=== PATIENT | male | born 1950 | race Caucasian/White ===

== ENCOUNTER 2023-08-26 17:17 | Inpatient (IN) ==
[2023-08-26] MEDS ORDERED: RAPID SEQUENCE INDUCTION BAG ONE (17:18)
[2023-08-26] MEDS ORDERED: SODIUM CHLORIDE 0.9% 1,000 ML IV SCH (17:30)
[2023-08-26] MEDS ORDERED: PIPERACILLIN/TAZOBACTAM 4.5 GM in DEXTROSE 5% MINI-B 100 ML IV ONE (17:34)
[2023-08-26 17:40] LABS: iSTAT Arterial Blood Gas HCO3 23 meg/L (19-24); iSTAT Arterial Blood Gas pCO2 35 mmHg (35-46); iSTAT Arterial Blood Gas pH 7.44 (7.35-7.45); iSTAT Arterial Blood Gas pO2 135 mmHg (80-95); iSTAT Carbon Dioxide 24 mmol/L (24-31); iSTAT Hematocrit 32 % (42-52); iSTAT Hemoglobin 10.9 g/dl (14.0-18.0); iSTAT Potassium 4.1 mmol/L (3.3-5.0); iSTAT Sodium 140 mmol/L (135-144)
--- NOTE | 2023-08-26 17:50 | XRay Report ---
XR chest 1V portable CLINICAL HISTORY: Sepsis TECHNIQUE: Single frontal radiograph of the chest was obtained. Comparison: None available at the time of this dictation. FINDINGS: Orthopedic hardware is seen overlying rib fractures. The cardiomediastinal silhouette is normal. Left retrocardiac opacity is seen. No evidence of pleural effusion or pneumothorax. IMPRESSION: Left retrocardiac opacity. which may represent atelectasis, pneumonia, and/or aspiration. ACT 112: Negative or not required by law. Electronically signed by: Brando Yuen M.D. 08/26/2023 5:49 PM
[2023-08-26 17:52] LABS: iSTAT Creatinine 2.7 mg/dl (0.6-1.3); iSTAT Hemoglobin 11.6 g/dl (14.0-18.0); iSTAT Ionized Calcium 1.14 mmol/l (1.12-1.32); iSTAT Potassium 4.4 mmol/L (3.3-5.0)
[2023-08-26 18:10] LABS: Basophils # (auto) 0.04 K/uL (0.00-0.20); Basophils % (auto) 0.2 %; Hematocrit (blood only) 31.4 % (42.0-52.0); Hemoglobin 10.4 g/dl (14.0-18.0); Immature Granulocytes % (auto) 1.2 %; Lymphocytes # (auto) 0.88 K/uL (1.20-3.40); Lymphocytes % (auto) 5.1 %; Mean Corpuscular Hemoglobin 31.4 pg (25.0-34.0); Mean Corpuscular Hgb Conc 33.1 g/dL (32.0-36.0); Mean Corpuscular Volume 94.9 fL (80.0-100.0); Mean Platelet Volume 9.7 fL (9.4-12.4); Monocytes # (auto) 1.01 K/uL (0.11-0.59); Monocytes % (auto) 5.9 %; Neutrophils # (auto) 15.06 K/uL (1.40-6.50); Neutrophils % (auto) 87.6 %; Platelet Count 373 K/uL (130-400); RDW Coefficient of Variation 13.4 % (11.5-14.5); RDW Standard Deviation 46.5 fL (36.4-46.3); Red Blood Count 3.31 M/uL (4.70-6.10); White Blood Count 17.19 K/ul (4.8-10.8)
--- NOTE | 2023-08-26 18:26 | CT Scan Report ---
Exam(s): CT HEAD Without Contrast EXAM: CT Head Without Intravenous Contrast CLINICAL HISTORY: Reason for exam: ams. TECHNIQUE: Axial computed tomography images of the head/brain without intravenous contrast. CTDI is 38.74 mGy and DLP is 156.1 mGy-cm. Automated exposure control was utilized for the study. A dose lowering technique was utilized adhering to the principles of ALARA. COMPARISON: None FINDINGS: Brain: No acute infarct or hemorrhage identified. No extra-axial fluid collection. No mass effect or midline shift. Scattered areas of hypoattenuation in the supratentorial white matter likely represent chronic small vessel ischemic changes. Ventricles and sulci: Prominence of the ventricles and sulci is likely secondary to cerebral volume loss. Bones: Normal. No bony lesion or acute fracture. Subcutaneous tissues: Normal. Sinuses: Moderate mucosal thickening in the left sphenoid sinus. Mastoid air cells: Normal. Orbits: Bilateral lens implants. Other: Atherosclerotic calcifications in the intracranial vasculature. IMPRESSION: 1. No acute intracranial abnormality. 2. Chronic small vessel ischemic changes and cerebral volume loss. Electronically signed by: Serafin Tanner M.D. 08/26/23 18:25 PM
[2023-08-26 18:27] LABS: Alanine Aminotransferase 37 U/L (7-52); Albumin Level 3.7 gm/dl (3.4-5.0); Alkaline Phosphatase 281 U/L (34-104); Anion Gap 16 (3-11); Aspartate Aminotransferase 25 U/L (13-39); BUN Creatinine Ratio 23.5 (10-20); Bilirubin Direct 0.2 mg/dl (0-0.2); Bilirubin,Total 0.6 mg/dl (0.2-1.0); Blood Urea Nitrogen 57 mg/dl (6-23); Calcium 9.4 mg/dl (8.6-10.3); Carbon Dioxide 23 mmol/L (21-32); Chloride 102 mmol/L (98-107); Est GFR (African American) 29.7 ml/min; Est GFR (Non-African American) 25.6 ml/min; Glucose 137 mg/dl (70-99(Fasting)); Potassium 3.9 mmol/L (3.5-5.1); Sodium 141 mmol/L (136-145); Total Protein 6.9 gm/dl (6.0-8.3)
[2023-08-26] MEDS ORDERED: PIPERACILLIN/TAZOBACTAM 4.5 GM/100ML D5W IV ONE (18:27)
[2023-08-26] MEDS ORDERED: SODIUM CHLORIDE 0.9% 1,000 ML IV ONE (18:28)
[2023-08-26] MEDS ORDERED: SODIUM CHLORIDE 0.9% 500 ML IV ONE (18:28)
--- NOTE | 2023-08-26 18:33 | CT Scan Report ---
Exam(s): CT CHEST Without Contrast EXAM: CT Chest Without Intravenous Contrast CLINICAL HISTORY: Reason for exam: ro empyema. TECHNIQUE: Axial computed tomography images of the chest without intravenous contrast. CTDI is 38.74 mGy and DLP is 624.41 mGy-cm. Automated exposure control was utilized for the study. A dose lowering technique was utilized adhering to the principles of ALARA. COMPARISON: Same day chest radiograph FINDINGS: Lungs: Patchy consolidations and nodules/masses throughout the lungs. The largest nodule/mass or adjacent nodules/masses is located in the left upper lobe, measuring 4.6 x 4.0 x 4.7 cm. Findings are concerning for neoplasm/metastases and pneumonia. Pleural space: Unremarkable. No pneumothorax. No significant effusion. Heart: Coronary artery and aortic valve calcifications. No cardiomegaly. No significant pericardial effusion. Bones/joints: Mild degenerative changes of the spine. Old bilateral rib fracture deformities with plate and screw fixations of some of the ribs. No dislocation. Soft tissues: Unremarkable. Vasculature: Atherosclerotic changes in the aorta. No aortic aneurysm. Lymph nodes: Unremarkable. No enlarged lymph nodes. Spleen: Calcified granuloma in the spleen. Stomach and bowel: Dilated bowel, probably colon, partially visualized in the upper abdomen and incompletely evaluated on this exam. IMPRESSION: Patchy consolidations and nodules/masses throughout the lungs. The largest nodule/mass or adjacent nodules/masses is located in the left upper lobe, measuring 4.6 x 4.0 x 4.7 cm. Findings are concerning for neoplasm/metastases and pneumonia. No empyema. Electronically signed by: Serafin Tanner M.D. 08/26/23 18:32 PM
[2023-08-26 18:38] LABS: Troponin I High Sensitivity 79.5 pg/ml (0-20)
--- NOTE | 2023-08-26 18:46 | History & Physical Report ---
Date of Service August 26, 2023 Assessment & Plan (1) Hypoxia: Plan: Patient was at [facility] from 07/24-08/26; admitted for alcohol withdrawal and seizures; required intubation; aspiration pneumonia Discharged to [facility] on 08/26 and became hypoxic at 78% on RA Started on BiPAP in the ED; FiO2 [address]AF Chest CT revealed patchy consolidations in nodules/masses throughout the lungs with the largest being in the left upper lobe Seizure precautions Continue BiPAP Keep n.p.o. for now Continuous telemetry monitoring Trend ABGs q4h Solu-Medrol 125 mg IV given in the ED Continue Solu-Medrol 40 mg IV q8h Continue pantoprazole for stress ulcers Pulmonology consulted A.m. CBC, BMP, mag, troponin, lactate (2) Aspiration pneumonia: Plan: Leukocytosis at 17.19 with neutrophil predominance Procalcitonin WNL 0.34 CXR revealed left retrocardiac opacity, which may represent atelectasis, pneumonia, and/or aspiration Zosyn 4.5g IV q8h Linezolid 600 mg IV q12h for MRSA coverage (chosen based on Patient's kidney function) Acetaminophen as needed for pain 1-3 Tramadol as needed for breakthrough pain Speech therapy eval placed in the setting of potential aspiration PNA, difficulty swallowing (3) Sepsis: Plan: Pulmonary source Lactate 2.7 --> 2.9 in the ED Blood cultures ordered, pending Fluid resuscitation given in the ED at 30cc/kg Target MAP > 65mmHg Strict I&O monitoring (4) Paroxysmal A-fib: Plan: EKG NSR at 85 bpm on arrival Continue metoprolol, Eliquis, amiodarone Patient had a planned amiodarone taper from 400 mg p.o. BID --> amiodarone 200 mg p.o. BID --> amiodarone 200 mg daily (5) Alcohol abuse: Plan: History of seizures related to EtOH abuse Seizure precautions (6) COPD (chronic obstructive pulmonary disease): Plan: Continue Incruse Ellipta DuoNeb q4h (7) Elevated troponin: Plan: Troponin 79.5, repeat pending Unable to assess if patient is having chest pain A.m. troponin (8) CKD (chronic kidney disease), stage IV: Plan: Acute on chronic BUN 57, creatinine 2.43, EGFR 25.6 Most recent renal function on 08/25: BUN 35.8, creatinine 1.5 Avoid nephrotoxic agents Plan Disposition: Admit to PCU telemetry Full code Keep n.p.o. while on BiPAP VTE PPx: On Eliquis History of Present Illness Chief Complaint: Respiratory distress Primary Care Provider: JIL PCP Pipe is a 73-year-old male with PMH of EtOH dependence, alcohol withdrawal seizures, COPD, paroxysmal A-fib, PMR, Hx of DVT, CKD stage III, and chronic lower back pain with opioid dependence. [facility] from [facility] for pneumonia. Patient was admitted to [facility] on 08/03 due to alcohol withdrawal and seizures, and required intubation and mechanical ventilation. Patient was [facility], where he became hypoxic with EMS. Patient was started on BiPAP in the ED. Nonverbal, lethargic, unable to follow commands, however responds to stimuli and is able to nod when asked questions. Vital stable at time of admission (on BiPAP; FiO2 ratio 55). ED course: NSS 1000 mL x 2 Zosyn 4.5g IV BiPAP Unable to obtain ROS According to documentation from [facility], the patient has a standing order for full resuscitation as of 08/26/2023 at 1307; patient is not currently able to provide a CODE STATUS. Per review of hospitalist progress note on 08/25/2023 patient was A&Ox 3 and conversant. He was nonverbal, lethargic upon arrival in the ED. However, he became oriented to name, birthday, and location (not month) upon initial resuscitation on BiPap. Attempted to contact patient's daughter, Hortencia, but was unable to reach. Allergies Allergy/AdvReac Type Severity Reaction Status Date / Time bee venom protein (honey bee) Allergy Severe Anaphylaxis Verified 08/26/23 19:49 ibuprofen [From Motrin] AdvReac Mild Rash Verified 08/26/23 19:13 Home Medications Medication Instructions Recorded Confirmed Type acetaminophen 325 mg tablet 650 mg PO Q4H PRN Pain (Scale 08/26/23 08/26/23 History (Tylenol) Score 1-3) albuterol sulfate 90 mcg/actuation 1 puff inhalation Q6H PRN Wheezing 08/26/23 08/26/23 History aerosol inhaler amiodarone 200 mg tablet 200 mg PO DAILY 08/26/23 08/26/23 History amiodarone 200 mg tablet 200 mg PO Q12H 08/26/23 08/26/23 History amiodarone 200 mg tablet 400 mg PO BID 08/26/23 08/26/23 History apixaban 5 mg tablet (Eliquis) 5 mg PO Q12H 08/26/23 08/26/23 History bisacodyl 10 mg rectal suppository 10 mg AR DAILY PRN Constipation 08/26/23 08/26/23 History cholecalciferol (vitamin D3) 50 50 mcg PO DAILY 08/26/23 08/26/23 History mcg (2,000 unit) capsule (Vitamin D3) dextrose 40 % oral gel 1 ea PO DIRECTED PRN 08/26/23 08/26/23 History Hypoglycemia docusate sodium 100 mg capsule 100 mg PO BID 08/26/23 08/26/23 History hydroxychloroquine 200 mg tablet 200 mg PO Q12H 08/26/23 08/26/23 History ipratropium 0.5 mg-albuterol 3 mg 3 ml inhalation Q4H 08/26/23 08/26/23 History (2.5 mg base)/3 mL nebulization soln magnesium hydroxide 400 mg/5 mL 30 ml PO DAILY PRN Constipation 08/26/23 08/26/23 History oral suspension (Milk of Magnesia) metoprolol tartrate 25 mg tablet 25 mg PO Q12H 08/26/23 08/26/23 History multivitamin with minerals 1 tab PO DAILY 08/26/23 08/26/23 History nortriptyline 25 mg capsule 50 mg PO DAILY 08/26/23 08/26/23 History ondansetron HCl 4 mg tablet 4 mg PO Q4H PRN NAUSEA/VOMITING 08/26/23 08/26/23 History pantoprazole 40 mg tablet,delayed 40 mg PO DAILYBB 08/26/23 08/26/23 History release polyethylene glycol 3350 17 17 g PO QDL PRN Constipation 08/26/23 08/26/23 History gram/dose oral powder (Miralax) prednisone 20 mg tablet 40 mg PO DAILY 08/26/23 08/26/23 History sennosides 8.6 mg-docusate sodium 1 tab-cap PO QDL PRN Constipation 08/26/23 08/26/23 History 50 mg tablet (Senokot-S) sodium phosphates 19 gram-7 118 ml AR DAILY PRN Constipation 08/26/23 08/26/23 History gram/118 mL enema (Fleet Enema) tizanidine 2 mg tablet 2 mg PO TID PRN MUSCLE SPASMS 08/26/23 08/26/23 History tramadol 50 mg tablet 50 mg PO Q6H PRN Pain (Scale Score 08/26/23 08/26/23 History 4-6) tramadol 50 mg tablet 100 mg PO Q6H PRN Pain (Scale 08/26/23 08/26/23 History Score 7-10) umeclidinium 62.5 mcg/actuation 1 inh inhalation DAILY 08/26/23 08/26/23 History blister powder for inhalation (Incruse Ellipta) zinc sulfate 50 mg zinc (220 mg) 50 mg PO DAILY 08/26/23 08/26/23 History capsule Past Med/Surg History Medical History (Updated 08/27/23 @ 11:57 by Neal Randall MD) Abnormal CT scan, chest CKD (chronic kidney disease), stage IV Acute metabolic encephalopathy Severe protein-calorie malnutrition COPD (chronic obstructive pulmonary disease) Polymyalgia rheumatica Stress-induced cardiomyopathy SHEBA (acute kidney injury) Alcohol abuse Paroxysmal A-fib Aspiration pneumonia Social History Smoking Status: Former smoker Second Hand Exposure: No; Do You Dip or Chew Tobacco: No; Tobacco Cessation Education Requested by Patient: No Hx Alcohol Use: Yes Alcohol type: beer and hard liquor Hx Substance Use: No Preferred Language: Mohawk Communication Ability: 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 Beliefs That Will Affect Care: None Current Living Situation: Alone Current Living Situation Comment: [facility] Other Information That Helps Us Care for You: No Feels Safe at Home: Hesitant to Answer Safety Concerns: Feels Safe At This Time Assistive Devices: Cane Review of Systems Review of Systems: See HPI above Physical Exam Physical Exam: General: Frail-appearing; on BiPAP; drifting to the left; acute respiratory distress; lethargic; non-toxic appearing; cachectic appearance cooperative HEENT: normocephalic, atraumatic; difficulty opening eyes; no scleral icterus; dry mucus membrane; vision and hearing grossly intact Neck: supple; no lymphadenopathy; trachea midline Skin: warm, dry without signs of tenting; no cyanosis; no rashes, bruising, lesions, or erythema noted CV: chest wall NTP; RRR; S1/S2 normal; no murmurs/rubs/gallops; pulses intact and symmetric at radial, DP, and PT Lungs: acute respiratory distress; symmetrical chest wall expansion; decreased breath sounds auscultated at the lower lung fried B/L ABD: Soft, NTP; BS present; no rebound/guarding; no ascites; no distention MSK: no tics or fasciculations; no edema noted in the LEs b/l Neuro: Patient is minimally conversant with BiPAP on; lethargic; responds to stimuli; does not respond to commands, such as wiggling toes Results & Data Results & Data Vital Signs (Past 12 Hours) Vital Signs Temp Pulse Resp BP Pulse Ox O2 Del Method FiO2 08/26/23 18:30 122/81 08/26/23 18:30 87 27 H 98 08/26/23 18:27 87 24 94 08/26/23 18:27 37.3 C 129/85 08/26/23 18:19 89 27 H 97 55 08/26/23 18:16 86 26 H 97 08/26/23 17:40 BiPAP 08/26/23 17:30 106/75 08/26/23 17:30 85 27 H 97 BiPAP 08/26/23 17:30 87 27 H 80 08/26/23 17:27 85 28 H 08/26/23 17:22 83 34 H 86/54 L 92 BiPAP Laboratory Results Abnormal lab results 08/26/23 08/26/23 08/26/23 Range/Units 17:27 17:38 17:47 WBC 17.19 H (4.8-10.8) K/ul RBC 3.31 L (4.70-6.10) M/uL Hgb 10.4 L (14.0-18.0) g/dl POC Hgb 10.9 L 11.6 L (14.0-18.0) g/dl Hct 31.4 L (42.0-52.0) % POC Hct 32 L 34 L (42-52) % RDW Std Deviation 46.5 H (36.4-46.3) fL Neut # (Auto) 15.06 H (1.40-6.50) K/uL Lymph # (Auto) 0.88 L (1.20-3.40) K/uL Andrew # (Auto) 1.01 H (0.11-0.59) K/uL PT 14.3 H (9.0-12.0) Seconds INR 1.3 H (0.9-1.1) POC pO2 135 H (80-95) mmHg POC ABG O2 Sat 99.0 H (90-95) % POC Chloride 100 L (101-112) mmol/L Anion Gap 16 H (3-11) POC BUN 50 H (7-18) mg/dl BUN 57 H (6-23) mg/dl Creatinine 2.43 H (0.6-1.4) mg/dl POC Creatinine 2.7 H (0.6-1.3) mg/dl BUN/Creatinine Ratio 23.5 H (10-20) Glucose 137 H (70-99(Fasting)) mg/dl POC Glucose (other) 134 H (70-99) mg/dl Lactate 2.7 H* (0.4-2.0) mmol/L Alkaline Phosphatase 281 H (34-104) U/L Troponin I High Sens 79.5 H* (0-20) pg/ml Diagnostic Findings Chest X-Ray 08/26/23 17:22 XR chest 1V portable CLINICAL HISTORY: Sepsis TECHNIQUE: Single frontal radiograph of the chest was obtained. Comparison: None available at the time of this dictation. FINDINGS: Orthopedic hardware is seen overlying rib fractures. The cardiomediastinal silhouette is normal. Left retrocardiac opacity is seen. No evidence of pleural effusion or pneumothorax. IMPRESSION: Left retrocardiac opacity. which may represent atelectasis, pneumonia, and/or aspiration. ACT 112: Negative or not required by law. Electronically signed by: Brando Yuen M.D. 08/26/2023 5:[address] 08/26/23 17:22 Exam(s): CT HEAD Without Contrast EXAM: CT Head Without Intravenous Contrast CLINICAL HISTORY: Reason for exam: ams. TECHNIQUE: Axial computed tomography images of the head/brain without intravenous contrast. CTDI is 38.74 mGy and DLP is 156.1 mGy-cm. Automated exposure control was utilized for the study. A dose lowering technique was utilized adhering to the principles of ALARA. COMPARISON: None FINDINGS: Brain: No acute infarct or hemorrhage identified. No extra-axial fluid collection. No mass effect or midline shift. Scattered areas of hypoattenuation in the supratentorial white matter likely represent chronic small vessel ischemic changes. Ventricles and sulci: Prominence of the ventricles and sulci is likely secondary to cerebral volume loss. Bones: Normal. No bony lesion or acute fracture. Subcutaneous tissues: Normal. Sinuses: Moderate mucosal thickening in the left sphenoid sinus. Mastoid air cells: Normal. Orbits: Bilateral lens implants. Other: Atherosclerotic calcifications in the intracranial vasculature. IMPRESSION: 1. No acute intracranial abnormality. 2. Chronic small vessel ischemic changes and cerebral volume loss. Electronically signed by: Serafin Tanner M.D. 08/26/23 18:[address] 08/26/23 17:48 Exam(s): CT CHEST Without Contrast EXAM: CT Chest Without Intravenous Contrast CLINICAL HISTORY: Reason for exam: ro empyema. TECHNIQUE: Axial computed tomography images of the chest without intravenous contrast. CTDI is 38.74 mGy and DLP is 624.41 mGy-cm. Automated exposure control was utilized for the study. A dose lowering technique was utilized adhering to the principles of ALARA. COMPARISON: Same day chest radiograph FINDINGS: Lungs: Patchy consolidations and nodules/masses throughout the lungs. The largest nodule/mass or adjacent nodules/masses is located in the left upper lobe, measuring 4.6 x 4.0 x 4.7 cm. Findings are concerning for neoplasm/metastases and pneumonia. Pleural space: Unremarkable. No pneumothorax. No significant effusion. Heart: Coronary artery and aortic valve calcifications. No cardiomegaly. No significant pericardial effusion. Bones/joints: Mild degenerative changes of the spine. Old bilateral rib fracture deformities with plate and screw fixations of some of the ribs. No dislocation. Soft tissues: Unremarkable. Vasculature: Atherosclerotic changes in the aorta. No aortic aneurysm. Lymph nodes: Unremarkable. No enlarged lymph nodes. Spleen: Calcified granuloma in the spleen. Stomach and bowel: Dilated bowel, probably colon, partially visualized in the upper abdomen and incompletely evaluated on this exam. IMPRESSION: Patchy consolidations and nodules/masses throughout the lungs. The largest nodule/mass or adjacent nodules/masses is located in the left upper lobe, measuring 4.6 x 4.0 x 4.7 cm. Findings are concerning for neoplasm/metastases and pneumonia. No empyema. Electronically signed by: Serafin Tanner M.D. 08/26/23 18:32 PM Code Status & VTE Plan Code Status Full code VTE Prophylaxis Plan VTE Prophylaxis will be ordered: Yes Supervising Physician Co-Signing Physician Notes Attending addendum: I have physically seen this patient, have supervised the MARIAELENA's activities, and agree with the H&P unless as otherwise noted. Assessment and Plan: Acute respiratory failure with hypoxia/aspiration pneumonia/COPD exacerbation- The patient will be admitted to telemetry for serial cardiac enzymes, serial EKG's, cardiac rhythm monitoring and a 2-D echocardiogram with Dopplers. History of recent admission at [facility] from 07/24-08/26 for alcohol withdrawal and seizures complicated by aspiration pneumonia requiring intubation. [facility], was noted to be hypoxic on room air with a pulse ox of 78%, and was referred to the ED at [facility] Will continue BiPAP started in ED, and follow serial ABGs NPO Solu-Medrol 125 mg IV given in ED Continue Solu-Medrol 40 mg IV every 8 hours Follow serial CBC with differential, chemistry profile, magnesium, troponin and lactate CT head without IV contrast shows no acute abnormality, but does show chronic small vessel change and cerebral volume loss CT chest shows patchy consolidations and nodules/masses throughout the lungs. The largest nodule/mass or adjacent nodules/masses in the left upper lobe measures 4.6 x 4.0 x 4.7 cm, with findings concerning for neoplasm/metastases and pneumonia Linezolid 600 mg IV every 12 hours Zosyn 4.5 g IV every 8 hours Duonebs every 4 hours while awake and every 2 hours when necessary. Consult pulmonology Sepsis due to aspiration pneumonia and acute respiratory failure with hypoxia- Lactate 2.7 on follow-up 2.9 Follow sputum cultures follow blood cultures and sensitivities Acute kidney injury superimposed on CKD stage IV- Creatinine 2.43 in the ED, with base from 08/25 at outside hospital 1.5 Continue IV fluids as noted, recheck laboratories in a.m. Avoiding vancomycin IV and lieu of linezolid Remaining orders and notations as noted PG Care Time/CCT Total # of Minutes Spent Total Time Spent with Patient: Total time spent is greater than 50% in coordination of care (as documented) at patient's floor/unit and/or counseling patient: [place] [address] INT INP/OBS CARE 3/75MIN Patient Type New Medical Decision Making High Complexity Diagnoses Hypoxia R09.02 Aspiration pneumonia J69.0 Sepsis A41.9 Paroxysmal A-fib I48.0 Alcohol abuse F10.10 COPD (chronic obstructive pulmonary disease) J44.9 Elevated troponin R79.89 CKD (chronic kidney disease), stage IV N18.4
[2023-08-26 18:47] LABS: INR 1.3 (0.9-1.1); Partial Thromboplastin Time 27 Seconds (21-31); Prothrombin Time 14.3 Seconds (9.0-12.0)
[2023-08-26 19:26] LABS: Adenovirus PCR Not Detected (NotDetected); Bordetella parapertussis PCR Not Detected (NotDetected); Bordetella pertussis PCR Not Detected (NotDetected); Chlamydia pneumoniae PCR Not Detected (NotDetected); Coronavirus 229E PCR Not Detected (NotDetected); Coronavirus CoV-2 (COVID19)PCR Not Detected (NotDetected); Coronavirus HKU1 PCR Not Detected (NotDetected); Coronavirus NL63 PCR Not Detected (NotDetected); Coronavirus OC43PCR Not Detected (NotDetected); Human Metapneumovirus PCR Not Detected (NotDetected); Influenza A PCR Not Detected (NotDetected); Influenza B PCR Not Detected (NotDetected); Mycoplasma pneumoniae PCR Not Detected (NotDetected); Parainfluenza Virus 1 PCR Not Detected (NotDetected); Parainfluenza Virus 2 PCR Not Detected (NotDetected); Parainfluenza Virus 3 PCR Not Detected (NotDetected); Parainfluenza Virus 4 PCR Not Detected (NotDetected); Respiratory Syncytial VirusPCR Not Detected (NotDetected); Rhinovirus/Enterovirus PCR Not Detected (NotDetected)
[2023-08-26] MEDS ORDERED: THIAMINE HCL 500 MG in SODIUM CHLORIDE 0.9% 50 ML IV STA (19:43)
[2023-08-26] MEDS ORDERED: FOLIC ACID 1 MG in SYRINGE 9.8 ML IV STA (19:45)
[2023-08-26] MEDS ORDERED: methylPREDNISolone 125 MG/2 ML VIAL IV STA (19:52)
[2023-08-26] MEDS ORDERED: LINEZOLID 600 MG/300 ML BAG IV SCH (20:00)
--- NOTE | 2023-08-26 20:02 | Emergency Department Note ---
History of Present Illness General Chief complaint: Respiratory Distress Stated complaint: RESPIRATORY FAILURE Time Seen by Provider: 08/26/23 17:21 Source: EMS History of Present Illness Provider complaint: Respiratory distress 73-year-old male presents emergency department for respiratory distress. Patient is from [facility]. EMS reports that the patient was transferred there today from [facility]. EMS reports that the patient was at [facility] and was intubated for pneumonia. EMS reports that on arrival at [facility] the patient was hypotensive, hypoxic and tachycardic. They started the patient on CPAP. Home Medications Medication Instructions Recorded Confirmed Type acetaminophen 325 mg tablet 650 mg PO Q4H PRN Pain (Scale 08/26/23 08/26/23 History (Tylenol) Score 1-3) albuterol sulfate 90 mcg/actuation 1 puff inhalation Q6H PRN Wheezing 08/26/23 08/26/23 History aerosol inhaler amiodarone 200 mg tablet 200 mg PO DAILY 08/26/23 08/26/23 History amiodarone 200 mg tablet 200 mg PO Q12H 08/26/23 08/26/23 History amiodarone 200 mg tablet 400 mg PO BID 08/26/23 08/26/23 History apixaban 5 mg tablet (Eliquis) 5 mg PO Q12H 08/26/23 08/26/23 History bisacodyl 10 mg rectal suppository 10 mg VA DAILY PRN Constipation 08/26/23 08/26/23 History cholecalciferol (vitamin D3) 50 50 mcg PO DAILY 08/26/23 08/26/23 History mcg (2,000 unit) capsule (Vitamin D3) dextrose 40 % oral gel 1 ea PO DIRECTED PRN 08/26/23 08/26/23 History Hypoglycemia docusate sodium 100 mg capsule 100 mg PO BID 08/26/23 08/26/23 History hydroxychloroquine 200 mg tablet 200 mg PO Q12H 08/26/23 08/26/23 History ipratropium 0.5 mg-albuterol 3 mg 3 ml inhalation Q4H 08/26/23 08/26/23 History (2.5 mg base)/3 mL nebulization soln magnesium hydroxide 400 mg/5 mL 30 ml PO DAILY PRN Constipation 08/26/23 08/26/23 History oral suspension (Milk of Magnesia) metoprolol tartrate 25 mg tablet 25 mg PO Q12H 08/26/23 08/26/23 History multivitamin with minerals 1 tab PO DAILY 08/26/23 08/26/23 History nortriptyline 25 mg capsule 50 mg PO DAILY 08/26/23 08/26/23 History ondansetron HCl 4 mg tablet 4 mg PO Q4H PRN NAUSEA/VOMITING 08/26/23 08/26/23 History pantoprazole 40 mg tablet,delayed 40 mg PO DAILYBB 08/26/23 08/26/23 History release polyethylene glycol 3350 17 17 g PO QDL PRN Constipation 08/26/23 08/26/23 History gram/dose oral powder (Miralax) prednisone 20 mg tablet 40 mg PO DAILY 08/26/23 08/26/23 History sennosides 8.6 mg-docusate sodium 1 tab-cap PO QDL PRN Constipation 08/26/23 08/26/23 History 50 mg tablet (Senokot-S) sodium phosphates 19 gram-7 118 ml VA DAILY PRN Constipation 08/26/23 08/26/23 History gram/118 mL enema (Fleet Enema) tizanidine 2 mg tablet 2 mg PO TID PRN MUSCLE SPASMS 08/26/23 08/26/23 History tramadol 50 mg tablet 50 mg PO Q6H PRN Pain (Scale Score 08/26/23 08/26/23 History 4-6) tramadol 50 mg tablet 100 mg PO Q6H PRN Pain (Scale 08/26/23 08/26/23 History Score 7-10) umeclidinium 62.5 mcg/actuation 1 inh inhalation DAILY 08/26/23 08/26/23 History blister powder for inhalation (Incruse Ellipta) zinc sulfate 50 mg zinc (220 mg) 50 mg PO DAILY 08/26/23 08/26/23 History capsule Allergies Allergy/AdvReac Type Severity Reaction Status Date / Time bee venom protein (honey bee) Allergy Severe Anaphylaxis Verified 08/26/23 19:49 ibuprofen [From Motrin] AdvReac Mild Rash Verified 08/26/23 19:13 Past Med/Surg History Medical History CKD (chronic kidney disease), stage IV Acute metabolic encephalopathy Severe protein-calorie malnutrition COPD (chronic obstructive pulmonary disease) Polymyalgia rheumatica Stress-induced cardiomyopathy SHEBA (acute kidney injury) Alcohol abuse Paroxysmal A-fib Aspiration pneumonia Social History Smoking Status: Former smoker Feels Safe at Home: Yes Physical Exam Vital Signs Vital Signs - 24 hr 08/26/23 17:22 08/26/23 17:22 08/26/23 17:26 Temperature Temperature Source Pulse Rate 83 86 Pulse Rate [Apical] Pulse Rate from SpO2 Sensor Pulse Rhythm Regular Respiratory Rate 34 H Respiratory Effort / Characteristics Labored Short of Breath Non-Labored Spontaneous Respiratory Depth Shallow Normal Respiratory Pattern Agonal Blood Pressure 86/54 L Blood Pressure [Left Arm] Blood Pressure Mean 64 Blood Pressure Mean [Left Arm] Blood Pressure Position [Left Arm] Pulse Oximetry 92 Oxygen Delivery Method BiPAP Fraction of Inspired Oxygen SaO2/FiO2 Ratio Sepsis Recent Fever Within 48 Hours No Sepsis New/Unexplained Change in Mental Status Yes Sepsis Action Taken by Nursing Physician Notified 08/26/23 17:27 08/26/23 17:30 08/26/23 17:30 Temperature Temperature Source Pulse Rate 85 87 85 Pulse Rate [Apical] Pulse Rate from SpO2 Sensor Pulse Rhythm Respiratory Rate 28 H 27 H 27 H Respiratory Effort / Characteristics Non-Labored Spontaneous Respiratory Depth Normal Respiratory Pattern Regular Blood Pressure Blood Pressure [Left Arm] Blood Pressure Mean Blood Pressure Mean [Left Arm] Blood Pressure Position [Left Arm] Pulse Oximetry 97 Oxygen Delivery Method BiPAP Fraction of Inspired Oxygen 80 SaO2/FiO2 Ratio Sepsis Recent Fever Within 48 Hours Sepsis New/Unexplained Change in Mental Status Sepsis Action Taken by Nursing 08/26/23 17:30 08/26/23 17:40 08/26/23 18:16 Temperature Temperature Source Pulse Rate 86 Pulse Rate [Apical] Pulse Rate from SpO2 Sensor 88 Pulse Rhythm Respiratory Rate 26 H Respiratory Effort / Characteristics Respiratory Depth Respiratory Pattern Blood Pressure 106/75 Blood Pressure [Left Arm] Blood Pressure Mean 80 Blood Pressure Mean [Left Arm] Blood Pressure Position [Left Arm] Pulse Oximetry 97 Oxygen Delivery Method BiPAP Fraction of Inspired Oxygen SaO2/FiO2 Ratio Sepsis Recent Fever Within 48 Hours Sepsis New/Unexplained Change in Mental Status Sepsis Action Taken by Nursing 08/26/23 18:19 08/26/23 18:27 08/26/23 18:27 Temperature 37.3 C Temperature Source Pulse Rate 89 87 Pulse Rate [Apical] Pulse Rate from SpO2 Sensor 86 Pulse Rhythm Respiratory Rate 27 H 24 Respiratory Effort / Characteristics Non-Labored Spontaneous Respiratory Depth Normal Respiratory Pattern Regular Blood Pressure 129/85 Blood Pressure [Left Arm] Blood Pressure Mean 103 Blood Pressure Mean [Left Arm] Blood Pressure Position [Left Arm] Pulse Oximetry 97 94 Oxygen Delivery Method Fraction of Inspired Oxygen 55 SaO2/FiO2 Ratio Sepsis Recent Fever Within 48 Hours Sepsis New/Unexplained Change in Mental Status Sepsis Action Taken by Nursing 08/26/23 18:30 08/26/23 18:30 08/26/23 18:58 Temperature Temperature Source Pulse Rate 87 85 Pulse Rate [Apical] Pulse Rate from SpO2 Sensor 86 Pulse Rhythm Respiratory Rate 27 H 22 Respiratory Effort / Characteristics Respiratory Depth Respiratory Pattern Blood Pressure 122/81 Blood Pressure [Left Arm] Blood Pressure Mean 101 Blood Pressure Mean [Left Arm] Blood Pressure Position [Left Arm] Pulse Oximetry 98 97 Oxygen Delivery Method BiPAP Fraction of Inspired Oxygen 55 SaO2/FiO2 Ratio 176 Sepsis Recent Fever Within 48 Hours Sepsis New/Unexplained Change in Mental Status Sepsis Action Taken by Nursing 08/26/23 19:00 Temperature 37.4 C Temperature Source Mcintosh Cath ( Temp Sensing) Pulse Rate Pulse Rate [Apical] 86 Pulse Rate from SpO2 Sensor Pulse Rhythm Respiratory Rate 24 Respiratory Effort / Characteristics Respiratory Depth Normal Respiratory Pattern Blood Pressure Blood Pressure [Left Arm] 116/81 Blood Pressure Mean Blood Pressure Mean [Left Arm] 92 Blood Pressure Position [Left Arm] Lying Pulse Oximetry 94 Oxygen Delivery Method BiPAP Fraction of Inspired Oxygen 55 SaO2/FiO2 Ratio 170 Sepsis Recent Fever Within 48 Hours Sepsis New/Unexplained Change in Mental Status Sepsis Action Taken by Nursing Physical Exam GENERAL: Patient is extremely ill-appearing cachectic and ashen. HENT: Exam performed. - Head: Normocephalic and atraumatic. EYES: Conjunctivae and EOM are normal. Pupils are equal, round, and reactive to light. Right eye exhibits no discharge. Left eye exhibits no discharge. No scleral icterus. NECK: Normal range of motion. Neck supple. No JVD present. CV: Tachycardic rate, regular rhythm, normal heart sounds and intact distal pulses. There is no peripheral edema. Palpable radial pulses bue. PULM/CHEST: Patient in respiratory distress on CPAP. Rhonchi bilaterally. ABD: The abdomen is soft. Nondistended. NEURO: GCS eye subscore is 4. GCS verbal subscore is 2. GCS motor subscore is 5. Course Course 1715: Received a call from EMS, I instructed them to start IV fluids on the patient's given his tachycardia and hypoxia 172: The patient was evaluated in room A1. A complete history and physical exam was performed Cardiac monitoring: An order was placed for continuous cardiac monitoring. The monitor shows a rate of 100 with sinus tachycardia rhythm interpreted by me Patient's blood pressure is improving with IV fluids that was started by EMS. Patient was quickly transitioned from CPAP from EMS to BiPAP. External medical records from the [facility] and [facility] were reviewed. According to documentation from [facility], patient is a 73-year-old male with past medical history notable for ethanol dependence, COPD, A-fib, CKD stage III, and chronic lower back pain with opioid dependence. It was thought that the patient was having a COPD exacerbation in the emergency department and the patient was sent for a CT of his abdomen there, at [facility] the patient sees and they thought the patient had a seizure secondary to alcohol withdrawal. The patient was intubated for airway protection. The patient was started on Zosyn while he was intubated because they thought he had a left bronchopneumonia and sepsis. The patient was extubated on August 09, 2023. 1735: Chest x-ray viewed by me shows left-sided infiltrate. ABG on BiPAP shows a arterial pH of 7.435 pCO2 34.9 pO2 135 bicarb 24 oxygen saturation 99%. Patient will be continued on BiPAP. Zosyn and vancomycin will be ordered for the patient. 30 cc/kg normal saline will be ordered for the patient. 1744: Blood pressure is improving with IV fluids and patient is tolerating BiPAP well. Discussed the case with Dr. Randall regarding the patient and he states to obtain a CT of the chest because he afraid that the patient might be developing an MPM on his chest x-ray. 1835: Vital signs stable on BiPAP. Labs show white blood cell count of 17.19. Hemoglobin 10.4 neutrophil count 15.06. Creatinine 2.43. Lactic acid 2.7. High-sensitivity troponin 79.5. Discussed case with Dr. Randall ICU and both he and I feel that as the patient's blood pressure has improved with IV fluids and he is tolerating BiPAP well the patient does not need ICU at this time and he can be admitted to the floor. [facility] hospitalist team Dr. Joseph will be contacted for admission. Administered Medications Discontinued Medications Sodium Chloride (Nss) 1,000 mls @ 999 mls/hr IV .Q1H1M JOO Stop: 08/26/23 18:30 Last Admin: 08/26/23 18:28 Dose: 999 mls/hr Documented By: HS Piperacillin Sod/Tazobactam (Sod 4.5 gm/ Dextrose) 100 mls @ 200 mls/hr IV NOW ONE; Protocol Stop: 08/26/23 18:03 Last Admin: 08/26/23 18:33 Dose: Not Given Documented By: HS Sodium Chloride (Nss) 1,000 mls @ 999 mls/hr IV .Q1H1M ONE Stop: 08/26/23 19:28 Last Admin: 08/26/23 18:34 Dose: 999 mls/hr Documented By: HS Miscellaneous (Rapid Sequence Induction Bag) Confirm Administered Dose 1 each N/A .STK-MED ONE Stop: 08/26/23 17:19 Last Admin: 08/26/23 18:35 Dose: Not Given Documented By: HS Piperacillin Sod/Tazobactam Sod (Piperacillin/Tazobactam 4.5 Gm/100ml D5w) Confirm Administered Dose 4.5 gm IV .STK-MED ONE Stop: 08/26/23 18:28 Last Admin: 08/26/23 18:28 Dose: 4.5 gm Documented By: HS Critical Care Time Critical Care Time: Yes Total Critical Care Time: 78 I have personally spent greater than 78 minutes of critical care time in the direct management of this patient. This includes bedside care, interpretation of diagnostic studies, and testing, discussion with consultants, patient, and family members, and other required patient management activities. This 78 minutes is in excess of all separately billable procedures. Medical Decision Making Laboratory Data Attestation: I reviewed the patient's lab results. 08/26/23 17:47 08/26/23 17:47 Lab Results 08/26/23 08/26/23 08/26/23 Range/Units 17:27 17:38 17:47 WBC 17.19 H (4.8-10.8) K/ul RBC 3.31 L (4.70-6.10) M/uL Hgb 10.4 L (14.0-18.0) g/dl POC Hgb 10.9 L 11.6 L (14.0-18.0) g/dl Hct 31.4 L (42.0-52.0) % POC Hct 32 L 34 L (42-52) % MCV 94.9 (80.0-100.0) fL MCH 31.4 (25.0-34.0) pg MCHC 33.1 (32.0-36.0) g/dL RDW Std Deviation 46.5 H (36.4-46.3) fL RDW Coeff of Jesse 13.4 (11.5-14.5) % Plt Count 373 (130-400) K/uL MPV 9.7 (9.4-12.4) fL Immature Gran % (Auto) 1.2 % Neut % (Auto) 87.6 % Lymph % (Auto) 5.1 % Telfair % (Auto) 5.9 % Eos % (Auto) 0.0 % Baso % (Auto) 0.2 % Neut # (Auto) 15.06 H (1.40-6.50) K/uL Lymph # (Auto) 0.88 L (1.20-3.40) K/uL Telfair # (Auto) 1.01 H (0.11-0.59) K/uL Eos # (Auto) 0.00 (0.00-0.50) K/uL Baso # (Auto) 0.04 (0.00-0.20) K/uL Immature Gran # (Auto) 0.20 (0.01-0.20) K/uL PT 14.3 H (9.0-12.0) Seconds INR 1.3 H (0.9-1.1) APTT 27 (21-31) Seconds PTT Ratio 1.0 POC pH 7.44 (7.35-7.45) POC pCO2 35 (35-46) mmHg POC pO2 135 H (80-95) mmHg POC HCO3 23 (19-24) lachelle/L POC Total CO2 24 26 (24-31) mmol/L POC Base Excess -1.0 (-9-1.8) lachelle/L POC ABG O2 Sat 99.0 H (90-95) % POC Sodium 140 140 (135-144) mmol/L Sodium 141 (136-145) mmol/L POC Potassium 4.1 4.4 (3.3-5.0) mmol/L Potassium 3.9 (3.5-5.1) mmol/L POC Chloride 100 L (101-112) mmol/L Chloride 102 (98-107) mmol/L Carbon Dioxide 23 (21-32) mmol/L Anion Gap 16 H (3-11) POC Anion Gap 19.0 (16-25) mmol/L POC BUN 50 H (7-18) mg/dl BUN 57 H (6-23) mg/dl Creatinine 2.43 H (0.6-1.4) mg/dl POC Creatinine 2.7 H (0.6-1.3) mg/dl Est Cr Clr Drug Dosing Not Reportable Est GFR ( Amer) 29.7 ml/min Est GFR (Non-Af Amer) 25.6 ml/min BUN/Creatinine Ratio 23.5 H (10-20) Glucose 137 H (70-99(Fasting)) mg/dl POC Glucose (other) 134 H (70-99) mg/dl Lactate 2.7 H* (0.4-2.0) mmol/L Calcium 9.4 (8.6-10.3) mg/dl POC Ioniz Calcium José Antonio 1.14 (1.12-1.32) mmol/l Magnesium 2.0 (1.7-2.4) mg/dl Total Bilirubin 0.6 (0.2-1.0) mg/dl Direct Bilirubin 0.2 (0-0.2) mg/dl AST 25 (13-39) U/L ALT 37 (7-52) U/L Alkaline Phosphatase 281 H (34-104) U/L Troponin I High Sens 79.5 H* (0-20) pg/ml Total Protein 6.9 (6.0-8.3) gm/dl Albumin 3.7 (3.4-5.0) gm/dl Procalcitonin 0.34 (0-0.5) ng/ml Adenovirus (PCR) (NotDetected) B. pertussis DNA (PCR) (NotDetected) B.parapertussis DNA PCR (NotDetected) C. pneumoniae DNA (PCR) (NotDetected) Coronavirus OC43 (PCR) (NotDetected) Coronavirus HKU1 (PCR) (NotDetected) Coronavirus 229E (PCR) (NotDetected) SARS-CoV-2 (PCR) (NotDetected) Coronavirus NL63 (PCR) (NotDetected) Human Metapneumovir PCR (NotDetected) Influenza Type A (PCR) (NotDetected) Influenza Type B (PCR) (NotDetected) M. pneumoniae (PCR) (NotDetected) Parainfluenza 1 (PCR) (NotDetected) Parainfluenza 2 (PCR) (NotDetected) Parainfluenza 3 (PCR) (NotDetected) Parainfluenza 4 (PCR) (NotDetected) RSV (PCR) (NotDetected) Entero/Rhino (PCR) (NotDetected) 08/26/23 Range/Units 18:26 WBC (4.8-10.8) K/ul RBC (4.70-6.10) M/uL Hgb (14.0-18.0) g/dl POC Hgb (14.0-18.0) g/dl Hct (42.0-52.0) % POC Hct (42-52) % MCV (80.0-100.0) fL MCH (25.0-34.0) pg MCHC (32.0-36.0) g/dL RDW Std Deviation (36.4-46.3) fL RDW Coeff of Jesse (11.5-14.5) % Plt Count (130-400) K/uL MPV (9.4-12.4) fL Immature Gran % (Auto) % Neut % (Auto) % Lymph % (Auto) % Telfair % (Auto) % Eos % (Auto) % Baso % (Auto) % Neut # (Auto) (1.40-6.50) K/uL Lymph # (Auto) (1.20-3.40) K/uL Telfair # (Auto) (0.11-0.59) K/uL Eos # (Auto) (0.00-0.50) K/uL Baso # (Auto) (0.00-0.20) K/uL Immature Gran # (Auto) (0.01-0.20) K/uL PT (9.0-12.0) Seconds INR (0.9-1.1) APTT (21-31) Seconds PTT Ratio POC pH (7.35-7.45) POC pCO2 (35-46) mmHg POC pO2 (80-95) mmHg POC HCO3 (19-24) lachelle/L POC Total CO2 (24-31) mmol/L POC Base Excess (-9-1.8) lachelle/L POC ABG O2 Sat (90-95) % POC Sodium (135-144) mmol/L Sodium (136-145) mmol/L POC Potassium (3.3-5.0) mmol/L Potassium (3.5-5.1) mmol/L POC Chloride (101-112) mmol/L Chloride (98-107) mmol/L Carbon Dioxide (21-32) mmol/L Anion Gap (3-11) POC Anion Gap (16-25) mmol/L POC BUN (7-18) mg/dl BUN (6-23) mg/dl Creatinine (0.6-1.4) mg/dl POC Creatinine (0.6-1.3) mg/dl Est Cr Clr Drug Dosing Est GFR ( Amer) ml/min Est GFR (Non-Af Amer) ml/min BUN/Creatinine Ratio (10-20) Glucose (70-99(Fasting)) mg/dl POC Glucose (other) (70-99) mg/dl Lactate (0.4-2.0) mmol/L Calcium (8.6-10.3) mg/dl POC Ioniz Calcium José Antonio (1.12-1.32) mmol/l Magnesium (1.7-2.4) mg/dl Total Bilirubin (0.2-1.0) mg/dl Direct Bilirubin (0-0.2) mg/dl AST (13-39) U/L ALT (7-52) U/L Alkaline Phosphatase (34-104) U/L Troponin I High Sens (0-20) pg/ml Total Protein (6.0-8.3) gm/dl Albumin (3.4-5.0) gm/dl Procalcitonin (0-0.5) ng/ml Adenovirus (PCR) Not Detected (NotDetected) B. pertussis DNA (PCR) Not Detected (NotDetected) B.parapertussis DNA PCR Not Detected (NotDetected) C. pneumoniae DNA (PCR) Not Detected (NotDetected) Coronavirus OC43 (PCR) Not Detected (NotDetected) Coronavirus HKU1 (PCR) Not Detected (NotDetected) Coronavirus 229E (PCR) Not Detected (NotDetected) SARS-CoV-2 (PCR) Not Detected (NotDetected) Coronavirus NL63 (PCR) Not Detected (NotDetected) Human Metapneumovir PCR Not Detected (NotDetected) Influenza Type A (PCR) Not Detected (NotDetected) Influenza Type B (PCR) Not Detected (NotDetected) M. pneumoniae (PCR) Not Detected (NotDetected) Parainfluenza 1 (PCR) Not Detected (NotDetected) Parainfluenza 2 (PCR) Not Detected (NotDetected) Parainfluenza 3 (PCR) Not Detected (NotDetected) Parainfluenza 4 (PCR) Not Detected (NotDetected) RSV (PCR) Not Detected (NotDetected) Entero/Rhino (PCR) Not Detected (NotDetected) Imaging Data Attestation: I personally reviewed and interpreted this imaging study as follows: My Impression: Chest x-ray viewed by me shows left-sided infiltrate. Radiologist's Impression: Chest X-Ray 08/26/23 17:22 XR chest 1V portable CLINICAL HISTORY: Sepsis TECHNIQUE: Single frontal radiograph of the chest was obtained. Comparison: None available at the time of this dictation. FINDINGS: Orthopedic hardware is seen overlying rib fractures. The cardiomediastinal silhouette is normal. Left retrocardiac opacity is seen. No evidence of pleural effusion or pneumothorax. IMPRESSION: Left retrocardiac opacity. which may represent atelectasis, pneumonia, and/or aspiration. ACT 112: Negative or not required by law. Electronically signed by: Brando Yuen M.D. 08/26/2023 5:[address] 08/26/23 17:22 Exam(s): CT HEAD Without Contrast EXAM: CT Head Without Intravenous Contrast CLINICAL HISTORY: Reason for exam: ams. TECHNIQUE: Axial computed tomography images of the head/brain without intravenous contrast. CTDI is 38.74 mGy and DLP is 156.1 mGy-cm. Automated exposure control was utilized for the study. A dose lowering technique was utilized adhering to the principles of ALARA. COMPARISON: None FINDINGS: Brain: No acute infarct or hemorrhage identified. No extra-axial fluid collection. No mass effect or midline shift. Scattered areas of hypoattenuation in the supratentorial white matter likely represent chronic small vessel ischemic changes. Ventricles and sulci: Prominence of the ventricles and sulci is likely secondary to cerebral volume loss. Bones: Normal. No bony lesion or acute fracture. Subcutaneous tissues: Normal. Sinuses: Moderate mucosal thickening in the left sphenoid sinus. Mastoid air cells: Normal. Orbits: Bilateral lens implants. Other: Atherosclerotic calcifications in the intracranial vasculature. IMPRESSION: 1. No acute intracranial abnormality. 2. Chronic small vessel ischemic changes and cerebral volume loss. Electronically signed by: Serafin Tanner M.D. 08/26/23 18:[address] 08/26/23 17:48 Exam(s): CT CHEST Without Contrast EXAM: CT Chest Without Intravenous Contrast CLINICAL HISTORY: Reason for exam: ro empyema. TECHNIQUE: Axial computed tomography images of the chest without intravenous contrast. CTDI is 38.74 mGy and DLP is 624.41 mGy-cm. Automated exposure control was utilized for the study. A dose lowering technique was utilized adhering to the principles of ALARA. COMPARISON: Same day chest radiograph FINDINGS: Lungs: Patchy consolidations and nodules/masses throughout the lungs. The largest nodule/mass or adjacent nodules/masses is located in the left upper lobe, measuring 4.6 x 4.0 x 4.7 cm. Findings are concerning for neoplasm/metastases and pneumonia. Pleural space: Unremarkable. No pneumothorax. No significant effusion. Heart: Coronary artery and aortic valve calcifications. No cardiomegaly. No significant pericardial effusion. Bones/joints: Mild degenerative changes of the spine. Old bilateral rib fracture deformities with plate and screw fixations of some of the ribs. No dislocation. Soft tissues: Unremarkable. Vasculature: Atherosclerotic changes in the aorta. No aortic aneurysm. Lymph nodes: Unremarkable. No enlarged lymph nodes. Spleen: Calcified granuloma in the spleen. Stomach and bowel: Dilated bowel, probably colon, partially visualized in the upper abdomen and incompletely evaluated on this exam. IMPRESSION: Patchy consolidations and nodules/masses throughout the lungs. The largest nodule/mass or adjacent nodules/masses is located in the left upper lobe, measuring 4.6 x 4.0 x 4.7 cm. Findings are concerning for neoplasm/metastases and pneumonia. No empyema. Electronically signed by: Serafin Tanner M.D. 08/26/23 18:32 PM ECG Data Attestation: I personally reviewed and interpreted this ECG as follows: Indication: + SOB/dyspnea Rate (beats per minute): 85 Rhythm: + normal sinus ECG Intervals/blocks: + Normal QRS, + Normal VA and + Normal QT-c ECG ST segments: + Normal ST segments [facility] Narrative 1715: Received a call from EMS, I instructed them to start IV fluids on the patient's given his tachycardia and hypoxia 1721: The patient was evaluated in room A1. A complete history and physical exam was performed Cardiac monitoring: An order was placed for continuous cardiac monitoring. The monitor shows a rate of 100 with sinus tachycardia rhythm interpreted by me Patient's blood pressure is improving with IV fluids that was started by EMS. Patient was quickly transitioned from CPAP from EMS to BiPAP. External medical records from the [facility] and [facility] were reviewed. According to documentation from [facility], patient is a 73-year-old male with past medical history notable for ethanol dependence, COPD, A-fib, CKD stage III, and chronic lower back pain with opioid dependence. It was thought that the patient was having a COPD exacerbation in the emergency department and the patient was sent for a CT of his abdomen there, at [facility] the patient sees and they thought the patient had a seizure secondary to alcohol withdrawal. The patient was intubated for airway protection. The patient was started on Zosyn while he was intubated because they thought he had a left bronchopneumonia and sepsis. The patient was extubated on August 09, 2023. 1735: Chest x-ray viewed by me shows left-sided infiltrate. ABG on BiPAP shows a arterial pH of 7.435 pCO2 34.9 pO2 135 bicarb 24 oxygen saturation 99%. Patient will be continued on BiPAP. Zosyn and vancomycin will be ordered for the patient. 30 cc/kg normal saline will be ordered for the patient. 1744: Blood pressure is improving with IV fluids and patient is tolerating BiPAP well. Discussed the case with Dr. Randall regarding the patient and he states to obtain a CT of the chest because he afraid that the patient might be developing an MPM on his chest x-ray. 183: Vital signs stable on BiPAP. Labs show white blood cell count of 17.19. Hemoglobin 10.4 neutrophil count 15.06. Creatinine 2.43. Lactic acid 2.7. High-sensitivity troponin 79.5. Discussed case with Dr. Randall ICU and both he and I feel that as the patient's blood pressure has improved with IV fluids and he is tolerating BiPAP well the patient does not need ICU at this time and he can be admitted to the floor. [facility] hospitalist team Dr. Joseph will be contacted for admission. Impression & Plan Pneumonia, Hypoxia, Sepsis Discharge Plan Visit Data Chief Complaint: Respiratory Distress Stated Complaint: RESPIRATORY FAILURE ED Provider: Juan Carrion Discharge Problem: Pneumonia, Hypoxia, Sepsis Patient Disposition: Admitted As Inpatient Forms Stand Alone Forms: [facility] Prescriptions Prescriptions: No Action acetaminophen [Tylenol] 325 mg Tablet 650 mg PO Q4H PRN (Reason: Pain (Scale Score 1-3)) ipratropium-albuterol 0.5 mg-3 mg(2.5 mg base)/3 mL Solution For Nebulization 3 ml INHALATION Q4H tizanidine 2 mg Tablet 2 mg PO TID PRN (Reason: MUSCLE SPASMS) amiodarone 200 mg Tablet 400 mg PO BID Rx Instructions: START 08/26/23 FOR 14 DAYS, STOP 09/09/23. amiodarone 200 mg Tablet 200 mg PO Q12H Rx Instructions: START 09/09/23, STOP 09/23/23 amiodarone 200 mg Tablet 200 mg PO DAILY Rx Instructions: START 09/24/22, THEN CONTINUE. ondansetron HCl [Zofran] 4 mg Tablet 4 mg PO Q4H PRN (Reason: NAUSEA/VOMITING) prednisone 20 mg Tablet 40 mg PO DAILY Rx Instructions: START 08/27/23 FOR 4 DAYS, STOP 08/31/23. sennosides-docusate sodium [Senokot-S] 8.6-50 mg Tablet 1 tab-cap PO QDL PRN (Reason: Constipation) dextrose [Insta-Glucose] 40 % Gel 1 ea PO DIRECTED PRN (Reason: Hypoglycemia) tramadol 50 mg Tablet 100 mg PO Q6H PRN (Reason: Pain (Scale Score 7-10)) Rx Instructions: LOWER BACK PAIN tramadol 50 mg Tablet 50 mg PO Q6H PRN (Reason: Pain (Scale Score 4-6)) Rx Instructions: LOWER BACK PAIN nortriptyline 25 mg Capsule 50 mg PO DAILY magnesium hydroxide [Milk of Magnesia] 400 mg/5 mL Suspension 30 ml PO DAILY PRN (Reason: Constipation) bisacodyl 10 mg Suppository 10 mg VA DAILY PRN (Reason: Constipation) pantoprazole 40 mg Tablet,Delayed Release (Dr/Ec) 40 mg PO DAILYBB Fleet Enema 19-7 gram/118 mL Enema 118 ml VA DAILY PRN (Reason: Constipation) docusate sodium 100 mg Capsule 100 mg PO BID hydroxychloroquine 200 mg Tablet 200 mg PO Q12H multivitamin with minerals Tablet 1 tab PO DAILY polyethylene glycol 3350 [Miralax] 17 gram/dose Powder 17 g PO QDL PRN (Reason: Constipation) albuterol sulfate 90 mcg/actuation Hfa Aerosol Inhaler 1 puff INHALATION Q6H PRN (Reason: Wheezing) Rx Instructions: CFC FREE metoprolol tartrate 25 mg Tablet 25 mg PO Q12H zinc sulfate 50 mg zinc (220 mg) Capsule 50 mg PO DAILY cholecalciferol (vitamin D3) [Vitamin D3] 50 mcg (2,000 unit) Capsule 50 mcg PO DAILY Eliquis 5 mg Tablet 5 mg PO Q12H Incruse Ellipta 62.5 mcg/actuation Blister With Device 1 inh INHALATION DAILY Referrals Referrals: Marion Jones Sa, MD [Primary Care Provider] - Discharge Problem: Pneumonia Qualifiers: Pneumonia type: due to unspecified organism Laterality: left Lung location: u nspecified part of lung Qualified Code(s): J18.9 - Pneumonia, unspecified organism Sepsis Qualifiers: Sepsis type: sepsis due to unspecified organism Sepsis acute organ dysfunction status: with acute organ dysfunction Acute respiratory failure type: with hypoxia Severe sepsis shock status: unspecified
[2023-08-26 21:32] LABS: Base Excess ABG -0.8 mEq/L (-9-1.8); HCO3 ABG 24 mmol/L (19-24); Oxygen Saturation ABG 98.3 % (90-95); PCO2 ABG 37 mmHg (35-46); PO2 ABG 124 mmHg (80-95); pH ABG 7.41 (7.35-7.45)
[2023-08-26 21:36] LABS: Appearance Urine Cloudy (Clear); Bilirubin Urine 1+ (Negative); Blood Urine 3+ (Negative); Color Urine Yellow; Glucose Urine UA Negative (Negative); Ketones Urine Negative (Negative); Leukocyte Esterase Urine Trace (Negative); Nitrite Urine Negative (Negative); Protein Urine 3+ (Negative); Specific Gravity Urine >= 1.030 (1.000-1.030); Urobilinogen Urine Negative (Negative); pH Urine 5.5 (4.5-7.5)
[2023-08-26 21:39] LABS: Allen Test Pos (Pos)
[2023-08-26] MEDS ORDERED: GLUCOSE 40% GEL 15 GM TUBE PO PRN (23:04)
[2023-08-26] MEDS ORDERED: POLYETHYLENE (MIRALAX) 17 GM PACK PO PRN (23:04)
[2023-08-26] MEDS ORDERED: tiZANidine HCL 4 MG TABLET PO PRN (23:04)
[2023-08-26] MEDS ORDERED: DOCUSATE SODIUM/SENNA 50/8.6MG TAB PO PRN (23:04)
[2023-08-26] MEDS ORDERED: SOD PHOSPHATE/SOD BIPHOSPHATE ENEMA 132 ML BTL PR PRN (23:04)
[2023-08-26] MEDS ORDERED: NITROGLYCERIN SL 0.4 MG/TAB TAB SL PRN (23:04)
[2023-08-26] MEDS ORDERED: MAGNESIUM HYDROXIDE SUSP 30 ML UDC PO PRN (23:04)
[2023-08-26] MEDS ORDERED: traMADol HCL 50 MG TABLET PO PRN ×2 (23:04)
[2023-08-27 01:32] LABS: Base Excess ABG -0.7 mEq/L (-9-1.8); HCO3 ABG 23 mmol/L (19-24); Oxygen Saturation ABG 96.2 % (90-95); PCO2 ABG 36 mmHg (35-46); PO2 ABG 81 mmHg (80-95); pH ABG 7.42 (7.35-7.45)
[2023-08-27 01:33] LABS: Allen Test Pos (Pos)
[2023-08-27] MEDS: DOCUSATE SODIUM 100 MG CAP PO SCH ×4 (01:34→20:00)
[2023-08-27] MEDS: AMIODARONE 200 MG TAB PO SCH ×4 (01:34→20:00)
[2023-08-27] MEDS: APIXABAN 5 MG TABLET PO SCH ×3 (02:48→19:59)
[2023-08-27] MEDS: METOPROLOL TARTRATE 25 MG TAB PO SCH ×3 (02:49→20:00)
[2023-08-27] MEDS: HYDROXYCHLOROQUINE SULFATE 200 MG TAB PO SCH ×3 (02:49→20:00)
[2023-08-27] MEDS: ALBUT/IPRATROP 3MG/0.5MG NEB 3 ML VIAL INH SCH ×6 (03:09→22:23)
[2023-08-27] MEDS: methylPREDNISolone 40 MG in SYRINGE 0 ML IV SCH ×3 (05:55→21:04)
[2023-08-27] MEDS: PANTOprazole 40 MG TAB PO SCH (05:55)
[2023-08-27 06:14] LABS: Base Excess ABG -1.6 mEq/L (-9-1.8); HCO3 ABG 22 mmol/L (19-24); Oxygen Saturation ABG 97.2 % (90-95); PCO2 ABG 32 mmHg (35-46); PO2 ABG 86 mmHg (80-95); pH ABG 7.44 (7.35-7.45)
[2023-08-27 06:19] LABS: Allen Test Pos (Pos)
[2023-08-27 06:20] LABS: Hematocrit (blood only) 27.4 % (42.0-52.0); Mean Corpuscular Hemoglobin 31.3 pg (25.0-34.0); Mean Corpuscular Hgb Conc 32.8 g/dL (32.0-36.0); Mean Corpuscular Volume 95.1 fL (80.0-100.0); Mean Platelet Volume 9.5 fL (9.4-12.4); Platelet Count 267 K/uL (130-400); RDW Coefficient of Variation 13.4 % (11.5-14.5); RDW Standard Deviation 46.9 fL (36.4-46.3); Red Blood Count 2.88 M/uL (4.70-6.10); White Blood Count 18.54 K/ul (4.8-10.8)
[2023-08-27 06:34] LABS: BUN Creatinine Ratio 24.7 (10-20); Calcium 8.5 mg/dl (8.6-10.3); Creatinine Clr Calc Pharmacy 21.7 ml/min; Est GFR (African American) 25.5 ml/min; Magnesium 1.7 mg/dl (1.7-2.4); Potassium 3.8 mmol/L (3.5-5.1)
[2023-08-27 06:42] LABS: Troponin I High Sensitivity 76.2 pg/ml (0-20)
[2023-08-27 07:04] LABS: Basophils # (auto) 0.03 K/uL (0.00-0.20); Basophils % (auto) 0.2 %; Immature Granulocytes # (auto) 0.14 K/uL (0.01-0.20); Immature Granulocytes % (auto) 0.8 %; Lymphocytes # (auto) 0.47 K/uL (1.20-3.40); Lymphocytes % (auto) 2.5 %; Monocytes # (auto) 0.47 K/uL (0.11-0.59); Monocytes % (auto) 2.5 %; Neutrophils # (auto) 17.43 K/uL (1.40-6.50)
[2023-08-27] MEDS ORDERED: LINEZOLID 600 MG/300 ML D5W IV SCH (08:00)
[2023-08-27] MEDS ORDERED: NORTRIPTYLINE HCL 25 MG CAP PO SCH (09:00)
[2023-08-27] MEDS: LINEZOLID 600 MG/300 ML BAG IV SCH ×2 (09:24→21:04)
[2023-08-27] MEDS: ZINC SULFATE 220 MG CAPSULE PO SCH ×2 (09:25→13:50)
[2023-08-27] MEDS: UMECLIDINIUM BROMIDE 62.5MCG/BLISTER 7 PUFFS/INHALER INH SCH (09:25)
[2023-08-27] MEDS: ACETAMINOPHEN 325 MG TAB PO PRN (09:28)
--- NOTE | 2023-08-27 11:55 | Pulmonary Consultation ---
Date of Consultation August 27, 2023 Assessment & Plan (1) Pneumonia: Laterality: left Lung location: unspecified part of lung Pneumonia type: due to unspecified organism Qualified Code(s): J18.9 - Pneumonia, unspecified organism (2) Abnormal CT scan, chest: (3) COPD (chronic obstructive pulmonary disease): Plan I reviewed the CT chest which is concerning for possible metastatic disease versus septic emboli. Aspiration pneumonia also in the differential. Agree with broad-spectrum antibiotics. Please follow blood cultures and echocardiogram results. If blood cultures and echocardiogram are negative for bacteremia or endocarditis, would strongly encourage a CT-guided biopsy of 1 of these peripheral base pleural lesions. Recommend obtaining CT abdomen pelvis as well to look for tumor potential primary malignant lesion. Thanks for the consult. Will follow. History of Present Illness Reason for Consultation: Abnormal CT chest Attending Physician: Jd Barahona MD History of Present Illness 74-year-old male with a history of alcohol dependence, alcohol withdrawal seizures, COPD, paroxysmal atrial fibrillation, CKD stage III and DVT who presented to the hospital from [facility] due to shortness of breath and altered mental status. He was recently discharged from [facility] due to aspiration pneumonia and seizures. He was actually intubated during his stay at [facility] and was extubated and discharged 08/26 to [facility] for rehab. In the ER he received Zosyn, fluids and BiPAP. History is limited from the patient as he is currently confused and lethargic. He currently has mitts on to prevent removing of lines nd interfering with medical care. He had a CT of his chest obtained yesterday which revealed bilateral round consolidations concerning for metastatic disease versus septic emboli. He also has interval increase in nodular opacities in consolidation concerning for pneumonia. Allergies Allergy/AdvReac Type Severity Reaction Status Date / Time bee venom protein (honey bee) Allergy Severe Anaphylaxis Verified 08/26/23 19:49 ibuprofen [From Motrin] AdvReac Mild Rash Verified 08/26/23 19:13 Home Medications Medication Instructions Recorded Confirmed Type acetaminophen 325 mg tablet 650 mg PO Q4H PRN Pain (Scale 08/26/23 08/26/23 History (Tylenol) Score 1-3) albuterol sulfate 90 mcg/actuation 1 puff inhalation Q6H PRN Wheezing 08/26/23 08/26/23 History aerosol inhaler amiodarone 200 mg tablet 200 mg PO DAILY 08/26/23 08/26/23 History amiodarone 200 mg tablet 200 mg PO Q12H 08/26/23 08/26/23 History amiodarone 200 mg tablet 400 mg PO BID 08/26/23 08/26/23 History apixaban 5 mg tablet (Eliquis) 5 mg PO Q12H 08/26/23 08/26/23 History bisacodyl 10 mg rectal suppository 10 mg UT DAILY PRN Constipation 08/26/23 08/26/23 History cholecalciferol (vitamin D3) 50 50 mcg PO DAILY 08/26/23 08/26/23 History mcg (2,000 unit) capsule (Vitamin D3) dextrose 40 % oral gel 1 ea PO DIRECTED PRN 08/26/23 08/26/23 History Hypoglycemia docusate sodium 100 mg capsule 100 mg PO BID 08/26/23 08/26/23 History hydroxychloroquine 200 mg tablet 200 mg PO Q12H 08/26/23 08/26/23 History ipratropium 0.5 mg-albuterol 3 mg 3 ml inhalation Q4H 08/26/23 08/26/23 History (2.5 mg base)/3 mL nebulization soln magnesium hydroxide 400 mg/5 mL 30 ml PO DAILY PRN Constipation 08/26/23 08/26/23 History oral suspension (Milk of Magnesia) metoprolol tartrate 25 mg tablet 25 mg PO Q12H 08/26/23 08/26/23 History multivitamin with minerals 1 tab PO DAILY 08/26/23 08/26/23 History nortriptyline 25 mg capsule 50 mg PO DAILY 08/26/23 08/26/23 History ondansetron HCl 4 mg tablet 4 mg PO Q4H PRN NAUSEA/VOMITING 08/26/23 08/26/23 History pantoprazole 40 mg tablet,delayed 40 mg PO DAILYBB 08/26/23 08/26/23 History release polyethylene glycol 3350 17 17 g PO QDL PRN Constipation 08/26/23 08/26/23 History gram/dose oral powder (Miralax) prednisone 20 mg tablet 40 mg PO DAILY 08/26/23 08/26/23 History sennosides 8.6 mg-docusate sodium 1 tab-cap PO QDL PRN Constipation 08/26/23 08/26/23 History 50 mg tablet (Senokot-S) sodium phosphates 19 gram-7 118 ml UT DAILY PRN Constipation 08/26/23 08/26/23 History gram/118 mL enema (Fleet Enema) tizanidine 2 mg tablet 2 mg PO TID PRN MUSCLE SPASMS 08/26/23 08/26/23 History tramadol 50 mg tablet 50 mg PO Q6H PRN Pain (Scale Score 08/26/23 08/26/23 Hist ory 4-6) tramadol 50 mg tablet 100 mg PO Q6H PRN Pain (Scale 08/26/23 08/26/23 History Score 7-10) umeclidinium 62.5 mcg/actuation 1 inh inhalation DAILY 08/26/23 08/26/23 History blister powder for inhalation (Incruse Ellipta) zinc sulfate 50 mg zinc (220 mg) 50 mg PO DAILY 08/26/23 08/26/23 History capsule Patient History Medical History (Updated 08/27/23 @ 11:57 by Neal Randall MD) Abnormal CT scan, chest CKD (chronic kidney disease), stage IV Acute metabolic encephalopathy Severe protein-calorie malnutrition COPD (chronic obstructive pulmonary disease) Polymyalgia rheumatica Stress-induced cardiomyopathy SHEBA (acute kidney injury) Alcohol abuse Paroxysmal A-fib Aspiration pneumonia Social History Smoking Status: Former smoker Second Hand Exposure: No; Do You Dip or Chew Tobacco: No; Tobacco Cessation Education Requested by Patient: No Hx Alcohol Use: Yes Alcohol type: beer and hard liquor Hx Substance Use: No Preferred Language: Serbian Communication Ability: Impaired Relocation Counselor Required: No Beliefs That Will Affect Care: None Current Living Situation: Alone Current Living Situation Comment: Lives alone at [facility], [facility] Other Information That Helps Us Care for You: No Feels Safe at Home: Hesitant to Answer Safety Concerns: Feels Safe At This Time Assistive Devices: Cane Review of Systems Review of Systems: Unobtainable due to cognitive status Physical Exam Physical Exam: Constitutional: Patient appears to be of their stated age. Patient is in no apparent distress. Patient is well-developed. Eyes: Pupils are equal round and reactive to light. Conjunctivae are normal. Anicteric sclera. Ears nose, mouth and throat: Mallampati class 2. Normal posterior oropharynx. Uvula is midline. Neck: Trachea is midline. Visual inspection is normal. Respiratory: Bilateral wheezes and rales. Cardiovascular: Regular rate and rhythm. No murmurs. No edema. Gastrointestinal: Normal bowel sounds, soft, nontender and nondistended. No hepatosplenomegaly noted. Musculoskeletal: No cyanosis. Patient is able to move all extremities. Strength is 5 out of 5 in the upper and lower extremities. Skin: No rashes, warm dry and intact. Neurologic: No obvious focal neurological deficits seen. Psychiatric: Alert and oriented x3 with a euthymic affect. Results & Data Results & Data Vital Signs (Past 12 Hours) Vital Signs Temp Pulse Resp BP Pulse Ox O2 Del Method O2 Flow Rate 08/27/23 11:24 36.5 C 88 21 119/75 95 Nasal Cannula 4 08/27/23 07:36 36.5 C 86 21 143/75 H 98 Nasal Cannula 2 08/27/23 07:22 90 18 95 Nasal Cannula 4 08/27/23 03:40 37.0 C 92 H 22 139/78 92 Nasal Cannula 3.5 08/27/23 03:09 85 18 95 Nasal Cannula 4 PG Care Time/CCT Total # of Minutes Spent Total Time Spent with Patient: Total time spent is greater than 50% in coordination of care (as documented) at patient's floor/unit and/or counseling patient: Coding Level of Care Code 99340 INT INP/OBS CARE 2MIN Diagnoses Pneumonia J18.9 Laterality: left Lung location: unspecified part of lung Pneumonia type: due to unspecified organism Abnormal CT scan, chest R93.89 COPD (chronic obstructive pulmonary disease) J44.9
--- NOTE | 2023-08-27 12:01 | Fluoroscopy Report ---
FL video swallow CLINICAL HISTORY: 73 years-old Male with r/o aspiration. Acute dysphasia TECHNIQUE: Video fluoroscopic evaluation of swallowing was performed in the AP and lateral projection s by the speech pathology staff. The patient is fed varying consistencies of barium. FLUOROSCOPY TIME: 2.02 minutes. 3616 images. 11.2 mGy COMPARISON STUDY: Chest CT 08/26/2023 FINDINGS: Mildly decreased hyoid excursion and epiglottic deflection. Laryngeal penetration with thin liquid barium. Additional laryngeal penetration noted with liquid wash following the cracker consist ency. No aspiration identified. Mild esophageal dysmotility. IMPRESSION: 1. No aspiration identified. 2. Please see the speech pathologist report for detailed findings and recommendations. ACT 112: Negative or not required by law. Electronically signed by: Juan Carlos Rai M.D. 08/27/2023 12:00 PM
--- NOTE | 2023-08-27 12:29 | Electrocardiogram Report ---
Test Reason : Blood Pressure : / mmHG Vent. Rate : 085 BPM Atrial Rate : 085 BPM P-R Int : 140 ms QRS Dur : 100 ms QT Int : 414 ms P-R-T Axes : 084 -30 -32 degrees QTc Int : 492 ms Normal sinus rhythm Left axis deviation Minimal voltage criteria for LVH, may be normal variant ( ) Abnormal ECG No previous ECGs available Confirmed by Ramsey Babin ([id number]) on 08/27/2023 12:29:12 PM Referred By: REFERRED SELF Confirmed By:Ramsey Babin
--- NOTE | 2023-08-27 13:35 | XCELERA ---
[id number]
--- NOTE | 2023-08-27 16:05 | Hospitalist Progress Note ---
Date of Service August 27, 2023 Assessment & Plan (1) Acute hypoxic respiratory failure: Plan: 2nd to pneumonia - aspiration vs gram negative. Cont zosyn; can stop zyvox as MRSA is negative. No prior h/o MRSA by history. Appreciate pulm consultation. CT chest findings noted. Cont steroids, nebs, etc. (2) Abnormal CT scan, chest: Plan: b/l pneumonia. nodules also present concerning for possible underlying malignancy. Appreciate pulm consultation and recs. Cont zosyn. (3) Acute metabolic encephalopathy: Plan: Probably multifactorial - hospital psychosis, sepsis, pneumonia; can't rule out nutritional deficiencies (Wernicke's, etc). Supportive care. Hold TCA, sedatives, etc. Check B12, B1 in am. (4) Sepsis: Plan: 2nd to pneumonia. Follow blood cx's - thus far neg. (5) Pneumonia: Plan: Cont zosyn. Stop zyvox. Doubt atypicals - defer on coverage for such for now. Aspiration vs gram negative (although he passed his video swallow today). (6) SHEBA (acute kidney injury): Plan: Baseline renal function? Daughters not aware of any CKD. He appears volume contracted - resume IV fluids. (7) Elevated troponin: Plan: Peak HS trop 79. Likely myocardial demand ischemia. Doubt ACS. (8) COPD (chronic obstructive pulmonary disease): Plan: No wheezing on exam today but is on steroid therapy. Will reduce to BID dosing of solumedrol. Cont nebs. Cont inhalers. (9) Alcohol abuse: Plan: Long standing history of such. Went thru withdrawal at [facility]. Had etoh withdrawal seizures by report. Check B1 level. Should be on MVI/thiamine/folate supplementation. no evidence of any ongoing withdrawal. (10) Paroxysmal A-fib: Plan: Had such while at [facility]. Cont amiodarone to maintain NSR. Cont Eliquis 5mg BID (has SHEBA, but weight is >60kg and age is 73). (11) Polymyalgia rheumatica: Plan: Sees rheum for such. On chronic steroids - basal dose uncertain. Await records from [place]. (12) Severe protein-calorie malnutrition: Plan: Patient cachectic, etc. Add boost, MVI, etc. (13) Rheumatoid arthritis: Plan: On prednisone + plaquenil chronically for such. No evidence of RA flare. (14) Unilateral vocal cord paralysis: Plan: Due to intubation/ventilation years ago at [facility] following a logging accident. (15) Anemia: Plan: Check nutritional studies. Check cbc am. (16) DVT prophylaxis: Plan: Eliquis Plan will need PT/OT daughters extensively updated at bedside await records from [facility] Admission and Anticipated Discharge Date Admission Date: August 26, 2023 Subjective patient initially sleeping upon arrival he would wake up but was VERY hard to understand; voice is soft/hoarse and low- pitched his 2 daughters were present they recount many of the details of his prolonged stay at [facility] they report that upon d/c from [place] to [facility] he was generally unwell apparently he was initially admitted to [facility] in [facility] with an SBO and was intubated in [facility] due to suspected aspiration he did not require surgery for the SBO Tx to [place] was in the ICU for prolonged period of time had etoh withdrawal seizures after extubation he had a few good days in the ICU, was transferred to the floor, then got ill once again he apparently was intubated after a logging accident 10+ years ago was hospitalized at [place] had unilateral vocal cord paralysis as a result of this hospital stay/intubation was working part-time up until recently etoh use - previously beer + liquor, now just the latter; apparently "sips the liquor in small amounts all day" daughters state he has always been thin and did lose weight while at [place] daughter confirms dx's of PMR + RA - on plaquenil and prednisone chronically for such up until his hospitalization at [place] he hadn't been having any swallowing issues he had an MRI brain at [place] - daughters were told it was normal finally, daughters confirm he had PAF at [place]; this was new dx for him 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 even before this recent prolonged hospitalization Review of Systems Review of Systems: gen - denies pain in any location unable to obtain full ROS due to confusion Physical Exam Physical Exam: gen - very thin, difficult to understand his speech, temporal muscle wasting of his face; cachectic in appearance, thin HENT - oral cavity with white substance from recent video swallow; MM dry; hoarse, low-pitched voice neck - no JVD heart - RRR, s1 s2, no murmur lungs - b/l crackles, no wheeze, no increased work of breathing abd - soft NT ND BS+ ext - no edema, pulses 2+ b/l neuro - L foot drop (chronic per daughters); no facial droop; strength 5/5 x 4 exts; speech difficult to understand Results & Data Results & Data Vital Signs (Past 12 Hours) Vital Signs Temp Pulse Resp BP Pulse Ox O2 Del Method O2 Flow Rate 08/27/23 15:27 36.6 C 78 22 168/93 H 93 Nasal Cannula 4 08/27/23 11:24 36.5 C 88 21 119/75 95 Nasal Cannula 4 08/27/23 08:00 Nasal Cannula 4 08/27/23 07:36 36.5 C 86 21 143/75 H 98 Nasal Cannula 4 08/27/23 07:22 90 18 95 Nasal Cannula 4 Laboratory Results Laboratory Results - last 48 hr 08/26/23 08/26/23 08/26/23 17:27 17:38 17:47 WBC 17.19 H RBC 3.31 L Hgb 10.4 L POC Hgb 10.9 L 11.6 L Hct 31.4 L POC Hct 32 L 34 L MCV 94.9 MCH 31.4 MCHC 33.1 RDW Std Deviation 46.5 H RDW Coeff of Jesse 13.4 Plt Count 373 MPV 9.7 Immature Gran % (Auto) 1.2 Neut % (Auto) 87.6 Lymph % (Auto) 5.1 Teller % (Auto) 5.9 Eos % (Auto) 0.0 Baso % (Auto) 0.2 Neut # (Auto) 15.06 H Lymph # (Auto) 0.88 L Teller # (Auto) 1.01 H Eos # (Auto) 0.00 Baso # (Auto) 0.04 Immature Gran # (Auto) 0.20 PT 14.3 H INR 1.3 H APTT 27 PTT Ratio 1.0 POC pH 7.44 POC pCO2 35 POC pO2 135 H POC HCO3 23 POC Total CO2 24 26 POC Base Excess -1.0 ABG pH ABG pCO2 ABG pO2 ABG HCO3 POC ABG O2 Sat 99.0 H ABG O2 Saturation ABG Base Excess Mikey Test Oxygen Given POC Sodium 140 140 Sodium 141 POC Potassium 4.1 4.4 Potassium 3.9 POC Chloride 100 L Chloride 102 Carbon Dioxide 23 Anion Gap 16 H POC Anion Gap 19.0 POC BUN 50 H BUN 57 H Creatinine 2.43 H POC Creatinine 2.7 H Est Cr Clr Drug Dosing Not Reportable Est GFR ( Amer) 29.7 Est GFR (Non-Af Amer) 25.6 BUN/Creatinine Ratio 23.5 H Glucose 137 H POC Glucose (other) 134 H Lactate 2.7 H* Calcium 9.4 POC Ioniz Calcium José Antonio 1.14 Magnesium 2.0 Total Bilirubin 0.6 Direct Bilirubin 0.2 AST 25 ALT 37 Alkaline Phosphatase 281 H Troponin I High Sens 79.5 H* Total Protein 6.9 Albumin 3.7 Procalcitonin 0.34 Urine Color Urine Appearance Urine pH Ur Specific Langeloth Urine Protein Urine Glucose (UA) Urine Ketones Urine Blood Urine Nitrite Urine Bilirubin Urine Urobilinogen Ur Leukocyte Esterase Urine WBC (Auto) Urine RBC (Auto) U Hyaline Cast (Auto) U Epithel Cells (Auto) Urine Bacteria (Auto) Ur Renal Epithelial Cell Urine Crystals Calcium Oxalate Crystal Uric Acid Crystals Triple Phos Crystals Other Crystals Amorphous Sediment Granular Casts Waxy Casts RBC Casts WBC Casts Pathogenic Casts Other Casts Urine Mucus Urine Other Urine Trichomonas Urine Yeast Urine Sperm Ur Oval Fat Bodies Ur Culture Indicated? Nasal Screen MRSA (PCR) Adenovirus (PCR) B. pertussis DNA (PCR) B.parapertussis DNA PCR C. pneumoniae DNA (PCR) Coronavirus OC43 (PCR) Coronavirus HKU1 (PCR) Coronavirus 229E (PCR) SARS-CoV-2 (PCR) Coronavirus NL63 (PCR) Human Metapneumovir PCR Influenza Type A (PCR) Influenza Type B (PCR) M. pneumoniae (PCR) Parainfluenza 1 (PCR) Parainfluenza 2 (PCR) Parainfluenza 3 (PCR) Parainfluenza 4 (PCR) RSV (PCR) Entero/Rhino (PCR) 08/26/23 08/26/23 08/26/23 18:26 19:39 19:40 WBC RBC Hgb POC Hgb Hct POC Hct MCV MCH MCHC RDW Std Deviation RDW Coeff of Jesse Plt Count MPV Immature Gran % (Auto) Neut % (Auto) Lymph % (Auto) Teller % (Auto) Eos % (Auto) Baso % (Auto) Neut # (Auto) Lymph # (Auto) Teller # (Auto) Eos # (Auto) Baso # (Auto) Immature Gran # (Auto) PT INR APTT PTT Ratio POC pH POC pCO2 POC pO2 POC HCO3 POC Total CO2 POC Base Excess ABG pH ABG pCO2 ABG pO2 ABG HCO3 POC ABG O2 Sat ABG O2 Saturation ABG Base Excess Mikey Test Oxygen Given POC Sodium Sodium POC Potassium Potassium POC Chloride Chloride Carbon Dioxide Anion Gap POC Anion Gap POC BUN BUN Creatinine POC Creatinine Est Cr Clr Drug Dosing Est GFR ( Amer) Est GFR (Non-Af Amer) BUN/Creatinine Ratio Glucose POC Glucose (other) Lactate 2.9 H* Calcium POC Ioniz Calcium José Antonio Magnesium Total Bilirubin Direct Bilirubin AST ALT Alkaline Phosphatase Troponin I High Sens 75.8 H* Total Protein Albumin Procalcitonin Urine Color Urine Appearance Urine pH Ur Specific [place] Urine Protein Urine Glucose (UA) Urine Ketones Urine Blood Urine Nitrite Urine Bilirubin Urine Urobilinogen Ur Leukocyte Esterase Urine WBC (Auto) Urine RBC (Auto) U Hyaline Cast (Auto) U Epithel Cells (Auto) Urine Bacteria (Auto) Ur Renal Epithelial Cell Urine Crystals Calcium Oxalate Crystal Uric Acid Crystals Triple Phos Crystals Other Crystals Amorphous Sediment Granular Casts Waxy Casts RBC Casts WBC Casts Pathogenic Casts Other Casts Urine Mucus Urine Other Urine Trichomonas Urine Yeast Urine Sperm Ur Oval Fat Bodies Ur Culture Indicated? Nasal Screen MRSA (PCR) Adenovirus (PCR) Not Detected B. pertussis DNA (PCR) Not Detected B.parapertussis DNA PCR Not Detected C. pneumoniae DNA (PCR) Not Detected Coronavirus OC43 (PCR) Not Detected Coronavirus HKU1 (PCR) Not Detected Coronavirus 229E (PCR) Not Detected SARS-CoV-2 (PCR) Not Detected Coronavirus NL63 (PCR) Not Detected Human Metapneumovir PCR Not Detected Influenza Type A (PCR) Not Detected Influenza Type B (PCR) Not Detected M. pneumoniae (PCR) Not Detected Parainfluenza 1 (PCR) Not Detected Parainfluenza 2 (PCR) Not Detected Parainfluenza 3 (PCR) Not Detected Parainfluenza 4 (PCR) Not Detected RSV (PCR) Not Detected Entero/Rhino (PCR) Not Detected 08/26/23 08/26/23 08/27/23 21:22 21:24 00:07 WBC RBC Hgb POC Hgb Hct POC Hct MCV MCH MCHC RDW Std Deviation RDW Coeff of Jesse Plt Count MPV Immature Gran % (Auto) Neut % (Auto) Lymph % (Auto) Teller % (Auto) Eos % (Auto) Baso % (Auto) Neut # (Auto) Lymph # (Auto) Teller # (Auto) Eos # (Auto) Baso # (Auto) Immature Gran # (Auto) PT INR APTT PTT Ratio POC pH POC pCO2 POC pO2 POC HCO3 POC Total CO2 POC Base Excess ABG pH 7.41 ABG pCO2 37 ABG pO2 124 H ABG HCO3 24 POC ABG O2 Sat ABG O2 Saturation 98.3 H ABG Base Excess -0.8 Mikey Test Pos Oxygen Given 55% POC Sodium Sodium POC Potassium Potassium POC Chloride Chloride Carbon Dioxide Anion Gap POC Anion Gap POC BUN BUN Creatinine POC Creatinine Est Cr Clr Drug Dosing Est GFR ( Amer) Est GFR (Non-Af Amer) BUN/Creatinine Ratio Glucose POC Glucose (other) Lactate 1.1 Calcium POC Ioniz Calcium José Antonio Magnesium Total Bilirubin Direct Bilirubin AST ALT Alkaline Phosphatase Troponin I High Sens Total Protein Albumin Procalcitonin Urine Color Yellow Urine Appearance Cloudy A Urine pH 5.5 Ur Specific Langeloth >= 1.030 Urine Protein 3+ H Urine Glucose (UA) Negative Urine Ketones Negative Urine Blood 3+ H Urine Nitrite Negative Urine Bilirubin 1+ H Urine Urobilinogen Negative Ur Leukocyte Esterase Trace H Urine WBC (Auto) Cancelled Urine RBC (Auto) Cancelled U Hyaline Cast (Auto) Cancelled U Epithel Cells (Auto) Cancelled Urine Bacteria (Auto) Cancelled Ur Renal Epithelial Cell Cancelled Urine Crystals Cancelled Calcium Oxalate Crystal Cancelled Uric Acid Crystals Cancelled Triple Phos Crystals Cancelled Other Crystals Cancelled Amorphous Sediment Cancelled Granular Casts Cancelled Waxy Casts Cancelled RBC Casts Cancelled WBC Casts Cancelled Pathogenic Casts Cancelled Other Casts Cancelled Urine Mucus Cancelled Urine Other Cancelled Urine Trichomonas Cancelled Urine Yeast Cancelled Urine Sperm Cancelled Ur Oval Fat Bodies Cancelled Ur Culture Indicated? Cancelled Nasal Screen MRSA (PCR) Negative Adenovirus (PCR) B. pertussis DNA (PCR) B.parapertussis DNA PCR C. pneumoniae DNA (PCR) Coronavirus OC43 (PCR) Coronavirus HKU1 (PCR) Coronavirus 229E (PCR) SARS-CoV-2 (PCR) Coronavirus NL63 (PCR) Human Metapneumovir PCR Influenza Type A (PCR) Influenza Type B (PCR) M. pneumoniae (PCR) Parainfluenza 1 (PCR) Parainfluenza 2 (PCR) Parainfluenza 3 (PCR) Parainfluenza 4 (PCR) RSV (PCR) Entero/Rhino (PCR) 08/27/23 08/27/23 08/27/23 01:27 06:04 06:08 WBC 18.54 H RBC 2.88 L Hgb 9.0 L POC Hgb Hct 27.4 L POC Hct MCV 95.1 MCH 31.3 MCHC 32.8 RDW Std Deviation 46.9 H RDW Coeff of Jesse 13.4 Plt Count 267 MPV 9.5 Immature Gran % (Auto) 0.8 Neut % (Auto) 94.0 Lymph % (Auto) 2.5 Teller % (Auto) 2.5 Eos % (Auto) 0.0 Baso % (Auto) 0.2 Neut # (Auto) 17.43 H Lymph # (Auto) 0.47 L Teller # (Auto) 0.47 Eos # (Auto) 0.00 Baso # (Auto) 0.03 Immature Gran # (Auto) 0.14 PT INR APTT PTT Ratio POC pH POC pCO2 POC pO2 POC HCO3 POC Total CO2 POC Base Excess ABG pH 7.42 7.44 ABG pCO2 36 32 L ABG pO2 81 86 ABG HCO3 23 22 POC ABG O2 Sat ABG O2 Saturation 96.2 H 97.2 H ABG Base Excess -0.7 -1.6 Mikey Test Pos Pos Oxygen Given 4L 5L POC Sodium Sodium 142 POC Potassium Potassium 3.8 POC Chloride Chloride 108 H Carbon Dioxide 22 Anion Gap 12 H POC Anion Gap POC BUN BUN 68 H Creatinine 2.75 H D POC Creatinine Est Cr Clr Drug Dosing 21.7 Est GFR ( Amer) 25.5 Est GFR (Non-Af Amer) 22.0 BUN/Creatinine Ratio 24.7 H Glucose 145 H POC Glucose (other) Lactate Calcium 8.5 L POC Ioniz Calcium José Antonio Magnesium 1.7 Total Bilirubin Direct Bilirubin AST ALT Alkaline Phosphatase Troponin I High Sens 76.2 H* Total Protein Albumin Procalcitonin Urine Color Urine Appearance Urine pH Ur Specific Langel[place] Urine Protein Urine Glucose (UA) Urine Ketones Urine Blood Urine Nitrite Urine Bilirubin Urine Urobilinogen Ur Leukocyte Esterase Urine WBC (Auto) Urine RBC (Auto) U Hyaline Cast (Auto) U Epithel Cells (Auto) Urine Bacteria (Auto) Ur Renal Epithelial Cell Urine Crystals Calcium Oxalate Crystal Uric Acid Crystals Triple Phos Crystals Other Crystals Amorphous Sediment Granular Casts Waxy Casts RBC Casts WBC Casts Pathogenic Casts Other Casts Urine Mucus Urine Other Urine Trichomonas Urine Yeast Urine Sperm Ur Oval Fat Bodies Ur Culture Indicated? Nasal Screen MRSA (PCR) Adenovirus (PCR) B. pertussis DNA (PCR) B.parapertussis DNA PCR C. pneumoniae DNA (PCR) Coronavirus OC43 (PCR) Coronavirus HKU1 (PCR) Coronavirus 229E (PCR) SARS-CoV-2 (PCR) Coronavirus NL63 (PCR) Human Metapneumovir PCR Influenza Type A (PCR) Influenza Type B (PCR) M. pneumoniae (PCR) Parainfluenza 1 (PCR) Parainfluenza 2 (PCR) Parainfluenza 3 (PCR) Parainfluenza 4 (PCR) RSV (PCR) Entero/Rhino (PCR) PG Care Time/CCT Total # of Minutes Spent Total Time Spent with Patient: Total time spent is greater than 50% in coordination of care (as documented) at patient's floor/unit and/or counseling patient: Coding Level of Care Code 85370 SUB INP/OBS CARE 3/50MIN Diagnoses Acute hypoxic respiratory failure J96.[address] scan, chest R93.89 Acute metabolic encephalopathy G93.41 Sepsis A41.9 Acute respiratory failure type: with hypoxia Sepsis acute organ dysfunction status: with acute organ dysfunction Sepsis type: sepsis due to unspecified organism Severe sepsis shock status: unspecified Pneumonia J18.9 Laterality: left Lung location: unspecified part of lung Pneumonia type: due to unspecified organism SHEBA (acute kidney injury) N17.9 Elevated troponin R79.89 COPD (chronic obstructive pulmonary disease) J44.9 Alcohol abuse F10.10 Paroxysmal A-fib I48.0 Polymyalgia rheumatica M35.3 Severe protein-calorie malnutrition E43 Rheumatoid arthritis M06.9 Unilateral vocal cord paralysis J38.01 Anemia D64.9 DVT prophylaxis Z29.9 (4) Sepsis Acute respiratory failure type: with hypoxia Sepsis acute organ dysfunction status: with acute organ dysfunction Sepsis type: sepsis due to unspecified organism Severe sepsis shock status: unspecified (5) Pneumonia Laterality: left Lung location: unspecified part of lung Pneumonia type: due to unspecified organism Qualified Code(s): J18.9 - Pneumonia, unspecified organism
[2023-08-27] MEDS: LACTATED RINGER'S 1,000 ML IV SCH (17:03)
[2023-08-27] MEDS ORDERED: SODIUM CHLORIDE 0.65% NA SOLN 45 ML (OCEAN) ONE (17:27)
[2023-08-28] MEDS: ALBUT/IPRATROP 3MG/0.5MG NEB 3 ML VIAL INH SCH ×6 (03:14→22:28)
[2023-08-28] MEDS: PANTOprazole 40 MG TAB PO SCH (05:29)
[2023-08-28] MEDS: methylPREDNISolone 40 MG in SYRINGE 0 ML IV SCH ×2 (05:29→20:30)
[2023-08-28 07:36] LABS: Hematocrit (blood only) 29.4 % (42.0-52.0); Hemoglobin 9.3 g/dl (14.0-18.0); Mean Corpuscular Hemoglobin 30.9 pg (25.0-34.0); Mean Corpuscular Hgb Conc 31.6 g/dL (32.0-36.0); Mean Corpuscular Volume 97.7 fL (80.0-100.0); Mean Platelet Volume 9.3 fL (9.4-12.4); Platelet Count 252 K/uL (130-400); RDW Coefficient of Variation 13.6 % (11.5-14.5); RDW Standard Deviation 48.7 fL (36.4-46.3); Red Blood Count 3.01 M/uL (4.70-6.10); White Blood Count 14.95 K/ul (4.8-10.8)
[2023-08-28 07:53] LABS: BUN Creatinine Ratio 26.2 (10-20); Calcium 9.1 mg/dl (8.6-10.3); Creatinine Clr Calc Pharmacy 30.4 ml/min; Est GFR (African American) 37.1 ml/min; Magnesium 1.7 mg/dl (1.7-2.4); Potassium 3.4 mmol/L (3.5-5.1)
[2023-08-28] MEDS ORDERED: PIPER/TAZO 4.5g in D5W MINI-B 100 ML IV ONE (08:00)
[2023-08-28] MEDS: DOCUSATE SODIUM 100 MG CAP PO SCH ×2 (08:03→20:31)
[2023-08-28] MEDS: AMIODARONE 200 MG TAB PO SCH ×2 (08:04→20:28)
[2023-08-28] MEDS: APIXABAN 5 MG TABLET PO SCH ×2 (08:04→20:28)
[2023-08-28] MEDS: METOPROLOL TARTRATE 25 MG TAB PO SCH ×2 (08:05→20:29)
[2023-08-28] MEDS: HYDROXYCHLOROQUINE SULFATE 200 MG TAB PO SCH ×2 (08:05→20:29)
[2023-08-28] MEDS: UMECLIDINIUM BROMIDE 62.5MCG/BLISTER 7 PUFFS/INHALER INH SCH (08:05)
[2023-08-28 08:06] LABS: Basophils # (auto) 0.02 K/uL (0.00-0.20); Basophils % (auto) 0.1 %; Immature Granulocytes % (auto) 0.7 %; Lymphocytes # (auto) 0.34 K/uL (1.20-3.40); Lymphocytes % (auto) 2.3 %; Monocytes # (auto) 0.49 K/uL (0.11-0.59); Monocytes % (auto) 3.3 %; Neutrophils % (auto) 93.6 %; RBC Morphology Unremarkable
[2023-08-28] MEDS: ZINC SULFATE 220 MG CAPSULE PO SCH (08:06)
[2023-08-28 08:10] LABS: Ferritin 197.8 ng/ml (8-388)
[2023-08-28 08:16] LABS: Folate (Folic Acid),Ser orPlas > 22.30 ng/ml (>5.38)
[2023-08-28 08:17] LABS: Vitamin B12 851 pg/ml (180-914)
[2023-08-28] MEDS: CEROVITE ADV FORMULA TAB PO SCH (08:44)
[2023-08-28] MEDS: FOLIC ACID 1 MG TAB PO SCH (08:44)
[2023-08-28] MEDS: POTASSIUM CHLORIDE CRTAB 20 MEQ TABCR PO SCH ×2 (08:44→20:33)
[2023-08-28] MEDS: THIAMINE HCL 500 MG in SODIUM CHLORIDE 0.9% 50 ML IV SCH ×2 (08:54→17:15)
[2023-08-28] MEDS: LACTATED RINGER'S 1,000 ML IV SCH (10:13)
[2023-08-28] MEDS: PIPERACILLIN/TAZOBACTAM 4.5 GM in DEXTROSE 5% MINI-B 100 ML IV SCH ×2 (13:18→20:45)
[2023-08-29] MEDS: THIAMINE HCL 500 MG in SODIUM CHLORIDE 0.9% 50 ML IV SCH ×3 (01:10→16:50)
[2023-08-29] MEDS: ALBUT/IPRATROP 3MG/0.5MG NEB 3 ML VIAL INH SCH ×5 (03:09→19:44)
--- NOTE | 2023-08-29 04:13 | Hospitalist Progress Note ---
Date of Service August 28, 2023 Assessment & Plan (1) Acute hypoxic respiratory failure: Plan: 2nd to pneumonia - aspiration vs gram negative. Cont zosyn - day #3 of such. No prior h/o MRSA and MRSA TECHNICAL SOLUTION ARCHITECT swab neg thus MRSA coverage deferred. Appreciate pulm consultation. CT chest findings noted. Cont steroids, nebs, etc. (2) Abnormal CT scan, chest: Plan: b/l pneumonia. nodules also present concerning for possible underlying malignancy. Appreciate pulm consultation and recs. Cont zosyn. Needs CT abd/pelvis but had such at [facility] in the last few weeks - will attempt to get those records. (3) Acute metabolic encephalopathy: Plan: Probably multifactorial - hospital psychosis, sepsis, pneumonia; can't rule out nutritional deficiencies (Wernicke's, etc). IMPROVED today. Supportive care. Hold TCA, sedatives, etc. B12 wnl. B1 level pending - thiamine 500mg IV q8h x 2 days, then 200mg BID thereafter (due to h/o alcoholism). (4) Sepsis: Plan: 2nd to pneumonia. improving. Follow blood cx's - thus far neg. (5) Pneumonia: Plan: Cont zosyn. day #3 of such. Doubt atypicals - defer on coverage for such for now. Aspiration vs gram negative (although he passed his video swallow today). (6) SHEBA (acute kidney injury): Plan: Baseline renal function? Daughters not aware of any CKD. Cr improved overnight with IV fluids. Cr now 2. Stop IVF. BMP in am. (7) Elevated troponin: Plan: Peak HS trop 79. Likely myocardial demand ischemia. Doubt ACS. (8) COPD (chronic obstructive pulmonary disease): Plan: No wheezing on exam today. Will reduce to BID dosing of solumedrol today, then over to PO prednisone tomorrow. Cont nebs. Cont inhalers. (9) Alcohol abuse: Plan: Long standing history of such. Went thru withdrawal at [facility]. Had etoh withdrawal seizures by report. Check B1 level. Should be on MVI/thiamine/folate supplementation - ordered. no evidence of any ongoing withdrawal. (10) Paroxysmal A-fib: Plan: Had such while at [facility]. Cont amiodarone to maintain NSR. Cont Eliquis 5mg BID (has SHEBA, but weight is >60kg and age is 73). (11) Polymyalgia rheumatica: Plan: Sees rheum for such. On chronic steroids - basal dose uncertain. Await records from [place]. (12) Severe protein-calorie malnutrition: Plan: Patient cachectic, etc. Added boost, MVI, etc. (13) Rheumatoid arthritis: Plan: On prednisone + plaquenil chronically for such. No evidence of RA flare. (14) Unilateral vocal cord paralysis: Plan: Due to intubation/ventilation years ago at [facility] following a logging accident. (15) Anemia: Plan: H/H stable. B12, folate, Fe studies wnl. Likely anemia of chronic disease from RA, bone marrow suppression from etoh, blood draws, etc. (16) DVT prophylaxis: Plan: Eliquis Plan needs PT/OT daughters extensively updated at bedside yesterday, and briefly updated today await records from [facility] Admission and Anticipated Discharge Date Admission Date: August 26, 2023 Subjective tele overnight wnl pt feeling better today still with cough but denies dyspnea at rest denies chest pain or abd pain eating is better today more awake, able to tell me "[facility]" and that it is 2022 cracking jokes as well Review of Systems Review of Systems: gen - no fevers, but generalized weakness remains cv - no orthopnea pulm - no sputum, no wheezing GI - no N/V Physical Exam Physical Exam: gen - very thin, speech more clear today; cachectic in appearance, more awake/alert today HENT - MM more moist today; hoarse, low-pitched voice neck - no JVD heart - RRR, s1 s2, no murmur lungs - b/l crackles much worse on left (about 1/2 way up L back); no wheeze, no increased work of breathing abd - soft NT ND BS+ ext - no edema, pulses 2+ b/l psych - a/o x 3 Results & Data Results & Data Vital Signs (Past 12 Hours) Vital Signs Temp Pulse Pulse Resp BP Pulse Ox Pulse Ox 08/29/23 03:42 36.4 C L 83 18 166/91 H 94 08/29/23 03:10 77 18 90 08/28/23 23:00 95 08/28/23 22:29 78 20 88 L 08/28/23 22:10 92 H 08/28/23 20:45 08/28/23 19:27 36.8 C 89 18 145/84 H 95 08/28/23 17:56 75 20 90 O2 Del Method O2 Del Method O2 Flow Rate O2 Flow Rate 08/29/23 03:42 Nasal Cannula 3 08/29/23 03:10 Nasal Cannula 3 08/28/23 23:00 Nasal Cannula 2 08/28/23 22:29 Nasal Cannula 3 08/28/23 22:10 08/28/23 20:45 Nasal Cannula 2 08/28/23 19:27 Nasal Cannula 3 08/28/23 17:56 Nasal Cannula 2 Laboratory Results Laboratory Results - last 24 hr 08/28/23 07:17 WBC 14.95 H RBC 3.01 L Hgb 9.3 L Hct 29.4 L MCV 97.7 MCH 30.9 MCHC 31.6 L RDW Std Deviation 48.7 H RDW Coeff of Jesse 13.6 Plt Count 252 MPV 9.3 L Immature Gran % (Auto) 0.7 Neut % (Auto) 93.6 Lymph % (Auto) 2.3 Sierra % (Auto) 3.3 Eos % (Auto) 0.0 Baso % (Auto) 0.1 Neut # (Auto) 14.00 H Lymph # (Auto) 0.34 L Sierra # (Auto) 0.49 Eos # (Auto) 0.00 Baso # (Auto) 0.02 Immature Gran # (Auto) 0.10 RBC Morphology Unremarkable Sodium 141 Potassium 3.4 L Chloride 107 Carbon Dioxide 25 Anion Gap 9 BUN 53 H Creatinine 2.02 H D Est Cr Clr Drug Dosing 30.4 Est GFR ( Amer) 37.1 Est GFR (Non-Af Amer) 32.0 BUN/Creatinine Ratio 26.2 H Glucose 126 H Calcium 9.1 Magnesium 1.7 Iron 31 L TIBC 176 L Unsaturated IBC 145 L Transferrin % Sat 18 L Ferritin 197.8 Vitamin B1 Pending Vitamin B12 851 Folate > 22.30 PG Care Time/CCT Total # of Minutes Spent Total Time Spent with Patient: Total time spent is greater than 50% in coordination of care (as documented) at patient's floor/unit and/or counseling patient: Coding Level of Care Code 61268 SUB INP/OBS CARE 2/35MIN Diagnoses Acute hypoxic respiratory failure J96.[address] scan, chest R93.89 Acute metabolic encephalopathy G93.41 Sepsis A41.9 Acute respiratory failure type: with hypoxia Sepsis acute organ dysfunction status: with acute organ dysfunction Sepsis type: sepsis due to unspecified organism Severe sepsis shock status: unspecified Pneumonia J18.9 Laterality: left Lung location: unspecified part of lung Pneumonia type: due to unspecified organism SHEBA (acute kidney injury) N17.9 Elevated troponin R79.89 COPD (chronic obstructive pulmonary disease) J44.9 Alcohol abuse F10.10 Paroxysmal A-fib I48.0 Polymyalgia rheumatica M35.3 Severe protein-calorie malnutrition E43 Rheumatoid arthritis M06.9 Unilateral vocal cord paralysis J38.01 Anemia D64.9 DVT prophylaxis Z29.9 (4) Sepsis Acute respiratory failure type: with hypoxia Sepsis acute organ dysfunction status: with acute organ dysfunction Sepsis type: sepsis due to unspecified organism Severe sepsis shock status: unspecified (5) Pneumonia Laterality: left Lung location: unspecified part of lung Pneumonia type: due to unspecified organism Qualified Code(s): J18.9 - Pneumonia, unspecified organism
[2023-08-29] MEDS: PANTOprazole 40 MG TAB PO SCH (05:34)
[2023-08-29] MEDS: PIPERACILLIN/TAZOBACTAM 4.5 GM in DEXTROSE 5% MINI-B 100 ML IV SCH ×3 (05:34→23:17)
[2023-08-29 07:24] LABS: Hematocrit (blood only) 30.1 % (42.0-52.0); Hemoglobin 9.5 g/dl (14.0-18.0); Mean Corpuscular Hemoglobin 31.4 pg (25.0-34.0); Mean Corpuscular Hgb Conc 31.6 g/dL (32.0-36.0); Mean Corpuscular Volume 99.3 fL (80.0-100.0); Mean Platelet Volume 9.6 fL (9.4-12.4); Platelet Count 242 K/uL (130-400); RDW Coefficient of Variation 13.6 % (11.5-14.5); RDW Standard Deviation 48.3 fL (36.4-46.3); Red Blood Count 3.03 M/uL (4.70-6.10); White Blood Count 13.31 K/ul (4.8-10.8)
[2023-08-29 07:54] LABS: Basophils # (auto) 0.01 K/uL (0.00-0.20); Basophils % (auto) 0.1 %; Immature Granulocytes # (auto) 0.06 K/uL (0.01-0.20); Immature Granulocytes % (auto) 0.5 %; Lymphocytes # (auto) 0.48 K/uL (1.20-3.40); Lymphocytes % (auto) 3.6 %; Monocytes # (auto) 0.59 K/uL (0.11-0.59); Monocytes % (auto) 4.4 %; Neutrophils # (auto) 12.17 K/uL (1.40-6.50); Neutrophils % (auto) 91.4 %; RBC Morphology Unremarkable
[2023-08-29 07:57] LABS: Creatinine Clr Calc Pharmacy 36.5 ml/min; Est GFR (African American) 46.7 ml/min; Est GFR (Non-African American) 40.3 ml/min; Magnesium 1.7 mg/dl (1.7-2.4); Potassium 4.1 mmol/L (3.5-5.1)
[2023-08-29] MEDS: methylPREDNISolone 40 MG in SYRINGE 0 ML IV SCH (08:46)
[2023-08-29] MEDS: UMECLIDINIUM BROMIDE 62.5MCG/BLISTER 7 PUFFS/INHALER INH SCH (09:10)
[2023-08-29] MEDS: DOCUSATE SODIUM 100 MG CAP PO SCH ×2 (09:11→20:31)
[2023-08-29] MEDS: AMIODARONE 200 MG TAB PO SCH ×2 (09:11→20:31)
[2023-08-29] MEDS: APIXABAN 5 MG TABLET PO SCH ×2 (09:11→20:32)
[2023-08-29] MEDS: CEROVITE ADV FORMULA TAB PO SCH (09:12)
[2023-08-29] MEDS: HYDROXYCHLOROQUINE SULFATE 200 MG TAB PO SCH ×2 (09:12→20:33)
[2023-08-29] MEDS: ZINC SULFATE 220 MG CAPSULE PO SCH (09:12)
[2023-08-29] MEDS: METOPROLOL TARTRATE 25 MG TAB PO SCH ×2 (09:12→20:33)
[2023-08-29] MEDS: FOLIC ACID 1 MG TAB PO SCH (09:12)
[2023-08-29] MEDS: POTASSIUM CHLORIDE CRTAB 20 MEQ TABCR PO SCH ×2 (09:17→20:35)
--- NOTE | 2023-08-29 15:19 | Pulmonology Progress Note ---
Date of Service August 29, 2023 Assessment & Plan (1) Pneumonia: Laterality: left Lung location: unspecified part of lung Pneumonia type: due to unspecified organism Qualified Code(s): J18.9 - Pneumonia, unspecified organism (2) Abnormal CT scan, chest: (3) COPD (chronic obstructive pulmonary disease): Plan I reviewed the CT chest which is concerning for possible metastatic disease versus septic emboli. Aspiration pneumonia also in the differential. Agree with broad-spectrum antibiotics. Please follow blood cultures and echocardiogram results. Can taper IV methylprednisolone to p.o. prednisone. If blood cultures and echocardiogram are negative for bacteremia or endocarditis, would strongly encourage a CT-guided biopsy of 1 of these peripheral base pleural lesions. Recommend obtaining CT abdomen/pelvis as well to look for intra-abdominal malignancy. Consider MRI brain as well. Thanks for the consult. Will follow. Admission and Anticipated Discharge Date Admission Date: August 26, 2023 Subjective Patient seen and examined. He is awake and alert. He denies any shortness of breath at rest. He does have an occasional cough with productive sputum. Denies any fevers, chills or night sweats. No chest pain. Review of Systems Review of Systems: All systems reviewed & are unremarkable except as noted in HPI & below Physical Exam Physical Exam: Constitutional: Patient appears to be of their stated age. Patient is in no apparent distress. Patient is well-developed. Eyes: Pupils are equal round and reactive to light. Conjunctivae are normal. Anicteric sclera. Ears nose, mouth and throat: Mallampati class 2. Normal posterior oropharynx. Uvula is midline. Neck: Trachea is midline. Visual inspection is normal. Respiratory: Bilateral wheezes and rales. Cardiovascular: Regular rate and rhythm. No murmurs. No edema. Gastrointestinal: Normal bowel sounds, soft, nontender and nondistended. No hepatosplenomegaly noted. Musculoskeletal: No cyanosis. Patient is able to move all extremities. Strength is 5 out of 5 in the upper and lower extremities. Skin: No rashes, warm dry and intact. Neurologic: No obvious focal neurological deficits seen. Psychiatric: Alert and oriented x3 with a euthymic affect. Results & Data Results & Data Vital Signs (Past 12 Hours) Vital Signs Temp Pulse Resp BP BP Pulse Ox O2 Del Method 08/29/23 14:41 89 18 95 Nasal Cannula 12/10/23 12:10 36.9 C 82 20 143/92 H Nasal Cannula 08/29/23 11:05 80 18 96 Nasal Cannula 08/29/23 09:00 Nasal Cannula 08/29/23 07:32 36.7 C 89 20 163/99 H 98 Nasal Cannula 08/29/23 07:01 86 18 96 Nasal Cannula 08/29/23 03:42 36.4 C L 83 18 166/91 H 94 Nasal Cannula O2 Flow Rate 08/29/23 14:41 3 08/29/23 12:10 3.0 08/29/23 11:05 2 08/29/23 09:00 3 08/29/23 07:32 3.0 08/29/23 07:01 3 08/29/23 03:42 3 PG Care Time/CCT Total # of Minutes Spent Total Time Spent with Patient: Total time spent is greater than 50% in coordination of care (as documented) at patient's floor/unit and/or counseling patient: Coding Level of Care Code 31635 SUB INP/OBS CARE 2/35MIN Diagnoses Pneumonia J18.9 Laterality: left Lung location: unspecified part of lung Pneumonia type: due to unspecified organism Abnormal CT scan, chest R93.89 COPD (chronic obstructive pulmonary disease) J44.9
--- NOTE | 2023-08-29 19:54 | Hospitalist Progress Note ---
Date of Service August 29, 2023 Assessment & Plan (1) Acute hypoxic respiratory failure: Plan: 2nd to pneumonia - aspiration vs gram negative. Cont zosyn - day #4 of such. No prior h/o MRSA and MRSA [facility] swab neg thus MRSA coverage deferred. Appreciate pulm consultation. CT chest findings noted. Cont steroids, nebs, etc. Wean steroids today. (2) Abnormal CT scan, chest: Plan: b/l pneumonia. nodules also present - concerning for possible underlying malignancy. Appreciate pulm consultation and recs. Cont zosyn. Needs CT abd/pelvis but had such at [facility] in the last few weeks - will attempt to get those records. Also had MRI brain - will attempt to get that report. (3) Acute metabolic encephalopathy: Plan: multifactorial - hospital psychosis, sepsis, pneumonia; can't rule out nutritional deficiencies (Wernicke's, etc). Supportive care. Hold TCA, sedatives, muscle relaxers, etc. B12 wnl. B1 level pending - thiamine 500mg IV q8h x 2 days, then 200mg BID thereafter (due to h/o alcoholism). (4) Sepsis: Plan: 2nd to pneumonia. improving. Follow blood cx's - they remain neg. (5) Pneumonia: Plan: Cont zosyn. day #4 of such. Doubt atypicals - defer on coverage for such for now. Aspiration vs gram negative (although he passed his video swallow today). (6) SHEBA (acute kidney injury): Plan: Baseline renal function? Cr again improved. Cr now 1.6. BMP in am. (7) Elevated troponin: Plan: Peak HS trop 79. Likely myocardial demand ischemia. Doubt ACS. (8) COPD (chronic obstructive pulmonary disease): Plan: Again No wheezing on exam today. stop solumedrol. change to PO prednisone 40mg daily starting tomorrow. Cont nebs. Cont inhalers. (9) Alcohol abuse: Plan: Long standing history of such. Went thru withdrawal at [facility]. Had etoh withdrawal seizures by report. Check B1 level. Should be on MVI/thiamine/folate supplementation - ordered. no evidence of any ongoing withdrawal. (10) Paroxysmal A-fib: Plan: Had such while at [facility]. Cont amiodarone to maintain NSR. Cont Eliquis 5mg BID (has SHEBA, but weight is >60kg and age is 73). Suspect we can decrease to 200mg BID on the amiodarone on 09/05 (400mg BID started 08/26?). (11) Polymyalgia rheumatica: Plan: Sees rheum for such. On chronic steroids - basal dose uncertain. Await records from [place]. (12) Severe protein-calorie malnutrition: Plan: Patient cachectic, etc. Added boost, MVI, etc. (13) Rheumatoid arthritis: Plan: On prednisone + plaquenil chronically for such. No evidence of RA flare. (14) Unilateral vocal cord paralysis: Plan: Due to intubation/ventilation years ago at [facility] following a logging accident. (15) Anemia: Plan: H/H stable. B12, folate, Fe studies wnl. Likely anemia of chronic disease from RA, bone marrow suppression from etoh, blood draws, etc. (16) DVT prophylaxis: Plan: Eliquis Plan PT/OT daughters extensively updated at bedside over the weekend await records from [facility] Admission and Anticipated Discharge Date Admission Date: August 26, 2023 Subjective no issues overnight he was a little confused during the visit stating "I'm gonna go for a ride" when asked to clarify he said "go for a ride in the car with my girls" he was eating popcicles during the visit he denied any dyspnea beyond his usual baseline dyspnea mild cough denies worsening pain in any location he does recall being told by Dr Randall that there may be "cancer in there" (his lungs) Review of Systems Review of Systems: gen - fatigue, weak cv - no chest pain GI - no abd pain Physical Exam Physical Exam: gen - very thin, eating popcicles; cachectic in appearance, awake/alert but a little confused HENT - MM moist; hoarse, low-pitched voice neck - no JVD heart - RRR, s1 s2, no murmur lungs - b/l crackles improved today ; no wheeze, good air movement, no increased work of breathing abd - soft NT ND BS+ ext - no edema, pulses 2+ b/l Results & Data Results & Data Vital Signs (Past 12 Hours) Vital Signs Temp Pulse Resp BP BP Pulse Ox O2 Del Method 08/29/23 19:45 89 18 98 Nasal Cannula 08/29/23 19:00 37 C 88 18 173/94 H 94 Room Air 08/29/23 15:53 36.7 C 88 19 164/94 H 97 Nasal Cannula 08/29/23 14:41 89 18 95 Nasal Cannula 08/29/23 12:10 36.9 C 82 20 143/92 H Nasal Cannula 08/29/23 11:05 80 18 96 Nasal Cannula 08/29/23 09:00 Nasal Cannula O2 Flow Rate 08/29/23 19:45 2 08/29/23 19:00 1 08/29/23 15:53 1.0 08/29/23 14:41 3 08/29/23 12:10 3.0 08/29/23 11:05 2 08/29/23 09:00 3 Laboratory Results Laboratory Results - last 24 hr 08/29/23 05:54 WBC 13.31 H RBC 3.03 L Hgb 9.5 L Hct 30.1 L MCV 99.3 MCH 31.4 MCHC 31.6 L RDW Std Deviation 48.3 H RDW Coeff of Jesse 13.6 Plt Count 242 MPV 9.6 Immature Gran % (Auto) 0.5 Neut % (Auto) 91.4 Lymph % (Auto) 3.6 [place] % (Auto) 4.4 Eos % (Auto) 0.0 Baso % (Auto) 0.1 Neut # (Auto) 12.17 H Lymph # (Auto) 0.48 L [place] # (Auto) 0.59 Eos # (Auto) 0.00 Baso # (Auto) 0.01 Immature Gran # (Auto) 0.06 RBC Morphology Unremarkable Sodium 141 Potassium 4.1 D Chloride 108 H Carbon Dioxide 27 Anion Gap 6 BUN 40 H Creatinine 1.67 H D Est Cr Clr Drug Dosing 36.5 Est GFR ( Amer) 46.7 Est GFR (Non-Af Amer) 40.3 BUN/Creatinine Ratio 24.0 H Glucose 102 H Calcium 9.0 Magnesium 1.7 PG Care Time/CCT Total # of Minutes Spent Total Time Spent with Patient: Total time spent is greater than 50% in coordination of care (as documented) at patient's floor/unit and/or counseling patient: Coding Level of Care Code 11188 SUB INP/OBS CARE 2/35MIN Diagnoses Acute hypoxic respiratory failure J96.[address] scan, chest R93.89 Acute metabolic encephalopathy G93.41 Sepsis A41.9 Acute respiratory failure type: with hypoxia Sepsis acute organ dysfunction status: with acute organ dysfunction Sepsis type: sepsis due to unspecified organism Severe sepsis shock status: unspecified Pneumonia J18.9 Laterality: left Lung location: unspecified part of lung Pneumonia type: due to unspecified organism SHEBA (acute kidney injury) N17.9 Elevated troponin R79.89 COPD (chronic obstructive pulmonary disease) J44.9 Alcohol abuse F10.10 Paroxysmal A-fib I48.0 Polymyalgia rheumatica M35.3 Severe protein-calorie malnutrition E43 Rheumatoid arthritis M06.9 Unilateral vocal cord paralysis J38.01 Anemia D64.9 DVT prophylaxis Z29.9 (4) Sepsis Acute respiratory failure type: with hypoxia Sepsis acute organ dysfunction status: with acute organ dysfunction Sepsis type: sepsis due to unspecified organism Severe sepsis shock status: unspecified (5) Pneumonia Laterality: left Lung location: unspecified part of lung Pneumonia type: due to unspecified organism Qualified Code(s): J18.9 - Pneumonia, unspecified organism
[2023-08-30] MEDS: THIAMINE HCL 500 MG in SODIUM CHLORIDE 0.9% 50 ML IV SCH (03:13)
[2023-08-30] MEDS: PIPERACILLIN/TAZOBACTAM 4.5 GM in DEXTROSE 5% MINI-B 100 ML IV SCH (05:35)
[2023-08-30] MEDS: PANTOprazole 40 MG TAB PO SCH (05:36)
[2023-08-30 06:04] LABS: Basophils # (auto) 0.02 K/uL (0.00-0.20); Basophils % (auto) 0.1 %; Eosinophils # (auto) 0.04 K/uL (0.00-0.50); Eosinophils % (auto) 0.2 %; Hematocrit (blood only) 31.7 % (42.0-52.0); Hemoglobin 10.3 g/dl (14.0-18.0); Immature Granulocytes # (auto) 0.12 K/uL (0.01-0.20); Immature Granulocytes % (auto) 0.7 %; Lymphocytes # (auto) 0.84 K/uL (1.20-3.40); Lymphocytes % (auto) 5.2 %; Mean Corpuscular Hemoglobin 31.1 pg (25.0-34.0); Mean Corpuscular Hgb Conc 32.5 g/dL (32.0-36.0); Mean Corpuscular Volume 95.8 fL (80.0-100.0); Mean Platelet Volume 9.3 fL (9.4-12.4); Monocytes # (auto) 1.04 K/uL (0.11-0.59); Monocytes % (auto) 6.5 %; Neutrophils # (auto) 13.95 K/uL (1.40-6.50); Neutrophils % (auto) 87.3 %; Platelet Count 260 K/uL (130-400); RDW Coefficient of Variation 13.6 % (11.5-14.5); RDW Standard Deviation 47.5 fL (36.4-46.3); Red Blood Count 3.31 M/uL (4.70-6.10); White Blood Count 16.01 K/ul (4.8-10.8)
[2023-08-30 06:12] LABS: BUN Creatinine Ratio 18.2 (10-20); Calcium 9.2 mg/dl (8.6-10.3); Creatinine Clr Calc Pharmacy 30.8 ml/min; Est GFR (Non-African American) 32.8 ml/min; Potassium 4.5 mmol/L (3.5-5.1)
[2023-08-30] MEDS: ALBUT/IPRATROP 3MG/0.5MG NEB 3 ML VIAL INH SCH ×4 (07:05→19:41)
[2023-08-30] MEDS: DOCUSATE SODIUM 100 MG CAP PO SCH ×3 (08:45→22:38)
[2023-08-30] MEDS: FOLIC ACID 1 MG TAB PO SCH (08:46)
[2023-08-30] MEDS: APIXABAN 5 MG TABLET PO SCH ×3 (08:46→22:38)
[2023-08-30] MEDS: AMIODARONE 200 MG TAB PO SCH ×3 (08:47→22:39)
[2023-08-30] MEDS: HYDROXYCHLOROQUINE SULFATE 200 MG TAB PO SCH ×3 (08:47→22:39)
[2023-08-30] MEDS: CEROVITE ADV FORMULA TAB PO SCH (08:47)
[2023-08-30] MEDS: ZINC SULFATE 220 MG CAPSULE PO SCH (08:47)
[2023-08-30] MEDS: UMECLIDINIUM BROMIDE 62.5MCG/BLISTER 7 PUFFS/INHALER INH SCH (08:49)
[2023-08-30] MEDS: METOPROLOL TARTRATE 25 MG TAB PO SCH (08:49)
[2023-08-30] MEDS ORDERED: predniSONE 20 MG TAB PO SCH (09:00)
--- NOTE | 2023-08-30 12:23 | Pulmonology Progress Note ---
Date of Service August 30, 2023 Assessment & Plan (1) Pneumonia: Laterality: left Lung location: unspecified part of lung P neumonia type: due to unspecified organism Qualified Code(s): J18.9 - Pneumonia, unspecified organism (2) Abnormal CT scan, chest: (3) COPD (chronic obstructive pulmonary disease): Plan Impression: 73-year-old male with history of alcohol abuse recently admitted to [facility] where he was treated for alcohol withdrawal and respiratory failure. Those records are not available to review. He was admitted from [facility] 08/26/2023 with hypoxemia and altered mental status. His CT scan showed multifocal nodular densities of unclear etiology and unclear chronicity. He is being treated for potential multifocal pneumonia. Recommendations: 1. Multiple pulmonary nodules: Recommend getting imaging studies from [facility] to ascertain whether or not these nodules were present previously or not. Biopsy would require discontinuation of the patient's anticoagulation. He is currently on apixaban. His admission white blood cell count was 18,000. He is currently day #5 piperacillin/tazobactam. Antibiotics can be de-escalated to Unasyn as I do not think he requires pseudomonal coverage. Will repeat his blood cultures although sensitivity on antibiotics is can to be significantly lower. Surface echocardiogram was unremarkable for valvular lesions. Recommend CT of the abdomen and pelvis with oral and IV contrast if kidney function can tolerate. MRI of the brain with and without contrast also recommended although the patient's current delirium likely will preclude getting the study currently. If this is malignancy, it is widely metastatic and the patient appears to be a poor candidate for systemic chemotherapy currently. There is a potential hypodensity in the liver/below the liver which was poorly visualized on the CT scan and additional imaging is recommended. 2. Would recommend getting hospital notes and discharge summary from [facility] as well to ascertain which antibiotics he was treated with there. 3. COPD: The patient does not appear to be suffering an acute exacerbation of COPD. Recommend continuing Anoro. Okay to taper prednisone to off over the next 2 to 3 days. 4. Hypoxemia: Continue supplemental oxygen. Patient's overall prognosis is guarded. Total of 50 minutes was spent in evaluation management coordinating care of this patient. Admission and Anticipated Discharge Date Admission Date: August 26, 2023 Subjective Patient seen and examined. He is developed increasing confusion overnight. He has been intermittently agitated and has removed monitoring devices and his pulse oximeter. He reports that his breathing is about the same. He is not coughing or expectorating any significant phlegm. He denies any chest pain or palpitations. No significant lower extremity edema. He has not been febrile. Review of Systems 2 Review of Systems: Unobtainable due to cognitive status Physical Exam 2 Constitutional: WD/WN, vitals as above Intermittently agitated and delirious Neck: trachea midline, no thyromegaly Respiratory: no respiratory distress, no labored breathing and no cough A uscultation: + rhonchi; no wheezes Cardiovascular: RRR, no murmur, no edema Gastrointestinal (Abdomen): normal bowel sounds, soft, nontender, no hepatosplenomegaly Musculoskeletal: Extremities: extremities normal to inspection Skin: no rashes, warm and dry Neurologic: Nonfocal exam Lymphatic: no cervical lymphadenopathy Results & Data Results & Data Vital Signs (Past 12 Hours) Vital Signs Temp Pulse Pulse Resp BP BP Pulse Ox 08/30/23 10:18 81 18 94 08/30/23 08:57 08/30/23 08:04 36.8 C 98 H 21 144/73 H 93 08/30/23 08:00 85 08/30/23 07:05 88 16 91 08/30/23 03:05 36.5 C 86 18 144/89 H 89 L O2 Del Method O2 Flow Rate 08/30/23 10:18 Nasal Cannula 3 08/30/23 08:57 Nasal Cannula 3 08/30/23 08:04 Nasal Cannula 1.0 08/30/23 08:00 08/30/23 07:05 Room Air 08/30/23 03:05 Room Air Laboratory Results 08/30/23 05:39 08/30/23 05:39 Microbiology 08/26/23 17:46 Blood Aerobic Blood Culture - Preliminary No growth in Aerobic bottle after 48 hours. 08/26/23 17:46 Blood Anaerobic Blood Culture - Final 08/26/23 17:47 Blood Aerobic Blood Culture - Preliminary No growth in Aerobic bottle after 48 hours. 08/26/23 17:47 Blood Anaerobic Blood Culture - Preliminary No growth in Anaerobic bottle after 48 hours. PG Care Time/CCT Total # of Minutes Spent Total Time Spent with Patient: Total time spent is greater than 50% in coordination of care (as documented) at patient's floor/unit and/or counseling patient: Coding Level of Care Code 97668 SUB INP/OBS CARE 50MIN Diagnoses Pneumonia J18.9 Laterality: left Lung location: unspecified part of lung Pneumonia type: due to unspecified organism Abnormal CT scan, chest R93.89 COPD (chronic obstructive pulmonary disease) J44.9
[2023-08-30] MEDS ORDERED: AMPICILLIN SOD/SULBACTAM SOD 1,500 MG in SODIUM CHLOR 0.9% MINI-B 100 ML IV STA (12:29)
--- NOTE | 2023-08-30 15:58 | Hospitalist Progress Note ---
Date of Service August 30, 2023 Assessment & Plan (1) Abdominal distension: Plan: KUB x-ray this afternoon with gaseous distension of small/large bowel Certainly this could represent ileus but he had a SBO in early July when he first presented to [facility] in [facility] see #[address] a/p oral contrast only ordered urgently to exclude SBO (2) SBO (small bowel obstruction): Plan: had such early July upon presentation to [facility] in [facility] records suggest the transition point was in the terminal ileum he was treated conservatively with NG tube, etc and did not require surgery KUB x-ray today with gaseous distension throughout the small and large bowel his distension on exam is acute - he had a soft abdomen over the weekend staff state he had a liquid stool earlier today creatinine too high (and CrCL borderline) to safely give IV contrast today will order CT abd/pelvis with PO contast only urgently r/o recurrent SBO in addition to the SBO records suggest that there was an irregularity in the ascending colon the report suggested that malignancy could not be excluded I spoke with the pt's daughter Hortencia by phone this evening she states that he was seen by GI after he was transferred from [facility] to [place] by her recollection GI told her and her family that malignancy of the colon was of low concern with that said GI dispatched a CEA level I tried looking for that CEA level in the records sent but it was not present the records state his last colonoscopy was 2018 which showed diverticulosis + hemorrhoids but no polyps EGD at the same time showed hiatal hernia CT a/p hopefully will shed additional light on the question of malignancy (3) Acute hypoxic respiratory failure: Plan: 2nd to pneumonia - aspiration vs gram negative. Cont zosyn - day #5 of such. No prior h/o MRSA and MRSA [employer] swab neg thus MRSA coverage deferred. Appreciate pulm consultation. They have downgraded his zosyn to unasyn today. CT chest findings noted. Cont steroids, nebs, etc. Wean steroids today from IV solumedrol to PO prednisone. (4) Abnormal CT scan, chest: Plan: b/l pneumonia. nodules also present - concerning for possible underlying malignancy. Appreciate pulm consultation and recs. Cont abx. of note - the CT chest/abd/pelvis done at [facility] were referenced in progress notes from those hospitals but the formal reports were missing. we have re-requested the formal CT reports as well as MRI brain report (Family states he had such in [place]). (5) Acute metabolic encephalopathy: Plan: multifactorial - hospital psychosis, sepsis, pneumonia; can't rule out nutritional deficiencies (Wernicke's, etc). Supportive care. Hold TCA, sedatives, muscle relaxers, etc. B12 wnl. B1 level pending - thiamine 500mg IV q8h x 2 days, then 200mg BID thereafter (due to h/o alcoholism). (6) Sepsis: Plan: 2nd to pneumonia. improving. But now WBC count climbing again - 2nd to steroids? worsening pneumonia? other? Follow blood cx's - they remain neg. serial cbcs, exams, etc. (7) Pneumonia: Plan: day #5 IV abx. pulmonary changed zosyn to unasyn. Doubt atypicals - defer on coverage for such for now. Aspiration vs gram negative (although he passed his video swallow earlier in the stay). (8) SHEBA (acute kidney injury): Plan: Baseline renal function? limited records show Cr 1.5 on 08/25/23 prior to d/c from [facility] Cr had improved down to 1.6 yesterday but now back to 2. BMP in am. (9) Elevated troponin: Plan: Peak HS trop 79. Likely myocardial demand ischemia. Doubt ACS. (10) COPD (chronic obstructive pulmonary disease): Plan: Again No wheezing on exam today. stop solumedrol. change to PO prednisone 40mg daily starting today. Cont nebs. Cont inhalers. (11) Alcohol abuse: Plan: Long standing history of such. Went thru withdrawal at [facility]. Had etoh withdrawal seizures by report. Check B1 level. Should be on MVI/thiamine/folate supplementation - ordered. no evidence of any ongoing withdrawal. last etoh beverage is 30+ days ago. (12) Paroxysmal A-fib: Plan: Had such while at [facility]. Cont amiodarone to maintain NSR. Cont Eliquis 5mg BID (has SHEBA, but weight is >60kg and age is 73). Suspect we can decrease to 200mg BID on the amiodarone on 09/05 (400mg BID started 08/26?). (13) Polymyalgia rheumatica: Plan: Sees rheum for such. On chronic steroids - basal dose uncertain. Await records from [place]. (14) Severe protein-calorie malnutrition: Plan: Patient cachectic, etc. Added boost, MVI, etc. (15) Rheumatoid arthritis: Plan: On prednisone + plaquenil chronically for such. No evidence of RA flare. (16) Unilateral vocal cord paralysis: Plan: Due to intubation/ventilation years ago at [facility] following a logging accident. (17) Anemia: Plan: H/H stable. B12, folate, Fe studies wnl. Likely anemia of chronic disease from RA, bone marrow suppression from etoh, blood draws, etc. (18) DVT prophylaxis: Plan: Eliquis Plan PT/OT when able daughters extensively updated at bedside over the weekend I only have about 1/2 the records from [facility] - we have requested records again, particularly radiological reports and micro reports of note - he did have bronchoscopy while on the vent in [place] - 08/06/23 - no endobronchial lesions seen spoke with pt's daughter Hortencia this evening extensive discussion held I mentioned that we had received some of the records finally told her my concerns about he CT a/p done at [place] showing ?ascending colon lesion as well as CT chest done here showing metastatic lesions explained that he was overall doing poorly with little to no appetite and that there was heavy concern about underlying malignancy explained that he was distended on abdominal exam today I spoke with her prior to CT a/p results being available (CT a/p ordered late afternoon) told her I would be going off-service but pulmonary would continue to follow and that we would likely need to involve other consultants to arrive at a diagnosis for the pulmonary lesions and the ?colonic lesions (heme/onc, GI, radiology, etc) total time today about 60 minutes between records review, speaking with daughter, bedside visit, etc Admission and Anticipated Discharge Date Admission Date: August 26, 2023 Subjective patient confused during the visit his brother was at bedside staff report very little appetite - only eating popcicles he was unable to provide any meaningful history or ROS during my bedside rounds by report was agitated overnight did have bowel movement earlier in the day no vomiting denies any dyspnea he desats any time his O2 comes off Review of Systems Review of Systems: Unobtainable due to cognitive status Physical Exam Physical Exam: gen - very thin, eating popcicles; cachectic in appearance, awake/alert but confused HENT - MM dry; hoarse, low-pitched voice (chronic) neck - no JVD heart - RRR, s1 s2, no murmur lungs - b/l crackles much worse L base; no wheeze, fair air movement, mild tachypnea noted abd - distended, BS+, nontender, tympanic to percussion ext - no edema, pulses 2+ b/l, limbs very thing neuro - generalized muscle wasting of all 4 limbs Results & Data Results & Data Vital Signs (Past 12 Hours) Vital Signs Temp Pulse Pulse Resp BP Pulse Ox O2 Del Method 08/30/23 14:58 36.7 C 90 18 156/96 H 93 Nasal Cannula 08/30/23 14:09 87 18 89 L Nasal Cannula 08/30/23 10:18 81 18 94 Nasal Cannula 08/30/23 08:57 Nasal Cannula 08/30/23 08:04 36.8 C 98 H 21 144/73 H 93 Nasal Cannula 08/30/23 08:00 85 08/30/23 07:05 88 16 91 Room Air O2 Flow Rate 08/30/23 14:58 2.0 08/30/23 14:09 2 08/30/23 10:18 3 08/30/23 08:57 3 08/30/23 08:04 1.0 08/30/23 08:00 08/30/23 07:05 Laboratory Results Laboratory Results - last 24 hr 08/30/23 05:39 WBC 16.01 H RBC 3.31 L Hgb 10.3 L Hct 31.7 L MCV 95.8 MCH 31.1 MCHC 32.5 RDW Std Deviation 47.5 H RDW Coeff of Jesse 13.6 Plt Count 260 MPV 9.3 L Immature Gran % (Auto) 0.7 Neut % (Auto) 87.3 Lymph % (Auto) 5.2 Linn % (Auto) 6.5 Eos % (Auto) 0.2 Baso % (Auto) 0.1 Neut # (Auto) 13.95 H Lymph # (Auto) 0.84 L Linn # (Auto) 1.04 H Eos # (Auto) 0.04 Baso # (Auto) 0.02 Immature Gran # (Auto) 0.12 Sodium 140 Potassium 4.5 Chloride 108 H Carbon Dioxide 23 Anion Gap 9 BUN 36 H Creatinine 1.98 H D Est Cr Clr Drug Dosing 30.8 Est GFR ( Amer) 38.0 Est GFR (Non-Af Amer) 32.8 BUN/Creatinine Ratio 18.2 Glucose 95 Calcium 9.2 PG Care Time/CCT Total # of Minutes Spent Total Time Spent with Patient: Total time spent is greater than 50% in coordination of care (as documented) at patient's floor/unit and/or counseling patient: Coding Level of Care Code 88730 SUB INP/OBS CARE 3/50MIN Diagnoses Abdominal distension R14.0 SBO (small bowel obstruction) K56.609 Acute hypoxic respiratory failure J96.[address] scan, chest R93.89 Acute metabolic encephalopathy G93.41 Sepsis A41.9 Acute respiratory failure type: with hypoxia Sepsis acute organ dysfunction status: with acute organ dysfunction Sepsis type: sepsis due to unspecified organism Severe sepsis shock status: unspecified Pneumonia J18.9 Laterality: left Lung location: unspecified part of lung Pneumonia type: due to unspecified organism SHEBA (acute kidney injury) N17.9 Elevated troponin R79.89 COPD (chronic obstructive pulmonary disease) J44.9 Alcohol abuse F10.10 Paroxysmal A-fib I48.0 Polymyalgia rheumatica M35.3 Severe protein-calorie malnutrition E43 Rheumatoid arthritis M06.9 Unilateral vocal cord paralysis J38.01 Anemia D64.9 DVT prophylaxis Z29.9 (6) Sepsis Acute respiratory failure type: with hypoxia Sepsis acute organ dysfunction status: with acute organ dysfunction Sepsis type: sepsis due to unspecified or ganism Severe sepsis shock status: unspecified (7) Pneumonia Laterality: left Lung location: unspecified part of lung Pneumonia type: due to unspecified organism Qualified Code(s): J18.9 - Pneumonia, unspecified organism
--- NOTE | 2023-08-30 16:39 | XRay Report ---
XR chest 1V portable, XR KUB/Abdomen 1 view HISTORY: 73 years-old Male tachypnea, pneumonia, interval change acute shortness of breath with abdo xavier pain COMPARISON: Chest radiograph and chest CT 08/26/2023 TECHNIQUE: AP view of the chest FINDINGS: CHEST: Cardiac silhouette is enlarged. Emphysema with chronic interstitial coarsening. Patchy bilateral nodu lar consolidative opacities are again noted which are similar to prior. Moderate hemidiaphragm elevat ion. No pneumothorax or large pleural effusion. Degenerative changes of the shoulders and spine. ORIF changes of the ribs. KUB: Residual barium noted within the large bowel. Gaseous distention of both large and small bowel is not ed with small bowel loops measuring up to 4.8 cm. Colonic diverticulosis. Renal shadows are obscured. No free air identified. Lumbar levoscoliosis. IMPRESSION: 1. Emphysema with persistent patchy bilateral nodular consolidative opacities, similar in appearance to chest CT from 08/26/2023. Continued follow-up recommended. 2. Residual barium noted within the large bowel. There is gaseous distention of the large and small b owel which may represent an ileus. Follow-up recommended in order to exclude an obstruction. 3. Cardiomegaly. ACT 112: Negative or not required by law. The above report was generated using voice recognition software. It may contain grammatical, syntax o r spelling errors. Electronically signed by: Juan Carlos Rai M.D. 08/30/2023 4:36 PM
[2023-08-30] MEDS ORDERED: OLANZapine 10 MG/2.1 ML SDV IM STA (20:03)
[2023-08-30] MEDS: METOPROLOL TARTRATE 50 MG TAB PO SCH ×2 (22:04→22:38)
[2023-08-30] MEDS: THIAMINE HCL 200 MG in SODIUM CHLORIDE 0.9% 50 ML IV SCH (22:15)
[2023-08-31] MEDS: ACETAMINOPHEN 325 MG TAB PO PRN (01:23)
[2023-08-31] MEDS ORDERED: OLANZapine 10 MG/2.1 ML SDV IM STA (03:18)
[2023-08-31] MEDS ORDERED: HYDROmorphone INJ 1 MG/ML SYRINGE IV STA (03:39)
[2023-08-31] MEDS ORDERED: LACTATED RINGER'S 500 ML IV ONE (03:58)
--- NOTE | 2023-08-31 04:38 | Communication Note ---
Date of Service: August 31, 2023 Notified by RN of pt's increasing tachypnea and labored breathing w/ diffuse abdominal pain and increasing oxygen requirement. BP reportedly dropped from elevated 160s/100s to 100s/60s over shift. Pt was given Zyprexa 2.5 mg IM x2 earlier in shift for agitation. Dilaudid 1 mg IV given for pain control. Presented to bedside for evaluation where pt was found to be in moderate distress. Diminished breath sounds on auscultation and visible tachypnea w/o accessory muscle use. Abdominal exam significant for no auscultated bowel sounds, firmness, distension and tenderness to palpation. Dry mucous membranes noted. Chart review revealed pt was not seemingly on any form of DVT prophylaxis at the time. Pt's oxygen requirement had increased from 3L oxymask to 15L oxymask -> 10L oxymask while shortly before/during evaluation. Labs ordered- CBC, CMP, procalcitonin, lactate, blood cultures and D-dimer Imaging ordered- STAT CTAP w/o contrast given suspicion for SBO vs bowel perforation, chest CTA given suspicion for PE Interventions ordered- 1L LR bolus for dropping BPs/dehydration Awaiting workup results at present. The decision was made given the acute respiratory failure and acute abdominal pain to do stat CTs on the patient and the CTA of the chest given his acute respiratory failure as the patient was escalated to 100% nonrebreather. Therefore, despite the mild acute kidney risk versus the benefits of CTA were contemplated and decision was made to proceeded with was negative for PE positive for infiltrates and probable metastatic disease. CT of the abdomen pelvis grossly abnormal with significant pneumoperitoneum. General surgery's been consulted patient is being transferred to the ICU. Broad-spectrum IV antibiotic therapy has been ordered in the form of Zosyn. Patient be transferred to the ICU for closer monitoring. Eliquis will be placed on hold anticipating probable need for surgery. Questionable GI bleed on CAT scan patient is being typed and crossed for blood. On my initial exam the patient had tachypnea he was using accessory muscles of respiration. Oxygen was titrated accordingly nebulizer was administered. Lungs were coarse. Abdomen was firm distended negative bowel sounds. The patient was alert and oriented but in significant pain. Assessment 1. Perforated viscus probably small bowel. With pneumoperitoneum. General surgery consulted transferred to the ICU IV Zosyn n.p.o. hold Eliquis for now. 2. Acute hypoxemic respiratory failure multifactorial with pneumonia question aspiration as well as probable metastatic disease on Zosyn. Pulmonary embolism ruled out. Eliquis placed on hold due to impending surgery. SCDs ordered 3. Acute kidney injury mild creatinine 2.18 will hydrate received 1 L bolus now is on maintenance fluids. Monitor renal function carefully he is at risk for worsening ATN.
[2023-08-31] MEDS ORDERED: OPTIRAY 320 125ml IV ONE (04:49)
[2023-08-31 04:51] LABS: Hematocrit (blood only) 35.9 % (42.0-52.0); Hemoglobin 11.6 g/dl (14.0-18.0); Mean Corpuscular Hemoglobin 31.2 pg (25.0-34.0); Mean Corpuscular Hgb Conc 32.3 g/dL (32.0-36.0); Mean Corpuscular Volume 96.5 fL (80.0-100.0); Mean Platelet Volume 9.3 fL (9.4-12.4); Platelet Count 397 K/uL (130-400); RDW Coefficient of Variation 13.7 % (11.5-14.5); RDW Standard Deviation 48.5 fL (36.4-46.3); Red Blood Count 3.72 M/uL (4.70-6.10); White Blood Count 14.19 K/ul (4.8-10.8)
[2023-08-31 05:07] LABS: BUN Creatinine Ratio 16.1 (10-20); Calcium 9.3 mg/dl (8.6-10.3); Est GFR (African American) 33.8 ml/min; Est GFR (Non-African American) 29.2 ml/min; Potassium 4.4 mmol/L (3.5-5.1)
[2023-08-31] MEDS ORDERED: MoRPHine SULFATE 2 MG/ML CARP IV STA (05:10)
[2023-08-31] MEDS ORDERED: LACTATED RINGER'S 1,000 ML IV SCH ×2 (05:15→07:30)
--- NOTE | 2023-08-31 05:15 | CT Scan Report ---
Exam(s): CTA CHEST IV Amt: 117 ml optiray 320 EXAM: CT Angiography Chest With Intravenous Contrast CLINICAL HISTORY: Pulmonary embolus. TECHNIQUE: Axial computed tomographic angiography images of the chest with intravenous contrast. Automated exposure control was utilized for the study. A dose lowering technique was utilized adhering to the principles of ALARA. MIP reconstructed images were created and reviewed. COMPARISON: No relevant prior studies available. FINDINGS: Pulmonary arteries: Unremarkable. No pulmonary embolus. Aorta: Mild atherosclerosis. No thoracic aortic aneurysm. Lungs: Airspace opacities bilaterally may represent multifocal pneumonia and/or aspiration. Bilateral pulmonary masses are most consistent with metastatic disease. These measure up to 3.7 cm. Emphysema. Pleural space: Small bilateral pleural effusions. No pneumothorax. Heart: Unremarkable. No cardiomegaly. No significant pericardial effusion. No evidence of RV dysfunction. Bones/joints: Chronic bilateral rib fractures with postsurgical changes and screws and plates. Soft tissues: Unremarkable. Lymph nodes: Unremarkable. No enlarged lymph nodes. Intraperitoneal space: Marked free fluid in the abdomen is noted. IMPRESSION: 1. No pulmonary embolus. 2. Airspace opacities bilaterally may represent multifocal pneumonia and/or aspiration. 3. Bilateral pulmonary masses are most consistent with metastatic disease. These measure up to 3.7 cm. 4. Emphysema. 5. Small bilateral pleural effusions. 6. Marked free fluid in the abdomen is noted. Please see dedicated CT abdomen and pelvis report regarding the abdominal findings. Electronically signed by: Fay Moffett MD 08/31/23 05:14 AM
[2023-08-31 05:30] LABS: D Dimer 1650 ug/L FEU (0-500)
--- NOTE | 2023-08-31 05:42 | CT Scan Report ---
Exam(s): CT ABDOMEN + PELVIS With Contrast IV Amt: 117 ml optiray 320 EXAM: CT Abdomen and Pelvis With Intravenous Contrast CLINICAL HISTORY: Pain. TECHNIQUE: Axial computed tomography images of the abdomen and pelvis with intravenous contrast. Automated exposure control was utilized for the study. A dose lowering technique was utilized adhering to the principles of ALARA. CONTRAST: Patient received 117 ml optiray 320 of IV contrast COMPARISON: No relevant prior studies available. FINDINGS: Lung bases: Unremarkable. No mass. No consolidation. ABDOMEN: Liver: Unremarkable. No mass. Gallbladder and bile ducts: Unremarkable. No calcified stones. No ductal dilation. Pancreas: Unremarkable. No mass. No ductal dilation. Spleen: Unremarkable. No splenomegaly. Adrenals: Unremarkable. No mass. Kidneys and ureters: Unremarkable. No solid mass. No hydronephrosis. Stomach and bowel: Pooling hyperdensity within the lumen of the distal small bowel. Diverticulosis. See below. No definitive evidence of obstruction. PELVIS: Appendix: No findings to suggest acute appendicitis. Bladder: Unremarkable. No mass. Reproductive: Unremarkable as visualized. ABDOMEN and PELVIS: Intraperitoneal space: Significant free air in the abdomen is concerning for bowel perforation. This is of the small bowel in origin as there is marked thickening of the mid and distal small bowel wall. There is a small amount of free fluid in the abdomen and pelvis which is nonspecific. Question loculated fluid in the right lower quadrant, although this is nonspecific. Bones/joints: There are degenerative changes of the spine. No acute fracture. No dislocation. Soft tissues: Nonspecific body wall edema. Vasculature: Mild atherosclerosis. No abdominal aortic aneurysm. Lymph nodes: Unremarkable. No enlarged lymph nodes. IMPRESSION: 1. Significant free air in the abdomen is concerning for bowel perforation. This is of the small bowel in origin as there is marked thickening of the mid and distal small bowel wall. 2. Pooling hyperdensity within the lumen of the distal small bowel. This is concerning for active GI bleed. 3. There is a small amount of free fluid in the abdomen and pelvis which is nonspecific. Question loculated fluid in the right lower quadrant, although this is nonspecific. 4. Nonspecific body wall edema. 5. Diverticulosis. Communications: 08/31/23 05:34 Call Doctor Regarding Above results, called Dr. Holley on 08/31 05:34 (-05:00) Electronically signed by: Fay Moffett MD 08/31/23 05:41 AM
[2023-08-31] MEDS ORDERED: PIPERACILLIN/TAZOBACTAM 4.5 GM in DEXTROSE 5% MINI-B 100 ML IV ONE (05:45)
[2023-08-31] MEDS: PANTOprazole 40 MG in SYRINGE 0 ML IV SCH ×3 (06:00→19:45)
[2023-08-31] MEDS: PANTOprazole 40 MG TAB PO SCH (06:22)
--- NOTE | 2023-08-31 06:28 | Communication Note ---
Date of Service: August 31, 2023 Received "stat" consult for pneumoperitoneum and "suspected GI bleed". There is nothing to do GI can do for this patient until pneumoperitoneum issue is addressed. We can see patient after surgery if needed.
[2023-08-31] MEDS ORDERED: HYDROCORTISONE SOD 100 MG in SYRINGE 0 ML IV ONE (06:30)
[2023-08-31] MEDS ORDERED: RAPID SEQUENCE INDUCTION BAG ONE (06:33)
[2023-08-31] MEDS ORDERED: PROPOFOL IV EMULSION 10 MG/ML 100 ML VIAL IV ONE ×2 (06:38→15:16)
--- NOTE | 2023-08-31 06:38 | Surgery Consultation ---
Date of Consultation August 31, 2023 Assessment & Plan (1) Pneumoperitoneum of unknown etiology: Assessment: Patient is a 73 years old gentleman who had a CT scan diagnosis perineal possible bowel resection or active GI bleeding. Plan: Based on the patient history physical exam lab finding and CT scan priti paulVu I recommend to do emergency exploratory laparotomy possible bowel resection possible stoma. Did the talk to patient daughter Hortencia Porras on the phone. Discussion about benefit the risk and alternate of the procedure. I also indicates the risks may include but not limited such as bleeding, infection, injury or other organ,abscess, sepsis, incisional hernia, multiple organ failure, myocardial infarction, DVT, stroke, anastomotic leak, and . Patient daughter understood. She agreed with the surgery. She gave consent on the phone. I answered all questions. Patient was a transfer to ICU resuscitation same time to prepare to go to the OR as soon as possible. Type and screen, IV antibiotic. History of Present Illness Reason for Consultation: Pneumoperitoneum Requesting Physician: Dr. Talon Metcalf Attending Physician: Mayuri Bolton MD History of Present Illness CC: Pneumoperitoneum HPI: Patient is a 73 years old gentleman is a past medical history significant for small bowel obstruction, , COPD, chronic kidney disease stage IV, A-fib, patient is on Eliquis. Patient was admitted to hospital for respiratory distress 5 days ago. Earlier this morning I got a call for consult this patient had a CT scan finding pneumoperitoneum possible active GI bleeding. I Saw patient right away. Patient was a significant distress, on O2 mask, T 36.7, HR 92, RR 42, BP 144/100. barely response. I reviewed labs, and CT scan-IMPRESSION: 1. Significant free air in the abdomen is concerning for bowel perforation. This is of the small bowel in origin as there is marked thickening of the mid and distal small bowel wall. 2. Pooling hyperdensity within the lumen of the distal small bowel. This is concerning for active GI bleed. 3. There is a small amount of free fluid in the abdomen and pelvis which is nonspecific. Question loculated fluid in the right lower quadrant, although this is nonspecific. 4. Nonspecific body wall edema. 5. Diverticulosis. Allergies Allergy/AdvReac Type Severity Reaction Status Date / Time bee venom protein (honey bee) Allergy Severe Anaphylaxis Verified 08/26/23 19:49 ibuprofen [From Motrin] AdvReac Mild Rash Verified 08/26/23 19:13 Home Medications Medication Instructions Recorded Confirmed Type acetaminophen 325 mg tablet 650 mg PO Q4H PRN Pain (Scale 08/26/23 08/26/23 History (Tylenol) Score 1-3) albuterol sulfate 90 mcg/actuation 1 puff inhalation Q6H PRN Wheezing 08/26/23 08/26/23 History aerosol inhaler amiodarone 200 mg tablet 200 mg PO DAILY 08/26/23 08/26/23 History amiodarone 200 mg tablet 200 mg PO Q12H 08/26/23 08/26/23 History amiodarone 200 mg tablet 400 mg PO BID 08/26/23 08/26/23 History apixaban 5 mg tablet (Eliquis) 5 mg PO Q12H 08/26/23 08/26/23 History bisacodyl 10 mg rectal suppository 10 mg ID DAILY PRN Constipation 08/26/23 08/26/23 History cholecalciferol (vitamin D3) 50 50 mcg PO DAILY 08/26/23 08/26/23 History mcg (2,000 unit) capsule (Vitamin D3) dextrose 40 % oral gel 1 ea PO DIRECTED PRN 08/26/23 08/26/23 History Hypoglycemia docusate sodium 100 mg capsule 100 mg PO BID 08/26/23 08/26/23 History hydroxychloroquine 200 mg tablet 200 mg PO Q12H 08/26/23 08/26/23 History ipratropium 0.5 mg-albuterol 3 mg 3 ml inhalation Q4H 08/26/23 08/26/23 History (2.5 mg base)/3 mL nebulization soln magnesium hydroxide 400 mg/5 mL 30 ml PO DAILY PRN Constipation 08/26/23 08/26/23 History oral suspension (Milk of Magnesia) metoprolol tartrate 25 mg tablet 25 mg PO Q12H 08/26/23 08/26/23 History multivitamin with minerals 1 tab PO DAILY 08/26/23 08/26/23 History nortriptyline 25 mg capsule 50 mg PO DAILY 08/26/23 08/26/23 History ondansetron HCl 4 mg tablet 4 mg PO Q4H PRN NAUSEA/VOMITING 08/26/23 08/26/23 History pantoprazole 40 mg tablet,delayed 40 mg PO DAILYBB 08/26/23 08/26/23 History release polyethylene glycol 3350 17 17 g PO QDL PRN Constipation 08/26/23 08/26/23 History gram/dose oral powder (Miralax) prednisone 20 mg tablet 40 mg PO DAILY 08/26/23 08/26/23 History sennosides 8.6 mg-docusate sodium 1 tab-cap PO QDL PRN Constipation 08/26/23 08/26/23 History 50 mg tablet (Senokot-S) sodium phosphates 19 gram-7 118 ml ID DAILY PRN Constipation 08/26/23 08/26/23 History gram/118 mL enema (Fleet Enema) tizanidine 2 mg tablet 2 mg PO TID PRN MUSCLE SPASMS 08/26/23 08/26/23 History tramadol 50 mg tablet 50 mg PO Q6H PRN Pain (Scale Score 08/26/23 08/26/23 History 4-6) tramadol 50 mg tablet 100 mg PO Q6H PRN Pain (Scale 08/26/23 08/26/23 History Score 7-10) umeclidinium 62.5 mcg/actuation 1 inh inhalation DAILY 08/26/23 08/26/23 History blister powder for inhalation (Incruse Ellipta) zinc sulfate 50 mg zinc (220 mg) 50 mg PO DAILY 08/26/23 08/26/23 History capsule Patient History Medical History (Updated 08/31/23 @ 07:05 by Ken Sorenson MD) Abnormal CT scan, chest CKD (chronic kidney disease), stage IV Acute metabolic encephalopathy Severe protein-calorie malnutrition COPD (chronic obstructive pulmonary disease) Polymyalgia rheumatica Stress-induced cardiomyopathy SHEBA (acute kidney injury) Alcohol abuse Paroxysmal A-fib Aspiration pneumonia Social History Smoking Status: Former smoker Second Hand Exposure: No; Do You Dip or Chew Tobacco: No; Tobacco Cessation Education Requested by Patient: No Hx Alcohol Use: Yes Alcohol type: beer and hard liquor Hx Substance Use: No Preferred Language: Hebrew Communication Ability: Impaired Office Helper Required: No Beliefs That Will Affect Care: None Current Living Situation: Alone Current Living Situation Comment: Lives alone at [facility] Other Information That Helps Us Care for You: No Feels Safe at Home: Hesitant to Answer Safety Concerns: Feels Safe At This Time Assistive Devices: Cane Review of Systems Constitutional: as per Subjective / HPI Eyes: as per Subjective / HPI Respiratory: COPD, respiratory distress Cardiovascular: Additional Comments: A-fib Gastrointestinal: Small bowel obstruction Neurologic: as per Subjective / HPI Psychiatric: as per Subjective / HPI Endocrine: as per Subjective / HPI Hematologic / Lymphatic: Anemia Physical Exam Constitutional: hard to response Eyes: PERRL, conjunctivae normal, anicteric sclerae Neck: trachea midline, no thyromegaly Respiratory: Auscultation: lungs clear to auscultation bilaterally Cardiovascular: Rate/Rhythm: + irregularly irregular Gastrointestinal (Abdomen): distend abdomen, hard, BS negative,. Neurologic: not alert Results & Data Vital Signs (Past 12 Hours) Vital Signs Temp Pulse Pulse Pulse Resp BP BP 08/31/23 06:28 36.7 C 92 H 42 H 144/100 H 08/31/23 05:34 36 H 137/77 08/31/23 04:53 93 H 22 135/87 08/31/23 04:03 95 H 37 H 123/88 08/31/23 03:49 95 H 39 H 105/67 08/31/23 03:13 36.7 C 36 H 145/91 H 08/31/23 01:55 92 H 08/30/23 23:00 08/30/23 22:57 37.2 C 96 H 18 189/107 H 08/30/23 21:26 167/93 H 08/30/23 20:00 08/30/23 20:00 165/102 H 08/30/23 19:41 91 H 18 08/30/23 19:31 36.7 C 92 H 20 178/110 H Pulse Ox Pulse Ox O2 Del Method O2 Del Method O2 Flow Rate 08/31/23 06:28 100 Oxymask 5 08/31/23 05:34 95 Oxymask 5 08/31/23 04:53 100 Oxymask 5 08/31/23 04:03 100 Oxymask 10 08/31/23 03:49 08/31/23 03:13 94 Nasal Cannula 3 08/31/23 01:55 08/30/23 23:00 95 Nasal Cannula 08/30/23 22:57 94 Nasal Cannula 2 08/30/23 21:26 08/30/23 20:00 Nasal Cannula 08/30/23 20:00 08/30/23 19:41 92 Nasal Cannula 2 08/30/23 19:31 93 Nasal Cannula 2 Laboratory Results Lab Results 08/26/23 08/26/23 08/26/23 Range/Units 17:27 17:38 17:47 WBC 17.19 H (4.8-10.8) K/ul RBC 3.31 L (4.70-6.10) M/uL Hgb 10.4 L (14.0-18.0) g/dl POC Hgb 10.9 L 11.6 L (14.0-18.0) g/dl Hct 31.4 L (42.0-52.0) % POC Hct 32 L 34 L (42-52) % MCV 94.9 (80.0-100.0) fL MCH 31.4 (25.0-34.0) pg MCHC 33.1 (32.0-36.0) g/dL RDW Std Deviation 46.5 H (36.4-46.3) fL RDW Coeff of Jesse 13.4 (11.5-14.5) % Plt Count 373 (130-400) K/uL MPV 9.7 (9.4-12.4) fL Immature Gran % (Auto) 1.2 % Neut % (Auto) 87.6 % Lymph % (Auto) 5.1 % [place] % (Auto) 5.9 % Eos % (Auto) 0.0 % Baso % (Auto) 0.2 % Neut # (Auto) 15.06 H (1.40-6.50) K/uL Lymph # (Auto) 0.88 L (1.20-3.40) K/uL [place] # (Auto) 1.01 H (0.11-0.59) K/uL Eos # (Auto) 0.00 (0.00-0.50) K/uL Baso # (Auto) 0.04 (0.00-0.20) K/uL Immature Gran # (Auto) 0.20 (0.01-0.20) K/uL RBC Morphology PT 14.3 H (9.0-12.0) Seconds INR 1.3 H (0.9-1.1) APTT 27 (21-31) Seconds PTT Ratio 1.0 D-Dimer (0-500) ug/L FEU POC pH 7.44 (7.35-7.45) POC pCO2 35 (35-46) mmHg POC pO2 135 H (80-95) mmHg POC HCO3 23 (19-24) lachelle/L POC Total CO2 24 26 (24-31) mmol/L POC Base Excess -1.0 (-9-1.8) lachelle/L ABG pH (7.35-7.45) ABG pCO2 (35-46) mmHg ABG pO2 (80-95) mmHg ABG HCO3 (19-24) mmol/L POC ABG O2 Sat 99.0 H (90-95) % ABG O2 Saturation (90-95) % ABG Base Excess (-9-1.8) mEq/L Mikey Test (Pos) Oxygen Given POC Sodium 140 140 (135-144) mmol/L Sodium 141 (136-145) mmol/L POC Potassium 4.1 4.4 (3.3-5.0) mmol/L Potassium 3.9 (3.5-5.1) mmol/L POC Chloride 100 L (101-112) mmol/L Chloride 102 (98-107) mmol/L Carbon Dioxide 23 (21-32) mmol/L Anion Gap 16 H (3-11) POC Anion Gap 19.0 (16-25) mmol/L POC BUN 50 H (7-18) mg/dl BUN 57 H (6-23) mg/dl Creatinine 2.43 H (0.6-1.4) mg/dl POC Creatinine 2.7 H (0.6-1.3) mg/dl Est Cr Clr Drug Dosing Not Reportable Est GFR ( Amer) 29.7 ml/min Est GFR (Non-Af Amer) 25.6 ml/min BUN/Creatinine Ratio 23.5 H (10-20) Glucose 137 H (70-99(Fasting)) mg/dl POC Glucose (other) 134 H (70-99) mg/dl Lactate 2.7 H* (0.4-2.0) mmol/L Calcium 9.4 (8.6-10.3) mg/dl POC Ioniz Calcium José Antonio 1.14 (1.12-1.32) mmol/l Magnesium 2.0 (1.7-2.4) mg/dl Iron (35-175) mcg/dl TIBC (250-450) mcg/dl Unsaturated IBC (155-355) mcg/dl Transferrin % Sat (20-50) % Ferritin (8-388) ng/ml Total Bilirubin 0.6 (0.2-1.0) mg/dl Direct Bilirubin 0.2 (0-0.2) mg/dl AST 25 (13-39) U/L ALT 37 (7-52) U/L Alkaline Phosphatase 281 H (34-104) U/L Troponin I High Sens 79.5 H* (0-20) pg/ml Total Protein 6.9 (6.0-8.3) gm/dl Albumin 3.7 (3.4-5.0) gm/dl Vitamin B12 (180-914) pg/ml Folate (>5.38) ng/ml Procalcitonin 0.34 (0-0.5) ng/ml Urine Color Urine Appearance (Clear) Urine pH (4.5-7.5) Ur Specific [place] (1.000-1.030) Urine Protein (Negative) Urine Glucose (UA) (Negative) Urine Ketones (Negative) Urine Blood (Negative) Urine Nitrite (Negative) Urine Bilirubin (Negative) Urine Urobilinogen (Negative) Ur Leukocyte Esterase (Negative) Urine WBC (Auto) Urine RBC (Auto) U Hyaline Cast (Auto) U Epithel Cells (Auto) Urine Bacteria (Auto) Ur Renal Epithelial Cell Urine Crystals Calcium Oxalate Crystal Uric Acid Crystals Triple Phos Crystals Other Crystals Amorphous Sediment Granular Casts Waxy Casts RBC Casts WBC Casts Pathogenic Casts Other Casts Urine Mucus Urine Other Urine Trichomonas Urine Yeast Urine Sperm Ur Oval Fat Bodies Ur Culture Indicated? Nasal Screen MRSA (PCR) (Negative) Adenovirus (PCR) (NotDetected) B. pertussis DNA (PCR) (NotDetected) B.parapertussis DNA PCR (NotDetected) C. pneumoniae DNA (PCR) (NotDetected) Coronavirus OC43 (PCR) (NotDetected) Coronavirus HKU1 (PCR) (NotDetected) Coronavirus 229E (PCR) (NotDetected) SARS-CoV-2 (PCR) (NotDetected) Coronavirus NL63 (PCR) (NotDetected) Human Metapneumovir PCR (NotDetected) Influenza Type A (PCR) (NotDetected) Influenza Type B (PCR) (NotDetected) M. pneumoniae (PCR) (NotDetected) Parainfluenza 1 (PCR) (NotDetected) Parainfluenza 2 (PCR) (NotDetected) Parainfluenza 3 (PCR) (NotDetected) Parainfluenza 4 (PCR) (NotDetected) RSV (PCR) (NotDetected) Entero/Rhino (PCR) (NotDetected) 08/26/23 08/26/23 08/26/23 Range/Units 18:26 19:39 19:40 WBC (4.8-10.8) K/ul RBC (4.70-6.10) M/uL Hgb (14.0-18.0) g/dl POC Hgb (14.0-18.0) g/dl Hct (42.0-52.0) % POC Hct (42-52) % MCV (80.0-100.0) fL MCH (25.0-34.0) pg MCHC (32.0-36.0) g/dL RDW Std Deviation (36.4-46.3) fL RDW Coeff of Jesse (11.5-14.5) % Plt Count (130-400) K/uL MPV (9.4-12.4) fL Immature Gran % (Auto) % Neut % (Auto) % Lymph % (Auto) % [place] % (Auto) % Eos % (Auto) % Baso % (Auto) % Neut # (Auto) (1.40-6.50) K/uL Lymph # (Auto) (1.20-3.40) K/uL [place] # (Auto) (0.11-0.59) K/uL Eos # (Auto) (0.00-0.50) K/uL Baso # (Auto) (0.00-0.20) K/uL Immature Gran # (Auto) (0.01-0.20) K/uL RBC Morphology PT (9.0-12.0) Seconds INR (0.9-1.1) APTT (21-31) Seconds PTT Ratio D-Dimer (0-500) ug/L FEU POC pH (7.35-7.45) POC pCO2 (35-46) mmHg POC pO2 (80-95) mmHg POC HCO3 (19-24) lachelle/L POC Total CO2 (24-31) mmol/L POC Base Excess (-9-1.8) lachelle/L ABG pH (7.35-7.45) ABG pCO2 (35-46) mmHg ABG pO2 (80-95) mmHg ABG HCO3 (19-24) mmol/L POC ABG O2 Sat (90-95) % ABG O2 Saturation (90-95) % ABG Base Excess (-9-1.8) mEq/L Mikey Test (Pos) Oxygen Given POC Sodium (135-144) mmol/L Sodium (136-145) mmol/L POC Potassium (3.3-5.0) mmol/L Potassium (3.5-5.1) mmol/L POC Chloride (101-112) mmol/L Chloride (98-107) mmol/L Carbon Dioxide (21-32) mmol/L Anion Gap (3-11) POC Anion Gap (16-25) mmol/L POC BUN (7-18) mg/dl BUN (6-23) mg/dl Creatinine (0.6-1.4) mg/dl POC Creatinine (0.6-1.3) mg/dl Est Cr Clr Drug Dosing Est GFR ( Amer) ml/min Est GFR (Non-Af Amer) ml/min BUN/Creatinine Ratio (10-20) Glucose (70-99(Fasting)) mg/dl POC Glucose (other) (70-99) mg/dl Lactate 2.9 H* (0.4-2.0) mmol/L Calcium (8.6-10.3) mg/dl POC Ioniz Calcium José Antonio (1.12-1.32) mmol/l Magnesium (1.7-2.4) mg/dl Iron (35-175) mcg/dl TIBC (250-450) mcg/dl Unsaturated IBC (155-355) mcg/dl Transferrin % Sat (20-50) % Ferritin (8-388) ng/ml Total Bilirubin (0.2-1.0) mg/dl Direct Bilirubin (0-0.2) mg/dl AST (13-39) U/L ALT (7-52) U/L Alkaline Phosphatase (34-104) U/L Troponin I High Sens 75.8 H* (0-20) pg/ml Total Protein (6.0-8.3) gm/dl Albumin (3.4-5.0) gm/dl Vitamin B12 (180-914) pg/ml Folate (>5.38) ng/ml Procalcitonin (0-0.5) ng/ml Urine Color Urine Appearance (Clear) Urine pH (4.5-7.5) Ur Specific [place] (1.000-1.030) Urine Protein (Negative) Urine Glucose (UA) (Negative) Urine Ketones (Negative) Urine Blood (Negative) Urine Nitrite (Negative) Urine Bilirubin (Negative) Urine Urobilinogen (Negative) Ur Leukocyte Esterase (Negative) Urine WBC (Auto) Urine RBC (Auto) U Hyaline Cast (Auto) U Epithel Cells (Auto) Urine Bacteria (Auto) Ur Renal Epithelial Cell Urine Crystals Calcium Oxalate Crystal Uric Acid Crystals Triple Phos Crystals Other Crystals Amorphous Sediment Granular Casts Waxy Casts RBC Casts WBC Casts Pathogenic Casts Other Casts Urine Mucus Urine Other Urine Trichomonas Urine Yeast Urine Sperm Ur Oval Fat Bodies Ur Culture Indicated? Nasal Screen MRSA (PCR) (Negative) Adenovirus (PCR) Not Detected (NotDetected) B. pertussis DNA (PCR) Not Detected (NotDetected) B.parapertussis DNA PCR Not Detected (NotDetected) C. pneumoniae DNA (PCR) Not Detected (NotDetected) Coronavirus OC43 (PCR) Not Detected (NotDetected) Coronavirus HKU1 (PCR) Not Detected (NotDetected) Coronavirus 229E (PCR) Not Detected (NotDetected) SARS-CoV-2 (PCR) Not Detected (NotDetected) Coronavirus NL63 (PCR) Not Detected (NotDetected) Human Metapneumovir PCR Not Detected (NotDetected) Influenza Type A (PCR) Not Detected (NotDetected) Influenza Type B (PCR) Not Detected (NotDetected) M. pneumoniae (PCR) Not Detected (NotDetected) Parainfluenza 1 (PCR) Not Detected (NotDetected) Parainfluenza 2 (PCR) Not Detected (NotDetected) Parainfluenza 3 (PCR) Not Detected (NotDetected) Parainfluenza 4 (PCR) Not Detected (NotDetected) RSV (PCR) Not Detected (NotDetected) Entero/Rhino (PCR) Not Detected (NotDetected) 08/26/23 08/26/23 08/27/23 Range/Units 21:22 21:24 00:07 WBC (4.8-10.8) K/ul RBC (4.70-6.10) M/uL Hgb (14.0-18.0) g/dl POC Hgb (14.0-18.0) g/dl Hct (42.0-52.0) % POC Hct (42-52) % MCV (80.0-100.0) fL MCH (25.0-34.0) pg MCHC (32.0-36.0) g/dL RDW Std Deviation (36.4-46.3) fL RDW Coeff of Jesse (11.5-14.5) % Plt Count (130-400) K/uL MPV (9.4-12.4) fL Immature Gran % (Auto) % Neut % (Auto) % Lymph % (Auto) % [place] % (Auto) % Eos % (Auto) % Baso % (Auto) % Neut # (Auto) (1.40-6.50) K/uL Lymph # (Auto) (1.20-3.40) K/uL [place] # (Auto) (0.11-0.59) K/uL Eos # (Auto) (0.00-0.50) K/uL Baso # (Auto) (0.00-0.20) K/uL Immature Gran # (Auto) (0.01-0.20) K/uL RBC Morphology PT (9.0-12.0) Seconds INR (0.9-1.1) APTT (21-31) Seconds PTT Ratio D-Dimer (0-500) ug/L FEU POC pH (7.35-7.45) POC pCO2 (35-46) mmHg POC pO2 (80-95) mmHg POC HCO3 (19-24) lachelle/L POC Total CO2 (24-31) mmol/L POC Base Excess (-9-1.8) lachelle/L ABG pH 7.41 (7.35-7.45) ABG pCO2 37 (35-46) mmHg ABG pO2 124 H (80-95) mmHg ABG HCO3 24 (19-24) mmol/L POC ABG O2 Sat (90-95) % ABG O2 Saturation 98.3 H (90-95) % ABG Base Excess -0.8 (-9-1.8) mEq/L Mikey Test Pos (Pos) Oxygen Given 55% POC Sodium (135-144) mmol/L Sodium (136-145) mmol/L POC Potassium (3.3-5.0) mmol/L Potassium (3.5-5.1) mmol/L POC Chloride (101-112) mmol/L Chloride (98-107) mmol/L Carbon Dioxide (21-32) mmol/L Anion Gap (3-11) POC Anion Gap (16-25) mmol/L POC BUN (7-18) mg/dl BUN (6-23) mg/dl Creatinine (0.6-1.4) mg/dl POC Creatinine (0.6-1.3) mg/dl Est Cr Clr Drug Dosing Est GFR ( Amer) ml/min Est GFR (Non-Af Amer) ml/min BUN/Creatinine Ratio (10-20) Glucose (70-99(Fasting)) mg/dl POC Glucose (other) (70-99) mg/dl Lactate 1.1 (0.4-2.0) mmol/L Calcium (8.6-10.3) mg/dl POC Ioniz Calcium José Antonio (1.12-1.32) mmol/l Magnesium (1.7-2.4) mg/dl Iron (35-175) mcg/dl TIBC (250-450) mcg/dl Unsaturated IBC (155-355) mcg/dl Transferrin % Sat (20-50) % Ferritin (8-388) ng/ml Total Bilirubin (0.2-1.0) mg/dl Direct Bilirubin (0-0.2) mg/dl AST (13-39) U/L ALT (7-52) U/L Alkaline Phosphatase (34-104) U/L Troponin I High Sens (0-20) pg/ml Total Protein (6.0-8.3) gm/dl Albumin (3.4-5.0) gm/dl Vitamin B12 (180-914) pg/ml Folate (>5.38) ng/ml Procalcitonin (0-0.5) ng/ml Urine Color Yellow Urine Appearance Cloudy A (Clear) Urine pH 5.5 (4.5-7.5) Ur Specific [place] >= 1.030 (1.000-1.030) Urine Protein 3+ H (Negative) Urine Glucose (UA) Negative (Negative) Urine Ketones Negative (Negative) Urine Blood 3+ H (Negative) Urine Nitrite Negative (Negative) Urine Bilirubin 1+ H (Negative) Urine Urobilinogen Negative (Negative) Ur Leukocyte Esterase Trace H (Negative) Urine WBC (Auto) Cancelled Urine RBC (Auto) Cancelled U Hyaline Cast (Auto) Cancelled U Epithel Cells (Auto) Cancelled Urine Bacteria (Auto) Cancelled Ur Renal Epithelial Cell Cancelled Urine Crystals Cancelled Calcium Oxalate Crystal Cancelled Uric Acid Crystals Cancelled Triple Phos Crystals Cancelled Other Crystals Cancelled Amorphous Sediment Cancelled Granular Casts Cancelled Waxy Casts Cancelled RBC Casts Cancelled WBC Casts Cancelled Pathogenic Casts Cancelled Other Casts Cancelled Urine Mucus Cancelled Urine Other Cancelled Urine Trichomonas Cancelled Urine Yeast Cancelled Urine Sperm Cancelled Ur Oval Fat Bodies Cancelled Ur Culture Indicated? Cancelled Nasal Screen MRSA (PCR) Negative (Negative) Adenovirus (PCR) (NotDetected) B. pertussis DNA (PCR) (NotDetected) B.parapertussis DNA PCR (NotDetected) C. pneumoniae DNA (PCR) (NotDetected) Coronavirus OC43 (PCR) (NotDetected) Coronavirus HKU1 (PCR) (NotDetected) Coronavirus 229E (PCR) (NotDetected) SARS-CoV-2 (PCR) (NotDetected) Coronavirus NL63 (PCR) (NotDetected) Human Metapneumovir PCR (NotDetected) Influenza Type A (PCR) (NotDetected) Influenza Type B (PCR) (NotDetected) M. pneumoniae (PCR) (NotDetected) Parainfluenza 1 (PCR) (NotDetected) Parainfluenza 2 (PCR) (NotDetected) Parainfluenza 3 (PCR) (NotDetected) Parainfluenza 4 (PCR) (NotDetected) RSV (PCR) (NotDetected) Entero/Rhino (PCR) (NotDetected) 08/27/23 08/27/23 08/27/23 Range/Units 01:27 06:04 06:08 WBC 18.54 H (4.8-10.8) K/ul RBC 2.88 L (4.70-6.10) M/uL Hgb 9.0 L (14.0-18.0) g/dl POC Hgb (14.0-18.0) g/dl Hct 27.4 L (42.0-52.0) % POC Hct (42-52) % MCV 95.1 (80.0-100.0) fL MCH 31.3 (25.0-34.0) pg MCHC 32.8 (32.0-36.0) g/dL RDW Std Deviation 46.9 H (36.4-46.3) fL RDW Coeff of Jesse 13.4 (11.5-14.5) % Plt Count 267 (130-400) K/uL MPV 9.5 (9.4-12.4) fL Immature Gran % (Auto) 0.8 % Neut % (Auto) 94.0 % Lymph % (Auto) 2.5 % [place] % (Auto) 2.5 % Eos % (Auto) 0.0 % Baso % (Auto) 0.2 % Neut # (Auto) 17.43 H (1.40-6.50) K/uL Lymph # (Auto) 0.47 L (1.20-3.40) K/uL [place] # (Auto) 0.47 (0.11-0.59) K/uL Eos # (Auto) 0.00 (0.00-0.50) K/uL Baso # (Auto) 0.03 (0.00-0.20) K/uL Immature Gran # (Auto) 0.14 (0.01-0.20) K/uL RBC Morphology PT (9.0-12.0) Seconds INR (0.9-1.1) APTT (21-31) Seconds PTT Ratio D-Dimer (0-500) ug/L FEU POC pH (7.35-7.45) POC pCO2 (35-46) mmHg POC pO2 (80-95) mmHg POC HCO3 (19-24) lachelle/L POC Total CO2 (24-31) mmol/L POC Base Excess (-9-1.8) lachelle/L ABG pH 7.42 7.44 (7.35-7.45) ABG pCO2 36 32 L (35-46) mmHg ABG pO2 81 86 (80-95) mmHg ABG HCO3 23 22 (19-24) mmol/L POC ABG O2 Sat (90-95) % ABG O2 Saturation 96.2 H 97.2 H (90-95) % ABG Base Excess -0.7 -1.6 (-9-1.8) mEq/L Mikey Test Pos Pos (Pos) Oxygen Given 4L 5L POC Sodium (135-144) mmol/L Sodium 142 (136-145) mmol/L POC Potassium (3.3-5.0) mmol/L Potassium 3.8 (3.5-5.1) mmol/L POC Chloride (101-112) mmol/L Chloride 108 H (98-107) mmol/L Carbon Dioxide 22 (21-32) mmol/L Anion Gap 12 H (3-11) POC Anion Gap (16-25) mmol/L POC BUN (7-18) mg/dl BUN 68 H (6-23) mg/dl Creatinine 2.75 H D (0.6-1.4) mg/dl POC Creatinine (0.6-1.3) mg/dl Est Cr Clr Drug Dosing 21.7 Est GFR ( Amer) 25.5 ml/min Est GFR (Non-Af Amer) 22.0 ml/min BUN/Creatinine Ratio 24.7 H (10-20) Glucose 145 H (70-99(Fasting)) mg/dl POC Glucose (other) (70-99) mg/dl Lactate (0.4-2.0) mmol/L Calcium 8.5 L (8.6-10.3) mg/dl POC Ioniz Calcium José Antonio (1.12-1.32) mmol/l Magnesium 1.7 (1.7-2.4) mg/dl Iron (35-175) mcg/dl TIBC (250-450) mcg/dl Unsaturated IBC (155-355) mcg/dl Transferrin % Sat (20-50) % Ferritin (8-388) ng/ml Total Bilirubin (0.2-1.0) mg/dl Direct Bilirubin (0-0.2) mg/dl AST (13-39) U/L ALT (7-52) U/L Alkaline Phosphatase (34-104) U/L Troponin I High Sens 76.2 H* (0-20) pg/ml Total Protein (6.0-8.3) gm/dl Albumin (3.4-5.0) gm/dl Vitamin B12 (180-914) pg/ml Folate (>5.38) ng/ml Procalcitonin (0-0.5) ng/ml Urine Color Urine Appearance (Clear) Urine pH (4.5-7.5) Ur Specific [place] (1.000-1.030) Urine Protein (Negative) Urine Glucose (UA) (Negative) Urine Ketones (Negative) Urine Blood (Negative) Urine Nitrite (Negative) Urine Bilirubin (Negative) Urine Urobilinogen (Negative) Ur Leukocyte Esterase (Negative) Urine WBC (Auto) Urine RBC (Auto) U Hyaline Cast (Auto) U Epithel Cells (Auto) Urine Bacteria (Auto) Ur Renal Epithelial Cell Urine Crystals Calcium Oxalate Crystal Uric Acid Crystals Triple Phos Crystals Other Crystals Amorphous Sediment Granular Casts Waxy Casts RBC Casts WBC Casts Pathogenic Casts Other Casts Urine Mucus Urine Other Urine Trichomonas Urine Yeast Urine Sperm Ur Oval Fat Bodies Ur Culture Indicated? Nasal Screen MRSA (PCR) (Negative) Adenovirus (PCR) (NotDetected) B. pertussis DNA (PCR) (NotDetected) B.parapertussis DNA PCR (NotDetected) C. pneumoniae DNA (PCR) (NotDetected) Coronavirus OC43 (PCR) (NotDetected) Coronavirus HKU1 (PCR) (NotDetected) Coronavirus 229E (PCR) (NotDetected) SARS-CoV-2 (PCR) (NotDetected) Coronavirus NL63 (PCR) (NotDetected) Human Metapneumovir PCR (NotDetected) Influenza Type A (PCR) (NotDetected) Influenza Type B (PCR) (NotDetected) M. pneumoniae (PCR) (NotDetected) Parainfluenza 1 (PCR) (NotDetected) Parainfluenza 2 (PCR) (NotDetected) Parainfluenza 3 (PCR) (NotDetected) Parainfluenza 4 (PCR) (NotDetected) RSV (PCR) (NotDetected) Entero/Rhino (PCR) (NotDetected) 08/28/23 08/29/23 08/30/23 Range/Units 07:17 05:54 05:39 WBC 14.95 H 13.31 H 16.01 H (4.8-10.8) K/ul RBC 3.01 L 3.03 L 3.31 L (4.70-6.10) M/uL Hgb 9.3 L 9.5 L 10.3 L (14.0-18.0) g/dl POC Hgb (14.0-18.0) g/dl Hct 29.4 L 30.1 L 31.7 L (42.0-52.0) % POC Hct (42-52) % MCV 97.7 99.3 95.8 (80.0-100.0) fL MCH 30.9 31.4 31.1 (25.0-34.0) pg MCHC 31.6 L 31.6 L 32.5 (32.0-36.0) g/dL RDW Std Deviation 48.7 H 48.3 H 47.5 H (36.4-46.3) fL RDW Coeff of Jesse 13.6 13.6 13.6 (11.5-14.5) % Plt Count 252 242 260 (130-400) K/uL MPV 9.3 L 9.6 9.3 L (9.4-12.4) fL Immature Gran % (Auto) 0.7 0.5 0.7 % Neut % (Auto) 93.6 91.4 87.3 % Lymph % (Auto) 2.3 3.6 5.2 % [place] % (Auto) 3.3 4.4 6.5 % Eos % (Auto) 0.0 0.0 0.2 % Baso % (Auto) 0.1 0.1 0.1 % Neut # (Auto) 14.00 H 12.17 H 13.95 H (1.40-6.50) K/uL Lymph # (Auto) 0.34 L 0.48 L 0.84 L (1.20-3.40) K/uL [place] # (Auto) 0.49 0.59 1.04 H (0.11-0.59) K/uL Eos # (Auto) 0.00 0.00 0.04 (0.00-0.50) K/uL Baso # (Auto) 0.02 0.01 0.02 (0.00-0.20) K/uL Immature Gran # (Auto) 0.10 0.06 0.12 (0.01-0.20) K/uL RBC Morphology Unremarkable Unremarkable PT (9.0-12.0) Seconds INR (0.9-1.1) APTT (21-31) Seconds PTT Ratio D-Dimer (0-500) ug/L FEU POC pH (7.35-7.45) POC pCO2 (35-46) mmHg POC pO2 (80-95) mmHg POC HCO3 (19-24) lachelle/L POC Total CO2 (24-31) mmol/L POC Base Excess (-9-1.8) lachelle/L ABG pH (7.35-7.45) ABG pCO2 (35-46) mmHg ABG pO2 (80-95) mmHg ABG HCO3 (19-24) mmol/L POC ABG O2 Sat (90-95) % ABG O2 Saturation (90-95) % ABG Base Excess (-9-1.8) mEq/L Mikey Test (Pos) Oxygen Given POC Sodium (135-144) mmol/L Sodium 141 141 140 (136-145) mmol/L POC Potassium (3.3-5.0) mmol/L Potassium 3.4 L 4.1 D 4.5 (3.5-5.1) mmol/L POC Chloride (101-112) mmol/L Chloride 107 108 H 108 H (98-107) mmol/L Carbon Dioxide 25 27 23 (21-32) mmol/L Anion Gap 9 6 9 (3-11) POC Anion Gap (16-25) mmol/L POC BUN (7-18) mg/dl BUN 53 H 40 H 36 H (6-23) mg/dl Creatinine 2.02 H D 1.67 H D 1.98 H D (0.6-1.4) mg/dl POC Creatinine (0.6-1.3) mg/dl Est Cr Clr Drug Dosing 30.4 36.5 30.8 Est GFR ( Amer) 37.1 46.7 38.0 ml/min Est GFR (Non-Af Amer) 32.0 40.3 32.8 ml/min BUN/Creatinine Ratio 26.2 H 24.0 H 18.2 (10-20) Glucose 126 H 102 H 95 (70-99(Fasting)) mg/dl POC Glucose (other) (70-99) mg/dl Lactate (0.4-2.0) mmol/L Calcium 9.1 9.0 9.2 (8.6-10.3) mg/dl POC Ioniz Calcium José Antonio (1.12-1.32) mmol/l Magnesium 1.7 1.7 (1.7-2.4) mg/dl Iron 31 L (35-175) mcg/dl TIBC 176 L (250-450) mcg/dl Unsaturated IBC 145 L (155-355) mcg/dl Transferrin % Sat 18 L (20-50) % Ferritin 197.8 (8-388) ng/ml Total Bilirubin (0.2-1.0) mg/dl Direct Bilirubin (0-0.2) mg/dl AST (13-39) U/L ALT (7-52) U/L Alkaline Phosphatase (34-104) U/L Troponin I High Sens (0-20) pg/ml Total Protein (6.0-8.3) gm/dl Albumin (3.4-5.0) gm/dl Vitamin B12 851 (180-914) pg/ml Folate > 22.30 (>5.38) ng/ml Procalcitonin (0-0.5) ng/ml Urine Color Urine Appearance (Clear) Urine pH (4.5-7.5) Ur Specific [place] (1.000-1.030) Urine Protein (Negative) Urine Glucose (UA) (Negative) Urine Ketones (Negative) Urine Blood (Negative) Urine Nitrite (Negative) Urine Bilirubin (Negative) Urine Urobilinogen (Negative) Ur Leukocyte Esterase (Negative) Urine WBC (Auto) Urine RBC (Auto) U Hyaline Cast (Auto) U Epithel Cells (Auto) Urine Bacteria (Auto) Ur Renal Epithelial Cell Urine Crystals Calcium Oxalate Crystal Uric Acid Crystals Triple Phos Crystals Other Crystals Amorphous Sediment Granular Casts Waxy Casts RBC Casts WBC Casts Pathogenic Casts Other Casts Urine Mucus Urine Other Urine Trichomonas Urine Yeast Urine Sperm Ur Oval Fat Bodies Ur Culture Indicated? Nasal Screen MRSA (PCR) (Negative) Adenovirus (PCR) (NotDetected) B. pertussis DNA (PCR) (NotDetected) B.parapertussis DNA PCR (NotDetected) C. pneumoniae DNA (PCR) (NotDetected) Coronavirus OC43 (PCR) (NotDetected) Coronavirus HKU1 (PCR) (NotDetected) Coronavirus 229E (PCR) (NotDetected) SARS-CoV-2 (PCR) (NotDetected) Coronavirus NL63 (PCR) (NotDetected) Human Metapneumovir PCR (NotDetected) Influenza Type A (PCR) (NotDetected) Influenza Type B (PCR) (NotDetected) M. pneumoniae (PCR) (NotDetected) Parainfluenza 1 (PCR) (NotDetected) Parainfluenza 2 (PCR) (NotDetected) Parainfluenza 3 (PCR) (NotDetected) Parainfluenza 4 (PCR) (NotDetected) RSV (PCR) (NotDetected) Entero/Rhino (PCR) (NotDetected) 08/31/23 08/31/23 Range/Units 04:27 06:29 WBC 14.19 H (4.8-10.8) K/ul RBC 3.72 L (4.70-6.10) M/uL Hgb 11.6 L (14.0-18.0) g/dl POC Hgb (14.0-18.0) g/dl Hct 35.9 L (42.0-52.0) % POC Hct (42-52) % MCV 96.5 (80.0-100.0) fL MCH 31.2 (25.0-34.0) pg MCHC 32.3 (32.0-36.0) g/dL RDW Std Deviation 48.5 H (36.4-46.3) fL RDW Coeff of Jesse 13.7 (11.5-14.5) % Plt Count 397 D (130-400) K/uL MPV 9.3 L (9.4-12.4) fL Immature Gran % (Auto) % Neut % (Auto) % Lymph % (Auto) % [place] % (Auto) % Eos % (Auto) % Baso % (Auto) % Neut # (Auto) (1.40-6.50) K/uL Lymph # (Auto) (1.20-3.40) K/uL [place] # (Auto) (0.11-0.59) K/uL Eos # (Auto) (0.00-0.50) K/uL Baso # (Auto) (0.00-0.20) K/uL Immature Gran # (Auto) (0.01-0.20) K/uL RBC Morphology PT (9.0-12.0) Seconds INR (0.9-1.1) APTT (21-31) Seconds PTT Ratio D-Dimer 1650 H* (0-500) ug/L FEU POC pH (7.35-7.45) POC pCO2 (35-46) mmHg POC pO2 (80-95) mmHg POC HCO3 (19-24) lachelle/L POC Total CO2 (24-31) mmol/L POC Base Excess (-9-1.8) lachelle/L ABG pH (7.35-7.45) ABG pCO2 (35-46) mmHg ABG pO2 (80-95) mmHg ABG HCO3 (19-24) mmol/L POC ABG O2 Sat (90-95) % ABG O2 Saturation (90-95) % ABG Base Excess (-9-1.8) mEq/L Mikey Test (Pos) Oxygen Given POC Sodium (135-144) mmol/L Sodium 142 (136-145) mmol/L POC Potassium (3.3-5.0) mmol/L Potassium 4.4 (3.5-5.1) mmol/L POC Chloride (101-112) mmol/L Chloride 111 H (98-107) mmol/L Carbon Dioxide 22 (21-32) mmol/L Anion Gap 9 (3-11) POC Anion Gap (16-25) mmol/L POC BUN (7-18) mg/dl BUN 35 H (6-23) mg/dl Creatinine 2.18 H (0.6-1.4) mg/dl POC Creatinine (0.6-1.3) mg/dl Est Cr Clr Drug Dosing 28.0 Est GFR ( Amer) 33.8 ml/min Est GFR (Non-Af Amer) 29.2 ml/min BUN/Creatinine Ratio 16.1 (10-20) Glucose 76 (70-99(Fasting)) mg/dl POC Glucose (other) (70-99) mg/dl Lactate 2.6 H* 2.7 H* (0.4-2.0) mmol/L Calcium 9.3 (8.6-10.3) mg/dl POC Ioniz Calcium [place] (1.12-1.32) mmol/l Magnesium (1.7-2.4) mg/dl Iron (35-175) mcg/dl TIBC (250-450) mcg/dl Unsaturated IBC (155-355) mcg/dl Transferrin % Sat (20-50) % Ferritin (8-388) ng/ml Total Bilirubin (0.2-1.0) mg/dl Direct Bilirubin (0-0.2) mg/dl AST (13-39) U/L ALT (7-52) U/L Alkaline Phosphatase (34-104) U/L Troponin I High Sens (0-20) pg/ml Total Protein (6.0-8.3) gm/dl Albumin (3.4-5.0) gm/dl Vitamin B12 (180-914) pg/ml Folate (>5.38) ng/ml Procalcitonin 0.62 H (0-0.5) ng/ml Urine Color Urine Appearance (Clear) Urine pH (4.5-7.5) Ur Specific [place] (1.000-1.030) Urine Protein (Negative) Urine Glucose (UA) (Negative) Urine Ketones (Negative) Urine Blood (Negative) Urine Nitrite (Negative) Urine Bilirubin (Negative) Urine Urobilinogen (Negative) Ur Leukocyte Esterase (Negative) Urine WBC (Auto) Urine RBC (Auto) U Hyaline Cast (Auto) U Epithel Cells (Auto) Urine Bacteria (Auto) Ur Renal Epithelial Cell Urine Crystals Calcium Oxalate Crystal Uric Acid Crystals Triple Phos Crystals Other Crystals Amorphous Sediment Granular Casts Waxy Casts RBC Casts WBC Casts Pathogenic Casts Other Casts Urine Mucus Urine Other Urine Trichomonas Urine Yeast Urine Sperm Ur Oval Fat Bodies Ur Culture Indicated? Nasal Screen MRSA (PCR) (Negative) Adenovirus (PCR) (NotDetected) B. pertussis DNA (PCR) (NotDetected) B.parapertussis DNA PCR (NotDetected) C. pneumoniae DNA (PCR) (NotDetected) Coronavirus OC43 (PCR) (NotDetected) Coronavirus HKU1 (PCR) (NotDetected) Coronavirus 229E (PCR) (NotDetected) SARS-CoV-2 (PCR) (NotDetected) Coronavirus NL63 (PCR) (NotDetected) Human Metapneumovir PCR (NotDetected) Influenza Type A (PCR) (NotDetected) Influenza Type B (PCR) (NotDetected) M. pneumoniae (PCR) (NotDetected) Parainfluenza 1 (PCR) (NotDetected) Parainfluenza 2 (PCR) (NotDetected) Parainfluenza 3 (PCR) (NotDetected) Parainfluenza 4 (PCR) (NotDetected) RSV (PCR) (NotDetected) Entero/Rhino (PCR) (NotDetected) Diagnostic Findings Exam(s): CT ABDOMEN + PELVIS With Contrast IV Amt: 117 ml optiray 320 EXAM: CT Abdomen and Pelvis With Intravenous Contrast CLINICAL HISTORY: Pain. TECHNIQUE: Axial computed tomography images of the abdomen and pelvis with intravenous contrast. Automated exposure control was utilized for the study. A dose lowering technique was utilized adhering to the principles of ALARA. CONTRAST: Patient received 117 ml optiray 320 of IV contrast COMPARISON: No relevant prior studies available. FINDINGS: Lung bases: Unremarkable. No mass. No consolidation. ABDOMEN: Liver: Unremarkable. No mass. Gallbladder and bile ducts: Unremarkable. No calcified stones. No ductal dilation. Pancreas: Unremarkable. No mass. No ductal dilation. Spleen: Unremarkable. No splenomegaly. Adrenals: Unremarkable. No mass. Kidneys and ureters: Unremarkable. No solid mass. No hydronephrosis. Stomach and bowel: Pooling hyperdensity within the lumen of the distal small bowel. Diverticulosis. See below. No definitive evidence of obstruction. PELVIS: Appendix: No findings to suggest acute appendicitis. Bladder: Unremarkable. No mass. Reproductive: Unremarkable as visualized. ABDOMEN and PELVIS: Intraperitoneal space: Significant free air in the abdomen is concerning for bowel perforation. This is of the small bowel in origin as there is marked thickening of the mid and distal small bowel wall. There is a small amount of free fluid in the abdomen and pelvis which is nonspecific. Question loculated fluid in the right lower quadrant, although this is nonspecific. Bones/joints: There are degenerative changes of the spine. No acute fracture. No dislocation. Soft tissues: Nonspecific body wall edema. Vasculature: Mild atherosclerosis. No abdominal aortic aneurysm. Lymph nodes: Unremarkable. No enlarged lymph nodes. IMPRESSION: 1. Significant free air in the abdomen is concerning for bowel perforation. This is of the small bowel in origin as there is marked thickening of the mid and distal small bowel wall. 2. Pooling hyperdensity within the lumen of the distal small bowel. This is concerning for active GI bleed. 3. There is a small amount of free fluid in the abdomen and pelvis which is nonspecific. Question loculated fluid in the right lower quadrant, although this is nonspecific. 4. Nonspecific body wall edema. 5. Diverticulosis. Exam(s): CTA CHEST IV Amt: 117 ml optiray 320 EXAM: CT Angiography Chest With Intravenous Contrast CLINICAL HISTORY: Pulmonary embolus. TECHNIQUE: Axial computed tomographic angiography images of the chest with intravenous contrast. Automated exposure control was utilized for the study. A dose lowering technique was utilized adhering to the principles of ALARA. MIP reconstructed images were created and reviewed. COMPARISON: No relevant prior studies available. FINDINGS: Pulmonary arteries: Unremarkable. No pulmonary embolus. Aorta: Mild atherosclerosis. No thoracic aortic aneurysm. Lungs: Airspace opacities bilaterally may represent multifocal pneumonia and/or aspiration. Bilateral pulmonary masses are most consistent with metastatic disease. These measure up to 3.7 cm. Emphysema. Pleural space: Small bilateral pleural effusions. No pneumothorax. Heart: Unremarkable. No cardiomegaly. No significant pericardial effusion. No evidence of RV dysfunction. Bones/joints: Chronic bilateral rib fractures with postsurgical changes and screws and plates. Soft tissues: Unremarkable. Lymph nodes: Unremarkable. No enlarged lymph nodes. Intraperitoneal space: Marked free fluid in the abdomen is noted. IMPRESSION: 1. No pulmonary embolus. 2. Airspace opacities bilaterally may represent multifocal pneumonia and/or aspiration. 3. Bilateral pulmonary masses are most consistent with metastatic disease. These measure up to 3.7 cm. 4. Emphysema. 5. Small bilateral pleural effusions. 6. Marked free fluid in the abdomen is noted. Please see dedicated CT abdomen and pelvis report regarding the abdominal findings. Electronically signed by: Fay Moffett MD 08/31/23 05:14 AM
[2023-08-31] MEDS ORDERED: NOREPINEPHRINE/D5W 4 MG/250 ML IV ONE ×2 (06:39→22:14)
--- NOTE | 2023-08-31 07:10 | Critical Care Consultation ---
Date of Consultation August 31, 2023 Assessment & Plan (1) Pneumonia: (2) Abnormal CT scan, chest: (3) COPD (chronic obstructive pulmonary disease): Plan Reason Critically Ill: Impression: 73-year-old male with perforated viscus postop day 0 PLAN: Neuro: History of multi factorial metabolic encephalopathy -Continues during this admission by medical records -Reported history of alcohol abuse very low on differential given that he was initially admitted to hospital greater than 6 weeks ago Resp: Pulmonary notes reviewed: Recommendations: Multiple pulmonary nodules: Currently off anticoagulation secondary to exploratory laparotomy: Will discuss with family possibility of biopsy. -Continue antibiotic coverage for intra-abdominal infection which will also provide coverage for most pulmonary sources -Intra-abdominal findings could represent source for possible septic emboli -Attempt to obtain MRI of the brain with and without contrast -If this is malignancy, it is widely metastatic and the patient appears to be a poor candidate for systemic chemotherapy currently. - There is a potential hypodensity in the liver/below the liver which was poorly visualized on the CT scan and additional imaging is recommended. COPD: The patient does not appear to be suffering an acute exacerbation of COPD. CV: History of stress-induced cardiomyopathy while at [place] History of paroxysmal atrial fibrillation with rapid ventricular response -Appears the systemic anticoagulation and amiodarone were started in response to these hemodynamic changes while the patient was critically ill on his previous hospitalization Fluids/Renal: Report of acute kidney injury on chronic kidney disease -Pharmacy to assist with antibiotic dosing ID: Perforated viscus: Findings concerning for possible intra-abdominal abscess -Continue Zosyn and vancomycin awaiting cultures GI/Nutrition: Postop day 0 from perforated viscus -Maintain n.p.o. status Heme: Systemic anticoagulation with apixaban -Patient currently in normal sinus rhythm and postop will hold anticoagulation for possible biopsy of lung mass DVT prophylaxis: SCDs Endocrine: ICU hyperglycemia protocol Vascular access: Subclavian left central venous catheter, arterial line Code Status: Full code Disposition: ICU Additional history was obtained from family members present at bedside. They included 2 daughters, 2 sons, 1 additional child was not present at the bedside. His former spouse who has been legally from was also present and involved in the discussions. We discussed current diagnoses, differential diagnoses, different treatment plans. Patient is a fiercely independent individual who has previously mentioned he would not want to be dependent on others for care and his ultimate goal would be to return to a state of independent living. We discussed the pulmonary nodules differential diagnosis and possible need for biopsy in particular we discussed the timing of the biopsy. Family felt that if this was to represent a malignancy he would not want to undergo chemotherapy or radiation, therefore we are not going to entertain biopsy during this present setting. We will obtain an MRI of the brain and ultrasound of the liver to further classify cysts versus mass and any concerns for evidence of metastatic disease. The patient did suffer a seizure at the previous hospital, this is anecdotally thought to be related to alcohol dependence. Further discussions of the patient's goals in event of cardiac arrest were discussed. He would not want to undergo heroic life-saving measures in event of cardiac arrest, he would be agreeable to escalation of care should his condition deteriorate. Therefore the patient's CODE STATUS will be changed to DO NOT RESUSCITATE in event of cardiac arrest. This decision was supported by the majority of the family members, both daughters and 1 son were in definitive agreement, the additional son expressed some reservation. Family states the patient prefers to go by [place] as opposed to his legal name of [employer] Super[employer]ising Physician Co-Signing Physician Notes I have personally spent 115 minutes of critical care time in the direct management of this patient. This is a life/limb threatening event. This includes time spent evaluating patient, direct bedside care, chart review, pl acing orders, interpretation of diagnostic studies, discussion with consultants, patient, and/or family members regarding treatment decisions, as well as other required patient management activities. This time is exclusive of all separately billable procedures, and teaching time and separate from and in addition to any other critical care service time. History of Present Illness Reason for Consultation: perforated viscus Attending Physician: Mayuri Bolton MD History of Present Illness Patient is a 73-year-old male who was admitted approximately 5 days ago after recent admission from [facility] from 07/24 to 08/26 with a 1 day admission to rehab facility. He was transferred to [facility] for hypoxia. I have attempted to review the prior records obtained from [facility]. Discharge diagnoses include sepsis/septic shock, aspiration pneumonia, acute hypoxemic respiratory failure requiring a period of intubation mechanical ventilation, paroxysmal atrial fibrillation, multifactorial metabolic encephalopathy, critical illness myopathy, stress cardiomyopathy, acute kidney injury, and the patient is on systemic anticoagulation: From records it appears to be secondary to paroxysmal atrial fibrillation. Past medical history on the discharge summary listed COPD, A-fib, CKD stage III, chronic opiate dependence. Patient was initially seen in the emergency department on 08/03 with a hypoxic episode with a plan to for antibiotics steroids supplemental oxygen and discharged home however there was an aspiration event which prompted the patient to be intubated secondary to hypoxia. He was subsequently extubated on the . Per records he most likely had difficulty clearing secretion increasing work of breathing and required intubation. He was later able to be extubated on 1121. During the period of critical illness he developed atrial fibrillation with rapid ventricular response. Records indicate the patient completed a 14- day course of Zosyn therapy (listing stop date is 08/09/2023) had completed a course of Keppra on 07/2823 for seizure-like activity that was also associated with a hypoxic episode in the [place] urgency department. There is documentation of a possible small bowel obstruction during his ICU stay. He was noted to have dysphagia. Echo report dated 08/17/2023 demonstrated left ventricle with wall thickness mildly increased, systolic function is normal EF estimated 60-65 with a right ventricle cavity size normal systolic function normal. There is a previous echo result of 08/09 which demonstrated mildly reduced systolic function with an EF of approximately 40% moderate to severe hypokinesis of the mid segments and severe hypokinesis of the apical segments the basal segments are hypercontractile findings suggestive of stress-induced cardiomyopathy. Reviewed CT scan report of abdomen pelvis with contrast obtained on 08/07/2023 Chest x-ray dated 08/25/2023: Report has been reviewed: Bilateral interstitial opacities unchanged from previous exam. Allergies Allergy/AdvReac Type Severity Reaction Status Date / Time bee venom protein (honey bee) Allergy Severe Anaphylaxis Verified 08/26/23 19:49 ibuprofen [From Motrin] AdvReac Mild Rash Verified 08/26/23 19:13 Home Medications Medication Instructions Recorded Confirmed Type acetaminophen 325 mg tablet 650 mg PO Q4H PRN Pain (Scale 08/26/23 08/26/23 History (Tylenol) Score 1-3) albuterol sulfate 90 mcg/actuation 1 puff inhalation Q6H PRN Wheezing 08/26/23 08/26/23 History aerosol inhaler amiodarone 200 mg tablet 200 mg PO DAILY 08/26/23 08/26/23 History amiodarone 200 mg tablet 200 mg PO Q12H 08/26/23 08/26/23 History amiodarone 200 mg tablet 400 mg PO BID 08/26/23 08/26/23 History apixaban 5 mg tablet (Eliquis) 5 mg PO Q12H 08/26/23 08/26/23 History bisacodyl 10 mg rectal suppository 10 mg HI DAILY PRN Constipation 08/26/23 08/26/23 History cholecalciferol (vitamin D3) 50 50 mcg PO DAILY 08/26/23 08/26/23 History mcg (2,000 unit) capsule (Vitamin D3) dextrose 40 % oral gel 1 ea PO DIRECTED PRN 08/26/23 08/26/23 History Hypoglycemia docusate sodium 100 mg capsule 100 mg PO BID 08/26/23 08/26/23 History hydroxychloroquine 200 mg tablet 200 mg PO Q12H 08/26/23 08/26/23 History ipratropium 0.5 mg-albuterol 3 mg 3 ml inhalation Q4H 08/26/23 08/26/23 History (2.5 mg base)/3 mL nebulization soln magnesium hydroxide 400 mg/5 mL 30 ml PO DAILY PRN Constipation 08/26/23 08/26/23 History oral suspension (Milk of Magnesia) metoprolol tartrate 25 mg tablet 25 mg PO Q12H 08/26/23 08/26/23 History multivitamin with minerals 1 tab PO DAILY 08/26/23 08/26/23 History nortriptyline 25 mg capsule 50 mg PO DAILY 08/26/23 08/26/23 History ondansetron HCl 4 mg tablet 4 mg PO Q4H PRN NAUSEA/VOMITING 08/26/23 08/26/23 History pantoprazole 40 mg tablet,delayed 40 mg PO DAILYBB 08/26/23 08/26/23 History release polyethylene glycol 3350 17 17 g PO QDL PRN Constipation 08/26/23 08/26/23 History gram/dose oral powder (Miralax) prednisone 20 mg tablet 40 mg PO DAILY 08/26/23 08/26/23 History sennosides 8.6 mg-docusate sodium 1 tab-cap PO QDL PRN Constipation 08/26/23 08/26/23 History 50 mg tablet (Senokot-S) sodium phosphates 19 gram-7 118 ml HI DAILY PRN Constipation 08/26/23 08/26/23 History gram/118 mL enema (Fleet Enema) tizanidine 2 mg tablet 2 mg PO TID PRN MUSCLE SPASMS 08/26/23 08/26/23 History tramadol 50 mg tablet 50 mg PO Q6H PRN Pain (Scale Score 08/26/23 08/26/23 History 4-6) tramadol 50 mg tablet 100 mg PO Q6H PRN Pain (Scale 08/26/23 08/26/23 History Score 7-10) umeclidinium 62.5 mcg/actuation 1 inh inhalation DAILY 08/26/23 08/26/23 History blister powder for inhalation (Incruse Ellipta) zinc sulfate 50 mg zinc (220 mg) 50 mg PO DAILY 08/26/23 08/26/23 History capsule Patient History Medical History (Updated 08/31/23 @ 10:55 by Adrien Tejada DO) Abnormal CT scan, chest CKD (chronic kidney disease), stage IV Acute metabolic encephalopathy Severe protein-calorie malnutrition COPD (chronic obstructive pulmonary disease) Polymyalgia rheumatica Stress-induced cardiomyopathy [place] Echo 08/09/23 Resolved [facility] echo 08/17/23 SHEBA (acute kidney injury) Alcohol abuse Paroxysmal A-fib Aspiration pneumonia Social History Smoking Status: Former smoker Second Hand Exposure: No; Do You Dip or Chew Tobacco: No; Tobacco Cessation Education Requested by Patient: No Hx Alcohol Use: Yes Alcohol type: beer and hard liquor Hx Substance Use: No Preferred Language: Japanese Communication Ability: Impaired Distance Learning Unit Leader Required: No Beliefs That Will Affect Care: None Current Living Situation: Alone Current Living Situation Comment: Lives alone at [facility], [facility] Other Information That Helps Us Care for You: No Feels Safe at Home: Hesitant to Answer Safety Concerns: Feels Safe At This Time Assistive Devices: Cane Review of Systems Review of Systems: Unobtainable due to endotracheal tube Physical Exam Physical Exam: General: Sedated. nontoxic. Skin: Warm, dry, Head: Atraumatic Ears, nose, mouth and throat: airway obscured by endotracheal tube Cardiovascular: Normal peripheral perfusion Respiratory: Ventilator settings reviewed Gastrointestinal: Non distended Musculoskeletal: No deformity Results & Data Results & Data Vital Signs (Past 12 Hours) Vital Signs Temp Pulse Pulse Pulse Resp BP BP 08/31/23 06:28 36.7 C 92 H 42 H 144/100 H 08/31/23 05:34 36 H 137/77 08/31/23 04:53 93 H 22 135/87 08/31/23 04:03 95 H 37 H 123/88 08/31/23 03:49 95 H 39 H 105/67 08/31/23 03:13 36.7 C 36 H 145/91 H 08/31/23 01:55 92 H 08/30/23 23:00 08/30/23 22:57 37.2 C 96 H 18 189/107 H 08/30/23 21:26 167/93 H 08/30/23 20:00 08/30/23 20:00 165/102 H 08/30/23 19:41 91 H 18 08/30/23 19:31 36.7 C 92 H 20 178/110 H Pulse Ox Pulse Ox O2 Del Method O2 Del Method O2 Flow Rate 08/31/23 06:28 100 Oxymask 5 08/31/23 05:34 95 Oxymask 5 08/31/23 04:53 100 Oxymask 5 08/31/23 04:03 100 Oxymask 10 08/31/23 03:49 08/31/23 03:13 94 Nasal Cannula 3 08/31/23 01:55 08/30/23 23:00 95 Nasal Cannula 08/30/23 22:57 94 Nasal Cannula 2 08/30/23 21:26 08/30/23 20:00 Nasal Cannula 08/30/23 20:00 08/30/23 19:41 92 Nasal Cannula 2 08/30/23 19:31 93 Nasal Cannula 2 Critical Care Results & Data Vital Signs (Past 12 Hours) Vital Signs Temp Pulse Pulse Resp BP BP BP 08/31/23 14:35 99/59 L 08/31/23 14:35 37.3 C 72 21 08/31/23 14:30 37.3 C 74 22 08/31/23 14:30 102/61 08/31/23 14:25 37.3 C 73 18 08/31/23 14:25 102/63 08/31/23 14:20 37.3 C 73 20 08/31/23 14:20 112/67 08/31/23 14:15 37.3 C 74 20 08/31/23 14:15 112/67 08/31/23 14:10 112/68 08/31/23 14:10 37.3 C 74 20 08/31/23 14:05 112/67 08/31/23 14:05 37.3 C 74 20 08/31/23 14:00 37.3 C 75 22 08/31/23 13:55 94/60 L 08/31/23 13:55 37.2 C 75 26 H 08/31/23 13:50 83/53 L 08/31/23 13:50 36.0 C L 75 21 08/31/23 13:45 81/55 L 08/31/23 13:45 36.6 C 75 20 08/31/23 13:40 87/56 L 08/31/23 13:40 37.0 C 75 19 08/31/23 13:35 37.0 C 75 20 08/31/23 13:35 83/56 L 08/31/23 13:30 90/58 L 08/31/23 13:30 37.0 C 75 20 08/31/23 13:25 36.9 C 75 18 08/31/23 13:25 93/61 L 08/31/23 13:20 93/62 L 08/31/23 13:20 36.9 C 75 19 08/31/23 13:15 36.9 C 75 18 08/31/23 13:15 96/63 L 08/31/23 13:10 97/64 L 08/31/23 13:10 36.9 C 75 18 08/31/23 13:05 96/64 L 08/31/23 13:05 36.8 C 76 18 08/31/23 13:00 36.8 C 76 18 08/31/23 13:00 104/69 08/31/23 12:55 100/68 08/31/23 12:55 76 18 08/31/23 12:50 105/69 08/31/23 12:50 35.9 C L 75 18 08/31/23 12:45 102/68 08/31/23 12:45 31.1 C L 75 18 08/31/23 12:40 97/65 L 08/31/23 12:40 29.5 C L 75 18 08/31/23 12:35 75 18 08/31/23 12:35 93/64 L 08/31/23 12:30 96/66 L 08/31/23 11:20 111/72 08/31/23 11:20 35.9 C L 77 18 08/31/23 11:15 112/73 08/31/23 11:15 35.9 C L 77 18 08/31/23 11:10 114/75 08/31/23 11:10 36.4 C L 77 18 08/31/23 11:05 108/72 08/31/23 11:05 36.3 C L 78 17 08/31/23 11:00 109/71 08/31/23 11:00 36.4 C L 77 18 08/31/23 10:55 111/75 08/31/23 10:55 36.4 C L 78 18 08/31/23 10:50 120/75 08/31/23 10:50 36.1 C L 79 18 08/31/23 10:45 36.4 C L 0 L 25 H 08/31/23 10:45 125/79 08/31/23 10:40 36.1 C L 78 23 08/31/23 10:40 111/71 08/31/23 10:35 121/75 08/31/23 10:35 36.0 C L 78 18 08/31/23 10:30 36.4 C L 77 18 08/31/23 10:30 123/75 08/31/23 10:25 123/75 08/31/23 10:25 36.4 C L 77 18 08/31/23 10:20 133/79 08/31/23 10:20 36.4 C L 71 26 H 08/31/23 10:15 162/90 H 08/31/23 10:15 36.4 C L 78 18 08/31/23 10:10 65 18 08/31/23 10:10 36.5 C 71 22 08/31/23 10:10 159/87 H 08/31/23 10:05 162/87 H 08/31/23 10:05 18 08/31/23 10:04 14 08/31/23 08:29 08/31/23 08:00 08/31/23 07:55 80 18 08/31/23 07:50 88/63 L 08/31/23 07:50 81 18 08/31/23 07:45 93/65 L 08/31/23 07:45 82 18 08/31/23 07:40 85 18 08/31/23 07:40 103/68 08/31/23 07:35 105/71 08/31/23 07:35 83 18 08/31/23 07:30 122/75 08/31/23 07:30 84 27 H 08/31/23 07:25 82 18 08/31/23 07:25 104/70 08/31/23 07:20 104/71 08/31/23 07:20 82 18 08/31/23 07:15 108/70 08/31/23 07:15 82 18 08/31/23 07:14 36.9 C 82 28 H 104/71 08/31/23 07:00 81 19 08/31/23 07:00 101/56 L 08/31/23 07:00 81 18 08/31/23 06:55 103/50 L 08/31/23 06:55 82 18 08/31/23 06:50 84 18 08/31/23 06:50 103/58 L 08/31/23 06:48 108/67 08/31/23 06:48 86 16 08/31/23 06:45 89 31 H 08/31/23 06:43 111/78 08/31/23 06:35 91 H 38 H 08/31/23 06:30 91 H 43 H 08/31/23 06:28 36.7 C 92 H 42 H 144/100 H 08/31/23 05:34 36 H 137/77 08/31/23 04:53 93 H 22 135/87 08/31/23 04:03 95 H 37 H 123/88 08/31/23 03:49 95 H 39 H 105/67 Pulse Ox O2 Del Method O2 Flow Rate FiO2 08/31/23 14:35 08/31/23 14:35 100 08/31/23 14:30 100 08/31/23 14:30 08/31/23 14:25 100 08/31/23 14:25 08/31/23 14:20 100 08/31/23 14:20 08/31/23 14:15 100 08/31/23 14:15 08/31/23 14:10 08/31/23 14:10 100 08/31/23 14:05 08/31/23 14:05 100 08/31/23 14:00 100 08/31/23 13:55 08/31/23 13:55 100 08/31/23 13:50 08/31/23 13:50 100 08/31/23 13:45 08/31/23 13:45 100 08/31/23 13:40 08/31/23 13:40 100 08/31/23 13:35 100 08/31/23 13:35 08/31/23 13:30 08/31/23 13:30 100 08/31/23 13:25 100 08/31/23 13:25 08/31/23 13:20 08/31/23 13:20 100 08/31/23 13:15 100 08/31/23 13:15 08/31/23 13:10 08/31/23 13:10 100 08/31/23 13:05 08/31/23 13:05 100 08/31/23 13:00 100 08/31/23 13:00 08/31/23 12:55 08/31/23 12:55 100 08/31/23 12:50 08/31/23 12:50 100 08/31/23 12:45 08/31/23 12:45 100 08/31/23 12:40 08/31/23 12:40 100 08/31/23 12:35 100 08/31/23 12:35 08/31/23 12:30 08/31/23 11:20 08/31/23 11:20 100 08/31/23 11:15 08/31/23 11:15 100 08/31/23 11:10 08/31/23 11:10 100 08/31/23 11:05 08/31/23 11:05 100 08/31/23 11:00 08/31/23 11:00 100 08/31/23 10:55 08/31/23 10:55 100 08/31/23 10:50 08/31/23 10:50 100 08/31/23 10:45 100 08/31/23 10:45 08/31/23 10:40 100 08/31/23 10:40 08/31/23 10:35 08/31/23 10:35 100 08/31/23 10:30 100 08/31/23 10:30 08/31/23 10:25 08/31/23 10:25 100 08/31/23 10:20 08/31/23 10:20 100 08/31/23 10:15 08/31/23 10:15 100 08/31/23 10:10 100 70 08/31/23 10:10 100 08/31/23 10:10 08/31/23 10:05 08/31/23 10:05 100 08/31/23 10:04 100 08/31/23 08:29 70 08/31/23 08:00 Mechanical Vent 08/31/23 07:55 100 08/31/23 07:50 08/31/23 07:50 100 08/31/23 07:45 08/31/23 07:45 100 08/31/23 07:40 100 08/31/23 07:40 08/31/23 07:35 08/31/23 07:35 100 08/31/23 07:30 08/31/23 07:30 100 08/31/23 07:25 100 08/31/23 07:25 08/31/23 07:20 08/31/23 07:20 100 08/31/23 07:15 08/31/23 07:15 100 08/31/23 07:14 100 Mechanical Vent 08/31/23 07:00 100 100 08/31/23 07:00 08/31/23 07:00 100 08/31/23 06:55 08/31/23 06:55 100 08/31/23 06:50 100 08/31/23 06:50 08/31/23 06:48 08/31/23 06:48 100 08/31/23 06:45 100 08/31/23 06:43 08/31/23 06:35 08/31/23 06:30 08/31/23 06:28 100 Oxymask 5 08/31/23 05:34 95 Oxymask 5 08/31/23 04:53 100 Oxymask 5 08/31/23 04:03 100 Oxymask 10 08/31/23 03:49 Lab & Micro Results (Past 24 Hours) RBC 3.72 M/uL (4.70-6.10) L 08/31/23 WBC 14.19 K/ul (4.8-10.8) H 08/31/23 Hgb 11.6 g/dl (14.0-18.0) L 08/31/23 Hct 35.9 % (42.0-52.0) L 08/31/23 MCV 96.5 fL (80.0-100.0) 08/31/23 MCH 31.2 pg (25.0-34.0) 08/31/23 MCHC 32.3 g/dL (32.0-36.0) 08/31/23 RDW Standard Deviation 48.5 fL (36.4-46.3) H 08/31/23 RDW Coefficient of Variation 13.7 % (11.5-14.5) 08/31/23 Plt Count 397 K/uL (130-400) 08/31/23 MPV 9.3 fL (9.4-12.4) L 08/31/23 Na 142 mmol/L (136-145) 08/31/23 K 4.4 mmol/L (3.5-5.1) 08/31/23 Cl 111 mmol/L (98-107) H 08/31/23 CO2 22 mmol/L (21-32) 08/31/23 Anion Gap 9 (3-11) 08/31/23 BUN 35 mg/dl (6-23) H 08/31/23 Creatinine 2.18 mg/dl (0.6-1.4) H 08/31/23 Estimated GFR ( Amer) 33.8 ml/min 08/31/23 Estimated GFR (Non-Af Amer) 29.2 ml/min 08/31/23 BUN/Creatinine Ratio 16.1 (10-20) 08/31/23 Glu 76 mg/dl (70-99(Fasting)) 08/31/23 Ca 9.3 mg/dl (8.6-10.3) 08/31/23 Calcium Level 9.3 mg/dl (8.6-10.3) 08/31/23 04:27 Microbiology 08/31/23 08:48 Gram Stain - Final Peritoneal Fluid Diagnostic Findings (Past 24 Hours) Chest X-Ray 08/30/23 15:59 XR chest 1V portable, XR KUB/Abdomen 1 view HISTORY: 73 years-old Male tachypnea, pneumonia, interval change acute shortness of breath with abdominal pain COMPARISON: Chest radiograph and chest CT 08/26/2023 TECHNIQUE: AP view of the chest FINDINGS: CHEST: Cardiac silhouette is enlarged. Emphysema with chronic interstitial coarsening. Patchy bilateral nodular consolidative opacities are again noted which are similar to prior. Moderate hemidiaphragm elevation. No pneumothorax or large pleural effusion. Degenerative changes of the shoulders and spine. ORIF changes of the ribs. KUB: Residual barium noted within the large bowel. Gaseous distention of both large and small bowel is noted with small bowel loops measuring up to 4.8 cm. Colonic diverticulosis. Renal shadows are obscured. No free air identified. Lumbar levoscoliosis. IMPRESSION: 1. Emphysema with persistent patchy bilateral nodular consolidative opacities, similar in appearance to chest CT from 08/26/2023. Continued follow-up recommended. 2. Residual barium noted within the large bowel. There is gaseous distention of the large and small bowel which may represent an ileus. Follow-up recommended in order to exclude an obstruction. 3. Cardiomegaly. ACT 112: Negative or not required by law. The above report was generated using voice recognition software. It may contain grammatical, syntax or spelling errors. Electronically signed by: Juan Carlos Rai M.D. 08/30/2023 4:36 PM KUB X-Ray 08/30/23 15:59 XR chest 1V portable, XR KUB/Abdomen 1 view HISTORY: 73 years-old Male tachypnea, pneumonia, interval change acute shortness of breath with abdominal pain COMPARISON: Chest radiograph and chest CT 08/26/2023 TECHNIQUE: AP view of the chest FINDINGS: CHEST: Cardiac silhouette is enlarged. Emphysema with chronic interstitial coarsening. Patchy bilateral nodular consolidative opacities are again noted which are similar to prior. Moderate hemidiaphragm elevation. No pneumothorax or large pleural effusion. Degenerative changes of the shoulders and spine. ORIF changes of the ribs. KUB: Residual barium noted within the large bowel. Gaseous distention of both large and small bowel is noted with small bowel loops measuring up to 4.8 cm. Colonic diverticulosis. Renal shadows are obscured. No free air identified. Lumbar levoscoliosis. IMPRESSION: 1. Emphysema with persistent patchy bilateral nodular consolidative opacities, similar in appearance to chest CT from 08/26/2023. Continued follow-up recommended. 2. Residual barium noted within the large bowel. There is gaseous distention of the large and small bowel which may represent an ileus. Follow-up recommended in order to exclude an obstruction. 3. Cardiomegaly. ACT 112: Negative or not required by law. The above report was generated using voice recognition software. It may contain grammatical, syntax or spelling errors. Electronically signed by: Juan Carlos Rai M.D. 08/30/2023 4:36 PM Abdomen/Pelvis CT 08/31/23 03:58 CR Exam(s): CT ABDOMEN + PELVIS With Contrast IV Amt: 117 ml optiray 320 EXAM: CT Abdomen and Pelvis With Intravenous Contrast CLINICAL HISTORY: Pain. TECHNIQUE: Axial computed tomography images of the abdomen and pelvis with intravenous contrast. Automated exposure control was utilized for the study. A dose lowering technique was utilized adhering to the principles of ALARA. CONTRAST: Patient received 117 ml optiray 320 of IV contrast COMPARISON: No relevant prior studies available. FINDINGS: Lung bases: Unremarkable. No mass. No consolidation. ABDOMEN: Liver: Unremarkable. No mass. Gallbladder and bile ducts: Unremarkable. No calcified stones. No ductal dilation. Pancreas: Unremarkable. No mass. No ductal dilation. Spleen: Unremarkable. No splenomegaly. Adrenals: Unremarkable. No mass. Kidneys and ureters: Unremarkable. No solid mass. No hydronephrosis. Stomach and bowel: Pooling hyperdensity within the lumen of the distal small bowel. Diverticulosis. See below. No definitive evidence of obstruction. PELVIS: Appendix: No findings to suggest acute appendicitis. Bladder: Unremarkable. No mass. Reproductive: Unremarkable as visualized. ABDOMEN and PELVIS: Intraperitoneal space: Significant free air in the abdomen is concerning for bowel perforation. This is of the small bowel in origin as there is marked thickening of the mid and distal small bowel wall. There is a small amount of free fluid in the abdomen and pelvis which is nonspecific. Question loculated fluid in the right lower quadrant, although this is nonspecific. Bones/joints: There are degenerative changes of the spine. No acute fracture. No dislocation. Soft tissues: Nonspecific body wall edema. Vasculature: Mild atherosclerosis. No abdominal aortic aneurysm. Lymph nodes: Unremarkable. No enlarged lymph nodes. IMPRESSION: 1. Significant free air in the abdomen is concerning for bowel perforation. This is of the small bowel in origin as there is marked thickening of the mid and distal small bowel wall. 2. Pooling hyperdensity within the lumen of the distal small bowel. This is concerning for active GI bleed. 3. There is a small amount of free fluid in the abdomen and pelvis which is nonspecific. Question loculated fluid in the right lower quadrant, although this is nonspecific. 4. Nonspecific body wall edema. 5. Diverticulosis. Communications: 08/31/23 05:34 Call Doctor Regarding Above results, called Dr. Holley on 08/31 05:34 (-05:00) Electronically signed by: Fay Moffett MD 08/31/23 05:41 AM Chest CTA 08/31/23 04:28 Exam(s): CTA CHEST IV Amt: 117 ml optiray 320 EXAM: CT Angiography Chest With Intravenous Contrast CLINICAL HISTORY: Pulmonary embolus. TECHNIQUE: Axial computed tomographic angiography images of the chest with intravenous contrast. Automated exposure control was utilized for the study. A dose lowering technique was utilized adhering to the principles of ALARA. MIP reconstructed images were created and reviewed. COMPARISON: No relevant prior studies available. FINDINGS: Pulmonary arteries: Unremarkable. No pulmonary embolus. Aorta: Mild atherosclerosis. No thoracic aortic aneurysm. Lungs: Airspace opacities bilaterally may represent multifocal pneumonia and/or aspiration. Bilateral pulmonary masses are most consistent with metastatic disease. These measure up to 3.7 cm. Emphysema. Pleural space: Small bilateral pleural effusions. No pneumothorax. Heart: Unremarkable. No cardiomegaly. No significant pericardial effusion. No evidence of RV dysfunction. Bones/joints: Chronic bilateral rib fractures with postsurgical changes and screws and plates. Soft tissues: Unremarkable. Lymph nodes: Unremarkable. No enlarged lymph nodes. Intraperitoneal space: Marked free fluid in the abdomen is noted. IMPRESSION: 1. No pulmonary embolus. 2. Airspace opacities bilaterally may represent multifocal pneumonia and/or aspiration. 3. Bilateral pulmonary masses are most consistent with metastatic disease. These measure up to 3.7 cm. 4. Emphysema. 5. Small bilateral pleural effusions. 6. Marked free fluid in the abdomen is noted. Please see dedicated CT abdomen and pelvis report regarding the abdominal findings. Electronically signed by: Fay Moffett MD 08/31/23 05:14 AM Chest X-Ray 08/31/23 06:58 XR chest 1V portable HISTORY: 73 years-old Male lines acute respiratory failure COMPARISON: CTA chest of same day TECHNIQUE: AP view of the chest FINDINGS: Cardiac silhouette is enlarged. Endotracheal tube overlies the midline, 3.4 cm superior to the rios. Left subclavian catheter is noted with distal tip projected over the right atrium. No pneumothorax. Small pleural effusions. Emphysema with bibasilar consolidation. Patchy nodular areas of consolidation are again noted, left greater than right. ORIF hardware of the ribs. IMPRESSION: 1. The endotracheal tube terminates 3.4 cm superior to the rios. 2. Small pleural effusions with bibasilar nodular consolidation redemonstrated. 3. Pulmonary emphysema. ACT 112: Negative or not required by law. The above report was generated using voice recognition software. It may contain grammatical, syntax or spelling errors. Electronically signed by: Juan Carlos Rai M.D. 08/31/2023 7:20 AM KUB X-Ray 08/31/23 10:29 KUB HISTORY: Evaluate NG tube placement. COMPARISON: KUB 08/30/2023. FINDINGS: Nasogastric tube terminates in the proximal stomach. The fenestrated line is at the gastroesophageal junction. Surgical drain and skin angela are seen within the midabdomen. There is residual barium contrast within the colon. No dilated loops of small bowel to suggest an obstruction. Postoperative changes within the ribs. No renal calculi. No ureteral calculi. No pneumoperitoneum or pneumatosis. IMPRESSION: 1. Nasogastric tube terminates at the proximal stomach. The fenestrated line is at the gastroesophageal junction. This could be advanced by approximately 5 cm. 2. Interval postoperative changes. No dilated loops of small bowel to suggest a small bowel obstruction. ACT 112: Negative or not required by law. Electronically signed by: Jamie Blanchard M.D. 08/31/2023 11:56 AM Chest X-Ray 08/31/23 10:40 XR chest 1V portable HISTORY: 73 years-old Male ett placement acute respiratory failure COMPARISON: 08/31/2023 TECHNIQUE: AP view of the chest FINDINGS: Endotracheal tube overlies the midline, 3 cm superior to the rios. Left subclavian catheter is again noted with distal tip projected over the right atrium. Distal tip of enteric tube projects over the gastric body. Cardiac silhouette is enlarged. No pneumothorax. Small pleural effusions. Emphysema with bibasilar consolidation. Patchy nodular areas of consolidation are again noted, left greater than right. ORIF hardware of the ribs. IMPRESSION: 1. Lines and tubes as above. 2. No pneumothorax. 3. Unchanged appearance of the lungs. ACT 112: Negative or not required by law. The above report was generated using voice recognition software. It may contain grammatical, syntax or spelling errors. Electronically signed by: Juan Carlos Rai M.D. 08/31/2023 11:22 AM I & O Totals 24 Hours 08/30/23 08/31/23 09/01/23 06:59 06:59 06:59 Intake Total 1075 / 1075 952 / 952 2906.640 / 2906.640 Output Total 1026 / 1026 352 / 352 440 / 440 Balance 49 / 49 600 / 600 2466.640 / 2466.640 Cumulative 08/26/23 17:05 thru 08/31/23 14:27 Intake Total 47881.390 Output Total 3024 Balance 8518.390 RT Ventilator Mngmt (Last Documented) Ventilator Ordered Settings Ventilator Support Mode Assist Control 08/31/23 10:10 Respiratory Rate 21 08/31/23 14:35 Ventilator Tidal Volume 400 08/31/23 10:10 Setting Minute Ventilation 7.2 08/31/23 10:10 Ventilator Positive Pressure 5 08/31/23 08:29 Support Setting Positive End Expiratory 5 08/31/23 10:10 Pressure Fraction of Inspired Oxygen 70 08/31/23 10:10 Machine Comment Vt adjusted to 400 (4-6kg)per 08/31/23 10:10 verbal by and ET, weaned to 55% Ventilator - PT Measurements Respiratory Rate 21 Exhaled Tidal Volume 400 Minute Ventilation 7.2 Peak Inspiratory Airway 20 Pressure Plateau Pressure 14 Respiratory Cycle Inspiratory: 1:4.6 Expiratory Ratio Inspiratory Phase Time 0.60 End-Tidal CO2 27 Static Lung Compliance 44.44 Dynamic Lung Compliance 26.67 Normal Static Lung Compliance 47.00 Patient Measurements Comment Patient back from OR, placed on vent Coding Level of Care Code 81176 CRITICAL CARE 1ST 30-74M Additional Critical Care Time Additional 30min Critical Care Time: Yes - 98667 Diagnoses Pneumonia J18.9 Laterality: left Lung location: unspecified part of lung Pneumonia type: due to unspecified organism Abnormal CT scan, chest R93.89 COPD (chronic obstructive pulmonary disease) J44.9 Additional Codes Critical Care Time - Additional 30min Critical Care Time: Yes - ([id number]) (1) Pneumonia Laterality: left Lung location: unspecified part of lung Pneumonia type: due to unspecified organism Qualified Code(s): J18.9 - Pneumonia, unspecified organism
[2023-08-31] MEDS ORDERED: fentaNYL BOLUS from BAG IV PRN (07:18)
[2023-08-31] MEDS ORDERED: PROPOFOL BOLUS FROM BAG IV PRN (07:18)
[2023-08-31] MEDS ORDERED: STAT IV Infusion **Titration per Protocol STA ×3 (07:18→22:13)
[2023-08-31] MEDS ORDERED: SODIUM CHLORIDE 0.9% 250 ML IV PRN (07:19)
--- NOTE | 2023-08-31 07:19 | Procedure Note ---
Procedure Note Date of Service August 31, 2023 Note LT SCL CENTRAL LINE PROCEDURE NOTE Procedure: Central Line Placement Proceduralist: Taran ELLISON ([facility]) Attending: Dr. Tejada Indication: Central Drug Administration, Poor Venous Access, Multiple Lab Draws Necessary, etc. Anesthesia: Fentanyl infusion Emergent Consent was implied as patient is full code and with emergent trip to [facility] [place] planned, no immediate family available. A time-out was completed verifying correct patient, procedure, site, positioning, and implants(s) or special equipment if applicable. Patients LEFT CHEST and Neck was cleansed and draped in the typical sterile fashion using Chloraprep. Landmarks were used noting the clavicle and sternal notch. The subclavian vein was cannulated on one attempt. Good venous blood return was maintained prior to removal of syringe from introducer needle. Using Seldinger Technique, a guide wire was advanced through the introducer needle without resistance. The introducer needle was removed. A small incision was made in penetrating fashion at the guide wire insertion site utilizing an 11 blade scalpel. The dilator was advanced to the vessel without resistance. The dilator was exchanged for the triple lumen catheter which was advanced into the vessel without resistance. The guide wire was removed intact from the catheter without issue. Claves were placed on each catheter tip with confirmation of good blood flow from each lumen. Each port was easily flushed with sterile saline. The catheter was placed at 20 cm and sutured in place. BioPatch was applied to the catheter and a sterile Tegaderm dressing was applied over the catheter with careful attention to sterility. Patient tolerated procedure well. No immediate complications were met. Post procedure x-ray was completed, placement was appropriate and no pneumothorax was noted. Images obtained are saved for permanent record Coding CPT Codes Tubes, Drains, and Vasc Access - Tubes, Drains, and Vasc Access: [id number] Insertion Of Non-tunneled Catheter Age 6 Yrs> ([id number]) [facility] [place] Procedure Codes (Charges) Tubes, Drains, and Vasc Access Procedure 1: Tubes, Drains, and Vasc Access: [id number] Insertion Of Non-tunneled Catheter Age 6 Yrs>
--- NOTE | 2023-08-31 07:21 | XRay Report ---
XR chest 1V portable HISTORY: 73 years-old Male lines acute respiratory failure COMPARISON: CTA chest of same day TECHNIQUE: AP view of the chest FINDINGS: Cardiac silhouette is enlarged. Endotracheal tube overlies the midline, 3.4 cm superior to the rios . Left subclavian catheter is noted with distal tip projected over the right atrium. No pneumothorax. Small pleural effusions. Emphysema with bibasilar consolidation. Patchy nodular areas of consolidati on are again noted, left greater than right. ORIF hardware of the ribs. IMPRESSION: 1. The endotracheal tube terminates 3.4 cm superior to the rios. 2. Small pleural effusions with bibasilar nodular consolidation redemonstrated. 3. Pulmonary emphysema. ACT 112: Negative or not required by law. The above report was generated using voice recognition software. It may contain grammatical, syntax o r spelling errors. Electronically signed by: Juan Carlos Rai M.D. 08/31/2023 7:20 AM
[2023-08-31] MEDS ORDERED: BACITRACIN OINT 14 GM TUBE ONE (07:26)
[2023-08-31] MEDS ORDERED: BUPIVACAINE 0.5 % 5 MG/1 ML MPF 30ML VIAL ONE (07:26)
[2023-08-31] MEDS ORDERED: LIDOCAINE 1% LOCAL 20 ML VIAL ONE (07:27)
[2023-08-31] MEDS ORDERED: VANCOMYCIN HCL 1000MG/20ML VIAL ONE (07:27)
[2023-08-31] MEDS ORDERED: propofoL 1,000 MG/100 ML VIAL IV SCH (07:30)
[2023-08-31] MEDS ORDERED: fentaNYL citrate 2,500 MCG/250 ML BAG IV SCH (07:30)
--- NOTE | 2023-08-31 07:30 | Procedure Note ---
Procedure Note Date of Service August 31, 2023 Note INTUBATION PROCEDURE NOTE: Proceduralist: Taran ELLISON ([facility]-) Attending: Adrien Seymour DO Emergent Consent was implied as patient is a full code [facility] [place] life threatening pathology. No immediate family members available. Patient was evaluated and required intubation for perforated abdomen with free air planing for emergent operation. Sedative agent used: Propofol 50mg Paralysis agent used: Rocuronium 50mg The patient was prepared in the appropriate fashion. Sedation was achieved utilizing Propofol and muscle relaxation was achieved using Rocuronium, per Dr. Seymour's administration. The patient was easily ventilated using [id number] to achieve adequate oxygenation. A 7.5 Serbian endotracheal tube was placed under videolaryngoscopy with grade I view to 24 cm at the lip. The stylette was removed and balloon was inflated with 10mL of air. Appropriate Colorimetric change was appreciated. Bilateral breath sounds were heard without air sounds in the abdomen. Dr. Seymour was present for the entire procedure. X Post Intubation Chest X-ray confirms placement without pneumothorax. Patient tolerated the procedure well and there were no immediate complications. Coding CPT Codes Resuscitation - Resuscitation: 98200 Endotracheal Intubation, emergency ([id number]) [facility] [place] Codes (Charges) Resuscitation Resuscitation: 80819 Endotracheal Intubation, emergency
--- NOTE | 2023-08-31 07:31 | Anesthesiology Consultation ---
Date of Service August 31, 2023 Assessment & Plan Chart Review Chart Review: Acceptable Risk for Surgery and Patient seen in Pre Admission Testing Consults Requested none ASA [id number] Proposed Anesthesia Anesthesia Type: General Anesthesia Line Insertion: Arterial line History Surgery Operation Date: 08/31/23 07:00 Proposed Procedures p Bowel Resection - Ken Sorenson MD Height/Weight Height: 5 ft 7 in Weight: 64 kg Allergies Allergy/AdvReac Type Severity Reaction Status Date / Time bee venom protein (honey bee) Allergy Severe Anaphylaxis Verified 08/26/23 19:49 ibuprofen [From Motrin] AdvReac Mild Rash Verified 08/26/23 19:13 Medications Home Medications Medication Instructions Recorded Confirmed Last Taken acetaminophen 325 mg tablet 650 mg PO Q4H PRN Pain (Scale 08/26/23 08/26/23 Unknown (Tylenol) Score 1-3) albuterol sulfate 90 mcg/actuation 1 puff inhalation Q6H PRN Wheezing 08/26/23 08/26/23 Unknown aerosol inhaler amiodarone 200 mg tablet 200 mg PO DAILY 08/26/23 08/26/23 Unknown amiodarone 200 mg tablet 200 mg PO Q12H 08/26/23 08/26/23 Unknown amiodarone 200 mg tablet 400 mg PO BID 08/26/23 08/26/23 Unknown apixaban 5 mg tablet (Eliquis) 5 mg PO Q12H 08/26/23 08/26/23 Unknown bisacodyl 10 mg rectal suppository 10 mg [place] DAILY PRN Constipation 08/26/23 08/26/23 Unknown cholecalciferol (vitamin D3) 50 50 mcg PO DAILY 08/26/23 08/26/23 Unknown mcg (2,000 unit) capsule (Vitamin D3) dextrose 40 % oral gel 1 ea PO DIRECTED PRN 08/26/23 08/26/23 Unknown Hypoglycemia docusate sodium 100 mg capsule 100 mg PO BID 08/26/23 08/26/23 Unknown hydroxychloroquine 200 mg tablet 200 mg PO Q12H 08/26/23 08/26/23 Unknown ipratropium 0.5 mg-albuterol 3 mg 3 ml inhalation Q4H 08/26/23 08/26/23 Unknown (2.5 mg base)/3 mL nebulization soln magnesium hydroxide 400 mg/5 mL 30 ml PO DAILY PRN Constipation 08/26/23 08/26/23 Unknown oral suspension (Milk of Magnesia) metoprolol tartrate 25 mg tablet 25 mg PO Q12H 08/26/23 08/26/23 Unknown multivitamin with minerals 1 tab PO DAILY 08/26/23 08/26/23 Unknown nortriptyline 25 mg capsule 50 mg PO DAILY 08/26/23 08/26/23 Unknown ondansetron HCl 4 mg tablet 4 mg PO Q4H PRN NAUSEA/VOMITING 08/26/23 08/26/23 Unknown pantoprazole 40 mg tablet,delayed 40 mg PO DAILYBB 08/26/23 08/26/23 Unknown release polyethylene glycol 3350 17 17 g PO QDL PRN Constipation 08/26/23 08/26/23 Unknown gram/dose oral powder (Miralax) prednisone 20 mg tablet 40 mg PO DAILY 08/26/23 08/26/23 Unknown sennosides 8.6 mg-docusate sodium 1 tab-cap PO QDL PRN Constipation 08/26/23 08/26/23 Unknown 50 mg tablet (Senokot-S) sodium phosphates 19 gram-7 118 ml [place] DAILY PRN Constipation 08/26/23 08/26/23 Unknown gram/118 mL enema (Fleet Enema) tizanidine 2 mg tablet 2 mg PO TID PRN MUSCLE SPASMS 08/26/23 08/26/23 Unknown tramadol 50 mg tablet 50 mg PO Q6H PRN Pain (Scale Score 08/26/23 08/26/23 Unknown 4-6) tramadol 50 mg tablet 100 mg PO Q6H PRN Pain (Scale 08/26/23 08/26/23 Unknown Score 7-10) umeclidinium 62.5 mcg/actuation 1 inh inhalation DAILY 08/26/23 08/26/23 Unknown blister powder for inhalation (Incruse Ellipta) zinc sulfate 50 mg zinc (220 mg) 50 mg PO DAILY 08/26/23 08/26/23 Unknown capsule Active Medications Generic Name Dose Route Start Last Admin Trade Name Freq PRN Reason Stop Dose Admin Albuterol 3 ml 08/30/23 07:00 08/30/23 19:41 Albut/Ipratrop 3mg/0.5mg Neb 3 Ml Vial INH 09/29/23 06:59 3 ml QIDR JOO Administration Protocol Amiodarone HCl 400 mg 08/26/23 23:04 08/30/23 22:39 Amiodarone 200 Mg Tab PO 09/25/23 23:03 400 mg BID JOO Administration Apixaban 5 mg 08/27/23 01:45 08/30/23 22:38 Apixaban 5 Mg Tablet PO 09/26/23 01:44 5 mg Q12 JOO Administration Docusate Sodium 100 mg 08/26/23 23:04 08/30/23 22:38 Docusate Sodium 100 Mg Cap PO 09/25/23 23:03 100 mg BID JOO Administration Folic Acid 1 mg 08/28/23 09:00 08/30/23 08:46 Folic Acid 1 Mg Tab PO 09/27/23 08:59 1 mg QAM JOO Administration Hydroxychloroquine Sulfate 200 mg 08/27/23 01:45 08/30/23 22:39 Hydroxychloroquine Sulfate 200 Mg Tab PO 09/26/23 01:44 200 mg Q12 JOO Administration Thiamine HCl 200 mg/ Sodium 52 mls @ 210 mls/hr 08/30/23 21:00 08/30/23 22:34 Chloride IV 09/29/23 20:59 Infused BID JOO Infusion Lactated Ringer's 1,000 mls @ 150 mls/hr 08/31/23 05:15 08/31/23 05:14 Lr IV 09/30/23 05:14 150 mls/hr .Q6H40M JOO Administration Pantoprazole Sodium 40 mg/ 10 mls @ 5 mls/min 08/31/23 05:40 08/31/23 06:00 Syringe IV 09/30/23 05:39 5 mls/min BID JOO Administration Metoprolol Tartrate 50 mg 08/30/23 21:00 08/30/23 22:38 Metoprolol Tartrate 50 Mg Tab PO 09/29/23 20:59 50 mg Q12 JOO Administration Multivitamins/Minerals 1 tab 08/28/23 09:00 08/30/23 08:47 Cerovite Adv Formula Tab PO 09/27/23 08:59 1 tab QAM JOO Administration Pantoprazole Sodium 40 mg 08/27/23 06:30 08/31/23 06:22 Pantoprazole 40 Mg Tab PO 09/26/23 06:29 Not Given DAILYBB JOO Senna/Docusate Sodium 1 tab 08/26/23 23:04 08/27/23 21:50 Docusate Sodium/Senna 50/8.6mg Tab PO 09/25/23 23:03 1 tab QDL PRN Administration Constipation Umeclidinium [place] 1 puffs 08/27/23 09:00 08/30/23 08:49 Umeclidinium [place] 62.5mcg/Blister 7 Puffs/Inhaler INH 09/26/23 08:59 1 puffs DAILY JOO Administration Zinc Sulfate 220 mg 08/27/23 09:00 08/30/23 08:47 Zinc Sulfate 220 Mg Capsule PO 09/26/23 08:59 220 mg DAILY JOO Administration NPO Last Intake of Fluids Comment: unknown dr. taye carney pt already intubated Last Intake of Solids Comment: unknown dr taye carney pt already intubated Past Medical History Medical History (Updated 08/31/23 @ 07:05 by Ken oSrenson MD) Abnormal CT scan, chest CKD (chronic kidney disease), stage IV Acute metabolic encephalopathy Severe protein-calorie malnutrition COPD (chronic obstructive pulmonary disease) Polymyalgia rheumatica Stress-induced cardiomyopathy SHEBA (acute kidney injury) Alcohol abuse Paroxysmal A-fib Aspiration pneumonia Social History Smoking Status: Former smoker Do You Dip or Chew Tobacco: No Hx Alcohol Use: Yes Alcohol type: beer and hard liquor alcohol intake frequency: 3 or more drinks per day Hx Substance Use: No Review of Systems Constitutional: as per Subjective / HPI Eyes: as per Subjective / HPI Neurologic: as per Subjective / HPI Psychiatric: as per Subjective / HPI Endocrine: as per Subjective / HPI Physical Exam Vital Signs Last Vital Signs Temp 36.9 C 08/31/23 07:14 Pulse 82 08/31/23 07:14 Resp 28 H 08/31/23 07:14 BP 104/71 08/31/23 07:14 Pulse Ox 100 08/31/23 07:14 O2 Del Method Mechanical Vent 08/31/23 07:14 O2 Flow Rate 5 08/31/23 06:28 FiO2 55 08/26/23 21:00 Constitutional WD/WN, vitals as above Eyes PERRL, conjunctivae normal, anicteric sclerae Neck trachea midline, no thyromegaly Respiratory no respiratory distress, no labored breathing and no cough Auscultation: lungs clear to auscultation bilaterally and + rhonchi; no wheezes Cardiovascular RRR, no murmur, no edema Rate/Rhythm: + irregularly irregular Gastrointestinal (Abdomen) normal bowel sounds, soft, nontender, no hepatosplenomegaly Musculoskeletal Extremities: extremities normal to inspection Skin no rashes, warm and dry Lymphatic no cervical lymphadenopathy Testing Laboratory Results 08/31/23 04:27 08/31/23 04:27 PT 14.3 Seconds (9.0-12.0) H 08/26/23 17:47 INR 1.3 (0.9-1.1) H 08/26/23 17:47 APTT 27 Seconds (21-31) 08/26/23 17:47 Urine Color Yellow 08/26/23 21:22 Urine Appearance Cloudy (Clear) A 08/26/23 21:22 Urine pH 5.5 (4.5-7.5) 08/26/23 21:22 Ur Specific [place] >= 1.030 (1.000-1.030) 08/26/23 21:22 Urine Protein 3+ (Negative) H 08/26/23 21:22 Urine Glucose (UA) Negative (Negative) 08/26/23 21:22 Urine Ketones Negative (Negative) 08/26/23 21:22 Urine Nitrite Negative (Negative) 08/26/23 21:22 Ur Leukocyte Esterase Trace (Negative) H 08/26/23 21:22 Urine WBC (Auto) Cancelled 08/26/23 21:22 Urine RBC (Auto) Cancelled 08/26/23 21:22 U Hyaline Cast (Auto) Cancelled 08/26/23 21:22 U Epithel Cells (Auto) Cancelled 08/26/23 21:22 Urine Bacteria (Auto) Cancelled 08/26/23 21:22 Blood Type B Positive 08/31/23 06:21 Antibody Screen NEGATIVE 08/31/23 06:21 08/26/23 17:46 Aerobic Blood Culture - Preliminary Blood No growth in Aerobic bottle after 48 hours. Anaerobic Blood Culture - Final 08/26/23 17:47 Aerobic Blood Culture - Preliminary Blood No growth in Aerobic bottle after 48 hours. Anaerobic Blood Culture - Preliminary No growth in Anaerobic bottle after 48 hours.
[2023-08-31] MEDS: ALBUT/IPRATROP 3MG/0.5MG NEB 3 ML VIAL INH SCH (08:17)
[2023-08-31] MEDS: FOLIC ACID 1 MG TAB PO SCH (08:18)
[2023-08-31] MEDS: AMIODARONE 200 MG TAB PO SCH (08:18)
[2023-08-31] MEDS: HYDROXYCHLOROQUINE SULFATE 200 MG TAB PO SCH (08:18)
[2023-08-31] MEDS: METOPROLOL TARTRATE 50 MG TAB PO SCH (08:18)
[2023-08-31] MEDS: CEROVITE ADV FORMULA TAB PO SCH (08:18)
[2023-08-31] MEDS: DOCUSATE SODIUM 100 MG CAP PO SCH ×2 (08:18→19:44)
[2023-08-31] MEDS: UMECLIDINIUM BROMIDE 62.5MCG/BLISTER 7 PUFFS/INHALER INH SCH (08:19)
[2023-08-31] MEDS: THIAMINE HCL 200 MG in SODIUM CHLORIDE 0.9% 50 ML IV SCH ×2 (08:19→19:45)
[2023-08-31] MEDS: ZINC SULFATE 220 MG CAPSULE PO SCH (08:19)
[2023-08-31] MEDS ORDERED: predniSONE 20 MG TAB PO SCH (09:00)
[2023-08-31] MEDS ORDERED: ROCURONIUM BROMIDE 10 MG/ML 5 ML VIAL IV ONE ×2 (09:09→15:16)
--- NOTE | 2023-08-31 09:50 | Post Operative Brief Note ---
Immediate Post Op Note v1 Date of Surgery August 31, 2023 Pre & Post Diagnosis Operation Date: 08/31/23 07:00 Pre-Op Diagnosis:pneumoperitoneum Perforated cecum Bowel post-op diagnosis: pneumoperitoneum, pelvic abscess Perforated cecum Bowel I identified the patient and participated in the time-out.: Yes Procedure Operation Date: 08/31/23 07:00 Actual Procedures p Exploratory Laparotomy , partial resection cecum, drainage pelvic abscess- Ken Sorenson MD Surgeon Ken Sorenson MD [employer] infectious disease technician Estimated Blood Loss 10 Findings Consistent with Post-Op Diagnosis perforation cecum, pelvic abscess Fluids 1000ml Specimens partial cecum Drains Mcintosh Catheter and Adriel-Mishra Drain Anesthesia Type General Complications none Disposition Accompanied Patient To Recovery: Yes
[2023-08-31] MEDS ORDERED: VANCOMYCIN CONSULT ACTIVE PRN ×2 (10:04)
[2023-08-31] MEDS ORDERED: PHENYLEPHRINE 100MCG/ML 10ML SYR IV ONE (10:23)
[2023-08-31] MEDS ORDERED: ONDANSETRON 4 MG OD TAB PO PRN (10:28)
[2023-08-31] MEDS ORDERED: ALBUTEROL HFA 8 GM INHALER INH PRN (10:28)
[2023-08-31] MEDS ORDERED: AMIODARONE 200 MG TAB PO SCH (10:28)
[2023-08-31] MEDS ORDERED: bisacodyL 10 MG SUPP PR PRN (10:28)
[2023-08-31] MEDS ORDERED: HYDROmorphone INJ 1 MG/ML SYRINGE IV PRN (10:28)
[2023-08-31] MEDS ORDERED: oxyCODONE/ACETAMINOPHEN 5mg/325mg TAB PO PRN (10:28)
[2023-08-31] MEDS ORDERED: VANCOMYCIN HCL 1,250 MG in SODIUM CHLORIDE 0.9% 500 ML IV ONE (10:30)
--- NOTE | 2023-08-31 10:31 | Operative Report ---
Post Operative Report Pre & Post Diagnosis Operation Date: 08/31/23 07:00 Pre-Op Diagnosis: Perforated Bowel Pneumoperitonum Post-Op Diagnosis: Pneumoperitonum Cecum Perforation with Abscess I identified the patient and participated in the time-out.: Yes Procedure Operation Date: 08/31/23 07:00 Actual Procedures p Exploratory Laparotomy and Partial Resection of Cecum with Drainage of Pelvic Abscess - Ken Sorenson MD Surgeon Ken Sorenson MD [employer] Estimated Blood Loss 10 Findings Consistent with Post-Op Diagnosis cecum perforation, pelvic abscess Fluids 1000ml Specimens partial cecum Drains JUSTINA drainage Anesthesia Type General Complications none Disposition Accompanied Patient To Recovery: Yes Indications Patient is a 73 years old gentleman with a CT scan finding pneumoperitoneum, possible perforation bowel. I recommend to do emergency exploratory laparotomy possible bowel resection possible stoma. I did talk to patient daughter Hortencia Porras on the phone. Discussion about the benefit the risk and alternate of the procedure. I indicated the risks may include but not limited such as bleeding, infection, abscess, sepsis, injury other organs, multiple organ failure, AK, DVT, stroke, anastomotic leak, incisional hernia, , and poor prognosis. patient's daughter understood. She will agree with the surgery, she gave consent on the phone. I answered all questions. pre-op iv antibiotic. Description of Procedure After the identified patient verify procedure, we brought patient to the OR put the patient on the supine position on the OR table. Patient received a SCD on bilateral leg to prevent DVT. Also patient received IV antibiotic Unasyn before go to the OR. Patient received general anesthesia without difficulty. The abdomen was a prepped and dropped in routine sterile fashion. After timeout. I made a midline incision, the incision lines about the 15 cm, dissection to subcutaneous there are reaches the external facial layer. Open fashion and p eritoneum. Against the abdomen without difficulty. Some air come out immediately after the open the peritoneal. Patient has a lot of yellow flow inside the abdomen. They suctioned out yellow fluid was sent to culture. They found the patient had abscess in the pelvic area. Abscess size about 2 x 3 cm , we suction the abscess. We looked at the small bowel intact. Patient had a perforation of the cecum area. The perforation size about 0 x 5 x 0.5 cm. Some stool leak from perforation. All tissue around the perforation were viable. Based on the patient was on Eliquis and the comorbidity severe COPD, atrial fibrillation, stage 4 chronic renal disease. I decided to minimal partial sigmoid resection. Uses TA 60 staple close perforation the portion of the cecum. Removal partial perforated cecum sent to pathology. I used 3-0 Vicryl reinforced staple line. Recheck at the staple line intact no active bleeding or leak. I used omental coverings staple line. I used the 1 g vancomycin and 1 L warm saline flush prepped abdomen. Suction all fluid out. Up with a 1 JUSTINA drainage or on right lower quadrant area, I used 3-0 nylon fixes JUSTINA on the skin. Hemostat is obtained. Close the fascial layer by using #1 PDS continuous running. Close subcutaneous therapy using 2-0 Vicryl continuous running. Close skin by using staplers. Put the dressing on. The patient tolerated procedure well. All instrument needle sponge count correct x 2 8 in the case. Patient transferred to ICU in stable condition. After procedure I did talk to patient daughter about the OR finding procedure we did. Patient understood. I answered all questions. Specimen sent to pathology. I attest to the content of the Intraoperative Record and any orders documented therein. Any exceptions are noted below.
[2023-08-31] MEDS: PIPER/TAZO 4.5g in D5W MINI-B 100 ML IV SCH ×2 (10:36→19:44)
[2023-08-31] MEDS ORDERED: fentaNYL citrate PF 100 MCG/2 ML VIAL IV PRN ×2 (10:40)
[2023-08-31] MEDS: propofoL 1,000 MG/100 ML VIAL IV SCH ×2 (10:54→18:32)
[2023-08-31] MEDS: D5W AND 1/2NSS + 20MEQ KCL 20 MEQ/1,000 ML BAG IV SCH ×2 (11:02→19:44)
--- NOTE | 2023-08-31 11:04 | Pharmacy Report ---
Pharmacy PK ABX Note - Date of Service August 31, 2023 - Assessment and Plan Assessment 73 year old M receiving vancomycin and zosyn for treatment of pneumoperitoneum (and pneumonia). POD #0 exp lap and partial cecum resection w/ drainage of pelvic abscess. Blood and peritoneal fluid cultures pending. (+) SHEBA (SCr 2.18, decreased UOP), however unknown baseline. Intubated and sedated. Day #1 of antimicrobial therapy. Plan Vancomycin * Loading dose: 1250 mg IV x 1 * Due to fluctuating renal function and elevated SCr, will dose by levels. * Random level tomorrow AM to guide further dosing Pharmacy will continue to follow and will adjust dose/frequency as necessary. Thank you. Pharmacy has transitioned to AUC monitoring for vancomycin. AUC/ARISTIDES is the preferred PK/PD target and is associated with decreased risk of nephrotoxicity compared to traditional trough targets.
--- NOTE | 2023-08-31 11:23 | XRay Report ---
XR chest 1V portable HISTORY: 73 years-old Male ett placement acute respiratory failure COMPARISON: 08/31/2023 TECHNIQUE: AP view of the chest FINDINGS: Endotracheal tube overlies the midline, 3 cm superior to the rios. Left subclavian catheter is agai n noted with distal tip projected over the right atrium. Distal tip of enteric tube projects over the gastric body. Cardiac silhouette is enlarged. No pneumothorax. Small pleural effusions. Emphysema with bibasilar co nsolidation. Patchy nodular areas of consolidation are again noted, left greater than right. ORIF sudhakar dware of the ribs. IMPRESSION: 1. Lines and tubes as above. 2. No pneumothorax. 3. Unchanged appearance of the lungs. ACT 112: Negative or not required by law. The above report was generated using voice recognition software. It may contain grammatical, syntax o r spelling errors. Electronically signed by: Juan Carlos Rai M.D. 08/31/2023 11:22 AM
--- NOTE | 2023-08-31 11:25 | Anesthesiology Progress Note ---
Date of Service August 31, 2023 Anesthesia Post Procedure Vital Signs Vital Signs: Temp Pulse Pulse Pulse Resp BP BP 08/31/23 10:10 65 18 08/31/23 10:10 36.5 C 71 22 08/31/23 10:10 159/87 H 08/31/23 10:05 162/87 H 08/31/23 10:05 18 08/31/23 10:04 14 08/31/23 08:29 08/31/23 08:00 08/31/23 07:55 80 18 08/31/23 07:50 88/63 L 08/31/23 07:50 81 18 08/31/23 07:45 93/65 L 08/31/23 07:45 82 18 08/31/23 07:40 85 18 08/31/23 07:40 103/68 08/31/23 07:35 105/71 08/31/23 07:35 83 18 08/31/23 07:30 122/75 08/31/23 07:30 84 27 H 08/31/23 07:25 82 18 08/31/23 07:25 104/70 08/31/23 07:20 104/71 08/31/23 07:20 82 18 08/31/23 07:15 108/70 08/31/23 07:15 82 18 08/31/23 07:14 36.9 C 82 28 H 08/31/23 07:00 81 19 08/31/23 07:00 101/56 L 08/31/23 07:00 81 18 08/31/23 06:55 103/50 L 08/31/23 06:55 82 18 08/31/23 06:50 84 18 08/31/23 06:50 103/58 L 08/31/23 06:48 108/67 08/31/23 06:48 86 16 08/31/23 06:45 89 31 H 08/31/23 06:43 111/78 08/31/23 06:35 91 H 38 H 08/31/23 06:30 91 H 43 H 08/31/23 06:28 36.7 C 92 H 42 H 08/31/23 05:34 36 H 137/77 08/31/23 04:53 93 H 22 135/87 08/31/23 04:03 95 H 37 H 123/88 08/31/23 03:49 95 H 39 H 105/67 08/31/23 03:13 36.7 C 36 H 145/91 H 08/31/23 01:55 92 H 08/30/23 23:00 08/30/23 22:57 37.2 C 96 H 18 189/107 H 08/30/23 21:26 167/93 H 08/30/23 20:00 08/30/23 20:00 165/102 H 08/30/23 19:41 91 H 18 08/30/23 19:31 36.7 C 92 H 20 178/110 H 08/30/23 16:00 88 08/30/23 14:58 36.7 C 90 18 156/96 H 08/30/23 14:09 87 18 BP Pulse Ox Pulse Ox O2 Del Method O2 Del Method O2 Flow Rate FiO2 08/31/23 10:10 100 70 08/31/23 10:10 100 08/31/23 10:10 08/31/23 10:05 08/31/23 10:05 100 08/31/23 10:04 100 08/31/23 08:29 70 08/31/23 08:00 Mechanical Vent 08/31/23 07:55 100 08/31/23 07:50 08/31/23 07:50 100 08/31/23 07:45 08/31/23 07:45 100 08/31/23 07:40 100 08/31/23 07:40 08/31/23 07:35 08/31/23 07:35 100 08/31/23 07:30 08/31/23 07:30 100 08/31/23 07:25 100 08/31/23 07:25 08/31/23 07:20 08/31/23 07:20 100 08/31/23 07:15 08/31/23 07:15 100 08/31/23 07:14 104/71 100 Mechanical Vent 08/31/23 07:00 100 100 08/31/23 07:00 08/31/23 07:00 100 08/31/23 06:55 08/31/23 06:55 100 08/31/23 06:50 100 08/31/23 06:50 08/31/23 06:48 08/31/23 06:48 100 08/31/23 06:45 100 08/31/23 06:43 08/31/23 06:35 08/31/23 06:30 08/31/23 06:28 144/100 H 100 Oxymask 5 08/31/23 05:34 95 Oxymask 5 08/31/23 04:53 100 Oxymask 5 08/31/23 04:03 100 Oxymask 10 08/31/23 03:49 08/31/23 03:13 94 Nasal Cannula 3 08/31/23 01:55 08/30/23 23:00 95 Nasal Cannula 08/30/23 22:57 94 Nasal Cannula 2 08/30/23 21:26 08/30/23 20:00 Nasal Cannula 08/30/23 20:00 08/30/23 19:41 92 Nasal Cannula 2 08/30/23 19:31 93 Nasal Cannula 2 08/30/23 16:00 08/30/23 14:58 93 Nasal Cannula 2.0 08/30/23 14:09 89 L Nasal Cannula 2 Transfer of Care Handoff Completed per policy Notes Mental Status: see notes below Patient Amnestic to Procedure: Yes Nausea / Vomiting: adequately controlled Pain: see Notes below Airway Patency, RR, SpO2: stable & adequate BP & HR: stable & adequate Hydration State: stable & adequate Anesthetic Complications: no major complications apparent Notes: pt sedated and on vent
--- NOTE | 2023-08-31 11:57 | XRay Report ---
KUB HISTORY: Evaluate NG tube placement. COMPARISON: KUB 08/30/2023. FINDINGS: Nasogastric tube terminates in the proximal stomach. The fenestrated line is at the gastroe sophageal junction. Surgical drain and skin angela are seen within the midabdomen. There is residual barium contrast within the colon. No dilated loops of small bowel to suggest an obstruction. Postope rative changes within the ribs. No renal calculi. No ureteral calculi. No pneumoperitoneum or pneuma tosis. IMPRESSION: 1. Nasogastric tube terminates at the proximal stomach. The fenestrated line is at the gastroesophage al junction. This could be advanced by approximately 5 cm. 2. Interval postoperative changes. No dilated loops of small bowel to suggest a small bowel obstructi on. ACT 112: Negative or not required by law. Electronically signed by: Jamie Blanchard M.D. 08/31/2023 11:56 AM
[2023-08-31] MEDS ORDERED: PLASMA-LYTE A 500 ML IV ONE ×3 (13:50→18:39)
--- NOTE | 2023-08-31 17:14 | Hospitalist Progress Note ---
Date of Service August 31, 2023 Assessment & Plan (1) Perforated viscus: Plan: Reported to have had possible SBO while in ICU at previous hospital, resolved Developed worsening sepsis and abdominal distention 08/30. CT abdomen and pelvis obtained revealed perforated abdomen. Required admission to ICU, intubation, mechanical ventilation and central line placement early AM 08/31. Underwent laparotomy 08/[address] Sorenson with finding of pneumoperitoneum due to perforated cecum and associated abscess. Abscess was drained and cecum was partially resected -remains critically ill, ventilator and hemodynamics managed by critical care team -continue broad-spectrum IV antibiotics: pip-tazo, vancomycin pending cultures -await return of bowel function -await pathology (2) Intra-abdominal abscess: Plan: as above (3) Acute hypoxic respiratory failure: Plan: 2nd to pneumonia - multifocal airspace infiltrates present on admission chest CT and on CTA 08/31 which I reviewed -aspiration pneumonia is possible, passed VFSS however -was on steroids earlier this admission, discontinued -continue mechanical vent, intubated 08/31 -continue abx as above (4) Sepsis: Plan: Initially entirely attributed to pneumonia, later bowel perforation and abscess. -as above -follow blood cultures, urine culture (5) Multiple pulmonary nodules: Plan: Extensive bilateral pulmonary masses present, largest in PATEL, consistent with metastatic disease of note - he did have bronchoscopy while on the vent in [place] - 08/06/23 - no endobronchial lesions seen -per review of supervisor instrument mechanics's conversation with his family 08/31 he would not want to undergo chemotherapy or other cancer treatment thus no biopsy planned at this time -MRI brain w/wo planned. reportedly had one in [place], no report available and unknown whether with contrast -hypodensity in/below liver poorly visualized on contrast CT (6) Acute metabolic encephalopathy: Plan: multifactorial - hospital psychosis, sepsis, pneumonia; can't rule out nutritional deficiencies (Wernicke's, etc). -currently intubated and sedated B12 wnl. B1 level pending - thiamine 500mg IV q8h x 2 days, then 200mg BID thereafter (due to h/o alcoholism). (7) Pneumonia: Plan: see above (8) SHEBA (acute kidney injury): Plan: SHEBA on presumed CKD Baseline renal function? limited records show Cr 1.5 on 08/25/23 prior to d/c from [facility] Cr had improved down to 1.6 yesterday but now back to 2. -follow BMP and UOP -CT contrast for emergency studies 08/31 -avoid nephrotoxins (9) Elevated troponin: Plan: Peak HS trop 79. Likely myocardial demand ischemia. Doubt ACS. (10) COPD (chronic obstructive pulmonary disease): Plan: Emphysema noted on chest CTs -continue bronchodilators (11) Alcohol abuse: Plan: Long standing history of such. Went thru withdrawal at [facility]. Had etoh withdrawal seizures by report. Check B1 level. Should be on MVI/thiamine/folate supplementation - ordered. no evidence of any ongoing withdrawal. last etoh beverage is 30+ days ago. (12) Paroxysmal A-fib: Plan: Had such while at [facility]. -amiodarone and apixaban held (13) Polymyalgia rheumatica: Plan: Sees rheum for such. On chronic steroids - basal dose uncertain. Stress dose steroids if hypotension/shock develops Await records from [place]. (14) Severe protein-calorie malnutrition: Plan: Patient cachectic, etc. -evaluation manager consult -start enteral nutrition when bowel function returns (15) Rheumatoid arthritis: Plan: On prednisone + plaquenil chronically for such. No evidence of RA flare. (16) Unilateral vocal cord paralysis: Plan: Due to intubation/ventilation years ago at [facility] following a logging accident. (17) Anemia: Plan: H/H stable. B12, folate, Fe studies wnl. Likely anemia of chronic disease from RA, bone marrow suppression from etoh, blood draws, etc. (18) DVT prophylaxis: Plan: Eliqucaden held -resume ppx once safe postop -SCDs Plan family at bedside today extensively updated by supervisor instrument mechanics this afternoon, they stated he would not want chemotherapy if cancer confirmed, changed resus status to DNR/DNI only have about 1/2 the records from [facility] - we have requested records again, particularly radiological reports and micro reports Admission and Anticipated Discharge Date Admission Date: August 26, 2023 Subjective Intubated. Physical Exam 2 Physical Exam: PHYSICAL EXAMINATION Last 24h vital signs reviewed, see documentation in flowsheet General: sedated and mechanically ventilated HEENT: intubated, OG tube, dry mucus membranes Lungs: CTA bilaterally anteriorly Heart: Regular rate and rhythm, no murmurs. No JVD L SC TLC in place Abdomen: firm, abdominal binder, suction sounds, no BT Extremities: Warm, dry, well-perfused. No extremity edema. Neuro: sedated, grimaced to exam Skin: w/d no rash Psych: unable to assess Results & Data Results & Data Vital Signs (Past 12 Hours) Vital Signs Temp Pulse Pulse Resp BP BP BP 08/31/23 15:30 77 20 08/31/23 14:35 99/59 L 08/31/23 14:35 37.3 C 72 21 08/31/23 14:30 37.3 C 74 22 08/31/23 14:30 102/61 08/31/23 14:25 37.3 C 73 18 08/31/23 14:25 102/63 08/31/23 14:20 37.3 C 73 20 08/31/23 14:20 112/67 08/31/23 14:15 37.3 C 74 20 08/31/23 14:15 112/67 08/31/23 14:10 112/68 08/31/23 14:10 37.3 C 74 20 08/31/23 14:05 112/67 08/31/23 14:05 37.3 C 74 20 08/31/23 14:00 37.3 C 75 22 08/31/23 13:55 94/60 L 08/31/23 13:55 37.2 C 75 26 H 08/31/23 13:50 83/53 L 08/31/23 13:50 36.0 C L 75 21 08/31/23 13:45 81/55 L 08/31/23 13:45 36.6 C 75 20 08/31/23 13:40 87/56 L 08/31/23 13:40 37.0 C 75 19 08/31/23 13:35 37.0 C 75 20 08/31/23 13:35 83/56 L 08/31/23 13:30 90/58 L 08/31/23 13:30 37.0 C 75 20 08/31/23 13:25 36.9 C 75 18 08/31/23 13:25 93/61 L 08/31/23 13:20 93/62 L 08/31/23 13:20 36.9 C 75 19 08/31/23 13:15 36.9 C 75 18 08/31/23 13:15 96/63 L 08/31/23 13:10 97/64 L 08/31/23 13:10 36.9 C 75 18 08/31/23 13:05 96/64 L 08/31/23 13:05 36.8 C 76 18 08/31/23 13:00 36.8 C 76 18 08/31/23 13:00 104/69 08/31/23 12:55 100/68 08/31/23 12:55 76 18 08/31/23 12:50 105/69 08/31/23 12:50 35.9 C L 75 18 08/31/23 12:45 102/68 08/31/23 12:45 31.1 C L 75 18 08/31/23 12:40 97/65 L 08/31/23 12:40 29.5 C L 75 18 08/31/23 12:35 75 18 08/31/23 12:35 93/64 L 08/31/23 12:30 96/66 L 08/31/23 11:20 111/72 08/31/23 11:20 35.9 C L 77 18 08/31/23 11:15 112/73 08/31/23 11:15 35.9 C L 77 18 08/31/23 11:10 114/75 08/31/23 11:10 36.4 C L 77 18 08/31/23 11:05 108/72 08/31/23 11:05 36.3 C L 78 17 08/31/23 11:00 109/71 08/31/23 11:00 36.4 C L 77 18 08/31/23 10:55 111/75 08/31/23 10:55 36.4 C L 78 18 08/31/23 10:50 120/75 08/31/23 10:50 36.1 C L 79 18 08/31/23 10:45 36.4 C L 0 L 25 H 08/31/23 10:45 125/79 08/31/23 10:40 36.1 C L 78 23 08/31/23 10:40 111/71 08/31/23 10:35 121/75 08/31/23 10:35 36.0 C L 78 18 08/31/23 10:30 36.4 C L 77 18 08/31/23 10:30 123/75 08/31/23 10:25 123/75 08/31/23 10:25 36.4 C L 77 18 08/31/23 10:20 133/79 08/31/23 10:20 36.4 C L 71 26 H 08/31/23 10:15 162/90 H 08/31/23 10:15 36.4 C L 78 18 08/31/23 10:10 65 18 08/31/23 10:10 36.5 C 71 22 08/31/23 10:10 159/87 H 08/31/23 10:05 162/87 H 08/31/23 10:05 18 08/31/23 10:04 14 08/31/23 08:29 08/31/23 08:00 08/31/23 07:55 80 18 08/31/23 07:50 88/63 L 08/31/23 07:50 81 18 08/31/23 07:45 93/65 L 08/31/23 07:45 82 18 08/31/23 07:40 85 18 08/31/23 07:40 103/68 08/31/23 07:35 105/71 08/31/23 07:35 83 18 08/31/23 07:30 122/75 08/31/23 07:30 84 27 H 08/31/23 07:25 82 18 08/31/23 07:25 104/70 08/31/23 07:20 104/71 08/31/23 07:20 82 18 08/31/23 07:15 108/70 08/31/23 07:15 82 18 08/31/23 07:14 36.9 C 82 28 H 104/71 08/31/23 07:00 81 19 08/31/23 07:00 101/56 L 08/31/23 07:00 81 18 08/31/23 06:55 103/50 L 08/31/23 06:55 82 18 08/31/23 06:50 84 18 08/31/23 06:50 103/58 L 08/31/23 06:48 108/67 08/31/23 06:48 86 16 08/31/23 06:45 89 31 H 08/31/23 06:43 111/78 08/31/23 06:35 91 H 38 H 08/31/23 06:30 91 H 43 H 08/31/23 06:28 36.7 C 92 H 42 H 144/100 H 08/31/23 05:34 36 H 137/77 Pulse Ox O2 Del Method O2 Flow Rate FiO2 08/31/23 15:30 100 55 08/31/23 14:35 08/31/23 14:35 100 08/31/23 14:30 100 08/31/23 14:30 08/31/23 14:25 100 08/31/23 14:25 08/31/23 14:20 100 08/31/23 14:20 08/31/23 14:15 100 08/31/23 14:15 08/31/23 14:10 08/31/23 14:10 100 08/31/23 14:05 08/31/23 14:05 100 08/31/23 14:00 100 08/31/23 13:55 08/31/23 13:55 100 08/31/23 13:50 08/31/23 13:50 100 08/31/23 13:45 08/31/23 13:45 100 08/31/23 13:40 08/31/23 13:40 100 08/31/23 13:35 100 08/31/23 13:35 08/31/23 13:30 08/31/23 13:30 100 08/31/23 13:25 100 08/31/23 13:25 08/31/23 13:20 08/31/23 13:20 100 08/31/23 13:15 100 08/31/23 13:15 08/31/23 13:10 08/31/23 13:10 100 08/31/23 13:05 08/31/23 13:05 100 08/31/23 13:00 100 08/31/23 13:00 08/31/23 12:55 08/31/23 12:55 100 08/31/23 12:50 08/31/23 12:50 100 08/31/23 12:45 08/31/23 12:45 100 08/31/23 12:40 08/31/23 12:40 100 08/31/23 12:35 100 08/31/23 12:35 08/31/23 12:30 08/31/23 11:20 08/31/23 11:20 100 08/31/23 11:15 08/31/23 11:15 100 08/31/23 11:10 08/31/23 11:10 100 08/31/23 11:05 08/31/23 11:05 100 08/31/23 11:00 08/31/23 11:00 100 08/31/23 10:55 08/31/23 10:55 100 08/31/23 10:50 08/31/23 10:50 100 08/31/23 10:45 100 08/31/23 10:45 08/31/23 10:40 100 08/31/23 10:40 08/31/23 10:35 08/31/23 10:35 100 08/31/23 10:30 100 08/31/23 10:30 08/31/23 10:25 08/31/23 10:25 100 08/31/23 10:20 08/31/23 10:20 100 08/31/23 10:15 08/31/23 10:15 100 08/31/23 10:10 100 70 08/31/23 10:10 100 08/31/23 10:10 08/31/23 10:05 08/31/23 10:05 100 08/31/23 10:04 100 08/31/23 08:29 70 08/31/23 08:00 Mechanical Vent 08/31/23 07:55 100 08/31/23 07:50 08/31/23 07:50 100 08/31/23 07:45 08/31/23 07:45 100 08/31/23 07:40 100 08/31/23 07:40 08/31/23 07:35 08/31/23 07:35 100 08/31/23 07:30 08/31/23 07:30 100 08/31/23 07:25 100 08/31/23 07:25 08/31/23 07:20 08/31/23 07:20 100 08/31/23 07:15 08/31/23 07:15 100 08/31/23 07:14 100 Mechanical Vent 08/31/23 07:00 100 100 08/31/23 07:00 08/31/23 07:00 100 08/31/23 06:55 08/31/23 06:55 100 08/31/23 06:50 100 08/31/23 06:50 08/31/23 06:48 08/31/23 06:48 100 08/31/23 06:45 100 08/31/23 06:43 08/31/23 06:35 08/31/23 06:30 08/31/23 06:28 100 Oxymask 5 08/31/23 05:34 95 Oxymask 5 Laboratory Results 08/31/23 04:27 08/31/23 04:27 Diagnostic Findings Abdomen/Pelvis CT 08/31/23 03:58 CR Exam(s): CT ABDOMEN + PELVIS With Contrast IV Amt: 117 ml optiray 320 EXAM: CT Abdomen and Pelvis With Intravenous Contrast CLINICAL HISTORY: Pain. TECHNIQUE: Axial computed tomography images of the abdomen and pelvis with intravenous contrast. Automated exposure control was utilized for the study. A dose lowering technique was utilized adhering to the principles of ALARA. CONTRAST: Patient received 117 ml optiray 320 of IV contrast COMPARISON: No relevant prior studies available. FINDINGS: Lung bases: Unremarkable. No mass. No consolidation. ABDOMEN: Liver: Unremarkable. No mass. Gallbladder and bile ducts: Unremarkable. No calcified stones. No ductal dilation. Pancreas: Unremarkable. No mass. No ductal dilation. Spleen: Unremarkable. No splenomegaly. Adrenals: Unremarkable. No mass. Kidneys and ureters: Unremarkable. No solid mass. No hydronephrosis. Stomach and bowel: Pooling hyperdensity within the lumen of the distal small bowel. Diverticulosis. See below. No definitive evidence of obstruction. PELVIS: Appendix: No findings to suggest acute appendicitis. Bladder: Unremarkable. No mass. Reproductive: Unremarkable as visualized. ABDOMEN and PELVIS: Intraperitoneal space: Significant free air in the abdomen is concerning for bowel perforation. This is of the small bowel in origin as there is marked thickening of the mid and distal small bowel wall. There is a small amount of free fluid in the abdomen and pelvis which is nonspecific. Question loculated fluid in the right lower quadrant, although this is nonspecific. Bones/joints: There are degenerative changes of the spine. No acute fracture. No dislocation. Soft tissues: Nonspecific body wall edema. Vasculature: Mild atherosclerosis. No abdominal aortic aneurysm. Lymph nodes: Unremarkable. No enlarged lymph nodes. IMPRESSION: 1. Significant free air in the abdomen is concerning for bowel perforation. This is of the small bowel in origin as there is marked thickening of the mid and distal small bowel wall. 2. Pooling hyperdensity within the lumen of the distal small bowel. This is concerning for active GI bleed. 3. There is a small amount of free fluid in the abdomen and pelvis which is nonspecific. Question loculated fluid in the right lower quadrant, although this is nonspecific. 4. Nonspecific body wall edema. 5. Diverticulosis. Communications: 08/31/23 05:34 Call Doctor Regarding Above results, called Dr. Holley on 08/31 05:34 (-05:00) Electronically signed by: Fay Moffett MD 08/31/23 05:41 AM Chest CTA 08/31/23 04:28 Exam(s): CTA CHEST IV Amt: 117 ml optiray 320 EXAM: CT Angiography Chest With Intravenous Contrast CLINICAL HISTORY: Pulmonary embolus. TECHNIQUE: Axial computed tomographic angiography images of the chest with intravenous contrast. Automated exposure control was utilized for the study. A dose lowering technique was utilized adhering to the principles of ALARA. MIP reconstructed images were created and reviewed. COMPARISON: No relevant prior studies available. FINDINGS: Pulmonary arteries: Unremarkable. No pulmonary embolus. Aorta: Mild atherosclerosis. No thoracic aortic aneurysm. Lungs: Airspace opacities bilaterally may represent multifocal pneumonia and/or aspiration. Bilateral pulmonary masses are most consistent with metastatic disease. These measure up to 3.7 cm. Emphysema. Pleural space: Small bilateral pleural effusions. No pneumothorax. Heart: Unremarkable. No cardiomegaly. No significant pericardial effusion. No evidence of RV dysfunction. Bones/joints: Chronic bilateral rib fractures with postsurgical changes and screws and plates. Soft tissues: Unremarkable. Lymph nodes: Unremarkable. No enlarged lymph nodes. Intraperitoneal space: Marked free fluid in the abdomen is noted. IMPRESSION: 1. No pulmonary embolus. 2. Airspace opacities bilaterally may represent multifocal pneumonia and/or aspiration. 3. Bilateral pulmonary masses are most consistent with metastatic disease. These measure up to 3.7 cm. 4. Emphysema. 5. Small bilateral pleural effusions. 6. Marked free fluid in the abdomen is noted. Please see dedicated CT abdomen and pelvis report regarding the abdominal findings. Electronically signed by: Fay Moffett MD 08/31/23 05:14 AM Chest X-Ray 08/31/23 06:58 XR chest 1V portable HISTORY: 73 years-old Male lines acute respiratory failure COMPARISON: CTA chest of same day TECHNIQUE: AP view of the chest FINDINGS: Cardiac silhouette is enlarged. Endotracheal tube overlies the midline, 3.4 cm superior to the rios. Left subclavian catheter is noted with distal tip projected over the right atrium. No pneumothorax. Small pleural effusions. Emphysema with bibasilar consolidation. Patchy nodular areas of consolidation are again noted, left greater than right. ORIF hardware of the ribs. IMPRESSION: 1. The endotracheal tube terminates 3.4 cm superior to the rios. 2. Small pleural effusions with bibasilar nodular consolidation redemonstrated. 3. Pulmonary emphysema. ACT 112: Negative or not required by law. The above report was generated using voice recognition software. It may contain grammatical, syntax or spelling errors. Electronically signed by: Juan Carlos Rai M.D. 08/31/2023 7:20 AM KUB X-Ray 08/31/23 10:29 KUB HISTORY: Evaluate NG tube placement. COMPARISON: KUB 08/30/2023. FINDINGS: Nasogastric tube terminates in the proximal stomach. The fenestrated line is at the gastroesophageal junction. Surgical drain and skin angela are seen within the midabdomen. There is residual barium contrast within the colon. No dilated loops of small bowel to suggest an obstruction. Postoperative changes within the ribs. No renal calculi. No ureteral calculi. No pneumoperitoneum or pneumatosis. IMPRESSION: 1. Nasogastric tube terminates at the proximal stomach. The fenestrated line is at the gastroesophageal junction. This could be advanced by approximately 5 cm. 2. Interval postoperative changes. No dilated loops of small bowel to suggest a small bowel obstruction. ACT 112: Negative or not required by law. Electronically signed by: Jamie Blanchard M.D. 08/31/2023 11:56 AM Chest X-Ray 08/31/23 10:40 XR chest 1V portable HISTORY: 73 years-old Male ett placement acute respiratory failure COMPARISON: 08/31/2023 TECHNIQUE: AP view of the chest FINDINGS: Endotracheal tube overlies the midline, 3 cm superior to the rios. Left subclavian catheter is again noted with distal tip projected over the right atrium. Distal tip of enteric tube projects over the gastric body. Cardiac silhouette is enlarged. No pneumothorax. Small pleural effusions. Emphysema with bibasilar consolidation. Patchy nodular areas of consolidation are again noted, left greater than right. ORIF hardware of the ribs. IMPRESSION: 1. Lines and tubes as above. 2. No pneumothorax. 3. Unchanged appearance of the lungs. ACT 112: Negative or not required by law. The above report was generated using voice recognition software. It may contain grammatical, syntax or spelling errors. Electronically signed by: Juan Carlos Rai M.D. 08/31/2023 11:22 AM PG Care Time/CCT Total # of Minutes Spent Total Time Spent with Patient: Total time spent is greater than 50% in coordination of care (as documented) at patient's floor/unit and/or counseling patient: Coding Level of Care Code 34382 SUB INP/OBS CARE 2/35MIN Diagnoses Perforated viscus R19.8 Intra-abdominal abscess K65.1 Acute hypoxic respiratory failure J96.01 Sepsis A41.9 Acute respiratory failure type: with hypoxia Sepsis acute organ dysfunction status: with acute organ dysfunction Sepsis type: sepsis due to unspecified organism Severe sepsis shock status: unspecified Multiple pulmonary nodules R91.8 Acute metabolic encephalopathy G93.41 Pneumonia J18.9 Laterality: left Lung location: unspecified part of lung Pneumonia type: due to unspecified organism SHEBA (acute kidney injury) N17.9 Elevated troponin R79.89 COPD (chronic obstructive pulmonary disease) J44.9 Alcohol abuse F10.10 Paroxysmal A-fib I48.0 Polymyalgia rheumatica M35.3 Severe protein-calorie malnutrition E43 Rheumatoid arthritis M06.9 Unilateral vocal cord paralysis J38.01 Anemia D64.9 DVT prophylaxis Z29.9 (4) Sepsis Acute respiratory failure type: with hypoxia Sepsis acute organ dysfunction status: with acute organ dysfunction Sepsis type: sepsis due to unspecified organism Severe sepsis shock status: unspecified (7) Pneumonia Laterality: left Lung location: unspecified part of lung Pneumonia type: due to unspecified organism Qualified Code(s): J18.9 - Pneumonia, unspecified organism
[2023-08-31] MEDS: PROPOFOL BOLUS FROM BAG IV PRN ×2 (19:15→22:32)
[2023-08-31] MEDS ORDERED: ALBUMIN 5% 250 ML IV ONE (20:31)
[2023-08-31] MEDS: NOREPINEPHRINE/D5W 4 MG/250 ML PLCT IV SCH (22:17)
[2023-09-01] MEDS: propofoL 1,000 MG/100 ML VIAL IV SCH ×3 (00:25→10:37)
[2023-09-01] MEDS: PROPOFOL BOLUS FROM BAG IV PRN ×2 (02:00→05:58)
[2023-09-01] MEDS: PIPER/TAZO 4.5g in D5W MINI-B 100 ML IV SCH (02:32)
[2023-09-01 04:47] LABS: iSTAT Art Bld Gas pCO2 Correct 28 mmHg (35-46); iSTAT Art Bld Gas pH Corrected 7.417 (7.35-7.45); iSTAT Arterial Blood Gas HCO3 18 meg/L (19-24); iSTAT Arterial Blood Gas pCO2 26 mmHg (35-46); iSTAT Arterial Blood Gas pH 7.43 (7.35-7.45); iSTAT Arterial Blood Gas pO2 78 mmHg (80-95); iSTAT Arterial Blood Gas pO2 C 84; iSTAT Carbon Dioxide 18 mmol/L (24-31); iSTAT FiO2 35 %; iSTAT Hematocrit 25 % (42-52); iSTAT Hemoglobin 8.5 g/dl (14.0-18.0); iSTAT Potassium 4.4 mmol/L (3.3-5.0); iSTAT Site Art Line; iSTAT Sodium 138 mmol/L (135-144)
[2023-09-01 04:53] LABS: Albumin Globulin Ratio 1.3 (0.9-2); Albumin Level 2.5 gm/dl (3.4-5.0); BUN Creatinine Ratio 16.1 (10-20); Bilirubin,Total 0.4 mg/dl (0.2-1.0); Calcium 7.6 mg/dl (8.6-10.3); Est GFR (African American) 32.7 ml/min; Est GFR (Non-African American) 28.2 ml/min; Potassium 4.3 mmol/L (3.5-5.1); Total Protein 4.5 gm/dl (6.0-8.3)
[2023-09-01 05:11] LABS: Hematocrit (blood only) 28.7 % (42.0-52.0); Hemoglobin 9.2 g/dl (14.0-18.0); Mean Corpuscular Hemoglobin 31.1 pg (25.0-34.0); Mean Corpuscular Hgb Conc 32.1 g/dL (32.0-36.0); Mean Platelet Volume 9.5 fL (9.4-12.4); Platelet Count 190 K/uL (130-400); RDW Coefficient of Variation 14.2 % (11.5-14.5); RDW Standard Deviation 49.2 fL (36.4-46.3); Red Blood Count 2.96 M/uL (4.70-6.10); White Blood Count 14.36 K/ul (4.8-10.8)
[2023-09-01] MEDS: D5W AND 1/2NSS + 20MEQ KCL 20 MEQ/1,000 ML BAG IV SCH ×2 (05:46→15:23)
[2023-09-01 06:47] LABS: Basophils # (auto) 0.03 K/uL (0.00-0.20); Basophils % (auto) 0.2 %; Immature Granulocytes # (auto) 0.09 K/uL (0.01-0.20); Immature Granulocytes % (auto) 0.6 %; Lymphocytes # (auto) 0.32 K/uL (1.20-3.40); Lymphocytes % (auto) 2.2 %; Monocytes # (auto) 0.41 K/uL (0.11-0.59); Monocytes % (auto) 2.9 %; Neutrophils # (auto) 13.51 K/uL (1.40-6.50); Neutrophils % (auto) 94.1 %; Platelet Estimate Normal (Normal)
--- NOTE | 2023-09-01 06:57 | XRay Report ---
XR chest 1V portable CLINICAL HISTORY: eval ETT placement post adjustment COMPARISON STUDY: Chest CT August 31, 2023. Chest radiograph August 31, 2023 at 10:43 AM. FINDINGS: Tip of endotracheal tube is 1.1 cm above the rios. Tip of nasogastric tube is within the gastric fundus. Left subclavian central line is in place. There is no pneumothorax. Small bilateral p leural effusions with bibasilar airspace opacities persist. Multiple bilateral rib internal fixations are incidentally noted. Lung volumes are diminished. This is unchanged. Cardiac mediastinal silhouet te is stable. There is underlying emphysema. IMPRESSION: 1. Satisfactory positioning of lines and tubes. 2. Small bilateral pleural effusions with bilateral lower lung airspace opacities which favor multif ocal pneumonia. ACT 112: Negative or not required by law. Electronically signed by: Vic Eason M.D. 09/01/2023 6:55 AM
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
[2023-09-01] MEDS: VANCOMYCIN HCL 750 MG in SODIUM CHLORIDE 0.9% 250 ML IV SCH (08:00)
[2023-09-01] MEDS: CEROVITE ADV FORMULA TAB PO SCH (08:01)
[2023-09-01] MEDS: DOCUSATE SODIUM 100 MG CAP PO SCH ×2 (08:01→20:12)
[2023-09-01] MEDS: FOLIC ACID 1 MG TAB PO SCH (08:01)
[2023-09-01] MEDS: PANTOprazole 40 MG in SYRINGE 0 ML IV SCH ×2 (08:01→20:12)
[2023-09-01] MEDS: UMECLIDINIUM BROMIDE 62.5MCG/BLISTER 7 PUFFS/INHALER INH SCH (08:01)
[2023-09-01] MEDS: THIAMINE HCL 200 MG in SODIUM CHLORIDE 0.9% 50 ML IV SCH ×2 (08:02→20:12)
--- NOTE | 2023-09-01 08:17 | Pulmonology Progress Note ---
Date of Service September 01, 2023 Assessment & Plan (1) Pneumonia: Laterality: left Lung location: unspecified part of lung Pneumonia type: due to unspecified organism Qualified Code(s): J18.9 - Pneumonia, unspecified organism (2) Abnormal CT scan, chest: (3) COPD (chronic obstructive pulmonary disease): Plan Impression: 73-year-old male with history of alcohol abuse recently admitted to [facility] where he was treated for alcohol withdrawal and respiratory failure. Those records are not available to review. [facility] 08/[facility]/2023 with hypoxemia and altered mental status. His CT scan showed multifocal nodular densities of unclear etiology and unclear chronicity. He is being treated for potential multifocal pneumonia. He developed a bowel perforation and was transferred to the ICU and taken emergently to the OR where a perforation was identified and oversewn. There was pelvic abscess identified which was evacuated. Recommendations: 1. Multiple pulmonary nodules: Given the intra-abdominal findings, the pulmonary findings of being infectious/inflammatory in etiology however continued radiographic surveillance is recommended. Would recommend completing 10-day course of appropriate antimicrobial therapy and considering repeat CT of the chest in 4 to 6 weeks. Defer abx to primary service, can maker, and surgical team. If the parenchymal abnormalities persist or enlarge, low threshold for proceeding with PET scan and potential tissue diagnosis. 2. Waiting review of outside imaging studies to determine temporal pattern. 3. COPD: Ventilator management per can maker Pulmonary plan as outlined above. Feel free to contact us with questions or concerns. Otherwise pulmonary will sign off. Will be happy to see the patient back in follow-up in 4 to [address] scan. Admission and Anticipated Discharge Date Admission Date: August 26, 2023 Subjective Patient is intubated and sedated Review of Systems Review of Systems: Unobtainable due to endotracheal tube Physical Exam Physical Exam: Patient intubated sedated on the mechanical ventilator in the ICU Constitutional: WD/WN, vitals as above Neck: trachea midline, no thyromegaly Respiratory: no respiratory distress, no labored breathing and no cough Auscultation: + rhonchi; no wheezes Cardiovascular: RRR, no murmur, no edema Gastrointestinal (Abdomen): normal bowel sounds, soft, nontender, no hepatosplenomegaly Musculoskeletal: Extremities: extremities normal to inspection Skin: no rashes, warm and dry Lymphatic: no cervical lymphadenopathy Results & Data Results & Data Vital Signs (Past 12 Hours) Vital Signs Temp Pulse Resp BP Pulse Ox FiO2 09/01/23 06:30 38.0 C H 89 28 H 100 09/01/23 06:15 38.1 C H 92 H 27 H 99 09/01/23 06:00 97/69 L 09/01/23 06:00 38.1 C H 92 H 26 H 99 09/01/23 05:45 38.1 C H 94 H 28 H 99 09/01/23 05:30 38.1 C H 92 H 35 H 100 09/01/23 05:15 38.1 C H 117 H 26 H 99 09/01/23 05:00 38.1 C H 116 H 26 H 98 09/01/23 04:45 38.1 C H 116 H 28 H 100 09/01/23 04:43 23 35 09/01/23 04:30 38.1 C H 117 H 28 H 98 09/01/23 04:15 38.1 C H 117 H 25 H 98 09/01/23 04:00 38.1 C H 116 H 26 H 98 09/01/23 04:00 116/72 09/01/23 04:00 40 09/01/23 03:45 38.0 C H 116 H 28 H 100 09/01/23 03:30 38.1 C H 116 H 27 H 98 09/01/23 03:15 38.1 C H 117 H 24 98 09/01/23 03:06 117 H 22 97 35 09/01/23 03:00 38.1 C H 116 H 29 H 98 09/01/23 02:45 38.1 C H 116 H 30 H 97 09/01/23 02:30 38.2 C H 118 H 27 H 97 09/01/23 02:15 37.8 C H 94 H 28 H 98 09/01/23 02:00 38.1 C H 92 H 25 H 99 09/01/23 02:00 117/70 09/01/23 01:45 38.2 C H 93 H 25 H 99 09/01/23 01:30 37.6 C H 92 H 28 H 97 09/01/23 01:15 37.7 C H 94 H 33 H 96 09/01/23 01:00 38.2 C H 89 26 H 100 09/01/23 01:00 112/66 09/01/23 00:45 38.2 C H 116 H 24 99 09/01/23 00:30 38.3 C H 117 H 32 H 100 09/01/23 00:15 38.0 C H 117 H 33 H 98 09/01/23 00:13 90 27 H 100 35 09/01/23 00:00 38.3 C H 117 H 28 H 98 09/01/23 00:00 110/67 09/01/23 00:00 40 08/31/23 23:45 38.3 C H 92 H 26 H 97 08/31/23 23:30 38.3 C H 89 24 98 08/31/23 23:19 113 H 08/31/23 23:15 38.2 C H 96 H 26 H 92 08/31/23 23:00 38.2 C H 98 H 29 H 99 08/31/23 22:45 38.2 C H 84 25 H 100 08/31/23 22:30 38.2 C H 86 26 H 99 08/31/23 22:15 38.2 C H 113 H 24 100 08/31/23 22:00 99/59 L 08/31/23 22:00 38.2 C H 113 H 24 100 08/31/23 21:45 38.2 C H 114 H 23 99 08/31/23 21:30 38.2 C H 113 H 26 H 100 08/31/23 21:15 38.2 C H 114 H 27 H 100 08/31/23 21:00 38.2 C H 87 30 H 99 08/31/23 20:45 38.1 C H 112 H 26 H 100 08/31/23 20:30 38.1 C H 112 H 26 H 99 08/31/23 20:22 122 H 25 H 100 40 08/31/23 20:15 38.0 C H 112 H 32 H 100 PG Care Time/CCT Total # of Minutes Spent Total Time Spent with Patient: Total time spent is greater than 50% in coordination of care (as documented) at patient's floor/unit and/or counseling patient: Coding Level of Care Code 73785 SUB INP/OBS CARE 2/35MIN Diagnoses Pneumonia J18.9 Laterality: left Lung location: unspecified part of lung Pneumonia type: due to unspecified organism Abnormal CT scan, chest R93.89 COPD (chronic obstructive pulmonary disease) J44.9
[2023-09-01] MEDS ORDERED: CASPOFUNGIN 70 MG in SODIUM CHLORIDE 0.9% 250 ML IV ONE (08:45)
[2023-09-01] MEDS ORDERED: CEROVITE ADV FORMULA TAB PO SCH (09:00)
[2023-09-01] MEDS ORDERED: AMIODARONE 200 MG TAB PO SCH (09:00)
[2023-09-01] MEDS ORDERED: predniSONE 20 MG TAB PO SCH (09:00)
--- NOTE | 2023-09-01 09:03 | Critical Care Progress Note ---
Date of Service September 01, 2023 Assessment & Plan (1) Pneumonia: (2) Abnormal CT scan, chest: (3) COPD (chronic obstructive pulmonary disease): Plan Reason Critically Ill: Impression: 73-year-old male with perforated viscus postop day 0 PLAN: Neuro: History of multi factorial metabolic encephalopathy: Improved -Liberated from the ventilator and is alert following complex commands Resp: Pulmonary notes reviewed: Recommendations: Multiple pulmonary nodules: Currently off anticoagulation secondary to exploratory laparotomy: Will discuss with family possibility of biopsy. -Continue antibiotic coverage for intra-abdominal infection which will also provide coverage for most pulmonary sources -Intra-abdominal findings could represent source for possible septic emboli -Attempt to obtain MRI of the brain with and without contrast -If this is malignancy, it is widely metastatic and the patient appears to be a poor candidate for systemic chemotherapy currently. - There is a potential hypodensity in the liver/below the liver which was poorly visualized on the CT scan and additional imaging is recommended. COPD: The patient does not appear to be suffering an acute exacerbation of COPD. Liberated from the ventilator today CV: History of stress-induced cardiomyopathy while at [facility] History of paroxysmal atrial fibrillation with rapid ventricular response -Currently normal sinus rhythm Fluids/Renal: Report of acute kidney injury on chronic kidney disease:Continue to monitor mildly worse today -Pharmacy to assist with antibiotic dosing ID: Perforated viscus: Findings concerning for possible intra-abdominal abscess -Continue Zosyn and vancomycin awaiting cultures -Adding caspofungin after obtaining fungal culture GI/Nutrition: Postop day 1 from perforated viscus -Okay with clears, no NG output Heme: Systemic anticoagulation with apixaban -Patient currently in normal sinus rhythm and postop will hold anticoagulation DVT prophylaxis: Heparin 5000 units twice daily Endocrine: ICU hyperglycemia protocol Vascular access: Subclavian left central venous catheter, arterial line Code Status: DNR/DNI in event of cardiac arrest Disposition: ICU Family states the patient prefers to go by [facility] as opposed to his legal name of [facility] Admission and Anticipated Discharge Date Admission Date: August 26, 2023 Supervising Physician Co-Signing Physician Notes I have personally spent 40 minutes of critical care time in the direct management of this patient. This is a life/limb threatening event. This includes time spent evaluating patient, direct bedside care, chart review, placing orders, interpretation of diagnostic studies, discussion with consultants, patient, and/or family members regarding treatment decisions, as well as other required patient management activities. This time is exclusive of all separately billable procedures, and teaching time and separate from and in addition to any other critical care service time. Subjective No events overnight Review of Systems Review of Systems: Unobtainable due to endotracheal tube Physical Exam Physical Exam: General: Sedated. nontoxic. Skin: Warm, dry, Head: Atraumatic Ears, nose, mouth and throat: airway obscured by endotracheal tube Cardiovascular: Normal peripheral perfusion Respiratory: Ventilator settings reviewed Gastrointestinal: Non distended Musculoskeletal: No deformity Results & Data Results & Data Vital Signs (Past 12 Hours) Vital Signs Temp Pulse Resp BP Pulse Ox FiO2 09/01/23 07:50 96 H 32 H 100 35 09/01/23 06:30 38.0 C H 89 28 H 100 09/01/23 06:15 38.1 C H 92 H 27 H 99 09/01/23 06:00 97/69 L 09/01/23 06:00 38.1 C H 92 H 26 H 99 09/01/23 05:45 38.1 C H 94 H 28 H 99 09/01/23 05:30 38.1 C H 92 H 35 H 100 09/01/23 05:15 38.1 C H 117 H 26 H 99 09/01/23 05:00 38.1 C H 116 H 26 H 98 09/01/23 04:45 38.1 C H 116 H 28 H 100 09/01/23 04:43 23 35 09/01/23 04:30 38.1 C H 117 H 28 H 98 09/01/23 04:15 38.1 C H 117 H 25 H 98 09/01/23 04:00 38.1 C H 116 H 26 H 98 09/01/23 04:00 116/72 09/01/23 04:00 40 09/01/23 03:45 38.0 C H 116 H 28 H 100 09/01/23 03:30 38.1 C H 116 H 27 H 98 09/01/23 03:15 38.1 C H 117 H 24 98 09/01/23 03:06 117 H 22 97 35 09/01/23 03:00 38.1 C H 116 H 29 H 98 09/01/23 02:45 38.1 C H 116 H 30 H 97 09/01/23 02:30 38.2 C H 118 H 27 H 97 09/01/23 02:15 37.8 C H 94 H 28 H 98 09/01/23 02:00 38.1 C H 92 H 25 H 99 09/01/23 02:00 117/70 09/01/23 01:45 38.2 C H 93 H 25 H 99 09/01/23 01:30 37.6 C H 92 H 28 H 97 09/01/23 01:15 37.7 C H 94 H 33 H 96 09/01/23 01:00 38.2 C H 89 26 H 100 09/01/23 01:00 112/66 09/01/23 00:45 38.2 C H 116 H 24 99 09/01/23 00:30 38.3 C H 117 H 32 H 100 09/01/23 00:15 38.0 C H 117 H 33 H 98 09/01/23 00:13 90 27 H 100 35 09/01/23 00:00 38.3 C H 117 H 28 H 98 09/01/23 00:00 110/67 09/01/23 00:00 40 08/31/23 23:45 38.3 C H 92 H 26 H 97 08/31/23 23:30 38.3 C H 89 24 98 08/31/23 23:19 113 H 08/31/23 23:15 38.2 C H 96 H 26 H 92 08/31/23 23:00 38.2 C H 98 H 29 H 99 08/31/23 22:45 38.2 C H 84 25 H 100 08/31/23 22:30 38.2 C H 86 26 H 99 08/31/23 22:15 38.2 C H 113 H 24 100 08/31/23 22:00 99/59 L 08/31/23 22:00 38.2 C H 113 H 24 100 08/31/23 21:45 38.2 C H 114 H 23 99 08/31/23 21:30 38.2 C H 113 H 26 H 100 08/31/23 21:15 38.2 C H 114 H 27 H 100 Critical Care Results & Data Vital Signs (Past 12 Hours) Vital Signs Temp Pulse Resp BP Pulse Ox FiO2 09/01/23 07:50 96 H 32 H 100 35 09/01/23 06:30 38.0 C H 89 28 H 100 09/01/23 06:15 38.1 C H 92 H 27 H 99 09/01/23 06:00 97/69 L 09/01/23 06:00 38.1 C H 92 H 26 H 99 09/01/23 05:45 38.1 C H 94 H 28 H 99 09/01/23 05:30 38.1 C H 92 H 35 H 100 09/01/23 05:15 38.1 C H 117 H 26 H 99 09/01/23 05:00 38.1 C H 116 H 26 H 98 09/01/23 04:45 38.1 C H 116 H 28 H 100 09/01/23 04:43 23 35 09/01/23 04:30 38.1 C H 117 H 28 H 98 09/01/23 04:15 38.1 C H 117 H 25 H 98 09/01/23 04:00 38.1 C H 116 H 26 H 98 09/01/23 04:00 116/72 09/01/23 04:00 40 09/01/23 03:45 38.0 C H 116 H 28 H 100 09/01/23 03:30 38.1 C H 116 H 27 H 98 09/01/23 03:15 38.1 C H 117 H 24 98 09/01/23 03:06 117 H 22 97 35 09/01/23 03:00 38.1 C H 116 H 29 H 98 09/01/23 02:45 38.1 C H 116 H 30 H 97 09/01/23 02:30 38.2 C H 118 H 27 H 97 09/01/23 02:15 37.8 C H 94 H 28 H 98 09/01/23 02:00 38.1 C H 92 H 25 H 99 09/01/23 02:00 117/70 09/01/23 01:45 38.2 C H 93 H 25 H 99 09/01/23 01:30 37.6 C H 92 H 28 H 97 09/01/23 01:15 37.7 C H 94 H 33 H 96 09/01/23 01:00 38.2 C H 89 26 H 100 09/01/23 01:00 112/66 09/01/23 00:45 38.2 C H 116 H 24 99 09/01/23 00:30 38.3 C H 117 H 32 H 100 09/01/23 00:15 38.0 C H 117 H 33 H 98 09/01/23 00:13 90 27 H 100 35 09/01/23 00:00 38.3 C H 117 H 28 H 98 09/01/23 00:00 110/67 09/01/23 00:00 40 08/31/23 23:45 38.3 C H 92 H 26 H 97 08/31/23 23:30 38.3 C H 89 24 98 08/31/23 23:19 113 H 08/31/23 23:15 38.2 C H 96 H 26 H 92 08/31/23 23:00 38.2 C H 98 H 29 H 99 08/31/23 22:45 38.2 C H 84 25 H 100 08/31/23 22:30 38.2 C H 86 26 H 99 08/31/23 22:15 38.2 C H 113 H 24 100 08/31/23 22:00 99/59 L 08/31/23 22:00 38.2 C H 113 H 24 100 08/31/23 21:45 38.2 C H 114 H 23 99 08/31/23 21:30 38.2 C H 113 H 26 H 100 08/31/23 21:15 38.2 C H 114 H 27 H 100 Lab & Micro Results (Past 24 Hours) RBC 2.96 M/uL (4.70-6.10) L 09/01/23 WBC 14.36 K/ul (4.8-10.8) H 09/01/23 Hgb 9.4 g/dl (14.0-18.0) L 09/01/23 Hct 28.4 % (42.0-52.0) L 09/01/23 MCV 97.0 fL (80.0-100.0) 09/01/23 MCH 31.1 pg (25.0-34.0) 09/01/23 MCHC 32.1 g/dL (32.0-36.0) 09/01/23 RDW Standard Deviation 49.2 fL (36.4-46.3) H 09/01/23 RDW Coefficient of Variation 14.2 % (11.5-14.5) 09/01/23 Plt Count 190 K/uL (130-400) 09/01/23 MPV 9.5 fL (9.4-12.4) 09/01/23 Neutrophils (%) (Auto) 94.1 % 09/01/23 Lymphocytes (%) (Auto) 2.2 % 09/01/23 Monocytes # (Auto) 0.41 K/uL (0.11-0.59) 09/01/23 Eosinophils # (Auto) 0.00 K/uL (0.00-0.50) 09/01/23 Immature Granulocyte % (Auto) 0.6 % 09/01/23 Neutrophils # (Auto) 13.51 K/uL (1.40-6.50) H 09/01/23 Lymphocytes # (Auto) 0.32 K/uL (1.20-3.40) L 09/01/23 Monocytes # (Auto) 0.41 K/uL (0.11-0.59) 09/01/23 Eosinophils # (Auto) 0.00 K/uL (0.00-0.50) 09/01/23 Basophils # (Auto) 0.03 K/uL (0.00-0.20) 09/01/23 Immature Granulocyte # (Auto) 0.09 K/uL (0.01-0.20) 3 Na 137 mmol/L (136-145) 09/01/23 K 4.3 mmol/L (3.5-5.1) 09/01/23 Cl 109 mmol/L (98-107) H 09/01/23 CO2 19 mmol/L (21-32) L 09/01/23 Anion Gap 9 (3-11) 09/01/23 BUN 36 mg/dl (6-23) H 09/01/23 Creatinine 2.24 mg/dl (0.6-1.4) H 09/01/23 Estimated GFR ( Amer) 32.7 ml/min 09/01/23 Estimated GFR (Non-Af Amer) 28.2 ml/min 09/01/23 BUN/Creatinine Ratio 16.1 (10-20) 09/01/23 Glu 121 mg/dl (70-99(Fasting)) H 09/01/23 Ca 7.6 mg/dl (8.6-10.3) L 09/01/23 Total Bilirubin 0.4 mg/dl (0.2-1.0) 09/01/23 AST 15 U/L (13-39) 09/01/23 ALT 22 U/L (7-52) 09/01/23 Alkaline Phosphatase 107 U/L (34-104) H 09/01/23 TP 4.5 gm/dl (6.0-8.3) L 09/01/23 Albumin 2.5 gm/dl (3.4-5.0) L 09/01/23 Globulin 2.0 gm/dl (2.5-4.0) L 09/01/23 Albumin/Globulin Ratio 1.3 (0.9-2) 09/01/23 Calcium Level 7.6 mg/dl (8.6-10.3) L 09/01/23 03:51 Mikey Test NA 09/01/23 04:23 Microbiology 08/26/23 17:47 Aerobic Blood Culture - Final Blood No growth in Aerobic bottle after 5 days. Anaerobic Blood Culture - Final No growth in Anaerobic bottle after 5 days. 08/26/23 17:46 Aerobic Blood Culture - Final Blood No growth in Aerobic bottle after 5 days. Anaerobic Blood Culture - Final 08/31/23 04:27 Aerobic Blood Culture - Preliminary Blood No growth in Aerobic bottle after 24 hours. 08/31/23 04:27 Aerobic Blood Culture - Preliminary Blood No growth in Aerobic bottle after 24 hours. Anaerobic Blood Culture - Preliminary No growth in Anaerobic bottle after 24 hours. 08/31/23 08:48 Gram Stain - Final Peritoneal Fluid Diagnostic Findings (Past 24 Hours) KUB X-Ray 08/31/23 10:29 KUB HISTORY: Evaluate NG tube placement. COMPARISON: KUB 08/30/2023. FINDINGS: Nasogastric tube terminates in the proximal stomach. The fenestrated line is at the gastroesophageal junction. Surgical drain and skin angela are seen within the midabdomen. There is residual barium contrast within the colon. No dilated loops of small bowel to suggest an obstruction. Postoperative changes within the ribs. No renal calculi. No ureteral calculi. No pneumoperitoneum or pneumatosis. IMPRESSION: 1. Nasogastric tube terminates at the proximal stomach. The fenestrated line is at the gastroesophageal junction. This could be advanced by approximately 5 cm. 2. Interval postoperative changes. No dilated loops of small bowel to suggest a small bowel obstruction. ACT 112: Negative or not required by law. Electronically signed by: Jamie Blanchard M.D. 08/31/2023 11:56 AM Chest X-Ray 08/31/23 10:40 XR chest 1V portable HISTORY: 73 years-old Male ett placement acute respiratory failure COMPARISON: 08/31/2023 TECHNIQUE: AP view of the chest FINDINGS: Endotracheal tube overlies the midline, 3 cm superior to the rios. Left subclavian catheter is again noted with distal tip projected over the right atrium. Distal tip of enteric tube projects over the gastric body. Cardiac silhouette is enlarged. No pneumothorax. Small pleural effusions. Emphysema with bibasilar consolidation. Patchy nodular areas of consolidation are again noted, left greater than right. ORIF hardware of the ribs. IMPRESSION: 1. Lines and tubes as above. 2. No pneumothorax. 3. Unchanged appearance of the lungs. ACT 112: Negative or not required by law. The above report was generated using voice recognition software. It may contain grammatical, syntax or spelling errors. Electronically signed by: Juan Carlos Rai M.D. 08/31/2023 11:22 AM Chest X-Ray 08/31/23 20:01 XR chest 1V portable CLINICAL HISTORY: eval ETT placement post adjustment COMPARISON STUDY: Chest CT August 31, 2023. Chest radiograph August 31, 2023 at 10:43 AM. FINDINGS: Tip of endotracheal tube is 1.1 cm above the rios. Tip of nasogastric tube is within the gastric fundus. Left subclavian central line is in place. There is no pneumothorax. Small bilateral pleural effusions with bibasilar airspace opacities persist. Multiple bilateral rib internal fixations are incidentally noted. Lung volumes are diminished. This is unchanged. Cardiac mediastinal silhouette is stable. There is underlying emphysema. IMPRESSION: 1. Satisfactory positioning of lines and tubes. 2. Small bilateral pleural effusions with bilateral lower lung airspace opacities which favor multifocal pneumonia. ACT 112: Negative or not required by law. Electronically signed by: Vic Eason M.D. 09/01/2023 6:55 AM I & O Totals 24 Hours 08/31/23 09/01/23 09/02/23 06:59 06:59 06:59 Intake Total 952 / 952 6116.130 / 6116.130 52 / 52 Output Total 352 / 352 1440 / 1440 Balance 600 / 600 4676.130 / 4676.130 52 / 52 Cumulative 08/26/23 17:05 thru 09/01/23 08:39 Intake Total 98133.880 Output Total 4024 Balance 92931.880 RT Ventilator Mngmt (Last Documented) Ventilator Ordered Settings Ventilator Support Mode CPAP 09/01/23 07:50 Respiratory Rate 32 09/01/23 07:50 Ventilator Tidal Volume 380 09/01/23 04:43 Setting Minute Ventilation 10.1 09/01/23 07:50 Ventilator Positive Pressure 5 09/01/23 07:50 Support Setting Positive End Expiratory 5 09/01/23 07:50 Pressure Fraction of Inspired Oxygen 35 09/01/23 07:50 Machine Comment weaned to 35% 08/31/23 20:22 Ventilator - PT Measurements Respiratory Rate 32 Exhaled Tidal Volume 346 Minute Ventilation 10.1 Peak Inspiratory Airway 12 Pressure Plateau Pressure 19 Respiratory Cycle Inspiratory: 1:2.9 Expiratory Ratio Inspiratory Phase Time 0.6 End-Tidal CO2 26 Static Lung Compliance 27.29 Dynamic Lung Compliance 49.43 Normal Static Lung Compliance 48.00 Patient Measurements Comment changes made after ABG Coding Level of Care Code 28054 CRITICAL CARE 1ST 30-74M Diagnoses Pneumonia J18.9 Laterality: left Lung location: unspecified part of lung Pneumonia type: due to unspecified organism Abnormal CT scan, chest R93.89 COPD (chronic obstructive pulmonary disease) J44.9 (1) Pneumonia Laterality: left Lung location: unspecified part of lung Pneumonia type: due to unspecified organism Qualified Code(s): J18.9 - Pneumonia, unspecified organism
[2023-09-01] MEDS: MEROPENEM 500 MG in SYRINGE 0 ML IV SCH ×2 (11:13→18:40)
--- NOTE | 2023-09-01 11:24 | Pharmacy Report ---
Pharmacy Vanc AUC Short Note - Date of Service September 01, 2023 - Assessment & Plan Assessment * 73 year old M receiving VANCOMYCIN + MEROPENEM + CASPOFUNGIN for treatment of perforated cecum w/ associated abscess. * Patient is s/p exp lap with drainage of abscess and partial cecum resection * Of note, pt did have recent prolonged hospitalization and treatment with broad-spectrum abx at [facility] * Pertinent microbiologic data includes: peritoneal fluid gram stain: rare yeast, rare GNR and rare GPR; peritoneal fluid cx growing GNR; no growth in BLCXs to date * Day # 2 Plan Vancomycin * Vanco 1250mg x 1 given yesterday AM * Random Vanco level this AM 10.5 * AUC/ARISTIDES is the preferred PK/PD target for vancomycin * AUC guided dosing is effective and associated with decreased risk of nephrotoxicity compared to traditional trough targets * Will begin maint dose of 750mg IV Q 24 hrs as this regimen is predicted to achieve target AUC/ARISTIDES of 400-600 mg/L.hr and may be associated with a 13 % risk of nephrotoxicity * Will check level in next 24-48 hours if therapy to continue Pharmacy will continue to follow and will adjust dose/frequency as necessary. Thank you.
[2023-09-01 12:27] LABS: Hematocrit (blood only) 28.4 % (42.0-52.0); Hemoglobin 9.4 g/dl (14.0-18.0)
[2023-09-01] MEDS: ACETAMINOPHEN 1,000 MG/100 ML VIAL IV PRN (12:32)
[2023-09-01] MEDS ORDERED: predniSONE 2.5 MG TAB PO ONE (13:30)
[2023-09-01] MEDS: ALBUT/IPRATROP 3MG/0.5MG NEB 3 ML VIAL INH PRN ×2 (15:41→19:50)
[2023-09-01] MEDS: HEPARIN SOD 5,000 UNIT/0.5 ML VIAL SQ SCH (20:12)
[2023-09-02] MEDS: ACETAMINOPHEN 1,000 MG/100 ML VIAL IV PRN (00:09)
[2023-09-02] MEDS: D5W AND 1/2NSS + 20MEQ KCL 20 MEQ/1,000 ML BAG IV SCH ×3 (00:10→22:01)
[2023-09-02] MEDS: NOREPINEPHRINE/D5W 4 MG/250 ML PLCT IV SCH (00:43)
[2023-09-02] MEDS: MEROPENEM 500 MG in SYRINGE 0 ML IV SCH ×3 (02:48→18:10)
[2023-09-02 05:20] LABS: Hematocrit (blood only) 29.1 % (42.0-52.0); Hemoglobin 9.5 g/dl (14.0-18.0); Mean Corpuscular Hemoglobin 31.1 pg (25.0-34.0); Mean Corpuscular Hgb Conc 32.6 g/dL (32.0-36.0); Mean Corpuscular Volume 95.4 fL (80.0-100.0); Mean Platelet Volume 9.5 fL (9.4-12.4); Platelet Count 194 K/uL (130-400); RDW Coefficient of Variation 14.1 % (11.5-14.5); Red Blood Count 3.05 M/uL (4.70-6.10); White Blood Count 20.22 K/ul (4.8-10.8)
[2023-09-02 05:29] LABS: BUN Creatinine Ratio 18.1 (10-20); Calcium 7.9 mg/dl (8.6-10.3); Creatinine Clr Calc Pharmacy 32.3 ml/min; Est GFR (African American) 39.2 ml/min; Est GFR (Non-African American) 33.8 ml/min; Magnesium 1.4 mg/dl (1.7-2.4); Phosphorus 3.9 mg/dl (2.5-4.9); Potassium 4.7 mmol/L (3.5-5.1)
[2023-09-02] MEDS: ICU ELECTROLYTE REPLACEMENT PROTOCOL SCH ×2 (05:49→18:10)
[2023-09-02 06:11] LABS: Basophils # (auto) 0.02 K/uL (0.00-0.20); Basophils % (auto) 0.1 %; Echinocytes 1+; Eosinophils # (auto) 0.01 K/uL (0.00-0.50); Immature Granulocytes # (auto) 0.67 K/uL (0.01-0.20); Immature Granulocytes % (auto) 3.3 %; Lymphocytes # (auto) 0.35 K/uL (1.20-3.40); Lymphocytes % (auto) 1.7 %; Monocytes # (auto) 0.67 K/uL (0.11-0.59); Monocytes % (auto) 3.3 %; Neutrophils % (auto) 91.6 %
[2023-09-02] MEDS: MAGNESIUM SULFATE / D5W 1 GM/100 ML BAG IV SCH ×4 (06:12→14:00)
[2023-09-02] MEDS: ALBUT/IPRATROP 3MG/0.5MG NEB 3 ML VIAL INH PRN ×3 (07:15→19:27)
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
--- NOTE | 2023-09-02 08:07 | Surgery Progress Note ---
Date of Service September 01, 2023 Assessment & Plan (1) Perforated viscus: Plan: slow progress Admission and Anticipated Discharge Date Admission Date: August 26, 2023 Subjective extubated Review of Systems Constitutional: no fever and no chills Respiratory: + dyspnea on exertion; no cough Cardiovascular: no chest pain Gastrointestinal: + abdominal pain Genitourinary: no dysuria Physical Exam Constitutional: + thin Neck: trachea midline Respiratory: normal respiratory effort, lungs clear to auscultation Cardiovascular: RRR, no murmur, no edema Gastrointestinal (Abdomen): Inspection/Auscultation: + abdomen distended Percussion/Palpation: + abdomen tender and abdomen soft Musculoskeletal: Head/Neck/Chest: normocephalic and head atraumatic Results & Data Vital Signs (Past 12 Hours) Vital Signs Temp Pulse Pulse Resp BP Pulse Ox Pulse Ox 09/02/23 07:15 103 H 17 100 09/02/23 06:01 37.3 C 106 H 38 H 96 09/02/23 06:01 153/93 H 09/02/23 06:00 37.3 C 105 H 34 H 96 09/02/23 05:00 37.4 C 102 H 35 H 98 09/02/23 05:00 139/89 09/02/23 04:00 37.4 C 117 H 25 H 100 09/02/23 04:00 133/90 09/02/23 03:00 37.5 C 119 H 31 H 99 09/02/23 03:00 134/88 09/02/23 02:01 37.7 C H 102 H 32 H 99 09/02/23 02:01 123/82 09/02/23 02:00 37.7 C H 102 H 27 H 100 09/02/23 01:00 37.8 C H 103 H 36 H 99 09/02/23 01:00 128/80 09/02/23 00:00 37.9 C H 108 H 31 H 97 09/01/23 23:00 128/80 09/01/23 23:00 37.9 C H 105 H 35 H 99 09/01/23 23:00 98 09/01/23 22:00 130/82 09/01/23 22:00 37.9 C H 106 H 36 H 100 09/01/23 21:15 09/01/23 21:00 37.8 C H 104 H 32 H 99 09/01/23 21:00 112/74 O2 Del Method O2 Del Method O2 Flow Rate O2 Flow Rate 09/02/23 07:15 Nasal Cannula 2 09/02/23 06:01 09/02/23 06:01 09/02/23 06:00 Nasal Cannula 2 09/02/23 05:00 09/02/23 05:00 09/02/23 04:00 Nasal Cannula 2 09/02/23 04:00 09/02/23 03:00 09/02/23 03:00 09/02/23 02:01 09/02/23 02:01 09/02/23 02:00 09/02/23 01:00 09/02/23 01:00 09/02/23 00:00 09/01/23 23:00 Oxymask 2 09/01/23 23:00 09/01/23 23:00 Oxymask 2 09/01/23 22:00 09/01/23 22:00 09/01/23 21:15 Nasal Cannula 2 09/01/23 21:00 09/01/23 21:00
[2023-09-02] MEDS: VANCOMYCIN HCL 750 MG in SODIUM CHLORIDE 0.9% 250 ML IV SCH (08:29)
[2023-09-02] MEDS: THIAMINE HCL 200 MG in SODIUM CHLORIDE 0.9% 50 ML IV SCH (08:30)
[2023-09-02] MEDS: CASPOFUNGIN 50 MG in SODIUM CHLORIDE 0.9% 250 ML IV SCH (08:30)
[2023-09-02] MEDS: HEPARIN SOD 5,000 UNIT/0.5 ML VIAL SQ SCH ×2 (08:31→21:48)
[2023-09-02] MEDS: DOCUSATE SODIUM 100 MG CAP PO SCH ×2 (08:31→21:47)
[2023-09-02] MEDS: PANTOprazole 40 MG in SYRINGE 0 ML IV SCH ×2 (08:31→21:45)
[2023-09-02] MEDS: UMECLIDINIUM BROMIDE 62.5MCG/BLISTER 7 PUFFS/INHALER INH SCH (08:32)
[2023-09-02] MEDS: predniSONE 2.5 MG TAB PO SCH (08:32)
[2023-09-02] MEDS: FOLIC ACID 1 MG TAB PO SCH (08:32)
[2023-09-02] MEDS: CEROVITE ADV FORMULA TAB PO SCH (08:32)
--- NOTE | 2023-09-02 09:59 | Critical Care Progress Note ---
Date of Service September 02, 2023 Assessment & Plan (1) Pneumonia: (2) Abnormal CT scan, chest: (3) COPD (chronic obstructive pulmonary disease): Plan Reason Critically Ill: Impression: 73-year-old male with perforated viscus postop day 0 PLAN: Neuro: History of multi factorial metabolic encephalopathy: Improved -Liberated from the ventilator and is alert following complex commands Resp: Pulmonary notes reviewed: Recommendations: Multiple pulmonary nodules: Currently off anticoagulation secondary to exploratory laparotomy: Will discuss with family possibility of biopsy. -Continue antibiotic coverage for intra-abdominal infection which will also provide coverage for most pulmonary sources -Intra-abdominal findings could represent source for possible septic emboli -Attempt to obtain MRI of the brain with and without contrast -If this is malignancy, it is widely metastatic and the patient appears to be a poor candidate for systemic chemotherapy currently. - There is a potential hypodensity in the liver/below the liver which was poorly visualized on the CT scan and additional imaging is recommended. COPD: The patient does not appear to be suffering an acute exacerbation of COPD. Liberated from the ventilator today CV: History of stress-induced cardiomyopathy while at [place] History of paroxysmal atrial fibrillation with rapid ventricular response: I believe that this is secondary to his prior episode of critical illness family denies any mention of atrial fibrillation prior to this most recent admission -Currently normal sinus rhythm -Will restart beta-blockade, going to hold amiodarone given pulmonary findings Fluids/Renal: Report of acute kidney injury on chronic kidney disease:Continue to monitor mildly worse today -Pharmacy to assist with antibiotic dosing ID: Perforated viscus: Findings concerning for possible intra-abdominal abscess -Continue meropenem for additional 24 hours awaiting any other culture results. If none anticipate de-escalation to Zosyn for 14 days, continue caspofungin for 7 days -Discontinue vancomycin GI/Nutrition: Postop day 2 from perforated viscus -Okay with clears Heme: Systemic anticoagulation with apixaban: [id number] -Patient currently in normal sinus rhythm and postop will hold anticoagulation DVT prophylaxis: Heparin 5000 units twice daily Endocrine: ICU hyperglycemia protocol Rheumatoid arthritis: Restart Plaquenil continue prednisone 7.5 mg daily Vascular access: Subclavian left central venous catheter: Continue central venous catheter or 24 hours then discontinue pending de-escalation of antibiotics need for advanced access Code Status: DNR/DNI in event of cardiac arrest Disposition: Stable for downgrade out of ICU Family states the patient prefers to go by [place] as opposed to his legal name of [place] Admission and Anticipated Discharge Date Admission Date: August 26, 2023 Subjective No overnight events, doing well, tolerated clear liquids, is passing flatus Physical Exam Physical Exam: General: Alert. nontoxic. Skin: Warm, dry, Head: Atraumatic Ears, nose, mouth and throat: airway patent Cardiovascular: Normal peripheral perfusion Respiratory: no respiratory distress Gastrointestinal: Non distended Musculoskeletal: No deformity Results & Data Results & Data Vital Signs (Past 12 Hours) Vital Signs Temp Pulse Pulse Resp BP Pulse Ox Pulse Ox 09/02/23 09:00 37.0 C 105 H 28 H 96 09/02/23 09:00 137/81 09/02/23 08:00 35.8 C L 104 H 35 H 97 09/02/23 08:00 151/87 H 09/02/23 07:15 103 H 17 100 09/02/23 07:00 37.1 C 100 H 38 H 98 09/02/23 07:00 147/85 H 09/02/23 06:01 37.3 C 106 H 38 H 96 09/02/23 06:01 153/93 H 09/02/23 06:00 37.3 C 105 H 34 H 96 09/02/23 05:00 37.4 C 102 H 35 H 98 09/02/23 05:00 139/89 09/02/23 04:00 37.4 C 117 H 25 H 100 09/02/23 04:00 133/90 09/02/23 03:00 37.5 C 119 H 31 H 99 09/02/23 03:00 134/88 09/02/23 02:01 37.7 C H 102 H 32 H 99 09/02/23 02:01 123/82 09/02/23 02:00 37.7 C H 102 H 27 H 100 09/02/23 01:00 37.8 C H 103 H 36 H 99 09/02/23 01:00 128/80 09/02/23 00:00 37.9 C H 108 H 31 H 97 09/01/23 23:00 128/80 09/01/23 23:00 37.9 C H 105 H 35 H 99 09/01/23 23:00 98 09/01/23 22:00 130/82 12/13/23 22:00 37.9 C H 106 H 36 H 100 O2 Del Method O2 Del Method O2 Flow Rate O2 Flow Rate 09/02/23 09:00 09/02/23 09:00 09/02/23 08:00 Nasal Cannula 2 09/02/23 08:00 09/02/23 07:15 Nasal Cannula 2 09/02/23 07:00 09/02/23 07:00 09/02/23 06:01 09/02/23 06:01 09/02/23 06:00 Nasal Cannula 2 09/02/23 05:00 09/02/23 05:00 09/02/23 04:00 Nasal Cannula 2 09/02/23 04:00 09/02/23 03:00 09/02/23 03:00 09/02/23 02:01 09/02/23 02:01 09/02/23 02:00 09/02/23 01:00 09/02/23 01:00 09/02/23 00:00 09/01/23 23:00 Oxymask 2 09/01/23 23:00 09/01/23 23:00 Oxymask 2 09/01/23 22:00 09/01/23 22:00 Critical Care Results & Data Vital Signs (Past 12 Hours) Vital Signs Temp Pulse Pulse Resp BP Pulse Ox Pulse Ox 09/02/23 09:00 37.0 C 105 H 28 H 96 09/02/23 09:00 137/81 09/02/23 08:00 35.8 C L 104 H 35 H 97 09/02/23 08:00 151/87 H 09/02/23 07:15 103 H 17 100 09/02/23 07:00 37.1 C 100 H 38 H 98 09/02/23 07:00 147/85 H 09/02/23 06:01 37.3 C 106 H 38 H 96 09/02/23 06:01 153/93 H 09/02/23 06:00 37.3 C 105 H 34 H 96 09/02/23 05:00 37.4 C 102 H 35 H 98 09/02/23 05:00 139/89 09/02/23 04:00 37.4 C 117 H 25 H 100 09/02/23 04:00 133/90 09/02/23 03:00 37.5 C 119 H 31 H 99 09/02/23 03:00 134/88 09/02/23 02:01 37.7 C H 102 H 32 H 99 09/02/23 02:01 123/82 09/02/23 02:00 37.7 C H 102 H 27 H 100 09/02/23 01:00 37.8 C H 103 H 36 H 99 09/02/23 01:00 128/80 09/02/23 00:00 37.9 C H 108 H 31 H 97 09/01/23 23:00 128/80 09/01/23 23:00 37.9 C H 105 H 35 H 99 09/01/23 23:00 98 09/01/23 22:00 130/82 09/01/23 22:00 37.9 C H 106 H 36 H 100 O2 Del Method O2 Del Method O2 Flow Rate O2 Flow Rate 09/02/23 09:00 09/02/23 09:00 09/02/23 08:00 Nasal Cannula 2 09/02/23 08:00 09/02/23 07:15 Nasal Cannula 2 09/02/23 07:00 09/02/23 07:00 09/02/23 06:01 09/02/23 06:01 09/02/23 06:00 Nasal Cannula 2 09/02/23 05:00 09/02/23 05:00 09/02/23 04:00 Nasal Cannula 2 09/02/23 04:00 09/02/23 03:00 09/02/23 03:00 09/02/23 02:01 09/02/23 02:01 09/02/23 02:00 09/02/23 01:00 09/02/23 01:00 09/02/23 00:00 09/01/23 23:00 Oxymask 2 09/01/23 23:00 09/01/23 23:00 Oxymask 2 09/01/23 22:00 09/01/23 22:00 Lab & Micro Results (Past 24 Hours) RBC 3.05 M/uL (4.70-6.10) L 09/02/23 WBC 20.22 K/ul (4.8-10.8) H 09/02/23 Hgb 9.5 g/dl (14.0-18.0) L 09/02/23 Hct 29.1 % (42.0-52.0) L 09/02/23 MCV 95.4 fL (80.0-100.0) 09/02/23 MCH 31.1 pg (25.0-34.0) 09/02/23 MCHC 32.6 g/dL (32.0-36.0) 09/02/23 RDW Standard Deviation 49.0 fL (36.4-46.3) H 09/02/23 RDW Coefficient of Variation 14.1 % (11.5-14.5) 09/02/23 Plt Count 194 K/uL (130-400) 09/02/23 MPV 9.5 fL (9.4-12.4) 09/02/23 Neutrophils (%) (Auto) 91.6 % 09/02/23 Lymphocytes (%) (Auto) 1.7 % 09/02/23 Monocytes # (Auto) 0.67 K/uL (0.11-0.59) H 09/02/23 Eosinophils # (Auto) 0.01 K/uL (0.00-0.50) 09/02/23 Immature Granulocyte % (Auto) 3.3 % 09/02/23 Neutrophils # (Auto) 18.50 K/uL (1.40-6.50) H 09/02/23 Lymphocytes # (Auto) 0.35 K/uL (1.20-3.40) L 09/02/23 Monocytes # (Auto) 0.67 K/uL (0.11-0.59) H 09/02/23 Eosinophils # (Auto) 0.01 K/uL (0.00-0.50) 09/02/23 Basophils # (Auto) 0.02 K/uL (0.00-0.20) 09/02/23 Immature Granulocyte # (Auto) 0.67 K/uL (0.01-0.20) H 09/02 Echinocytes 1+ 09/02/23 Na 137 mmol/L (136-145) 09/02/23 K 4.7 mmol/L (3.5-5.1) 09/02/23 Cl 110 mmol/L (98-107) H 09/02/23 CO2 18 mmol/L (21-32) L 09/02/23 Anion Gap 9 (3-11) 09/02/23 BUN 35 mg/dl (6-23) H 09/02/23 Creatinine 1.93 mg/dl (0.6-1.4) H 09/02/23 Estimated GFR ( Amer) 39.2 ml/min 09/02/23 Estimated GFR (Non-Af Amer) 33.8 ml/min 09/02/23 BUN/Creatinine Ratio 18.1 (10-20) 09/02/23 Glu 132 mg/dl (70-99(Fasting)) H 09/02/23 Ca 7.9 mg/dl (8.6-10.3) L 09/02/23 Phosphorus Level 3.9 mg/dl (2.5-4.9) 09/02/23 Mg 1.4 mg/dl (1.7-2.4) L 09/02/23 04:55 Calcium Level 7.9 mg/dl (8.6-10.3) L 09/02/23 04:55 Microbiology 08/31/23 08:48 Gram Stain - Final Peritoneal Fluid Aerobic and Anaerobic Culture - Preliminary Pseudomonas aeruginosa 08/31/23 04:27 Aerobic Blood Culture - Preliminary Blood No growth in Aerobic bottle after 48 hours. Anaerobic Blood Culture - Final 08/31/23 04:27 Aerobic Blood Culture - Preliminary Blood No growth in Aerobic bottle after 48 hours. Anaerobic Blood Culture - Preliminary No growth in Anaerobic bottle after 48 hours. 09/01/23 08:43 Fungal Smear - Final Blood 08/31/23 08:46 Urine Culture - Preliminary Urine,Straight Cath No growth - Less than 1,000 colonies/mL, Final report to follow. 08/26/23 17:47 Aerobic Blood Culture - Final Blood No growth in Aerobic bottle after 5 days. Anaerobic Blood Culture - Final No growth in Anaerobic bottle after 5 days. 08/26/23 17:46 Aerobic Blood Culture - Final Blood No growth in Aerobic bottle after 5 days. Anaerobic Blood Culture - Final I & O Totals 24 Hours 09/01/23 09/02/23 09/03/23 06:59 06:59 06:59 Intake Total 6116.130 / 6116.130 2820.121 / 2820.121 677 / 677 Output Total 1440 / 1440 1340 / 1340 Balance 4676.130 / 4676.130 1480.121 / 1480.121 677 / 677 Cumulative 08/26/23 17:05 thru 09/02/23 09:50 Intake Total 25503.001 Output Total 5364 Balance 63221.001 RT Ventilator Mngmt (Last Documented) Ventilator Ordered Settings Ventilator Support Mode Assist Control 09/01/23 08:00 Respiratory Rate 28 09/02/23 09:00 Ventilator Tidal Volume 400 09/01/23 08:00 Setting Minute Ventilation 10.1 09/01/23 07:50 Ventilator Positive Pressure 5 09/01/23 07:50 Support Setting Positive End Expiratory 5 09/01/23 08:00 Pressure Fraction of Inspired Oxygen 40 09/01/23 08:00 Machine Comment weaned to 35% 08/31/23 20:22 Ventilator - PT Measurements Respiratory Rate 28 Exhaled Tidal Volume 346 Minute Ventilation 10.1 Peak Inspiratory Airway 12 Pressure Plateau Pressure 19 Respiratory Cycle Inspiratory: 1:2.9 Expiratory Ratio Inspiratory Phase Time 0.6 End-Tidal CO2 25 Static Lung Compliance 27.29 Dynamic Lung Compliance 49.43 Normal Static Lung Compliance 48.00 Patient Measurements Comment patient extubated to 3L oxy mask, SPO2 98% Coding Level of Care Code 99548 SUB INP/OBS CARE 3/50MIN Diagnoses Pneumonia J18.9 Laterality: left Lung location: unspecified part of lung Pneumonia type: due to unspecified organism Abnormal CT scan, chest R93.89 COPD (chronic obstructive pulmonary disease) J44.9 (1) Pneumonia Laterality: left Lung location: unspecified part of lung Pneumonia type: due to unspecified organism Qualified Code(s): J18.9 - Pneumonia, unspecified organism
--- NOTE | 2023-09-02 11:31 | Surgery Progress Note ---
Date of Service September 02, 2023 Assessment & Plan (1) Perforated viscus: Plan: begin clears OOB daily dressings Admission and Anticipated Discharge Date Admission Date: August 26, 2023 Subjective more alert pain pretty well controlled no flatus Review of Systems Constitutional: no fever and no chills Respiratory: + dyspnea; no cough Cardiovascular: no chest pain Gastrointestinal: + abdominal pain; no nausea and no vomit ing Genitourinary: no dysuria Neurologic: + generalized weakness Physical Exam Constitutional: + thin Respiratory: Auscultation: + diminished lung sounds Cardiovascular: RRR, no murmur, no edema Gastrointestinal (Abdomen): Inspection/Auscultation: abdomen normal to inspection, + abdomen distended, normal bowel sounds and + abdominal surgical incision Percussion/Palpation: + abdomen tender and abdomen soft [place] serosanguinous Musculoskeletal: Head/Neck/Chest: normocephalic and head atraumatic Results & Data Vital Signs (Past 12 Hours) Vital Signs Temp Pulse Pulse Resp BP Pulse Ox O2 Del Method 09/02/23 09:00 37.0 C 105 H 28 H 96 09/02/23 09:00 137/81 09/02/23 08:00 35.8 C L 104 H 35 H 97 Nasal Cannula 09/02/23 08:00 151/87 H 09/02/23 07:15 103 H 17 100 Nasal Cannula 09/02/23 07:00 37.1 C 100 H 38 H 98 09/02/23 07:00 147/85 H 09/02/23 06:01 37.3 C 106 H 38 H 96 09/02/23 06:01 153/93 H 09/02/23 06:00 37.3 C 105 H 34 H 96 Nasal Cannula 09/02/23 05:00 37.4 C 102 H 35 H 98 09/02/23 05:00 139/89 09/02/23 04:00 37.4 C 117 H 25 H 100 Nasal Cannula 09/02/23 04:00 133/90 09/02/23 03:00 37.5 C 119 H 31 H 99 09/02/23 03:00 134/88 09/02/23 02:01 37.7 C H 102 H 32 H 99 09/02/23 02:01 123/82 09/02/23 02:00 37.7 C H 102 H 27 H 100 09/02/23 01:00 37.8 C H 103 H 36 H 99 09/02/23 01:00 128/80 09/02/23 00:00 37.9 C H 108 H 31 H 97 O2 Flow Rate 09/02/23 09:00 09/02/23 09:00 09/02/23 08:00 2 09/02/23 08:00 09/02/23 07:15 2 09/02/23 07:00 09/02/23 07:00 09/02/23 06:01 09/02/23 06:01 09/02/23 06:00 2 09/02/23 05:00 09/02/23 05:00 09/02/23 04:00 2 09/02/23 04:00 09/02/23 03:00 09/02/23 03:00 09/02/23 02:01 09/02/23 02:01 09/02/23 02:00 09/02/23 01:00 09/02/23 01:00 09/02/23 00:00
[2023-09-02] MEDS: THIAMINE HCL 100 MG TAB PO SCH (21:45)
[2023-09-02] MEDS: METOPROLOL TARTRATE 25 MG TAB PO SCH (21:46)
[2023-09-02] MEDS ORDERED: LORazepam 0.25 MG in SYRINGE 0.125 ML IV ONE (22:30)
[2023-09-03] MEDS: MEROPENEM 500 MG in SYRINGE 0 ML IV SCH ×2 (02:10→10:43)
[2023-09-03] MEDS ORDERED: LORazepam 0.25 MG in SYRINGE 0.125 ML IV ONE (02:15)
[2023-09-03] MEDS ORDERED: LORazepam 1 MG in SYRINGE 0.5 ML IV ONE (04:45)
[2023-09-03] MEDS: ICU ELECTROLYTE REPLACEMENT PROTOCOL SCH (05:21)
[2023-09-03] MEDS: ALBUT/IPRATROP 3MG/0.5MG NEB 3 ML VIAL INH PRN ×2 (06:52→15:31)
[2023-09-03] MEDS: predniSONE 2.5 MG TAB PO SCH (08:45)
[2023-09-03] MEDS: FOLIC ACID 1 MG TAB PO SCH (08:46)
[2023-09-03] MEDS: CEROVITE ADV FORMULA TAB PO SCH ×2 (08:47→09:17)
[2023-09-03] MEDS: DOCUSATE SODIUM 100 MG CAP PO SCH ×3 (08:47→20:33)
[2023-09-03] MEDS: THIAMINE HCL 100 MG TAB PO SCH ×2 (08:48→20:34)
[2023-09-03] MEDS: METOPROLOL TARTRATE 25 MG TAB PO SCH ×2 (08:48→20:34)
--- NOTE | 2023-09-03 10:07 | XRay Report ---
XR chest 1V portable HISTORY: 73 years-old Male dyspnea, pneumonia acute shortness of breath COMPARISON: 08/31/2023 TECHNIQUE: AP view the chest FINDINGS: Status post removal of the endotracheal and enteric tubes and left subclavian central venous catheter . Cardiomegaly with pulmonary vascular congestion, mixed interstitial and alveolar opacities. Increased size of the layering right pleural effusion with progressive right basilar consolidation. Rib ORIF c hanges are noted. IMPRESSION: 1. Status post removal of the lines and tubes. 2. Cardiomegaly with progressive pulmonary edema and increased size of the right pleural effusion. 3. Multifocal bilateral airspace opacities are again noted suggestive of multifocal pneumonia. ACT 112: Negative or not required by law. The above report was generated using voice recognition software. It may contain grammatical, syntax o r spelling errors. Electronically signed by: Juan Carlos Rai M.D. 09/03/2023 10:06 AM
[2023-09-03 10:39] LABS: Base Excess VBG -5.5 mEq/L; HCO3 VBG 21 mmol/L; Oxygen Saturation VBG < 60.0 %; PCO2 VBG 42 mmHg (38-50); PO2 VBG 25 mmHg
[2023-09-03] MEDS: ZINC SULFATE 220 MG CAPSULE PO SCH (10:44)
[2023-09-03] MEDS: UMECLIDINIUM BROMIDE 62.5MCG/BLISTER 7 PUFFS/INHALER INH SCH (10:45)
[2023-09-03] MEDS: PANTOprazole 40 MG TAB PO SCH (10:45)
[2023-09-03] MEDS: HEPARIN SOD 5,000 UNIT/0.5 ML VIAL SQ SCH ×2 (10:46→20:39)
[2023-09-03] MEDS ORDERED: FUROSEMIDE INJ 20 MG/2 ML VIAL IV ONE (11:09)
[2023-09-03 11:11] LABS: BUN Creatinine Ratio 19.1 (10-20); Calcium 8.5 mg/dl (8.6-10.3); Creatinine Clr Calc Pharmacy 45.9 ml/min; Est GFR (African American) 59.8 ml/min; Est GFR (Non-African American) 51.6 ml/min; Magnesium 1.9 mg/dl (1.7-2.4); Phosphorus 3.2 mg/dl (2.5-4.9)
[2023-09-03] MEDS: CASPOFUNGIN 50 MG in SODIUM CHLORIDE 0.9% 250 ML IV SCH (11:14)
[2023-09-03] MEDS ORDERED: Nursing to Pharmacy Communication SCH (13:00)
[2023-09-03] MEDS ORDERED: bisacodyL 10 MG SUPP PR STA (15:24)
--- NOTE | 2023-09-03 15:48 | Hospitalist Progress Note ---
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 portable HISTORY: 73 years-old Male dyspnea, pneumonia acute shortness of breath COMPARISON: 08/31/2023 TECHNIQUE: AP view the chest FINDINGS: Status post removal of the endotracheal and enteric tubes and left subclavian central venous catheter. Cardiomegaly with pulmonary vascular congestion, mixed interstitial and alveolar opacities. Increased size of the layering right pleural effusion with progressive right basilar consolidation. Rib ORIF changes are noted. IMPRESSION: 1. Status post removal of the lines and tubes. 2. Cardiomegaly with progressive pulmonary edema and increased size of the right pleural effusion. 3. Multifocal bilateral airspace opacities are again noted suggestive of multifocal pneumonia. ACT 112: Negative or not required by law. The above report was generated using voice recognition software. It may contain grammatical, syntax or spelling errors. Electronically signed by: Juan Carlos Rai M.D. 09/03/2023 10:06 AM PG Care Time/CCT Total # of Minutes Spent Total Time Spent with Patient: I personally spent: 80 minutes today on clinical care activities including: reviewing chart notes and vital signs reviewing labs reviewing studies discussion with sediment remediation consultant(s) - barrel charrer discussions with bedside RN examining the patient - three bedside visits counseling the patient's family - several occasions as documented above writing orders documentation Coding Level of Care Code 10460 SUB INP/OBS CARE 3/50MIN (25 - SIGNIFICANT, SEPARATELY IDENTIFIABLE ) Diagnoses Acute hypoxic respiratory failure J96.01 Perforated viscus R19.8 Intra-abdominal abscess K65.1 Sepsis A41.9 Acute respiratory failure type: with hypoxia Sepsis acute organ dysfunction status: with acute organ dysfunction Sepsis type: sepsis due to unspecified organism Severe sepsis shock status: unspecified Multiple pulmonary nodules R91.8 Acute metabolic encephalopathy G93.41 Pneumonia J18.9 Laterality: left Lung location: unspecified part of lung Pneumonia type: due to unspecified organism SHEBA (acute kidney injury) N17.9 Elevated troponin R79.89 COPD (chronic obstructive pulmonary disease) J44.9 Paroxysmal A-fib I48.0 Alcohol abuse F10.10 Polymyalgia rheumatica M35.3 Severe protein-calorie malnutrition E43 Rheumatoid arthritis M06.9 Unilateral vocal cord paralysis J38.01 Anemia D64.9 (4) Sepsis Acute respiratory failure type: with hypoxia Sepsis acute organ dysfunction status: with acute organ dysfunction Sepsis type: sepsis due to unspecified organism Severe sepsis shock status: unspecified (7) Pneumonia Laterality: left Lung location: unspecified part of lung Pneumonia type: due to unspecified organism Qualified Code(s): J18.9 - Pneumonia, unspecified organism
--- NOTE | 2023-09-03 15:49 | Surgery Progress Note ---
Date of Service September 03, 2023 Assessment & Plan (1) Perforated viscus: Plan: F/U S/P Exploratory Laparotomy and Partial Resection of Cecum with Drainage of Pelvic Abscess, POD 3 slow making progress, waiting for pass gas, speech consult for evaluation aspiration. continue iv antibiotic Dulcolax 10 mg pr inclusion specialist surgeon cover this weekend, thanks. Admission and Anticipated Discharge Date Admission Date: August 26, 2023 Subjective F/U S/P Exploratory Laparotomy and Partial Resection of Cecum with Drainage of Pelvic Abscess, POD 3 pt is stable. slow making progress. family members at bedside. not pass gas or stool yet, no fever, no significant abdominal pain, no nausea, no vomiting,JUSTINA 340 ml , clear CXR-IMPRESSION: 1. Status post removal of the lines and tubes. 2. Cardiomegaly with progressive pulmonary edema and increased size of the right pleural effusion. 3. Multifocal bilateral airspace opacities are again noted suggestive of multifocal pneumonia. Physical Exam Eyes: PERRL, conjunctivae normal, anicteric sclerae Neck: trachea midline, no thyromegaly Respiratory: Auscultation: lungs clear to auscultation bilaterally Cardiovascular: Rate/Rhythm: + irregularly irregular Gastrointestinal (Abdomen): soft, mild tenderness at incision site, no rebound pain, the incision intact, no redness, BS +, JUSTINA intact, clear color Neurologic: awake, alert, pt understands what I say. Results & Data Vital Signs (Past 12 Hours) Vital Signs Temp Pulse Pulse Resp BP BP BP 09/03/23 15:36 100 H 28 H 09/03/23 10:54 168/106 H 09/03/23 10:31 36.7 C 92 H 18 167/90 H 158/105 H 09/03/23 08:03 36.7 C 98 H 18 165/92 H 09/03/23 07:45 94 H 09/03/23 06:53 96 H 18 09/03/23 06:07 09/03/23 04:35 104 H 41 H 175/94 H 09/03/23 04:04 102 H 38 H Pulse Ox O2 Del Method O2 Flow Rate 09/03/23 15:36 99 Oxymask 15 09/03/23 10:54 09/03/23 10:31 90 Nasal Cannula 4 09/03/23 08:03 90 Nasal Cannula 2 09/03/23 07:45 09/03/23 06:53 95 Nasal Cannula 3 09/03/23 06:07 93 Nasal Cannula 3 09/03/23 04:35 91 Nasal Cannula 6 09/03/23 04:04 91 Nasal Cannula 6 Laboratory Results Abnormal lab results 09/03/23 Range/Units 10:31 VBG pH 7.30 L (7.36-7.41) Chloride 111 H (98-107) mmol/L Carbon Dioxide 20 L (21-32) mmol/L BUN 26 H (6-23) mg/dl Calcium 8.5 L (8.6-10.3) mg/dl Diagnostic Findings XR chest 1V portable HISTORY: 73 years-old Male dyspnea, pneumonia acute shortness of breath COMPARISON: 08/31/2023 TECHNIQUE: AP view the chest FINDINGS: Status post removal of the endotracheal and enteric tubes and left subclavian central venous catheter. Cardiomegaly with pulmonary vascular congestion, mixed interstitial and alveolar opacities. Increased size of the layering right pleural effusion with progressive right basilar consolidation. Rib ORIF changes are noted.
[2023-09-03] MEDS: PIPER/TAZO 4.5g in D5W MINI-B 100 ML IV SCH (18:04)
[2023-09-03] MEDS: ACETAMINOPHEN 1,000 MG/100 ML VIAL IV PRN (18:43)
[2023-09-03] MEDS: HALOPERIDOL LACTATE 5 MG/ML 1 ML VIAL IV PRN (20:34)
[2023-09-04] MEDS: PIPER/TAZO 4.5g in D5W MINI-B 100 ML IV SCH ×3 (00:59→17:56)
[2023-09-04] MEDS: HALOPERIDOL LACTATE 5 MG/ML 1 ML VIAL IV PRN (04:42)
[2023-09-04] MEDS: ACETAMINOPHEN 1,000 MG/100 ML VIAL IV PRN ×2 (04:44→17:56)
--- NOTE | 2023-09-04 06:31 | Surgery Progress Note ---
Date of Service September 04, 2023 Assessment & Plan (1) Pneumoperitoneum of unknown etiology: Plan: Patient is status post exploratory laparotomy with cecal resection on 08/31/2023 (postop day #4) Continue clear liquids as mental status will allow Analgesics as needed Antiemetics as needed Continue JUSTINA drain to bulb suction Continue antibiotics/antifungals in the form of caspofungin and Zosyn. Of note, peritoneal fluid from 08/31/2023 grew Pseudomonas which is sensitive to Zosyn. Check a.m. labs when available Subcutaneous heparin is in place for DVT prevention Results of family discussion notedfamily would like to continue current leve l of care but if further decline is noted escalation of care will likely not be undertaken Admission and Anticipated Discharge Date Admission Date: August 26, 2023 Supervising Physician Co-Signing Physician Notes Patient was seen this am. I have received the reports from the surgical PA and nursing regarding his combativeness that began on evening requiring the administration of Ativan and most recently Haldol. As such, he is not AAOx3 this am. He is mildly responding to his name being called and pain with abdominal evaluation. He is on a Face mask with 6L O2 flow and 100% oxygenation. His HR is in the 90's and he has a good and regular peripheral pulse (radial). JUSTINA with serosanguinous drainage. Nursing documented 195mL of output over the past 24 hours which was decreased from the previous 24 hour period of 220. The laborer construction or leak gang was in the room during my exam to prepare for blood work collection. The patient displays clear discomfort to lightly mobilizing dressings away to evaluate abdominal incision which appears intact with angela, no evidence for bleeding or drainage. His abdomen is mildly distended. Could consider head CT to r/o acute intracranial cause to recent mental status change. Per medicine if deemed appropriate. F/U H/H (which was stable for post op days 1 and 2). He has remained HD stable. Significant leukocytosis was present on previous post op labs, will f/u with labs once obtained. Of note, patient has remained afebrile. Patient should be NPO until mental status is improved for risk of aspiration. I have changed his diet status to NPO this am. Please message medicine or surgery if condition changes and becomes appropriate for a diet to restart clears. Keep head of bed elevated. Keep lights on in the room during the daytime, open blinds if able. In the evening, keep noise level down in and around the patient's room. Sleep aid if appropriate. D/W medicine. If mental status improves, get up, OOB to chair. Subjective Patient is currently sleeping. I discussed with nursing staff. Patient noted to have episodes of confusion/combativeness that response to Haldol. No other issues identified Physical Exam Gastrointestinal (Abdomen): Abdomen is minimally distended. Incision is intact with angela with a small amount of serous drainage. JUSTINA drain is in place draining serous fluid and is drained approximately 245 cc over the past 24 hours. Bowel sounds are hypoactive. Results & Data Vital Signs (Past 12 Hours) Vital Signs Temp Pulse Resp BP BP Pulse Ox Pulse Ox 09/04/23 02:26 36.4 C L 92 H 18 120/74 100 09/03/23 23:05 36.4 C L 98 H 29 H 138/87 100 09/03/23 22:05 100 09/03/23 19:50 09/03/23 19:25 97 H 28 H 146/84 H 100 O2 Del Method O2 Del Method O2 Flow Rate O2 Flow Rate 09/04/23 02:26 Oxymask 6 09/03/23 23:05 Nasal Cannula 6 09/03/23 22:05 Oxymask 6 09/03/23 19:50 Nasal Cannula 09/03/23 19:25 Oxymask 15 PG Care Time/CCT Total # of Minutes Spent Total Time Spent with Patient: Total time spent is greater than 50% in coordination of care (as documented) at patient's floor/unit and/or counseling patient: Coding Level of Care Code 38166 Post Operative Follow-Up Diagnoses Pneumoperitoneum of unknown etiology K66.8
[2023-09-04 08:30] LABS: Calcium 8.5 mg/dl (8.6-10.3); Magnesium 1.8 mg/dl (1.7-2.4); Potassium 4.9 mmol/L (3.5-5.1)
[2023-09-04] MEDS: DOCUSATE SODIUM 100 MG CAP PO SCH ×2 (08:32→21:12)
[2023-09-04] MEDS: FOLIC ACID 1 MG TAB PO SCH (08:32)
[2023-09-04] MEDS: CASPOFUNGIN 50 MG in SODIUM CHLORIDE 0.9% 250 ML IV SCH (08:32)
[2023-09-04] MEDS: predniSONE 2.5 MG TAB PO SCH (08:33)
[2023-09-04] MEDS: METOPROLOL TARTRATE 25 MG TAB PO SCH ×2 (08:33→21:08)
[2023-09-04] MEDS: CEROVITE ADV FORMULA TAB PO SCH (08:33)
[2023-09-04] MEDS: ZINC SULFATE 220 MG CAPSULE PO SCH (08:33)
[2023-09-04] MEDS: PANTOprazole 40 MG TAB PO SCH (08:33)
[2023-09-04] MEDS: THIAMINE HCL 100 MG TAB PO SCH ×2 (08:33→21:08)
[2023-09-04] MEDS: UMECLIDINIUM BROMIDE 62.5MCG/BLISTER 7 PUFFS/INHALER INH SCH (08:33)
[2023-09-04] MEDS: HEPARIN SOD 5,000 UNIT/0.5 ML VIAL SQ SCH ×2 (08:38→21:09)
[2023-09-04 08:49] LABS: BUN Creatinine Ratio 20.5 (10-20); Creatinine Clr Calc Pharmacy 49.2 ml/min; Est GFR (Non-African American) 56.1 ml/min; Phosphorus 4.5 mg/dl (2.5-4.9)
[2023-09-04] MEDS: OLANZapine ZYDIS 5 MG ORALLY DIS. TAB PO PRN (09:54)
[2023-09-04] MEDS: MoRPHine SULFATE 2 MG/ML CARP IV PRN ×2 (09:55→19:27)
[2023-09-04] MEDS ORDERED: FUROSEMIDE INJ 20 MG/2 ML VIAL IV ONE (10:00)
--- NOTE | 2023-09-04 17:13 | Hospitalist Progress Note ---
Date of Service September 04, 2023 Assessment & Plan (1) Acute hypoxic respiratory failure: Plan: has been 2nd to pneumonia - multifocal airspace infiltrates present on admission chest CT and on CTA 08/31. Respiratory status has not substantially improved despite many days appropriate antibiotics. Suspect he does have aspiration events and worsening 09/03- appears driven by acute pulmonary edema -aspiration pneumonia/pneumonitis is possible, passed VFSS earlier in hospital stay -intubated 08/31, extubated 09/01 -continue broad spectrum abx as below -diuresis - 20 mg IV Lasix given 09/03, 09/04 AM with good response -avoid sedating medications including lorazepam. ordered low dose haldol or olanzapine if needed for agitated delirium (2) Perforated viscus: Plan: Reported to have had possible SBO while in ICU at previous hospital, resolved Developed worsening sepsis and abdominal distention 08/30. CT abdomen and pelvis obtained revealed perforated abdomen. Required admission to ICU, intubation, mechanical ventilation and central line placement early AM 08/31. Underwent laparotomy 08/[address] Sorenson with finding of pneumoperitoneum due to perforated cecum and associated abscess. Abscess was drained and cecum was partially resected -remains severely ill and extremely high risk for mortality and morbidity, intubated on vent from 08/31 - 09/01 -continue broad-spectrum IV antibiotics: pip-tazo end date 09/11 after discussion with clinical pharmacist and review of cultures, vancomycin stopped, caspofungin x 6 days- reviewed 09/02 gram stain GNR, GPR, yeast. Culture growing valderrama-sensitive pseudomonas and bacteroides caccae -JUSTINA drain RLQ -await return of bowel function, surgery advanced diet to clears - has BT now -pathology of cecum showed 0.1 cm perforation, no malignancy -AM CBC (3) Intra-abdominal abscess: Plan: as above (4) Sepsis: Plan: Initially entirely attributed to pneumonia, later bowel perforation and abscess. -as above -follow blood cultures, urine culture - NGTD 09/04 (5) Multiple pulmonary nodules: Plan: Extensive bilateral pulmonary masses present, largest in PATEL, consistent with metastatic disease versus septic pulmonary emboli of note - he did have bronchoscopy while on the vent in [place] - 08/06/23 - no endobronchial lesions seen -per review of display designer outside's conversation with his family 08/31 he would not want to undergo chemotherapy or other cancer treatment thus no biopsy planned at this time -MRI brain w/wo planned not currently stable enough. reportedly had one in [place], no report available and unknown whether with contrast -hypodensity in/below liver poorly visualized on contrast CT -reviewed Dr. Escobar's recommendations - repeat chest CT in 4-6 weeks to assess change in lesions, if resolving then c/w septic emboli (6) Acute metabolic encephalopathy: Plan: multifactorial - hospital psychosis, sepsis, pneumonia; can't rule out nutritional deficiencies (Wernicke's, etc). -some improvement 09/04 but continues to have agitated delirium -continue prn low dose olanzapine and haloperidol for severe agitation -avoid BZDs -improved with low dose morphine IV for pain B12 wnl. B1 level still pending - thiamine 500mg IV q8h x 2 days, then 200mg BID thereafter (due to h/o alcoholism). (7) Pneumonia: Plan: see above (8) SHEBA (acute kidney injury): Plan: SHEBA on presumed CKD Baseline renal function? limited records show Cr 1.5 on 08/25/23 prior to d/c from [facility] Had CT contrast for emergency studies 08/31 Cr had improved down to best of 1.6 following admission but increased back to 2's. 1.27 today with good UOP last 48h on diuretics -follow BMP and UOP -avoid nephrotoxins (9) Elevated troponin: Plan: Peak HS trop 79. TTE 08/27 without rwma's consistent with myocardial demand ischemia, no evidence of ACS. (10) COPD (chronic obstructive pulmonary disease): Plan: Emphysema noted on chest CTs -continue bronchodilators (11) Paroxysmal A-fib: Plan: Had such while at [facility], while critically ill. 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 Went thru withdrawal at [facility]. Had etoh withdrawal seizures by report. Check B1 level. Should be on MVI/thiamine/folate supplementation - ordered. no evidence of any ongoing withdrawal. last etoh beverage is 30+ days ago. (13) Polymyalgia rheumatica: Plan: Sees rheum for such. On chronic steroids - basal dose uncertain. Stress dose steroids if hypotension/shock develops -pred 7.5 mg daily (14) Severe protein-calorie malnutrition: Plan: Patient cachectic, etc. -taker off consult -clears currently (15) Rheumatoid arthritis: Plan: On prednisone + plaquenil chronically for such. No evidence of RA flare. Plaquenil held because of infection. Continue prednisone 7.5 mg daily (16) Unilateral vocal cord paralysis: Plan: Due to intubation/ventilation years ago at [facility] following a logging accident. (17) Anemia: Plan: B12, folate, Fe studies wnl. Likely anemia of chronic disease from RA, bone marrow suppression from etoh, blood draws, etc, acute blood loss anemia postop, Hct 09/02 stable and adequate Plan family at bedside extensively updated by display designer outside 08/31, they stated he would not want chemotherapy if cancer confirmed, changed resuscitation status to DNR family meeting 09/03 with myself and with display designer outside - DNR/DNI, transition to comfort measures if clinically deteriorating only have about 1/2 the records from [facility] - we have requested records again, particularly radiological reports and micro reports Hypomagnesemia - replaced, normal 09/04 Eliquis held -SQ heparin DVT ppx -SCDs Admission and Anticipated Discharge Date Admission Date: August 26, 2023 Subjective I saw Mr. Porras twice today. In the fire prevention forester he was sleepy and seemed mildly sedated. His nurse reported that he had been very agitated. This improved after olanzapine, replacement of Mcintosh catheter, some morphine for abdominal pain. I saw him again in the mid afternoon with his family at bedside he was awake alert looked much better he did not complain of pain, his shortness of breath was improved. Physical Exam 2 Physical Exam: PHYSICAL EXAMINATION Last 24h vital signs reviewed, see documentation in flowsheet General: ill appearing elderly gentleman, Awake and alert on second visit HEENT: atraumatic, moist mucus membranes Lungs: scant crackles anteriorly no wheezing, cannot get posterior exam. much less tachypneic. increase resp effort. on facemask O2 Heart: tachycardic Regular rate and rhythm, no murmurs. L SC TLC in place Abdomen: softer, TTP RLQ, abdominal binder, JUSTINA with serous drainage RLQ, normal active bowel sounds now present Extremities: Warm, dry, well-perfused. mild extremity edema x arms and legs resolving Neuro: awake alert and oriented to hospital, soft hoarse voice, speaks little, darshan, moving 4 ext Skin: w/d no rash Psych: not currently agitated Results & Data Results & Data Vital Signs (Past 12 Hours) Vital Signs Temp Pulse Pulse Resp BP BP Pulse Ox 09/04/23 15:12 36.7 C 114 H 22 130/82 100 09/04/23 11:52 36.4 C L 106 H 20 141/73 H 09/04/23 08:03 36.3 C L 97 H 17 131/81 100 09/04/23 08:00 93 H 09/04/23 08:00 O2 Del Method O2 Flow Rate 09/04/23 15:12 Oxymask 6 09/04/23 11:52 09/04/23 08:03 Oxymask 09/04/23 08:00 09/04/23 08:00 Oxymask 6 Laboratory Results 09/02/23 04:55 09/04/23 08:07 PG Care Time/CCT Total # of Minutes Spent Total Time Spent with Patient: Total time spent is greater than 50% in coordination of care (as documented) at patient's floor/unit and/or counseling patient: Coding Level of Care Code 57986 SUB INP/OBS CARE 3/50MIN Diagnoses Acute hypoxic respiratory failure J96.01 Perforated viscus R19.8 Intra-abdominal abscess K65.1 Sepsis A41.9 Acute respiratory failure type: with hypoxia Sepsis acute organ dysfunction status: with acute organ dysfunction Sepsis type: sepsis due to unspecified organism Severe sepsis shock status: unspecified Multiple pulmonary nodules R91.8 Acute metabolic encephalopathy G93.41 Pneumonia J18.9 Laterality: left Lung location: unspecified part of lung Pneumonia type: due to unspecified organism SHEBA (acute kidney injury) N17.9 Elevated troponin R79.89 COPD (chronic obstructive pulmonary disease) J44.9 Paroxysmal A-fib I48.0 Alcohol abuse F10.10 Polymyalgia rheumatica M35.3 Severe protein-calorie malnutrition E43 Rheumatoid arthritis M06.9 Unilateral vocal cord paralysis J38.01 Anemia D64.9 (4) Sepsis Acute respiratory failure type: with hypoxia Sepsis acute organ dysfunction status: with acute organ dysfunction Sepsis type: sepsis due to unspecified organism Severe sepsis shock status: unspecified (7) Pneumonia Laterality: left Lung location: unspecified part of lung Pneumonia type: due to unspecified organism Qualified Code(s): J18.9 - Pneumonia, unspecified organism
[2023-09-05] MEDS: PIPER/TAZO 4.5g in D5W MINI-B 100 ML IV SCH ×3 (01:15→21:40)
[2023-09-05] MEDS: MoRPHine SULFATE 2 MG/ML CARP IV PRN (01:15)
[2023-09-05] MEDS: OLANZapine ZYDIS 5 MG ORALLY DIS. TAB PO PRN (01:20)
[2023-09-05 03:34] LABS: Base Excess ABG -5.2 mEq/L (-9-1.8); HCO3 ABG 23 mmol/L (19-24); Oxygen Saturation ABG 98.9 % (90-95); PCO2 ABG 53 mmHg (35-46); PO2 ABG 139 mmHg (80-95); pH ABG 7.24 (7.35-7.45)
[2023-09-05] MEDS: LACTATED RINGER'S 1,000 ML IV SCH ×2 (03:38→21:00)
--- NOTE | 2023-09-05 03:38 | Communication Note ---
Date of Service: September 05, 2023 I was notified at approximately 0240 hrs. the patient had become bradypneic and was having agonal breathing. He was originally on 6 L oxymask which he had been on throughout the entire shift. It seems over the past 15 minutes prior to the [place] text being sent, patient has been saturating in the 60s with tachycardia as well. Nurse had reported that this was a drastic change from earlier in the shift. It seems that he was eating and communicating well compared to previous days. He was also ambulating at one point today as well. Upon my arrival, patient is breathing slowly and heavily and appears almost nonresponsive. Physical exam: General: Frail appearing male that is minimally responsive to verbal stimuli CV: Regular rhythm with mild tachycardia. No appreciated murmurs Resp: Shallow breathing with diminished lung sounds on the right compared to the left Extremities: Warm, dry, but pale. Vitals: BP: 111/64 P: 98 RR: 10 O2: 64% on Oxymask at 15L Imaging: Chest XR: Per my interpretation R sided opacities that seem somewhat worse in than previous XR. Pulmonary edema seems to have improved. A/P Acute hypoxic respiratory failure: -Seems to be in acute decompensation likely secondary to aspiration resulting in worsening right-sided opacities -Placed on strict n.p.o. -Family contacted and updated. No change in management status for now (i.e. keep DNR/DNI, do not advance to comfort measures at this time) -Family lives an hour and a half away and will be coming -Started on BiPAP which improved his O2 saturation to 100% -ABG 30 minutes after initiation, adjust BiPAP accordingly -Will continue to monitor, but patient is stable for now I was contacted by resident physician at approximately 3:03 AM if I could come t o the patient's bedside as he was decompensating. We arrived to the bedside at 3:05 AM. The events are as described above in the resident physician's note. Mr. Porras is well-known known to me from events from the other night when he went into respiratory failure and had a perforated bowel and had to go to surgery stat. Subsequently to this the patient has been made a DO NOT RESUSCITATE. Stat bedside chest x-ray this evening showed acute infiltrate right middle/lower lobe consistent with acute aspiration -this is per my interpretation at the bedside official radiology report pending. The patient was responding to BiPAP therapy was initially placed on 100% FiO2. His saturations came up to 100%. We titrated initially down to 80% then down to 60% prior to me leaving the room. ABGs does show that the patient is mildly hypercapnic ABGs do show the patient is mildly acidotic and mildly hypercapnic with a PH7.24 pCO2 of 53 with a pO2 of 139. We are notifying respiratory to continue to titrate oxygen down to keep sats between 88 and 90, if possible. Repeat ABGs will be forthcoming when approximately 1 hour. Family has been contacted by Dr. Valdez and are they are in route to the hospital at this time. On my physical examination the patient is alert and oriented he follows commands with hand grasping on command. He does admit to being shortness of breath and having abdominal discomfort. HEENT normocephalic/atraumatic his heart was regular rate and rhythm he is not tachycardic at this time his lungs are coarse bilaterally right greater than left. His abdomen was status post laparotomy. Extremities are intact with no significant edema. In general he is quite cachectic appears somewhat older than his stated age. Assessment/plan: As described above. Acute hypoxemic respiratory failure secondary to probable aspiration pneumonia. Broad-spectrum IV antibiotic therapy NPO. In addition the patient developed mild hypercapnia on respiratory resuscitation. Will titrate down the FiO2 as tolerated and repeat ABGs.
[2023-09-05 03:45] LABS: Allen Test Pos (Pos)
[2023-09-05] MEDS: HALOPERIDOL LACTATE 5 MG/ML 1 ML VIAL IV PRN ×2 (05:14→21:41)
--- NOTE | 2023-09-05 05:32 | Communication Note ---
Date of Service: September 05, 2023 The patient's family did arrive to the hospital. The patient has been gradually improving from an oxygenation standpoint he is now off BiPAP he is down to simple facemask 4 L. Oxygen saturations are still approximately 96%. We have recommended pulse ox to try to be maintained between 88 and 90. The patient's family includes but the patient's daughter as well who assist son-in-law. All their questions were answered to their satisfaction and they were appreciative of our time this morning. They have been made aware the patient is very ill baron t this event is significant and could get worse from a respiratory standpoint. They were questioning nutrition we did say the for step is a swallowing evaluation to see if he can safely eat or drink at this time will await speech therapy's input. They voiced understanding and again were appreciative of our time this morning
--- NOTE | 2023-09-05 05:58 | Surgery Progress Note ---
Date of Service September 05, 2023 Assessment & Plan (1) Pneumoperitoneum of unknown etiology: Plan: Patient is status post exploratory laparotomy with cecal resection on 08/31/2023 (postop day #5) Due to concern for aspiration patient's dietary status has been back down to n.p.o. status. Continue respiratory support with oxygen/BiPAP Analgesics as needed Antiemetics as needed Continue JUSTINA drain to bulb suction Continue antibiotics/antifungals in the form of caspofungin and Zosyn. Of note, peritoneal fluid from 08/31/2023 grew Pseudomonas which is sensitive to Zosyn. Check a.m. labs when available Subcutaneous heparin is in place for DVT prevention Due to concern for aspiration event the hospital service will be discussing with family the goals of care. Admission and Anticipated Discharge Date Admission Date: August 26, 2023 Supervising Physician Co-Signing Physician Notes I saw and examined this patient this am. He is more awake at this time of the morning compared to yesterday am. His daughter is at the bedside confirming his sleep patterns are off at home and even worse here at this time noting he went to sleep at 5 am one morning then was awakened/back up at 9am. He is lethargic but able to respond to me. His O2 saturation requirement is decreased today to 4L face mask and he continues to Sat at 100%. He remains afebrile. He is denying abdominal pain, nausea, and believes he passed a small amount of flatus at some point yesterday. I would keep him NPO for today until we can be sure he is having more consistent bowel function and is generally well awake. Keep blinds open, lights on in the room during the day time. Discussed a potential mild, non-sedating sleep aid at bedtime tonight like Melatonin. OOB to chair today. Encourage incentive spirometer. PT eval and treat Dr. Sorenson will return tomorrow for continued surgical follow up and assessment. Subjective Patient noted to be somewhat lethargic at bedside and was unable to provide any subjective data. I discussed with nurse attending to patient. She notes that patient had noted some clinical improvement yesterday throughout the day and he was allowed popsicle/clear liquids. She does note that the patient became bradycardic and was noted to have agonal respirations earlier this evening. Patient was seen by the hospital service and it was felt the patient had a potential aspiration event. Physical Exam Gastrointestinal (Abdomen): Abdomen is soft and nondistended. Surgical incision is intact with angela. JUSTINA drain is in place draining serous fluid. Is drained approximate 25 cc over the past 24 hours Results & Data Vital Signs (Past 12 Hours) Vital Signs Temp Pulse Pulse Resp BP BP BP 09/05/23 04:09 89 21 09/05/23 03:06 84 31 H 09/05/23 03:00 36.1 C L 92 H 18 111/64 09/04/23 23:28 36.4 C L 78 28 H 155/76 H 09/04/23 22:01 09/04/23 19:56 09/04/23 19:00 36.8 C 102 H 24 148/88 H Pulse Ox Pulse Ox O2 Del Method O2 Del Method O2 Flow Rate O2 Flow Rate FiO2 09/05/23 04:09 100 50 09/05/23 03:06 100 80 09/05/23 03:00 100 BiPAP 09/04/23 23:28 95 Nasal Cannula 5 09/04/23 22:01 94 Room Air, Oxymask 6 09/04/23 19:56 Oxymask 09/04/23 19:00 98 Oxymask 6 PG Care Time/CCT Total # of Minutes Spent Total Time Spent with Patient: Total time spent is greater than 50% in coordination of care (as documented) at patient's floor/unit and/or counseling patient: Coding Level of Care Code 36003 Post Operative Follow-Up Diagnoses Pneumoperitoneum of unknown etiology K66.8
[2023-09-05 06:47] LABS: Base Excess ABG -3.4 mEq/L (-9-1.8); HCO3 ABG 24 mmol/L (19-24); Oxygen Saturation ABG 98.7 % (90-95); PCO2 ABG 49 mmHg (35-46); PO2 ABG 150 mmHg (80-95); pH ABG 7.29 (7.35-7.45)
[2023-09-05 06:48] LABS: Hematocrit (blood only) 28.5 % (42.0-52.0); Hemoglobin 9.1 g/dl (14.0-18.0); Mean Corpuscular Hemoglobin 31.3 pg (25.0-34.0); Mean Corpuscular Hgb Conc 31.9 g/dL (32.0-36.0); Mean Corpuscular Volume 97.9 fL (80.0-100.0); Platelet Count 138 K/uL (130-400); RDW Coefficient of Variation 13.6 % (11.5-14.5); RDW Standard Deviation 48.7 fL (36.4-46.3); Red Blood Count 2.91 M/uL (4.70-6.10); White Blood Count 12.11 K/ul (4.8-10.8)
[2023-09-05 07:22] LABS: BUN Creatinine Ratio 21.1 (10-20); Calcium 8.3 mg/dl (8.6-10.3); Creatinine Clr Calc Pharmacy 57.3 ml/min; Est GFR (African American) 78.2 ml/min; Est GFR (Non-African American) 67.5 ml/min; Magnesium 1.5 mg/dl (1.7-2.4); Potassium 4.7 mmol/L (3.5-5.1)
--- NOTE | 2023-09-05 07:28 | XRay Report ---
SINGLE VIEW CHEST CLINICAL HISTORY: Hypoxia. FINDINGS: An AP, portable, upright chest radiograph is compared to study dated 09/03/2023 and correla silvestre with chest CT dated 08/31/2023. The heart is mildly enlarged noting atherosclerotic calcification of the thoracic aorta. There is pulmonary vascular congestion. Advanced emphysema and chronic inters titial thickening is similar to previous. Multifocal airspace opacities persist. There are bilateral pleural effusions. Loculated pleural fluid is again suggested along the right lateral pleural space. No pneumothorax is seen. The skeletal structures are osteopenic. There is chronic deformity of the bi lateral ribs, several of which she'll buttress plate fixation. Arthritic change is noted in the shoul ders. IMPRESSION: 1. Cardiomegaly and emphysema with pulmonary vascular congestion. Pulmonary edema has modestly improv ed. 2. Multifocal bilateral airspace opacities are again noted and suggest pneumonia. Radiographic follow -up to resolution is recommended. 3. Small pleural effusions. Loculated pleural fluid is again suggested along the right lateral pleura l space. ACT 112: Negative or not required by law. Electronically signed by: hSay Kolb M.D. 09/05/2023 7:26 AM
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
[2023-09-05 08:23] LABS: Allen Test Pos (Pos)
[2023-09-05] MEDS: FOLIC ACID 1 MG TAB PO SCH (10:40)
[2023-09-05] MEDS: DOCUSATE SODIUM 100 MG CAP PO SCH ×2 (10:40→20:58)
[2023-09-05] MEDS: HEPARIN SOD 5,000 UNIT/0.5 ML VIAL SQ SCH ×2 (10:40→20:59)
[2023-09-05] MEDS: PANTOprazole 40 MG TAB PO SCH (10:41)
[2023-09-05] MEDS: CEROVITE ADV FORMULA TAB PO SCH (10:41)
[2023-09-05] MEDS: METOPROLOL TARTRATE 25 MG TAB PO SCH ×2 (10:41→20:58)
[2023-09-05] MEDS: THIAMINE HCL 100 MG TAB PO SCH ×2 (10:41→20:59)
[2023-09-05] MEDS: predniSONE 2.5 MG TAB PO SCH (10:41)
[2023-09-05] MEDS: UMECLIDINIUM BROMIDE 62.5MCG/BLISTER 7 PUFFS/INHALER INH SCH (10:42)
[2023-09-05] MEDS: ZINC SULFATE 220 MG CAPSULE PO SCH (10:42)
[2023-09-05] MEDS: MAGNESIUM SULFATE / D5W 1 GM/100 ML BAG IV SCH ×2 (10:57→13:10)
[2023-09-05] MEDS: CASPOFUNGIN 50 MG in SODIUM CHLORIDE 0.9% 250 ML IV SCH (11:15)
[2023-09-05] MEDS: ACETAMINOPHEN 1,000 MG/100 ML VIAL IV PRN ×3 (12:35→21:40)
--- NOTE | 2023-09-05 15:37 | Communication Note ---
Date of Service: September 05, 2023 2nd visit. Brother at bedside. Looks improved from this morning, stronger and a little more communicative Denied passing flatus. infrequent bowel tones. Remains tachypneic but not labored
[2023-09-06] MEDS ORDERED: HALOPERIDOL LACTATE 5 MG/ML 1 ML VIAL IM STA (00:04)
[2023-09-06] MEDS: PIPER/TAZO 4.5g in D5W MINI-B 100 ML IV SCH ×3 (05:15→21:23)
[2023-09-06 06:23] LABS: BUN Creatinine Ratio 23.5 (10-20); Calcium 7.8 mg/dl (8.6-10.3); Creatinine Clr Calc Pharmacy 73.4 ml/min; Est GFR (African American) 100.9 ml/min; Est GFR (Non-African American) 87.1 ml/min; Magnesium 1.6 mg/dl (1.7-2.4); Potassium 4.5 mmol/L (3.5-5.1)
--- NOTE | 2023-09-06 07:42 | Surgery Progress Note ---
Date of Service September 06, 2023 Assessment & Plan (1) Perforated viscus: Plan: F/U S/P Exploratory Laparotomy and Partial Resection of Cecum with Drainage of Pelvic Abscess, POD 3 slow making progress, waiting for pass gas, speech consult for evaluation aspiration. continue iv antibiotic Dulcolax 10 mg pr occupational therapist assistant surgeon cover this weekend, thanks. 09/06/2023 7:45 AM F/U S/P Exploratory Laparotomy and Partial Resection of Cecum with Drainage of Pelvic Abscess, POD 6 slow making progress, waiting for pass gas, speech consult for evaluation aspiration. pt was aspiration last night. continue iv antibiotic Dulcolax 10 mg pr pt may benefits from PPN, medicine team please order PPN, PICC line. Thanks. will F/U. Admission and Anticipated Discharge Date Admission Date: August 26, 2023 Supervising Physician Co-Signing Physician Notes I saw and examined this patient this am. He is more awake at this time of the morning compared to yesterday am. His daughter is at the bedside confirming his sleep patterns are off at home and even worse here at this time noting he went to sleep at 5 am one morning then was awakened/back up at 9am. He is lethargic but able to respond to me. His O2 saturation requirement is decreased today to 4L face mask and he continues to Sat at 100%. He remains afebrile. He is denying abdominal pain, nausea, and believes he passed a small amount of flatus at some point yesterday. I would keep him NPO for today until we can be sure he is having more consistent bowel function and is generally well awake. Keep blinds open, lights on in the room during the day time. Discussed a potential mild, non-sedating sleep aid at bedtime tonight like Melatonin. OOB to chair today. Encourage incentive spirometer. PT eval and treat Dr. Sorenson will return tomorrow for continued surgical follow up and assessment. Subjective Appears to have aspirated overnight. His daughter thinks this might of happened when he had a popsicle after getting some morphine. Transient severe hypoxia, improved on bipap. Now back on 4-5L O2 By facemask. Was only on clears. Passed VFSS earlier in hospital stay but mentation has waxed and waned. Family came in early this AM, spoke with him in the room. currently he does not complain of abdominal pain or dyspnea, says several times that he is hungry and wants to eat. says he is not passing flatus 09/06/2023 7:[address] Sorenson pt is alert and awake, he can answered my questions correctly. pt denies abdominal pain, no nausea, no vomiting, no fever. pt said he has not passed gas yet, but per-nurse- pt passed some BM yesterday. JUSTINA 160ml liquid. Gram Stain Final 08/31/23-1149 Gram Stain Result Many WBCs Seen Rare Gram Negative Bacilli Rare Gram Positive Bacilli Rare Yeast Aero/Lupe Cult Final 09/05/23-1205 Organism 1 Pseudomonas aeruginosa Quantity Few Sens Sensitivities to Follow +MixWound Plus Low Counts of Probable Intestinal Emma Organism 2 Bacteroides caccae Quantity Moderate Sens No Sensitivities to Follow P aerugino RX M.I.C. --- --------- Cefepime S <=2 Ceftazidime S 4 Ciprofloxacin S <=0.25 Gentamicin S <=4 Levofloxacin S <=0.5 Meropenem S <=1 Tobramycin S <=4 Pip/Tazo S <=16 Review of Systems Constitutional: no fever and no chills Eyes: as per Subjective / HPI Respiratory: + dyspnea; no cough Cardiovascular: no chest pain Gastrointestinal: + abdominal pain; no nausea and no vomit ing Genitourinary: no dysuria Neurologic: + generalized weakness Psychiatric: as per Subjective / HPI Endocrine: as per Subjective / HPI Hematologic / Lymphatic: Anemia Physical Exam Eyes: PERRL, conjunctivae normal, anicteric sclerae Neck: trachea midline, no thyromegaly Respiratory: Auscultation: lungs clear to auscultation bilaterally Cardiovascular: Rate/Rhythm: + irregularly irregular Gastrointestinal (Abdomen): soft, no tenderness, no distend, BS +, incision intact, no redness. Neurologic: patellar DTR's 2+ bilat, sensation intact Results & Data Vital Signs (Past 12 Hours) Vital Signs Temp Pulse Resp BP BP Pulse Ox Pulse Ox 09/06/23 07:33 37.0 C 108 H 19 170/93 H 100 09/06/23 03:00 36.5 C 108 H 26 H 166/92 H 98 09/05/23 23:43 36.8 C 99 H 28 H 139/79 100 09/05/23 22:09 98 09/05/23 21:16 O2 Del Method O2 Del Method O2 Flow Rate O2 Flow Rate 09/06/23 07:33 Oxymask 3.0 09/06/23 03:00 Oxymask 4 09/05/23 23:43 Oxymask 4 09/05/23 22:09 Oxymask, T-Piece 4 09/05/23 21:16 Oxymask 4
[2023-09-06] MEDS: predniSONE 2.5 MG TAB PO SCH (08:05)
[2023-09-06] MEDS: FOLIC ACID 1 MG TAB PO SCH (08:05)
[2023-09-06] MEDS: METOPROLOL TARTRATE 25 MG TAB PO SCH ×2 (08:05→19:41)
[2023-09-06] MEDS: DOCUSATE SODIUM 100 MG CAP PO SCH ×2 (08:05→19:41)
[2023-09-06] MEDS: CEROVITE ADV FORMULA TAB PO SCH (08:05)
[2023-09-06] MEDS: THIAMINE HCL 100 MG TAB PO SCH ×2 (08:05→19:41)
[2023-09-06] MEDS: PANTOprazole 40 MG TAB PO SCH (08:05)
[2023-09-06] MEDS: ZINC SULFATE 220 MG CAPSULE PO SCH (08:06)
[2023-09-06] MEDS ORDERED: TPN/PPN CONSULT PHARMACY STA (08:49)
[2023-09-06] MEDS ORDERED: TPN/PPN CONSULT PHARMACY PRN (08:59)
[2023-09-06 09:28] LABS: Hematocrit (blood only) 28.3 % (42.0-52.0); Hemoglobin 8.9 g/dl (14.0-18.0); Mean Corpuscular Hemoglobin 30.7 pg (25.0-34.0); Mean Corpuscular Hgb Conc 31.4 g/dL (32.0-36.0); Mean Corpuscular Volume 97.6 fL (80.0-100.0); Mean Platelet Volume 9.6 fL (9.4-12.4); Platelet Count 138 K/uL (130-400); RDW Coefficient of Variation 13.4 % (11.5-14.5); RDW Standard Deviation 48.6 fL (36.4-46.3)
[2023-09-06 09:51] LABS: BUN Creatinine Ratio 22.7 (10-20); Bilirubin,Total 0.4 mg/dl (0.2-1.0); Calcium 7.9 mg/dl (8.6-10.3); Creatinine Clr Calc Pharmacy 70.9 ml/min; Est GFR (African American) 99.5 ml/min; Est GFR (Non-African American) 85.8 ml/min; Magnesium 1.6 mg/dl (1.7-2.4); Phosphorus 2.1 mg/dl (2.5-4.9); Potassium 4.1 mmol/L (3.5-5.1)
[2023-09-06] MEDS: UMECLIDINIUM BROMIDE 62.5MCG/BLISTER 7 PUFFS/INHALER INH SCH (10:20)
[2023-09-06] MEDS: MAGNESIUM SULFATE / D5W 1 GM/100 ML BAG IV SCH ×2 (10:20→13:47)
[2023-09-06] MEDS: CASPOFUNGIN 50 MG in SODIUM CHLORIDE 0.9% 250 ML IV SCH (10:20)
[2023-09-06] MEDS: HEPARIN SOD 5,000 UNIT/0.5 ML VIAL SQ SCH ×2 (10:22→21:23)
[2023-09-06] MEDS: LACTATED RINGER'S 1,000 ML IV SCH (13:47)
--- NOTE | 2023-09-06 14:52 | Pharmacy Report ---
Pharmacy Initial PN Consult Nt - Date of Service September 06, 2023 - Scope Pharmacy has been consulted on 09/06 to manage parenteral nutrition orders and order appropriate labs. As part of the Nutrition Support Team Guidelines, pharmacy will work in conjunction with dietary when determining the patients c aloric needs. - Subjective * The patient is a 73 year old Male admitted on 08/26/23 for RESPIRATORY DISTRESS. S/p exlap on 08/31 with resection of cecum/drainage of pelvic a bscess. Surgery following and recommending short term PPN - Objective Vascular Access: * Patient currently has a peripheral line * Peripheral line was confirmed by IV Team to be acceptable for PPN use on 09/06 Height & Weight (Last Documented) Height 5 ft 7 in Weight 70.9 kg Diet Order(s) 09/05/23 03:12 NPO Intake & Ouput (24hrs) 09/05/23 09/06/23 09/07/23 06:59 06:59 06:59 Intake Total 660 / 660 1759.667 / 5114.325 8933 / 1460 Output Total 2095 / 2095 1137 / 1137 381 / 381 Balance -1435 / -1435 622.667 / 091.038 7148 / 1079 Selected Laboratory Results 09/06/23 09/06/23 09/06/23 05:44 08:58 08:58 Sodium 141 141 Potassium 4.5 4.1 Chloride 110 H 109 H Carbon Dioxide 26 27 Anion Gap 5 5 BUN 20 20 Creatinine 0.85 0.88 Est GFR ( Amer) 100.9 99.5 Est GFR (Non-Af Amer) 87.1 85.8 BUN/Creatinine Ratio 23.5 H 22.7 H Glucose 76 77 Calcium 7.8 L 7.9 L Phosphorus 2.1 L 2.1 L Magnesium 1.6 L 1.6 L Total Bilirubin 0.4 AST 12 L Alkaline Phosphatase [address] - Follow Up Nutrition Assessment Start: 08/28/23 21:16 Freq: Status: Active Protocol: Document 09/03/23 18:27 KK (Rec: 09/03/23 18:40 KK [id number]) RD - Initial Nutrition Assessment Start: 08/28/23 20:38 Freq: Status: Active Protocol: Document 08/28/23 20:39 KK (Rec: 08/28/23 21:16 KK [id number]) - Assessment & Plan Assessment: * Appreciate dietitians recommendations for macronutrients. Plan: * For Day #1 of PPN administration, the following will be ordered. Discussed with provider and plan to have PPN run at about same rate/volume as current fluids. Will have current fluids stop when PPN starts this evening. * Macronutrients: * Amino Acids: 64 grams/day * Dextrose: 75 grams/day * Lipids: 50 grams/day * Micronutrients: * Sodium phosphate: 21 mMol/day * Sodium chloride: 30 mEq/day * Sodium acetate: 60 mEq/day * Potassium acetate: 20 mEq/day * Magnesium sulfate: 8.12 mEq/day * Calcium gluconate: 4.65 mEq/day * Multivitamins: 10 mL/day * Trace elements: 1 mL/day * Thiamine: 200 mg/day * Folic Acid: 1 mg/day * Total volume of 1584 mL will be infused over 24 hours and will provide 1010 kcal/day * Patient is on PPN which has a maximum mOsm/L of 900. Final osmolarity of current solution is 819 mOsm/L. * Labs will be ordered per PN protocol. * Pharmacy will follow and adjust PN orders on a daily basis. Thank you!
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
[2023-09-06] MEDS ORDERED: CLINOLIPID 20% IV FAT EMULSION 250 ML IV SCH (16:00)
[2023-09-06] MEDS ORDERED: DEXTROSE 10% 1,000 ML IV PRN (16:00)
[2023-09-06] MEDS ORDERED: PERIPHERAL TPN IV SCH (16:00)
[2023-09-06] MEDS ORDERED: [UNRECOGNIZED DRUG - OTHER] IV SCH (16:00)
--- NOTE | 2023-09-06 16:43 | Communication Note ---
Date of Service: September 06, 2023 I updated his daughter Zaira by phone this afternoon. Having a good day. We discussed the difficulties evaluating his aspiration risk - he passed VFSS earlier in stay but that was necessary because he has constant throat clearing (related to Tourette's) and coughing that makes bedside ST swallow eval extremely difficult to interpret. He did have supplemental tube feeding in [place] for a period when he was extremely encephalopathic and she thinks he would be open to that if it was temporary and necessary to get him stronger. Currently I have messaged the surgeon whether he thinks contrast for VFSS would be safe for his bowel. If not safe, I think there is a strong argument to let him eat now based on his current level of alertness and passing the prior VFSS. He had received a low dose of IV morphine around the time of the nocturnal aspiration event, which he is no longer getting. I also spoke with her about palliative care consultation, which I think would be helpful given his inés clinical course and significant chance of further crises or readmission. They are open to that so I placed consult order.
[2023-09-06] MEDS ORDERED: STOP CLINOLIPID SCH (22:00)
[2023-09-07] MEDS ORDERED: MoRPHine SULFATE 2 MG/ML CARP IV STA ×2 (00:49→15:27)
[2023-09-07] MEDS: PIPER/TAZO 4.5g in D5W MINI-B 100 ML IV SCH ×2 (05:27→13:52)
[2023-09-07 07:27] LABS: Calcium 8.1 mg/dl (8.6-10.3); Magnesium 1.8 mg/dl (1.7-2.4)
[2023-09-07 07:33] LABS: BUN Creatinine Ratio 23.5 (10-20); Creatinine Clr Calc Pharmacy 77.1 ml/min; Est GFR (African American) 102.9 ml/min; Est GFR (Non-African American) 88.8 ml/min; Phosphorus 2.3 mg/dl (2.5-4.9)
[2023-09-07] MEDS: UMECLIDINIUM BROMIDE 62.5MCG/BLISTER 7 PUFFS/INHALER INH SCH (08:54)
[2023-09-07] MEDS: THIAMINE HCL 100 MG TAB PO SCH (08:54)
[2023-09-07] MEDS: METOPROLOL TARTRATE 25 MG TAB PO SCH (08:54)
[2023-09-07] MEDS: ZINC SULFATE 220 MG CAPSULE PO SCH (08:54)
[2023-09-07] MEDS: PANTOprazole 40 MG TAB PO SCH (08:54)
[2023-09-07] MEDS: HEPARIN SOD 5,000 UNIT/0.5 ML VIAL SQ SCH ×2 (08:55→22:30)
[2023-09-07] MEDS: DOCUSATE SODIUM 100 MG CAP PO SCH (08:55)
[2023-09-07] MEDS: CASPOFUNGIN 50 MG in SODIUM CHLORIDE 0.9% 250 ML IV SCH (09:27)
[2023-09-07] MEDS: HYDROCORTISONE SOD 20 MG in SYRINGE 0 ML IV SCH ×2 (10:24→16:48)
--- NOTE | 2023-09-07 12:04 | Palliative Care Consultation ---
Date of Consultation September 07, 2023 Assessment & Plan (1) Dyspnea and respiratory abnormalities: (2) Weakness generalized: (3) Altered mental status: Altered mental status type: delirium Qualified Code(s): R41.0 - Disorientation, unspecified (4) Palliative care by specialist: (5) Intra-abdominal abscess: (6) Perforated viscus: (7) Acute diastolic CHF (congestive heart failure): (8) Acute respiratory failure with hypoxia and hypercapnia: Plan * pt is not decisional and unable to participate in discussions re goals of care * he is acutely ill, delirious and confused, work up in progress * family meeting [facility], please let me know when they are here Thank you for allowing us to participate in the ongoing care of this patient. Please don't hesitate to call or page with any additional concerns. Dr. Jacqui Faulkner DNP Director, Palliative Care History of Present Illness Reason for Consultation: serious/prolonged illness, multiple clinical crises Attending Physician: Jd Barahona MD History of Present Illness Mr Porras is a 73yo male admitted with resp failure and now has worsening mental status and confusion. he has SBO with an intraabd abscess, complications of PNA, HF and some concerns for aspiration this has been completed by perforated viscus, following by surgery noted; pathology did not reveal an malignancy. perforation noted to be from cecum. he remains NPO, swallowing issues noted he has hypoxemia and hypercapnic resp failure CXR with persistent pu;m edema + effusion noted despite broad spectrum abtx at time of my visit this morning he is lying in bed, confused and unable to participate in consultation there is no family present at time of my visit but nursing advised they are expected to come in later today Allergies Allergy/AdvReac Type Severity Reaction Status Date / Time bee venom protein (honey bee) Allergy Severe Anaphylaxis Verified 08/26/23 19:49 lorazepam AdvReac Intermediate Confusion Verified 09/03/23 09:52 ibuprofen [From Motrin] AdvReac Mild Rash Verified 08/26/23 19:13 Home Medications Medication Instructions Recorded Confirmed Type acetaminophen 325 mg tablet 650 mg PO Q4H PRN Pain (Scale 08/26/23 08/26/23 History (Tylenol) Score 1-3) albuterol sulfate 90 mcg/actuation 1 puff inhalation Q6H PRN Wheezing 08/26/23 08/26/23 History aerosol inhaler amiodarone 200 mg tablet 200 mg PO DAILY 08/26/23 08/26/23 History amiodarone 200 mg tablet 200 mg PO Q12H 08/26/23 08/26/23 History amiodarone 200 mg tablet 400 mg PO BID 08/26/23 08/26/23 History apixaban 5 mg tablet (Eliquis) 5 mg PO Q12H 08/26/23 08/26/23 History bisacodyl 10 mg rectal suppository 10 mg WA DAILY PRN Constipation 08/26/23 08/26/23 History cholecalciferol (vitamin D3) 50 50 mcg PO DAILY 08/26/23 08/26/23 History mcg (2,000 unit) capsule (Vitamin D3) dextrose 40 % oral gel 1 ea PO DIRECTED PRN 08/26/23 08/26/23 History Hypoglycemia docusate sodium 100 mg capsule 100 mg PO BID 08/26/23 08/26/23 History hydroxychloroquine 200 mg tablet 200 mg PO Q12H 08/26/23 08/26/23 History ipratropium 0.5 mg-albuterol 3 mg 3 ml inhalation Q4H 08/26/23 08/26/23 History (2.5 mg base)/3 mL nebulization soln magnesium hydroxide 400 mg/5 mL 30 ml PO DAILY PRN Constipation 08/26/23 08/26/23 History oral suspension (Milk of Magnesia) metoprolol tartrate 25 mg tablet 25 mg PO Q12H 08/26/23 08/26/23 History multivitamin with minerals 1 tab PO DAILY 08/26/23 08/26/23 History nortriptyline 25 mg capsule 50 mg PO DAILY 08/26/23 08/26/23 History ondansetron HCl 4 mg tablet 4 mg PO Q4H PRN NAUSEA/VOMITING 08/26/23 08/26/23 History pantoprazole 40 mg tablet,delayed 40 mg PO DAILYBB 08/26/23 08/26/23 History release polyethylene glycol 3350 17 17 g PO QDL PRN Constipation 08/26/23 08/26/23 History gram/dose oral powder (Miralax) prednisone 20 mg tablet 40 mg PO DAILY 08/26/23 08/26/23 History sennosides 8.6 mg-docusate sodium 1 tab-cap PO QDL PRN Constipation 08/26/23 08/26/23 History 50 mg tablet (Senokot-S) sodium phosphates 19 gram-7 118 ml WA DAILY PRN Constipation 08/26/23 08/26/23 History gram/118 mL enema (Fleet Enema) tizanidine 2 mg tablet 2 mg PO TID PRN MUSCLE SPASMS 08/26/23 08/26/23 History tramadol 50 mg tablet 50 mg PO Q6H PRN Pain (Scale Score 08/26/23 08/26/23 History 4-6) tramadol 50 mg tablet 100 mg PO Q6H PRN Pain (Scale 08/26/23 08/26/23 History Score 7-10) umeclidinium 62.5 mcg/actuation 1 inh inhalation DAILY 08/26/23 08/26/23 History blister powder for inhalation (Incruse Ellipta) zinc sulfate 50 mg zinc (220 mg) 50 mg PO DAILY 08/26/23 08/26/23 History capsule Patient History Medical History (Updated 09/07/23 @ 22:50 by Jacqui Faulkner DNP) Abnormal CT scan, chest CKD (chronic kidney disease), stage IV Acute metabolic encephalopathy Severe protein-calorie malnutrition COPD (chronic obstructive pulmonary disease) Polymyalgia rheumatica Stress-induced cardiomyopathy [place] Echo 08/09/23 Resolved [place] echo 08/17/23 SHEBA (acute kidney injury) Alcohol abuse Paroxysmal A-fib Aspiration pneumonia Social History Smoking Status: Former smoker Second Hand Exposure: No; Do You Dip or Chew Tobacco: No; Tobacco Cessation Education Requested by Patient: No Hx Alcohol Use: Yes Alcohol type: beer and hard liquor Hx Substance Use: No Preferred Language: Hungarian Communication Ability: Impaired De Alcholizer Required: No Beliefs That Will Affect Care: None Current Living Situation: Alone Current Living Situation Comment: Lives alone at [facility], [facility] Other Information That Helps Us Care for You: No Feels Safe at Home: Hesitant to Answer Safety Concerns: Feels Safe At This Time Assistive Devices: Cane Review of Systems Review of Systems: Unobtainable due to cognitive status Physical Exam Physical Exam: +AMS with lethargy noted cachectic and frail elderly male lying in bed bitemp wasting pupils reactive but sluggish appears chronically critically ill resp effort increased with diminished breath sounds right more than left, this is a limited anterior exam tachy s1s2 abd distended, angela noted, +JUSTINA drain lethargic and confused, unable to follow commands, delirium screen ++ no obvious facia droop noted strength diminished/generalized weakness skin pale, clammy Results & Data Vital Signs (Past 12 Hours) Vital Signs Temp Pulse Pulse Resp BP BP Pulse Ox 09/07/23 11:49 36.6 C 75 18 181/92 H 94 09/07/23 11:27 09/07/23 08:24 103 H 09/07/23 07:50 36.5 C 98 H 19 185/98 H 94 09/07/23 03:41 36.8 C 96 H 18 185/95 H 92 O2 Del Method O2 Flow Rate 09/07/23 11:49 Nasal Cannula 3.0 09/07/23 11:27 Nasal Cannula 3 09/07/23 08:24 09/07/23 07:50 Nasal Cannula 3.0 09/07/23 03:41 Oxymask 2 Laboratory Results data reviewed Diagnostic Findings data reviewed PG Care Time/CCT Total # of Minutes Spent Total Time Spent: 65 Total Time Spent with Patient: Total time spent is greater than 50% in coordination of care (as documented) at patient's floor/unit and/or counseling patient: I spent 65 minutes overall addressing this case: 20 min in medical data review/discussion with referring provider(s) and/or preparation for the visit 20 min in direct interaction with the patient/exam 00 min in Advance Care Planning/Goals of Care discussions as detailed above in note (must be >16min) 15 min in subsequent review and synthesis of assessment and plan 10 min communicating with other providers regarding the cornelio tovar's case: [place] [address] IN/OBS CONSULT LVL 4,60M Patient Type New History Comprehensive Exam Comprehensive Medical Decision Making High Complexity Diagnoses Dyspnea and respiratory abnormalities R06.00; R06.89 Weakness generalized R53.1 Delirium R41.0 Altered mental status type: delirium Palliative care by specialist Z51.5 Intra-abdominal abscess K65.1 Perforated viscus R19.8 Acute diastolic CHF (congestive heart failure) I50.31 Acute respiratory failure with hypoxia and hypercapnia J96.01; J96.02
[2023-09-07] MEDS: METOPROLOL TARTRATE 1 MG/ML VIAL IV SCH ×2 (15:26→17:12)
--- NOTE | 2023-09-07 15:30 | Hospitalist Progress Note ---
Date of Service September 07, 2023 Assessment & Plan (1) Acute respiratory failure with hypoxia and hypercapnia: Plan: Patient has had varying degrees of respiratory failure since time of admission. Several nights ago he had suspected aspiration with worsening pneumonia. He required diuresis several days ago as well. Today he had worsening mental status likely due to his worsening respiratory acidosis. CXR with ongoing pulmonary edema/effusions as well as ongoing pneumonia. The latter appears radiographically worse today. This is despite broad-spectrum IV abx in the form zosyn. Plan - * lasix IV now, then repeat about 6 hours later * change zosyn to meropenem (recent pseudomonas that grew from his intra- abdominal culture showed high ARISTIDES for zosyn; very low ARISTIDES for meropenem) * check MRSA swab; if + add zyvox * check COVID/flu/RSV swab * BIPAP with serial VBGs to ensure improvement * consider u/s of his effusions and consult pulmonary for intervention (thoracentesis), if needed (2) Acute diastolic CHF (congestive heart failure): Plan: Ongoing. Stop all IV fluids including PPN. Lasix 20mg x 1 now, then 20mg later tonight. Follow response. May need daily IV lasix for several days. (3) Pneumonia: Plan: has completed 10+ days of broad-spectrum IV antibiotics during this stay (mainly zosyn) zosyn has been used for both his intra-abdominal abscess/perforation/peritonitis as well his pneumonia despite the above his WBC count has worsened and his respiratory status has declined change zosyn to meropenem check COVID/flu/RSV swab check MRSA swab; add appropriate coverage if needed change PO prednisone to hydrocortisone IV speech therapy assistance appreciated; once more stable pursue VFSS (4) Perforated viscus: Plan: s/p ex lap 08/31/[address] Sorenson perforation was from the cecum pathology - no malignancy etiology?? did he have smoldering diverticulitis of the cecum? other pathology? appreciate Dr Sorenson's consult and ongoing assistance NPO due to swallowing issues moving bowels angela intact/incision intact stable from surgical standpoint (5) Intra-abdominal abscess: Plan: as seen on ex lap 08/31/23 abscess and perforation led to peritonitis and severe sepsis intra-op culture from ascites fluid - pseudomonas + bacteroides has been on zosyn ever since the surgery see above Re: antibiotics appreciate surgical assistance (6) SBO (small bowel obstruction): Plan: had such early July upon presentation to [facility] in [facility] records suggest the transition point was in the terminal ileum he was treated conservatively with NG tube, etc and did not require surgery records state his last colonoscopy was 2018 which showed diverticulosis + hemorrhoids but no polyps EGD at the same time showed hiatal hernia (7) Abnormal CT scan, chest: Plan: b/l pneumonia. nodules also present - concerning for possible underlying malignancy. Appreciate pulm consultation and recs. Cont abx - see above (8) Acute metabolic encephalopathy: Plan: multifactorial - hospital psychosis, sepsis, pneumonia, acidosis, hypercapnia, etc. can't rule out nutritional deficiencies (Wernicke's, etc). Treat resp acidosis with BIPAP. Hold TCA, sedatives, muscle relaxers, etc. He takes chronic narcotics outside the hospital but caution with narcotics in light of tenuous respiratory status. B12 wnl. B1 level was high - likely due to recent thiamine supplementation. (9) Sepsis: Plan: 2nd to pneumonia. 2nd to pelvic abscess and peritonitis. ongoing. see above re: antibiotics. (10) SHEBA (acute kidney injury): Plan: Peak Cr 2 Now <1 Multifactorial causes BMP in am. (11) Elevated troponin: Plan: Peak HS trop 79. Likely myocardial demand ischemia. Doubt ACS. (12) COPD (chronic obstructive pulmonary disease): Plan: Cont steroids. Cont nebs. Cont inhalers. (13) Alcohol abuse: Plan: Long standing history of such. Went thru withdrawal at [facility]. Had etoh withdrawal seizures by report at the outside hospital. last etoh beverage was 30+ days ago. (14) Paroxysmal A-fib: Plan: Had such while at [facility]. Had been on amiodarone to maintain NSR - hold. Holding Eliquis 5mg BID for now due to NPO status. (15) Polymyalgia rheumatica: Plan: Sees rheum for such. On chronic steroids - basal dose uncertain. 7.5mg each day? Change prednisone to hydrocortisone - 20mg IV TID for now, increase if necessary. (16) Severe protein-calorie malnutrition: Plan: Patient cachectic, etc. Prior attending physician ordered PPN but place on hold due to volume overload. (17) Rheumatoid arthritis: Plan: On prednisone + plaquenil chronically for such. No evidence of RA flare. Both meds on hold. (18) Unilateral vocal cord paralysis: Plan: Due to intubation/ventilation years ago at [facility] following a logging accident. (19) Anemia: Plan: H/H acceptable. B12, folate, Fe studies wnl. Likely anemia of chronic disease from RA, bone marrow suppression from etoh, blood draws, etc. (20) DVT prophylaxis: Plan: heparin 5000 BID Plan multiple visits to pt's bedside today daughters and pt's sister updated extensively critical care time today 60 minutes (management of acute hypoxic/hypercapnic resp failure, etc) I confirmed with the pt's 2 daughters that Mr Porras remains DNR/DNI plan of care discussed with night physician Admission and Anticipated Discharge Date Admission Date: August 26, 2023 Subjective per staff patient was restless most of last night today has been sleepy/lethargic with only brief periods of being awake during the visit the pt's 2 daughters & his sister were present at bedside he was lethargic but was able to answer basic questions he complained of dyspnea he complained of lower abdominal pain it was very difficult to understand him due to chronic hoarse voice (from vocal cord paralysis) and weakness staff report he has had multiple stools today BPs have been elevated throughout the day Review of Systems Review of Systems: Unobtainable due to cognitive status could not obtain complete ROS due to lethargy Physical Exam Physical Exam: gen - tachypneic, lethargic, confused, very difficult to understand his speech; looks very ill; cachectic neck - no obvious JVD mouth - MMM heart - tachy, s1 s2, no murmur lungs - decreased BS both bases (R>L), crackles b/l, tachypnea, mild retractions abd - mildly distended, BS+, angela intact lower abdominal wall (midline); JUSTINA drain in place - serosanguinous fluid, not purulent, mildly tender lower abdominal wall ext - very cool to touch, pulses 1+ b/l, cap refill about 3 sec b/l feet neuro - positive babinski on right, negative on left; foot drop on right; moves all 4 limbs equally; no obvious facial droop Results & Data Results & Data Vital Signs (Past 12 Hours) Vital Signs Temp Pulse Pulse Resp BP BP Pulse Ox 09/07/23 12:33 74 174/90 H 09/07/23 11:49 36.6 C 75 18 181/92 H 94 09/07/23 11:27 09/07/23 08:24 103 H 09/07/23 07:50 36.5 C 98 H 19 185/98 H 94 09/07/23 03:41 36.8 C 96 H 18 185/95 H 92 O2 Del Method O2 Flow Rate 09/07/23 12:33 09/07/23 11:49 Nasal Cannula 3.0 09/07/23 11:27 Nasal Cannula 3 09/07/23 08:24 09/07/23 07:50 Nasal Cannula 3.0 09/07/23 03:41 Oxymask 2 Laboratory Results Laboratory Results - last 24 hr 09/07/23 09/07/23 09/07/23 01:16 06:03 11:45 WBC RBC Hgb Hct MCV MCH MCHC RDW Std Deviation RDW Coeff of Jesse Plt Count MPV Immature Gran % (Auto) Neut % (Auto) Lymph % (Auto) [place] % (Auto) Eos % (Auto) Baso % (Auto) Neut # (Auto) Lymph # (Auto) [place] # (Auto) Eos # (Auto) Baso # (Auto) Immature Gran # (Auto) VBG pH VBG pCO2 VBG pO2 VBG HCO3 VBG O2 Saturation VBG Base Excess Sodium 139 Potassium 4.0 Chloride 107 Carbon Dioxide 25 Anion Gap 7 BUN 19 Creatinine 0.81 Est Cr Clr Drug Dosing 77.1 Est GFR ( Amer) 102.9 Est GFR (Non-Af Amer) 88.8 BUN/Creatinine Ratio 23.5 H Glucose 146 H POC Glucose 126 H 141 H Lactate Calcium 8.1 L Phosphorus 2.3 L Magnesium 1.8 Total Bilirubin Direct Bilirubin AST ALT Alkaline Phosphatase Ammonia Total Protein Albumin Procalcitonin TSH Free T4 09/07/23 09/07/23 09/07/23 15:55 16:13 17:38 WBC 16.79 H RBC 3.34 L Hgb 10.2 L Hct 32.0 L MCV 95.8 MCH 30.5 MCHC 31.9 L RDW Std Deviation 47.8 H RDW Coeff of Jesse 13.5 Plt Count 224 D MPV 9.5 Immature Gran % (Auto) 1.7 Neut % (Auto) 92.9 Lymph % (Auto) 2.8 [place] % (Auto) 2.4 Eos % (Auto) 0.1 Baso % (Auto) 0.1 Neut # (Auto) 15.59 H Lymph # (Auto) 0.47 L [place] # (Auto) 0.41 Eos # (Auto) 0.01 Baso # (Auto) 0.02 Immature Gran # (Auto) 0.29 H VBG pH 7.23 L 7.25 L VBG pCO2 71 H 69 H VBG pO2 30 30 VBG HCO3 30 30 VBG O2 Saturation < 60.0 < 60.0 VBG Base Excess 0.2 1.2 Sodium Potassium Chloride Carbon Dioxide Anion Gap BUN Creatinine Est Cr Clr Drug Dosing Est GFR ( Amer) Est GFR (Non-Af Amer) BUN/Creatinine Ratio Glucose POC Glucose Lactate 1.5 Calcium Phosphorus Magnesium Total Bilirubin 0.4 Direct Bilirubin 0.1 AST 18 ALT 21 Alkaline Phosphatase 171 H Ammonia 22.0 Total Protein 5.2 L Albumin 2.6 L Procalcitonin 0.76 H TSH 6.604 H Free T4 0.83 Diagnostic Findings Chest X-Ray 09/07/23 15:27 XR chest 1V portable HISTORY: Shortness of breath. b/l pneumonia, CHF, tachypnea COMPARISON: Chest 09/05/2023. FINDINGS: No pneumothorax. The heart remains enlarged. There are low lung volumes. The loculated right lateral pleural fluid is now seen layering within the right lung base. Trace left pleural effusion persists. Patchy mid to lower lung zone airspace opacities have progressed on the right. This could be due to the pleural effusion. Mild congestive change persist. Emphysema again noted. There are degenerative changes within the shoulders. Chronic deformity an acute cortical plates again noted within the ribs. IMPRESSION: 1. The loculated right lateral pleural fluid on the prior study is now seen layering within the right lung base. A trace left pleural effusion persists. 2. Cardiomegaly and mild congestive change again noted. 3. Patchy mid to lower lung zone airspace opacities have progressed on the right. ACT 112: Negative or not required by law. Electronically signed by: Jamie Blanchard M.D. 09/07/2023 4:01 PM PG Care Time/CCT Total # of Minutes Spent Total Time Spent with Patient: Total time spent is greater than 50% in coordination of care (as documented) at patient's floor/unit and/or counseling patient: Critical Care Time: Yes Total Critical Care Time: 60 Coding Level of Care Code None Diagnoses Acute respiratory failure with hypoxia and hypercapnia J96.01; J96.02 Acute diastolic CHF (congestive heart failure) I50.31 Pneumonia J18.9 Laterality: left Lung location: unspecified part of lung Pneumonia type: due to unspecified organism Perforated viscus R19.8 Intra-abdominal abscess K65.1 SBO (small bowel obstruction) K56.[address] scan, chest R93.89 Acute metabolic encephalopathy G93.41 Sepsis A41.9 Acute respiratory failure type: with hypoxia Sepsis acute organ dysfunction status: with acute organ dysfunction Sepsis type: sepsis due to unspecified organism Severe sepsis shock status: unspecified SHEBA (acute kidney injury) N17.9 Elevated troponin R79.89 COPD (chronic obstructive pulmonary disease) J44.9 Alcohol abuse F10.10 Paroxysmal A-fib I48.0 Polymyalgia rheumatica M35.3 Severe protein-calorie malnutrition E43 Rheumatoid arthritis M06.9 Unilateral vocal cord paralysis J38.01 Anemia D64.9 DVT prophylaxis Z29.9 Additional Codes Critical Care Time - Critical Care Time: Yes ([id number]) (3) Pneumonia Laterality: left Lung location: unspecified part of lung Pneumonia type: due to unspecified organism Qualified Code(s): J18.9 - Pneumonia, unspecified organism (9) Sepsis Acute respiratory failure type: with hypoxia Sepsis acute organ dysfunction status: with acute organ dysfunction Sepsis type: sepsis due to unspecified organism Severe sepsis shock status: unspecified
[2023-09-07] MEDS ORDERED: PERIPHERAL TPN IV SCH (16:00)
[2023-09-07] MEDS ORDERED: [UNRECOGNIZED DRUG - OTHER] IV SCH (16:00)
[2023-09-07] MEDS ORDERED: CLINOLIPID 20% IV FAT EMULSION 250 ML IV SCH (16:00)
--- NOTE | 2023-09-07 16:03 | XRay Report ---
XR chest 1V portable HISTORY: Shortness of breath. b/l pneumonia, CHF, tachypnea COMPARISON: Chest 09/05/2023. FINDINGS: No pneumothorax. The heart remains enlarged. There are low lung volumes. The loculated righ t lateral pleural fluid is now seen layering within the right lung base. Trace left pleural effusion persists. Patchy mid to lower lung zone airspace opacities have progressed on the right. This could b e due to the pleural effusion. Mild congestive change persist. Emphysema again noted. There are degen erative changes within the shoulders. Chronic deformity an acute cortical plates again noted within t he ribs. IMPRESSION: 1. The loculated right lateral pleural fluid on the prior study is now seen layering within the right lung base. A trace left pleural effusion persists. 2. Cardiomegaly and mild congestive change again noted. 3. Patchy mid to lower lung zone airspace opacities have progressed on the right. ACT 112: Negative or not required by law. Electronically signed by: Jamie Blanchard M.D. 09/07/2023 4:01 PM
[2023-09-07 16:10] LABS: Base Excess VBG 0.2 mEq/L; HCO3 VBG 30 mmol/L; Oxygen Saturation VBG < 60.0 %; PCO2 VBG 71 mmHg (38-50); PO2 VBG 30 mmHg; pH VBG 7.23 (7.36-7.41)
[2023-09-07] MEDS ORDERED: FUROSEMIDE INJ 20 MG/2 ML VIAL IV STA (16:18)
[2023-09-07] MEDS ORDERED: FUROSEMIDE INJ 20 MG/2 ML VIAL IV ONE ×2 (16:21→22:00)
[2023-09-07 16:30] LABS: Hemoglobin 10.2 g/dl (14.0-18.0); Mean Corpuscular Hemoglobin 30.5 pg (25.0-34.0); Mean Corpuscular Hgb Conc 31.9 g/dL (32.0-36.0); Mean Corpuscular Volume 95.8 fL (80.0-100.0); Mean Platelet Volume 9.5 fL (9.4-12.4); Platelet Count 224 K/uL (130-400); RDW Coefficient of Variation 13.5 % (11.5-14.5); RDW Standard Deviation 47.8 fL (36.4-46.3); Red Blood Count 3.34 M/uL (4.70-6.10); White Blood Count 16.79 K/ul (4.8-10.8)
--- NOTE | 2023-09-07 16:42 | Surgery Progress Note ---
Date of Service September 07, 2023 Assessment & Plan (1) Perforated viscus: Plan: F/U S/P Exploratory Laparotomy and Partial Resection of Cecum with Drainage of Pelvic Abscess, POD 3 slow making progress, waiting for pass gas, speech consult for evaluation aspiration. 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 09/06/2023 7:45 AM F/U S/P Exploratory Laparotomy and Partial Resection of Cecum with Drainage of Pelvic Abscess, POD 6 slow making progress, waiting for pass gas, speech consult for evaluation aspiration. pt was aspiration last night. continue iv antibiotic Dulcolax 10 mg pr pt may benefits from PPN, medicine team please order PPN, PICC line. Thanks. will F/U. 09/07/2023 4:47 PM F/U S/P Exploratory Laparotomy and Partial Resection of Cecum with Drainage of Pelvic Abscess, POD 7 slow making progress, passed gas and BM. , speech consult for evaluation aspiration. continue iv antibiotic started PPN, repeat labs in morning. will F/U. Admission and Anticipated Discharge Date Admission Date: August 26, 2023 Supervising Physician Co-Signing Physician Notes I saw and examined this patient this am. He is more awake at this time of the morning compared to yesterday am. His daughter is at the bedside confirming his sleep patterns are off at home and even worse here at this time noting he went to sleep at 5 am one morning then was awakened/back up at 9am. He is lethargic but able to respond to me. His O2 saturation requirement is decreased today to 4L face mask and he continues to Sat at 100%. He remains afebrile. He is denying abdominal pain, nausea, and believes he passed a small amount of flatus at some point yesterday. I would keep him NPO for today until we can be sure he is having more consistent bowel function and is generally well awake. Keep blinds open, lights on in the room during the day time. Discussed a potential mild, non-sedating sleep aid at bedtime tonight like Melatonin. OOB to chair today. Encourage incentive spirometer. PT eval and treat Dr. Sorenson will return tomorrow for continued surgical follow up and assessment. Subjective pt developed respiratory distress, pt is on CPAP. pt passed some BM, no abdominal pain, no fever, JUSTINA minimal. pt's family members at bedside, CXR- IMPRESSION: 1. The loculated right lateral pleural fluid on the prior study is now seen layering within the right lung base. A trace left pleural effusion persists. 2. Cardiomegaly and mild congestive change again noted. 3. Patchy mid to lower lung zone airspace opacities have progressed on the right. Review of Systems Constitutional: no fever and no chills Eyes: as per Subjective / HPI Respiratory: + dyspnea; no cough Cardiovascular: no chest pain Gastrointestinal: + abdominal pain; no nausea and no vomit ing Genitourinary: no dysuria Neurologic: + generalized weakness Psychiatric: as per Subjective / HPI Endocrine: as per Subjective / HPI Hematologic / Lymphatic: Anemia Physical Exam Eyes: PERRL, conjunctivae normal, anicteric sclerae Neck: trachea midline, no thyromegaly Respiratory: Auscultation: lungs clear to auscultation bilaterally Cardiovascular: Rate/Rhythm: + irregularly irregular Gastrointestinal (Abdomen): soft, no tenderness, no distend, BS +, JUSTINA intact. Neurologic: PERRL, EOMI, accommodation nl, no face palsy, no dysarthria Results & Data Vital Signs (Past 12 Hours) Vital Signs Temp Pulse Pulse Resp BP BP BP 09/07/23 16:21 78 23 09/07/23 15:26 91 H 170/89 H 09/07/23 12:33 74 174/90 H 09/07/23 11:49 36.6 C 75 18 181/92 H 09/07/23 11:27 09/07/23 08:24 103 H 09/07/23 07:50 36.5 C 98 H 19 185/98 H Pulse Ox O2 Del Method O2 Flow Rate FiO2 09/07/23 16:21 97 50 09/07/23 15:26 09/07/23 12:33 09/07/23 11:49 94 Nasal Cannula 3.0 09/07/23 11:27 Nasal Cannula 3 09/07/23 08:24 09/07/23 07:50 94 Nasal Cannula 3.0 Laboratory Results Abnormal lab results 09/07/23 09/07/23 09/07/23 Range/Units 01:16 06:03 11:45 WBC (4.8-10.8) K/ul RBC (4.70-6.10) M/uL Hgb (14.0-18.0) g/dl Hct (42.0-52.0) % MCHC (32.0-36.0) g/dL RDW Std Deviation (36.4-46.3) fL VBG pH (7.36-7.41) VBG pCO2 (38-50) mmHg BUN/Creatinine Ratio 23.5 H (10-20) Glucose 146 H (70-99(Fasting)) mg/dl POC Glucose 126 H 141 H (70-99) mg/dl Calcium 8.1 L (8.6-10.3) mg/dl Phosphorus 2.3 L (2.5-4.9) mg/dl Alkaline Phosphatase (34-104) U/L Total Protein (6.0-8.3) gm/dl Albumin (3.4-5.0) gm/dl 09/07/23 09/07/23 Range/Units 15:55 16:13 WBC 16.79 H (4.8-10.8) K/ul RBC 3.34 L (4.70-6.10) M/uL Hgb 10.2 L (14.0-18.0) g/dl Hct 32.0 L (42.0-52.0) % MCHC 31.9 L (32.0-36.0) g/dL RDW Std Deviation 47.8 H (36.4-46.3) fL VBG pH 7.23 L (7.36-7.41) VBG pCO2 71 H (38-50) mmHg BUN/Creatinine Ratio (10-20) Glucose (70-99(Fasting)) mg/dl POC Glucose (70-99) mg/dl Calcium (8.6-10.3) mg/dl Phosphorus (2.5-4.9) mg/dl Alkaline Phosphatase 171 H (34-104) U/L Total Protein 5.2 L (6.0-8.3) gm/dl Albumin 2.6 L (3.4-5.0) gm/dl Diagnostic Findings IMPRESSION: CXR 09/07/2023 1. The loculated right lateral pleural fluid on the prior study is now seen layering within the right lung base. A trace left pleural effusion persists. 2. Cardiomegaly and mild congestive change again noted. 3. Patchy mid to lower lung zone airspace opacities have progressed on the right.
[2023-09-07 16:45] LABS: Albumin Level 2.6 gm/dl (3.4-5.0); Bilirubin Direct 0.1 mg/dl (0-0.2); Bilirubin,Total 0.4 mg/dl (0.2-1.0); Total Protein 5.2 gm/dl (6.0-8.3)
[2023-09-07 17:01] LABS: Thyroid Stimulating Hormone 6.604 uIu/ml (0.300-4.500)
[2023-09-07 17:31] LABS: Basophils # (auto) 0.02 K/uL (0.00-0.20); Basophils % (auto) 0.1 %; Eosinophils # (auto) 0.01 K/uL (0.00-0.50); Eosinophils % (auto) 0.1 %; Immature Granulocytes # (auto) 0.29 K/uL (0.01-0.20); Immature Granulocytes % (auto) 1.7 %; Lymphocytes # (auto) 0.47 K/uL (1.20-3.40); Lymphocytes % (auto) 2.8 %; Monocytes # (auto) 0.41 K/uL (0.11-0.59); Monocytes % (auto) 2.4 %; Neutrophils # (auto) 15.59 K/uL (1.40-6.50); Neutrophils % (auto) 92.9 %
[2023-09-07 17:36] LABS: T4 Free Thyroxine 0.83 ng/dl (0.61-1.60)
[2023-09-07 17:47] LABS: Base Excess VBG 1.2 mEq/L; HCO3 VBG 30 mmol/L; Oxygen Saturation VBG < 60.0 %; PCO2 VBG 69 mmHg (38-50); PO2 VBG 30 mmHg; pH VBG 7.25 (7.36-7.41)
[2023-09-07] MEDS ORDERED: ACETAMINOPHEN 1,000 MG/100 ML VIAL IV STA (18:43)
[2023-09-07 20:46] LABS: Base Excess VBG 2.4 mEq/L; HCO3 VBG 30 mmol/L; Oxygen Saturation VBG 74.3 %; PCO2 VBG 60 mmHg (38-50); PO2 VBG 47 mmHg; pH VBG 7.31 (7.36-7.41)
[2023-09-07] MEDS ORDERED: STOP CLINOLIPID SCH (22:00)
[2023-09-07] MEDS: MEROPENEM 500 MG in SYRINGE 0 ML IV SCH (22:30)
[2023-09-08] MEDS ORDERED: HALOPERIDOL LACTATE 5 MG/ML 1 ML VIAL IM STA ×2 (00:01→05:00)
[2023-09-08] MEDS: DOCUSATE SODIUM 100 MG CAP PO SCH ×3 (00:12→21:19)
[2023-09-08] MEDS: THIAMINE HCL 100 MG TAB PO SCH ×4 (00:13→21:19)
[2023-09-08] MEDS: METOPROLOL TARTRATE 25 MG TAB PO SCH ×4 (00:13→21:17)
[2023-09-08] MEDS ORDERED: FUROSEMIDE INJ 20 MG/2 ML VIAL IV ONE ×3 (02:30→15:49)
[2023-09-08] MEDS: METOPROLOL TARTRATE 1 MG/ML VIAL IV SCH ×4 (02:40→17:40)
[2023-09-08] MEDS: MEROPENEM 500 MG in SYRINGE 0 ML IV SCH ×3 (02:58→12:08)
[2023-09-08] MEDS: HYDROCORTISONE SOD 20 MG in SYRINGE 0 ML IV SCH ×3 (03:30→16:13)
[2023-09-08] MEDS ORDERED: Nursing to Pharmacy Communication SCH (03:45)
[2023-09-08 05:58] LABS: Base Excess VBG 4.2 mEq/L; HCO3 VBG 31 mmol/L; Oxygen Saturation VBG 68.6 %; PCO2 VBG 55 mmHg (38-50); PO2 VBG 42 mmHg; pH VBG 7.36 (7.36-7.41)
[2023-09-08 06:04] LABS: Hematocrit (blood only) 28.7 % (42.0-52.0); Hemoglobin 9.3 g/dl (14.0-18.0); Mean Corpuscular Hemoglobin 30.6 pg (25.0-34.0); Mean Corpuscular Hgb Conc 32.4 g/dL (32.0-36.0); Mean Corpuscular Volume 94.4 fL (80.0-100.0); Mean Platelet Volume 9.8 fL (9.4-12.4); Platelet Count 169 K/uL (130-400); RDW Coefficient of Variation 13.6 % (11.5-14.5); RDW Standard Deviation 46.8 fL (36.4-46.3); Red Blood Count 3.04 M/uL (4.70-6.10); White Blood Count 12.33 K/ul (4.8-10.8)
[2023-09-08 06:20] LABS: BUN Creatinine Ratio 23.4 (10-20); Calcium 7.9 mg/dl (8.6-10.3); Creatinine Clr Calc Pharmacy 81.1 ml/min; Est GFR (African American) 105.1 ml/min; Est GFR (Non-African American) 90.7 ml/min; Magnesium 1.5 mg/dl (1.7-2.4); Potassium 3.3 mmol/L (3.5-5.1)
[2023-09-08] MEDS: POTASSIUM CHLORIDE / WTR 10 MEQ/100 ML PLCT IV SCH ×2 (08:22→10:09)
[2023-09-08] MEDS: MAGNESIUM SULFATE / D5W 1 GM/100 ML BAG IV SCH ×2 (08:22→10:14)
[2023-09-08] MEDS: PANTOprazole 40 MG TAB PO SCH (08:23)
[2023-09-08] MEDS: UMECLIDINIUM BROMIDE 62.5MCG/BLISTER 7 PUFFS/INHALER INH SCH (08:23)
[2023-09-08] MEDS: HEPARIN SOD 5,000 UNIT/0.5 ML VIAL SQ SCH ×2 (08:23→21:13)
[2023-09-08] MEDS: ZINC SULFATE 220 MG CAPSULE PO SCH (08:23)
--- NOTE | 2023-09-08 13:01 | XRay Report ---
XR chest 1V portable CLINICAL HISTORY: Respiratory failure. COMPARISON STUDY: Chest radiograph September 07, 2023. Chest CT August 31, 2023. FINDINGS: Multiple rib internal fixations are incidentally noted. Patient is rotated. Cardiac mediast inal silhouette is stable. There is no pneumothorax. Small to moderate right pleural effusion has sli ghtly decreased. There is a small left pleural effusion. Interstitial thickening and bilateral opacit ies have slightly improved. IMPRESSION: 1. Mild improvement in pulmonary edema. 2. Slight interval decrease in airspace opacities which could reflect alveolar pulmonary edema or sup erimposed pneumonia. 3. Small to moderate right and small left pleural effusions. ACT 112: Negative or not required by law. Electronically signed by: Vic Eason M.D. 09/08/2023 1:00 PM
--- NOTE | 2023-09-08 15:25 | Surgery Progress Note ---
Date of Service September 08, 2023 Assessment & Plan (1) Perforated viscus: Plan: F/U S/P Exploratory Laparotomy and Partial Resection of Cecum with Drainage of Pelvic Abscess, POD 3 slow making progress, waiting for pass gas, speech consult for evaluation aspiration. continue iv antibiotic Dulcolax 10 mg pr applications chemist surgeon cover this weekend, thanks. 09/06/2023 7:45 AM F/U S/P Exploratory Laparotomy and Partial Resection of Cecum with Drainage of Pelvic Abscess, POD 6 slow making progress, waiting for pass gas, speech consult for evaluation aspiration. pt was aspiration last night. continue iv antibiotic Dulcolax 10 mg pr pt may benefits from PPN, medicine team please order PPN, PICC line. Thanks. will F/U. 09/07/2023 4:47 PM F/U S/P Exploratory Laparotomy and Partial Resection of Cecum with Drainage of Pelvic Abscess, POD 7 slow making progress, passed gas and BM. , speech consult for evaluation aspiration. continue iv antibiotic started PPN, repeat labs in morning. will F/U. 09/08/2023 3:31 PM F/U S/P Exploratory Laparotomy and Partial Resection of Cecum with Drainage of Pelvic Abscess, POD 8 doing better today, slow making progress, speech consult for evaluation aspiration. continue iv antibiotic started PPN, repeat labs in morning. will F/U. Admission and Anticipated Discharge Date Admission Date: August 26, 2023 Supervising Physician Co-Signing Physician Notes I saw and examined this patient this am. He is more awake at this time of the morning compared to yesterday am. His daughter is at the bedside confirming his sleep patterns are off at home and even worse here at this time noting he went to sleep at 5 am one morning then was awakened/back up at 9am. He is lethargic but able to respond to me. His O2 saturation requirement is decreased today to 4L face mask and he continues to Sat at 100%. He remains afebrile. He is denying abdominal pain, nausea, and believes he passed a small amount of flatus at some point yesterday. I would keep him NPO for today until we can be sure he is having more consistent bowel function and is generally well awake. Keep blinds open, lights on in the room during the day time. Discussed a potential mild, non-sedating sleep aid at bedtime tonight like Melatonin. OOB to chair today. Encourage incentive spirometer. PT eval and treat Dr. Sorenson will return tomorrow for continued surgical follow up and assessment. Subjective 09/08/2023 3:[address] Sorenson pt is doing better, pt is awake and alert, he answered correctly questions. no significant abdominal pain, no nausea, no vomiting, no fever. JUSTINA minimal clear color, WBC down to 12,000 from yesterday 16,000. pt's daughter at bedside. reviewed pathology report. today CXR- IMPRESSION: 1. Mild improvement in pulmonary edema. 2. Slight interval decrease in airspace opacities which could reflect alveolar pulmonary edema or superimposed pneumonia. 3. Small to moderate right and small left pleural effusions. Review of Systems Constitutional: no fever and no chills Eyes: as per Subjective / HPI Respiratory: + dyspnea; no cough Cardiovascular: no chest pain Gastrointestinal: + abdominal pain; no nausea and no vomit ing Genitourinary: no dysuria Neurologic: + generalized weakness Psychiatric: as per Subjective / HPI Endocrine: as per Subjective / HPI Hematologic / Lymphatic: Anemia Physical Exam Eyes: PERRL, conjunctivae normal, anicteric sclerae Neck: trachea midline, no thyromegaly Respiratory: Auscultation: lungs clear to auscultation bilaterally Cardiovascular: Rate/Rhythm: + irregularly irregular Gastrointestinal (Abdomen): soft, no tenderness, no distend, BS +, JUSTINA intact, incision intact. no redness or drainage. Neurologic: patellar DTR's 2+ bilat, sensation intact and PERRL, EOMI, accommodation nl, no face palsy, no dysarthria Results & Data Vital Signs (Past 12 Hours) Vital Signs Temp Pulse Pulse Resp BP BP BP 09/08/23 15:17 36.2 C L 105 H 35 H 137/83 09/08/23 12:05 106 H 115/78 09/08/23 11:32 103 H 27 H 09/08/23 11:00 36.5 C 107 H 28 H 177/77 H 09/08/23 08:00 09/08/23 07:34 81 09/08/23 07:33 79 23 09/08/23 06:58 36.4 C L 104 H 27 H 146/77 H 09/08/23 05:44 90 158/86 H 09/08/23 05:42 90 33 H 158/86 H 09/08/23 03:30 72 127/78 Pulse Ox O2 Del Method O2 Flow Rate FiO2 09/08/23 15:17 100 Nasal Cannula 5 09/08/23 12:05 09/08/23 11:32 100 40 09/08/23 11:00 96 BiPAP 40 09/08/23 08:00 Nasal Cannula 4 09/08/23 07:34 09/08/23 07:33 96 40 09/08/23 06:58 97 BiPAP 09/08/23 05:44 09/08/23 05:42 89 L BiPAP 09/08/23 03:30 Laboratory Results Abnormal lab results 09/07/23 09/07/23 09/07/23 Range/Units 15:55 16:13 17:38 WBC 16.79 H (4.8-10.8) K/ul RBC 3.34 L (4.70-6.10) M/uL Hgb 10.2 L (14.0-18.0) g/dl Hct 32.0 L (42.0-52.0) % MCHC 31.9 L (32.0-36.0) g/dL RDW Std Deviation 47.8 H (36.4-46.3) fL Neut # (Auto) 15.59 H (1.40-6.50) K/uL Lymph # (Auto) 0.47 L (1.20-3.40) K/uL Immature Gran # (Auto) 0.29 H (0.01-0.20) K/uL VBG pH 7.23 L 7.25 L (7.36-7.41) VBG pCO2 71 H 69 H (38-50) mmHg Potassium (3.5-5.1) mmol/L BUN/Creatinine Ratio (10-20) Calcium (8.6-10.3) mg/dl Magnesium (1.7-2.4) mg/dl Alkaline Phosphatase 171 H (34-104) U/L Total Protein 5.2 L (6.0-8.3) gm/dl Albumin 2.6 L (3.4-5.0) gm/dl Procalcitonin 0.76 H (0-0.5) ng/ml TSH 6.604 H (0.300-4.500) uIu/ml 09/07/23 09/08/23 Range/Units 20:19 05:52 WBC 12.33 H (4.8-10.8) K/ul RBC 3.04 L (4.70-6.10) M/uL Hgb 9.3 L (14.0-18.0) g/dl Hct 28.7 L (42.0-52.0) % MCHC (32.0-36.0) g/dL RDW Std Deviation 46.8 H (36.4-46.3) fL Neut # (Auto) (1.40-6.50) K/uL Lymph # (Auto) (1.20-3.40) K/uL Immature Gran # (Auto) (0.01-0.20) K/uL VBG pH 7.31 L (7.36-7.41) VBG pCO2 60 H 55 H (38-50) mmHg Potassium 3.3 L (3.5-5.1) mmol/L BUN/Creatinine Ratio 23.4 H (10-20) Calcium 7.9 L (8.6-10.3) mg/dl Magnesium 1.5 L (1.7-2.4) mg/dl Alkaline Phosphatase (34-104) U/L Total Protein (6.0-8.3) gm/dl Albumin (3.4-5.0) gm/dl Procalcitonin (0-0.5) ng/ml TSH (0.300-4.500) uIu/ml Diagnostic Findings CXR 09/08/2023
[2023-09-08 16:00] LABS: Influenza A virus by PCR Negative (Neg); Influenza B virus by PCR Negative (Neg); RSV by PCR Negative (Neg); SARS CoV2 RNA(COVID-19) Ceph NEGATIVE (Negative)
[2023-09-08] MEDS: BACITRACIN OINT 14 GM TUBE EXT SCH (16:12)
[2023-09-08] MEDS: metroNIDAZOLE 500 MG/100 ML BAG IV SCH (21:13)
[2023-09-08] MEDS: OLANZapine ZYDIS 5 MG ORALLY DIS. TAB PO SCH (21:33)
[2023-09-08] MEDS: CEFEPIME 2,000 MG in SYRINGE 0 ML IV SCH (21:58)
[2023-09-08] MEDS ORDERED: OLANZapine 10 MG/2.1 ML SDV IM STA (23:05)
[2023-09-09] MEDS: HYDROCORTISONE SOD 20 MG in SYRINGE 0 ML IV SCH ×3 (00:03→16:45)
[2023-09-09] MEDS: BACITRACIN OINT 14 GM TUBE EXT SCH ×3 (00:03→16:45)
[2023-09-09] MEDS: METOPROLOL TARTRATE 1 MG/ML VIAL IV SCH ×4 (00:04→18:02)
[2023-09-09] MEDS: CEFEPIME 2,000 MG in SYRINGE 0 ML IV SCH ×3 (04:33→21:27)
[2023-09-09] MEDS: metroNIDAZOLE 500 MG/100 ML BAG IV SCH ×3 (04:34→20:24)
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
[2023-09-09 06:24] LABS: Hematocrit (blood only) 28.6 % (42.0-52.0); Hemoglobin 9.2 g/dl (14.0-18.0); Mean Corpuscular Hemoglobin 30.8 pg (25.0-34.0); Mean Corpuscular Hgb Conc 32.2 g/dL (32.0-36.0); Mean Corpuscular Volume 95.7 fL (80.0-100.0); Mean Platelet Volume 9.6 fL (9.4-12.4); Platelet Count 157 K/uL (130-400); RDW Coefficient of Variation 13.7 % (11.5-14.5); RDW Standard Deviation 47.2 fL (36.4-46.3); Red Blood Count 2.99 M/uL (4.70-6.10)
[2023-09-09 07:04] LABS: BUN Creatinine Ratio 23.9 (10-20); Creatinine Clr Calc Pharmacy 87.9 ml/min; Est GFR (African American) 108.6 ml/min; Est GFR (Non-African American) 93.7 ml/min; Magnesium 1.7 mg/dl (1.7-2.4); Potassium 3.3 mmol/L (3.5-5.1)
--- NOTE | 2023-09-09 07:50 | Surgery Progress Note ---
Date of Service September 09, 2023 Assessment & Plan (1) Perforated viscus: Plan: F/U S/P Exploratory Laparotomy and Partial Resection of Cecum with Drainage of Pelvic Abscess, POD 3 slow making progress, waiting for pass gas, speech consult for evaluation aspiration. continue iv antibiotic Dulcolax 10 mg pr completion engineer surgeon cover this weekend, thanks. 09/06/2023 7:45 AM F/U S/P Exploratory Laparotomy and Partial Resection of Cecum with Drainage of Pelvic Abscess, POD 6 slow making progress, waiting for pass gas, speech consult for evaluation aspiration. pt was aspiration last night. continue iv antibiotic Dulcolax 10 mg pr pt may benefits from PPN, medicine team please order PPN, PICC line. Thanks. will F/U. 09/07/2023 4:47 PM F/U S/P Exploratory Laparotomy and Partial Resection of Cecum with Drainage of Pelvic Abscess, POD 7 slow making progress, passed gas and BM. , speech consult for evaluation aspiration. continue iv antibiotic started PPN, repeat labs in morning. will F/U. 09/08/2023 3:31 PM F/U S/P Exploratory Laparotomy and Partial Resection of Cecum with Drainage of Pelvic Abscess, POD 8 doing better today, slow making progress, speech consult for evaluation aspiration. continue iv antibiotic started PPN, repeat labs in morning. will F/U. 09/09/2023 7:51 AM F/U S/P Exploratory Laparotomy and Partial Resection of Cecum with Drainage of Pelvic Abscess, POD 9 doing fine today, WBC normal low protein albumin pt will have a swallow evaluation study today. continue iv antibiotic repeat labs in morning. Admission and Anticipated Discharge Date Admission Date: August 26, 2023 Subjective 09/08/2023 3:[address] Sorenson pt is doing better, pt is awake and alert, he answered correctly questions. no significant abdominal pain, no nausea, no vomiting, no fever. JUSTINA minimal clear color, WBC down to 12,000 from yesterday 16,000. pt's daughter at bedside. reviewed pathology report. today CXR- IMPRESSION: 1. Mild improvement in pulmonary edema. 2. Slight interval decrease in airspace opacities which could reflect alveolar pulmonary edema or superimposed pneumonia. 3. Small to moderate right and small left pleural effusions. 09/09/2023 7:48 AM, Dr. Sorenson, pt is stable overnight, no fever, JUSTINA minimal. Physical Exam Eyes: PERRL, conjunctivae normal, anicteric sclerae Neck: trachea midline, no thyromegaly Respiratory: Auscultation: lungs clear to auscultation bilaterally Cardiovascular: Rate/Rhythm: + irregularly irregular Gastrointestinal (Abdomen): soft, no tenderness, no distend, BS +. JUSTINA intact, incision intact, no drainage. Neurologic: patellar DTR's 2+ bilat, sensation intact and PERRL, EOMI, accommodation nl, no face palsy, no dysarthria Results & Data Vital Signs (Past 12 Hours) Vital Signs Temp Pulse Pulse Resp BP BP Pulse Ox 09/09/23 05:46 89 144/86 H 09/09/23 03:00 36.5 C 87 27 H 134/82 100 09/09/23 02:27 84 24 94 09/09/23 01:00 36.5 C 105 H 19 139/81 96 09/09/23 00:55 99 H 134/82 09/09/23 00:04 89 121/72 09/08/23 23:00 83 09/08/23 23:00 36.5 C 89 27 H 121/72 99 09/08/23 21:43 107 H 23 94 O2 Del Method FiO2 09/09/23 05:46 09/09/23 03:00 BiPAP 09/09/23 02:27 40 09/09/23 01:00 Nasal Cannula 09/09/23 00:55 09/09/23 00:04 09/08/23 23:00 09/08/23 23:00 BiPAP 09/08/23 21:43 40 Laboratory Results Abnormal lab results 09/09/23 Range/Units 05:46 RBC 2.99 L (4.70-6.10) M/uL Hgb 9.2 L (14.0-18.0) g/dl Hct 28.6 L (42.0-52.0) % RDW Std Deviation 47.2 H (36.4-46.3) fL Potassium 3.3 L (3.5-5.1) mmol/L BUN/Creatinine Ratio 23.9 H (10-20) Calcium 8.0 L (8.6-10.3) mg/dl
[2023-09-09] MEDS ORDERED: MAGNESIUM SULFATE / D5W 1 GM/100 ML BAG IV ONE (08:19)
[2023-09-09] MEDS: DOCUSATE SODIUM 100 MG CAP PO SCH ×2 (09:04→20:54)
[2023-09-09] MEDS: HEPARIN SOD 5,000 UNIT/0.5 ML VIAL SQ SCH ×2 (09:04→20:32)
[2023-09-09] MEDS: METOPROLOL TARTRATE 25 MG TAB PO SCH ×2 (09:05→20:31)
[2023-09-09] MEDS: PANTOprazole 40 MG TAB PO SCH (09:05)
[2023-09-09] MEDS: UMECLIDINIUM BROMIDE 62.5MCG/BLISTER 7 PUFFS/INHALER INH SCH (09:06)
[2023-09-09] MEDS: ZINC SULFATE 220 MG CAPSULE PO SCH (09:06)
[2023-09-09] MEDS: THIAMINE HCL 100 MG TAB PO SCH ×2 (09:06→20:31)
[2023-09-09] MEDS: POTASSIUM CHLORIDE / WTR 10 MEQ/100 ML PLCT IV SCH ×3 (09:14→12:15)
[2023-09-09] MEDS ORDERED: MoRPHine SULFATE 2 MG/ML CARP IV PRN (11:44)
--- NOTE | 2023-09-09 12:13 | Fluoroscopy Report ---
FL video swallow HISTORY: assess for aspiration TECHNIQUE: Video fluoroscopic evaluation of swallowing was performed in the AP and lateral projection s by the speech pathology staff. The patient is fed nectar-thick and thin liquid barium, a barium coa silvestre wafer, and barium pudding. FLUOROSCOPY TIME: 2 minutes and 28 seconds. A cine loop submitted. Ka,r: 7.6 mGy COMPARISON STUDY: Video swallow 08/27/2023. FINDINGS: There is normal hyoid excursion and epiglottic deflection. Trace aspiration with serial swa llows of the thin liquid barium. No additional episodes of aspiration with the remaining barium consi stencies. IMPRESSION: 1. Trace aspiration with the thin liquid barium. 2. Please see the speech pathologist report for detailed findings and recommendations. ACT 112: Negative or not required by law. Electronically signed by: Jamie Blanchard M.D. 09/09/2023 12:12 PM
--- NOTE | 2023-09-09 20:05 | Hospitalist Progress Note ---
Date of Service September 09, 2023 Assessment & Plan (1) Acute respiratory failure with hypoxia and hypercapnia: Plan: Patient has had varying degrees of respiratory failure since time of admission. Combination of decompensated CHF + pneumonia. 09/07 - worsening resp acidosis - 2nd to the issues above. s/p BIPAP, change in antibiotic therapy, and diuresis. continues to improve stable on NC O2 volume status is much better Plan - * 1 dose of IV lasix 20mg x 1 today * cont IV abx - cefepime/flagyl * cont hydrocortisone IV 20mg TID; plan wean tomorrow * appreciate speech therapy assistance (2) Acute diastolic CHF (congestive heart failure): Plan: Suspect we are approaching euvolemia. Lasix 20mg x 1 today then re-eval tomorrow for ongoing lasix. (3) Pneumonia: Plan: has completed 10+ days of broad-spectrum IV antibiotics during this stay (mainly zosyn) zosyn has been used for both his intra-abdominal abscess/perforation/peritonitis as well his pneumonia despite the above his WBC count had worsened and his respiratory status had declined changed zosyn to meropenem; pharmacy recommended cefepime/flagyl in aditya of the meropenem checked COVID/flu/RSV swab --> negative checked MRSA swab --> negative continue hydrocortisone IV speech therapy assistance appreciated VFSS - passed current pneumonia may be from a gram negative rather than aspiration (4) Perforated viscus: Plan: s/p ex lap 08/31/[address] oSrenson perforation was from the cecum pathology - no malignancy etiology?? did he have smoldering diverticulitis of the cecum? other? appreciate Dr Sorenson's consult and ongoing assistance clear liquid diet today then advance as tolerated (5) Intra-abdominal abscess: Plan: as seen on ex lap 08/31/23 abscess and perforation led to peritonitis and severe sepsis intra-op culture from ascites fluid - pseudomonas + bacteroides has been on zosyn ever since the surgery see above Re: antibiotics appreciate surgical assistance (6) SBO (small bowel obstruction): Plan: had such early July upon presentation to [facility] in [facility]' records suggest the transition point was in the terminal ileum he was treated conservatively with NG tube, etc and did not require surgery records state his last colonoscopy was 2018 which showed diverticulosis + hemorrhoids but no polyps EGD at the same time showed hiatal hernia (7) Abnormal CT scan, chest: Plan: b/l pneumonia. nodules also present - concerning for possible underlying malignancy. Appreciate pulm consultation and recs. Cont abx - see above (8) Acute metabolic encephalopathy: Plan: improved. multifactorial - hospital psychosis, sepsis, pneumonia, acidosis, hypercapnia, etc. can't rule out nutritional deficiencies (Wernicke's, etc). s/p treatment of resp acidosis with BIPAP. Cont to hold TCA, sedatives, muscle relaxers, etc. He takes chronic narcotics outside the hospital but no signs/symptoms of withdrawal. B12 wnl. B1 level was high - likely due to recent thiamine supplementation. cont zyprexa 2.5mg PO HS scheduled add melatonin 3mg HS add zyprexa 2.5mg HS prn refractory agitation awaiting EKG to recheck QTc (9) Sepsis: Plan: 2nd to pneumonia. 2nd to pelvic abscess and peritonitis. see above re: antibiotics. (10) SHEBA (acute kidney injury): Plan: resolved Peak Cr 2 Now <1 Multifactorial causes BMP in am due to diuresis. (11) Elevated troponin: Plan: Peak HS trop 79. Likely myocardial demand ischemia. Doubt ACS. (12) COPD (chronic obstructive pulmonary disease): Plan: Cont steroids. Cont nebs. Cont inhalers. (13) Alcohol abuse: Plan: Long standing history of such. Went thru withdrawal at [facility]. Had etoh withdrawal seizures by report at the outside hospital. last etoh beverage was 30+ days ago. (14) Paroxysmal A-fib: Plan: Had such while at [facility]. Had been on amiodarone to maintain NSR - hold. can likely resume tomorrow albeit at lower dose of 200mg BID. Holding Eliquis 5mg BID for now due to NPO status - can likely resume tomorrow. (15) Polymyalgia rheumatica: Plan: Sees rheum for such. On chronic steroids - basal dose uncertain. 7.5mg each day? Changed prednisone to hydrocortisone - 20mg IV TID - no wean today but likely wean tomorrow. (16) Severe protein-calorie malnutrition: Plan: Patient cachectic, etc. Prior attending physician ordered PPN but place on hold due to volume overload. will allow PO diet today - passed swallow eval. (17) Rheumatoid arthritis: Plan: On prednisone + plaquenil chronically for such. No evidence of RA flare. Both meds on hold. Hydrocortisone TID. (18) Unilateral vocal cord paralysis: Plan: Due to intubation/ventilation years ago at [facility] following a logging accident. (19) Anemia: Plan: H/H remain acceptable. B12, folate, Fe studies wnl. Likely anemia of chronic disease from RA, bone marrow suppression from etoh, blood draws, etc. (20) DVT prophylaxis: Plan: heparin 5000 BID once Eliquis is resumed will stop heparin SC (21) Hypokalemia: Plan: replace repeat BMP am (22) Hypomagnesemia: Plan: replaced resolved Plan daughter updated at bedside again today making slow yet steady progress PT, OT when able we discussed a goal for tomorrow; OOB to chair tomorrow Admission and Anticipated Discharge Date Admission Date: August 26, 2023 Subjective overall had decent night took scheduled zyprexa PO last night, but ultimately required an IM dose as well did not use BIPAP last night this am he was able to complete video swallow overall did well; minimal aspiration with thin liquids started on clears at lunch-time - did well with such asked for more mild abdominal pain at times no vomiting denies dyspnea at rest during the visit his daughter & his brother were both present Review of Systems Review of Systems: gen - fatigue, weak cv - no chest pain pulm - no dyspnea at rest GI - no nausea - wants german out Physical Exam Physical Exam: gen - again looks much better in comparison to previous visits; awake, alert, following commands neck - no obvious JVD mouth - MMM; low, hoarse, raspy voice heart - mildly tachy, s1 s2, no murmur lungs - CTA b/l anteriorly; decreased BS bases -- but improved airation b/l; no wheezes; scant rales abd - distension resolved, BS+, angela intact lower abdominal wall (midline); JUSTINA drain in place - light serosanguinous fluid in the bulb; there is mild drainage coming from the JUSTINA insertion site, nontender abdomen to palpation ext - very cool to touch, pulses 1+ b/l, cap refill about 3 sec b/l feet (unchanged) neuropsych - awake/alert/oriented Results & Data Results & Data Vital Signs (Past 12 Hours) Vital Signs Temp Pulse Pulse Resp BP BP BP 09/09/23 19:55 36.5 C 81 18 112/68 09/09/23 18:35 83 09/09/23 18:02 87 122/77 09/09/23 17:30 102 H 09/09/23 15:22 36.3 C L 101 H 18 113/71 09/09/23 14:05 100 H 09/09/23 12:49 87 148/82 H 09/09/23 11:53 36.5 C 87 18 148/82 H 09/09/23 09:20 09/09/23 08:10 36.4 C L 87 25 H 161/92 H Pulse Ox O2 Del Method O2 Flow Rate 09/09/23 19:55 100 Nasal Cannula 2 09/09/23 18:35 09/09/23 18:02 09/09/23 17:30 09/09/23 15:22 100 Nasal Cannula 2 09/09/23 14:05 09/09/23 12:49 09/09/23 11:53 97 Nasal Cannula 2 09/09/23 09:20 Nasal Cannula 2 09/09/23 08:10 100 Nasal Cannula 4 Laboratory Results Laboratory Results - last 24 hr 09/09/23 09/09/23 09/09/23 05:46 06:29 11:59 WBC 9.90 RBC 2.99 L Hgb 9.2 L Hct 28.6 L MCV 95.7 MCH 30.8 MCHC 32.2 RDW Std Deviation 47.2 H RDW Coeff of Jesse 13.7 Plt Count 157 MPV 9.6 Sodium 144 Potassium 3.3 L Chloride 107 Carbon Dioxide 29 Anion Gap 8 BUN 17 Creatinine 0.71 Est Cr Clr Drug Dosing 87.9 Est GFR ( Amer) 108.6 Est GFR (Non-Af Amer) 93.7 BUN/Creatinine Ratio 23.9 H Glucose 83 POC Glucose 91 101 H Calcium 8.0 L Magnesium 1.7 PG Care Time/CCT Total # of Minutes Spent Total Time Spent with Patient: Total time spent is greater than 50% in coordination of care (as documented) at patient's floor/unit and/or counseling patient: Coding Level of Care Code 79168 SUB INP/OBS CARE 2/35MIN Diagnoses Acute respiratory failure with hypoxia and hypercapnia J96.01; J96.02 Acute diastolic CHF (congestive heart failure) I50.31 Pneumonia J18.9 Laterality: left Lung location: unspecified part of lung Pneumonia type: due to unspecified organism Perforated viscus R19.8 Intra-abdominal abscess K65.1 SBO (small bowel obstruction) K56.[address] scan, chest R93.89 Acute metabolic encephalopathy G93.41 Sepsis A41.9 Acute respiratory failure type: with hypoxia Sepsis acute organ dysfunction status: with acute organ dysfunction Sepsis type: sepsis due to unspecified organism Severe sepsis shock status: unspecified SHEBA (acute kidney injury) N17.9 Elevated troponin R79.89 COPD (chronic obstructive pulmonary disease) J44.9 Alcohol abuse F10.10 Paroxysmal A-fib I48.0 Polymyalgia rheumatica M35.3 Severe protein-calorie malnutrition E43 Rheumatoid arthritis M06.9 Unilateral vocal cord paralysis J38.01 Anemia D64.9 DVT prophylaxis Z29.9 Hypokalemia E87.6 Hypomagnesemia E83.42 (3) Pneumonia Laterality: left Lung location: unspecified part of lung Pneumonia type: due to unspecified organism Qualified Code(s): J18.9 - Pneumonia, unspecified organism (9) Sepsis Acute respiratory failure type: with hypoxia Sepsis acute organ dysfunction status: with acute organ dysfunction Sepsis type: sepsis due to unspecified organism Severe sepsis shock status: unspecified
[2023-09-09] MEDS ORDERED: OLANZapine ZYDIS 5 MG ORALLY DIS. TAB PO PRN (20:07)
[2023-09-09] MEDS: OLANZapine ZYDIS 5 MG ORALLY DIS. TAB PO SCH (20:31)
[2023-09-09] MEDS: MELATONIN 3 MG TAB PO SCH (20:31)
[2023-09-10] MEDS: HYDROCORTISONE SOD 20 MG in SYRINGE 0 ML IV SCH ×3 (00:14→16:03)
[2023-09-10] MEDS: BACITRACIN OINT 14 GM TUBE EXT SCH ×3 (00:15→16:02)
[2023-09-10] MEDS: CEFEPIME 2,000 MG in SYRINGE 0 ML IV SCH ×3 (03:13→20:07)
[2023-09-10] MEDS: metroNIDAZOLE 500 MG/100 ML BAG IV SCH ×3 (03:13→19:55)
[2023-09-10] MEDS: OLANZapine ZYDIS 5 MG ORALLY DIS. TAB PO SCH (04:52)
[2023-09-10 07:50] LABS: BUN Creatinine Ratio 25.3 (10-20); Calcium 8.4 mg/dl (8.6-10.3); Est GFR (Non-African American) 89.7 ml/min; Magnesium 1.7 mg/dl (1.7-2.4); Potassium 3.5 mmol/L (3.5-5.1)
[2023-09-10] MEDS: ZINC SULFATE 220 MG CAPSULE PO SCH (08:25)
[2023-09-10] MEDS: METOPROLOL TARTRATE 25 MG TAB PO SCH ×2 (08:25→19:58)
[2023-09-10] MEDS: PANTOprazole 40 MG TAB PO SCH (08:28)
[2023-09-10] MEDS: UMECLIDINIUM BROMIDE 62.5MCG/BLISTER 7 PUFFS/INHALER INH SCH (08:28)
[2023-09-10] MEDS: THIAMINE HCL 100 MG TAB PO SCH ×2 (08:29→19:57)
[2023-09-10] MEDS: HEPARIN SOD 5,000 UNIT/0.5 ML VIAL SQ SCH ×2 (08:29→19:59)
[2023-09-10] MEDS: DOCUSATE SODIUM 100 MG CAP PO SCH ×2 (08:31→20:07)
[2023-09-10 10:07] LABS: Base Excess VBG 6.9 mEq/L; HCO3 VBG 30 mmol/L; Oxygen Saturation VBG 94.4 %; PCO2 VBG 38 mmHg (38-50); PO2 VBG 64 mmHg; pH VBG 7.51 (7.36-7.41)
[2023-09-10] MEDS: CHOLECALCIFEROL 1,000 UNITS 25 MCG TAB PO SCH (10:46)
[2023-09-10] MEDS: FOLIC ACID 1 MG TAB PO SCH (10:46)
[2023-09-10] MEDS: CEROVITE ADV FORMULA TAB PO SCH (10:46)
--- NOTE | 2023-09-10 12:56 | Hospitalist Progress Note ---
Date of Service September 10, 2023 Assessment & Plan (1) Acute respiratory failure with hypoxia and hypercapnia: Plan: Patient has had varying degrees of respiratory failure since time of admission. Combination of decompensated CHF + pneumonia. 09/07 - had worsening resp acidosis - 2nd to the issues above. s/p BIPAP, change in antibiotic therapy, and diuresis. resolved - off all respiratory support including NC O2 / BIPAP. (2) Acute diastolic CHF (congestive heart failure): Plan: marked improvement this week in volume status d/c IV lasix will give low dose PO lasix today - 20mg po x 1 BMP am (3) Pneumonia: Plan: had completed 10+ days of broad-spectrum IV antibiotics during this stay (mainly zosyn) with start date of 08/26/23 zosyn had been used for both his intra-abdominal abscess/perforation/peritonitis as well his pneumonia despite the above his WBC count had worsened this week and his respiratory status had declined changed zosyn to meropenem briefly; pharmacy then recommended cefepime/flagyl in aditya of the meropenem - cefepime/flagyl started 09/08/23 checked COVID/flu/RSV swab --> negative checked MRSA swab --> negative speech therapy assistance appreciated VFSS - passed current pneumonia may be from a gram negative pathogen rather than aspiration at this point he is day #16 of IV abx dating back to his admission date of 08/26/23 safe to say he has had more than adequate antibiotic therapy for his lungs (4) Perforated viscus: Plan: s/p ex lap 08/31/[address] Sorenson perforation was from the cecum pathology - no malignancy intra-peritoneal cultures grew pseudomonas - pansensitive - as well as bacteroides has been on zosyn, then briefly meropenem, then changed to cefepime/flagyl - since 08/31 thus, today is day #11 of abx suspect we can transition over to PO abx tomorrow to complete 3 more days of Rx -- levaquin/flagyl ?? etiology of perforated cecum with abscess of pelvis?? did he have smoldering diverticulitis of the cecum? other process? appreciate Dr Sorenson's consult and ongoing assistance diet now advanced to regular diet (5) Intra-abdominal abscess: Plan: as seen on ex lap 08/31/23 abscess and perforation led to peritonitis and severe sepsis intra-op culture from ascites fluid - pseudomonas + bacteroides see #4 above appreciate surgical assistance (6) SBO (small bowel obstruction): Plan: had such early July upon presentation to [facility] in [facility]'s records suggest the transition point was in the terminal ileum he was treated conservatively with NG tube, etc and did not require surgery records state his last colonoscopy was 2018 which showed diverticulosis + hemorrhoids but no polyps EGD at the same time showed hiatal hernia (7) Abnormal CT scan, chest: Plan: b/l pneumonia. nodules also present - concerning for possible underlying malignancy. Appreciate pulm consultation and recs. Cont abx - see above Will need repeat CT chest in a few weeks to ensure improvement in all lung findings to exclude underlying malignancy (8) Acute metabolic encephalopathy: Plan: waxing/waning. night-time still very problematic with severe psychosis, agitation, etc at night. multifactorial - hospital psychosis, sepsis, pneumonia, acidosis, hypercapnia, etc. can't rule out nutritional deficiencies (Wernicke's, etc). s/p treatment of resp acidosis with BIPAP. Cont to hold TCA, sedatives, muscle relaxers, etc. He takes chronic narcotics outside the hospital but no signs/symptoms of withdrawal. B12 wnl. B1 level was high - likely due to recent thiamine supplementation. despite escalating doses of zyprexa he remains agitated at night-time, not sleeping, etc stop zyprexa change to seroquel 25mg HS cont melatonin 3mg HS recent EKG with QTc 490s this needs to be watched carefully of note - MRI brain NEGATIVE for acute or subacute CVA (9) Sepsis: Plan: 2nd to pneumonia. 2nd to pelvic abscess and peritonitis. see above re: antibiotics. (10) SHEBA (acute kidney injury): Plan: resolved Peak Cr 2 Now <1 Multifactorial causes BMP in am due to diuresis. (11) Elevated troponin: Plan: Peak HS trop 79. Likely myocardial demand ischemia. Doubt ACS. (12) COPD (chronic obstructive pulmonary disease): Plan: Cont steroids. Stop IV hydrocortisone tomorrow ; change to PO prednisone 20mg daily then wean to chronic dose. Cont nebs. Cont inhalers. (13) Alcohol abuse: Plan: Long standing history of such. Went thru withdrawal at [facility]. Had etoh withdrawal seizures by report at the outside hospital. last etoh beverage was 30+ days ago. (14) Paroxysmal A-fib: Plan: Had such while at [facility]. Had been on amiodarone to maintain NSR - hold. can likely resume tomorrow albeit at lower dose of 200mg BID. Holding Eliquis 5mg BID for now due to NPO status - can likely resume tomorrow if ok with gen surg. (15) Polymyalgia rheumatica: Plan: Sees rheum for such. On chronic steroids - basal dose uncertain. 7.5mg each day? (16) Severe protein-calorie malnutrition: Plan: Patient cachectic, etc. cont MVI cont boost etc (17) Rheumatoid arthritis: Plan: On prednisone + plaquenil chronically for such. No evidence of RA flare. Both meds on hold. Hydrocortisone TID ---> stop such tomorrow, place back on PO prednisone. (18) Unilateral vocal cord paralysis: Plan: Due to intubation/ventilation years ago at [facility] following a logging accident. (19) Anemia: Plan: H/H remain acceptable. B12, folate, Fe studies wnl. Likely anemia of chronic disease from RA, bone marrow suppression from etoh, blood draws, etc. (20) DVT prophylaxis: Plan: heparin 5000 BID once Eliquis is resumed will stop heparin SC (21) Hypokalemia: Plan: replaced resolved give K supplementation while diuresing (22) Hypomagnesemia: Plan: replaced resolved Plan daughters updated at bedside again today PT, OT when able OOB to chair if possible slowly making improvement but mental status still a big concern Admission and Anticipated Discharge Date Admission Date: August 26, 2023 Subjective per staff patient had restless night with sundowning, agitation, and was awake much of the night he required restraints overnight (now removed) and additional antipsychotic to get thru the night 2 visits to bedside first was during the lunch-hour he was eating ice cream; speech therapy was present and was observing his swallowing he was able to self-feed he held out his arm to shake my hand at one point 2nd visit was early afternoon his 2 daughters were present he was very sleepy during this 2nd visit; in fact he slept the entire time O2 was taken off this am and he has remained stable in room air since then maxi removed by staff Review of Systems Review of Systems: cv - no chest pain GI - no abd pain; moving bowels pulm - some cough gen - very weak psych - very discouraged by his weakness Physical Exam Physical Exam: gen - 1st visit - awake, eating ice cream, NAD; 2nd visit - very lethargic, but no acute distress;; cachectic/thin neck - no obvious JVD mouth - MMM; low, hoarse, raspy voice -- difficult to understand his speech heart - RRR, s1 s2, no murmur lungs - CTA b/l anteriorly; decreased BS bases R>L; no wheezes; scant rales abd - distension resolved, BS+, angela covered with a dry dressing; JUSTINA drain in place - light serosanguinous fluid in the bulb; nontender abdomen to palpation ext - very cool to touch (unchanged), pulses 1+ b/l Results & Data Results & Data Vital Signs (Past 12 Hours) Vital Signs Temp Pulse Pulse Resp BP BP Pulse Ox 09/10/23 11:58 36.3 C L 95 H 19 146/94 H 98 09/10/23 10:43 94 09/10/23 09:10 89 09/10/23 08:33 36.4 C L 105 H 19 146/82 H 09/10/23 03:15 36.9 C 99 H 20 164/94 H 91 O2 Del Method O2 Flow Rate 09/10/23 11:58 Nasal Cannula 2 09/10/23 10:43 Room Air 09/10/23 09:10 09/10/23 08:33 Room Air 09/10/23 03:15 Room Air Laboratory Results Laboratory Results - last 24 hr 09/10/23 09/10/23 06:25 09:49 VBG pH 7.51 H VBG pCO2 38 VBG pO2 64 VBG HCO3 30 VBG O2 Saturation 94.4 VBG Base Excess 6.9 Sodium 142 Potassium 3.5 Chloride 107 Carbon Dioxide 28 Anion Gap 7 BUN 20 Creatinine 0.79 Est Cr Clr Drug Dosing 79.0 Est GFR ( Amer) 104.0 Est GFR (Non-Af Amer) 89.7 BUN/Creatinine Ratio 25.3 H Glucose 139 H Calcium 8.4 L Magnesium 1.7 Diagnostic Findings Brain MRI 09/10/23 13:23 MR brain wo con CLINICAL HISTORY: ongoing altered MS, a.fib; r/o CVA TECHNIQUE: Multiplanar and multisequence MR images of the brain were obtained without intravenous contrast. Comparison: Comparison is made to CT head 08/26/2023 FINDINGS: No abnormal restricted diffusion is identified. Foci of T2 and FLAIR hyperint ensity are noted in the paraventricular areas consistent with chronic small vessel ischemic disease. Ex vacuo ventriculomegaly and sulcal enlargement is noted compatible with diffuse volume loss. No mass is seen. There is no mass effect or midline shift. There is no evidence of acute intraparenchymal hemorrhage. No extra axial fluid collections are seen. The corpus callosum, pituitary gland, and cerebellar tonsils appear grossly unremarkable. Flow voids of the major intracranial arterial vessels are identified. The imaged portions of the paranasal sinuses, mastoid air cells, and orbits are u nremarkable. IMPRESSION: No acute abnormality and in particular no evidence of acute infarct. ACT 112: Negative or not required by law. Electronically signed by: Brando Yuen M.D. 09/10/2023 7:39 PM Chest X-Ray 09/10/23 13:23 XR chest 1V portable CLINICAL HISTORY: Respiratory failure, tachypnea, interval change. COMPARISON STUDY: Chest radiograph September 08, 2023. Chest CT August 31, 2023. FINDINGS: Bilateral rib internal fixations are incidentally noted. There is no pneumothorax. Small to moderate right pleural effusion is again noted. There is a small left pleural effusion. Mild interstitial pulmonary edema has slightly improved. Bibasilar opacities persist. Left midlung densities are unchanged. Cardiomediastinal silhouette is stable. IMPRESSION: 1. Slight improvement in pulmonary edema and bilateral pleural effusions, right larger than left. 2. Left midlung densities which could reflect atelectasis or resolving infectious process. A neoplastic process is considered less likely. However, radiographic follow-up to ensure resolution is recommended. ACT 112: Negative or not required by law. Electronically signed by: Vic Eason M.D. 09/10/2023 2:02 PM PG Care Time/CCT Total # of Minutes Spent Total Time Spent with Patient: Total time spent is greater than 50% in coordination of care (as documented) at patient's floor/unit and/or counseling patient: Coding Level of Care Code 45202 SUB INP/OBS CARE 3/50MIN Diagnoses Acute respiratory failure with hypoxia and hypercapnia J96.01; J96.02 Acute diastolic CHF (congestive heart failure) I50.31 Pneumonia J18.9 Laterality: left Lung location: unspecified part of lung Pneumonia type: due to unspecified organism Perforated viscus R19.8 Intra-abdominal abscess K65.1 SBO (small bowel obstruction) K56.[address] scan, chest R93.89 Acute metabolic encephalopathy G93.41 Sepsis A41.9 Acute respiratory failure type: with hypoxia Sepsis acute organ dysfunction status: with acute organ dysfunction Sepsis type: sepsis due to unspecified organism Severe sepsis shock status: unspecified SHEBA (acute kidney injury) N17.9 Elevated troponin R79.89 COPD (chronic obstructive pulmonary disease) J44.9 Alcohol abuse F10.10 Paroxysmal A-fib I48.0 Polymyalgia rheumatica M35.3 Severe protein-calorie malnutrition E43 Rheumatoid arthritis M06.9 Unilateral vocal cord paralysis J38.01 Anemia D64.9 DVT prophylaxis Z29.9 Hypokalemia E87.6 Hypomagnesemia E83.42 (3) Pneumonia Laterality: left Lung location: unspecified part of lung Pneumonia type: due to unspecified organism Qualified Code(s): J18.9 - Pneumonia, unspecified organism (9) Sepsis Acute respiratory failure type: with hypoxia Sepsis acute organ dysfunction status: with acute organ dysfunction Sepsis type: sepsis due to unspecified organism Severe sepsis shock status: unspecified
--- NOTE | 2023-09-10 14:04 | XRay Report ---
XR chest 1V portable CLINICAL HISTORY: Respiratory failure, tachypnea, interval change. COMPARISON STUDY: Chest radiograph September 08, 2023. Chest CT August 31, 2023. FINDINGS: Bilateral rib internal fixations are incidentally noted. There is no pneumothorax. Small to moderate right pleural effusion is again noted. There is a small left pleural effusion. Mild interst itial pulmonary edema has slightly improved. Bibasilar opacities persist. Left midlung densities are unchanged. Cardiomediastinal silhouette is stable. IMPRESSION: 1. Slight improvement in pulmonary edema and bilateral pleural effusions, right larger than left. 2. Left midlung densities which could reflect atelectasis or resolving infectious process. A neoplast ic process is considered less likely. However, radiographic follow-up to ensure resolution is recomme nded. ACT 112: Negative or not required by law. Electronically signed by: Vic Eason M.D. 09/10/2023 2:02 PM
--- NOTE | 2023-09-10 16:02 | Surgery Progress Note ---
Date of Service September 10, 2023 Assessment & Plan (1) Perforated viscus: Plan: F/U S/P Exploratory Laparotomy and Partial Resection of Cecum with Drainage of Pelvic Abscess, POD 3 slow making progress, waiting for pass gas, speech consult for evaluation aspiration. 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 09/06/2023 7:45 AM F/U S/P Exploratory Laparotomy and Partial Resection of Cecum with Drainage of Pelvic Abscess, POD 6 slow making progress, waiting for pass gas, speech consult for evaluation aspiration. pt was aspiration last night. continue iv antibiotic Dulcolax 10 mg pr pt may benefits from PPN, medicine team please order PPN, PICC line. Thanks. will F/U. 09/07/2023 4:47 PM F/U S/P Exploratory Laparotomy and Partial Resection of Cecum with Drainage of Pelvic Abscess, POD 7 slow making progress, passed gas and BM. , speech consult for evaluation aspiration. continue iv antibiotic started PPN, repeat labs in morning. will F/U. 09/08/2023 3:31 PM F/U S/P Exploratory Laparotomy and Partial Resection of Cecum with Drainage of Pelvic Abscess, POD 8 doing better today, slow making progress, speech consult for evaluation aspiration. continue iv antibiotic started PPN, repeat labs in morning. will F/U. 09/09/2023 7:51 AM F/U S/P Exploratory Laparotomy and Partial Resection of Cecum with Drainage of Pelvic Abscess, POD 9 doing fine today, WBC normal low protein albumin pt will have a swallow evaluation study today. continue iv antibiotic repeat labs in morning. 09/10/2023 4:00 PM F/U S/P Exploratory Laparotomy and Partial Resection of Cecum with Drainage of Pelvic Abscess, POD 10 doing better today, tolerated diet I update to family members about pathology report. may remove JUSTINA in 1-2 days. will F/U. Admission and Anticipated Discharge Date Admission Date: August 26, 2023 Supervising Physician Co-Signing Physician Notes I saw and examined this patient this am. He is more awake at this time of the morning compared to yesterday am. His daughter is at the bedside confirming his sleep patterns are off at home and even worse here at this time noting he went to sleep at 5 am one morning then was awakened/back up at 9am. He is lethargic but able to respond to me. His O2 saturation requirement is decreased today to 4L face mask and he continues to Sat at 100%. He remains afebrile. He is denying abdominal pain, nausea, and believes he passed a small amount of flatus at some point yesterday. I would keep him NPO for today until we can be sure he is having more consistent bowel function and is generally well awake. Keep blinds open, lights on in the room during the day time. Discussed a potential mild, non-sedating sleep aid at bedtime tonight like Melatonin. OOB to chair today. Encourage incentive spirometer. PT eval and treat Dr. Sorenson will return tomorrow for continued surgical follow up and assessment. Subjective pt doing much better, sit at chair. tolerated diet, Passed BM. no fever, JUSTINA minimal , some leak around JUSTINA. Review of Systems Constitutional: no fever and no chills Eyes: as per Subjective / HPI Respiratory: + dyspnea; no cough Cardiovascular: no chest pain Gastrointestinal: + abdominal pain; no nausea and no vomit ing Genitourinary: no dysuria Neurologic: + generalized weakness Psychiatric: as per Subjective / HPI Endocrine: as per Subjective / HPI Hematologic / Lymphatic: Anemia Physical Exam Eyes: PERRL, conjunctivae normal, anicteric sclerae Neck: trachea midline, no thyromegaly Respiratory: Auscultation: lungs clear to auscultation bilaterally Cardiovascular: Rate/Rhythm: + irregularly irregular Gastrointestinal (Abdomen): soft, NT, ND, incision intact, JUSTINA intact, the dressing intact. Neurologic: patellar DTR's 2+ bilat, sensation intact and PERRL, EOMI, accommodation nl, no face palsy, no dysarthria Results & Data Vital Signs (Past 12 Hours) Vital Signs Temp Pulse Pulse Resp BP BP Pulse Ox 09/10/23 15:39 84 09/10/23 15:11 36.3 C L 82 19 146/80 H 96 09/10/23 11:58 36.3 C L 95 H 19 146/94 H 98 09/10/23 10:43 94 09/10/23 09:10 89 09/10/23 08:33 36.4 C L 105 H 19 146/82 H O2 Del Method O2 Flow Rate 09/10/23 15:39 09/10/23 15:11 Room Air 09/10/23 11:58 Nasal Cannula 2 12/22/23 10:43 Room Air 09/10/23 09:10 09/10/23 08:33 Room Air Laboratory Results Abnormal lab results 09/10/23 09/10/23 Range/Units 06:25 09:49 VBG pH 7.51 H (7.36-7.41) BUN/Creatinine Ratio 25.3 H (10-20) Glucose 139 H (70-99(Fasting)) mg/dl Calcium 8.4 L (8.6-10.3) mg/dl
[2023-09-10] MEDS ORDERED: POTASSIUM CHLORIDE CRTAB 20 MEQ TABCR PO STA (16:37)
[2023-09-10] MEDS ORDERED: FUROSEMIDE 20 MG TAB PO ONE (17:00)
--- NOTE | 2023-09-10 19:41 | Magnetic Resonance Report ---
MR brain wo con CLINICAL HISTORY: ongoing altered MS, a.fib; r/o CVA TECHNIQUE: Multiplanar and multisequence MR images of the brain were obtained without intravenous con trast. Comparison: Comparison is made to CT head 08/26/2023 FINDINGS: No abnormal restricted diffusion is identified. Foci of T2 and FLAIR hyperintensity are noted in the paraventricular areas consistent with chronic small vessel ischemic disease. Ex vacuo ventriculomegal y and sulcal enlargement is noted compatible with diffuse volume loss. No mass is seen. There is no m ass effect or midline shift. There is no evidence of acute intraparenchymal hemorrhage. No extra axia l fluid collections are seen. The corpus callosum, pituitary gland, and cerebellar tonsils appear nidia ssly unremarkable. Flow voids of the major intracranial arterial vessels are identified. The imaged portions of the para nasal sinuses, mastoid air cells, and orbits are unremarkable. IMPRESSION: No acute abnormality and in particular no evidence of acute infarct. ACT 112: Negative or not required by law. Electronically signed by: Brando Yuen M.D. 09/10/2023 7:39 PM
[2023-09-10] MEDS: MELATONIN 3 MG TAB PO SCH (19:58)
[2023-09-10] MEDS: MAGNESIUM OXIDE 400 MG TAB PO SCH (20:07)
[2023-09-10] MEDS ORDERED: OLANZapine ZYDIS 5 MG ORALLY DIS. TAB PO SCH (21:00)
[2023-09-10] MEDS ORDERED: QUEtiapine FUMARATE 25 MG TABLET PO SCH (21:00)
[2023-09-11] MEDS: BACITRACIN OINT 14 GM TUBE EXT SCH ×3 (01:55→17:08)
[2023-09-11] MEDS: HYDROCORTISONE SOD 20 MG in SYRINGE 0 ML IV SCH (01:56)
[2023-09-11] MEDS: metroNIDAZOLE 500 MG/100 ML BAG IV SCH ×3 (03:53→20:55)
[2023-09-11] MEDS: CEFEPIME 2,000 MG in SYRINGE 0 ML IV SCH ×3 (03:55→20:54)
[2023-09-11 06:12] LABS: BUN Creatinine Ratio 22.3 (10-20); Calcium 8.6 mg/dl (8.6-10.3); Creatinine Clr Calc Pharmacy 66.4 ml/min; Est GFR (African American) 93.5 ml/min; Est GFR (Non-African American) 80.7 ml/min; Magnesium 1.7 mg/dl (1.7-2.4); Potassium 3.4 mmol/L (3.5-5.1)
--- NOTE | 2023-09-11 06:19 | Electrocardiogram Report ---
Test Reason : Blood Pressure : / mmHG Vent. Rate : 087 BPM Atrial Rate : 087 BPM P-R Int : 190 ms QRS Dur : 092 ms QT Int : 406 ms P-R-T Axes : 069 -39 255 degrees QTc Int : 488 ms Poor data quality, interpretation may be adversely affected Normal sinus rhythm Left axis deviation T wave abnormality, consider inferior ischemia Prolonged QT Abnormal ECG When compared with ECG of 26-AUG-2023 17:27, Inverted T waves have replaced nonspecific T wave abnormality in Inferior leads Inverted T waves have replaced nonspecific T wave abnormality in Lateral leads Confirmed by Jenaro Eckert ([id number]) on 09/11/2023 6:18:51 AM Referred By: REFERRED SELF Confirmed By:Jenaro Eckert
[2023-09-11] MEDS: MAGNESIUM OXIDE 400 MG TAB PO SCH ×2 (07:33→20:56)
[2023-09-11] MEDS: CHOLECALCIFEROL 1,000 UNITS 25 MCG TAB PO SCH (07:33)
[2023-09-11] MEDS: METOPROLOL TARTRATE 25 MG TAB PO SCH ×2 (07:34→20:57)
[2023-09-11] MEDS: THIAMINE HCL 100 MG TAB PO SCH ×2 (07:34→20:58)
[2023-09-11] MEDS: HEPARIN SOD 5,000 UNIT/0.5 ML VIAL SQ SCH (07:34)
[2023-09-11] MEDS: CEROVITE ADV FORMULA TAB PO SCH (07:37)
[2023-09-11] MEDS: ZINC SULFATE 220 MG CAPSULE PO SCH (07:37)
[2023-09-11] MEDS: FOLIC ACID 1 MG TAB PO SCH (07:37)
[2023-09-11] MEDS: PANTOprazole 40 MG TAB PO SCH (07:37)
[2023-09-11] MEDS: DOCUSATE SODIUM 100 MG CAP PO SCH ×2 (07:39→21:01)
[2023-09-11] MEDS: POTASSIUM CHLORIDE CRTAB 20 MEQ TABCR PO SCH (08:59)
[2023-09-11] MEDS ORDERED: predniSONE 20 MG TAB PO SCH (09:00)
[2023-09-11] MEDS: UMECLIDINIUM BROMIDE 62.5MCG/BLISTER 7 PUFFS/INHALER INH SCH (15:17)
--- NOTE | 2023-09-11 16:28 | Surgery Progress Note ---
Date of Service September 11, 2023 Assessment & Plan (1) Perforated viscus: Plan: F/U S/P Exploratory Laparotomy and Partial Resection of Cecum with Drainage of Pelvic Abscess, POD 3 slow making progress, waiting for pass gas, speech consult for evaluation aspiration. 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 09/06/2023 7:45 AM F/U S/P Exploratory Laparotomy and Partial Resection of Cecum with Drainage of Pelvic Abscess, POD 6 slow making progress, waiting for pass gas, speech consult for evaluation aspiration. pt was aspiration last night. continue iv antibiotic Dulcolax 10 mg pr pt may benefits from PPN, medicine team please order PPN, PICC line. Thanks. will F/U. 09/07/2023 4:47 PM F/U S/P Exploratory Laparotomy and Partial Resection of Cecum with Drainage of Pelvic Abscess, POD 7 slow making progress, passed gas and BM. , speech consult for evaluation aspiration. continue iv antibiotic started PPN, repeat labs in morning. will F/U. 09/08/2023 3:31 PM F/U S/P Exploratory Laparotomy and Partial Resection of Cecum with Drainage of Pelvic Abscess, POD 8 doing better today, slow making progress, speech consult for evaluation aspiration. continue iv antibiotic started PPN, repeat labs in morning. will F/U. 09/09/2023 7:51 AM F/U S/P Exploratory Laparotomy and Partial Resection of Cecum with Drainage of Pelvic Abscess, POD 9 doing fine today, WBC normal low protein albumin pt will have a swallow evaluation study today. continue iv antibiotic repeat labs in morning. 09/10/2023 4:00 PM F/U S/P Exploratory Laparotomy and Partial Resection of Cecum with Drainage of Pelvic Abscess, POD 10 doing better today, tolerated diet I update to family members about pathology report. may remove JUSTINA in 1-2 days. will F/U. 09/11/2023 4:27 PM F/U S/P Exploratory Laparotomy and Partial Resection of Cecum with Drainage of Pelvic Abscess, POD 11 tolerated diet may remove JUSTINA tomorrow. . will F/U. Admission and Anticipated Discharge Date Admission Date: August 26, 2023 Supervising Physician Co-Signing Physician Notes I saw and examined this patient this am. He is more awake at this time of the morning compared to yesterday am. His daughter is at the bedside confirming his sleep patterns are off at home and even worse here at this time noting he went to sleep at 5 am one morning then was awakened/back up at 9am. He is lethargic but able to respond to me. His O2 saturation requirement is decreased today to 4L face mask and he continues to Sat at 100%. He remains afebrile. He is denying abdominal pain, nausea, and believes he passed a small amount of flatus at some point yesterday. I would keep him NPO for today until we can be sure he is having more consistent bowel function and is generally well awake. Keep blinds open, lights on in the room during the day time. Discussed a potential mild, non-sedating sleep aid at bedtime tonight like Melatonin. OOB to chair today. Encourage incentive spirometer. PT eval and treat Dr. Sorenson will return tomorrow for continued surgical follow up and assessment. Subjective pt is stable, tolerated diet, no nausea, no vomiting, no fever, JUSTINA minimal. some leak around the JUSTINA. Review of Systems Constitutional: no fever and no chills Eyes: as per Subjective / HPI Respiratory: + dyspnea; no cough Cardiovascular: no chest pain Gastrointestinal: + abdominal pain; no nausea and no vomit ing Genitourinary: no dysuria Neurologic: + generalized weakness Psychiatric: as per Subjective / HPI Endocrine: as per Subjective / HPI Hematologic / Lymphatic: Anemia Physical Exam Eyes: PERRL, conjunctivae normal, anicteric sclerae Neck: trachea midline, no thyromegaly Respiratory: Auscultation: lungs clear to auscultation bilaterally Cardiovascular: Rate/Rhythm: + irregularly irregular Gastrointestinal (Abdomen): soft, NT, ND. BS +. some clear fluid leak around JUSTINA tube. Neurologic: patellar DTR's 2+ bilat, sensation intact and PERRL, EOMI, accommodation nl, no face palsy, no dysarthria Results & Data Vital Signs (Past 12 Hours) Vital Signs Temp Pulse Pulse Resp BP Pulse Ox O2 Del Method 09/11/23 16:17 36.7 C 78 18 178/91 H 92 Room Air 09/11/23 12:10 36.5 C 86 18 152/90 H 96 Room Air 09/11/23 10:19 83 09/11/23 10:19 Room Air 09/11/23 08:13 36.5 C 47 L 18 169/88 H 92 Room Air Laboratory Results Lab Results 08/26/23 08/26/23 08/26/23 Range/Units 17:27 17:38 17:47 WBC 17.19 H (4.8-10.8) K/ul RBC 3.31 L (4.70-6.10) M/uL Hgb 10.4 L (14.0-18.0) g/dl POC Hgb 10.9 L 11.6 L (14.0-18.0) g/dl Hct 31.4 L (42.0-52.0) % POC Hct 32 L 34 L (42-52) % MCV 94.9 (80.0-100.0) fL MCH 31.4 (25.0-34.0) pg MCHC 33.1 (32.0-36.0) g/dL RDW Std Deviation 46.5 H (36.4-46.3) fL RDW Coeff of Jesse 13.4 (11.5-14.5) % Plt Count 373 (130-400) K/uL MPV 9.7 (9.4-12.4) fL Immature Gran % (Auto) 1.2 % Neut % (Auto) 87.6 % Lymph % (Auto) 5.1 % [place] % (Auto) 5.9 % Eos % (Auto) 0.0 % Baso % (Auto) 0.2 % Neut # (Auto) 15.06 H (1.40-6.50) K/uL Lymph # (Auto) 0.88 L (1.20-3.40) K/uL [place] # (Auto) 1.01 H (0.11-0.59) K/uL Eos # (Auto) 0.00 (0.00-0.50) K/uL Baso # (Auto) 0.04 (0.00-0.20) K/uL Immature Gran # (Auto) 0.20 (0.01-0.20) K/uL Platelet Estimate (Normal) RBC Morphology Echinocytes PT 14.3 H (9.0-12.0) Seconds INR 1.3 H (0.9-1.1) APTT 27 (21-31) Seconds PTT Ratio 1.0 D-Dimer (0-500) ug/L FEU Sample Site POC pH 7.44 (7.35-7.45) POC pCO2 35 (35-46) mmHg POC pO2 135 H (80-95) mmHg POC HCO3 23 (19-24) lachelle/L POC Total CO2 24 26 (24-31) mmol/L POC Base Excess -1.0 (-9-1.8) lachelle/L ABG pH (7.35-7.45) ABG pH (Temp Correct) (7.35-7.45) ABG pCO2 (35-46) mmHg ABG pCO2 (Temp Corrct (35-46) mmHg ABG pO2 (80-95) mmHg POC ABG pO2 at Pt Temp ABG HCO3 (19-24) mmol/L POC ABG O2 Sat 99.0 H (90-95) % ABG O2 Saturation (90-95) % ABG Base Excess (-9-1.8) mEq/L Mikey Test (Pos) VBG pH (7.36-7.41) VBG pCO2 (38-50) mmHg VBG pO2 mmHg VBG HCO3 mmol/L VBG O2 Saturation % VBG Base Excess mEq/L Oxygen Given O2 Delivery Device POC O2 Rate POC FiO2 % Tidal Volume PEEP POC Sodium 140 140 (135-144) mmol/L Sodium 141 (136-145) mmol/L POC Potassium 4.1 4.4 (3.3-5.0) mmol/L Potassium 3.9 (3.5-5.1) mmol/L POC Chloride 100 L (101-112) mmol/L Chloride 102 (98-107) mmol/L Carbon Dioxide 23 (21-32) mmol/L Anion Gap 16 H (3-11) POC Anion Gap 19.0 (16-25) mmol/L POC BUN 50 H (7-18) mg/dl BUN 57 H (6-23) mg/dl Creatinine 2.43 H (0.6-1.4) mg/dl POC Creatinine 2.7 H (0.6-1.3) mg/dl Est Cr Clr Drug Dosing Not Reportable Est GFR ( Amer) 29.7 ml/min Est GFR (Non-Af Amer) 25.6 ml/min BUN/Creatinine Ratio 23.5 H (10-20) Glucose 137 H (70-99(Fasting)) mg/dl POC Glucose (70-99) mg/dl POC Glucose (other) 134 H (70-99) mg/dl Lactate 2.7 H* (0.4-2.0) mmol/L Calcium 9.4 (8.6-10.3) mg/dl POC Ioniz Calcium José Antonio 1.14 (1.12-1.32) mmol/l Phosphorus (2.5-4.9) mg/dl Magnesium 2.0 (1.7-2.4) mg/dl Iron (35-175) mcg/dl TIBC (250-450) mcg/dl Unsaturated IBC (155-355) mcg/dl Transferrin % Sat (20-50) % Ferritin (8-388) ng/ml Total Bilirubin 0.6 (0.2-1.0) mg/dl Direct Bilirubin 0.2 (0-0.2) mg/dl AST 25 (13-39) U/L ALT 37 (7-52) U/L Alkaline Phosphatase 281 H (34-104) U/L Ammonia (18-72) umol/L Troponin I High Sens 79.5 H* (0-20) pg/ml Total Protein 6.9 (6.0-8.3) gm/dl Albumin 3.7 (3.4-5.0) gm/dl Globulin (2.5-4.0) gm/dl Albumin/Globulin Ratio (0.9-2) Triglycerides (0-150) mg/dl Vitamin B1 (8-30) nmol/L Vitamin B12 (180-914) pg/ml 25-OH Vitamin D Total (30-100) ng/ml Folate (>5.38) ng/ml Procalcitonin 0.34 (0-0.5) ng/ml TSH (0.300-4.500) uIu/ml Free T4 (0.61-1.60) ng/dl Urine Color Urine Appearance (Clear) Urine pH (4.5-7.5) Ur Specific [place] (1.000-1.030) Urine Protein (Negative) Urine Glucose (UA) (Negative) Urine Ketones (Negative) Urine Blood (Negative) Urine Nitrite (Negative) Urine Bilirubin (Negative) Urine Urobilinogen (Negative) Ur Leukocyte Esterase (Negative) Urine WBC (Auto) Urine RBC (Auto) U Hyaline Cast (Auto) U Epithel Cells (Auto) Urine Bacteria (Auto) Ur Renal Epithelial Cell Urine Crystals Calcium Oxalate Crystal Uric Acid Crystals Triple Phos Crystals Other Crystals Amorphous Sediment Granular Casts Waxy Casts RBC Casts WBC Casts Pathogenic Casts Other Casts Urine Mucus Urine Other Urine Trichomonas Urine Yeast Urine Sperm Ur Oval Fat Bodies Ur Culture Indicated? Nasal Screen MRSA (PCR) (Negative) Random Vancomycin (10-20) mcg/ml Adenovirus (PCR) (NotDetected) B. pertussis DNA (PCR) (NotDetected) B.parapertussis DNA PCR (NotDetected) C. pneumoniae DNA (PCR) (NotDetected) Coronavirus OC43 (PCR) (NotDetected) Coronavirus HKU1 (PCR) (NotDetected) Coronavirus 229E (PCR) (NotDetected) SARS-CoV-2 (PCR) (NotDetected) Coronavirus NL63 (PCR) (NotDetected) Human Metapneumovir PCR (NotDetected) Influenza Type A (PCR) (NotDetected) Influenza Type B (PCR) (NotDetected) M. pneumoniae (PCR) (NotDetected) Parainfluenza 1 (PCR) (NotDetected) Parainfluenza 2 (PCR) (NotDetected) Parainfluenza 3 (PCR) (NotDetected) Parainfluenza 4 (PCR) (NotDetected) RSV (RT-PCR) (Neg) RSV (PCR) (NotDetected) Entero/Rhino (PCR) (NotDetected) Blood Type Blood Type Recheck Antibody Screen Crossmatch 08/26/23 08/26/23 08/26/23 Range/Units 18:26 19:39 19:40 WBC (4.8-10.8) K/ul RBC (4.70-6.10) M/uL Hgb (14.0-18.0) g/dl POC Hgb (14.0-18.0) g/dl Hct (42.0-52.0) % POC Hct (42-52) % MCV (80.0-100.0) fL MCH (25.0-34.0) pg MCHC (32.0-36.0) g/dL RDW Std Deviation (36.4-46.3) fL RDW Coeff of Jesse (11.5-14.5) % Plt Count (130-400) K/uL MPV (9.4-12.4) fL Immature Gran % (Auto) % Neut % (Auto) % Lymph % (Auto) % [place] % (Auto) % Eos % (Auto) % Baso % (Auto) % Neut # (Auto) (1.40-6.50) K/uL Lymph # (Auto) (1.20-3.40) K/uL [place] # (Auto) (0.11-0.59) K/uL Eos # (Auto) (0.00-0.50) K/uL Baso # (Auto) (0.00-0.20) K/uL Immature Gran # (Auto) (0.01-0.20) K/uL Platelet Estimate (Normal) RBC Morphology Echinocytes PT (9.0-12.0) Seconds INR (0.9-1.1) APTT (21-31) Seconds PTT Ratio D-Dimer (0-500) ug/L FEU Sample Site POC pH (7.35-7.45) POC pCO2 (35-46) mmHg POC pO2 (80-95) mmHg POC HCO3 (19-24) lachelle/L POC Total CO2 (24-31) mmol/L POC Base Excess (-9-1.8) lachelle/L ABG pH (7.35-7.45) ABG pH (Temp Correct) (7.35-7.45) ABG pCO2 (35-46) mmHg ABG pCO2 (Temp Corrct (35-46) mmHg ABG pO2 (80-95) mmHg POC ABG pO2 at Pt Temp ABG HCO3 (19-24) mmol/L POC ABG O2 Sat (90-95) % ABG O2 Saturation (90-95) % ABG Base Excess (-9-1.8) mEq/L Mikey Test (Pos) VBG pH (7.36-7.41) VBG pCO2 (38-50) mmHg VBG pO2 mmHg VBG HCO3 mmol/L VBG O2 Saturation % VBG Base Excess mEq/L Oxygen Given O2 Delivery Device POC O2 Rate POC FiO2 % Tidal Volume PEEP POC Sodium (135-144) mmol/L Sodium (136-145) mmol/L POC Potassium (3.3-5.0) mmol/L Potassium (3.5-5.1) mmol/L POC Chloride (101-112) mmol/L Chloride (98-107) mmol/L Carbon Dioxide (21-32) mmol/L Anion Gap (3-11) POC Anion Gap (16-25) mmol/L POC BUN (7-18) mg/dl BUN (6-23) mg/dl Creatinine (0.6-1.4) mg/dl POC Creatinine (0.6-1.3) mg/dl Est Cr Clr Drug Dosing Est GFR ( Amer) ml/min Est GFR (Non-Af Amer) ml/min BUN/Creatinine Ratio (10-20) Glucose (70-99(Fasting)) mg/dl POC Glucose (70-99) mg/dl POC Glucose (other) (70-99) mg/dl Lactate 2.9 H* (0.4-2.0) mmol/L Calcium (8.6-10.3) mg/dl POC Ioniz Calcium [place] (1.12-1.32) mmol/l Phosphorus (2.5-4.9) mg/dl Magnesium (1.7-2.4) mg/dl Iron (35-175) mcg/dl TIBC (250-450) mcg/dl Unsaturated IBC (155-355) mcg/dl Transferrin % Sat (20-50) % Ferritin (8-388) ng/ml Total Bilirubin (0.2-1.0) mg/dl Direct Bilirubin (0-0.2) mg/dl AST (13-39) U/L ALT (7-52) U/L Alkaline Phosphatase (34-104) U/L Ammonia (18-72) umol/L Troponin I High Sens 75.8 H* (0-20) pg/ml Total Protein (6.0-8.3) gm/dl Albumin (3.4-5.0) gm/dl Globulin (2.5-4.0) gm/dl Albumin/Globulin Ratio (0.9-2) Triglycerides (0-150) mg/dl Vitamin B1 (8-30) nmol/L Vitamin B12 (180-914) pg/ml 25-OH Vitamin D Total (30-100) ng/ml Folate (>5.38) ng/ml Procalcitonin (0-0.5) ng/ml TSH (0.300-4.500) uIu/ml Free T4 (0.61-1.60) ng/dl Urine Color Urine Appearance (Clear) Urine pH (4.5-7.5) Ur Specific [place] (1.000-1.030) Urine Protein (Negative) Urine Glucose (UA) (Negative) Urine Ketones (Negative) Urine Blood (Negative) Urine Nitrite (Negative) Urine Bilirubin (Negative) Urine Urobilinogen (Negative) Ur Leukocyte Esterase (Negative) Urine WBC (Auto) Urine RBC (Auto) U Hyaline Cast (Auto) U Epithel Cells (Auto) Urine Bacteria (Auto) Ur Renal Epithelial Cell Urine Crystals Calcium Oxalate Crystal Uric Acid Crystals Triple Phos Crystals Other Crystals Amorphous Sediment Granular Casts Waxy Casts RBC Casts WBC Casts Pathogenic Casts Other Casts Urine Mucus Urine Other Urine Trichomonas Urine Yeast Urine Sperm Ur Oval Fat Bodies Ur Culture Indicated? Nasal Screen MRSA (PCR) (Negative) Random Vancomycin (10-20) mcg/ml Adenovirus (PCR) Not Detected (NotDetected) B. pertussis DNA (PCR) Not Detected (NotDetected) B.parapertussis DNA PCR Not Detected (NotDetected) C. pneumoniae DNA (PCR) Not Detected (NotDetected) Coronavirus OC43 (PCR) Not Detected (NotDetected) Coronavirus HKU1 (PCR) Not Detected (NotDetected) Coronavirus 229E (PCR) Not Detected (NotDetected) SARS-CoV-2 (PCR) Not Detected (NotDetected) Coronavirus NL63 (PCR) Not Detected (NotDetected) Human Metapneumovir PCR Not Detected (NotDetected) Influenza Type A (PCR) Not Detected (NotDetected) Influenza Type B (PCR) Not Detected (NotDetected) M. pneumoniae (PCR) Not Detected (NotDetected) Parainfluenza 1 (PCR) Not Detected (NotDetected) Parainfluenza 2 (PCR) Not Detected (NotDetected) Parainfluenza 3 (PCR) Not Detected (NotDetected) Parainfluenza 4 (PCR) Not Detected (NotDetected) RSV (RT-PCR) (Neg) RSV (PCR) Not Detected (NotDetected) Entero/Rhino (PCR) Not Detected (NotDetected) Blood Type Blood Type Recheck Antibody Screen Crossmatch 08/26/23 08/26/23 08/27/23 Range/Units 21:22 21:24 00:07 WBC (4.8-10.8) K/ul RBC (4.70-6.10) M/uL Hgb (14.0-18.0) g/dl POC Hgb (14.0-18.0) g/dl Hct (42.0-52.0) % POC Hct (42-52) % MCV (80.0-100.0) fL MCH (25.0-34.0) pg MCHC (32.0-36.0) g/dL RDW Std Deviation (36.4-46.3) fL RDW Coeff of Jesse (11.5-14.5) % Plt Count (130-400) K/uL MPV (9.4-12.4) fL Immature Gran % (Auto) % Neut % (Auto) % Lymph % (Auto) % [place] % (Auto) % Eos % (Auto) % Baso % (Auto) % Neut # (Auto) (1.40-6.50) K/uL Lymph # (Auto) (1.20-3.40) K/uL [place] # (Auto) (0.11-0.59) K/uL Eos # (Auto) (0.00-0.50) K/uL Baso # (Auto) (0.00-0.20) K/uL Immature Gran # (Auto) (0.01-0.20) K/uL Platelet Estimate (Normal) RBC Morphology Echinocytes PT (9.0-12.0) Seconds INR (0.9-1.1) APTT (21-31) Seconds PTT Ratio D-Dimer (0-500) ug/L FEU Sample Site POC pH (7.35-7.45) POC pCO2 (35-46) mmHg POC pO2 (80-95) mmHg POC HCO3 (19-24) lachelle/L POC Total CO2 (24-31) mmol/L POC Base Excess (-9-1.8) lachelle/L ABG pH 7.41 (7.35-7.45) ABG pH (Temp Correct) (7.35-7.45) ABG pCO2 37 (35-46) mmHg ABG pCO2 (Temp Corrct (35-46) mmHg ABG pO2 124 H (80-95) mmHg POC ABG pO2 at Pt Temp ABG HCO3 24 (19-24) mmol/L POC ABG O2 Sat (90-95) % ABG O2 Saturation 98.3 H (90-95) % ABG Base Excess -0.8 (-9-1.8) mEq/L Mikey Test Pos (Pos) VBG pH (7.36-7.41) VBG pCO2 (38-50) mmHg VBG pO2 mmHg VBG HCO3 mmol/L VBG O2 Saturation % VBG Base Excess mEq/L Oxygen Given 55% O2 Delivery Device POC O2 Rate POC FiO2 % Tidal Volume PEEP POC Sodium (135-144) mmol/L Sodium (136-145) mmol/L POC Potassium (3.3-5.0) mmol/L Potassium (3.5-5.1) mmol/L POC Chloride (101-112) mmol/L Chloride (98-107) mmol/L Carbon Dioxide (21-32) mmol/L Anion Gap (3-11) POC Anion Gap (16-25) mmol/L POC BUN (7-18) mg/dl BUN (6-23) mg/dl Creatinine (0.6-1.4) mg/dl POC Creatinine (0.6-1.3) mg/dl Est Cr Clr Drug Dosing Est GFR ( Amer) ml/min Est GFR (Non-Af Amer) ml/min BUN/Creatinine Ratio (10-20) Glucose (70-99(Fasting)) mg/dl POC Glucose (70-99) mg/dl POC Glucose (other) (70-99) mg/dl Lactate 1.1 (0.4-2.0) mmol/L Calcium (8.6-10.3) mg/dl POC Ioniz Calcium [place] (1.12-1.32) mmol/l Phosphorus (2.5-4.9) mg/dl Magnesium (1.7-2.4) mg/dl Iron (35-175) mcg/dl TIBC (250-450) mcg/dl Unsaturated IBC (155-355) mcg/dl Transferrin % Sat (20-50) % Ferritin (8-388) ng/ml Total Bilirubin (0.2-1.0) mg/dl Direct Bilirubin (0-0.2) mg/dl AST (13-39) U/L ALT (7-52) U/L Alkaline Phosphatase (34-104) U/L Ammonia (18-72) umol/L Troponin I High Sens (0-20) pg/ml Total Protein (6.0-8.3) gm/dl Albumin (3.4-5.0) gm/dl Globulin (2.5-4.0) gm/dl Albumin/Globulin Ratio (0.9-2) Triglycerides (0-150) mg/dl Vitamin B1 (8-30) nmol/L Vitamin B12 (180-914) pg/ml 25-OH Vitamin D Total (30-100) ng/ml Folate (>5.38) ng/ml Procalcitonin (0-0.5) ng/ml TSH (0.300-4.500) uIu/ml Free T4 (0.61-1.60) ng/dl Urine Color Yellow Urine Appearance Cloudy A (Clear) Urine pH 5.5 (4.5-7.5) Ur Specific [place] >= 1.030 (1.000-1.030) Urine Protein 3+ H (Negative) Urine Glucose (UA) Negative (Negative) Urine Ketones Negative (Negative) Urine Blood 3+ H (Negative) Urine Nitrite Negative (Negative) Urine Bilirubin 1+ H (Negative) Urine Urobilinogen Negative (Negative) Ur Leukocyte Esterase Trace H (Negative) Urine WBC (Auto) Cancelled Urine RBC (Auto) Cancelled U Hyaline Cast (Auto) Cancelled U Epithel Cells (Auto) Cancelled Urine Bacteria (Auto) Cancelled Ur Renal Epithelial Cell Cancelled Urine Crystals Cancelled Calcium Oxalate Crystal Cancelled Uric Acid Crystals Cancelled Triple Phos Crystals Cancelled Other Crystals Cancelled Amorphous Sediment Cancelled Granular Casts Cancelled Waxy Casts Cancelled RBC Casts Cancelled WBC Casts Cancelled Pathogenic Casts Cancelled Other Casts Cancelled Urine Mucus Cancelled Urine Other Cancelled Urine Trichomonas Cancelled Urine Yeast Cancelled Urine Sperm Cancelled Ur Oval Fat Bodies Cancelled Ur Culture Indicated? Cancelled Nasal Screen MRSA (PCR) Negative (Negative) Random Vancomycin (10-20) mcg/ml Adenovirus (PCR) (NotDetected) B. pertussis DNA (PCR) (NotDetected) B.parapertussis DNA PCR (NotDetected) C. pneumoniae DNA (PCR) (NotDetected) Coronavirus OC43 (PCR) (NotDetected) Coronavirus HKU1 (PCR) (NotDetected) Coronavirus 229E (PCR) (NotDetected) SARS-CoV-2 (PCR) (NotDetected) Coronavirus NL63 (PCR) (NotDetected) Human Metapneumovir PCR (NotDetected) Influenza Type A (PCR) (NotDetected) Influenza Type B (PCR) (NotDetected) M. pneumoniae (PCR) (NotDetected) Parainfluenza 1 (PCR) (NotDetected) Parainfluenza 2 (PCR) (NotDetected) Parainfluenza 3 (PCR) (NotDetected) Parainfluenza 4 (PCR) (NotDetected) RSV (RT-PCR) (Neg) RSV (PCR) (NotDetected) Entero/Rhino (PCR) (NotDetected) Blood Type Blood Type Recheck Antibody Screen Crossmatch 08/27/23 08/27/23 08/27/23 Range/Units 01:27 06:04 06:08 WBC 18.54 H (4.8-10.8) K/ul RBC 2.88 L (4.70-6.10) M/uL Hgb 9.0 L (14.0-18.0) g/dl POC Hgb (14.0-18.0) g/dl Hct 27.4 L (42.0-52.0) % POC Hct (42-52) % MCV 95.1 (80.0-100.0) fL MCH 31.3 (25.0-34.0) pg MCHC 32.8 (32.0-36.0) g/dL RDW Std Deviation 46.9 H (36.4-46.3) fL RDW Coeff of Jesse 13.4 (11.5-14.5) % Plt Count 267 (130-400) K/uL MPV 9.5 (9.4-12.4) fL Immature Gran % (Auto) 0.8 % Neut % (Auto) 94.0 % Lymph % (Auto) 2.5 % [place] % (Auto) 2.5 % Eos % (Auto) 0.0 % Baso % (Auto) 0.2 % Neut # (Auto) 17.43 H (1.40-6.50) K/uL Lymph # (Auto) 0.47 L (1.20-3.40) K/uL [place] # (Auto) 0.47 (0.11-0.59) K/uL Eos # (Auto) 0.00 (0.00-0.50) K/uL Baso # (Auto) 0.03 (0.00-0.20) K/uL Immature Gran # (Auto) 0.14 (0.01-0.20) K/uL Platelet Estimate (Normal) RBC Morphology Echinocytes PT (9.0-12.0) Seconds INR (0.9-1.1) APTT (21-31) Seconds PTT Ratio D-Dimer (0-500) ug/L FEU Sample Site POC pH (7.35-7.45) POC pCO2 (35-46) mmHg POC pO2 (80-95) mmHg POC HCO3 (19-24) lachelle/L POC Total CO2 (24-31) mmol/L POC Base Excess (-9-1.8) lachelle/L ABG pH 7.42 7.44 (7.35-7.45) ABG pH (Temp Correct) (7.35-7.45) ABG pCO2 36 32 L (35-46) mmHg ABG pCO2 (Temp Corrct (35-46) mmHg ABG pO2 81 86 (80-95) mmHg POC ABG pO2 at Pt Temp ABG HCO3 23 22 (19-24) mmol/L POC ABG O2 Sat (90-95) % ABG O2 Saturation 96.2 H 97.2 H (90-95) % ABG Base Excess -0.7 -1.6 (-9-1.8) mEq/L Mikey Test Pos Pos (Pos) VBG pH (7.36-7.41) VBG pCO2 (38-50) mmHg VBG pO2 mmHg VBG HCO3 mmol/L VBG O2 Saturation % VBG Base Excess mEq/L Oxygen Given 4L 5L O2 Delivery Device POC O2 Rate POC FiO2 % Tidal Volume PEEP POC Sodium (135-144) mmol/L Sodium 142 (136-145) mmol/L POC Potassium (3.3-5.0) mmol/L Potassium 3.8 (3.5-5.1) mmol/L POC Chloride (101-112) mmol/L Chloride 108 H (98-107) mmol/L Carbon Dioxide 22 (21-32) mmol/L Anion Gap 12 H (3-11) POC Anion Gap (16-25) mmol/L POC BUN (7-18) mg/dl BUN 68 H (6-23) mg/dl Creatinine 2.75 H D (0.6-1.4) mg/dl POC Creatinine (0.6-1.3) mg/dl Est Cr Clr Drug Dosing 21.7 Est GFR ( Amer) 25.5 ml/min Est GFR (Non-Af Amer) 22.0 ml/min BUN/Creatinine Ratio 24.7 H (10-20) Glucose 145 H (70-99(Fasting)) mg/dl POC Glucose (70-99) mg/dl POC Glucose (other) (70-99) mg/dl Lactate (0.4-2.0) mmol/L Calcium 8.5 L (8.6-10.3) mg/dl POC Ioniz Calcium [place] (1.12-1.32) mmol/l Phosphorus (2.5-4.9) mg/dl Magnesium 1.7 (1.7-2.4) mg/dl Iron (35-175) mcg/dl TIBC (250-450) mcg/dl Unsaturated IBC (155-355) mcg/dl Transferrin % Sat (20-50) % Ferritin (8-388) ng/ml Total Bilirubin (0.2-1.0) mg/dl Direct Bilirubin (0-0.2) mg/dl AST (13-39) U/L ALT (7-52) U/L Alkaline Phosphatase (34-104) U/L Ammonia (18-72) umol/L Troponin I High Sens 76.2 H* (0-20) pg/ml Total Protein (6.0-8.3) gm/dl Albumin (3.4-5.0) gm/dl Globulin (2.5-4.0) gm/dl Albumin/Globulin Ratio (0.9-2) Triglycerides (0-150) mg/dl Vitamin B1 (8-30) nmol/L Vitamin B12 (180-914) pg/ml 25-OH Vitamin D Total (30-100) ng/ml Folate (>5.38) ng/ml Procalcitonin (0-0.5) ng/ml TSH (0.300-4.500) uIu/ml Free T4 (0.61-1.60) ng/dl Urine Color Urine Appearance (Clear) Urine pH (4.5-7.5) Ur Specific [place] (1.000-1.030) Urine Protein (Negative) Urine Glucose (UA) (Negative) Urine Ketones (Negative) Urine Blood (Negative) Urine Nitrite (Negative) Urine Bilirubin (Negative) Urine Urobilinogen (Negative) Ur Leukocyte Esterase (Negative) Urine WBC (Auto) Urine RBC (Auto) U Hyaline Cast (Auto) U Epithel Cells (Auto) Urine Bacteria (Auto) Ur Renal Epithelial Cell Urine Crystals Calcium Oxalate Crystal Uric Acid Crystals Triple Phos Crystals Other Crystals Amorphous Sediment Granular Casts Waxy Casts RBC Casts WBC Casts Pathogenic Casts Other Casts Urine Mucus Urine Other Urine Trichomonas Urine Yeast Urine Sperm Ur Oval Fat Bodies Ur Culture Indicated? Nasal Screen MRSA (PCR) (Negative) Random Vancomycin (10-20) mcg/ml Adenovirus (PCR) (NotDetected) B. pertussis DNA (PCR) (NotDetected) B.parapertussis DNA PCR (NotDetected) C. pneumoniae DNA (PCR) (NotDetected) Coronavirus OC43 (PCR) (NotDetected) Coronavirus HKU1 (PCR) (NotDetected) Coronavirus 229E (PCR) (NotDetected) SARS-CoV-2 (PCR) (NotDetected) Coronavirus NL63 (PCR) (NotDetected) Human Metapneumovir PCR (NotDetected) Influenza Type A (PCR) (NotDetected) Influenza Type B (PCR) (NotDetected) M. pneumoniae (PCR) (NotDetected) Parainfluenza 1 (PCR) (NotDetected) Parainfluenza 2 (PCR) (NotDetected) Parainfluenza 3 (PCR) (NotDetected) Parainfluenza 4 (PCR) (NotDetected) RSV (RT-PCR) (Neg) RSV (PCR) (NotDetected) Entero/Rhino (PCR) (NotDetected) Blood Type Blood Type Recheck Antibody Screen Crossmatch 08/28/23 08/29/23 08/30/23 Range/Units 07:17 05:54 05:39 WBC 14.95 H 13.31 H 16.01 H (4.8-10.8) K/ul RBC 3.01 L 3.03 L 3.31 L (4.70-6.10) M/uL Hgb 9.3 L 9.5 L 10.3 L (14.0-18.0) g/dl POC Hgb (14.0-18.0) g/dl Hct 29.4 L 30.1 L 31.7 L (42.0-52.0) % POC Hct (42-52) % MCV 97.7 99.3 95.8 (80.0-100.0) fL MCH 30.9 31.4 31.1 (25.0-34.0) pg MCHC 31.6 L 31.6 L 32.5 (32.0-36.0) g/dL RDW Std Deviation 48.7 H 48.3 H 47.5 H (36.4-46.3) fL RDW Coeff of Jesse 13.6 13.6 13.6 (11.5-14.5) % Plt Count 252 242 260 (130-400) K/uL MPV 9.3 L 9.6 9.3 L (9.4-12.4) fL Immature Gran % (Auto) 0.7 0.5 0.7 % Neut % (Auto) 93.6 91.4 87.3 % Lymph % (Auto) 2.3 3.6 5.2 % [place] % (Auto) 3.3 4.4 6.5 % Eos % (Auto) 0.0 0.0 0.2 % Baso % (Auto) 0.1 0.1 0.1 % Neut # (Auto) 14.00 H 12.17 H 13.95 H (1.40-6.50) K/uL Lymph # (Auto) 0.34 L 0.48 L 0.84 L (1.20-3.40) K/uL [place] # (Auto) 0.49 0.59 1.04 H (0.11-0.59) K/uL Eos # (Auto) 0.00 0.00 0.04 (0.00-0.50) K/uL Baso # (Auto) 0.02 0.01 0.02 (0.00-0.20) K/uL Immature Gran # (Auto) 0.10 0.06 0.12 (0.01-0.20) K/uL Platelet Estimate (Normal) RBC Morphology Unremarkable Unremarkable Echinocytes PT (9.0-12.0) Seconds INR (0.9-1.1) APTT (21-31) Seconds PTT Ratio D-Dimer (0-500) ug/L FEU Sample Site POC pH (7.35-7.45) POC pCO2 (35-46) mmHg POC pO2 (80-95) mmHg POC HCO3 (19-24) lachelle/L POC Total CO2 (24-31) mmol/L POC Base Excess (-9-1.8) lachelle/L ABG pH (7.35-7.45) ABG pH (Temp Correct) (7.35-7.45) ABG pCO2 (35-46) mmHg ABG pCO2 (Temp Corrct (35-46) mmHg ABG pO2 (80-95) mmHg POC ABG pO2 at Pt Temp ABG HCO3 (19-24) mmol/L POC ABG O2 Sat (90-95) % ABG O2 Saturation (90-95) % ABG Base Excess (-9-1.8) mEq/L Mikey Test (Pos) VBG pH (7.36-7.41) VBG pCO2 (38-50) mmHg VBG pO2 mmHg VBG HCO3 mmol/L VBG O2 Saturation % VBG Base Excess mEq/L Oxygen Given O2 Delivery Device POC O2 Rate POC FiO2 % Tidal Volume PEEP POC Sodium (135-144) mmol/L Sodium 141 141 140 (136-145) mmol/L POC Potassium (3.3-5.0) mmol/L Potassium 3.4 L 4.1 D 4.5 (3.5-5.1) mmol/L POC Chloride (101-112) mmol/L Chloride 107 108 H 108 H (98-107) mmol/L Carbon Dioxide 25 27 23 (21-32) mmol/L Anion Gap 9 6 9 (3-11) POC Anion Gap (16-25) mmol/L POC BUN (7-18) mg/dl BUN 53 H 40 H 36 H (6-23) mg/dl Creatinine 2.02 H D 1.67 H D 1.98 H D (0.6-1.4) mg/dl POC Creatinine (0.6-1.3) mg/dl Est Cr Clr Drug Dosing 30.4 36.5 30.8 Est GFR ( Amer) 37.1 46.7 38.0 ml/min Est GFR (Non-Af Amer) 32.0 40.3 32.8 ml/min BUN/Creatinine Ratio 26.2 H 24.0 H 18.2 (10-20) Glucose 126 H 102 H 95 (70-99(Fasting)) mg/dl POC Glucose (70-99) mg/dl POC Glucose (other) (70-99) mg/dl Lactate (0.4-2.0) mmol/L Calcium 9.1 9.0 9.2 (8.6-10.3) mg/dl POC Ioniz Calcium José Antonio (1.12-1.32) mmol/l Phosphorus (2.5-4.9) mg/dl Magnesium 1.7 1.7 (1.7-2.4) mg/dl Iron 31 L (35-175) mcg/dl TIBC 176 L (250-450) mcg/dl Unsaturated IBC 145 L (155-355) mcg/dl Transferrin % Sat 18 L (20-50) % Ferritin 197.8 (8-388) ng/ml Total Bilirubin (0.2-1.0) mg/dl Direct Bilirubin (0-0.2) mg/dl AST (13-39) U/L ALT (7-52) U/L Alkaline Phosphatase (34-104) U/L Ammonia (18-72) umol/L Troponin I High Sens (0-20) pg/ml Total Protein (6.0-8.3) gm/dl Albumin (3.4-5.0) gm/dl Globulin (2.5-4.0) gm/dl Albumin/Globulin Ratio (0.9-2) Triglycerides (0-150) mg/dl Vitamin B1 582 H (8-30) nmol/L Vitamin B12 851 (180-914) pg/ml 25-OH Vitamin D Total (30-100) ng/ml Folate > 22.30 (>5.38) ng/ml Procalcitonin (0-0.5) ng/ml TSH (0.300-4.500) uIu/ml Free T4 (0.61-1.60) ng/dl Urine Color Urine Appearance (Clear) Urine pH (4.5-7.5) Ur Specific [place] (1.000-1.030) Urine Protein (Negative) Urine Glucose (UA) (Negative) Urine Ketones (Negative) Urine Blood (Negative) Urine Nitrite (Negative) Urine Bilirubin (Negative) Urine Urobilinogen (Negative) Ur Leukocyte Esterase (Negative) Urine WBC (Auto) Urine RBC (Auto) U Hyaline Cast (Auto) U Epithel Cells (Auto) Urine Bacteria (Auto) Ur Renal Epithelial Cell Urine Crystals Calcium Oxalate Crystal Uric Acid Crystals Triple Phos Crystals Other Crystals Amorphous Sediment Granular Casts Waxy Casts RBC Casts WBC Casts Pathogenic Casts Other Casts Urine Mucus Urine Other Urine Trichomonas Urine Yeast Urine Sperm Ur Oval Fat Bodies Ur Culture Indicated? Nasal Screen MRSA (PCR) (Negative) Random Vancomycin (10-20) mcg/ml Adenovirus (PCR) (NotDetected) B. pertussis DNA (PCR) (NotDetected) B.parapertussis DNA PCR (NotDetected) C. pneumoniae DNA (PCR) (NotDetected) Coronavirus OC43 (PCR) (NotDetected) Coronavirus HKU1 (PCR) (NotDetected) Coronavirus 229E (PCR) (NotDetected) SARS-CoV-2 (PCR) (NotDetected) Coronavirus NL63 (PCR) (NotDetected) Human Metapneumovir PCR (NotDetected) Influenza Type A (PCR) (NotDetected) Influenza Type B (PCR) (NotDetected) M. pneumoniae (PCR) (NotDetected) Parainfluenza 1 (PCR) (NotDetected) Parainfluenza 2 (PCR) (NotDetected) Parainfluenza 3 (PCR) (NotDetected) Parainfluenza 4 (PCR) (NotDetected) RSV (RT-PCR) (Neg) RSV (PCR) (NotDetected) Entero/Rhino (PCR) (NotDetected) Blood Type Blood Type Recheck B Positive Antibody Screen Crossmatch 08/31/23 08/31/23 08/31/23 Range/Units 04:27 06:21 06:29 WBC 14.19 H (4.8-10.8) K/ul RBC 3.72 L (4.70-6.10) M/uL Hgb 11.6 L (14.0-18.0) g/dl POC Hgb (14.0-18.0) g/dl Hct 35.9 L (42.0-52.0) % POC Hct (42-52) % MCV 96.5 (80.0-100.0) fL MCH 31.2 (25.0-34.0) pg MCHC 32.3 (32.0-36.0) g/dL RDW Std Deviation 48.5 H (36.4-46.3) fL RDW Coeff of Jesse 13.7 (11.5-14.5) % Plt Count 397 D (130-400) K/uL MPV 9.3 L (9.4-12.4) fL Immature Gran % (Auto) % Neut % (Auto) % Lymph % (Auto) % [place] % (Auto) % Eos % (Auto) % Baso % (Auto) % Neut # (Auto) (1.40-6.50) K/uL Lymph # (Auto) (1.20-3.40) K/uL [place] # (Auto) (0.11-0.59) K/uL Eos # (Auto) (0.00-0.50) K/uL Baso # (Auto) (0.00-0.20) K/uL Immature Gran # (Auto) (0.01-0.20) K/uL Platelet Estimate (Normal) RBC Morphology Echinocytes PT (9.0-12.0) Seconds INR (0.9-1.1) APTT (21-31) Seconds PTT Ratio D-Dimer 1650 H* (0-500) ug/L FEU Sample Site POC pH (7.35-7.45) POC pCO2 (35-46) mmHg POC pO2 (80-95) mmHg POC HCO3 (19-24) lachelle/L POC Total CO2 (24-31) mmol/L POC Base Excess (-9-1.8) lachelle/L ABG pH (7.35-7.45) ABG pH (Temp Correct) (7.35-7.45) ABG pCO2 (35-46) mmHg ABG pCO2 (Temp Corrct (35-46) mmHg ABG pO2 (80-95) mmHg POC ABG pO2 at Pt Temp ABG HCO3 (19-24) mmol/L POC ABG O2 Sat (90-95) % ABG O2 Saturation (90-95) % ABG Base Excess (-9-1.8) mEq/L Mikey Test (Pos) VBG pH (7.36-7.41) VBG pCO2 (38-50) mmHg VBG pO2 mmHg VBG HCO3 mmol/L VBG O2 Saturation % VBG Base Excess mEq/L Oxygen Given O2 Delivery Device POC O2 Rate POC FiO2 % Tidal Volume PEEP POC Sodium (135-144) mmol/L Sodium 142 (136-145) mmol/L POC Potassium (3.3-5.0) mmol/L Potassium 4.4 (3.5-5.1) mmol/L POC Chloride (101-112) mmol/L Chloride 111 H (98-107) mmol/L Carbon Dioxide 22 (21-32) mmol/L Anion Gap 9 (3-11) POC Anion Gap (16-25) mmol/L POC BUN (7-18) mg/dl BUN 35 H (6-23) mg/dl Creatinine 2.18 H (0.6-1.4) mg/dl POC Creatinine (0.6-1.3) mg/dl Est Cr Clr Drug Dosing 28.0 Est GFR ( Amer) 33.8 ml/min Est GFR (Non-Af Amer) 29.2 ml/min BUN/Creatinine Ratio 16.1 (10-20) Glucose 76 (70-99(Fasting)) mg/dl POC Glucose (70-99) mg/dl POC Glucose (other) (70-99) mg/dl Lactate 2.6 H* 2.7 H* (0.4-2.0) mmol/L Calcium 9.3 (8.6-10.3) mg/dl POC Ioniz Calcium [place] (1.12-1.32) mmol/l Phosphorus (2.5-4.9) mg/dl Magnesium (1.7-2.4) mg/dl Iron (35-175) mcg/dl TIBC (250-450) mcg/dl Unsaturated IBC (155-355) mcg/dl Transferrin % Sat (20-50) % Ferritin (8-388) ng/ml Total Bilirubin (0.2-1.0) mg/dl Direct Bilirubin (0-0.2) mg/dl AST (13-39) U/L ALT (7-52) U/L Alkaline Phosphatase (34-104) U/L Ammonia (18-72) umol/L Troponin I High Sens (0-20) pg/ml Total Protein (6.0-8.3) gm/dl Albumin (3.4-5.0) gm/dl Globulin (2.5-4.0) gm/dl Albumin/Globulin Ratio (0.9-2) Triglycerides (0-150) mg/dl Vitamin B1 (8-30) nmol/L Vitamin B12 (180-914) pg/ml 25-OH Vitamin D Total (30-100) ng/ml Folate (>5.38) ng/ml Procalcitonin 0.62 H (0-0.5) ng/ml TSH (0.300-4.500) uIu/ml Free T4 (0.61-1.60) ng/dl Urine Color Urine Appearance (Clear) Urine pH (4.5-7.5) Ur Specific [place] (1.000-1.030) Urine Protein (Negative) Urine Glucose (UA) (Negative) Urine Ketones (Negative) Urine Blood (Negative) Urine Nitrite (Negative) Urine Bilirubin (Negative) Urine Urobilinogen (Negative) Ur Leukocyte Esterase (Negative) Urine WBC (Auto) Urine RBC (Auto) U Hyaline Cast (Auto) U Epithel Cells (Auto) Urine Bacteria (Auto) Ur Renal Epithelial Cell Urine Crystals Calcium Oxalate Crystal Uric Acid Crystals Triple Phos Crystals Other Crystals Amorphous Sediment Granular Casts Waxy Casts RBC Casts WBC Casts Pathogenic Casts Other Casts Urine Mucus Urine Other Urine Trichomonas Urine Yeast Urine Sperm Ur Oval Fat Bodies Ur Culture Indicated? Nasal Screen MRSA (PCR) (Negative) Random Vancomycin (10-20) mcg/ml Adenovirus (PCR) (NotDetected) B. pertussis DNA (PCR) (NotDetected) B.parapertussis DNA PCR (NotDetected) C. pneumoniae DNA (PCR) (NotDetected) Coronavirus OC43 (PCR) (NotDetected) Coronavirus HKU1 (PCR) (NotDetected) Coronavirus 229E (PCR) (NotDetected) SARS-CoV-2 (PCR) (NotDetected) Coronavirus NL63 (PCR) (NotDetected) Human Metapneumovir PCR (NotDetected) Influenza Type A (PCR) (NotDetected) Influenza Type B (PCR) (NotDetected) M. pneumoniae (PCR) (NotDetected) Parainfluenza 1 (PCR) (NotDetected) Parainfluenza 2 (PCR) (NotDetected) Parainfluenza 3 (PCR) (NotDetected) Parainfluenza 4 (PCR) (NotDetected) RSV (RT-PCR) (Neg) RSV (PCR) (NotDetected) Entero/Rhino (PCR) (NotDetected) Blood Type B Positive Blood Type Recheck Antibody Screen NEGATIVE Crossmatch See Detail 08/31/23 08/31/23 08/31/23 Range/Units 07:54 10:30 17:13 WBC (4.8-10.8) K/ul RBC (4.70-6.10) M/uL Hgb (14.0-18.0) g/dl POC Hgb (14.0-18.0) g/dl Hct (42.0-52.0) % POC Hct (42-52) % MCV (80.0-100.0) fL MCH (25.0-34.0) pg MCHC (32.0-36.0) g/dL RDW Std Deviation (36.4-46.3) fL RDW Coeff of Jesse (11.5-14.5) % Plt Count (130-400) K/uL MPV (9.4-12.4) fL Immature Gran % (Auto) % Neut % (Auto) % Lymph % (Auto) % [place] % (Auto) % Eos % (Auto) % Baso % (Auto) % Neut # (Auto) (1.40-6.50) K/uL Lymph # (Auto) (1.20-3.40) K/uL [place] # (Auto) (0.11-0.59) K/uL Eos # (Auto) (0.00-0.50) K/uL Baso # (Auto) (0.00-0.20) K/uL Immature Gran # (Auto) (0.01-0.20) K/uL Platelet Estimate (Normal) RBC Morphology Echinocytes PT (9.0-12.0) Seconds INR (0.9-1.1) APTT (21-31) Seconds PTT Ratio D-Dimer (0-500) ug/L FEU Sample Site POC pH (7.35-7.45) POC pCO2 (35-46) mmHg POC pO2 (80-95) mmHg POC HCO3 (19-24) lachelle/L POC Total CO2 (24-31) mmol/L POC Base Excess (-9-1.8) lachelle/L ABG pH (7.35-7.45) ABG pH (Temp Correct) (7.35-7.45) ABG pCO2 (35-46) mmHg ABG pCO2 (Temp Corrct (35-46) mmHg ABG pO2 (80-95) mmHg POC ABG pO2 at Pt Temp ABG HCO3 (19-24) mmol/L POC ABG O2 Sat (90-95) % ABG O2 Saturation (90-95) % ABG Base Excess (-9-1.8) mEq/L Mikey Test (Pos) VBG pH (7.36-7.41) VBG pCO2 (38-50) mmHg VBG pO2 mmHg VBG HCO3 mmol/L VBG O2 Saturation % VBG Base Excess mEq/L Oxygen Given O2 Delivery Device POC O2 Rate POC FiO2 % Tidal Volume PEEP POC Sodium (135-144) mmol/L Sodium (136-145) mmol/L POC Potassium (3.3-5.0) mmol/L Potassium (3.5-5.1) mmol/L POC Chloride (101-112) mmol/L Chloride (98-107) mmol/L Carbon Dioxide (21-32) mmol/L Anion Gap (3-11) POC Anion Gap (16-25) mmol/L POC BUN (7-18) mg/dl BUN (6-23) mg/dl Creatinine (0.6-1.4) mg/dl POC Creatinine (0.6-1.3) mg/dl Est Cr Clr Drug Dosing Est GFR ( Amer) ml/min Est GFR (Non-Af Amer) ml/min BUN/Creatinine Ratio (10-20) Glucose (70-99(Fasting)) mg/dl POC Glucose 90 82 126 H (70-99) mg/dl POC Glucose (other) (70-99) mg/dl Lactate (0.4-2.0) mmol/L Calcium (8.6-10.3) mg/dl POC Ioniz Calcium [place] (1.12-1.32) mmol/l Phosphorus (2.5-4.9) mg/dl Magnesium (1.7-2.4) mg/dl Iron (35-175) mcg/dl TIBC (250-450) mcg/dl Unsaturated IBC (155-355) mcg/dl Transferrin % Sat (20-50) % Ferritin (8-388) ng/ml Total Bilirubin (0.2-1.0) mg/dl Direct Bilirubin (0-0.2) mg/dl AST (13-39) U/L ALT (7-52) U/L Alkaline Phosphatase (34-104) U/L Ammonia (18-72) umol/L Troponin I High Sens (0-20) pg/ml Total Protein (6.0-8.3) gm/dl Albumin (3.4-5.0) gm/dl Globulin (2.5-4.0) gm/dl Albumin/Globulin Ratio (0.9-2) Triglycerides (0-150) mg/dl Vitamin B1 (8-30) nmol/L Vitamin B12 (180-914) pg/ml 25-OH Vitamin D Total (30-100) ng/ml Folate (>5.38) ng/ml Procalcitonin (0-0.5) ng/ml TSH (0.300-4.500) uIu/ml Free T4 (0.61-1.60) ng/dl Urine Color Urine Appearance (Clear) Urine pH (4.5-7.5) Ur Specific [place] (1.000-1.030) Urine Protein (Negative) Urine Glucose (UA) (Negative) Urine Ketones (Negative) Urine Blood (Negative) Urine Nitrite (Negative) Urine Bilirubin (Negative) Urine Urobilinogen (Negative) Ur Leukocyte Esterase (Negative) Urine WBC (Auto) Urine RBC (Auto) U Hyaline Cast (Auto) U Epithel Cells (Auto) Urine Bacteria (Auto) Ur Renal Epithelial Cell Urine Crystals Calcium Oxalate Crystal Uric Acid Crystals Triple Phos Crystals Other Crystals Amorphous Sediment Granular Casts Waxy Casts RBC Casts WBC Casts Pathogenic Casts Other Casts Urine Mucus Urine Other Urine Trichomonas Urine Yeast Urine Sperm Ur Oval Fat Bodies Ur Culture Indicated? Nasal Screen MRSA (PCR) (Negative) Random Vancomycin (10-20) mcg/ml Adenovirus (PCR) (NotDetected) B. pertussis DNA (PCR) (NotDetected) B.parapertussis DNA PCR (NotDetected) C. pneumoniae DNA (PCR) (NotDetected) Coronavirus OC43 (PCR) (NotDetected) Coronavirus HKU1 (PCR) (NotDetected) Coronavirus 229E (PCR) (NotDetected) SARS-CoV-2 (PCR) (NotDetected) Coronavirus NL63 (PCR) (NotDetected) Human Metapneumovir PCR (NotDetected) Influenza Type A (PCR) (NotDetected) Influenza Type B (PCR) (NotDetected) M. pneumoniae (PCR) (NotDetected) Parainfluenza 1 (PCR) (NotDetected) Parainfluenza 2 (PCR) (NotDetected) Parainfluenza 3 (PCR) (NotDetected) Parainfluenza 4 (PCR) (NotDetected) RSV (RT-PCR) (Neg) RSV (PCR) (NotDetected) Entero/Rhino (PCR) (NotDetected) Blood Type Blood Type Recheck Antibody Screen Crossmatch 09/01/23 09/01/23 09/01/23 Range/Units 03:51 04:23 08:19 WBC 14.36 H (4.8-10.8) K/ul RBC 2.96 L (4.70-6.10) M/uL Hgb 9.2 L (14.0-18.0) g/dl POC Hgb 8.5 L (14.0-18.0) g/dl Hct 28.7 L (42.0-52.0) % POC Hct 25 L (42-52) % MCV 97.0 (80.0-100.0) fL MCH 31.1 (25.0-34.0) pg MCHC 32.1 (32.0-36.0) g/dL RDW Std Deviation 49.2 H (36.4-46.3) fL RDW Coeff of Jesse 14.2 (11.5-14.5) % Plt Count 190 D (130-400) K/uL MPV 9.5 (9.4-12.4) fL Immature Gran % (Auto) 0.6 % Neut % (Auto) 94.1 % Lymph % (Auto) 2.2 % [place] % (Auto) 2.9 % Eos % (Auto) 0.0 % Baso % (Auto) 0.2 % Neut # (Auto) 13.51 H (1.40-6.50) K/uL Lymph # (Auto) 0.32 L (1.20-3.40) K/uL [place] # (Auto) 0.41 (0.11-0.59) K/uL Eos # (Auto) 0.00 (0.00-0.50) K/uL Baso # (Auto) 0.03 (0.00-0.20) K/uL Immature Gran # (Auto) 0.09 (0.01-0.20) K/uL Platelet Estimate Normal (Normal) RBC Morphology Echinocytes PT (9.0-12.0) Seconds INR (0.9-1.1) APTT (21-31) Seconds PTT Ratio D-Dimer (0-500) ug/L FEU Sample Site Art Line POC pH 7.43 (7.35-7.45) POC pCO2 26 L (35-46) mmHg POC pO2 78 L (80-95) mmHg POC HCO3 18 L (19-24) lachelle/L POC Total CO2 18 L (24-31) mmol/L POC Base Excess -7.0 (-9-1.8) lachelle/L ABG pH (7.35-7.45) ABG pH (Temp Correct) 7.417 (7.35-7.45) ABG pCO2 (35-46) mmHg ABG pCO2 (Temp Corrct 28 L (35-46) mmHg ABG pO2 (80-95) mmHg POC ABG pO2 at Pt Temp 84 ABG HCO3 (19-24) mmol/L POC ABG O2 Sat 96.0 H (90-95) % ABG O2 Saturation (90-95) % ABG Base Excess (-9-1.8) mEq/L Mikey Test NA (Pos) VBG pH (7.36-7.41) VBG pCO2 (38-50) mmHg VBG pO2 mmHg VBG HCO3 mmol/L VBG O2 Saturation % VBG Base Excess mEq/L Oxygen Given O2 Delivery Device Ventilator POC O2 Rate 18 POC FiO2 35 % Tidal Volume 400 PEEP 5 POC Sodium 138 (135-144) mmol/L Sodium 137 (136-145) mmol/L POC Potassium 4.4 (3.3-5.0) mmol/L Potassium 4.3 (3.5-5.1) mmol/L POC Chloride (101-112) mmol/L Chloride 109 H (98-107) mmol/L Carbon Dioxide 19 L (21-32) mmol/L Anion Gap 9 (3-11) POC Anion Gap (16-25) mmol/L POC BUN (7-18) mg/dl BUN 36 H (6-23) mg/dl Creatinine 2.24 H (0.6-1.4) mg/dl POC Creatinine (0.6-1.3) mg/dl Est Cr Clr Drug Dosing 27.0 Est GFR ( Amer) 32.7 ml/min Est GFR (Non-Af Amer) 28.2 ml/min BUN/Creatinine Ratio 16.1 (10-20) Glucose 121 H (70-99(Fasting)) mg/dl POC Glucose 140 H (70-99) mg/dl POC Glucose (other) (70-99) mg/dl Lactate (0.4-2.0) mmol/L Calcium 7.6 L (8.6-10.3) mg/dl POC Ioniz Calcium [place] (1.12-1.32) mmol/l Phosphorus (2.5-4.9) mg/dl Magnesium (1.7-2.4) mg/dl Iron (35-175) mcg/dl TIBC (250-450) mcg/dl Unsaturated IBC (155-355) mcg/dl Transferrin % Sat (20-50) % Ferritin (8-388) ng/ml Total Bilirubin 0.4 (0.2-1.0) mg/dl Direct Bilirubin (0-0.2) mg/dl AST 15 (13-39) U/L ALT 22 (7-52) U/L Alkaline Phosphatase 107 H (34-104) U/L Ammonia (18-72) umol/L Troponin I High Sens (0-20) pg/ml Total Protein 4.5 L (6.0-8.3) gm/dl Albumin 2.5 L (3.4-5.0) gm/dl Globulin 2.0 L (2.5-4.0) gm/dl Albumin/Globulin Ratio 1.3 (0.9-2) Triglycerides (0-150) mg/dl Vitamin B1 (8-30) nmol/L Vitamin B12 (180-914) pg/ml 25-OH Vitamin D Total (30-100) ng/ml Folate (>5.38) ng/ml Procalcitonin (0-0.5) ng/ml TSH (0.300-4.500) uIu/ml Free T4 (0.61-1.60) ng/dl Urine Color Urine Appearance (Clear) Urine pH (4.5-7.5) Ur Specific [place] (1.000-1.030) Urine Protein (Negative) Urine Glucose (UA) (Negative) Urine Ketones (Negative) Urine Blood (Negative) Urine Nitrite (Negative) Urine Bilirubin (Negative) Urine Urobilinogen (Negative) Ur Leukocyte Esterase (Negative) Urine WBC (Auto) Urine RBC (Auto) U Hyaline Cast (Auto) U Epithel Cells (Auto) Urine Bacteria (Auto) Ur Renal Epithelial Cell Urine Crystals Calcium Oxalate Crystal Uric Acid Crystals Triple Phos Crystals Other Crystals Amorphous Sediment Granular Casts Waxy Casts RBC Casts WBC Casts Pathogenic Casts Other Casts Urine Mucus Urine Other Urine Trichomonas Urine Yeast Urine Sperm Ur Oval Fat Bodies Ur Culture Indicated? Nasal Screen MRSA (PCR) (Negative) Random Vancomycin 10.5 (10-20) mcg/ml Adenovirus (PCR) (NotDetected) B. pertussis DNA (PCR) (NotDetected) B.parapertussis DNA PCR (NotDetected) C. pneumoniae DNA (PCR) (NotDetected) Coronavirus OC43 (PCR) (NotDetected) Coronavirus HKU1 (PCR) (NotDetected) Coronavirus 229E (PCR) (NotDetected) SARS-CoV-2 (PCR) (NotDetected) Coronavirus NL63 (PCR) (NotDetected) Human Metapneumovir PCR (NotDetected) Influenza Type A (PCR) (NotDetected) Influenza Type B (PCR) (NotDetected) M. pneumoniae (PCR) (NotDetected) Parainfluenza 1 (PCR) (NotDetected) Parainfluenza 2 (PCR) (NotDetected) Parainfluenza 3 (PCR) (NotDetected) Parainfluenza 4 (PCR) (NotDetected) RSV (RT-PCR) (Neg) RSV (PCR) (NotDetected) Entero/Rhino (PCR) (NotDetected) Blood Type Blood Type Recheck Antibody Screen Crossmatch 09/01/23 09/01/23 09/01/23 Range/Units 11:31 12:11 16:25 WBC (4.8-10.8) K/ul RBC (4.70-6.10) M/uL Hgb 9.4 L (14.0-18.0) g/dl POC Hgb (14.0-18.0) g/dl Hct 28.4 L (42.0-52.0) % POC Hct (42-52) % MCV (80.0-100.0) fL MCH (25.0-34.0) pg MCHC (32.0-36.0) g/dL RDW Std Deviation (36.4-46.3) fL RDW Coeff of Jesse (11.5-14.5) % Plt Count (130-400) K/uL MPV (9.4-12.4) fL Immature Gran % (Auto) % Neut % (Auto) % Lymph % (Auto) % [place] % (Auto) % Eos % (Auto) % Baso % (Auto) % Neut # (Auto) (1.40-6.50) K/uL Lymph # (Auto) (1.20-3.40) K/uL [place] # (Auto) (0.11-0.59) K/uL Eos # (Auto) (0.00-0.50) K/uL Baso # (Auto) (0.00-0.20) K/uL Immature Gran # (Auto) (0.01-0.20) K/uL Platelet Estimate (Normal) RBC Morphology Echinocytes PT (9.0-12.0) Seconds INR (0.9-1.1) APTT (21-31) Seconds PTT Ratio D-Dimer (0-500) ug/L FEU Sample Site POC pH (7.35-7.45) POC pCO2 (35-46) mmHg POC pO2 (80-95) mmHg POC HCO3 (19-24) lachelle/L POC Total CO2 (24-31) mmol/L POC Base Excess (-9-1.8) lachelle/L ABG pH (7.35-7.45) ABG pH (Temp Correct) (7.35-7.45) ABG pCO2 (35-46) mmHg ABG pCO2 (Temp Corrct (35-46) mmHg ABG pO2 (80-95) mmHg POC ABG pO2 at Pt Temp ABG HCO3 (19-24) mmol/L POC ABG O2 Sat (90-95) % ABG O2 Saturation (90-95) % ABG Base Excess (-9-1.8) mEq/L Mikey Test (Pos) VBG pH (7.36-7.41) VBG pCO2 (38-50) mmHg VBG pO2 mmHg VBG HCO3 mmol/L VBG O2 Saturation % VBG Base Excess mEq/L Oxygen Given O2 Delivery Device POC O2 Rate POC FiO2 % Tidal Volume PEEP POC Sodium (135-144) mmol/L Sodium (136-145) mmol/L POC Potassium (3.3-5.0) mmol/L Potassium (3.5-5.1) mmol/L POC Chloride (101-112) mmol/L Chloride (98-107) mmol/L Carbon Dioxide (21-32) mmol/L Anion Gap (3-11) POC Anion Gap (16-25) mmol/L POC BUN (7-18) mg/dl BUN (6-23) mg/dl Creatinine (0.6-1.4) mg/dl POC Creatinine (0.6-1.3) mg/dl Est Cr Clr Drug Dosing Est GFR ( Amer) ml/min Est GFR (Non-Af Amer) ml/min BUN/Creatinine Ratio (10-20) Glucose (70-99(Fasting)) mg/dl POC Glucose 133 H 103 H (70-99) mg/dl POC Glucose (other) (70-99) mg/dl Lactate (0.4-2.0) mmol/L Calcium (8.6-10.3) mg/dl POC Ioniz Calcium [place] (1.12-1.32) mmol/l Phosphorus (2.5-4.9) mg/dl Magnesium (1.7-2.4) mg/dl Iron (35-175) mcg/dl TIBC (250-450) mcg/dl Unsaturated IBC (155-355) mcg/dl Transferrin % Sat (20-50) % Ferritin (8-388) ng/ml Total Bilirubin (0.2-1.0) mg/dl Direct Bilirubin (0-0.2) mg/dl AST (13-39) U/L ALT (7-52) U/L Alkaline Phosphatase (34-104) U/L Ammonia (18-72) umol/L Troponin I High Sens (0-20) pg/ml Total Protein (6.0-8.3) gm/dl Albumin (3.4-5.0) gm/dl Globulin (2.5-4.0) gm/dl Albumin/Globulin Ratio (0.9-2) Triglycerides (0-150) mg/dl Vitamin B1 (8-30) nmol/L Vitamin B12 (180-914) pg/ml 25-OH Vitamin D Total (30-100) ng/ml Folate (>5.38) ng/ml Procalcitonin (0-0.5) ng/ml TSH (0.300-4.500) uIu/ml Free T4 (0.61-1.60) ng/dl Urine Color Urine Appearance (Clear) Urine pH (4.5-7.5) Ur Specific [place] (1.000-1.030) Urine Protein (Negative) Urine Glucose (UA) (Negative) Urine Ketones (Negative) Urine Blood (Negative) Urine Nitrite (Negative) Urine Bilirubin (Negative) Urine Urobilinogen (Negative) Ur Leukocyte Esterase (Negative) Urine WBC (Auto) Urine RBC (Auto) U Hyaline Cast (Auto) U Epithel Cells (Auto) Urine Bacteria (Auto) Ur Renal Epithelial Cell Urine Crystals Calcium Oxalate Crystal Uric Acid Crystals Triple Phos Crystals Other Crystals Amorphous Sediment Granular Casts Waxy Casts RBC Casts WBC Casts Pathogenic Casts Other Casts Urine Mucus Urine Other Urine Trichomonas Urine Yeast Urine Sperm Ur Oval Fat Bodies Ur Culture Indicated? Nasal Screen MRSA (PCR) (Negative) Random Vancomycin (10-20) mcg/ml Adenovirus (PCR) (NotDetected) B. pertussis DNA (PCR) (NotDetected) B.parapertussis DNA PCR (NotDetected) C. pneumoniae DNA (PCR) (NotDetected) Coronavirus OC43 (PCR) (NotDetected) Coronavirus HKU1 (PCR) (NotDetected) Coronavirus 229E (PCR) (NotDetected) SARS-CoV-2 (PCR) (NotDetected) Coronavirus NL63 (PCR) (NotDetected) Human Metapneumovir PCR (NotDetected) Influenza Type A (PCR) (NotDetected) Influenza Type B (PCR) (NotDetected) M. pneumoniae (PCR) (NotDetected) Parainfluenza 1 (PCR) (NotDetected) Parainfluenza 2 (PCR) (NotDetected) Parainfluenza 3 (PCR) (NotDetected) Parainfluenza 4 (PCR) (NotDetected) RSV (RT-PCR) (Neg) RSV (PCR) (NotDetected) Entero/Rhino (PCR) (NotDetected) Blood Type Blood Type Recheck Antibody Screen Crossmatch 09/02/23 09/03/23 09/04/23 Range/Units 04:55 10:31 08:07 WBC 20.22 H (4.8-10.8) K/ul RBC 3.05 L (4.70-6.10) M/uL Hgb 9.5 L (14.0-18.0) g/dl POC Hgb (14.0-18.0) g/dl Hct 29.1 L (42.0-52.0) % POC Hct (42-52) % MCV 95.4 (80.0-100.0) fL MCH 31.1 (25.0-34.0) pg MCHC 32.6 (32.0-36.0) g/dL RDW Std Deviation 49.0 H (36.4-46.3) fL RDW Coeff of Jesse 14.1 (11.5-14.5) % Plt Count 194 (130-400) K/uL MPV 9.5 (9.4-12.4) fL Immature Gran % (Auto) 3.3 % Neut % (Auto) 91.6 % Lymph % (Auto) 1.7 % [place] % (Auto) 3.3 % Eos % (Auto) 0.0 % Baso % (Auto) 0.1 % Neut # (Auto) 18.50 H (1.40-6.50) K/uL Lymph # (Auto) 0.35 L (1.20-3.40) K/uL [place] # (Auto) 0.67 H (0.11-0.59) K/uL Eos # (Auto) 0.01 (0.00-0.50) K/uL Baso # (Auto) 0.02 (0.00-0.20) K/uL Immature Gran # (Auto) 0.67 H (0.01-0.20) K/uL Platelet Estimate (Normal) RBC Morphology Echinocytes 1+ PT (9.0-12.0) Seconds INR (0.9-1.1) APTT (21-31) Seconds PTT Ratio D-Dimer (0-500) ug/L FEU Sample Site POC pH (7.35-7.45) POC pCO2 (35-46) mmHg POC pO2 (80-95) mmHg POC HCO3 (19-24) lachelle/L POC Total CO2 (24-31) mmol/L POC Base Excess (-9-1.8) lachelle/L ABG pH (7.35-7.45) ABG pH (Temp Correct) (7.35-7.45) ABG pCO2 (35-46) mmHg ABG pCO2 (Temp Corrct (35-46) mmHg ABG pO2 (80-95) mmHg POC ABG pO2 at Pt Temp ABG HCO3 (19-24) mmol/L POC ABG O2 Sat (90-95) % ABG O2 Saturation (90-95) % ABG Base Excess (-9-1.8) mEq/L Mikey Test (Pos) VBG pH 7.30 L (7.36-7.41) VBG pCO2 42 (38-50) mmHg VBG pO2 25 mmHg VBG HCO3 21 mmol/L VBG O2 Saturation < 60.0 % VBG Base Excess -5.5 mEq/L Oxygen Given O2 Delivery Device POC O2 Rate POC FiO2 % Tidal Volume PEEP POC Sodium (135-144) mmol/L Sodium 137 137 143 (136-145) mmol/L POC Potassium (3.3-5.0) mmol/L Potassium 4.7 5.0 4.9 (3.5-5.1) mmol/L POC Chloride (101-112) mmol/L Chloride 110 H 111 H 113 H (98-107) mmol/L Carbon Dioxide 18 L 20 L 23 (21-32) mmol/L Anion Gap 9 6 7 (3-11) POC Anion Gap (16-25) mmol/L POC BUN (7-18) mg/dl BUN 35 H 26 H 26 H (6-23) mg/dl Creatinine 1.93 H D 1.36 D 1.27 (0.6-1.4) mg/dl POC Creatinine (0.6-1.3) mg/dl Est Cr Clr Drug Dosing 32.3 45.9 49.2 Est GFR ( Amer) 39.2 59.8 65.0 ml/min Est GFR (Non-Af Amer) 33.8 51.6 56.1 ml/min BUN/Creatinine Ratio 18.1 19.1 20.5 H (10-20) Glucose 132 H 71 65 L (70-99(Fasting)) mg/dl POC Glucose (70-99) mg/dl POC Glucose (other) (70-99) mg/dl Lactate (0.4-2.0) mmol/L Calcium 7.9 L 8.5 L 8.5 L (8.6-10.3) mg/dl POC Ioniz Calcium José Antonio (1.12-1.32) mmol/l Phosphorus 3.9 3.2 4.5 D (2.5-4.9) mg/dl Magnesium 1.4 L 1.9 1.8 (1.7-2.4) mg/dl Iron (35-175) mcg/dl TIBC (250-450) mcg/dl Unsaturated IBC (155-355) mcg/dl Transferrin % Sat (20-50) % Ferritin (8-388) ng/ml Total Bilirubin (0.2-1.0) mg/dl Direct Bilirubin (0-0.2) mg/dl AST (13-39) U/L ALT (7-52) U/L Alkaline Phosphatase (34-104) U/L Ammonia (18-72) umol/L Troponin I High Sens (0-20) pg/ml Total Protein (6.0-8.3) gm/dl Albumin (3.4-5.0) gm/dl Globulin (2.5-4.0) gm/dl Albumin/Globulin Ratio (0.9-2) Triglycerides (0-150) mg/dl Vitamin B1 (8-30) nmol/L Vitamin B12 (180-914) pg/ml 25-OH Vitamin D Total (30-100) ng/ml Folate (>5.38) ng/ml Procalcitonin (0-0.5) ng/ml TSH (0.300-4.500) uIu/ml Free T4 (0.61-1.60) ng/dl Urine Color Urine Appearance (Clear) Urine pH (4.5-7.5) Ur Specific [place] (1.000-1.030) Urine Protein (Negative) Urine Glucose (UA) (Negative) Urine Ketones (Negative) Urine Blood (Negative) Urine Nitrite (Negative) Urine Bilirubin (Negative) Urine Urobilinogen (Negative) Ur Leukocyte Esterase (Negative) Urine WBC (Auto) Urine RBC (Auto) U Hyaline Cast (Auto) U Epithel Cells (Auto) Urine Bacteria (Auto) Ur Renal Epithelial Cell Urine Crystals Calcium Oxalate Crystal Uric Acid Crystals Triple Phos Crystals Other Crystals Amorphous Sediment Granular Casts Waxy Casts RBC Casts WBC Casts Pathogenic Casts Other Casts Urine Mucus Urine Other Urine Trichomonas Urine Yeast Urine Sperm Ur Oval Fat Bodies Ur Culture Indicated? Nasal Screen MRSA (PCR) (Negative) Random Vancomycin (10-20) mcg/ml Adenovirus (PCR) (NotDetected) B. pertussis DNA (PCR) (NotDetected) B.parapertussis DNA PCR (NotDetected) C. pneumoniae DNA (PCR) (NotDetected) Coronavirus OC43 (PCR) (NotDetected) Coronavirus HKU1 (PCR) (NotDetected) Coronavirus 229E (PCR) (NotDetected) SARS-CoV-2 (PCR) (NotDetected) Coronavirus NL63 (PCR) (NotDetected) Human Metapneumovir PCR (NotDetected) Influenza Type A (PCR) (NotDetected) Influenza Type B (PCR) (NotDetected) M. pneumoniae (PCR) (NotDetected) Parainfluenza 1 (PCR) (NotDetected) Parainfluenza 2 (PCR) (NotDetected) Parainfluenza 3 (PCR) (NotDetected) Parainfluenza 4 (PCR) (NotDetected) RSV (RT-PCR) (Neg) RSV (PCR) (NotDetected) Entero/Rhino (PCR) (NotDetected) Blood Type Blood Type Recheck Antibody Screen Crossmatch 09/05/23 09/05/23 09/06/23 Range/Units 03:20 06:29 05:44 WBC 12.11 H (4.8-10.8) K/ul RBC 2.91 L (4.70-6.10) M/uL Hgb 9.1 L (14.0-18.0) g/dl POC Hgb (14.0-18.0) g/dl Hct 28.5 L (42.0-52.0) % POC Hct (42-52) % MCV 97.9 (80.0-100.0) fL MCH 31.3 (25.0-34.0) pg MCHC 31.9 L (32.0-36.0) g/dL RDW Std Deviation 48.7 H (36.4-46.3) fL RDW Coeff of Jesse 13.6 (11.5-14.5) % Plt Count 138 (130-400) K/uL MPV 9.0 L (9.4-12.4) fL Immature Gran % (Auto) % Neut % (Auto) % Lymph % (Auto) % [place] % (Auto) % Eos % (Auto) % Baso % (Auto) % Neut # (Auto) (1.40-6.50) K/uL Lymph # (Auto) (1.20-3.40) K/uL [place] # (Auto) (0.11-0.59) K/uL Eos # (Auto) (0.00-0.50) K/uL Baso # (Auto) (0.00-0.20) K/uL Immature Gran # (Auto) (0.01-0.20) K/uL Platelet Estimate (Normal) RBC Morphology Echinocytes PT (9.0-12.0) Seconds INR (0.9-1.1) APTT (21-31) Seconds PTT Ratio D-Dimer (0-500) ug/L FEU Sample Site POC pH (7.35-7.45) POC pCO2 (35-46) mmHg POC pO2 (80-95) mmHg POC HCO3 (19-24) lachelle/L POC Total CO2 (24-31) mmol/L POC Base Excess (-9-1.8) lachelle/L ABG pH 7.24 L 7.29 L (7.35-7.45) ABG pH (Temp Correct) (7.35-7.45) ABG pCO2 53 H 49 H (35-46) mmHg ABG pCO2 (Temp Corrct (35-46) mmHg ABG pO2 139 H 150 H (80-95) mmHg POC ABG pO2 at Pt Temp ABG HCO3 23 24 (19-24) mmol/L POC ABG O2 Sat (90-95) % ABG O2 Saturation 98.9 H 98.7 H (90-95) % ABG Base Excess -5.2 -3.4 (-9-1.8) mEq/L Mikey Test Pos Pos (Pos) VBG pH (7.36-7.41) VBG pCO2 (38-50) mmHg VBG pO2 mmHg VBG HCO3 mmol/L VBG O2 Saturation % VBG Base Excess mEq/L Oxygen Given 5L 5L O2 Delivery Device POC O2 Rate POC FiO2 % Tidal Volume PEEP POC Sodium (135-144) mmol/L Sodium 139 141 (136-145) mmol/L POC Potassium (3.3-5.0) mmol/L Potassium 4.7 4.5 (3.5-5.1) mmol/L POC Chloride (101-112) mmol/L Chloride 110 H 110 H (98-107) mmol/L Carbon Dioxide 24 26 (21-32) mmol/L Anion Gap 5 5 (3-11) POC Anion Gap (16-25) mmol/L POC BUN (7-18) mg/dl BUN 23 20 (6-23) mg/dl Creatinine 1.09 0.85 (0.6-1.4) mg/dl POC Creatinine (0.6-1.3) mg/dl Est Cr Clr Drug Dosing 57.3 73.4 Est GFR ( Amer) 78.2 100.9 ml/min Est GFR (Non-Af Amer) 67.5 87.1 ml/min BUN/Creatinine Ratio 21.1 H 23.5 H (10-20) Glucose 130 H 76 (70-99(Fasting)) mg/dl POC Glucose (70-99) mg/dl POC Glucose (other) (70-99) mg/dl Lactate (0.4-2.0) mmol/L Calcium 8.3 L 7.8 L (8.6-10.3) mg/dl POC Ioniz Calcium [place] (1.12-1.32) mmol/l Phosphorus (2.5-4.9) mg/dl Magnesium 1.5 L 1.6 L (1.7-2.4) mg/dl Iron (35-175) mcg/dl TIBC (250-450) mcg/dl Unsaturated IBC (155-355) mcg/dl Transferrin % Sat (20-50) % Ferritin (8-388) ng/ml Total Bilirubin (0.2-1.0) mg/dl Direct Bilirubin (0-0.2) mg/dl AST (13-39) U/L ALT (7-52) U/L Alkaline Phosphatase (34-104) U/L Ammonia (18-72) umol/L Troponin I High Sens (0-20) pg/ml Total Protein (6.0-8.3) gm/dl Albumin (3.4-5.0) gm/dl Globulin (2.5-4.0) gm/dl Albumin/Globulin Ratio (0.9-2) Triglycerides (0-150) mg/dl Vitamin B1 (8-30) nmol/L Vitamin B12 (180-914) pg/ml 25-OH Vitamin D Total (30-100) ng/ml Folate (>5.38) ng/ml Procalcitonin (0-0.5) ng/ml TSH (0.300-4.500) uIu/ml Free T4 (0.61-1.60) ng/dl Urine Color Urine Appearance (Clear) Urine pH (4.5-7.5) Ur Specific [place] (1.000-1.030) Urine Protein (Negative) Urine Glucose (UA) (Negative) Urine Ketones (Negative) Urine Blood (Negative) Urine Nitrite (Negative) Urine Bilirubin (Negative) Urine Urobilinogen (Negative) Ur Leukocyte Esterase (Negative) Urine WBC (Auto) Urine RBC (Auto) U Hyaline Cast (Auto) U Epithel Cells (Auto) Urine Bacteria (Auto) Ur Renal Epithelial Cell Urine Crystals Calcium Oxalate Crystal Uric Acid Crystals Triple Phos Crystals Other Crystals Amorphous Sediment Granular Casts Waxy Casts RBC Casts WBC Casts Pathogenic Casts Other Casts Urine Mucus Urine Other Urine Trichomonas Urine Yeast Urine Sperm Ur Oval Fat Bodies Ur Culture Indicated? Nasal Screen MRSA (PCR) (Negative) Random Vancomycin (10-20) mcg/ml Adenovirus (PCR) (NotDetected) B. pertussis DNA (PCR) (NotDetected) B.parapertussis DNA PCR (NotDetected) C. pneumoniae DNA (PCR) (NotDetected) Coronavirus OC43 (PCR) (NotDetected) Coronavirus HKU1 (PCR) (NotDetected) Coronavirus 229E (PCR) (NotDetected) SARS-CoV-2 (PCR) (NotDetected) Coronavirus NL63 (PCR) (NotDetected) Human Metapneumovir PCR (NotDetected) Influenza Type A (PCR) (NotDetected) Influenza Type B (PCR) (NotDetected) M. pneumoniae (PCR) (NotDetected) Parainfluenza 1 (PCR) (NotDetected) Parainfluenza 2 (PCR) (NotDetected) Parainfluenza 3 (PCR) (NotDetected) Parainfluenza 4 (PCR) (NotDetected) RSV (RT-PCR) (Neg) RSV (PCR) (NotDetected) Entero/Rhino (PCR) (NotDetected) Blood Type Blood Type Recheck Antibody Screen Crossmatch 09/06/23 09/06/23 09/07/23 Range/Units 08:58 08:58 01:16 WBC 13.30 H (4.8-10.8) K/ul RBC 2.90 L (4.70-6.10) M/uL Hgb 8.9 L (14.0-18.0) g/dl POC Hgb (14.0-18.0) g/dl Hct 28.3 L (42.0-52.0) % POC Hct (42-52) % MCV 97.6 (80.0-100.0) fL MCH 30.7 (25.0-34.0) pg MCHC 31.4 L (32.0-36.0) g/dL RDW Std Deviation 48.6 H (36.4-46.3) fL RDW Coeff of Jesse 13.4 (11.5-14.5) % Plt Count 138 (130-400) K/uL MPV 9.6 (9.4-12.4) fL Immature Gran % (Auto) % Neut % (Auto) % Lymph % (Auto) % [place] % (Auto) % Eos % (Auto) % Baso % (Auto) % Neut # (Auto) (1.40-6.50) K/uL Lymph # (Auto) (1.20-3.40) K/uL [place] # (Auto) (0.11-0.59) K/uL Eos # (Auto) (0.00-0.50) K/uL Baso # (Auto) (0.00-0.20) K/uL Immature Gran # (Auto) (0.01-0.20) K/uL Platelet Estimate (Normal) RBC Morphology Echinocytes PT (9.0-12.0) Seconds INR (0.9-1.1) APTT (21-31) Seconds PTT Ratio D-Dimer (0-500) ug/L FEU Sample Site POC pH (7.35-7.45) POC pCO2 (35-46) mmHg POC pO2 (80-95) mmHg POC HCO3 (19-24) lachelle/L POC Total CO2 (24-31) mmol/L POC Base Excess (-9-1.8) lachelle/L ABG pH (7.35-7.45) ABG pH (Temp Correct) (7.35-7.45) ABG pCO2 (35-46) mmHg ABG pCO2 (Temp Corrct (35-46) mmHg ABG pO2 (80-95) mmHg POC ABG pO2 at Pt Temp ABG HCO3 (19-24) mmol/L POC ABG O2 Sat (90-95) % ABG O2 Saturation (90-95) % ABG Base Excess (-9-1.8) mEq/L Mikey Test (Pos) VBG pH (7.36-7.41) VBG pCO2 (38-50) mmHg VBG pO2 mmHg VBG HCO3 mmol/L VBG O2 Saturation % VBG Base Excess mEq/L Oxygen Given O2 Delivery Device POC O2 Rate POC FiO2 % Tidal Volume PEEP POC Sodium (135-144) mmol/L Sodium 141 (136-145) mmol/L POC Potassium (3.3-5.0) mmol/L Potassium 4.1 (3.5-5.1) mmol/L POC Chloride (101-112) mmol/L Chloride 109 H (98-107) mmol/L Carbon Dioxide 27 (21-32) mmol/L Anion Gap 5 (3-11) POC Anion Gap (16-25) mmol/L POC BUN (7-18) mg/dl BUN 20 (6-23) mg/dl Creatinine 0.88 (0.6-1.4) mg/dl POC Creatinine (0.6-1.3) mg/dl Est Cr Clr Drug Dosing 70.9 Est GFR ( Amer) 99.5 ml/min Est GFR (Non-Af Amer) 85.8 ml/min BUN/Creatinine Ratio 22.7 H (10-20) Glucose 77 (70-99(Fasting)) mg/dl POC Glucose 126 H (70-99) mg/dl POC Glucose (other) (70-99) mg/dl Lactate (0.4-2.0) mmol/L Calcium 7.9 L (8.6-10.3) mg/dl POC Ioniz Calcium [place] (1.12-1.32) mmol/l Phosphorus 2.1 L 2.1 L (2.5-4.9) mg/dl Magnesium 1.6 L (1.7-2.4) mg/dl Iron (35-175) mcg/dl TIBC (250-450) mcg/dl Unsaturated IBC (155-355) mcg/dl Transferrin % Sat (20-50) % Ferritin (8-388) ng/ml Total Bilirubin 0.4 (0.2-1.0) mg/dl Direct Bilirubin (0-0.2) mg/dl AST 12 L (13-39) U/L ALT (7-52) U/L Alkaline Phosphatase 167 H (34-104) U/L Ammonia (18-72) umol/L Troponin I High Sens (0-20) pg/ml Total Protein (6.0-8.3) gm/dl Albumin (3.4-5.0) gm/dl Globulin (2.5-4.0) gm/dl Albumin/Globulin Ratio (0.9-2) Triglycerides 137 (0-150) mg/dl Vitamin B1 (8-30) nmol/L Vitamin B12 (180-914) pg/ml 25-OH Vitamin D Total (30-100) ng/ml Folate (>5.38) ng/ml Procalcitonin (0-0.5) ng/ml TSH (0.300-4.500) uIu/ml Free T4 (0.61-1.60) ng/dl Urine Color Urine Appearance (Clear) Urine pH (4.5-7.5) Ur Specific [place] (1.000-1.030) Urine Protein (Negative) Urine Glucose (UA) (Negative) Urine Ketones (Negative) Urine Blood (Negative) Urine Nitrite (Negative) Urine Bilirubin (Negative) Urine Urobilinogen (Negative) Ur Leukocyte Esterase (Negative) Urine WBC (Auto) Urine RBC (Auto) U Hyaline Cast (Auto) U Epithel Cells (Auto) Urine Bacteria (Auto) Ur Renal Epithelial Cell Urine Crystals Calcium Oxalate Crystal Uric Acid Crystals Triple Phos Crystals Other Crystals Amorphous Sediment Granular Casts Waxy Casts RBC Casts WBC Casts Pathogenic Casts Other Casts Urine Mucus Urine Other Urine Trichomonas Urine Yeast Urine Sperm Ur Oval Fat Bodies Ur Culture Indicated? Nasal Screen MRSA (PCR) (Negative) Random Vancomycin (10-20) mcg/ml Adenovirus (PCR) (NotDetected) B. pertussis DNA (PCR) (NotDetected) B.parapertussis DNA PCR (NotDetected) C. pneumoniae DNA (PCR) (NotDetected) Coronavirus OC43 (PCR) (NotDetected) Coronavirus HKU1 (PCR) (NotDetected) Coronavirus 229E (PCR) (NotDetected) SARS-CoV-2 (PCR) (NotDetected) Coronavirus NL63 (PCR) (NotDetected) Human Metapneumovir PCR (NotDetected) Influenza Type A (PCR) (NotDetected) Influenza Type B (PCR) (NotDetected) M. pneumoniae (PCR) (NotDetected) Parainfluenza 1 (PCR) (NotDetected) Parainfluenza 2 (PCR) (NotDetected) Parainfluenza 3 (PCR) (NotDetected) Parainfluenza 4 (PCR) (NotDetected) RSV (RT-PCR) (Neg) RSV (PCR) (NotDetected) Entero/Rhino (PCR) (NotDetected) Blood Type Blood Type Recheck Antibody Screen Crossmatch 09/07/23 09/07/23 09/07/23 Range/Units 06:03 11:45 15:55 WBC (4.8-10.8) K/ul RBC (4.70-6.10) M/uL Hgb (14.0-18.0) g/dl POC Hgb (14.0-18.0) g/dl Hct (42.0-52.0) % POC Hct (42-52) % MCV (80.0-100.0) fL MCH (25.0-34.0) pg MCHC (32.0-36.0) g/dL RDW Std Deviation (36.4-46.3) fL RDW Coeff of Jesse (11.5-14.5) % Plt Count (130-400) K/uL MPV (9.4-12.4) fL Immature Gran % (Auto) % Neut % (Auto) % Lymph % (Auto) % [place] % (Auto) % Eos % (Auto) % Baso % (Auto) % Neut # (Auto) (1.40-6.50) K/uL Lymph # (Auto) (1.20-3.40) K/uL [place] # (Auto) (0.11-0.59) K/uL Eos # (Auto) (0.00-0.50) K/uL Baso # (Auto) (0.00-0.20) K/uL Immature Gran # (Auto) (0.01-0.20) K/uL Platelet Estimate (Normal) RBC Morphology Echinocytes PT (9.0-12.0) Seconds INR (0.9-1.1) APTT (21-31) Seconds PTT Ratio D-Dimer (0-500) ug/L FEU Sample Site POC pH (7.35-7.45) POC pCO2 (35-46) mmHg POC pO2 (80-95) mmHg POC HCO3 (19-24) lachelle/L POC Total CO2 (24-31) mmol/L POC Base Excess (-9-1.8) lachelle/L ABG pH (7.35-7.45) ABG pH (Temp Correct) (7.35-7.45) ABG pCO2 (35-46) mmHg ABG pCO2 (Temp Corrct (35-46) mmHg ABG pO2 (80-95) mmHg POC ABG pO2 at Pt Temp ABG HCO3 (19-24) mmol/L POC ABG O2 Sat (90-95) % ABG O2 Saturation (90-95) % ABG Base Excess (-9-1.8) mEq/L Mikey Test (Pos) VBG pH 7.23 L (7.36-7.41) VBG pCO2 71 H (38-50) mmHg VBG pO2 30 mmHg VBG HCO3 30 mmol/L VBG O2 Saturation < 60.0 % VBG Base Excess 0.2 mEq/L Oxygen Given O2 Delivery Device POC O2 Rate POC FiO2 % Tidal Volume PEEP POC Sodium (135-144) mmol/L Sodium 139 (136-145) mmol/L POC Potassium (3.3-5.0) mmol/L Potassium 4.0 (3.5-5.1) mmol/L POC Chloride (101-112) mmol/L Chloride 107 (98-107) mmol/L Carbon Dioxide 25 (21-32) mmol/L Anion Gap 7 (3-11) POC Anion Gap (16-25) mmol/L POC BUN (7-18) mg/dl BUN 19 (6-23) mg/dl Creatinine 0.81 (0.6-1.4) mg/dl POC Creatinine (0.6-1.3) mg/dl Est Cr Clr Drug Dosing 77.1 Est GFR ( Amer) 102.9 ml/min Est GFR (Non-Af Amer) 88.8 ml/min BUN/Creatinine Ratio 23.5 H (10-20) Glucose 146 H (70-99(Fasting)) mg/dl POC Glucose 141 H (70-99) mg/dl POC Glucose (other) (70-99) mg/dl Lactate 1.5 (0.4-2.0) mmol/L Calcium 8.1 L (8.6-10.3) mg/dl POC Ioniz Calcium [place] (1.12-1.32) mmol/l Phosphorus 2.3 L (2.5-4.9) mg/dl Magnesium 1.8 (1.7-2.4) mg/dl Iron (35-175) mcg/dl TIBC (250-450) mcg/dl Unsaturated IBC (155-355) mcg/dl Transferrin % Sat (20-50) % Ferritin (8-388) ng/ml Total Bilirubin (0.2-1.0) mg/dl Direct Bilirubin (0-0.2) mg/dl AST (13-39) U/L ALT (7-52) U/L Alkaline Phosphatase (34-104) U/L Ammonia 22.0 (18-72) umol/L Troponin I High Sens (0-20) pg/ml Total Protein (6.0-8.3) gm/dl Albumin (3.4-5.0) gm/dl Globulin (2.5-4.0) gm/dl Albumin/Globulin Ratio (0.9-2) Triglycerides (0-150) mg/dl Vitamin B1 (8-30) nmol/L Vitamin B12 (180-914) pg/ml 25-OH Vitamin D Total (30-100) ng/ml Folate (>5.38) ng/ml Procalcitonin (0-0.5) ng/ml TSH (0.300-4.500) uIu/ml Free T4 (0.61-1.60) ng/dl Urine Color Urine Appearance (Clear) Urine pH (4.5-7.5) Ur Specific [place] (1.000-1.030) Urine Protein (Negative) Urine Glucose (UA) (Negative) Urine Ketones (Negative) Urine Blood (Negative) Urine Nitrite (Negative) Urine Bilirubin (Negative) Urine Urobilinogen (Negative) Ur Leukocyte Esterase (Negative) Urine WBC (Auto) Urine RBC (Auto) U Hyaline Cast (Auto) U Epithel Cells (Auto) Urine Bacteria (Auto) Ur Renal Epithelial Cell Urine Crystals Calcium Oxalate Crystal Uric Acid Crystals Triple Phos Crystals Other Crystals Amorphous Sediment Granular Casts Waxy Casts RBC Casts WBC Casts Pathogenic Casts Other Casts Urine Mucus Urine Other Urine Trichomonas Urine Yeast Urine Sperm Ur Oval Fat Bodies Ur Culture Indicated? Nasal Screen MRSA (PCR) (Negative) Random Vancomycin (10-20) mcg/ml Adenovirus (PCR) (NotDetected) B. pertussis DNA (PCR) (NotDetected) B.parapertussis DNA PCR (NotDetected) C. pneumoniae DNA (PCR) (NotDetected) Coronavirus OC43 (PCR) (NotDetected) Coronavirus HKU1 (PCR) (NotDetected) Coronavirus 229E (PCR) (NotDetected) SARS-CoV-2 (PCR) (NotDetected) Coronavirus NL63 (PCR) (NotDetected) Human Metapneumovir PCR (NotDetected) Influenza Type A (PCR) (NotDetected) Influenza Type B (PCR) (NotDetected) M. pneumoniae (PCR) (NotDetected) Parainfluenza 1 (PCR) (NotDetected) Parainfluenza 2 (PCR) (NotDetected) Parainfluenza 3 (PCR) (NotDetected) Parainfluenza 4 (PCR) (NotDetected) RSV (RT-PCR) (Neg) RSV (PCR) (NotDetected) Entero/Rhino (PCR) (NotDetected) Blood Type Blood Type Recheck Antibody Screen Crossmatch 09/07/23 09/07/23 09/07/23 Range/Units 16:13 17:38 20:19 WBC 16.79 H (4.8-10.8) K/ul RBC 3.34 L (4.70-6.10) M/uL Hgb 10.2 L (14.0-18.0) g/dl POC Hgb (14.0-18.0) g/dl Hct 32.0 L (42.0-52.0) % POC Hct (42-52) % MCV 95.8 (80.0-100.0) fL MCH 30.5 (25.0-34.0) pg MCHC 31.9 L (32.0-36.0) g/dL RDW Std Deviation 47.8 H (36.4-46.3) fL RDW Coeff of Jesse 13.5 (11.5-14.5) % Plt Count 224 D (130-400) K/uL MPV 9.5 (9.4-12.4) fL Immature Gran % (Auto) 1.7 % Neut % (Auto) 92.9 % Lymph % (Auto) 2.8 % [place] % (Auto) 2.4 % Eos % (Auto) 0.1 % Baso % (Auto) 0.1 % Neut # (Auto) 15.59 H (1.40-6.50) K/uL Lymph # (Auto) 0.47 L (1.20-3.40) K/uL [place] # (Auto) 0.41 (0.11-0.59) K/uL Eos # (Auto) 0.01 (0.00-0.50) K/uL Baso # (Auto) 0.02 (0.00-0.20) K/uL Immature Gran # (Auto) 0.29 H (0.01-0.20) K/uL Platelet Estimate (Normal) RBC Morphology Echinocytes PT (9.0-12.0) Seconds INR (0.9-1.1) APTT (21-31) Seconds PTT Ratio D-Dimer (0-500) ug/L FEU Sample Site POC pH (7.35-7.45) POC pCO2 (35-46) mmHg POC pO2 (80-95) mmHg POC HCO3 (19-24) lachelle/L POC Total CO2 (24-31) mmol/L POC Base Excess (-9-1.8) lachelle/L ABG pH (7.35-7.45) ABG pH (Temp Correct) (7.35-7.45) ABG pCO2 (35-46) mmHg ABG pCO2 (Temp Corrct (35-46) mmHg ABG pO2 (80-95) mmHg POC ABG pO2 at Pt Temp ABG HCO3 (19-24) mmol/L POC ABG O2 Sat (90-95) % ABG O2 Saturation (90-95) % ABG Base Excess (-9-1.8) mEq/L Mikey Test (Pos) VBG pH 7.25 L 7.31 L (7.36-7.41) VBG pCO2 69 H 60 H (38-50) mmHg VBG pO2 30 47 mmHg VBG HCO3 30 30 mmol/L VBG O2 Saturation < 60.0 74.3 % VBG Base Excess 1.2 2.4 mEq/L Oxygen Given O2 Delivery Device POC O2 Rate POC FiO2 % Tidal Volume PEEP POC Sodium (135-144) mmol/L Sodium (136-145) mmol/L POC Potassium (3.3-5.0) mmol/L Potassium (3.5-5.1) mmol/L POC Chloride (101-112) mmol/L Chloride (98-107) mmol/L Carbon Dioxide (21-32) mmol/L Anion Gap (3-11) POC Anion Gap (16-25) mmol/L POC BUN (7-18) mg/dl BUN (6-23) mg/dl Creatinine (0.6-1.4) mg/dl POC Creatinine (0.6-1.3) mg/dl Est Cr Clr Drug Dosing Est GFR ( Amer) ml/min Est GFR (Non-Af Amer) ml/min BUN/Creatinine Ratio (10-20) Glucose (70-99(Fasting)) mg/dl POC Glucose (70-99) mg/dl POC Glucose (other) (70-99) mg/dl Lactate (0.4-2.0) mmol/L Calcium (8.6-10.3) mg/dl POC Ioniz Calcium [place] (1.12-1.32) mmol/l Phosphorus (2.5-4.9) mg/dl Magnesium (1.7-2.4) mg/dl Iron (35-175) mcg/dl TIBC (250-450) mcg/dl Unsaturated IBC (155-355) mcg/dl Transferrin % Sat (20-50) % Ferritin (8-388) ng/ml Total Bilirubin 0.4 (0.2-1.0) mg/dl Direct Bilirubin 0.1 (0-0.2) mg/dl AST 18 (13-39) U/L ALT 21 (7-52) U/L Alkaline Phosphatase 171 H (34-104) U/L Ammonia (18-72) umol/L Troponin I High Sens (0-20) pg/ml Total Protein 5.2 L (6.0-8.3) gm/dl Albumin 2.6 L (3.4-5.0) gm/dl Globulin (2.5-4.0) gm/dl Albumin/Globulin Ratio (0.9-2) Triglycerides (0-150) mg/dl Vitamin B1 (8-30) nmol/L Vitamin B12 (180-914) pg/ml 25-OH Vitamin D Total (30-100) ng/ml Folate (>5.38) ng/ml Procalcitonin 0.76 H (0-0.5) ng/ml TSH 6.604 H (0.300-4.500) uIu/ml Free T4 0.83 (0.61-1.60) ng/dl Urine Color Urine Appearance (Clear) Urine pH (4.5-7.5) Ur Specific [place] (1.000-1.030) Urine Protein (Negative) Urine Glucose (UA) (Negative) Urine Ketones (Negative) Urine Blood (Negative) Urine Nitrite (Negative) Urine Bilirubin (Negative) Urine Urobilinogen (Negative) Ur Leukocyte Esterase (Negative) Urine WBC (Auto) Urine RBC (Auto) U Hyaline Cast (Auto) U Epithel Cells (Auto) Urine Bacteria (Auto) Ur Renal Epithelial Cell Urine Crystals Calcium Oxalate Crystal Uric Acid Crystals Triple Phos Crystals Other Crystals Amorphous Sediment Granular Casts Waxy Casts RBC Casts WBC Casts Pathogenic Casts Other Casts Urine Mucus Urine Other Urine Trichomonas Urine Yeast Urine Sperm Ur Oval Fat Bodies Ur Culture Indicated? Nasal Screen MRSA (PCR) (Negative) Random Vancomycin (10-20) mcg/ml Adenovirus (PCR) (NotDetected) B. pertussis DNA (PCR) (NotDetected) B.parapertussis DNA PCR (NotDetected) C. pneumoniae DNA (PCR) (NotDetected) Coronavirus OC43 (PCR) (NotDetected) Coronavirus HKU1 (PCR) (NotDetected) Coronavirus 229E (PCR) (NotDetected) SARS-CoV-2 (PCR) (NotDetected) Coronavirus NL63 (PCR) (NotDetected) Human Metapneumovir PCR (NotDetected) Influenza Type A (PCR) (NotDetected) Influenza Type B (PCR) (NotDetected) M. pneumoniae (PCR) (NotDetected) Parainfluenza 1 (PCR) (NotDetected) Parainfluenza 2 (PCR) (NotDetected) Parainfluenza 3 (PCR) (NotDetected) Parainfluenza 4 (PCR) (NotDetected) RSV (RT-PCR) (Neg) RSV (PCR) (NotDetected) Entero/Rhino (PCR) (NotDetected) Blood Type Blood Type Recheck Antibody Screen Crossmatch 09/08/23 09/08/23 09/08/23 Range/Units 01:13 05:52 08:10 WBC 12.33 H (4.8-10.8) K/ul RBC 3.04 L (4.70-6.10) M/uL Hgb 9.3 L (14.0-18.0) g/dl POC Hgb (14.0-18.0) g/dl Hct 28.7 L (42.0-52.0) % POC Hct (42-52) % MCV 94.4 (80.0-100.0) fL MCH 30.6 (25.0-34.0) pg MCHC 32.4 (32.0-36.0) g/dL RDW Std Deviation 46.8 H (36.4-46.3) fL RDW Coeff of Jesse 13.6 (11.5-14.5) % Plt Count 169 (130-400) K/uL MPV 9.8 (9.4-12.4) fL Immature Gran % (Auto) % Neut % (Auto) % Lymph % (Auto) % [place] % (Auto) % Eos % (Auto) % Baso % (Auto) % Neut # (Auto) (1.40-6.50) K/uL Lymph # (Auto) (1.20-3.40) K/uL [place] # (Auto) (0.11-0.59) K/uL Eos # (Auto) (0.00-0.50) K/uL Baso # (Auto) (0.00-0.20) K/uL Immature Gran # (Auto) (0.01-0.20) K/uL Platelet Estimate (Normal) RBC Morphology Echinocytes PT (9.0-12.0) Seconds INR (0.9-1.1) APTT (21-31) Seconds PTT Ratio D-Dimer (0-500) ug/L FEU Sample Site POC pH (7.35-7.45) POC pCO2 (35-46) mmHg POC pO2 (80-95) mmHg POC HCO3 (19-24) lachelle/L POC Total CO2 (24-31) mmol/L POC Base Excess (-9-1.8) lachelle/L ABG pH (7.35-7.45) ABG pH (Temp Correct) (7.35-7.45) ABG pCO2 (35-46) mmHg ABG pCO2 (Temp Corrct (35-46) mmHg ABG pO2 (80-95) mmHg POC ABG pO2 at Pt Temp ABG HCO3 (19-24) mmol/L POC ABG O2 Sat (90-95) % ABG O2 Saturation (90-95) % ABG Base Excess (-9-1.8) mEq/L Mikey Test (Pos) VBG pH 7.36 (7.36-7.41) VBG pCO2 55 H (38-50) mmHg VBG pO2 42 mmHg VBG HCO3 31 mmol/L VBG O2 Saturation 68.6 % VBG Base Excess 4.2 mEq/L Oxygen Given O2 Delivery Device POC O2 Rate POC FiO2 % Tidal Volume PEEP POC Sodium (135-144) mmol/L Sodium 142 (136-145) mmol/L POC Potassium (3.3-5.0) mmol/L Potassium 3.3 L (3.5-5.1) mmol/L POC Chloride (101-112) mmol/L Chloride 107 (98-107) mmol/L Carbon Dioxide 28 (21-32) mmol/L Anion Gap 7 (3-11) POC Anion Gap (16-25) mmol/L POC BUN (7-18) mg/dl BUN 18 (6-23) mg/dl Creatinine 0.77 (0.6-1.4) mg/dl POC Creatinine (0.6-1.3) mg/dl Est Cr Clr Drug Dosing 81.1 Est GFR ( Amer) 105.1 ml/min Est GFR (Non-Af Amer) 90.7 ml/min BUN/Creatinine Ratio 23.4 H (10-20) Glucose 87 (70-99(Fasting)) mg/dl POC Glucose 99 74 (70-99) mg/dl POC Glucose (other) (70-99) mg/dl Lactate (0.4-2.0) mmol/L Calcium 7.9 L (8.6-10.3) mg/dl POC Ioniz Calcium [place] (1.12-1.32) mmol/l Phosphorus (2.5-4.9) mg/dl Magnesium 1.5 L (1.7-2.4) mg/dl Iron (35-175) mcg/dl TIBC (250-450) mcg/dl Unsaturated IBC (155-355) mcg/dl Transferrin % Sat (20-50) % Ferritin (8-388) ng/ml Total Bilirubin (0.2-1.0) mg/dl Direct Bilirubin (0-0.2) mg/dl AST (13-39) U/L ALT (7-52) U/L Alkaline Phosphatase (34-104) U/L Ammonia (18-72) umol/L Troponin I High Sens (0-20) pg/ml Total Protein (6.0-8.3) gm/dl Albumin (3.4-5.0) gm/dl Globulin (2.5-4.0) gm/dl Albumin/Globulin Ratio (0.9-2) Triglycerides (0-150) mg/dl Vitamin B1 (8-30) nmol/L Vitamin B12 (180-914) pg/ml 25-OH Vitamin D Total (30-100) ng/ml Folate (>5.38) ng/ml Procalcitonin (0-0.5) ng/ml TSH (0.300-4.500) uIu/ml Free T4 (0.61-1.60) ng/dl Urine Color Urine Appearance (Clear) Urine pH (4.5-7.5) Ur Specific [place] (1.000-1.030) Urine Protein (Negative) Urine Glucose (UA) (Negative) Urine Ketones (Negative) Urine Blood (Negative) Urine Nitrite (Negative) Urine Bilirubin (Negative) Urine Urobilinogen (Negative) Ur Leukocyte Esterase (Negative) Urine WBC (Auto) Urine RBC (Auto) U Hyaline Cast (Auto) U Epithel Cells (Auto) Urine Bacteria (Auto) Ur Renal Epithelial Cell Urine Crystals Calcium Oxalate Crystal Uric Acid Crystals Triple Phos Crystals Other Crystals Amorphous Sediment Granular Casts Waxy Casts RBC Casts WBC Casts Pathogenic Casts Other Casts Urine Mucus Urine Other Urine Trichomonas Urine Yeast Urine Sperm Ur Oval Fat Bodies Ur Culture Indicated? Nasal Screen MRSA (PCR) (Negative) Random Vancomycin (10-20) mcg/ml Adenovirus (PCR) (NotDetected) B. pertussis DNA (PCR) (NotDetected) B.parapertussis DNA PCR (NotDetected) C. pneumoniae DNA (PCR) (NotDetected) Coronavirus OC43 (PCR) (NotDetected) Coronavirus HKU1 (PCR) (NotDetected) Coronavirus 229E (PCR) (NotDetected) SARS-CoV-2 (PCR) (NotDetected) Coronavirus NL63 (PCR) (NotDetected) Human Metapneumovir PCR (NotDetected) Influenza Type A (PCR) (NotDetected) Influenza Type B (PCR) (NotDetected) M. pneumoniae (PCR) (NotDetected) Parainfluenza 1 (PCR) (NotDetected) Parainfluenza 2 (PCR) (NotDetected) Parainfluenza 3 (PCR) (NotDetected) Parainfluenza 4 (PCR) (NotDetected) RSV (RT-PCR) (Neg) RSV (PCR) (NotDetected) Entero/Rhino (PCR) (NotDetected) Blood Type Blood Type Recheck Antibody Screen Crossmatch 09/08/23 09/08/23 09/08/23 Range/Units 11:05 14:00 18:15 WBC (4.8-10.8) K/ul RBC (4.70-6.10) M/uL Hgb (14.0-18.0) g/dl POC Hgb (14.0-18.0) g/dl Hct (42.0-52.0) % POC Hct (42-52) % MCV (80.0-100.0) fL MCH (25.0-34.0) pg MCHC (32.0-36.0) g/dL RDW Std Deviation (36.4-46.3) fL RDW Coeff of Jesse (11.5-14.5) % Plt Count (130-400) K/uL MPV (9.4-12.4) fL Immature Gran % (Auto) % Neut % (Auto) % Lymph % (Auto) % [place] % (Auto) % Eos % (Auto) % Baso % (Auto) % Neut # (Auto) (1.40-6.50) K/uL Lymph # (Auto) (1.20-3.40) K/uL [place] # (Auto) (0.11-0.59) K/uL Eos # (Auto) (0.00-0.50) K/uL Baso # (Auto) (0.00-0.20) K/uL Immature Gran # (Auto) (0.01-0.20) K/uL Platelet Estimate (Normal) RBC Morphology Echinocytes PT (9.0-12.0) Seconds INR (0.9-1.1) APTT (21-31) Seconds PTT Ratio D-Dimer (0-500) ug/L FEU Sample Site POC pH (7.35-7.45) POC pCO2 (35-46) mmHg POC pO2 (80-95) mmHg POC HCO3 (19-24) lachelle/L POC Total CO2 (24-31) mmol/L POC Base Excess (-9-1.8) lachelle/L ABG pH (7.35-7.45) ABG pH (Temp Correct) (7.35-7.45) ABG pCO2 (35-46) mmHg ABG pCO2 (Temp Corrct (35-46) mmHg ABG pO2 (80-95) mmHg POC ABG pO2 at Pt Temp ABG HCO3 (19-24) mmol/L POC ABG O2 Sat (90-95) % ABG O2 Saturation (90-95) % ABG Base Excess (-9-1.8) mEq/L Mikey Test (Pos) VBG pH (7.36-7.41) VBG pCO2 (38-50) mmHg VBG pO2 mmHg VBG HCO3 mmol/L VBG O2 Saturation % VBG Base Excess mEq/L Oxygen Given O2 Delivery Device POC O2 Rate POC FiO2 % Tidal Volume PEEP POC Sodium (135-144) mmol/L Sodium (136-145) mmol/L POC Potassium (3.3-5.0) mmol/L Potassium (3.5-5.1) mmol/L POC Chloride (101-112) mmol/L Chloride (98-107) mmol/L Carbon Dioxide (21-32) mmol/L Anion Gap (3-11) POC Anion Gap (16-25) mmol/L POC BUN (7-18) mg/dl BUN (6-23) mg/dl Creatinine (0.6-1.4) mg/dl POC Creatinine (0.6-1.3) mg/dl Est Cr Clr Drug Dosing Est GFR ( Amer) ml/min Est GFR (Non-Af Amer) ml/min BUN/Creatinine Ratio (10-20) Glucose (70-99(Fasting)) mg/dl POC Glucose 81 81 (70-99) mg/dl POC Glucose (other) (70-99) mg/dl Lactate (0.4-2.0) mmol/L Calcium (8.6-10.3) mg/dl POC Ioniz Calcium José Antonio (1.12-1.32) mmol/l Phosphorus (2.5-4.9) mg/dl Magnesium (1.7-2.4) mg/dl Iron (35-175) mcg/dl TIBC (250-450) mcg/dl Unsaturated IBC (155-355) mcg/dl Transferrin % Sat (20-50) % Ferritin (8-388) ng/ml Total Bilirubin (0.2-1.0) mg/dl Direct Bilirubin (0-0.2) mg/dl AST (13-39) U/L ALT (7-52) U/L Alkaline Phosphatase (34-104) U/L Ammonia (18-72) umol/L Troponin I High Sens (0-20) pg/ml Total Protein (6.0-8.3) gm/dl Albumin (3.4-5.0) gm/dl Globulin (2.5-4.0) gm/dl Albumin/Globulin Ratio (0.9-2) Triglycerides (0-150) mg/dl Vitamin B1 (8-30) nmol/L Vitamin B12 (180-914) pg/ml 25-OH Vitamin D Total (30-100) ng/ml Folate (>5.38) ng/ml Procalcitonin (0-0.5) ng/ml TSH (0.300-4.500) uIu/ml Free T4 (0.61-1.60) ng/dl Urine Color Urine Appearance (Clear) Urine pH (4.5-7.5) Ur Specific [place] (1.000-1.030) Urine Protein (Negative) Urine Glucose (UA) (Negative) Urine Ketones (Negative) Urine Blood (Negative) Urine Nitrite (Negative) Urine Bilirubin (Negative) Urine Urobilinogen (Negative) Ur Leukocyte Esterase (Negative) Urine WBC (Auto) Urine RBC (Auto) U Hyaline Cast (Auto) U Epithel Cells (Auto) Urine Bacteria (Auto) Ur Renal Epithelial Cell Urine Crystals Calcium Oxalate Crystal Uric Acid Crystals Triple Phos Crystals Other Crystals Amorphous Sediment Granular Casts Waxy Casts RBC Casts WBC Casts Pathogenic Casts Other Casts Urine Mucus Urine Other Urine Trichomonas Urine Yeast Urine Sperm Ur Oval Fat Bodies Ur Culture Indicated? Nasal Screen MRSA (PCR) Negative (Negative) Random Vancomycin (10-20) mcg/ml Adenovirus (PCR) (NotDetected) B. pertussis DNA (PCR) (NotDetected) B.parapertussis DNA PCR (NotDetected) C. pneumoniae DNA (PCR) (NotDetected) Coronavirus OC43 (PCR) (NotDetected) Coronavirus HKU1 (PCR) (NotDetected) Coronavirus 229E (PCR) (NotDetected) SARS-CoV-2 (PCR) NEGATIVE (NotDetected) Coronavirus NL63 (PCR) (NotDetected) Human Metapneumovir PCR (NotDetected) Influenza Type A (PCR) Negative (NotDetected) Influenza Type B (PCR) Negative (NotDetected) M. pneumoniae (PCR) (NotDetected) Parainfluenza 1 (PCR) (NotDetected) Parainfluenza 2 (PCR) (NotDetected) Parainfluenza 3 (PCR) (NotDetected) Parainfluenza 4 (PCR) (NotDetected) RSV (RT-PCR) Negative (Neg) RSV (PCR) (NotDetected) Entero/Rhino (PCR) (NotDetected) Blood Type Blood Type Recheck Antibody Screen Crossmatch 09/09/23 09/09/23 09/09/23 Range/Units 05:46 06:29 11:59 WBC 9.90 (4.8-10.8) K/ul RBC 2.99 L (4.70-6.10) M/uL Hgb 9.2 L (14.0-18.0) g/dl POC Hgb (14.0-18.0) g/dl Hct 28.6 L (42.0-52.0) % POC Hct (42-52) % MCV 95.7 (80.0-100.0) fL MCH 30.8 (25.0-34.0) pg MCHC 32.2 (32.0-36.0) g/dL RDW Std Deviation 47.2 H (36.4-46.3) fL RDW Coeff of Jesse 13.7 (11.5-14.5) % Plt Count 157 (130-400) K/uL MPV 9.6 (9.4-12.4) fL Immature Gran % (Auto) % Neut % (Auto) % Lymph % (Auto) % [place] % (Auto) % Eos % (Auto) % Baso % (Auto) % Neut # (Auto) (1.40-6.50) K/uL Lymph # (Auto) (1.20-3.40) K/uL [place] # (Auto) (0.11-0.59) K/uL Eos # (Auto) (0.00-0.50) K/uL Baso # (Auto) (0.00-0.20) K/uL Immature Gran # (Auto) (0.01-0.20) K/uL Platelet Estimate (Normal) RBC Morphology Echinocytes PT (9.0-12.0) Seconds INR (0.9-1.1) APTT (21-31) Seconds PTT Ratio D-Dimer (0-500) ug/L FEU Sample Site POC pH (7.35-7.45) POC pCO2 (35-46) mmHg POC pO2 (80-95) mmHg POC HCO3 (19-24) lachelle/L POC Total CO2 (24-31) mmol/L POC Base Excess (-9-1.8) lachelle/L ABG pH (7.35-7.45) ABG pH (Temp Correct) (7.35-7.45) ABG pCO2 (35-46) mmHg ABG pCO2 (Temp Corrct (35-46) mmHg ABG pO2 (80-95) mmHg POC ABG pO2 at Pt Temp ABG HCO3 (19-24) mmol/L POC ABG O2 Sat (90-95) % ABG O2 Saturation (90-95) % ABG Base Excess (-9-1.8) mEq/L Mikey Test (Pos) VBG pH (7.36-7.41) VBG pCO2 (38-50) mmHg VBG pO2 mmHg VBG HCO3 mmol/L VBG O2 Saturation % VBG Base Excess mEq/L Oxygen Given O2 Delivery Device POC O2 Rate POC FiO2 % Tidal Volume PEEP POC Sodium (135-144) mmol/L Sodium 144 (136-145) mmol/L POC Potassium (3.3-5.0) mmol/L Potassium 3.3 L (3.5-5.1) mmol/L POC Chloride (101-112) mmol/L Chloride 107 (98-107) mmol/L Carbon Dioxide 29 (21-32) mmol/L Anion Gap 8 (3-11) POC Anion Gap (16-25) mmol/L POC BUN (7-18) mg/dl BUN 17 (6-23) mg/dl Creatinine 0.71 (0.6-1.4) mg/dl POC Creatinine (0.6-1.3) mg/dl Est Cr Clr Drug Dosing 87.9 Est GFR ( Amer) 108.6 ml/min Est GFR (Non-Af Amer) 93.7 ml/min BUN/Creatinine Ratio 23.9 H (10-20) Glucose 83 (70-99(Fasting)) mg/dl POC Glucose 91 101 H (70-99) mg/dl POC Glucose (other) (70-99) mg/dl Lactate (0.4-2.0) mmol/L Calcium 8.0 L (8.6-10.3) mg/dl POC Ioniz Calcium [place] (1.12-1.32) mmol/l Phosphorus (2.5-4.9) mg/dl Magnesium 1.7 (1.7-2.4) mg/dl Iron (35-175) mcg/dl TIBC (250-450) mcg/dl Unsaturated IBC (155-355) mcg/dl Transferrin % Sat (20-50) % Ferritin (8-388) ng/ml Total Bilirubin (0.2-1.0) mg/dl Direct Bilirubin (0-0.2) mg/dl AST (13-39) U/L ALT (7-52) U/L Alkaline Phosphatase (34-104) U/L Ammonia (18-72) umol/L Troponin I High Sens (0-20) pg/ml Total Protein (6.0-8.3) gm/dl Albumin (3.4-5.0) gm/dl Globulin (2.5-4.0) gm/dl Albumin/Globulin Ratio (0.9-2) Triglycerides (0-150) mg/dl Vitamin B1 (8-30) nmol/L Vitamin B12 (180-914) pg/ml 25-OH Vitamin D Total (30-100) ng/ml Folate (>5.38) ng/ml Procalcitonin (0-0.5) ng/ml TSH (0.300-4.500) uIu/ml Free T4 (0.61-1.60) ng/dl Urine Color Urine Appearance (Clear) Urine pH (4.5-7.5) Ur Specific [place] (1.000-1.030) Urine Protein (Negative) Urine Glucose (UA) (Negative) Urine Ketones (Negative) Urine Blood (Negative) Urine Nitrite (Negative) Urine Bilirubin (Negative) Urine Urobilinogen (Negative) Ur Leukocyte Esterase (Negative) Urine WBC (Auto) Urine RBC (Auto) U Hyaline Cast (Auto) U Epithel Cells (Auto) Urine Bacteria (Auto) Ur Renal Epithelial Cell Urine Crystals Calcium Oxalate Crystal Uric Acid Crystals Triple Phos Crystals Other Crystals Amorphous Sediment Granular Casts Waxy Casts RBC Casts WBC Casts Pathogenic Casts Other Casts Urine Mucus Urine Other Urine Trichomonas Urine Yeast Urine Sperm Ur Oval Fat Bodies Ur Culture Indicated? Nasal Screen MRSA (PCR) (Negative) Random Vancomycin (10-20) mcg/ml Adenovirus (PCR) (NotDetected) B. pertussis DNA (PCR) (NotDetected) B.parapertussis DNA PCR (NotDetected) C. pneumoniae DNA (PCR) (NotDetected) Coronavirus OC43 (PCR) (NotDetected) Coronavirus HKU1 (PCR) (NotDetected) Coronavirus 229E (PCR) (NotDetected) SARS-CoV-2 (PCR) (NotDetected) Coronavirus NL63 (PCR) (NotDetected) Human Metapneumovir PCR (NotDetected) Influenza Type A (PCR) (NotDetected) Influenza Type B (PCR) (NotDetected) M. pneumoniae (PCR) (NotDetected) Parainfluenza 1 (PCR) (NotDetected) Parainfluenza 2 (PCR) (NotDetected) Parainfluenza 3 (PCR) (NotDetected) Parainfluenza 4 (PCR) (NotDetected) RSV (RT-PCR) (Neg) RSV (PCR) (NotDetected) Entero/Rhino (PCR) (NotDetected) Blood Type Blood Type Recheck Antibody Screen Crossmatch 09/10/23 09/10/23 09/11/23 Range/Units 06:25 09:49 05:30 WBC (4.8-10.8) K/ul RBC (4.70-6.10) M/uL Hgb (14.0-18.0) g/dl POC Hgb (14.0-18.0) g/dl Hct (42.0-52.0) % POC Hct (42-52) % MCV (80.0-100.0) fL MCH (25.0-34.0) pg MCHC (32.0-36.0) g/dL RDW Std Deviation (36.4-46.3) fL RDW Coeff of Jesse (11.5-14.5) % Plt Count (130-400) K/uL MPV (9.4-12.4) fL Immature Gran % (Auto) % Neut % (Auto) % Lymph % (Auto) % [place] % (Auto) % Eos % (Auto) % Baso % (Auto) % Neut # (Auto) (1.40-6.50) K/uL Lymph # (Auto) (1.20-3.40) K/uL [place] # (Auto) (0.11-0.59) K/uL Eos # (Auto) (0.00-0.50) K/uL Baso # (Auto) (0.00-0.20) K/uL Immature Gran # (Auto) (0.01-0.20) K/uL Platelet Estimate (Normal) RBC Morphology Echinocytes PT (9.0-12.0) Seconds INR (0.9-1.1) APTT (21-31) Seconds PTT Ratio D-Dimer (0-500) ug/L FEU Sample Site POC pH (7.35-7.45) POC pCO2 (35-46) mmHg POC pO2 (80-95) mmHg POC HCO3 (19-24) lachelle/L POC Total CO2 (24-31) mmol/L POC Base Excess (-9-1.8) lachelle/L ABG pH (7.35-7.45) ABG pH (Temp Correct) (7.35-7.45) ABG pCO2 (35-46) mmHg ABG pCO2 (Temp Corrct (35-46) mmHg ABG pO2 (80-95) mmHg POC ABG pO2 at Pt Temp ABG HCO3 (19-24) mmol/L POC ABG O2 Sat (90-95) % ABG O2 Saturation (90-95) % ABG Base Excess (-9-1.8) mEq/L Mikey Test (Pos) VBG pH 7.51 H (7.36-7.41) VBG pCO2 38 (38-50) mmHg VBG pO2 64 mmHg VBG HCO3 30 mmol/L VBG O2 Saturation 94.4 % VBG Base Excess 6.9 mEq/L Oxygen Given O2 Delivery Device POC O2 Rate POC FiO2 % Tidal Volume PEEP POC Sodium (135-144) mmol/L Sodium 142 145 (136-145) mmol/L POC Potassium (3.3-5.0) mmol/L Potassium 3.5 3.4 L (3.5-5.1) mmol/L POC Chloride (101-112) mmol/L Chloride 107 108 H (98-107) mmol/L Carbon Dioxide 28 31 (21-32) mmol/L Anion Gap 7 6 (3-11) POC Anion Gap (16-25) mmol/L POC BUN (7-18) mg/dl BUN 20 21 (6-23) mg/dl Creatinine 0.79 0.94 (0.6-1.4) mg/dl POC Creatinine (0.6-1.3) mg/dl Est Cr Clr Drug Dosing 79.0 66.4 Est GFR ( Amer) 104.0 93.5 ml/min Est GFR (Non-Af Amer) 89.7 80.7 ml/min BUN/Creatinine Ratio 25.3 H 22.3 H (10-20) Glucose 139 H 102 H (70-99(Fasting)) mg/dl POC Glucose (70-99) mg/dl POC Glucose (other) (70-99) mg/dl Lactate (0.4-2.0) mmol/L Calcium 8.4 L 8.6 (8.6-10.3) mg/dl POC Ioniz Calcium [place] (1.12-1.32) mmol/l Phosphorus (2.5-4.9) mg/dl Magnesium 1.7 1.7 (1.7-2.4) mg/dl Iron (35-175) mcg/dl TIBC (250-450) mcg/dl Unsaturated IBC (155-355) mcg/dl Transferrin % Sat (20-50) % Ferritin (8-388) ng/ml Total Bilirubin (0.2-1.0) mg/dl Direct Bilirubin (0-0.2) mg/dl AST (13-39) U/L ALT (7-52) U/L Alkaline Phosphatase (34-104) U/L Ammonia (18-72) umol/L Troponin I High Sens (0-20) pg/ml Total Protein (6.0-8.3) gm/dl Albumin (3.4-5.0) gm/dl Globulin (2.5-4.0) gm/dl Albumin/Globulin Ratio (0.9-2) Triglycerides (0-150) mg/dl Vitamin B1 (8-30) nmol/L Vitamin B12 (180-914) pg/ml 25-OH Vitamin D Total 43.7 (30-100) ng/ml Folate (>5.38) ng/ml Procalcitonin (0-0.5) ng/ml TSH (0.300-4.500) uIu/ml Free T4 (0.61-1.60) ng/dl Urine Color Urine Appearance (Clear) Urine pH (4.5-7.5) Ur Specific [place] (1.000-1.030) Urine Protein (Negative) Urine Glucose (UA) (Negative) Urine Ketones (Negative) Urine Blood (Negative) Urine Nitrite (Negative) Urine Bilirubin (Negative) Urine Urobilinogen (Negative) Ur Leukocyte Esterase (Negative) Urine WBC (Auto) Urine RBC (Auto) U Hyaline Cast (Auto) U Epithel Cells (Auto) Urine Bacteria (Auto) Ur Renal Epithelial Cell Urine Crystals Calcium Oxalate Crystal Uric Acid Crystals Triple Phos Crystals Other Crystals Amorphous Sediment Granular Casts Waxy Casts RBC Casts WBC Casts Pathogenic Casts Other Casts Urine Mucus Urine Other Urine Trichomonas Urine Yeast Urine Sperm Ur Oval Fat Bodies Ur Culture Indicated? Nasal Screen MRSA (PCR) (Negative) Random Vancomycin (10-20) mcg/ml Adenovirus (PCR) (NotDetected) B. pertussis DNA (PCR) (NotDetected) B.parapertussis DNA PCR (NotDetected) C. pneumoniae DNA (PCR) (NotDetected) Coronavirus OC43 (PCR) (NotDetected) Coronavirus HKU1 (PCR) (NotDetected) Coronavirus 229E (PCR) (NotDetected) SARS-CoV-2 (PCR) (NotDetected) Coronavirus NL63 (PCR) (NotDetected) Human Metapneumovir PCR (NotDetected) Influenza Type A (PCR) (NotDetected) Influenza Type B (PCR) (NotDetected) M. pneumoniae (PCR) (NotDetected) Parainfluenza 1 (PCR) (NotDetected) Parainfluenza 2 (PCR) (NotDetected) Parainfluenza 3 (PCR) (NotDetected) Parainfluenza 4 (PCR) (NotDetected) RSV (RT-PCR) (Neg) RSV (PCR) (NotDetected) Entero/Rhino (PCR) (NotDetected) Blood Type Blood Type Recheck Antibody Screen Crossmatch
--- NOTE | 2023-09-11 16:43 | Hospitalist Progress Note ---
Date of Service September 11, 2023 Assessment & Plan (1) Acute respiratory failure with hypoxia and hypercapnia: Plan: Patient has had varying degrees of respiratory failure since time of admission to [facility]. Combination of decompensated CHF + pneumonia - especially the latter. 09/07 - had worsening resp acidosis - 2nd to the issues above. s/p BIPAP, change in antibiotic therapy, and diuresis. resolved - off all respiratory support including NC O2 / BIPAP. Of note - he was treated aggressively for aspiration pneumonia during his prolonged hospitalization at [facility] in July. Over the last 4+ weeks he has had antibiotics almost every day - most of which has been broad-spectrum. (2) Acute diastolic CHF (congestive heart failure): Plan: marked improvement this week in volume status required several days of IV lasix over the last week had po lasix yesterday will hold off on additional diuresis today respiratory status stable in room air BMP am (3) Pneumonia: Plan: had completed 10+ days of broad-spectrum IV antibiotics during this stay (mainly zosyn) with start date of 08/26/23 zosyn had been used for both his intra-abdominal abscess/perforation/peritonitis as well his pneumonia despite the above his WBC count had worsened this past week and his respiratory status had declined changed zosyn to meropenem briefly; pharmacy then recommended cefepime/flagyl in aditya of the meropenem - cefepime/flagyl started 09/08/23 checked COVID/flu/RSV swab --> negative checked MRSA swab --> negative speech therapy assistance appreciated VFSS - passed current pneumonia may be from a gram negative pathogen rather than aspiration at this point he is day #17 of IV abx dating back to his admission date of 08/26/23 safe to say he has had more than adequate antibiotic therapy for his lungs he also had at least 7 days of IV zosyn at [facility] in July at this point antibiotics are really for his intra-abdominal issues rather than the lungs (4) Perforated viscus: Plan: s/p ex lap 08/31/[address] Sorenson (today is POD #11) perforation was from the cecum pathology - no malignancy intra-peritoneal cultures grew pseudomonas - pansensitive - as well as bacteroides had been on zosyn, then briefly meropenem, then changed to cefepime/flagyl thus, he has had 10+ days of broad-spectrum IV abx covering the abdomen etiology of perforated cecum with abscess of pelvis?? did he have smoldering diverticulitis of the cecum? other process? appreciate Dr Sorenson's consult and ongoing assistance diet now advanced to regular diet and tolerating such will need to speak with Dr Sorenson about his antibiotics consider formal ID consult as well cont the cefepime/flagyl JUSTINA drain - Dr Sorenson to remove next 1-2 days (5) Intra-abdominal abscess: Plan: as seen on ex lap 08/31/23 abscess and perforation led to peritonitis and severe sepsis intra-op culture from ascites fluid - pseudomonas + bacteroides see #4 above appreciate surgical assistance (6) SBO (small bowel obstruction): Plan: had such early July upon presentation to [facility] in [facility]'s records suggest the transition point was in the terminal ileum he was treated conservatively with NG tube, etc and did not require surgery records state his last colonoscopy was 2018 which showed diverticulosis + hemorrhoids but no polyps EGD at the same time showed hiatal hernia (7) Abnormal CT scan, chest: Plan: b/l pneumonia. nodules also present - concerning for possible underlying malignancy. Appreciate pulm consultation and recs. Cont abx - see above Will need repeat CT chest in a few weeks to ensure improvement in all lung findings to exclude underlying malignancy (8) Acute metabolic encephalopathy: Plan: waxing/waning. night-time still very problematic with confusion, agitation, etc at night. multifactorial - hospital psychosis, sepsis, pneumonia, acidosis, hypercapnia, etc. can't rule out nutritional deficiencies (Wernicke's, etc). s/p treatment of resp acidosis with BIPAP. Cont to hold TCA, sedatives, muscle relaxers, etc. He takes chronic narcotics outside the hospital but no signs/symptoms of withdrawal. B12 wnl. B1 level was high - likely due to recent thiamine supplementation. despite escalating doses of zyprexa he remained agitated at night-time, not sleeping, etc stopped zyprexa and changed to seroquel 25mg HS he has done well on the seroquel and it seemingly worked better increase to 37.5mg at HS checked QTc today on EKG - acceptable QTc/stable cont melatonin 3mg HS of note - MRI brain NEGATIVE for acute or subacute CVA (done on 09/10) (9) Sepsis: Plan: 2nd to pneumonia. 2nd to pelvic abscess and peritonitis. see above re: antibiotics. (10) SHEBA (acute kidney injury): Plan: resolved Peak Cr 2 Now <1 for many days in a row Multifactorial causes for the SHEBA earlier in the stay BMP in am for stability (11) Elevated troponin: Plan: Peak HS trop 79. Likely myocardial demand ischemia. Doubt ACS. (12) COPD (chronic obstructive pulmonary disease): Plan: Cont nebs. Cont inhalers. no flare at this time. (13) Alcohol abuse: Plan: Long standing history of such. Went thru withdrawal at [facility] in July. Had etoh withdrawal seizures by report at the outside hospital. last etoh beverage was 30+ days ago. (14) Paroxysmal A-fib: Plan: Had such while at [facility] Had been on amiodarone to maintain NSR which was placed on hold earlier this admission. need to resume?? has had NO AFIB this entire stay Eliquis 5mg BID had been on hold for 10+ days Corresponded with DR Sorenson from surgery - he is ok w/ resuming Eliquis at this time will stop SC heparin resume Eliquis 5mg BID starting TONIGHT (15) Polymyalgia rheumatica: Plan: Sees rheum for such. On chronic steroids - basal dose uncertain. 7.5mg each day? had been on stress dose steroids with hydrocortisone hydrocortisone has been stopped over to prednisone 20mg/day wean slowly back down to chronic dose of prednisone (7.5mg/day, but need to confirm this with his outpatient providers OR call his pharmacy) (16) Severe protein-calorie malnutrition: Plan: Patient cachectic, etc. cont MVI cont boost etc (17) Rheumatoid arthritis: Plan: On prednisone + plaquenil chronically for such. No evidence of RA flare. Cont to hold plaquenil Prednisone daily has been resumed (18) Unilateral vocal cord paralysis: Plan: Due to intubation/ventilation years ago at [facility] following a logging accident. Chronic low-pitched hoarse voice is his baseline. (19) Anemia: Plan: H/H remain acceptable. B12, folate, Fe studies wnl. Likely anemia of chronic disease from RA, bone marrow suppression from etoh, blood draws, etc. (20) DVT prophylaxis: Plan: stop heparin 5000 BID resume Eliquis 5mg BID (due to a.fib - diagnosed at [facility] in July) (21) Hypokalemia: Plan: replaced resolved (22) Hypomagnesemia: Plan: replaced resolved Plan daughters updated at bedside once again today cont PT, OT OOB to chair if possible at least once daily, twice would be better slowly making improvement but his recovery will be VERY long as he has been sick for 5+ weeks dating back to early July (hospitalized at [facility] in July for 3+ weeks) ultimately will need rehab at SNF or acute rehab center Admission and Anticipated Discharge Date Admission Date: August 26, 2023 Subjective overnight - confusion, but agitation much less restraints not needed overnight during my visit he was doing stretching exercises with his 2 daughters who were visiting he was very fixated on "showing off his pec" muscles and doing the stretches he knew he was in "[facility]" knew [facility] was coming up, that it was August, and that it was "" (for the year" did not know the day of the week (thought it was ) he denied any abd pain during the visit moving bowels voiding - in fact he wants to get up to the commode rather than use a urinal or bedpan no vomiting eating well - robust in this regard drinking fluids no issues with swallowing no significant cough tele overnight - no a.fib, NSR or mild sinus tach Review of Systems Review of Systems: gen - no fevers cv - no chest pain, no orthopnea pulm - denies dyspnea GI - denies pain; JUSTINA drain with no output Physical Exam Physical Exam: gen - awake, alert, best he has looked in 5+ days; wanted to keep working on his stretching exercises with his kids; very hyper-focused on this; very thin, cachectic neck - no obvious JVD mouth - MMM; low, hoarse, raspy voice -- difficult to understand his speech at times (hoarse voice - chronic); no thrush heart - RRR, s1 s2, no murmur lungs - CTA b/l anteriorly; decreased BS bases R>L; no wheezes; scant rales - airation overall improved abd - distension resolved, BS+, angela covered with a dry dressing; JUSTINA drain in place - no fluid in the bulb; nontender abdomen to palpation ext - very cool to touch (unchanged), mottled appearance of skin in thighs, hemosiderin appearance of shins; pulses 1+ b/l; cap refill 2+ sec psych - awake, alert, follows commands; oriented to person, some dates, and somewhat place (knew it was "[facility]" but thought he was in rehab) Results & Data Results & Data Vital Signs (Past 12 Hours) Vital Signs Temp Pulse Pulse Resp BP Pulse Ox O2 Del Method 09/11/23 16:17 36.7 C 78 18 178/91 H 92 Room Air 09/11/23 12:10 36.5 C 86 18 152/90 H 96 Room Air 09/11/23 10:19 83 09/11/23 10:19 Room Air 09/11/23 08:13 36.5 C 47 L 18 169/88 H 92 Room Air Laboratory Results Laboratory Results 09/11/23 05:30 Sodium 145 Potassium 3.4 L Chloride 108 H Carbon Dioxide 31 Anion Gap 6 BUN 21 Creatinine 0.94 Est Cr Clr Drug Dosing 66.4 Est GFR ( Amer) 93.5 Est GFR (Non-Af Amer) 80.7 BUN/Creatinine Ratio 22.3 H Glucose 102 H Lactate Calcium 8.6 Magnesium 1.7 25-OH Vitamin D Total 43.7 Diagnostic Findings MRI brain - 09/10 - neg for acute or subacute CVA; no ICH PG Care Time/CCT Total # of Minutes Spent Total Time Spent with Patient: Total time spent is greater than 50% in coordination of care (as documented) at patient's floor/unit and/or counseling patient: Coding Level of Care Code 50527 SUB INP/OBS CARE 2/35MIN Diagnoses Acute respiratory failure with hypoxia and hypercapnia J96.01; J96.02 Acute diastolic CHF (congestive heart failure) I50.31 Pneumonia J18.9 Laterality: left Lung location: unspecified part of lung Pneumonia type: due to unspecified organism Perforated viscus R19.8 Intra-abdominal abscess K65.1 SBO (small bowel obstruction) K56.[address] scan, chest R93.89 Acute metabolic encephalopathy G93.41 Sepsis A41.9 Acute respiratory failure type: with hypoxia Sepsis acute organ dysfunction status: with acute organ dysfunction Sepsis type: sepsis due to unspecified organism Severe sepsis shock status: unspecified SHEBA (acute kidney injury) N17.9 Elevated troponin R79.89 COPD (chronic obstructive pulmonary disease) J44.9 Alcohol abuse F10.10 Paroxysmal A-fib I48.0 Polymyalgia rheumatica M35.3 Severe protein-calorie malnutrition E43 Rheumatoid arthritis M06.9 Unilateral vocal cord paralysis J38.01 Anemia D64.9 DVT prophylaxis Z29.9 Hypokalemia E87.6 Hypomagnesemia E83.42 (3) Pneumonia Laterality: left Lung location: unspecified part of lung Pneumonia type: due to unspecified organism Qualified Code(s): J18.9 - Pneumonia, unspecified organism (9) Sepsis Acute respiratory failure type: with hypoxia Sepsis acute organ dysfunction status: with acute organ dysfunction Sepsis type: sepsis due to unspecified organism Severe sepsis shock status: unspecified
[2023-09-11] MEDS: ACETAMINOPHEN 500 MG TAB PO PRN (17:07)
[2023-09-11] MEDS: APIXABAN 5 MG TABLET PO SCH (20:55)
[2023-09-11] MEDS: MELATONIN 3 MG TAB PO SCH (20:57)
[2023-09-11] MEDS ORDERED: QUEtiapine FUMARATE 25 MG TABLET PO SCH (21:00)
--- NOTE | 2023-09-11 21:45 | Communication Note ---
Date of Service: September 11, 2023 9:23pm received notification patient having new onset right sided abd pain 10/10 per nursing patient uncomfortable and shaking, noted behavioral change. BP 169/92, HR 62, SPO2 98, temp 36.4. Patient given prn morphine, tolerated well. On exam patient resting in bed HR now 104. Ordered CBC and lactate. Given recent cecum perf and new abd pain ordered CT A/P with contrast. Diet changed to NPO. CT A/P per my read increased size of pleural effusion on left. No large pockets of free air or fluid. Noted distention of large bowels up to 9cm with gas and stool. WBC slight increase to 13.42, lactate wnl. Patient continues to be on cefepime and metronidazole. Given patient tolerated morphine well will continue to monitor, await official CT read.
[2023-09-11] MEDS ORDERED: OPTIRAY 320 500ml IV ONE (21:53)
[2023-09-11 22:45] LABS: Hematocrit (blood only) 31.6 % (42.0-52.0); Hemoglobin 10.4 g/dl (14.0-18.0); Mean Corpuscular Hemoglobin 30.7 pg (25.0-34.0); Mean Corpuscular Hgb Conc 32.9 g/dL (32.0-36.0); Mean Corpuscular Volume 93.2 fL (80.0-100.0); Mean Platelet Volume 10.5 fL (9.4-12.4); Platelet Count 196 K/uL (130-400); RDW Coefficient of Variation 14.8 % (11.5-14.5); RDW Standard Deviation 47.9 fL (36.4-46.3); Red Blood Count 3.39 M/uL (4.70-6.10); White Blood Count 13.42 K/ul (4.8-10.8)
[2023-09-12] MEDS: BACITRACIN OINT 14 GM TUBE EXT SCH ×4 (00:31→22:50)
--- NOTE | 2023-09-12 01:46 | CT Scan Report ---
Exam(s): CT ABDOMEN + PELVIS With Contrast IV Amt: 76ml EXAM: CT Abdomen and Pelvis With Intravenous Contrast CLINICAL HISTORY: Reason for exam: new onset abd pain. TECHNIQUE: Axial computed tomography images of the abdomen and pelvis with intravenous contrast. CTDI is 19.58 mGy and DLP is 1070.6 mGy-cm. Automated exposure control was utilized for the study. A dose lowering technique was utilized adhering to the principles of ALARA. CONTRAST: Patient received 76ml of IV contrast COMPARISON: No relevant prior studies available. FINDINGS: Lung bases: See below. Pleural space: Moderate right and small left pleural effusions. Airspace consolidations at the lung bases, concerning for multilobar pneumonia. Correlate for aspiration. ABDOMEN: Liver: Mild loculated collection along the posterior aspect of the right hepatic lobe, which measures approximately 12.7 x 2.3 x 8.8 cm. Gallbladder and bile ducts: Unremarkable. No calcified stones. No ductal dilation. Pancreas: Unremarkable. No mass. No ductal dilation. Spleen: Unremarkable. No splenomegaly. Adrenals: Unremarkable. No mass. Kidneys and ureters: Unremarkable. No solid mass. No hydronephrosis. Stomach and bowel: Circumferential wall thickening of the sigmoid colon, correlate for mild colitis. Percutaneous abdominal catheter. Midline laparotomy. Correlate with surgical history. Oral contrast has migrated to the rectum. No obstruction. PELVIS: Appendix: No findings to suggest acute appendicitis. Bladder: Unremarkable. No mass. Reproductive: Unremarkable as visualized. ABDOMEN and PELVIS: Intraperitoneal space: Unremarkable. No free air. No significant fluid collection. Bones/joints: Orthopedic fixation of left posterior rib. No acute fracture. No dislocation. Soft tissues: Anasarca. Vasculature: Unremarkable. No abdominal aortic aneurysm. Lymph nodes: Unremarkable. No enlarged lymph nodes. IMPRESSION: 1. Moderate right and small left pleural effusions. Airspace consolidations at the lung bases, concerning for multilobar pneumonia. Correlate for aspiration. 2. Circumferential wall thickening of the sigmoid colon, correlate for mild colitis. Percutaneous abdominal catheter. Midline laparotomy. Correlate with surgical history. Oral contrast has migrated to the rectum. 3. Mild loculated collection along the posterior aspect of the right hepatic lobe, which measures approximately 12.7 x 2.3 x 8.8 cm. Electronically signed by: Tej Singh MD 09/12/23 01:45 AM
[2023-09-12] MEDS: metroNIDAZOLE 500 MG/100 ML BAG IV SCH ×3 (04:26→21:53)
[2023-09-12] MEDS: CEFEPIME 2,000 MG in SYRINGE 0 ML IV SCH ×3 (04:26→21:54)
[2023-09-12 07:46] LABS: Hematocrit (blood only) 31.2 % (42.0-52.0); Mean Corpuscular Hemoglobin 30.7 pg (25.0-34.0); Mean Corpuscular Hgb Conc 32.1 g/dL (32.0-36.0); Mean Corpuscular Volume 95.7 fL (80.0-100.0); Mean Platelet Volume 9.9 fL (9.4-12.4); Platelet Count 210 K/uL (130-400); RDW Coefficient of Variation 15.2 % (11.5-14.5); RDW Standard Deviation 50.2 fL (36.4-46.3); Red Blood Count 3.26 M/uL (4.70-6.10); White Blood Count 15.39 K/ul (4.8-10.8)
[2023-09-12 08:03] LABS: Calcium 8.7 mg/dl (8.6-10.3); Potassium 3.6 mmol/L (3.5-5.1)
[2023-09-12 08:09] LABS: BUN Creatinine Ratio 24.5 (10-20); Creatinine Clr Calc Pharmacy 63.7 ml/min; Est GFR (African American) 88.9 ml/min; Est GFR (Non-African American) 76.7 ml/min
[2023-09-12] MEDS: UMECLIDINIUM BROMIDE 62.5MCG/BLISTER 7 PUFFS/INHALER INH SCH (09:00)
[2023-09-12] MEDS ORDERED: predniSONE 20 MG TAB PO SCH (09:00)
[2023-09-12] MEDS: APIXABAN 5 MG TABLET PO SCH ×2 (09:31→22:49)
[2023-09-12] MEDS: METOPROLOL TARTRATE 25 MG TAB PO SCH ×2 (09:31→22:49)
[2023-09-12] MEDS: THIAMINE HCL 100 MG TAB PO SCH ×2 (09:32→22:49)
[2023-09-12] MEDS: PANTOprazole 40 MG TAB PO SCH (09:32)
[2023-09-12] MEDS: FOLIC ACID 1 MG TAB PO SCH (09:33)
[2023-09-12] MEDS: MAGNESIUM OXIDE 400 MG TAB PO SCH ×2 (09:33→22:49)
[2023-09-12] MEDS: POTASSIUM CHLORIDE CRTAB 20 MEQ TABCR PO SCH (09:33)
[2023-09-12] MEDS: CHOLECALCIFEROL 1,000 UNITS 25 MCG TAB PO SCH (09:33)
[2023-09-12] MEDS: CEROVITE ADV FORMULA TAB PO SCH (09:33)
[2023-09-12] MEDS: ZINC SULFATE 220 MG CAPSULE PO SCH (09:33)
[2023-09-12] MEDS: FUROSEMIDE 40 MG/4 ML VIAL IV SCH ×2 (09:38→21:54)
[2023-09-12] MEDS: DOCUSATE SODIUM 100 MG CAP PO SCH ×2 (09:40→22:49)
[2023-09-12] MEDS: ACETAMINOPHEN 500 MG TAB PO PRN (09:49)
[2023-09-12] MEDS ORDERED: ACETAMINOPHEN 1,000 MG/100 ML VIAL IV PRN (12:58)
[2023-09-12] MEDS ORDERED: OLANZapine 10 MG/2.1 ML SDV IM PRN (12:59)
[2023-09-12] MEDS: HYDROCORTISONE SOD 50 MG in SYRINGE 0 ML IV SCH ×2 (13:18→21:54)
--- NOTE | 2023-09-12 13:48 | Surgery Progress Note ---
Date of Service September 12, 2023 Assessment & Plan (1) Perforated viscus: Plan: F/U S/P Exploratory Laparotomy and Partial Resection of Cecum with Drainage of Pelvic Abscess, POD 3 slow making progress, waiting for pass gas, speech consult for evaluation aspiration. 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 09/06/2023 7:45 AM F/U S/P Exploratory Laparotomy and Partial Resection of Cecum with Drainage of Pelvic Abscess, POD 6 slow making progress, waiting for pass gas, speech consult for evaluation aspiration. pt was aspiration last night. continue iv antibiotic Dulcolax 10 mg pr pt may benefits from PPN, medicine team please order PPN, PICC line. Thanks. will F/U. 09/07/2023 4:47 PM F/U S/P Exploratory Laparotomy and Partial Resection of Cecum with Drainage of Pelvic Abscess, POD 7 slow making progress, passed gas and BM. , speech consult for evaluation aspiration. continue iv antibiotic started PPN, repeat labs in morning. will F/U. 09/08/2023 3:31 PM F/U S/P Exploratory Laparotomy and Partial Resection of Cecum with Drainage of Pelvic Abscess, POD 8 doing better today, slow making progress, speech consult for evaluation aspiration. continue iv antibiotic started PPN, repeat labs in morning. will F/U. 09/09/2023 7:51 AM F/U S/P Exploratory Laparotomy and Partial Resection of Cecum with Drainage of Pelvic Abscess, POD 9 doing fine today, WBC normal low protein albumin pt will have a swallow evaluation study today. continue iv antibiotic repeat labs in morning. 09/10/2023 4:00 PM F/U S/P Exploratory Laparotomy and Partial Resection of Cecum with Drainage of Pelvic Abscess, POD 10 doing better today, tolerated diet I update to family members about pathology report. may remove JUSTINA in 1-2 days. will F/U. 09/11/2023 4:27 PM F/U S/P Exploratory Laparotomy and Partial Resection of Cecum with Drainage of Pelvic Abscess, POD 11 tolerated diet may remove JUSTINA tomorrow. . will F/U. 09/12/2023 1:47 PM F/U S/P Exploratory Laparotomy and Partial Resection of Cecum with Drainage of Pelvic Abscess, POD 12 tolerated diet I remove JUSTINA today. will F/U. Admission and Anticipated Discharge Date Admission Date: August 26, 2023 Supervising Physician Co-Signing Physician Notes I saw and examined this patient this am. He is more awake at this time of the morning compared to yesterday am. His daughter is at the bedside confirming his sleep patterns are off at home and even worse here at this time noting he went to sleep at 5 am one morning then was awakened/back up at 9am. He is lethargic but able to respond to me. His O2 saturation requirement is decreased today to 4L face mask and he continues to Sat at 100%. He remains afebrile. He is denying abdominal pain, nausea, and believes he passed a small amount of flatus at some point yesterday. I would keep him NPO for today until we can be sure he is having more consistent bowel function and is generally well awake. Keep blinds open, lights on in the room during the day time. Discussed a potential mild, non-sedating sleep aid at bedtime tonight like Melatonin. OOB to chair today. Encourage incentive spirometer. PT eval and treat Dr. Sorenson will return tomorrow for continued surgical follow up and assessment. Subjective pt is doing fine, no fever, no abdominal pain, tolerated diet, JUSTINA minimal. Review of Systems Constitutional: no fever and no chills Eyes: as per Subjective / HPI Respiratory: + dyspnea; no cough Cardiovascular: no chest pain Gastrointestinal: + abdominal pain; no nausea and no vomit ing Genitourinary: no dysuria Neurologic: + generalized weakness Psychiatric: as per Subjective / HPI Endocrine: as per Subjective / HPI Hematologic / Lymphatic: Anemia Physical Exam Eyes: PERRL, conjunctivae normal, anicteric sclerae Neck: trachea midline, no thyromegaly Respiratory: Auscultation: lungs clear to auscultation bilaterally Cardiovascular: Rate/Rhythm: + irregularly irregular Gastrointestinal (Abdomen): soft, NT, ND, BS +, incision intact, no redness, JUSTINA intact. Neurologic: patellar DTR's 2+ bilat, sensation intact and PERRL, EOMI, accommodation nl, no face palsy, no dysarthria Results & Data Vital Signs (Past 12 Hours) Vital Signs Temp Pulse Pulse Resp BP Pulse Ox O2 Del Method 09/12/23 12:04 36.5 C 84 18 137/81 93 Room Air 09/12/23 08:14 36.5 C 73 18 176/93 H 91 Room Air 09/12/23 07:44 100 H Laboratory Results Lab Results 08/26/23 08/26/23 08/26/23 Range/Units 17:27 17:38 17:47 WBC 17.19 H (4.8-10.8) K/ul RBC 3.31 L (4.70-6.10) M/uL Hgb 10.4 L (14.0-18.0) g/dl POC Hgb 10.9 L 11.6 L (14.0-18.0) g/dl Hct 31.4 L (42.0-52.0) % POC Hct 32 L 34 L (42-52) % MCV 94.9 (80.0-100.0) fL MCH 31.4 (25.0-34.0) pg MCHC 33.1 (32.0-36.0) g/dL RDW Std Deviation 46.5 H (36.4-46.3) fL RDW Coeff of Jesse 13.4 (11.5-14.5) % Plt Count 373 (130-400) K/uL MPV 9.7 (9.4-12.4) fL Immature Gran % (Auto) 1.2 % Neut % (Auto) 87.6 % Lymph % (Auto) 5.1 % Payne % (Auto) 5.9 % Eos % (Auto) 0.0 % Baso % (Auto) 0.2 % Neut # (Auto) 15.06 H (1.40-6.50) K/uL Lymph # (Auto) 0.88 L (1.20-3.40) K/uL Payne # (Auto) 1.01 H (0.11-0.59) K/uL Eos # (Auto) 0.00 (0.00-0.50) K/uL Baso # (Auto) 0.04 (0.00-0.20) K/uL Immature Gran # (Auto) 0.20 (0.01-0.20) K/uL Platelet Estimate (Normal) RBC Morphology Echinocytes PT 14.3 H (9.0-12.0) Seconds INR 1.3 H (0.9-1.1) APTT 27 (21-31) Seconds PTT Ratio 1.0 D-Dimer (0-500) ug/L FEU Sample Site POC pH 7.44 (7.35-7.45) POC pCO2 35 (35-46) mmHg POC pO2 135 H (80-95) mmHg POC HCO3 23 (19-24) lachelle/L POC Total CO2 24 26 (24-31) mmol/L POC Base Excess -1.0 (-9-1.8) lachelle/L ABG pH (7.35-7.45) ABG pH (Temp Correct) (7.35-7.45) ABG pCO2 (35-46) mmHg ABG pCO2 (Temp Corrct (35-46) mmHg ABG pO2 (80-95) mmHg POC ABG pO2 at Pt Temp ABG HCO3 (19-24) mmol/L POC ABG O2 Sat 99.0 H (90-95) % ABG O2 Saturation (90-95) % ABG Base Excess (-9-1.8) mEq/L Mikey Test (Pos) VBG pH (7.36-7.41) VBG pCO2 (38-50) mmHg VBG pO2 mmHg VBG HCO3 mmol/L VBG O2 Saturation % VBG Base Excess mEq/L Oxygen Given O2 Delivery Device POC O2 Rate POC FiO2 % Tidal Volume PEEP POC Sodium 140 140 (135-144) mmol/L Sodium 141 (136-145) mmol/L POC Potassium 4.1 4.4 (3.3-5.0) mmol/L Potassium 3.9 (3.5-5.1) mmol/L POC Chloride 100 L (101-112) mmol/L Chloride 102 (98-107) mmol/L Carbon Dioxide 23 (21-32) mmol/L Anion Gap 16 H (3-11) POC Anion Gap 19.0 (16-25) mmol/L POC BUN 50 H (7-18) mg/dl BUN 57 H (6-23) mg/dl Creatinine 2.43 H (0.6-1.4) mg/dl POC Creatinine 2.7 H (0.6-1.3) mg/dl Est Cr Clr Drug Dosing Not Reportable Est GFR ( Amer) 29.7 ml/min Est GFR (Non-Af Amer) 25.6 ml/min BUN/Creatinine Ratio 23.5 H (10-20) Glucose 137 H (70-99(Fasting)) mg/dl POC Glucose (70-99) mg/dl POC Glucose (other) 134 H (70-99) mg/dl Lactate 2.7 H* (0.4-2.0) mmol/L Calcium 9.4 (8.6-10.3) mg/dl POC Ioniz Calcium José Antonio 1.14 (1.12-1.32) mmol/l Phosphorus (2.5-4.9) mg/dl Magnesium 2.0 (1.7-2.4) mg/dl Iron (35-175) mcg/dl TIBC (250-450) mcg/dl Unsaturated IBC (155-355) mcg/dl Transferrin % Sat (20-50) % Ferritin (8-388) ng/ml Total Bilirubin 0.6 (0.2-1.0) mg/dl Direct Bilirubin 0.2 (0-0.2) mg/dl AST 25 (13-39) U/L ALT 37 (7-52) U/L Alkaline Phosphatase 281 H (34-104) U/L Ammonia (18-72) umol/L Troponin I High Sens 79.5 H* (0-20) pg/ml B-Natriuretic Peptide (0-100) pg/ml Total Protein 6.9 (6.0-8.3) gm/dl Albumin 3.7 (3.4-5.0) gm/dl Globulin (2.5-4.0) gm/dl Albumin/Globulin Ratio (0.9-2) Triglycerides (0-150) mg/dl Vitamin B1 (8-30) nmol/L Vitamin B12 (180-914) pg/ml 25-OH Vitamin D Total (30-100) ng/ml Folate (>5.38) ng/ml Procalcitonin 0.34 (0-0.5) ng/ml TSH (0.300-4.500) uIu/ml Free T4 (0.61-1.60) ng/dl Urine Color Urine Appearance (Clear) Urine pH (4.5-7.5) Ur Specific Grant (1.000-1.030) Urine Protein (Negative) Urine Glucose (UA) (Negative) Urine Ketones (Negative) Urine Blood (Negative) Urine Nitrite (Negative) Urine Bilirubin (Negative) Urine Urobilinogen (Negative) Ur Leukocyte Esterase (Negative) Urine WBC (Auto) Urine RBC (Auto) U Hyaline Cast (Auto) U Epithel Cells (Auto) Urine Bacteria (Auto) Ur Renal Epithelial Cell Urine Crystals Calcium Oxalate Crystal Uric Acid Crystals Triple Phos Crystals Other Crystals Amorphous Sediment Granular Casts Waxy Casts RBC Casts WBC Casts Pathogenic Casts Other Casts Urine Mucus Urine Other Urine Trichomonas Urine Yeast Urine Sperm Ur Oval Fat Bodies Ur Culture Indicated? Nasal Screen MRSA (PCR) (Negative) Random Vancomycin (10-20) mcg/ml Adenovirus (PCR) (NotDetected) B. pertussis DNA (PCR) (NotDetected) B.parapertussis DNA PCR (NotDetected) C. pneumoniae DNA (PCR) (NotDetected) Coronavirus OC43 (PCR) (NotDetected) Coronavirus HKU1 (PCR) (NotDetected) Coronavirus 229E (PCR) (NotDetected) SARS-CoV-2 (PCR) (NotDetected) Coronavirus NL63 (PCR) (NotDetected) Human Metapneumovir PCR (NotDetected) Influenza Type A (PCR) (NotDetected) Influenza Type B (PCR) (NotDetected) M. pneumoniae (PCR) (NotDetected) Parainfluenza 1 (PCR) (NotDetected) Parainfluenza 2 (PCR) (NotDetected) Parainfluenza 3 (PCR) (NotDetected) Parainfluenza 4 (PCR) (NotDetected) RSV (RT-PCR) (Neg) RSV (PCR) (NotDetected) Entero/Rhino (PCR) (NotDetected) Blood Type Blood Type Recheck Antibody Screen Crossmatch 08/26/23 08/26/23 08/26/23 Range/Units 18:26 19:39 19:40 WBC (4.8-10.8) K/ul RBC (4.70-6.10) M/uL Hgb (14.0-18.0) g/dl POC Hgb (14.0-18.0) g/dl Hct (42.0-52.0) % POC Hct (42-52) % MCV (80.0-100.0) fL MCH (25.0-34.0) pg MCHC (32.0-36.0) g/dL RDW Std Deviation (36.4-46.3) fL RDW Coeff of Jesse (11.5-14.5) % Plt Count (130-400) K/uL MPV (9.4-12.4) fL Immature Gran % (Auto) % Neut % (Auto) % Lymph % (Auto) % Payne % (Auto) % Eos % (Auto) % Baso % (Auto) % Neut # (Auto) (1.40-6.50) K/uL Lymph # (Auto) (1.20-3.40) K/uL Payne # (Auto) (0.11-0.59) K/uL Eos # (Auto) (0.00-0.50) K/uL Baso # (Auto) (0.00-0.20) K/uL Immature Gran # (Auto) (0.01-0.20) K/uL Platelet Estimate (Normal) RBC Morphology Echinocytes PT (9.0-12.0) Seconds INR (0.9-1.1) APTT (21-31) Seconds PTT Ratio D-Dimer (0-500) ug/L FEU Sample Site POC pH (7.35-7.45) POC pCO2 (35-46) mmHg POC pO2 (80-95) mmHg POC HCO3 (19-24) lachelle/L POC Total CO2 (24-31) mmol/L POC Base Excess (-9-1.8) lachelle/L ABG pH (7.35-7.45) ABG pH (Temp Correct) (7.35-7.45) ABG pCO2 (35-46) mmHg ABG pCO2 (Temp Corrct (35-46) mmHg ABG pO2 (80-95) mmHg POC ABG pO2 at Pt Temp ABG HCO3 (19-24) mmol/L POC ABG O2 Sat (90-95) % ABG O2 Saturation (90-95) % ABG Base Excess (-9-1.8) mEq/L Mikey Test (Pos) VBG pH (7.36-7.41) VBG pCO2 (38-50) mmHg VBG pO2 mmHg VBG HCO3 mmol/L VBG O2 Saturation % VBG Base Excess mEq/L Oxygen Given O2 Delivery Device POC O2 Rate POC FiO2 % Tidal Volume PEEP POC Sodium (135-144) mmol/L Sodium (136-145) mmol/L POC Potassium (3.3-5.0) mmol/L Potassium (3.5-5.1) mmol/L POC Chloride (101-112) mmol/L Chloride (98-107) mmol/L Carbon Dioxide (21-32) mmol/L Anion Gap (3-11) POC Anion Gap (16-25) mmol/L POC BUN (7-18) mg/dl BUN (6-23) mg/dl Creatinine (0.6-1.4) mg/dl POC Creatinine (0.6-1.3) mg/dl Est Cr Clr Drug Dosing Est GFR ( Amer) ml/min Est GFR (Non-Af Amer) ml/min BUN/Creatinine Ratio (10-20) Glucose (70-99(Fasting)) mg/dl POC Glucose (70-99) mg/dl POC Glucose (other) (70-99) mg/dl Lactate 2.9 H* (0.4-2.0) mmol/L Calcium (8.6-10.3) mg/dl POC Ioniz Calcium José Antonio (1.12-1.32) mmol/l Phosphorus (2.5-4.9) mg/dl Magnesium (1.7-2.4) mg/dl Iron (35-175) mcg/dl TIBC (250-450) mcg/dl Unsaturated IBC (155-355) mcg/dl Transferrin % Sat (20-50) % Ferritin (8-388) ng/ml Total Bilirubin (0.2-1.0) mg/dl Direct Bilirubin (0-0.2) mg/dl AST (13-39) U/L ALT (7-52) U/L Alkaline Phosphatase (34-104) U/L Ammonia (18-72) umol/L Troponin I High Sens 75.8 H* (0-20) pg/ml B-Natriuretic Peptide (0-100) pg/ml Total Protein (6.0-8.3) gm/dl Albumin (3.4-5.0) gm/dl Globulin (2.5-4.0) gm/dl Albumin/Globulin Ratio (0.9-2) Triglycerides (0-150) mg/dl Vitamin B1 (8-30) nmol/L Vitamin B12 (180-914) pg/ml 25-OH Vitamin D Total (30-100) ng/ml Folate (>5.38) ng/ml Procalcitonin (0-0.5) ng/ml TSH (0.300-4.500) uIu/ml Free T4 (0.61-1.60) ng/dl Urine Color Urine Appearance (Clear) Urine pH (4.5-7.5) Ur Specific Grant (1.000-1.030) Urine Protein (Negative) Urine Glucose (UA) (Negative) Urine Ketones (Negative) Urine Blood (Negative) Urine Nitrite (Negative) Urine Bilirubin (Negative) Urine Urobilinogen (Negative) Ur Leukocyte Esterase (Negative) Urine WBC (Auto) Urine RBC (Auto) U Hyaline Cast (Auto) U Epithel Cells (Auto) Urine Bacteria (Auto) Ur Renal Epithelial Cell Urine Crystals Calcium Oxalate Crystal Uric Acid Crystals Triple Phos Crystals Other Crystals Amorphous Sediment Granular Casts Waxy Casts RBC Casts WBC Casts Pathogenic Casts Other Casts Urine Mucus Urine Other Urine Trichomonas Urine Yeast Urine Sperm Ur Oval Fat Bodies Ur Culture Indicated? Nasal Screen MRSA (PCR) (Negative) Random Vancomycin (10-20) mcg/ml Adenovirus (PCR) Not Detected (NotDetected) B. pertussis DNA (PCR) Not Detected (NotDetected) B.parapertussis DNA PCR Not Detected (NotDetected) C. pneumoniae DNA (PCR) Not Detected (NotDetected) Coronavirus OC43 (PCR) Not Detected (NotDetected) Coronavirus HKU1 (PCR) Not Detected (NotDetected) Coronavirus 229E (PCR) Not Detected (NotDetected) SARS-CoV-2 (PCR) Not Detected (NotDetected) Coronavirus NL63 (PCR) Not Detected (NotDetected) Human Metapneumovir PCR Not Detected (NotDetected) Influenza Type A (PCR) Not Detected (NotDetected) Influenza Type B (PCR) Not Detected (NotDetected) M. pneumoniae (PCR) Not Detected (NotDetected) Parainfluenza 1 (PCR) Not Detected (NotDetected) Parainfluenza 2 (PCR) Not Detected (NotDetected) Parainfluenza 3 (PCR) Not Detected (NotDetected) Parainfluenza 4 (PCR) Not Detected (NotDetected) RSV (RT-PCR) (Neg) RSV (PCR) Not Detected (NotDetected) Entero/Rhino (PCR) Not Detected (NotDetected) Blood Type Blood Type Recheck Antibody Screen Crossmatch 08/26/23 08/26/23 08/27/23 Range/Units 21:22 21:24 00:07 WBC (4.8-10.8) K/ul RBC (4.70-6.10) M/uL Hgb (14.0-18.0) g/dl POC Hgb (14.0-18.0) g/dl Hct (42.0-52.0) % POC Hct (42-52) % MCV (80.0-100.0) fL MCH (25.0-34.0) pg MCHC (32.0-36.0) g/dL RDW Std Deviation (36.4-46.3) fL RDW Coeff of Jesse (11.5-14.5) % Plt Count (130-400) K/uL MPV (9.4-12.4) fL Immature Gran % (Auto) % Neut % (Auto) % Lymph % (Auto) % Payne % (Auto) % Eos % (Auto) % Baso % (Auto) % Neut # (Auto) (1.40-6.50) K/uL Lymph # (Auto) (1.20-3.40) K/uL Payne # (Auto) (0.11-0.59) K/uL Eos # (Auto) (0.00-0.50) K/uL Baso # (Auto) (0.00-0.20) K/uL Immature Gran # (Auto) (0.01-0.20) K/uL Platelet Estimate (Normal) RBC Morphology Echinocytes PT (9.0-12.0) Seconds INR (0.9-1.1) APTT (21-31) Seconds PTT Ratio D-Dimer (0-500) ug/L FEU Sample Site POC pH (7.35-7.45) POC pCO2 (35-46) mmHg POC pO2 (80-95) mmHg POC HCO3 (19-24) lachelle/L POC Total CO2 (24-31) mmol/L POC Base Excess (-9-1.8) lachelle/L ABG pH 7.41 (7.35-7.45) ABG pH (Temp Correct) (7.35-7.45) ABG pCO2 37 (35-46) mmHg ABG pCO2 (Temp Corrct (35-46) mmHg ABG pO2 124 H (80-95) mmHg POC ABG pO2 at Pt Temp ABG HCO3 24 (19-24) mmol/L POC ABG O2 Sat (90-95) % ABG O2 Saturation 98.3 H (90-95) % ABG Base Excess -0.8 (-9-1.8) mEq/L Mikey Test Pos (Pos) VBG pH (7.36-7.41) VBG pCO2 (38-50) mmHg VBG pO2 mmHg VBG HCO3 mmol/L VBG O2 Saturation % VBG Base Excess mEq/L Oxygen Given 55% O2 Delivery Device POC O2 Rate POC FiO2 % Tidal Volume PEEP POC Sodium (135-144) mmol/L Sodium (136-145) mmol/L POC Potassium (3.3-5.0) mmol/L Potassium (3.5-5.1) mmol/L POC Chloride (101-112) mmol/L Chloride (98-107) mmol/L Carbon Dioxide (21-32) mmol/L Anion Gap (3-11) POC Anion Gap (16-25) mmol/L POC BUN (7-18) mg/dl BUN (6-23) mg/dl Creatinine (0.6-1.4) mg/dl POC Creatinine (0.6-1.3) mg/dl Est Cr Clr Drug Dosing Est GFR ( Amer) ml/min Est GFR (Non-Af Amer) ml/min BUN/Creatinine Ratio (10-20) Glucose (70-99(Fasting)) mg/dl POC Glucose (70-99) mg/dl POC Glucose (other) (70-99) mg/dl Lactate 1.1 (0.4-2.0) mmol/L Calcium (8.6-10.3) mg/dl POC Ioniz Calcium José Antonio (1.12-1.32) mmol/l Phosphorus (2.5-4.9) mg/dl Magnesium (1.7-2.4) mg/dl Iron (35-175) mcg/dl TIBC (250-450) mcg/dl Unsaturated IBC (155-355) mcg/dl Transferrin % Sat (20-50) % Ferritin (8-388) ng/ml Total Bilirubin (0.2-1.0) mg/dl Direct Bilirubin (0-0.2) mg/dl AST (13-39) U/L ALT (7-52) U/L Alkaline Phosphatase (34-104) U/L Ammonia (18-72) umol/L Troponin I High Sens (0-20) pg/ml B-Natriuretic Peptide (0-100) pg/ml Total Protein (6.0-8.3) gm/dl Albumin (3.4-5.0) gm/dl Globulin (2.5-4.0) gm/dl Albumin/Globulin Ratio (0.9-2) Triglycerides (0-150) mg/dl Vitamin B1 (8-30) nmol/L Vitamin B12 (180-914) pg/ml 25-OH Vitamin D Total (30-100) ng/ml Folate (>5.38) ng/ml Procalcitonin (0-0.5) ng/ml TSH (0.300-4.500) uIu/ml Free T4 (0.61-1.60) ng/dl Urine Color Yellow Urine Appearance Cloudy A (Clear) Urine pH 5.5 (4.5-7.5) Ur Specific Grant >= 1.030 (1.000-1.030) Urine Protein 3+ H (Negative) Urine Glucose (UA) Negative (Negative) Urine Ketones Negative (Negative) Urine Blood 3+ H (Negative) Urine Nitrite Negative (Negative) Urine Bilirubin 1+ H (Negative) Urine Urobilinogen Negative (Negative) Ur Leukocyte Esterase Trace H (Negative) Urine WBC (Auto) Cancelled Urine RBC (Auto) Cancelled U Hyaline Cast (Auto) Cancelled U Epithel Cells (Auto) Cancelled Urine Bacteria (Auto) Cancelled Ur Renal Epithelial Cell Cancelled Urine Crystals Cancelled Calcium Oxalate Crystal Cancelled Uric Acid Crystals Cancelled Triple Phos Crystals Cancelled Other Crystals Cancelled Amorphous Sediment Cancelled Granular Casts Cancelled Waxy Casts Cancelled RBC Casts Cancelled WBC Casts Cancelled Pathogenic Casts Cancelled Other Casts Cancelled Urine Mucus Cancelled Urine Other Cancelled Urine Trichomonas Cancelled Urine Yeast Cancelled Urine Sperm Cancelled Ur Oval Fat Bodies Cancelled Ur Culture Indicated? Cancelled Nasal Screen MRSA (PCR) Negative (Negative) Random Vancomycin (10-20) mcg/ml Adenovirus (PCR) (NotDetected) B. pertussis DNA (PCR) (NotDetected) B.parapertussis DNA PCR (NotDetected) C. pneumoniae DNA (PCR) (NotDetected) Coronavirus OC43 (PCR) (NotDetected) Coronavirus HKU1 (PCR) (NotDetected) Coronavirus 229E (PCR) (NotDetected) SARS-CoV-2 (PCR) (NotDetected) Coronavirus NL63 (PCR) (NotDetected) Human Metapneumovir PCR (NotDetected) Influenza Type A (PCR) (NotDetected) Influenza Type B (PCR) (NotDetected) M. pneumoniae (PCR) (NotDetected) Parainfluenza 1 (PCR) (NotDetected) Parainfluenza 2 (PCR) (NotDetected) Parainfluenza 3 (PCR) (NotDetected) Parainfluenza 4 (PCR) (NotDetected) RSV (RT-PCR) (Neg) RSV (PCR) (NotDetected) Entero/Rhino (PCR) (NotDetected) Blood Type Blood Type Recheck Antibody Screen Crossmatch 08/27/23 08/27/23 08/27/23 Range/Units 01:27 06:04 06:08 WBC 18.54 H (4.8-10.8) K/ul RBC 2.88 L (4.70-6.10) M/uL Hgb 9.0 L (14.0-18.0) g/dl POC Hgb (14.0-18.0) g/dl Hct 27.4 L (42.0-52.0) % POC Hct (42-52) % MCV 95.1 (80.0-100.0) fL MCH 31.3 (25.0-34.0) pg MCHC 32.8 (32.0-36.0) g/dL RDW Std Deviation 46.9 H (36.4-46.3) fL RDW Coeff of Jesse 13.4 (11.5-14.5) % Plt Count 267 (130-400) K/uL MPV 9.5 (9.4-12.4) fL Immature Gran % (Auto) 0.8 % Neut % (Auto) 94.0 % Lymph % (Auto) 2.5 % Payne % (Auto) 2.5 % Eos % (Auto) 0.0 % Baso % (Auto) 0.2 % Neut # (Auto) 17.43 H (1.40-6.50) K/uL Lymph # (Auto) 0.47 L (1.20-3.40) K/uL Payne # (Auto) 0.47 (0.11-0.59) K/uL Eos # (Auto) 0.00 (0.00-0.50) K/uL Baso # (Auto) 0.03 (0.00-0.20) K/uL Immature Gran # (Auto) 0.14 (0.01-0.20) K/uL Platelet Estimate (Normal) RBC Morphology Echinocytes PT (9.0-12.0) Seconds INR (0.9-1.1) APTT (21-31) Seconds PTT Ratio D-Dimer (0-500) ug/L FEU Sample Site POC pH (7.35-7.45) POC pCO2 (35-46) mmHg POC pO2 (80-95) mmHg POC HCO3 (19-24) lachelle/L POC Total CO2 (24-31) mmol/L POC Base Excess (-9-1.8) lachelle/L ABG pH 7.42 7.44 (7.35-7.45) ABG pH (Temp Correct) (7.35-7.45) ABG pCO2 36 32 L (35-46) mmHg ABG pCO2 (Temp Corrct (35-46) mmHg ABG pO2 81 86 (80-95) mmHg POC ABG pO2 at Pt Temp ABG HCO3 23 22 (19-24) mmol/L POC ABG O2 Sat (90-95) % ABG O2 Saturation 96.2 H 97.2 H (90-95) % ABG Base Excess -0.7 -1.6 (-9-1.8) mEq/L Mikey Test Pos Pos (Pos) VBG pH (7.36-7.41) VBG pCO2 (38-50) mmHg VBG pO2 mmHg VBG HCO3 mmol/L VBG O2 Saturation % VBG Base Excess mEq/L Oxygen Given 4L 5L O2 Delivery Device POC O2 Rate POC FiO2 % Tidal Volume PEEP POC Sodium (135-144) mmol/L Sodium 142 (136-145) mmol/L POC Potassium (3.3-5.0) mmol/L Potassium 3.8 (3.5-5.1) mmol/L POC Chloride (101-112) mmol/L Chloride 108 H (98-107) mmol/L Carbon Dioxide 22 (21-32) mmol/L Anion Gap 12 H (3-11) POC Anion Gap (16-25) mmol/L POC BUN (7-18) mg/dl BUN 68 H (6-23) mg/dl Creatinine 2.75 H D (0.6-1.4) mg/dl POC Creatinine (0.6-1.3) mg/dl Est Cr Clr Drug Dosing 21.7 Est GFR ( Amer) 25.5 ml/min Est GFR (Non-Af Amer) 22.0 ml/min BUN/Creatinine Ratio 24.7 H (10-20) Glucose 145 H (70-99(Fasting)) mg/dl POC Glucose (70-99) mg/dl POC Glucose (other) (70-99) mg/dl Lactate (0.4-2.0) mmol/L Calcium 8.5 L (8.6-10.3) mg/dl POC Ioniz Calcium José Antonio (1.12-1.32) mmol/l Phosphorus (2.5-4.9) mg/dl Magnesium 1.7 (1.7-2.4) mg/dl Iron (35-175) mcg/dl TIBC (250-450) mcg/dl Unsaturated IBC (155-355) mcg/dl Transferrin % Sat (20-50) % Ferritin (8-388) ng/ml Total Bilirubin (0.2-1.0) mg/dl Direct Bilirubin (0-0.2) mg/dl AST (13-39) U/L ALT (7-52) U/L Alkaline Phosphatase (34-104) U/L Ammonia (18-72) umol/L Troponin I High Sens 76.2 H* (0-20) pg/ml B-Natriuretic Peptide (0-100) pg/ml Total Protein (6.0-8.3) gm/dl Albumin (3.4-5.0) gm/dl Globulin (2.5-4.0) gm/dl Albumin/Globulin Ratio (0.9-2) Triglycerides (0-150) mg/dl Vitamin B1 (8-30) nmol/L Vitamin B12 (180-914) pg/ml 25-OH Vitamin D Total (30-100) ng/ml Folate (>5.38) ng/ml Procalcitonin (0-0.5) ng/ml TSH (0.300-4.500) uIu/ml Free T4 (0.61-1.60) ng/dl Urine Color Urine Appearance (Clear) Urine pH (4.5-7.5) Ur Specific Grant (1.000-1.030) Urine Protein (Negative) Urine Glucose (UA) (Negative) Urine Ketones (Negative) Urine Blood (Negative) Urine Nitrite (Negative) Urine Bilirubin (Negative) Urine Urobilinogen (Negative) Ur Leukocyte Esterase (Negative) Urine WBC (Auto) Urine RBC (Auto) U Hyaline Cast (Auto) U Epithel Cells (Auto) Urine Bacteria (Auto) Ur Renal Epithelial Cell Urine Crystals Calcium Oxalate Crystal Uric Acid Crystals Triple Phos Crystals Other Crystals Amorphous Sediment Granular Casts Waxy Casts RBC Casts WBC Casts Pathogenic Casts Other Casts Urine Mucus Urine Other Urine Trichomonas Urine Yeast Urine Sperm Ur Oval Fat Bodies Ur Culture Indicated? Nasal Screen MRSA (PCR) (Negative) Random Vancomycin (10-20) mcg/ml Adenovirus (PCR) (NotDetected) B. pertussis DNA (PCR) (NotDetected) B.parapertussis DNA PCR (NotDetected) C. pneumoniae DNA (PCR) (NotDetected) Coronavirus OC43 (PCR) (NotDetected) Coronavirus HKU1 (PCR) (NotDetected) Coronavirus 229E (PCR) (NotDetected) SARS-CoV-2 (PCR) (NotDetected) Coronavirus NL63 (PCR) (NotDetected) Human Metapneumovir PCR (NotDetected) Influenza Type A (PCR) (NotDetected) Influenza Type B (PCR) (NotDetected) M. pneumoniae (PCR) (NotDetected) Parainfluenza 1 (PCR) (NotDetected) Parainfluenza 2 (PCR) (NotDetected) Parainfluenza 3 (PCR) (NotDetected) Parainfluenza 4 (PCR) (NotDetected) RSV (RT-PCR) (Neg) RSV (PCR) (NotDetected) Entero/Rhino (PCR) (NotDetected) Blood Type Blood Type Recheck Antibody Screen Crossmatch 08/28/23 08/29/23 08/30/23 Range/Units 07:17 05:54 05:39 WBC 14.95 H 13.31 H 16.01 H (4.8-10.8) K/ul RBC 3.01 L 3.03 L 3.31 L (4.70-6.10) M/uL Hgb 9.3 L 9.5 L 10.3 L (14.0-18.0) g/dl POC Hgb (14.0-18.0) g/dl Hct 29.4 L 30.1 L 31.7 L (42.0-52.0) % POC Hct (42-52) % MCV 97.7 99.3 95.8 (80.0-100.0) fL MCH 30.9 31.4 31.1 (25.0-34.0) pg MCHC 31.6 L 31.6 L 32.5 (32.0-36.0) g/dL RDW Std Deviation 48.7 H 48.3 H 47.5 H (36.4-46.3) fL RDW Coeff of Jesse 13.6 13.6 13.6 (11.5-14.5) % Plt Count 252 242 260 (130-400) K/uL MPV 9.3 L 9.6 9.3 L (9.4-12.4) fL Immature Gran % (Auto) 0.7 0.5 0.7 % Neut % (Auto) 93.6 91.4 87.3 % Lymph % (Auto) 2.3 3.6 5.2 % Payne % (Auto) 3.3 4.4 6.5 % Eos % (Auto) 0.0 0.0 0.2 % Baso % (Auto) 0.1 0.1 0.1 % Neut # (Auto) 14.00 H 12.17 H 13.95 H (1.40-6.50) K/uL Lymph # (Auto) 0.34 L 0.48 L 0.84 L (1.20-3.40) K/uL Payne # (Auto) 0.49 0.59 1.04 H (0.11-0.59) K/uL Eos # (Auto) 0.00 0.00 0.04 (0.00-0.50) K/uL Baso # (Auto) 0.02 0.01 0.02 (0.00-0.20) K/uL Immature Gran # (Auto) 0.10 0.06 0.12 (0.01-0.20) K/uL Platelet Estimate (Normal) RBC Morphology Unremarkable Unremarkable Echinocytes PT (9.0-12.0) Seconds INR (0.9-1.1) APTT (21-31) Seconds PTT Ratio D-Dimer (0-500) ug/L FEU Sample Site POC pH (7.35-7.45) POC pCO2 (35-46) mmHg POC pO2 (80-95) mmHg POC HCO3 (19-24) lachelle/L POC Total CO2 (24-31) mmol/L POC Base Excess (-9-1.8) lachelle/L ABG pH (7.35-7.45) ABG pH (Temp Correct) (7.35-7.45) ABG pCO2 (35-46) mmHg ABG pCO2 (Temp Corrct (35-46) mmHg ABG pO2 (80-95) mmHg POC ABG pO2 at Pt Temp ABG HCO3 (19-24) mmol/L POC ABG O2 Sat (90-95) % ABG O2 Saturation (90-95) % ABG Base Excess (-9-1.8) mEq/L Mikey Test (Pos) VBG pH (7.36-7.41) VBG pCO2 (38-50) mmHg VBG pO2 mmHg VBG HCO3 mmol/L VBG O2 Saturation % VBG Base Excess mEq/L Oxygen Given O2 Delivery Device POC O2 Rate POC FiO2 % Tidal Volume PEEP POC Sodium (135-144) mmol/L Sodium 141 141 140 (136-145) mmol/L POC Potassium (3.3-5.0) mmol/L Potassium 3.4 L 4.1 D 4.5 (3.5-5.1) mmol/L POC Chloride (101-112) mmol/L Chloride 107 108 H 108 H (98-107) mmol/L Carbon Dioxide 25 27 23 (21-32) mmol/L Anion Gap 9 6 9 (3-11) POC Anion Gap (16-25) mmol/L POC BUN (7-18) mg/dl BUN 53 H 40 H 36 H (6-23) mg/dl Creatinine 2.02 H D 1.67 H D 1.98 H D (0.6-1.4) mg/dl POC Creatinine (0.6-1.3) mg/dl Est Cr Clr Drug Dosing 30.4 36.5 30.8 Est GFR ( Amer) 37.1 46.7 38.0 ml/min Est GFR (Non-Af Amer) 32.0 40.3 32.8 ml/min BUN/Creatinine Ratio 26.2 H 24.0 H 18.2 (10-20) Glucose 126 H 102 H 95 (70-99(Fasting)) mg/dl POC Glucose (70-99) mg/dl POC Glucose (other) (70-99) mg/dl Lactate (0.4-2.0) mmol/L Calcium 9.1 9.0 9.2 (8.6-10.3) mg/dl POC Ioniz Calcium José Antonio (1.12-1.32) mmol/l Phosphorus (2.5-4.9) mg/dl Magnesium 1.7 1.7 (1.7-2.4) mg/dl Iron 31 L (35-175) mcg/dl TIBC 176 L (250-450) mcg/dl Unsaturated IBC 145 L (155-355) mcg/dl Transferrin % Sat 18 L (20-50) % Ferritin 197.8 (8-388) ng/ml Total Bilirubin (0.2-1.0) mg/dl Direct Bilirubin (0-0.2) mg/dl AST (13-39) U/L ALT (7-52) U/L Alkaline Phosphatase (34-104) U/L Ammonia (18-72) umol/L Troponin I High Sens (0-20) pg/ml B-Natriuretic Peptide (0-100) pg/ml Total Protein (6.0-8.3) gm/dl Albumin (3.4-5.0) gm/dl Globulin (2.5-4.0) gm/dl Albumin/Globulin Ratio (0.9-2) Triglycerides (0-150) mg/dl Vitamin B1 582 H (8-30) nmol/L Vitamin B12 851 (180-914) pg/ml 25-OH Vitamin D Total (30-100) ng/ml Folate > 22.30 (>5.38) ng/ml Procalcitonin (0-0.5) ng/ml TSH (0.300-4.500) uIu/ml Free T4 (0.61-1.60) ng/dl Urine Color Urine Appearance (Clear) Urine pH (4.5-7.5) Ur Specific Grant (1.000-1.030) Urine Protein (Negative) Urine Glucose (UA) (Negative) Urine Ketones (Negative) Urine Blood (Negative) Urine Nitrite (Negative) Urine Bilirubin (Negative) Urine Urobilinogen (Negative) Ur Leukocyte Esterase (Negative) Urine WBC (Auto) Urine RBC (Auto) U Hyaline Cast (Auto) U Epithel Cells (Auto) Urine Bacteria (Auto) Ur Renal Epithelial Cell Urine Crystals Calcium Oxalate Crystal Uric Acid Crystals Triple Phos Crystals Other Crystals Amorphous Sediment Granular Casts Waxy Casts RBC Casts WBC Casts Pathogenic Casts Other Casts Urine Mucus Urine Other Urine Trichomonas Urine Yeast Urine Sperm Ur Oval Fat Bodies Ur Culture Indicated? Nasal Screen MRSA (PCR) (Negative) Random Vancomycin (10-20) mcg/ml Adenovirus (PCR) (NotDetected) B. pertussis DNA (PCR) (NotDetected) B.parapertussis DNA PCR (NotDetected) C. pneumoniae DNA (PCR) (NotDetected) Coronavirus OC43 (PCR) (NotDetected) Coronavirus HKU1 (PCR) (NotDetected) Coronavirus 229E (PCR) (NotDetected) SARS-CoV-2 (PCR) (NotDetected) Coronavirus NL63 (PCR) (NotDetected) Human Metapneumovir PCR (NotDetected) Influenza Type A (PCR) (NotDetected) Influenza Type B (PCR) (NotDetected) M. pneumoniae (PCR) (NotDetected) Parainfluenza 1 (PCR) (NotDetected) Parainfluenza 2 (PCR) (NotDetected) Parainfluenza 3 (PCR) (NotDetected) Parainfluenza 4 (PCR) (NotDetected) RSV (RT-PCR) (Neg) RSV (PCR) (NotDetected) Entero/Rhino (PCR) (NotDetected) Blood Type Blood Type Recheck B Positive Antibody Screen Crossmatch 08/31/23 08/31/23 08/31/23 Range/Units 04:27 06:21 06:29 WBC 14.19 H (4.8-10.8) K/ul RBC 3.72 L (4.70-6.10) M/uL Hgb 11.6 L (14.0-18.0) g/dl POC Hgb (14.0-18.0) g/dl Hct 35.9 L (42.0-52.0) % POC Hct (42-52) % MCV 96.5 (80.0-100.0) fL MCH 31.2 (25.0-34.0) pg MCHC 32.3 (32.0-36.0) g/dL RDW Std Deviation 48.5 H (36.4-46.3) fL RDW Coeff of Jesse 13.7 (11.5-14.5) % Plt Count 397 D (130-400) K/uL MPV 9.3 L (9.4-12.4) fL Immature Gran % (Auto) % Neut % (Auto) % Lymph % (Auto) % Payne % (Auto) % Eos % (Auto) % Baso % (Auto) % Neut # (Auto) (1.40-6.50) K/uL Lymph # (Auto) (1.20-3.40) K/uL Payne # (Auto) (0.11-0.59) K/uL Eos # (Auto) (0.00-0.50) K/uL Baso # (Auto) (0.00-0.20) K/uL Immature Gran # (Auto) (0.01-0.20) K/uL Platelet Estimate (Normal) RBC Morphology Echinocytes PT (9.0-12.0) Seconds INR (0.9-1.1) APTT (21-31) Seconds PTT Ratio D-Dimer 1650 H* (0-500) ug/L FEU Sample Site POC pH (7.35-7.45) POC pCO2 (35-46) mmHg POC pO2 (80-95) mmHg POC HCO3 (19-24) lachelle/L POC Total CO2 (24-31) mmol/L POC Base Excess (-9-1.8) lachelle/L ABG pH (7.35-7.45) ABG pH (Temp Correct) (7.35-7.45) ABG pCO2 (35-46) mmHg ABG pCO2 (Temp Corrct (35-46) mmHg ABG pO2 (80-95) mmHg POC ABG pO2 at Pt Temp ABG HCO3 (19-24) mmol/L POC ABG O2 Sat (90-95) % ABG O2 Saturation (90-95) % ABG Base Excess (-9-1.8) mEq/L Mikey Test (Pos) VBG pH (7.36-7.41) VBG pCO2 (38-50) mmHg VBG pO2 mmHg VBG HCO3 mmol/L VBG O2 Saturation % VBG Base Excess mEq/L Oxygen Given O2 Delivery Device POC O2 Rate POC FiO2 % Tidal Volume PEEP POC Sodium (135-144) mmol/L Sodium 142 (136-145) mmol/L POC Potassium (3.3-5.0) mmol/L Potassium 4.4 (3.5-5.1) mmol/L POC Chloride (101-112) mmol/L Chloride 111 H (98-107) mmol/L Carbon Dioxide 22 (21-32) mmol/L Anion Gap 9 (3-11) POC Anion Gap (16-25) mmol/L POC BUN (7-18) mg/dl BUN 35 H (6-23) mg/dl Creatinine 2.18 H (0.6-1.4) mg/dl POC Creatinine (0.6-1.3) mg/dl Est Cr Clr Drug Dosing 28.0 Est GFR ( Amer) 33.8 ml/min Est GFR (Non-Af Amer) 29.2 ml/min BUN/Creatinine Ratio 16.1 (10-20) Glucose 76 (70-99(Fasting)) mg/dl POC Glucose (70-99) mg/dl POC Glucose (other) (70-99) mg/dl Lactate 2.6 H* 2.7 H* (0.4-2.0) mmol/L Calcium 9.3 (8.6-10.3) mg/dl POC Ioniz Calcium José Antonio (1.12-1.32) mmol/l Phosphorus (2.5-4.9) mg/dl Magnesium (1.7-2.4) mg/dl Iron (35-175) mcg/dl TIBC (250-450) mcg/dl Unsaturated IBC (155-355) mcg/dl Transferrin % Sat (20-50) % Ferritin (8-388) ng/ml Total Bilirubin (0.2-1.0) mg/dl Direct Bilirubin (0-0.2) mg/dl AST (13-39) U/L ALT (7-52) U/L Alkaline Phosphatase (34-104) U/L Ammonia (18-72) umol/L Troponin I High Sens (0-20) pg/ml B-Natriuretic Peptide (0-100) pg/ml Total Protein (6.0-8.3) gm/dl Albumin (3.4-5.0) gm/dl Globulin (2.5-4.0) gm/dl Albumin/Globulin Ratio (0.9-2) Triglycerides (0-150) mg/dl Vitamin B1 (8-30) nmol/L Vitamin B12 (180-914) pg/ml 25-OH Vitamin D Total (30-100) ng/ml Folate (>5.38) ng/ml Procalcitonin 0.62 H (0-0.5) ng/ml TSH (0.300-4.500) uIu/ml Free T4 (0.61-1.60) ng/dl Urine Color Urine Appearance (Clear) Urine pH (4.5-7.5) Ur Specific Grant (1.000-1.030) Urine Protein (Negative) Urine Glucose (UA) (Negative) Urine Ketones (Negative) Urine Blood (Negative) Urine Nitrite (Negative) Urine Bilirubin (Negative) Urine Urobilinogen (Negative) Ur Leukocyte Esterase (Negative) Urine WBC (Auto) Urine RBC (Auto) U Hyaline Cast (Auto) U Epithel Cells (Auto) Urine Bacteria (Auto) Ur Renal Epithelial Cell Urine Crystals Calcium Oxalate Crystal Uric Acid Crystals Triple Phos Crystals Other Crystals Amorphous Sediment Granular Casts Waxy Casts RBC Casts WBC Casts Pathogenic Casts Other Casts Urine Mucus Urine Other Urine Trichomonas Urine Yeast Urine Sperm Ur Oval Fat Bodies Ur Culture Indicated? Nasal Screen MRSA (PCR) (Negative) Random Vancomycin (10-20) mcg/ml Adenovirus (PCR) (NotDetected) B. pertussis DNA (PCR) (NotDetected) B.parapertussis DNA PCR (NotDetected) C. pneumoniae DNA (PCR) (NotDetected) Coronavirus OC43 (PCR) (NotDetected) Coronavirus HKU1 (PCR) (NotDetected) Coronavirus 229E (PCR) (NotDetected) SARS-CoV-2 (PCR) (NotDetected) Coronavirus NL63 (PCR) (NotDetected) Human Metapneumovir PCR (NotDetected) Influenza Type A (PCR) (NotDetected) Influenza Type B (PCR) (NotDetected) M. pneumoniae (PCR) (NotDetected) Parainfluenza 1 (PCR) (NotDetected) Parainfluenza 2 (PCR) (NotDetected) Parainfluenza 3 (PCR) (NotDetected) Parainfluenza 4 (PCR) (NotDetected) RSV (RT-PCR) (Neg) RSV (PCR) (NotDetected) Entero/Rhino (PCR) (NotDetected) Blood Type B Positive Blood Type Recheck Antibody Screen NEGATIVE Crossmatch See Detail 08/31/23 08/31/23 08/31/23 Range/Units 07:54 10:30 17:13 WBC (4.8-10.8) K/ul RBC (4.70-6.10) M/uL Hgb (14.0-18.0) g/dl POC Hgb (14.0-18.0) g/dl Hct (42.0-52.0) % POC Hct (42-52) % MCV (80.0-100.0) fL MCH (25.0-34.0) pg MCHC (32.0-36.0) g/dL RDW Std Deviation (36.4-46.3) fL RDW Coeff of Jesse (11.5-14.5) % Plt Count (130-400) K/uL MPV (9.4-12.4) fL Immature Gran % (Auto) % Neut % (Auto) % Lymph % (Auto) % Payne % (Auto) % Eos % (Auto) % Baso % (Auto) % Neut # (Auto) (1.40-6.50) K/uL Lymph # (Auto) (1.20-3.40) K/uL Payne # (Auto) (0.11-0.59) K/uL Eos # (Auto) (0.00-0.50) K/uL Baso # (Auto) (0.00-0.20) K/uL Immature Gran # (Auto) (0.01-0.20) K/uL Platelet Estimate (Normal) RBC Morphology Echinocytes PT (9.0-12.0) Seconds INR (0.9-1.1) APTT (21-31) Seconds PTT Ratio D-Dimer (0-500) ug/L FEU Sample Site POC pH (7.35-7.45) POC pCO2 (35-46) mmHg POC pO2 (80-95) mmHg POC HCO3 (19-24) lachelle/L POC Total CO2 (24-31) mmol/L POC Base Excess (-9-1.8) lachelle/L ABG pH (7.35-7.45) ABG pH (Temp Correct) (7.35-7.45) ABG pCO2 (35-46) mmHg ABG pCO2 (Temp Corrct (35-46) mmHg ABG pO2 (80-95) mmHg POC ABG pO2 at Pt Temp ABG HCO3 (19-24) mmol/L POC ABG O2 Sat (90-95) % ABG O2 Saturation (90-95) % ABG Base Excess (-9-1.8) mEq/L Mikey Test (Pos) VBG pH (7.36-7.41) VBG pCO2 (38-50) mmHg VBG pO2 mmHg VBG HCO3 mmol/L VBG O2 Saturation % VBG Base Excess mEq/L Oxygen Given O2 Delivery Device POC O2 Rate POC FiO2 % Tidal Volume PEEP POC Sodium (135-144) mmol/L Sodium (136-145) mmol/L POC Potassium (3.3-5.0) mmol/L Potassium (3.5-5.1) mmol/L POC Chloride (101-112) mmol/L Chloride (98-107) mmol/L Carbon Dioxide (21-32) mmol/L Anion Gap (3-11) POC Anion Gap (16-25) mmol/L POC BUN (7-18) mg/dl BUN (6-23) mg/dl Creatinine (0.6-1.4) mg/dl POC Creatinine (0.6-1.3) mg/dl Est Cr Clr Drug Dosing Est GFR ( Amer) ml/min Est GFR (Non-Af Amer) ml/min BUN/Creatinine Ratio (10-20) Glucose (70-99(Fasting)) mg/dl POC Glucose 90 82 126 H (70-99) mg/dl POC Glucose (other) (70-99) mg/dl Lactate (0.4-2.0) mmol/L Calcium (8.6-10.3) mg/dl POC Ioniz Calcium José Antonio (1.12-1.32) mmol/l Phosphorus (2.5-4.9) mg/dl Magnesium (1.7-2.4) mg/dl Iron (35-175) mcg/dl TIBC (250-450) mcg/dl Unsaturated IBC (155-355) mcg/dl Transferrin % Sat (20-50) % Ferritin (8-388) ng/ml Total Bilirubin (0.2-1.0) mg/dl Direct Bilirubin (0-0.2) mg/dl AST (13-39) U/L ALT (7-52) U/L Alkaline Phosphatase (34-104) U/L Ammonia (18-72) umol/L Troponin I High Sens (0-20) pg/ml B-Natriuretic Peptide (0-100) pg/ml Total Protein (6.0-8.3) gm/dl Albumin (3.4-5.0) gm/dl Globulin (2.5-4.0) gm/dl Albumin/Globulin Ratio (0.9-2) Triglycerides (0-150) mg/dl Vitamin B1 (8-30) nmol/L Vitamin B12 (180-914) pg/ml 25-OH Vitamin D Total (30-100) ng/ml Folate (>5.38) ng/ml Procalcitonin (0-0.5) ng/ml TSH (0.300-4.500) uIu/ml Free T4 (0.61-1.60) ng/dl Urine Color Urine Appearance (Clear) Urine pH (4.5-7.5) Ur Specific Grant (1.000-1.030) Urine Protein (Negative) Urine Glucose (UA) (Negative) Urine Ketones (Negative) Urine Blood (Negative) Urine Nitrite (Negative) Urine Bilirubin (Negative) Urine Urobilinogen (Negative) Ur Leukocyte Esterase (Negative) Urine WBC (Auto) Urine RBC (Auto) U Hyaline Cast (Auto) U Epithel Cells (Auto) Urine Bacteria (Auto) Ur Renal Epithelial Cell Urine Crystals Calcium Oxalate Crystal Uric Acid Crystals Triple Phos Crystals Other Crystals Amorphous Sediment Granular Casts Waxy Casts RBC Casts WBC Casts Pathogenic Casts Other Casts Urine Mucus Urine Other Urine Trichomonas Urine Yeast Urine Sperm Ur Oval Fat Bodies Ur Culture Indicated? Nasal Screen MRSA (PCR) (Negative) Random Vancomycin (10-20) mcg/ml Adenovirus (PCR) (NotDetected) B. pertussis DNA (PCR) (NotDetected) B.parapertussis DNA PCR (NotDetected) C. pneumoniae DNA (PCR) (NotDetected) Coronavirus OC43 (PCR) (NotDetected) Coronavirus HKU1 (PCR) (NotDetected) Coronavirus 229E (PCR) (NotDetected) SARS-CoV-2 (PCR) (NotDetected) Coronavirus NL63 (PCR) (NotDetected) Human Metapneumovir PCR (NotDetected) Influenza Type A (PCR) (NotDetected) Influenza Type B (PCR) (NotDetected) M. pneumoniae (PCR) (NotDetected) Parainfluenza 1 (PCR) (NotDetected) Parainfluenza 2 (PCR) (NotDetected) Parainfluenza 3 (PCR) (NotDetected) Parainfluenza 4 (PCR) (NotDetected) RSV (RT-PCR) (Neg) RSV (PCR) (NotDetected) Entero/Rhino (PCR) (NotDetected) Blood Type Blood Type Recheck Antibody Screen Crossmatch 09/01/23 09/01/23 09/01/23 Range/Units 03:51 04:23 08:19 WBC 14.36 H (4.8-10.8) K/ul RBC 2.96 L (4.70-6.10) M/uL Hgb 9.2 L (14.0-18.0) g/dl POC Hgb 8.5 L (14.0-18.0) g/dl Hct 28.7 L (42.0-52.0) % POC Hct 25 L (42-52) % MCV 97.0 (80.0-100.0) fL MCH 31.1 (25.0-34.0) pg MCHC 32.1 (32.0-36.0) g/dL RDW Std Deviation 49.2 H (36.4-46.3) fL RDW Coeff of Jesse 14.2 (11.5-14.5) % Plt Count 190 D (130-400) K/uL MPV 9.5 (9.4-12.4) fL Immature Gran % (Auto) 0.6 % Neut % (Auto) 94.1 % Lymph % (Auto) 2.2 % Payne % (Auto) 2.9 % Eos % (Auto) 0.0 % Baso % (Auto) 0.2 % Neut # (Auto) 13.51 H (1.40-6.50) K/uL Lymph # (Auto) 0.32 L (1.20-3.40) K/uL Payne # (Auto) 0.41 (0.11-0.59) K/uL Eos # (Auto) 0.00 (0.00-0.50) K/uL Baso # (Auto) 0.03 (0.00-0.20) K/uL Immature Gran # (Auto) 0.09 (0.01-0.20) K/uL Platelet Estimate Normal (Normal) RBC Morphology Echinocytes PT (9.0-12.0) Seconds INR (0.9-1.1) APTT (21-31) Seconds PTT Ratio D-Dimer (0-500) ug/L FEU Sample Site Art Line POC pH 7.43 (7.35-7.45) POC pCO2 26 L (35-46) mmHg POC pO2 78 L (80-95) mmHg POC HCO3 18 L (19-24) lachelle/L POC Total CO2 18 L (24-31) mmol/L POC Base Excess -7.0 (-9-1.8) lachelle/L ABG pH (7.35-7.45) ABG pH (Temp Correct) 7.417 (7.35-7.45) ABG pCO2 (35-46) mmHg ABG pCO2 (Temp Corrct 28 L (35-46) mmHg ABG pO2 (80-95) mmHg POC ABG pO2 at Pt Temp 84 ABG HCO3 (19-24) mmol/L POC ABG O2 Sat 96.0 H (90-95) % ABG O2 Saturation (90-95) % ABG Base Excess (-9-1.8) mEq/L Mikey Test NA (Pos) VBG pH (7.36-7.41) VBG pCO2 (38-50) mmHg VBG pO2 mmHg VBG HCO3 mmol/L VBG O2 Saturation % VBG Base Excess mEq/L Oxygen Given O2 Delivery Device Ventilator POC O2 Rate 18 POC FiO2 35 % Tidal Volume 400 PEEP 5 POC Sodium 138 (135-144) mmol/L Sodium 137 (136-145) mmol/L POC Potassium 4.4 (3.3-5.0) mmol/L Potassium 4.3 (3.5-5.1) mmol/L POC Chloride (101-112) mmol/L Chloride 109 H (98-107) mmol/L Carbon Dioxide 19 L (21-32) mmol/L Anion Gap 9 (3-11) POC Anion Gap (16-25) mmol/L POC BUN (7-18) mg/dl BUN 36 H (6-23) mg/dl Creatinine 2.24 H (0.6-1.4) mg/dl POC Creatinine (0.6-1.3) mg/dl Est Cr Clr Drug Dosing 27.0 Est GFR ( Amer) 32.7 ml/min Est GFR (Non-Af Amer) 28.2 ml/min BUN/Creatinine Ratio 16.1 (10-20) Glucose 121 H (70-99(Fasting)) mg/dl POC Glucose 140 H (70-99) mg/dl POC Glucose (other) (70-99) mg/dl Lactate (0.4-2.0) mmol/L Calcium 7.6 L (8.6-10.3) mg/dl POC Ioniz Calcium José Antonio (1.12-1.32) mmol/l Phosphorus (2.5-4.9) mg/dl Magnesium (1.7-2.4) mg/dl Iron (35-175) mcg/dl TIBC (250-450) mcg/dl Unsaturated IBC (155-355) mcg/dl Transferrin % Sat (20-50) % Ferritin (8-388) ng/ml Total Bilirubin 0.4 (0.2-1.0) mg/dl Direct Bilirubin (0-0.2) mg/dl AST 15 (13-39) U/L ALT 22 (7-52) U/L Alkaline Phosphatase 107 H (34-104) U/L Ammonia (18-72) umol/L Troponin I High Sens (0-20) pg/ml B-Natriuretic Peptide (0-100) pg/ml Total Protein 4.5 L (6.0-8.3) gm/dl Albumin 2.5 L (3.4-5.0) gm/dl Globulin 2.0 L (2.5-4.0) gm/dl Albumin/Globulin Ratio 1.3 (0.9-2) Triglycerides (0-150) mg/dl Vitamin B1 (8-30) nmol/L Vitamin B12 (180-914) pg/ml 25-OH Vitamin D Total (30-100) ng/ml Folate (>5.38) ng/ml Procalcitonin (0-0.5) ng/ml TSH (0.300-4.500) uIu/ml Free T4 (0.61-1.60) ng/dl Urine Color Urine Appearance (Clear) Urine pH (4.5-7.5) Ur Specific Grant (1.000-1.030) Urine Protein (Negative) Urine Glucose (UA) (Negative) Urine Ketones (Negative) Urine Blood (Negative) Urine Nitrite (Negative) Urine Bilirubin (Negative) Urine Urobilinogen (Negative) Ur Leukocyte Esterase (Negative) Urine WBC (Auto) Urine RBC (Auto) U Hyaline Cast (Auto) U Epithel Cells (Auto) Urine Bacteria (Auto) Ur Renal Epithelial Cell Urine Crystals Calcium Oxalate Crystal Uric Acid Crystals Triple Phos Crystals Other Crystals Amorphous Sediment Granular Casts Waxy Casts RBC Casts WBC Casts Pathogenic Casts Other Casts Urine Mucus Urine Other Urine Trichomonas Urine Yeast Urine Sperm Ur Oval Fat Bodies Ur Culture Indicated? Nasal Screen MRSA (PCR) (Negative) Random Vancomycin 10.5 (10-20) mcg/ml Adenovirus (PCR) (NotDetected) B. pertussis DNA (PCR) (NotDetected) B.parapertussis DNA PCR (NotDetected) C. pneumoniae DNA (PCR) (NotDetected) Coronavirus OC43 (PCR) (NotDetected) Coronavirus HKU1 (PCR) (NotDetected) Coronavirus 229E (PCR) (NotDetected) SARS-CoV-2 (PCR) (NotDetected) Coronavirus NL63 (PCR) (NotDetected) Human Metapneumovir PCR (NotDetected) Influenza Type A (PCR) (NotDetected) Influenza Type B (PCR) (NotDetected) M. pneumoniae (PCR) (NotDetected) Parainfluenza 1 (PCR) (NotDetected) Parainfluenza 2 (PCR) (NotDetected) Parainfluenza 3 (PCR) (NotDetected) Parainfluenza 4 (PCR) (NotDetected) RSV (RT-PCR) (Neg) RSV (PCR) (NotDetected) Entero/Rhino (PCR) (NotDetected) Blood Type Blood Type Recheck Antibody Screen Crossmatch 09/01/23 09/01/23 09/01/23 Range/Units 11:31 12:11 16:25 WBC (4.8-10.8) K/ul RBC (4.70-6.10) M/uL Hgb 9.4 L (14.0-18.0) g/dl POC Hgb (14.0-18.0) g/dl Hct 28.4 L (42.0-52.0) % POC Hct (42-52) % MCV (80.0-100.0) fL MCH (25.0-34.0) pg MCHC (32.0-36.0) g/dL RDW Std Deviation (36.4-46.3) fL RDW Coeff of Jesse (11.5-14.5) % Plt Count (130-400) K/uL MPV (9.4-12.4) fL Immature Gran % (Auto) % Neut % (Auto) % Lymph % (Auto) % Payne % (Auto) % Eos % (Auto) % Baso % (Auto) % Neut # (Auto) (1.40-6.50) K/uL Lymph # (Auto) (1.20-3.40) K/uL Payne # (Auto) (0.11-0.59) K/uL Eos # (Auto) (0.00-0.50) K/uL Baso # (Auto) (0.00-0.20) K/uL Immature Gran # (Auto) (0.01-0.20) K/uL Platelet Estimate (Normal) RBC Morphology Echinocytes PT (9.0-12.0) Seconds INR (0.9-1.1) APTT (21-31) Seconds PTT Ratio D-Dimer (0-500) ug/L FEU Sample Site POC pH (7.35-7.45) POC pCO2 (35-46) mmHg POC pO2 (80-95) mmHg POC HCO3 (19-24) lachelle/L POC Total CO2 (24-31) mmol/L POC Base Excess (-9-1.8) lachelle/L ABG pH (7.35-7.45) ABG pH (Temp Correct) (7.35-7.45) ABG pCO2 (35-46) mmHg ABG pCO2 (Temp Corrct (35-46) mmHg ABG pO2 (80-95) mmHg POC ABG pO2 at Pt Temp ABG HCO3 (19-24) mmol/L POC ABG O2 Sat (90-95) % ABG O2 Saturation (90-95) % ABG Base Excess (-9-1.8) mEq/L Mikey Test (Pos) VBG pH (7.36-7.41) VBG pCO2 (38-50) mmHg VBG pO2 mmHg VBG HCO3 mmol/L VBG O2 Saturation % VBG Base Excess mEq/L Oxygen Given O2 Delivery Device POC O2 Rate POC FiO2 % Tidal Volume PEEP POC Sodium (135-144) mmol/L Sodium (136-145) mmol/L POC Potassium (3.3-5.0) mmol/L Potassium (3.5-5.1) mmol/L POC Chloride (101-112) mmol/L Chloride (98-107) mmol/L Carbon Dioxide (21-32) mmol/L Anion Gap (3-11) POC Anion Gap (16-25) mmol/L POC BUN (7-18) mg/dl BUN (6-23) mg/dl Creatinine (0.6-1.4) mg/dl POC Creatinine (0.6-1.3) mg/dl Est Cr Clr Drug Dosing Est GFR ( Amer) ml/min Est GFR (Non-Af Amer) ml/min BUN/Creatinine Ratio (10-20) Glucose (70-99(Fasting)) mg/dl POC Glucose 133 H 103 H (70-99) mg/dl POC Glucose (other) (70-99) mg/dl Lactate (0.4-2.0) mmol/L Calcium (8.6-10.3) mg/dl POC Ioniz Calcium José Antonio (1.12-1.32) mmol/l Phosphorus (2.5-4.9) mg/dl Magnesium (1.7-2.4) mg/dl Iron (35-175) mcg/dl TIBC (250-450) mcg/dl Unsaturated IBC (155-355) mcg/dl Transferrin % Sat (20-50) % Ferritin (8-388) ng/ml Total Bilirubin (0.2-1.0) mg/dl Direct Bilirubin (0-0.2) mg/dl AST (13-39) U/L ALT (7-52) U/L Alkaline Phosphatase (34-104) U/L Ammonia (18-72) umol/L Troponin I High Sens (0-20) pg/ml B-Natriuretic Peptide (0-100) pg/ml Total Protein (6.0-8.3) gm/dl Albumin (3.4-5.0) gm/dl Globulin (2.5-4.0) gm/dl Albumin/Globulin Ratio (0.9-2) Triglycerides (0-150) mg/dl Vitamin B1 (8-30) nmol/L Vitamin B12 (180-914) pg/ml 25-OH Vitamin D Total (30-100) ng/ml Folate (>5.38) ng/ml Procalcitonin (0-0.5) ng/ml TSH (0.300-4.500) uIu/ml Free T4 (0.61-1.60) ng/dl Urine Color Urine Appearance (Clear) Urine pH (4.5-7.5) Ur Specific Grant (1.000-1.030) Urine Protein (Negative) Urine Glucose (UA) (Negative) Urine Ketones (Negative) Urine Blood (Negative) Urine Nitrite (Negative) Urine Bilirubin (Negative) Urine Urobilinogen (Negative) Ur Leukocyte Esterase (Negative) Urine WBC (Auto) Urine RBC (Auto) U Hyaline Cast (Auto) U Epithel Cells (Auto) Urine Bacteria (Auto) Ur Renal Epithelial Cell Urine Crystals Calcium Oxalate Crystal Uric Acid Crystals Triple Phos Crystals Other Crystals Amorphous Sediment Granular Casts Waxy Casts RBC Casts WBC Casts Pathogenic Casts Other Casts Urine Mucus Urine Other Urine Trichomonas Urine Yeast Urine Sperm Ur Oval Fat Bodies Ur Culture Indicated? Nasal Screen MRSA (PCR) (Negative) Random Vancomycin (10-20) mcg/ml Adenovirus (PCR) (NotDetected) B. pertussis DNA (PCR) (NotDetected) B.parapertussis DNA PCR (NotDetected) C. pneumoniae DNA (PCR) (NotDetected) Coronavirus OC43 (PCR) (NotDetected) Coronavirus HKU1 (PCR) (NotDetected) Coronavirus 229E (PCR) (NotDetected) SARS-CoV-2 (PCR) (NotDetected) Coronavirus NL63 (PCR) (NotDetected) Human Metapneumovir PCR (NotDetected) Influenza Type A (PCR) (NotDetected) Influenza Type B (PCR) (NotDetected) M. pneumoniae (PCR) (NotDetected) Parainfluenza 1 (PCR) (NotDetected) Parainfluenza 2 (PCR) (NotDetected) Parainfluenza 3 (PCR) (NotDetected) Parainfluenza 4 (PCR) (NotDetected) RSV (RT-PCR) (Neg) RSV (PCR) (NotDetected) Entero/Rhino (PCR) (NotDetected) Blood Type Blood Type Recheck Antibody Screen Crossmatch 09/02/23 09/03/23 09/04/23 Range/Units 04:55 10:31 08:07 WBC 20.22 H (4.8-10.8) K/ul RBC 3.05 L (4.70-6.10) M/uL Hgb 9.5 L (14.0-18.0) g/dl POC Hgb (14.0-18.0) g/dl Hct 29.1 L (42.0-52.0) % POC Hct (42-52) % MCV 95.4 (80.0-100.0) fL MCH 31.1 (25.0-34.0) pg MCHC 32.6 (32.0-36.0) g/dL RDW Std Deviation 49.0 H (36.4-46.3) fL RDW Coeff of Jesse 14.1 (11.5-14.5) % Plt Count 194 (130-400) K/uL MPV 9.5 (9.4-12.4) fL Immature Gran % (Auto) 3.3 % Neut % (Auto) 91.6 % Lymph % (Auto) 1.7 % Payne % (Auto) 3.3 % Eos % (Auto) 0.0 % Baso % (Auto) 0.1 % Neut # (Auto) 18.50 H (1.40-6.50) K/uL Lymph # (Auto) 0.35 L (1.20-3.40) K/uL Payne # (Auto) 0.67 H (0.11-0.59) K/uL Eos # (Auto) 0.01 (0.00-0.50) K/uL Baso # (Auto) 0.02 (0.00-0.20) K/uL Immature Gran # (Auto) 0.67 H (0.01-0.20) K/uL Platelet Estimate (Normal) RBC Morphology Echinocytes 1+ PT (9.0-12.0) Seconds INR (0.9-1.1) APTT (21-31) Seconds PTT Ratio D-Dimer (0-500) ug/L FEU Sample Site POC pH (7.35-7.45) POC pCO2 (35-46) mmHg POC pO2 (80-95) mmHg POC HCO3 (19-24) lachelle/L POC Total CO2 (24-31) mmol/L POC Base Excess (-9-1.8) lachelle/L ABG pH (7.35-7.45) ABG pH (Temp Correct) (7.35-7.45) ABG pCO2 (35-46) mmHg ABG pCO2 (Temp Corrct (35-46) mmHg ABG pO2 (80-95) mmHg POC ABG pO2 at Pt Temp ABG HCO3 (19-24) mmol/L POC ABG O2 Sat (90-95) % ABG O2 Saturation (90-95) % ABG Base Excess (-9-1.8) mEq/L Mikey Test (Pos) VBG pH 7.30 L (7.36-7.41) VBG pCO2 42 (38-50) mmHg VBG pO2 25 mmHg VBG HCO3 21 mmol/L VBG O2 Saturation < 60.0 % VBG Base Excess -5.5 mEq/L Oxygen Given O2 Delivery Device POC O2 Rate POC FiO2 % Tidal Volume PEEP POC Sodium (135-144) mmol/L Sodium 137 137 143 (136-145) mmol/L POC Potassium (3.3-5.0) mmol/L Potassium 4.7 5.0 4.9 (3.5-5.1) mmol/L POC Chloride (101-112) mmol/L Chloride 110 H 111 H 113 H (98-107) mmol/L Carbon Dioxide 18 L 20 L 23 (21-32) mmol/L Anion Gap 9 6 7 (3-11) POC Anion Gap (16-25) mmol/L POC BUN (7-18) mg/dl BUN 35 H 26 H 26 H (6-23) mg/dl Creatinine 1.93 H D 1.36 D 1.27 (0.6-1.4) mg/dl POC Creatinine (0.6-1.3) mg/dl Est Cr Clr Drug Dosing 32.3 45.9 49.2 Est GFR ( Amer) 39.2 59.8 65.0 ml/min Est GFR (Non-Af Amer) 33.8 51.6 56.1 ml/min BUN/Creatinine Ratio 18.1 19.1 20.5 H (10-20) Glucose 132 H 71 65 L (70-99(Fasting)) mg/dl POC Glucose (70-99) mg/dl POC Glucose (other) (70-99) mg/dl Lactate (0.4-2.0) mmol/L Calcium 7.9 L 8.5 L 8.5 L (8.6-10.3) mg/dl POC Ioniz Calcium José Antonio (1.12-1.32) mmol/l Phosphorus 3.9 3.2 4.5 D (2.5-4.9) mg/dl Magnesium 1.4 L 1.9 1.8 (1.7-2.4) mg/dl Iron (35-175) mcg/dl TIBC (250-450) mcg/dl Unsaturated IBC (155-355) mcg/dl Transferrin % Sat (20-50) % Ferritin (8-388) ng/ml Total Bilirubin (0.2-1.0) mg/dl Direct Bilirubin (0-0.2) mg/dl AST (13-39) U/L ALT (7-52) U/L Alkaline Phosphatase (34-104) U/L Ammonia (18-72) umol/L Troponin I High Sens (0-20) pg/ml B-Natriuretic Peptide (0-100) pg/ml Total Protein (6.0-8.3) gm/dl Albumin (3.4-5.0) gm/dl Globulin (2.5-4.0) gm/dl Albumin/Globulin Ratio (0.9-2) Triglycerides (0-150) mg/dl Vitamin B1 (8-30) nmol/L Vitamin B12 (180-914) pg/ml 25-OH Vitamin D Total (30-100) ng/ml Folate (>5.38) ng/ml Procalcitonin (0-0.5) ng/ml TSH (0.300-4.500) uIu/ml Free T4 (0.61-1.60) ng/dl Urine Color Urine Appearance (Clear) Urine pH (4.5-7.5) Ur Specific Grant (1.000-1.030) Urine Protein (Negative) Urine Glucose (UA) (Negative) Urine Ketones (Negative) Urine Blood (Negative) Urine Nitrite (Negative) Urine Bilirubin (Negative) Urine Urobilinogen (Negative) Ur Leukocyte Esterase (Negative) Urine WBC (Auto) Urine RBC (Auto) U Hyaline Cast (Auto) U Epithel Cells (Auto) Urine Bacteria (Auto) Ur Renal Epithelial Cell Urine Crystals Calcium Oxalate Crystal Uric Acid Crystals Triple Phos Crystals Other Crystals Amorphous Sediment Granular Casts Waxy Casts RBC Casts WBC Casts Pathogenic Casts Other Casts Urine Mucus Urine Other Urine Trichomonas Urine Yeast Urine Sperm Ur Oval Fat Bodies Ur Culture Indicated? Nasal Screen MRSA (PCR) (Negative) Random Vancomycin (10-20) mcg/ml Adenovirus (PCR) (NotDetected) B. pertussis DNA (PCR) (NotDetected) B.parapertussis DNA PCR (NotDetected) C. pneumoniae DNA (PCR) (NotDetected) Coronavirus OC43 (PCR) (NotDetected) Coronavirus HKU1 (PCR) (NotDetected) Coronavirus 229E (PCR) (NotDetected) SARS-CoV-2 (PCR) (NotDetected) Coronavirus NL63 (PCR) (NotDetected) Human Metapneumovir PCR (NotDetected) Influenza Type A (PCR) (NotDetected) Influenza Type B (PCR) (NotDetected) M. pneumoniae (PCR) (NotDetected) Parainfluenza 1 (PCR) (NotDetected) Parainfluenza 2 (PCR) (NotDetected) Parainfluenza 3 (PCR) (NotDetected) Parainfluenza 4 (PCR) (NotDetected) RSV (RT-PCR) (Neg) RSV (PCR) (NotDetected) Entero/Rhino (PCR) (NotDetected) Blood Type Blood Type Recheck Antibody Screen Crossmatch 09/05/23 09/05/23 09/06/23 Range/Units 03:20 06:29 05:44 WBC 12.11 H (4.8-10.8) K/ul RBC 2.91 L (4.70-6.10) M/uL Hgb 9.1 L (14.0-18.0) g/dl POC Hgb (14.0-18.0) g/dl Hct 28.5 L (42.0-52.0) % POC Hct (42-52) % MCV 97.9 (80.0-100.0) fL MCH 31.3 (25.0-34.0) pg MCHC 31.9 L (32.0-36.0) g/dL RDW Std Deviation 48.7 H (36.4-46.3) fL RDW Coeff of Jesse 13.6 (11.5-14.5) % Plt Count 138 (130-400) K/uL MPV 9.0 L (9.4-12.4) fL Immature Gran % (Auto) % Neut % (Auto) % Lymph % (Auto) % Payne % (Auto) % Eos % (Auto) % Baso % (Auto) % Neut # (Auto) (1.40-6.50) K/uL Lymph # (Auto) (1.20-3.40) K/uL Payne # (Auto) (0.11-0.59) K/uL Eos # (Auto) (0.00-0.50) K/uL Baso # (Auto) (0.00-0.20) K/uL Immature Gran # (Auto) (0.01-0.20) K/uL Platelet Estimate (Normal) RBC Morphology Echinocytes PT (9.0-12.0) Seconds INR (0.9-1.1) APTT (21-31) Seconds PTT Ratio D-Dimer (0-500) ug/L FEU Sample Site POC pH (7.35-7.45) POC pCO2 (35-46) mmHg POC pO2 (80-95) mmHg POC HCO3 (19-24) lachelle/L POC Total CO2 (24-31) mmol/L POC Base Excess (-9-1.8) lachelle/L ABG pH 7.24 L 7.29 L (7.35-7.45) ABG pH (Temp Correct) (7.35-7.45) ABG pCO2 53 H 49 H (35-46) mmHg ABG pCO2 (Temp Corrct (35-46) mmHg ABG pO2 139 H 150 H (80-95) mmHg POC ABG pO2 at Pt Temp ABG HCO3 23 24 (19-24) mmol/L POC ABG O2 Sat (90-95) % ABG O2 Saturation 98.9 H 98.7 H (90-95) % ABG Base Excess -5.2 -3.4 (-9-1.8) mEq/L Mikey Test Pos Pos (Pos) VBG pH (7.36-7.41) VBG pCO2 (38-50) mmHg VBG pO2 mmHg VBG HCO3 mmol/L VBG O2 Saturation % VBG Base Excess mEq/L Oxygen Given 5L 5L O2 Delivery Device POC O2 Rate POC FiO2 % Tidal Volume PEEP POC Sodium (135-144) mmol/L Sodium 139 141 (136-145) mmol/L POC Potassium (3.3-5.0) mmol/L Potassium 4.7 4.5 (3.5-5.1) mmol/L POC Chloride (101-112) mmol/L Chloride 110 H 110 H (98-107) mmol/L Carbon Dioxide 24 26 (21-32) mmol/L Anion Gap 5 5 (3-11) POC Anion Gap (16-25) mmol/L POC BUN (7-18) mg/dl BUN 23 20 (6-23) mg/dl Creatinine 1.09 0.85 (0.6-1.4) mg/dl POC Creatinine (0.6-1.3) mg/dl Est Cr Clr Drug Dosing 57.3 73.4 Est GFR ( Amer) 78.2 100.9 ml/min Est GFR (Non-Af Amer) 67.5 87.1 ml/min BUN/Creatinine Ratio 21.1 H 23.5 H (10-20) Glucose 130 H 76 (70-99(Fasting)) mg/dl POC Glucose (70-99) mg/dl POC Glucose (other) (70-99) mg/dl Lactate (0.4-2.0) mmol/L Calcium 8.3 L 7.8 L (8.6-10.3) mg/dl POC Ioniz Calcium José Antonio (1.12-1.32) mmol/l Phosphorus (2.5-4.9) mg/dl Magnesium 1.5 L 1.6 L (1.7-2.4) mg/dl Iron (35-175) mcg/dl TIBC (250-450) mcg/dl Unsaturated IBC (155-355) mcg/dl Transferrin % Sat (20-50) % Ferritin (8-388) ng/ml Total Bilirubin (0.2-1.0) mg/dl Direct Bilirubin (0-0.2) mg/dl AST (13-39) U/L ALT (7-52) U/L Alkaline Phosphatase (34-104) U/L Ammonia (18-72) umol/L Troponin I High Sens (0-20) pg/ml B-Natriuretic Peptide (0-100) pg/ml Total Protein (6.0-8.3) gm/dl Albumin (3.4-5.0) gm/dl Globulin (2.5-4.0) gm/dl Albumin/Globulin Ratio (0.9-2) Triglycerides (0-150) mg/dl Vitamin B1 (8-30) nmol/L Vitamin B12 (180-914) pg/ml 25-OH Vitamin D Total (30-100) ng/ml Folate (>5.38) ng/ml Procalcitonin (0-0.5) ng/ml TSH (0.300-4.500) uIu/ml Free T4 (0.61-1.60) ng/dl Urine Color Urine Appearance (Clear) Urine pH (4.5-7.5) Ur Specific Grant (1.000-1.030) Urine Protein (Negative) Urine Glucose (UA) (Negative) Urine Ketones (Negative) Urine Blood (Negative) Urine Nitrite (Negative) Urine Bilirubin (Negative) Urine Urobilinogen (Negative) Ur Leukocyte Esterase (Negative) Urine WBC (Auto) Urine RBC (Auto) U Hyaline Cast (Auto) U Epithel Cells (Auto) Urine Bacteria (Auto) Ur Renal Epithelial Cell Urine Crystals Calcium Oxalate Crystal Uric Acid Crystals Triple Phos Crystals Other Crystals Amorphous Sediment Granular Casts Waxy Casts RBC Casts WBC Casts Pathogenic Casts Other Casts Urine Mucus Urine Other Urine Trichomonas Urine Yeast Urine Sperm Ur Oval Fat Bodies Ur Culture Indicated? Nasal Screen MRSA (PCR) (Negative) Random Vancomycin (10-20) mcg/ml Adenovirus (PCR) (NotDetected) B. pertussis DNA (PCR) (NotDetected) B.parapertussis DNA PCR (NotDetected) C. pneumoniae DNA (PCR) (NotDetected) Coronavirus OC43 (PCR) (NotDetected) Coronavirus HKU1 (PCR) (NotDetected) Coronavirus 229E (PCR) (NotDetected) SARS-CoV-2 (PCR) (NotDetected) Coronavirus NL63 (PCR) (NotDetected) Human Metapneumovir PCR (NotDetected) Influenza Type A (PCR) (NotDetected) Influenza Type B (PCR) (NotDetected) M. pneumoniae (PCR) (NotDetected) Parainfluenza 1 (PCR) (NotDetected) Parainfluenza 2 (PCR) (NotDetected) Parainfluenza 3 (PCR) (NotDetected) Parainfluenza 4 (PCR) (NotDetected) RSV (RT-PCR) (Neg) RSV (PCR) (NotDetected) Entero/Rhino (PCR) (NotDetected) Blood Type Blood Type Recheck Antibody Screen Crossmatch 09/06/23 09/06/23 09/07/23 Range/Units 08:58 08:58 01:16 WBC 13.30 H (4.8-10.8) K/ul RBC 2.90 L (4.70-6.10) M/uL Hgb 8.9 L (14.0-18.0) g/dl POC Hgb (14.0-18.0) g/dl Hct 28.3 L (42.0-52.0) % POC Hct (42-52) % MCV 97.6 (80.0-100.0) fL MCH 30.7 (25.0-34.0) pg MCHC 31.4 L (32.0-36.0) g/dL RDW Std Deviation 48.6 H (36.4-46.3) fL RDW Coeff of Jesse 13.4 (11.5-14.5) % Plt Count 138 (130-400) K/uL MPV 9.6 (9.4-12.4) fL Immature Gran % (Auto) % Neut % (Auto) % Lymph % (Auto) % Payne % (Auto) % Eos % (Auto) % Baso % (Auto) % Neut # (Auto) (1.40-6.50) K/uL Lymph # (Auto) (1.20-3.40) K/uL Payne # (Auto) (0.11-0.59) K/uL Eos # (Auto) (0.00-0.50) K/uL Baso # (Auto) (0.00-0.20) K/uL Immature Gran # (Auto) (0.01-0.20) K/uL Platelet Estimate (Normal) RBC Morphology Echinocytes PT (9.0-12.0) Seconds INR (0.9-1.1) APTT (21-31) Seconds PTT Ratio D-Dimer (0-500) ug/L FEU Sample Site POC pH (7.35-7.45) POC pCO2 (35-46) mmHg POC pO2 (80-95) mmHg POC HCO3 (19-24) lachelle/L POC Total CO2 (24-31) mmol/L POC Base Excess (-9-1.8) lachelle/L ABG pH (7.35-7.45) ABG pH (Temp Correct) (7.35-7.45) ABG pCO2 (35-46) mmHg ABG pCO2 (Temp Corrct (35-46) mmHg ABG pO2 (80-95) mmHg POC ABG pO2 at Pt Temp ABG HCO3 (19-24) mmol/L POC ABG O2 Sat (90-95) % ABG O2 Saturation (90-95) % ABG Base Excess (-9-1.8) mEq/L Mikey Test (Pos) VBG pH (7.36-7.41) VBG pCO2 (38-50) mmHg VBG pO2 mmHg VBG HCO3 mmol/L VBG O2 Saturation % VBG Base Excess mEq/L Oxygen Given O2 Delivery Device POC O2 Rate POC FiO2 % Tidal Volume PEEP POC Sodium (135-144) mmol/L Sodium 141 (136-145) mmol/L POC Potassium (3.3-5.0) mmol/L Potassium 4.1 (3.5-5.1) mmol/L POC Chloride (101-112) mmol/L Chloride 109 H (98-107) mmol/L Carbon Dioxide 27 (21-32) mmol/L Anion Gap 5 (3-11) POC Anion Gap (16-25) mmol/L POC BUN (7-18) mg/dl BUN 20 (6-23) mg/dl Creatinine 0.88 (0.6-1.4) mg/dl POC Creatinine (0.6-1.3) mg/dl Est Cr Clr Drug Dosing 70.9 Est GFR ( Amer) 99.5 ml/min Est GFR (Non-Af Amer) 85.8 ml/min BUN/Creatinine Ratio 22.7 H (10-20) Glucose 77 (70-99(Fasting)) mg/dl POC Glucose 126 H (70-99) mg/dl POC Glucose (other) (70-99) mg/dl Lactate (0.4-2.0) mmol/L Calcium 7.9 L (8.6-10.3) mg/dl POC Ioniz Calcium José Antonio (1.12-1.32) mmol/l Phosphorus 2.1 L 2.1 L (2.5-4.9) mg/dl Magnesium 1.6 L (1.7-2.4) mg/dl Iron (35-175) mcg/dl TIBC (250-450) mcg/dl Unsaturated IBC (155-355) mcg/dl Transferrin % Sat (20-50) % Ferritin (8-388) ng/ml Total Bilirubin 0.4 (0.2-1.0) mg/dl Direct Bilirubin (0-0.2) mg/dl AST 12 L (13-39) U/L ALT (7-52) U/L Alkaline Phosphatase 167 H (34-104) U/L Ammonia (18-72) umol/L Troponin I High Sens (0-20) pg/ml B-Natriuretic Peptide (0-100) pg/ml Total Protein (6.0-8.3) gm/dl Albumin (3.4-5.0) gm/dl Globulin (2.5-4.0) gm/dl Albumin/Globulin Ratio (0.9-2) Triglycerides 137 (0-150) mg/dl Vitamin B1 (8-30) nmol/L Vitamin B12 (180-914) pg/ml 25-OH Vitamin D Total (30-100) ng/ml Folate (>5.38) ng/ml Procalcitonin (0-0.5) ng/ml TSH (0.300-4.500) uIu/ml Free T4 (0.61-1.60) ng/dl Urine Color Urine Appearance (Clear) Urine pH (4.5-7.5) Ur Specific Grant (1.000-1.030) Urine Protein (Negative) Urine Glucose (UA) (Negative) Urine Ketones (Negative) Urine Blood (Negative) Urine Nitrite (Negative) Urine Bilirubin (Negative) Urine Urobilinogen (Negative) Ur Leukocyte Esterase (Negative) Urine WBC (Auto) Urine RBC (Auto) U Hyaline Cast (Auto) U Epithel Cells (Auto) Urine Bacteria (Auto) Ur Renal Epithelial Cell Urine Crystals Calcium Oxalate Crystal Uric Acid Crystals Triple Phos Crystals Other Crystals Amorphous Sediment Granular Casts Waxy Casts RBC Casts WBC Casts Pathogenic Casts Other Casts Urine Mucus Urine Other Urine Trichomonas Urine Yeast Urine Sperm Ur Oval Fat Bodies Ur Culture Indicated? Nasal Screen MRSA (PCR) (Negative) Random Vancomycin (10-20) mcg/ml Adenovirus (PCR) (NotDetected) B. pertussis DNA (PCR) (NotDetected) B.parapertussis DNA PCR (NotDetected) C. pneumoniae DNA (PCR) (NotDetected) Coronavirus OC43 (PCR) (NotDetected) Coronavirus HKU1 (PCR) (NotDetected) Coronavirus 229E (PCR) (NotDetected) SARS-CoV-2 (PCR) (NotDetected) Coronavirus NL63 (PCR) (NotDetected) Human Metapneumovir PCR (NotDetected) Influenza Type A (PCR) (NotDetected) Influenza Type B (PCR) (NotDetected) M. pneumoniae (PCR) (NotDetected) Parainfluenza 1 (PCR) (NotDetected) Parainfluenza 2 (PCR) (NotDetected) Parainfluenza 3 (PCR) (NotDetected) Parainfluenza 4 (PCR) (NotDetected) RSV (RT-PCR) (Neg) RSV (PCR) (NotDetected) Entero/Rhino (PCR) (NotDetected) Blood Type Blood Type Recheck Antibody Screen Crossmatch 09/07/23 09/07/23 09/07/23 Range/Units 06:03 11:45 15:55 WBC (4.8-10.8) K/ul RBC (4.70-6.10) M/uL Hgb (14.0-18.0) g/dl POC Hgb (14.0-18.0) g/dl Hct (42.0-52.0) % POC Hct (42-52) % MCV (80.0-100.0) fL MCH (25.0-34.0) pg MCHC (32.0-36.0) g/dL RDW Std Deviation (36.4-46.3) fL RDW Coeff of Jesse (11.5-14.5) % Plt Count (130-400) K/uL MPV (9.4-12.4) fL Immature Gran % (Auto) % Neut % (Auto) % Lymph % (Auto) % Payne % (Auto) % Eos % (Auto) % Baso % (Auto) % Neut # (Auto) (1.40-6.50) K/uL Lymph # (Auto) (1.20-3.40) K/uL Payne # (Auto) (0.11-0.59) K/uL Eos # (Auto) (0.00-0.50) K/uL Baso # (Auto) (0.00-0.20) K/uL Immature Gran # (Auto) (0.01-0.20) K/uL Platelet Estimate (Normal) RBC Morphology Echinocytes PT (9.0-12.0) Seconds INR (0.9-1.1) APTT (21-31) Seconds PTT Ratio D-Dimer (0-500) ug/L FEU Sample Site POC pH (7.35-7.45) POC pCO2 (35-46) mmHg POC pO2 (80-95) mmHg POC HCO3 (19-24) lachelle/L POC Total CO2 (24-31) mmol/L POC Base Excess (-9-1.8) lachelle/L ABG pH (7.35-7.45) ABG pH (Temp Correct) (7.35-7.45) ABG pCO2 (35-46) mmHg ABG pCO2 (Temp Corrct (35-46) mmHg ABG pO2 (80-95) mmHg POC ABG pO2 at Pt Temp ABG HCO3 (19-24) mmol/L POC ABG O2 Sat (90-95) % ABG O2 Saturation (90-95) % ABG Base Excess (-9-1.8) mEq/L Mikey Test (Pos) VBG pH 7.23 L (7.36-7.41) VBG pCO2 71 H (38-50) mmHg VBG pO2 30 mmHg VBG HCO3 30 mmol/L VBG O2 Saturation < 60.0 % VBG Base Excess 0.2 mEq/L Oxygen Given O2 Delivery Device POC O2 Rate POC FiO2 % Tidal Volume PEEP POC Sodium (135-144) mmol/L Sodium 139 (136-145) mmol/L POC Potassium (3.3-5.0) mmol/L Potassium 4.0 (3.5-5.1) mmol/L POC Chloride (101-112) mmol/L Chloride 107 (98-107) mmol/L Carbon Dioxide 25 (21-32) mmol/L Anion Gap 7 (3-11) POC Anion Gap (16-25) mmol/L POC BUN (7-18) mg/dl BUN 19 (6-23) mg/dl Creatinine 0.81 (0.6-1.4) mg/dl POC Creatinine (0.6-1.3) mg/dl Est Cr Clr Drug Dosing 77.1 Est GFR ( Amer) 102.9 ml/min Est GFR (Non-Af Amer) 88.8 ml/min BUN/Creatinine Ratio 23.5 H (10-20) Glucose 146 H (70-99(Fasting)) mg/dl POC Glucose 141 H (70-99) mg/dl POC Glucose (other) (70-99) mg/dl Lactate 1.5 (0.4-2.0) mmol/L Calcium 8.1 L (8.6-10.3) mg/dl POC Ioniz Calcium José Antonio (1.12-1.32) mmol/l Phosphorus 2.3 L (2.5-4.9) mg/dl Magnesium 1.8 (1.7-2.4) mg/dl Iron (35-175) mcg/dl TIBC (250-450) mcg/dl Unsaturated IBC (155-355) mcg/dl Transferrin % Sat (20-50) % Ferritin (8-388) ng/ml Total Bilirubin (0.2-1.0) mg/dl Direct Bilirubin (0-0.2) mg/dl AST (13-39) U/L ALT (7-52) U/L Alkaline Phosphatase (34-104) U/L Ammonia 22.0 (18-72) umol/L Troponin I High Sens (0-20) pg/ml B-Natriuretic Peptide (0-100) pg/ml Total Protein (6.0-8.3) gm/dl Albumin (3.4-5.0) gm/dl Globulin (2.5-4.0) gm/dl Albumin/Globulin Ratio (0.9-2) Triglycerides (0-150) mg/dl Vitamin B1 (8-30) nmol/L Vitamin B12 (180-914) pg/ml 25-OH Vitamin D Total (30-100) ng/ml Folate (>5.38) ng/ml Procalcitonin (0-0.5) ng/ml TSH (0.300-4.500) uIu/ml Free T4 (0.61-1.60) ng/dl Urine Color Urine Appearance (Clear) Urine pH (4.5-7.5) Ur Specific Grant (1.000-1.030) Urine Protein (Negative) Urine Glucose (UA) (Negative) Urine Ketones (Negative) Urine Blood (Negative) Urine Nitrite (Negative) Urine Bilirubin (Negative) Urine Urobilinogen (Negative) Ur Leukocyte Esterase (Negative) Urine WBC (Auto) Urine RBC (Auto) U Hyaline Cast (Auto) U Epithel Cells (Auto) Urine Bacteria (Auto) Ur Renal Epithelial Cell Urine Crystals Calcium Oxalate Crystal Uric Acid Crystals Triple Phos Crystals Other Crystals Amorphous Sediment Granular Casts Waxy Casts RBC Casts WBC Casts Pathogenic Casts Other Casts Urine Mucus Urine Other Urine Trichomonas Urine Yeast Urine Sperm Ur Oval Fat Bodies Ur Culture Indicated? Nasal Screen MRSA (PCR) (Negative) Random Vancomycin (10-20) mcg/ml Adenovirus (PCR) (NotDetected) B. pertussis DNA (PCR) (NotDetected) B.parapertussis DNA PCR (NotDetected) C. pneumoniae DNA (PCR) (NotDetected) Coronavirus OC43 (PCR) (NotDetected) Coronavirus HKU1 (PCR) (NotDetected) Coronavirus 229E (PCR) (NotDetected) SARS-CoV-2 (PCR) (NotDetected) Coronavirus NL63 (PCR) (NotDetected) Human Metapneumovir PCR (NotDetected) Influenza Type A (PCR) (NotDetected) Influenza Type B (PCR) (NotDetected) M. pneumoniae (PCR) (NotDetected) Parainfluenza 1 (PCR) (NotDetected) Parainfluenza 2 (PCR) (NotDetected) Parainfluenza 3 (PCR) (NotDetected) Parainfluenza 4 (PCR) (NotDetected) RSV (RT-PCR) (Neg) RSV (PCR) (NotDetected) Entero/Rhino (PCR) (NotDetected) Blood Type Blood Type Recheck Antibody Screen Crossmatch 12/09/07/23 09/07/23 Range/Units 16:13 17:38 20:19 WBC 16.79 H (4.8-10.8) K/ul RBC 3.34 L (4.70-6.10) M/uL Hgb 10.2 L (14.0-18.0) g/dl POC Hgb (14.0-18.0) g/dl Hct 32.0 L (42.0-52.0) % POC Hct (42-52) % MCV 95.8 (80.0-100.0) fL MCH 30.5 (25.0-34.0) pg MCHC 31.9 L (32.0-36.0) g/dL RDW Std Deviation 47.8 H (36.4-46.3) fL RDW Coeff of Jesse 13.5 (11.5-14.5) % Plt Count 224 D (130-400) K/uL MPV 9.5 (9.4-12.4) fL Immature Gran % (Auto) 1.7 % Neut % (Auto) 92.9 % Lymph % (Auto) 2.8 % Payne % (Auto) 2.4 % Eos % (Auto) 0.1 % Baso % (Auto) 0.1 % Neut # (Auto) 15.59 H (1.40-6.50) K/uL Lymph # (Auto) 0.47 L (1.20-3.40) K/uL Payne # (Auto) 0.41 (0.11-0.59) K/uL Eos # (Auto) 0.01 (0.00-0.50) K/uL Baso # (Auto) 0.02 (0.00-0.20) K/uL Immature Gran # (Auto) 0.29 H (0.01-0.20) K/uL Platelet Estimate (Normal) RBC Morphology Echinocytes PT (9.0-12.0) Seconds INR (0.9-1.1) APTT (21-31) Seconds PTT Ratio D-Dimer (0-500) ug/L FEU Sample Site POC pH (7.35-7.45) POC pCO2 (35-46) mmHg POC pO2 (80-95) mmHg POC HCO3 (19-24) lachelle/L POC Total CO2 (24-31) mmol/L POC Base Excess (-9-1.8) lachelle/L ABG pH (7.35-7.45) ABG pH (Temp Correct) (7.35-7.45) ABG pCO2 (35-46) mmHg ABG pCO2 (Temp Corrct (35-46) mmHg ABG pO2 (80-95) mmHg POC ABG pO2 at Pt Temp ABG HCO3 (19-24) mmol/L POC ABG O2 Sat (90-95) % ABG O2 Saturation (90-95) % ABG Base Excess (-9-1.8) mEq/L Mikey Test (Pos) VBG pH 7.25 L 7.31 L (7.36-7.41) VBG pCO2 69 H 60 H (38-50) mmHg VBG pO2 30 47 mmHg VBG HCO3 30 30 mmol/L VBG O2 Saturation < 60.0 74.3 % VBG Base Excess 1.2 2.4 mEq/L Oxygen Given O2 Delivery Device POC O2 Rate POC FiO2 % Tidal Volume PEEP POC Sodium (135-144) mmol/L Sodium (136-145) mmol/L POC Potassium (3.3-5.0) mmol/L Potassium (3.5-5.1) mmol/L POC Chloride (101-112) mmol/L Chloride (98-107) mmol/L Carbon Dioxide (21-32) mmol/L Anion Gap (3-11) POC Anion Gap (16-25) mmol/L POC BUN (7-18) mg/dl BUN (6-23) mg/dl Creatinine (0.6-1.4) mg/dl POC Creatinine (0.6-1.3) mg/dl Est Cr Clr Drug Dosing Est GFR ( Amer) ml/min Est GFR (Non-Af Amer) ml/min BUN/Creatinine Ratio (10-20) Glucose (70-99(Fasting)) mg/dl POC Glucose (70-99) mg/dl POC Glucose (other) (70-99) mg/dl Lactate (0.4-2.0) mmol/L Calcium (8.6-10.3) mg/dl POC Ioniz Calcium José Antonio (1.12-1.32) mmol/l Phosphorus (2.5-4.9) mg/dl Magnesium (1.7-2.4) mg/dl Iron (35-175) mcg/dl TIBC (250-450) mcg/dl Unsaturated IBC (155-355) mcg/dl Transferrin % Sat (20-50) % Ferritin (8-388) ng/ml Total Bilirubin 0.4 (0.2-1.0) mg/dl Direct Bilirubin 0.1 (0-0.2) mg/dl AST 18 (13-39) U/L ALT 21 (7-52) U/L Alkaline Phosphatase 171 H (34-104) U/L Ammonia (18-72) umol/L Troponin I High Sens (0-20) pg/ml B-Natriuretic Peptide (0-100) pg/ml Total Protein 5.2 L (6.0-8.3) gm/dl Albumin 2.6 L (3.4-5.0) gm/dl Globulin (2.5-4.0) gm/dl Albumin/Globulin Ratio (0.9-2) Triglycerides (0-150) mg/dl Vitamin B1 (8-30) nmol/L Vitamin B12 (180-914) pg/ml 25-OH Vitamin D Total (30-100) ng/ml Folate (>5.38) ng/ml Procalcitonin 0.76 H (0-0.5) ng/ml TSH 6.604 H (0.300-4.500) uIu/ml Free T4 0.83 (0.61-1.60) ng/dl Urine Color Urine Appearance (Clear) Urine pH (4.5-7.5) Ur Specific Grant (1.000-1.030) Urine Protein (Negative) Urine Glucose (UA) (Negative) Urine Ketones (Negative) Urine Blood (Negative) Urine Nitrite (Negative) Urine Bilirubin (Negative) Urine Urobilinogen (Negative) Ur Leukocyte Esterase (Negative) Urine WBC (Auto) Urine RBC (Auto) U Hyaline Cast (Auto) U Epithel Cells (Auto) Urine Bacteria (Auto) Ur Renal Epithelial Cell Urine Crystals Calcium Oxalate Crystal Uric Acid Crystals Triple Phos Crystals Other Crystals Amorphous Sediment Granular Casts Waxy Casts RBC Casts WBC Casts Pathogenic Casts Other Casts Urine Mucus Urine Other Urine Trichomonas Urine Yeast Urine Sperm Ur Oval Fat Bodies Ur Culture Indicated? Nasal Screen MRSA (PCR) (Negative) Random Vancomycin (10-20) mcg/ml Adenovirus (PCR) (NotDetected) B. pertussis DNA (PCR) (NotDetected) B.parapertussis DNA PCR (NotDetected) C. pneumoniae DNA (PCR) (NotDetected) Coronavirus OC43 (PCR) (NotDetected) Coronavirus HKU1 (PCR) (NotDetected) Coronavirus 229E (PCR) (NotDetected) SARS-CoV-2 (PCR) (NotDetected) Coronavirus NL63 (PCR) (NotDetected) Human Metapneumovir PCR (NotDetected) Influenza Type A (PCR) (NotDetected) Influenza Type B (PCR) (NotDetected) M. pneumoniae (PCR) (NotDetected) Parainfluenza 1 (PCR) (NotDetected) Parainfluenza 2 (PCR) (NotDetected) Parainfluenza 3 (PCR) (NotDetected) Parainfluenza 4 (PCR) (NotDetected) RSV (RT-PCR) (Neg) RSV (PCR) (NotDetected) Entero/Rhino (PCR) (NotDetected) Blood Type Blood Type Recheck Antibody Screen Crossmatch 09/08/23 09/08/23 09/08/23 Range/Units 01:13 05:52 08:10 WBC 12.33 H (4.8-10.8) K/ul RBC 3.04 L (4.70-6.10) M/uL Hgb 9.3 L (14.0-18.0) g/dl POC Hgb (14.0-18.0) g/dl Hct 28.7 L (42.0-52.0) % POC Hct (42-52) % MCV 94.4 (80.0-100.0) fL MCH 30.6 (25.0-34.0) pg MCHC 32.4 (32.0-36.0) g/dL RDW Std Deviation 46.8 H (36.4-46.3) fL RDW Coeff of Jesse 13.6 (11.5-14.5) % Plt Count 169 (130-400) K/uL MPV 9.8 (9.4-12.4) fL Immature Gran % (Auto) % Neut % (Auto) % Lymph % (Auto) % Payne % (Auto) % Eos % (Auto) % Baso % (Auto) % Neut # (Auto) (1.40-6.50) K/uL Lymph # (Auto) (1.20-3.40) K/uL Payne # (Auto) (0.11-0.59) K/uL Eos # (Auto) (0.00-0.50) K/uL Baso # (Auto) (0.00-0.20) K/uL Immature Gran # (Auto) (0.01-0.20) K/uL Platelet Estimate (Normal) RBC Morphology Echinocytes PT (9.0-12.0) Seconds INR (0.9-1.1) APTT (21-31) Seconds PTT Ratio D-Dimer (0-500) ug/L FEU Sample Site POC pH (7.35-7.45) POC pCO2 (35-46) mmHg POC pO2 (80-95) mmHg POC HCO3 (19-24) lachelle/L POC Total CO2 (24-31) mmol/L POC Base Excess (-9-1.8) lachelle/L ABG pH (7.35-7.45) ABG pH (Temp Correct) (7.35-7.45) ABG pCO2 (35-46) mmHg ABG pCO2 (Temp Corrct (35-46) mmHg ABG pO2 (80-95) mmHg POC ABG pO2 at Pt Temp ABG HCO3 (19-24) mmol/L POC ABG O2 Sat (90-95) % ABG O2 Saturation (90-95) % ABG Base Excess (-9-1.8) mEq/L Mikey Test (Pos) VBG pH 7.36 (7.36-7.41) VBG pCO2 55 H (38-50) mmHg VBG pO2 42 mmHg VBG HCO3 31 mmol/L VBG O2 Saturation 68.6 % VBG Base Excess 4.2 mEq/L Oxygen Given O2 Delivery Device POC O2 Rate POC FiO2 % Tidal Volume PEEP POC Sodium (135-144) mmol/L Sodium 142 (136-145) mmol/L POC Potassium (3.3-5.0) mmol/L Potassium 3.3 L (3.5-5.1) mmol/L POC Chloride (101-112) mmol/L Chloride 107 (98-107) mmol/L Carbon Dioxide 28 (21-32) mmol/L Anion Gap 7 (3-11) POC Anion Gap (16-25) mmol/L POC BUN (7-18) mg/dl BUN 18 (6-23) mg/dl Creatinine 0.77 (0.6-1.4) mg/dl POC Creatinine (0.6-1.3) mg/dl Est Cr Clr Drug Dosing 81.1 Est GFR ( Amer) 105.1 ml/min Est GFR (Non-Af Amer) 90.7 ml/min BUN/Creatinine Ratio 23.4 H (10-20) Glucose 87 (70-99(Fasting)) mg/dl POC Glucose 99 74 (70-99) mg/dl POC Glucose (other) (70-99) mg/dl Lactate (0.4-2.0) mmol/L Calcium 7.9 L (8.6-10.3) mg/dl POC Ioniz Calcium José Antonio (1.12-1.32) mmol/l Phosphorus (2.5-4.9) mg/dl Magnesium 1.5 L (1.7-2.4) mg/dl Iron (35-175) mcg/dl TIBC (250-450) mcg/dl Unsaturated IBC (155-355) mcg/dl Transferrin % Sat (20-50) % Ferritin (8-388) ng/ml Total Bilirubin (0.2-1.0) mg/dl Direct Bilirubin (0-0.2) mg/dl AST (13-39) U/L ALT (7-52) U/L Alkaline Phosphatase (34-104) U/L Ammonia (18-72) umol/L Troponin I High Sens (0-20) pg/ml B-Natriuretic Peptide (0-100) pg/ml Total Protein (6.0-8.3) gm/dl Albumin (3.4-5.0) gm/dl Globulin (2.5-4.0) gm/dl Albumin/Globulin Ratio (0.9-2) Triglycerides (0-150) mg/dl Vitamin B1 (8-30) nmol/L Vitamin B12 (180-914) pg/ml 25-OH Vitamin D Total (30-100) ng/ml Folate (>5.38) ng/ml Procalcitonin (0-0.5) ng/ml TSH (0.300-4.500) uIu/ml Free T4 (0.61-1.60) ng/dl Urine Color Urine Appearance (Clear) Urine pH (4.5-7.5) Ur Specific Grant (1.000-1.030) Urine Protein (Negative) Urine Glucose (UA) (Negative) Urine Ketones (Negative) Urine Blood (Negative) Urine Nitrite (Negative) Urine Bilirubin (Negative) Urine Urobilinogen (Negative) Ur Leukocyte Esterase (Negative) Urine WBC (Auto) Urine RBC (Auto) U Hyaline Cast (Auto) U Epithel Cells (Auto) Urine Bacteria (Auto) Ur Renal Epithelial Cell Urine Crystals Calcium Oxalate Crystal Uric Acid Crystals Triple Phos Crystals Other Crystals Amorphous Sediment Granular Casts Waxy Casts RBC Casts WBC Casts Pathogenic Casts Other Casts Urine Mucus Urine Other Urine Trichomonas Urine Yeast Urine Sperm Ur Oval Fat Bodies Ur Culture Indicated? Nasal Screen MRSA (PCR) (Negative) Random Vancomycin (10-20) mcg/ml Adenovirus (PCR) (NotDetected) B. pertussis DNA (PCR) (NotDetected) B.parapertussis DNA PCR (NotDetected) C. pneumoniae DNA (PCR) (NotDetected) Coronavirus OC43 (PCR) (NotDetected) Coronavirus HKU1 (PCR) (NotDetected) Coronavirus 229E (PCR) (NotDetected) SARS-CoV-2 (PCR) (NotDetected) Coronavirus NL63 (PCR) (NotDetected) Human Metapneumovir PCR (NotDetected) Influenza Type A (PCR) (NotDetected) Influenza Type B (PCR) (NotDetected) M. pneumoniae (PCR) (NotDetected) Parainfluenza 1 (PCR) (NotDetected) Parainfluenza 2 (PCR) (NotDetected) Parainfluenza 3 (PCR) (NotDetected) Parainfluenza 4 (PCR) (NotDetected) RSV (RT-PCR) (Neg) RSV (PCR) (NotDetected) Entero/Rhino (PCR) (NotDetected) Blood Type Blood Type Recheck Antibody Screen Crossmatch 1209/08/23 09/08/23 Range/Units 11:05 14:00 18:15 WBC (4.8-10.8) K/ul RBC (4.70-6.10) M/uL Hgb (14.0-18.0) g/dl POC Hgb (14.0-18.0) g/dl Hct (42.0-52.0) % POC Hct (42-52) % MCV (80.0-100.0) fL MCH (25.0-34.0) pg MCHC (32.0-36.0) g/dL RDW Std Deviation (36.4-46.3) fL RDW Coeff of Jesse (11.5-14.5) % Plt Count (130-400) K/uL MPV (9.4-12.4) fL Immature Gran % (Auto) % Neut % (Auto) % Lymph % (Auto) % Payne % (Auto) % Eos % (Auto) % Baso % (Auto) % Neut # (Auto) (1.40-6.50) K/uL Lymph # (Auto) (1.20-3.40) K/uL Payne # (Auto) (0.11-0.59) K/uL Eos # (Auto) (0.00-0.50) K/uL Baso # (Auto) (0.00-0.20) K/uL Immature Gran # (Auto) (0.01-0.20) K/uL Platelet Estimate (Normal) RBC Morphology Echinocytes PT (9.0-12.0) Seconds INR (0.9-1.1) APTT (21-31) Seconds PTT Ratio D-Dimer (0-500) ug/L FEU Sample Site POC pH (7.35-7.45) POC pCO2 (35-46) mmHg POC pO2 (80-95) mmHg POC HCO3 (19-24) lachelle/L POC Total CO2 (24-31) mmol/L POC Base Excess (-9-1.8) lachelle/L ABG pH (7.35-7.45) ABG pH (Temp Correct) (7.35-7.45) ABG pCO2 (35-46) mmHg ABG pCO2 (Temp Corrct (35-46) mmHg ABG pO2 (80-95) mmHg POC ABG pO2 at Pt Temp ABG HCO3 (19-24) mmol/L POC ABG O2 Sat (90-95) % ABG O2 Saturation (90-95) % ABG Base Excess (-9-1.8) mEq/L Mikey Test (Pos) VBG pH (7.36-7.41) VBG pCO2 (38-50) mmHg VBG pO2 mmHg VBG HCO3 mmol/L VBG O2 Saturation % VBG Base Excess mEq/L Oxygen Given O2 Delivery Device POC O2 Rate POC FiO2 % Tidal Volume PEEP POC Sodium (135-144) mmol/L Sodium (136-145) mmol/L POC Potassium (3.3-5.0) mmol/L Potassium (3.5-5.1) mmol/L POC Chloride (101-112) mmol/L Chloride (98-107) mmol/L Carbon Dioxide (21-32) mmol/L Anion Gap (3-11) POC Anion Gap (16-25) mmol/L POC BUN (7-18) mg/dl BUN (6-23) mg/dl Creatinine (0.6-1.4) mg/dl POC Creatinine (0.6-1.3) mg/dl Est Cr Clr Drug Dosing Est GFR ( Amer) ml/min Est GFR (Non-Af Amer) ml/min BUN/Creatinine Ratio (10-20) Glucose (70-99(Fasting)) mg/dl POC Glucose 81 81 (70-99) mg/dl POC Glucose (other) (70-99) mg/dl Lactate (0.4-2.0) mmol/L Calcium (8.6-10.3) mg/dl POC Ioniz Calcium José Antonio (1.12-1.32) mmol/l Phosphorus (2.5-4.9) mg/dl Magnesium (1.7-2.4) mg/dl Iron (35-175) mcg/dl TIBC (250-450) mcg/dl Unsaturated IBC (155-355) mcg/dl Transferrin % Sat (20-50) % Ferritin (8-388) ng/ml Total Bilirubin (0.2-1.0) mg/dl Direct Bilirubin (0-0.2) mg/dl AST (13-39) U/L ALT (7-52) U/L Alkaline Phosphatase (34-104) U/L Ammonia (18-72) umol/L Troponin I High Sens (0-20) pg/ml B-Natriuretic Peptide (0-100) pg/ml Total Protein (6.0-8.3) gm/dl Albumin (3.4-5.0) gm/dl Globulin (2.5-4.0) gm/dl Albumin/Globulin Ratio (0.9-2) Triglycerides (0-150) mg/dl Vitamin B1 (8-30) nmol/L Vitamin B12 (180-914) pg/ml 25-OH Vitamin D Total (30-100) ng/ml Folate (>5.38) ng/ml Procalcitonin (0-0.5) ng/ml TSH (0.300-4.500) uIu/ml Free T4 (0.61-1.60) ng/dl Urine Color Urine Appearance (Clear) Urine pH (4.5-7.5) Ur Specific Grant (1.000-1.030) Urine Protein (Negative) Urine Glucose (UA) (Negative) Urine Ketones (Negative) Urine Blood (Negative) Urine Nitrite (Negative) Urine Bilirubin (Negative) Urine Urobilinogen (Negative) Ur Leukocyte Esterase (Negative) Urine WBC (Auto) Urine RBC (Auto) U Hyaline Cast (Auto) U Epithel Cells (Auto) Urine Bacteria (Auto) Ur Renal Epithelial Cell Urine Crystals Calcium Oxalate Crystal Uric Acid Crystals Triple Phos Crystals Other Crystals Amorphous Sediment Granular Casts Waxy Casts RBC Casts WBC Casts Pathogenic Casts Other Casts Urine Mucus Urine Other Urine Trichomonas Urine Yeast Urine Sperm Ur Oval Fat Bodies Ur Culture Indicated? Nasal Screen MRSA (PCR) Negative (Negative) Random Vancomycin (10-20) mcg/ml Adenovirus (PCR) (NotDetected) B. pertussis DNA (PCR) (NotDetected) B.parapertussis DNA PCR (NotDetected) C. pneumoniae DNA (PCR) (NotDetected) Coronavirus OC43 (PCR) (NotDetected) Coronavirus HKU1 (PCR) (NotDetected) Coronavirus 229E (PCR) (NotDetected) SARS-CoV-2 (PCR) NEGATIVE (NotDetected) Coronavirus NL63 (PCR) (NotDetected) Human Metapneumovir PCR (NotDetected) Influenza Type A (PCR) Negative (NotDetected) Influenza Type B (PCR) Negative (NotDetected) M. pneumoniae (PCR) (NotDetected) Parainfluenza 1 (PCR) (NotDetected) Parainfluenza 2 (PCR) (NotDetected) Parainfluenza 3 (PCR) (NotDetected) Parainfluenza 4 (PCR) (NotDetected) RSV (RT-PCR) Negative (Neg) RSV (PCR) (NotDetected) Entero/Rhino (PCR) (NotDetected) Blood Type Blood Type Recheck Antibody Screen Crossmatch 09/09/23 09/09/23 09/09/23 Range/Units 05:46 06:29 11:59 WBC 9.90 (4.8-10.8) K/ul RBC 2.99 L (4.70-6.10) M/uL Hgb 9.2 L (14.0-18.0) g/dl POC Hgb (14.0-18.0) g/dl Hct 28.6 L (42.0-52.0) % POC Hct (42-52) % MCV 95.7 (80.0-100.0) fL MCH 30.8 (25.0-34.0) pg MCHC 32.2 (32.0-36.0) g/dL RDW Std Deviation 47.2 H (36.4-46.3) fL RDW Coeff of Jesse 13.7 (11.5-14.5) % Plt Count 157 (130-400) K/uL MPV 9.6 (9.4-12.4) fL Immature Gran % (Auto) % Neut % (Auto) % Lymph % (Auto) % Payne % (Auto) % Eos % (Auto) % Baso % (Auto) % Neut # (Auto) (1.40-6.50) K/uL Lymph # (Auto) (1.20-3.40) K/uL Payne # (Auto) (0.11-0.59) K/uL Eos # (Auto) (0.00-0.50) K/uL Baso # (Auto) (0.00-0.20) K/uL Immature Gran # (Auto) (0.01-0.20) K/uL Platelet Estimate (Normal) RBC Morphology Echinocytes PT (9.0-12.0) Seconds INR (0.9-1.1) APTT (21-31) Seconds PTT Ratio D-Dimer (0-500) ug/L FEU Sample Site POC pH (7.35-7.45) POC pCO2 (35-46) mmHg POC pO2 (80-95) mmHg POC HCO3 (19-24) lachelle/L POC Total CO2 (24-31) mmol/L POC Base Excess (-9-1.8) lachelle/L ABG pH (7.35-7.45) ABG pH (Temp Correct) (7.35-7.45) ABG pCO2 (35-46) mmHg ABG pCO2 (Temp Corrct (35-46) mmHg ABG pO2 (80-95) mmHg POC ABG pO2 at Pt Temp ABG HCO3 (19-24) mmol/L POC ABG O2 Sat (90-95) % ABG O2 Saturation (90-95) % ABG Base Excess (-9-1.8) mEq/L Mikey Test (Pos) VBG pH (7.36-7.41) VBG pCO2 (38-50) mmHg VBG pO2 mmHg VBG HCO3 mmol/L VBG O2 Saturation % VBG Base Excess mEq/L Oxygen Given O2 Delivery Device POC O2 Rate POC FiO2 % Tidal Volume PEEP POC Sodium (135-144) mmol/L Sodium 144 (136-145) mmol/L POC Potassium (3.3-5.0) mmol/L Potassium 3.3 L (3.5-5.1) mmol/L POC Chloride (101-112) mmol/L Chloride 107 (98-107) mmol/L Carbon Dioxide 29 (21-32) mmol/L Anion Gap 8 (3-11) POC Anion Gap (16-25) mmol/L POC BUN (7-18) mg/dl BUN 17 (6-23) mg/dl Creatinine 0.71 (0.6-1.4) mg/dl POC Creatinine (0.6-1.3) mg/dl Est Cr Clr Drug Dosing 87.9 Est GFR ( Amer) 108.6 ml/min Est GFR (Non-Af Amer) 93.7 ml/min BUN/Creatinine Ratio 23.9 H (10-20) Glucose 83 (70-99(Fasting)) mg/dl POC Glucose 91 101 H (70-99) mg/dl POC Glucose (other) (70-99) mg/dl Lactate (0.4-2.0) mmol/L Calcium 8.0 L (8.6-10.3) mg/dl POC Ioniz Calcium José Antonio (1.12-1.32) mmol/l Phosphorus (2.5-4.9) mg/dl Magnesium 1.7 (1.7-2.4) mg/dl Iron (35-175) mcg/dl TIBC (250-450) mcg/dl Unsaturated IBC (155-355) mcg/dl Transferrin % Sat (20-50) % Ferritin (8-388) ng/ml Total Bilirubin (0.2-1.0) mg/dl Direct Bilirubin (0-0.2) mg/dl AST (13-39) U/L ALT (7-52) U/L Alkaline Phosphatase (34-104) U/L Ammonia (18-72) umol/L Troponin I High Sens (0-20) pg/ml B-Natriuretic Peptide (0-100) pg/ml Total Protein (6.0-8.3) gm/dl Albumin (3.4-5.0) gm/dl Globulin (2.5-4.0) gm/dl Albumin/Globulin Ratio (0.9-2) Triglycerides (0-150) mg/dl Vitamin B1 (8-30) nmol/L Vitamin B12 (180-914) pg/ml 25-OH Vitamin D Total (30-100) ng/ml Folate (>5.38) ng/ml Procalcitonin (0-0.5) ng/ml TSH (0.300-4.500) uIu/ml Free T4 (0.61-1.60) ng/dl Urine Color Urine Appearance (Clear) Urine pH (4.5-7.5) Ur Specific Grant (1.000-1.030) Urine Protein (Negative) Urine Glucose (UA) (Negative) Urine Ketones (Negative) Urine Blood (Negative) Urine Nitrite (Negative) Urine Bilirubin (Negative) Urine Urobilinogen (Negative) Ur Leukocyte Esterase (Negative) Urine WBC (Auto) Urine RBC (Auto) U Hyaline Cast (Auto) U Epithel Cells (Auto) Urine Bacteria (Auto) Ur Renal Epithelial Cell Urine Crystals Calcium Oxalate Crystal Uric Acid Crystals Triple Phos Crystals Other Crystals Amorphous Sediment Granular Casts Waxy Casts RBC Casts WBC Casts Pathogenic Casts Other Casts Urine Mucus Urine Other Urine Trichomonas Urine Yeast Urine Sperm Ur Oval Fat Bodies Ur Culture Indicated? Nasal Screen MRSA (PCR) (Negative) Random Vancomycin (10-20) mcg/ml Adenovirus (PCR) (NotDetected) B. pertussis DNA (PCR) (NotDetected) B.parapertussis DNA PCR (NotDetected) C. pneumoniae DNA (PCR) (NotDetected) Coronavirus OC43 (PCR) (NotDetected) Coronavirus HKU1 (PCR) (NotDetected) Coronavirus 229E (PCR) (NotDetected) SARS-CoV-2 (PCR) (NotDetected) Coronavirus NL63 (PCR) (NotDetected) Human Metapneumovir PCR (NotDetected) Influenza Type A (PCR) (NotDetected) Influenza Type B (PCR) (NotDetected) M. pneumoniae (PCR) (NotDetected) Parainfluenza 1 (PCR) (NotDetected) Parainfluenza 2 (PCR) (NotDetected) Parainfluenza 3 (PCR) (NotDetected) Parainfluenza 4 (PCR) (NotDetected) RSV (RT-PCR) (Neg) RSV (PCR) (NotDetected) Entero/Rhino (PCR) (NotDetected) Blood Type Blood Type Recheck Antibody Screen Crossmatch 09/10/23 09/10/23 09/11/23 Range/Units 06:25 09:49 05:30 WBC (4.8-10.8) K/ul RBC (4.70-6.10) M/uL Hgb (14.0-18.0) g/dl POC Hgb (14.0-18.0) g/dl Hct (42.0-52.0) % POC Hct (42-52) % MCV (80.0-100.0) fL MCH (25.0-34.0) pg MCHC (32.0-36.0) g/dL RDW Std Deviation (36.4-46.3) fL RDW Coeff of Jesse (11.5-14.5) % Plt Count (130-400) K/uL MPV (9.4-12.4) fL Immature Gran % (Auto) % Neut % (Auto) % Lymph % (Auto) % Payne % (Auto) % Eos % (Auto) % Baso % (Auto) % Neut # (Auto) (1.40-6.50) K/uL Lymph # (Auto) (1.20-3.40) K/uL Payne # (Auto) (0.11-0.59) K/uL Eos # (Auto) (0.00-0.50) K/uL Baso # (Auto) (0.00-0.20) K/uL Immature Gran # (Auto) (0.01-0.20) K/uL Platelet Estimate (Normal) RBC Morphology Echinocytes PT (9.0-12.0) Seconds INR (0.9-1.1) APTT (21-31) Seconds PTT Ratio D-Dimer (0-500) ug/L FEU Sample Site POC pH (7.35-7.45) POC pCO2 (35-46) mmHg POC pO2 (80-95) mmHg POC HCO3 (19-24) lachelle/L POC Total CO2 (24-31) mmol/L POC Base Excess (-9-1.8) lachelle/L ABG pH (7.35-7.45) ABG pH (Temp Correct) (7.35-7.45) ABG pCO2 (35-46) mmHg ABG pCO2 (Temp Corrct (35-46) mmHg ABG pO2 (80-95) mmHg POC ABG pO2 at Pt Temp ABG HCO3 (19-24) mmol/L POC ABG O2 Sat (90-95) % ABG O2 Saturation (90-95) % ABG Base Excess (-9-1.8) mEq/L Mikey Test (Pos) VBG pH 7.51 H (7.36-7.41) VBG pCO2 38 (38-50) mmHg VBG pO2 64 mmHg VBG HCO3 30 mmol/L VBG O2 Saturation 94.4 % VBG Base Excess 6.9 mEq/L Oxygen Given O2 Delivery Device POC O2 Rate POC FiO2 % Tidal Volume PEEP POC Sodium (135-144) mmol/L Sodium 142 145 (136-145) mmol/L POC Potassium (3.3-5.0) mmol/L Potassium 3.5 3.4 L (3.5-5.1) mmol/L POC Chloride (101-112) mmol/L Chloride 107 108 H (98-107) mmol/L Carbon Dioxide 28 31 (21-32) mmol/L Anion Gap 7 6 (3-11) POC Anion Gap (16-25) mmol/L POC BUN (7-18) mg/dl BUN 20 21 (6-23) mg/dl Creatinine 0.79 0.94 (0.6-1.4) mg/dl POC Creatinine (0.6-1.3) mg/dl Est Cr Clr Drug Dosing 79.0 66.4 Est GFR ( Amer) 104.0 93.5 ml/min Est GFR (Non-Af Amer) 89.7 80.7 ml/min BUN/Creatinine Ratio 25.3 H 22.3 H (10-20) Glucose 139 H 102 H (70-99(Fasting)) mg/dl POC Glucose (70-99) mg/dl POC Glucose (other) (70-99) mg/dl Lactate (0.4-2.0) mmol/L Calcium 8.4 L 8.6 (8.6-10.3) mg/dl POC Ioniz Calcium José Antonio (1.12-1.32) mmol/l Phosphorus (2.5-4.9) mg/dl Magnesium 1.7 1.7 (1.7-2.4) mg/dl Iron (35-175) mcg/dl TIBC (250-450) mcg/dl Unsaturated IBC (155-355) mcg/dl Transferrin % Sat (20-50) % Ferritin (8-388) ng/ml Total Bilirubin (0.2-1.0) mg/dl Direct Bilirubin (0-0.2) mg/dl AST (13-39) U/L ALT (7-52) U/L Alkaline Phosphatase (34-104) U/L Ammonia (18-72) umol/L Troponin I High Sens (0-20) pg/ml B-Natriuretic Peptide (0-100) pg/ml Total Protein (6.0-8.3) gm/dl Albumin (3.4-5.0) gm/dl Globulin (2.5-4.0) gm/dl Albumin/Globulin Ratio (0.9-2) Triglycerides (0-150) mg/dl Vitamin B1 (8-30) nmol/L Vitamin B12 (180-914) pg/ml 25-OH Vitamin D Total 43.7 (30-100) ng/ml Folate (>5.38) ng/ml Procalcitonin (0-0.5) ng/ml TSH (0.300-4.500) uIu/ml Free T4 (0.61-1.60) ng/dl Urine Color Urine Appearance (Clear) Urine pH (4.5-7.5) Ur Specific Grant (1.000-1.030) Urine Protein (Negative) Urine Glucose (UA) (Negative) Urine Ketones (Negative) Urine Blood (Negative) Urine Nitrite (Negative) Urine Bilirubin (Negative) Urine Urobilinogen (Negative) Ur Leukocyte Esterase (Negative) Urine WBC (Auto) Urine RBC (Auto) U Hyaline Cast (Auto) U Epithel Cells (Auto) Urine Bacteria (Auto) Ur Renal Epithelial Cell Urine Crystals Calcium Oxalate Crystal Uric Acid Crystals Triple Phos Crystals Other Crystals Amorphous Sediment Granular Casts Waxy Casts RBC Casts WBC Casts Pathogenic Casts Other Casts Urine Mucus Urine Other Urine Trichomonas Urine Yeast Urine Sperm Ur Oval Fat Bodies Ur Culture Indicated? Nasal Screen MRSA (PCR) (Negative) Random Vancomycin (10-20) mcg/ml Adenovirus (PCR) (NotDetected) B. pertussis DNA (PCR) (NotDetected) B.parapertussis DNA PCR (NotDetected) C. pneumoniae DNA (PCR) (NotDetected) Coronavirus OC43 (PCR) (NotDetected) Coronavirus HKU1 (PCR) (NotDetected) Coronavirus 229E (PCR) (NotDetected) SARS-CoV-2 (PCR) (NotDetected) Coronavirus NL63 (PCR) (NotDetected) Human Metapneumovir PCR (NotDetected) Influenza Type A (PCR) (NotDetected) Influenza Type B (PCR) (NotDetected) M. pneumoniae (PCR) (NotDetected) Parainfluenza 1 (PCR) (NotDetected) Parainfluenza 2 (PCR) (NotDetected) Parainfluenza 3 (PCR) (NotDetected) Parainfluenza 4 (PCR) (NotDetected) RSV (RT-PCR) (Neg) RSV (PCR) (NotDetected) Entero/Rhino (PCR) (NotDetected) Blood Type Blood Type Recheck Antibody Screen Crossmatch 09/11/23 09/12/23 09/12/23 Range/Units 22:33 07:30 12:55 WBC 13.42 H 15.39 H (4.8-10.8) K/ul RBC 3.39 L 3.26 L (4.70-6.10) M/uL Hgb 10.4 L 10.0 L (14.0-18.0) g/dl POC Hgb (14.0-18.0) g/dl Hct 31.6 L 31.2 L (42.0-52.0) % POC Hct (42-52) % MCV 93.2 95.7 (80.0-100.0) fL MCH 30.7 30.7 (25.0-34.0) pg MCHC 32.9 32.1 (32.0-36.0) g/dL RDW Std Deviation 47.9 H 50.2 H (36.4-46.3) fL RDW Coeff of Jesse 14.8 H 15.2 H (11.5-14.5) % Plt Count 196 210 (130-400) K/uL MPV 10.5 9.9 (9.4-12.4) fL Immature Gran % (Auto) % Neut % (Auto) % Lymph % (Auto) % Payne % (Auto) % Eos % (Auto) % Baso % (Auto) % Neut # (Auto) (1.40-6.50) K/uL Lymph # (Auto) (1.20-3.40) K/uL Payne # (Auto) (0.11-0.59) K/uL Eos # (Auto) (0.00-0.50) K/uL Baso # (Auto) (0.00-0.20) K/uL Immature Gran # (Auto) (0.01-0.20) K/uL Platelet Estimate (Normal) RBC Morphology Echinocytes PT (9.0-12.0) Seconds INR (0.9-1.1) APTT (21-31) Seconds PTT Ratio D-Dimer (0-500) ug/L FEU Sample Site POC pH (7.35-7.45) POC pCO2 (35-46) mmHg POC pO2 (80-95) mmHg POC HCO3 (19-24) lachelle/L POC Total CO2 (24-31) mmol/L POC Base Excess (-9-1.8) lachelle/L ABG pH (7.35-7.45) ABG pH (Temp Correct) (7.35-7.45) ABG pCO2 (35-46) mmHg ABG pCO2 (Temp Corrct (35-46) mmHg ABG pO2 (80-95) mmHg POC ABG pO2 at Pt Temp ABG HCO3 (19-24) mmol/L POC ABG O2 Sat (90-95) % ABG O2 Saturation (90-95) % ABG Base Excess (-9-1.8) mEq/L Mikey Test (Pos) VBG pH (7.36-7.41) VBG pCO2 (38-50) mmHg VBG pO2 mmHg VBG HCO3 mmol/L VBG O2 Saturation % VBG Base Excess mEq/L Oxygen Given O2 Delivery Device POC O2 Rate POC FiO2 % Tidal Volume PEEP POC Sodium (135-144) mmol/L Sodium 144 (136-145) mmol/L POC Potassium (3.3-5.0) mmol/L Potassium 3.6 (3.5-5.1) mmol/L POC Chloride (101-112) mmol/L Chloride 110 H (98-107) mmol/L Carbon Dioxide 27 (21-32) mmol/L Anion Gap 7 (3-11) POC Anion Gap (16-25) mmol/L POC BUN (7-18) mg/dl BUN 24 H (6-23) mg/dl Creatinine 0.98 (0.6-1.4) mg/dl POC Creatinine (0.6-1.3) mg/dl Est Cr Clr Drug Dosing 63.7 Est GFR ( Amer) 88.9 ml/min Est GFR (Non-Af Amer) 76.7 ml/min BUN/Creatinine Ratio 24.5 H (10-20) Glucose 102 H (70-99(Fasting)) mg/dl POC Glucose (70-99) mg/dl POC Glucose (other) (70-99) mg/dl Lactate 1.8 (0.4-2.0) mmol/L Calcium 8.7 (8.6-10.3) mg/dl POC Ioniz Calcium José Antonio (1.12-1.32) mmol/l Phosphorus (2.5-4.9) mg/dl Magnesium (1.7-2.4) mg/dl Iron (35-175) mcg/dl TIBC (250-450) mcg/dl Unsaturated IBC (155-355) mcg/dl Transferrin % Sat (20-50) % Ferritin (8-388) ng/ml Total Bilirubin (0.2-1.0) mg/dl Direct Bilirubin (0-0.2) mg/dl AST (13-39) U/L ALT (7-52) U/L Alkaline Phosphatase (34-104) U/L Ammonia (18-72) umol/L Troponin I High Sens (0-20) pg/ml B-Natriuretic Peptide 614 H (0-100) pg/ml Total Protein (6.0-8.3) gm/dl Albumin (3.4-5.0) gm/dl Globulin (2.5-4.0) gm/dl Albumin/Globulin Ratio (0.9-2) Triglycerides (0-150) mg/dl Vitamin B1 (8-30) nmol/L Vitamin B12 (180-914) pg/ml 25-OH Vitamin D Total (30-100) ng/ml Folate (>5.38) ng/ml Procalcitonin (0-0.5) ng/ml TSH (0.300-4.500) uIu/ml Free T4 (0.61-1.60) ng/dl Urine Color Urine Appearance (Clear) Urine pH (4.5-7.5) Ur Specific Grant (1.000-1.030) Urine Protein (Negative) Urine Glucose (UA) (Negative) Urine Ketones (Negative) Urine Blood (Negative) Urine Nitrite (Negative) Urine Bilirubin (Negative) Urine Urobilinogen (Negative) Ur Leukocyte Esterase (Negative) Urine WBC (Auto) Urine RBC (Auto) U Hyaline Cast (Auto) U Epithel Cells (Auto) Urine Bacteria (Auto) Ur Renal Epithelial Cell Urine Crystals Calcium Oxalate Crystal Uric Acid Crystals Triple Phos Crystals Other Crystals Amorphous Sediment Granular Casts Waxy Casts RBC Casts WBC Casts Pathogenic Casts Other Casts Urine Mucus Urine Other Urine Trichomonas Urine Yeast Urine Sperm Ur Oval Fat Bodies Ur Culture Indicated? Nasal Screen MRSA (PCR) (Negative) Random Vancomycin (10-20) mcg/ml Adenovirus (PCR) (NotDetected) B. pertussis DNA (PCR) (NotDetected) B.parapertussis DNA PCR (NotDetected) C. pneumoniae DNA (PCR) (NotDetected) Coronavirus OC43 (PCR) (NotDetected) Coronavirus HKU1 (PCR) (NotDetected) Coronavirus 229E (PCR) (NotDetected) SARS-CoV-2 (PCR) (NotDetected) Coronavirus NL63 (PCR) (NotDetected) Human Metapneumovir PCR (NotDetected) Influenza Type A (PCR) (NotDetected) Influenza Type B (PCR) (NotDetected) M. pneumoniae (PCR) (NotDetected) Parainfluenza 1 (PCR) (NotDetected) Parainfluenza 2 (PCR) (NotDetected) Parainfluenza 3 (PCR) (NotDetected) Parainfluenza 4 (PCR) (NotDetected) RSV (RT-PCR) (Neg) RSV (PCR) (NotDetected) Entero/Rhino (PCR) (NotDetected) Blood Type Blood Type Recheck Antibody Screen Crossmatch
--- NOTE | 2023-09-12 14:14 | Hospitalist Progress Note ---
Date of Service September 12, 2023 Assessment & Plan (1) Acute respiratory failure with hypoxia and hypercapnia: Plan: Supplemental oxygen to maintain saturation greater than 90%. Treat suspected underlying pneumonia and possible congestive heart failure. Serial chest x-ray. Wean off as tolerated. (2) Acute diastolic CHF (congestive heart failure): Plan: Continue Lasix diuresis. BNP is elevated at 614. Monitor intake and output. Serial chest x-ray. (3) Pneumonia: Plan: Suspected. Possibly bilateral. Continue intravenous cefepime and Flagyl. Serial chest x-ray. Sputum culture if sputum is produced. (4) Perforated viscus: Plan: s/p ex lap 08/31/[address] Sorenson ( POD #[id number]) for perforated cecum. No malignancy seen on pathology report. Intra-peritoneal cultures grew pseudomonas - pansensitive - as well as bacteroides. He had been on zosyn, then briefly meropenem, then changed to cefepime/flagyl . Diet was previously advanced to regular. However, he is lethargic now due to apparent toxic encephalopathy and not taking anything p.o. Dr. Sorenson to remove JUSTINA drain soon (5) Intra-abdominal abscess: Plan: as seen on ex lap 08/31/23. Likely cause of peritonitis and severe sepsis . Now resolved. (6) SBO (small bowel obstruction): Plan: Occurred early July upon presentation to [facility] in [facility] . This was treated conservatively with NG tube and he did not require surgery at that time. Resolved (7) Abnormal CT scan, chest: Plan: nodules also present - concerning for possible underlying malignancy. Appreciate pulm consultation and recs. This will need continued outpatient follow-up. (8) Acute metabolic encephalopathy: Plan: Due to sepsis present on admission. He may have an element of toxic encephalopathy at this time from the Seroquel, which has been discontinued. Supportive care. 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 Now resolved. (10) SHEBA (acute kidney injury): Plan: Present on admission. Now resolved. Serial labs. Monitor intake and output (11) Elevated troponin: Plan: No evidence of acute coronary syndrome. Likely myocardial demand ischemia. (12) COPD (chronic obstructive pulmonary disease): Plan: Stable. Continue current medical management (13) Alcohol abuse: Plan: Chronic. Recent alcohol withdrawal at outside hospital in July. Apparently this course was complicated by withdrawal seizures. Last alcohol intake was over 1 month ago (14) Paroxysmal A-fib: Plan: He remains in normal sinus rhythm. Continue amiodarone and Eliquis. Telemetry. (15) Polymyalgia rheumatica: Plan: Steroid-dependent. Parenteral steroid therapy while lethargic. Oral intake of prednisone is irregular. (16) Severe protein-calorie malnutrition: Plan: Diet was recently advanced to regular diet but he is again lethargic and oral intake is on hold (17) Rheumatoid arthritis: Plan: Stable. Continue steroid therapy. Hydroxychloroquine is temporarily on hold (18) Anemia: Plan: H/H remain acceptable. B12, folate, Fe studies wnl. Likely anemia of chronic disease from RA, bone marrow suppression from etoh, blood draws, etc. (19) DVT prophylaxis: Plan: Eliquis therapy (20) Hypokalemia: Plan: replaced . Resolved (21) Hypomagnesemia: Plan: replaced. Resolved Plan Anticipate eventual discharge to rehab facility. Hopefully yet this week Admission and Anticipated Discharge Date Admission Date: August 26, 2023 Subjective Very lethargic. Daughter and granddaughter are at the bedside and states that this is a significant change for him. This probably is toxic encephalopathy from the new medication Seroquel which will be discontinued. Will use IM Zyprexa as needed. The appearance of the chest x-ray looks like congestive heart failure and BNP is elevated. He has been started on parenteral Lasix. He is mucous membranes are dry but this could be medication side effect. He does have mild peripheral edema in the lower extremities. Difficult to say if he is truly fluid overloaded. Parenteral Lasix ordered and we will see the response. He remains on cefepime and Flagyl for suspected bilateral pneumonia. Will repeat chest x-ray again tomorrow, September 13. He has not reliably taking oral medications and prednisone will be switched to intravenous hydrocortisone for now. Review of Systems 2 Review of Systems: The patient is lethargic and unable to answer any questions related to review of systems at this time Physical Exam 2 Physical Exam: General-lethargic. Nonverbal. No fever HEENT-head atraumatic and normocephalic, pupils equal and reactive to light, extraocular muscles intact. Oral mucosa is dry Neck-no lymphadenopathy or thyromegaly, trachea midline Chest-scattered rhonchi. Diminished breath sounds. No wheezing Cardiac-regular rate and rhythm, normal S1 and S2 Abdomen-normal bowel sounds, no hepatosplenomegaly Extremities-1+ pitting edema bilateral lower extremities below the knees Neuro-no apparent focal deficits. Psych-cannot assess Results & Data Results & Data Vital Signs (Past 12 Hours) Vital Signs Temp Pulse Pulse Resp BP Pulse Ox O2 Del Method 09/12/23 12:04 36.5 C 84 18 137/81 93 Room Air 09/12/23 08:14 36.5 C 73 18 176/93 H 91 Room Air 09/12/23 07:44 100 H Laboratory Results 09/12/23 07:30 09/12/23 07:30 PG Care Time/CCT Total # of Minutes Spent Total Time Spent with Patient: Total time spent is greater than 50% in coordination of care (as documented) at patient's floor/unit and/or counseling patient: Coding Level of Care Code 60935 SUB INP/OBS CARE 3/50MIN Diagnoses Acute respiratory failure with hypoxia and hypercapnia J96.01; J96.02 Acute diastolic CHF (congestive heart failure) I50.31 Pneumonia J18.9 Laterality: left Lung location: unspecified part of lung Pneumonia type: due to unspecified organism Perforated viscus R19.8 Intra-abdominal abscess K65.1 SBO (small bowel obstruction) K56.[address] scan, chest R93.89 Acute metabolic encephalopathy G93.41 Sepsis A41.9 Acute respiratory failure type: with hypoxia Sepsis acute organ dysfunction status: with acute organ dysfunction Sepsis type: sepsis due to unspecified organism Severe sepsis shock status: unspecified SHEBA (acute kidney injury) N17.9 Elevated troponin R79.89 COPD (chronic obstructive pulmonary disease) J44.9 Alcohol abuse F10.10 Paroxysmal A-fib I48.0 Polymyalgia rheumatica M35.3 Severe protein-calorie malnutrition E43 Rheumatoid arthritis M06.9 Anemia D64.9 DVT prophylaxis Z29.9 Hypokalemia E87.6 Hypomagnesemia E83.42 (3) Pneumonia Laterality: left Lung location: unspecified part of lung Pneumonia type: due to unspecified organism Qualified Code(s): J18.9 - Pneumonia, unspecified organism (9) Sepsis Acute respiratory failure type: with hypoxia Sepsis acute organ dysfunction status: with acute organ dysfunction Sepsis type: sepsis due to unspecified organism Severe sepsis shock status: unspecified
--- NOTE | 2023-09-12 20:49 | Electrocardiogram Report ---
Test Reason : Blood Pressure : / mmHG Vent. Rate : 085 BPM Atrial Rate : 085 BPM P-R Int : 138 ms QRS Dur : 098 ms QT Int : 320 ms P-R-T Axes : 047 -35 -50 degrees QTc Int : 381 ms Normal sinus rhythm Left axis deviation T wave abnormality, consider anterolateral ischemia Prolonged QT Abnormal ECG When compared with ECG of 09-SEP-2023 17:55, No significant change Confirmed by Nick Stafford ([id number]) on 09/12/2023 8:48:52 PM Referred By: REFERRED SELF Confirmed By:Nick Stafford
[2023-09-12] MEDS ORDERED: HEPARIN SOD 5,000 UNIT/0.5 ML VIAL SQ ONE (22:21)
[2023-09-13] MEDS: CEFEPIME 2,000 MG in SYRINGE 0 ML IV SCH (04:08)
[2023-09-13] MEDS: metroNIDAZOLE 500 MG/100 ML BAG IV SCH (04:08)
[2023-09-13 08:06] LABS: Basophils # (auto) 0.02 K/uL (0.00-0.20); Basophils % (auto) 0.1 %; Hematocrit (blood only) 32.3 % (42.0-52.0); Hemoglobin 10.2 g/dl (14.0-18.0); Immature Granulocytes # (auto) 0.16 K/uL (0.01-0.20); Immature Granulocytes % (auto) 1.1 %; Lymphocytes # (auto) 1.05 K/uL (1.20-3.40); Lymphocytes % (auto) 7.2 %; Mean Corpuscular Hemoglobin 30.4 pg (25.0-34.0); Mean Corpuscular Hgb Conc 31.6 g/dL (32.0-36.0); Mean Corpuscular Volume 96.4 fL (80.0-100.0); Mean Platelet Volume 9.6 fL (9.4-12.4); Monocytes % (auto) 7.5 %; Neutrophils # (auto) 12.24 K/uL (1.40-6.50); Neutrophils % (auto) 84.1 %; Platelet Count 275 K/uL (130-400); RDW Standard Deviation 53.1 fL (36.4-46.3); Red Blood Count 3.35 M/uL (4.70-6.10); White Blood Count 14.57 K/ul (4.8-10.8)
[2023-09-13 08:25] LABS: Calcium 8.7 mg/dl (8.6-10.3); Potassium 3.6 mmol/L (3.5-5.1)
[2023-09-13 08:32] LABS: BUN Creatinine Ratio 21.4 (10-20); Creatinine Clr Calc Pharmacy 39.9 ml/min; Est GFR (African American) 51.5 ml/min; Est GFR (Non-African American) 44.4 ml/min
[2023-09-13] MEDS ORDERED: AMIODARONE 200 MG TAB PO SCH (09:00)
--- NOTE | 2023-09-13 09:42 | XRay Report ---
XR chest 1V portable CLINICAL HISTORY: hypoxia TECHNIQUE: Single frontal radiograph of the chest was obtained. Comparison: Comparison is made to chest radiograph 09/10/2023 FINDINGS: No lines and tubes are seen. Calcified aortic knob is seen. Bilateral lower lung predominant airspace opacities are seen. Small right pleural effusion. IMPRESSION: Stable appearance of bilateral lower lung predominant airspace opacities compatible with atelectasis, aspiration, and/or pneumonia. Likely small right pleural effusion. ACT 112: Negative or not required by law. Electronically signed by: Brando Yuen M.D. 09/13/2023 9:40 AM
[2023-09-13] MEDS ORDERED: SODIUM CHLORIDE 0.9% 500 ML IV ONE (10:22)
[2023-09-13] MEDS: BACITRACIN OINT 14 GM TUBE EXT SCH ×3 (10:32→23:25)
[2023-09-13] MEDS: SODIUM CHLORIDE 0.9% 1,000 ML IV SCH ×2 (11:35→18:59)
[2023-09-13] MEDS: PIPER/TAZO 4.5g in D5W MINI-B 100 ML IV ONE ×2 (11:36→11:49)
[2023-09-13] MEDS: FOLIC ACID 1 MG TAB PO SCH (11:54)
[2023-09-13] MEDS: DOCUSATE SODIUM 100 MG CAP PO SCH ×2 (11:54→20:29)
[2023-09-13] MEDS: MAGNESIUM OXIDE 400 MG TAB PO SCH ×2 (11:54→20:30)
[2023-09-13] MEDS: APIXABAN 5 MG TABLET PO SCH (11:54)
[2023-09-13] MEDS: POTASSIUM CHLORIDE CRTAB 20 MEQ TABCR PO SCH (11:55)
[2023-09-13] MEDS: UMECLIDINIUM BROMIDE 62.5MCG/BLISTER 7 PUFFS/INHALER INH SCH (11:55)
[2023-09-13] MEDS: PANTOprazole 40 MG TAB PO SCH (11:55)
[2023-09-13] MEDS: METOPROLOL TARTRATE 25 MG TAB PO SCH ×2 (11:55→20:30)
[2023-09-13] MEDS: ZINC SULFATE 220 MG CAPSULE PO SCH (11:55)
[2023-09-13] MEDS: THIAMINE HCL 100 MG TAB PO SCH ×2 (11:55→20:30)
[2023-09-13] MEDS: CEROVITE ADV FORMULA TAB PO SCH (11:55)
[2023-09-13] MEDS: CHOLECALCIFEROL 1,000 UNITS 25 MCG TAB PO SCH (11:56)
[2023-09-13] MEDS: HYDROCORTISONE SOD 50 MG in SYRINGE 0 ML IV SCH ×2 (12:38→20:42)
[2023-09-13] MEDS: FUROSEMIDE 40 MG/4 ML VIAL IV SCH (12:45)
--- NOTE | 2023-09-13 13:06 | Surgery Progress Note ---
Date of Service September 13, 2023 Assessment & Plan (1) Perforated viscus: Plan: F/U S/P Exploratory Laparotomy and Partial Resection of Cecum with Drainage of Pelvic Abscess, POD 3 slow making progress, waiting for pass gas, speech consult for evaluation aspiration. 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 09/06/2023 7:45 AM F/U S/P Exploratory Laparotomy and Partial Resection of Cecum with Drainage of Pelvic Abscess, POD 6 slow making progress, waiting for pass gas, speech consult for evaluation aspiration. pt was aspiration last night. continue iv antibiotic Dulcolax 10 mg pr pt may benefits from PPN, medicine team please order PPN, PICC line. Thanks. will F/U. 09/07/2023 4:47 PM F/U S/P Exploratory Laparotomy and Partial Resection of Cecum with Drainage of Pelvic Abscess, POD 7 slow making progress, passed gas and BM. , speech consult for evaluation aspiration. continue iv antibiotic started PPN, repeat labs in morning. will F/U. 09/08/2023 3:31 PM F/U S/P Exploratory Laparotomy and Partial Resection of Cecum with Drainage of Pelvic Abscess, POD 8 doing better today, slow making progress, speech consult for evaluation aspiration. continue iv antibiotic started PPN, repeat labs in morning. will F/U. 09/09/2023 7:51 AM F/U S/P Exploratory Laparotomy and Partial Resection of Cecum with Drainage of Pelvic Abscess, POD 9 doing fine today, WBC normal low protein albumin pt will have a swallow evaluation study today. continue iv antibiotic repeat labs in morning. 09/10/2023 4:00 PM F/U S/P Exploratory Laparotomy and Partial Resection of Cecum with Drainage of Pelvic Abscess, POD 10 doing better today, tolerated diet I update to family members about pathology report. may remove JUSTINA in 1-2 days. will F/U. 09/11/2023 4:27 PM F/U S/P Exploratory Laparotomy and Partial Resection of Cecum with Drainage of Pelvic Abscess, POD 11 tolerated diet may remove JUSTINA tomorrow. . will F/U. 09/12/2023 1:47 PM F/U S/P Exploratory Laparotomy and Partial Resection of Cecum with Drainage of Pelvic Abscess, POD 12 tolerated diet I remove JUSTINA today. will F/U. 09/13/2023 1:12 PM F/U S/P Exploratory Laparotomy and Partial Resection of Cecum with Drainage of Pelvic Abscess, POD 13 mental status decline, D/W family members, based poor nutrition status, long history alcohol abuse, poor prognosis. pt's family members understood. I answered all questions, continue I antibiotic. recommend to transfer ICU will F/U. Admission and Anticipated Discharge Date Admission Date: August 26, 2023 Supervising Physician Co-Signing Physician Notes I saw and examined this patient this am. He is more awake at this time of the morning compared to yesterday am. His daughter is at the bedside confirming his sleep patterns are off at home and even worse here at this time noting he went to sleep at 5 am one morning then was awakened/back up at 9am. He is lethargic but able to respond to me. His O2 saturation requirement is decreased today to 4L face mask and he continues to Sat at 100%. He remains afebrile. He is denying abdominal pain, nausea, and believes he passed a small amount of flatus at some point yesterday. I would keep him NPO for today until we can be sure he is having more consistent bowel function and is generally well awake. Keep blinds open, lights on in the room during the day time. Discussed a potential mild, non-sedating sleep aid at bedtime tonight like Melatonin. OOB to chair today. Encourage incentive spirometer. PT eval and treat Dr. Sorenson will return tomorrow for continued surgical follow up and assessment. Subjective mental status decline. no fever. pt's family members at bedside. Physical Exam Eyes: PERRL, conjunctivae normal, anicteric sclerae Neck: trachea midline, no thyromegaly Respiratory: Auscultation: lungs clear to auscultation bilaterally Cardiovascular: Rate/Rhythm: + irregularly irregular Gastrointestinal (Abdomen): soft, no distend. incision intact Neurologic: not respond Results & Data Vital Signs (Past 12 Hours) Vital Signs Temp Pulse Resp BP BP Pulse Ox O2 Del Method 09/13/23 08:17 36.8 C 122 H 27 H 146/93 H 93 Room Air 09/13/23 03:00 36.7 C 125 H 30 H 132/87 91 Room Air Laboratory Results Lab Results 08/26/23 08/26/23 08/26/23 Range/Units 17:27 17:38 17:47 WBC 17.19 H (4.8-10.8) K/ul RBC 3.31 L (4.70-6.10) M/uL Hgb 10.4 L (14.0-18.0) g/dl POC Hgb 10.9 L 11.6 L (14.0-18.0) g/dl Hct 31.4 L (42.0-52.0) % POC Hct 32 L 34 L (42-52) % MCV 94.9 (80.0-100.0) fL MCH 31.4 (25.0-34.0) pg MCHC 33.1 (32.0-36.0) g/dL RDW Std Deviation 46.5 H (36.4-46.3) fL RDW Coeff of Jesse 13.4 (11.5-14.5) % Plt Count 373 (130-400) K/uL MPV 9.7 (9.4-12.4) fL Immature Gran % (Auto) 1.2 % Neut % (Auto) 87.6 % Lymph % (Auto) 5.1 % Dupage % (Auto) 5.9 % Eos % (Auto) 0.0 % Baso % (Auto) 0.2 % Neut # (Auto) 15.06 H (1.40-6.50) K/uL Lymph # (Auto) 0.88 L (1.20-3.40) K/uL Dupage # (Auto) 1.01 H (0.11-0.59) K/uL Eos # (Auto) 0.00 (0.00-0.50) K/uL Baso # (Auto) 0.04 (0.00-0.20) K/uL Immature Gran # (Auto) 0.20 (0.01-0.20) K/uL Platelet Estimate (Normal) RBC Morphology Echinocytes PT 14.3 H (9.0-12.0) Seconds INR 1.3 H (0.9-1.1) APTT 27 (21-31) Seconds PTT Ratio 1.0 D-Dimer (0-500) ug/L FEU Sample Site POC pH 7.44 (7.35-7.45) POC pCO2 35 (35-46) mmHg POC pO2 135 H (80-95) mmHg POC HCO3 23 (19-24) lachelle/L POC Total CO2 24 26 (24-31) mmol/L POC Base Excess -1.0 (-9-1.8) lachelle/L ABG pH (7.35-7.45) ABG pH (Temp Correct) (7.35-7.45) ABG pCO2 (35-46) mmHg ABG pCO2 (Temp Corrct (35-46) mmHg ABG pO2 (80-95) mmHg POC ABG pO2 at Pt Temp ABG HCO3 (19-24) mmol/L POC ABG O2 Sat 99.0 H (90-95) % ABG O2 Saturation (90-95) % ABG Base Excess (-9-1.8) mEq/L Mikey Test (Pos) VBG pH (7.36-7.41) VBG pCO2 (38-50) mmHg VBG pO2 mmHg VBG HCO3 mmol/L VBG O2 Saturation % VBG Base Excess mEq/L Oxygen Given O2 Delivery Device POC O2 Rate POC FiO2 % Tidal Volume PEEP POC Sodium 140 140 (135-144) mmol/L Sodium 141 (136-145) mmol/L POC Potassium 4.1 4.4 (3.3-5.0) mmol/L Potassium 3.9 (3.5-5.1) mmol/L POC Chloride 100 L (101-112) mmol/L Chloride 102 (98-107) mmol/L Carbon Dioxide 23 (21-32) mmol/L Anion Gap 16 H (3-11) POC Anion Gap 19.0 (16-25) mmol/L POC BUN 50 H (7-18) mg/dl BUN 57 H (6-23) mg/dl Creatinine 2.43 H (0.6-1.4) mg/dl POC Creatinine 2.7 H (0.6-1.3) mg/dl Est Cr Clr Drug Dosing Not Reportable Est GFR ( Amer) 29.7 ml/min Est GFR (Non-Af Amer) 25.6 ml/min BUN/Creatinine Ratio 23.5 H (10-20) Glucose 137 H (70-99(Fasting)) mg/dl POC Glucose (70-99) mg/dl POC Glucose (other) 134 H (70-99) mg/dl Lactate 2.7 H* (0.4-2.0) mmol/L Calcium 9.4 (8.6-10.3) mg/dl POC Ioniz Calcium José Antonio 1.14 (1.12-1.32) mmol/l Phosphorus (2.5-4.9) mg/dl Magnesium 2.0 (1.7-2.4) mg/dl Iron (35-175) mcg/dl TIBC (250-450) mcg/dl Unsaturated IBC (155-355) mcg/dl Transferrin % Sat (20-50) % Ferritin (8-388) ng/ml Total Bilirubin 0.6 (0.2-1.0) mg/dl Direct Bilirubin 0.2 (0-0.2) mg/dl AST 25 (13-39) U/L ALT 37 (7-52) U/L Alkaline Phosphatase 281 H (34-104) U/L Ammonia (18-72) umol/L Troponin I High Sens 79.5 H* (0-20) pg/ml B-Natriuretic Peptide (0-100) pg/ml Total Protein 6.9 (6.0-8.3) gm/dl Albumin 3.7 (3.4-5.0) gm/dl Globulin (2.5-4.0) gm/dl Albumin/Globulin Ratio (0.9-2) Triglycerides (0-150) mg/dl Vitamin B1 (8-30) nmol/L Vitamin B12 (180-914) pg/ml 25-OH Vitamin D Total (30-100) ng/ml Folate (>5.38) ng/ml Procalcitonin 0.34 (0-0.5) ng/ml TSH (0.300-4.500) uIu/ml Free T4 (0.61-1.60) ng/dl Urine Color Urine Appearance (Clear) Urine pH (4.5-7.5) Ur Specific Pioneer (1.000-1.030) Urine Protein (Negative) Urine Glucose (UA) (Negative) Urine Ketones (Negative) Urine Blood (Negative) Urine Nitrite (Negative) Urine Bilirubin (Negative) Urine Urobilinogen (Negative) Ur Leukocyte Esterase (Negative) Urine WBC (Auto) Urine RBC (Auto) U Hyaline Cast (Auto) U Epithel Cells (Auto) Urine Bacteria (Auto) Ur Renal Epithelial Cell Urine Crystals Calcium Oxalate Crystal Uric Acid Crystals Triple Phos Crystals Other Crystals Amorphous Sediment Granular Casts Waxy Casts RBC Casts WBC Casts Pathogenic Casts Other Casts Urine Mucus Urine Other Urine Trichomonas Urine Yeast Urine Sperm Ur Oval Fat Bodies Ur Culture Indicated? Nasal Screen MRSA (PCR) (Negative) Random Vancomycin (10-20) mcg/ml Adenovirus (PCR) (NotDetected) B. pertussis DNA (PCR) (NotDetected) B.parapertussis DNA PCR (NotDetected) C. pneumoniae DNA (PCR) (NotDetected) Coronavirus OC43 (PCR) (NotDetected) Coronavirus HKU1 (PCR) (NotDetected) Coronavirus 229E (PCR) (NotDetected) SARS-CoV-2 (PCR) (NotDetected) Coronavirus NL63 (PCR) (NotDetected) Human Metapneumovir PCR (NotDetected) Influenza Type A (PCR) (NotDetected) Influenza Type B (PCR) (NotDetected) M. pneumoniae (PCR) (NotDetected) Parainfluenza 1 (PCR) (NotDetected) Parainfluenza 2 (PCR) (NotDetected) Parainfluenza 3 (PCR) (NotDetected) Parainfluenza 4 (PCR) (NotDetected) RSV (RT-PCR) (Neg) RSV (PCR) (NotDetected) Entero/Rhino (PCR) (NotDetected) Blood Type Blood Type Recheck Antibody Screen Crossmatch 08/26/23 08/26/23 08/26/23 Range/Units 18:26 19:39 19:40 WBC (4.8-10.8) K/ul RBC (4.70-6.10) M/uL Hgb (14.0-18.0) g/dl POC Hgb (14.0-18.0) g/dl Hct (42.0-52.0) % POC Hct (42-52) % MCV (80.0-100.0) fL MCH (25.0-34.0) pg MCHC (32.0-36.0) g/dL RDW Std Deviation (36.4-46.3) fL RDW Coeff of Jesse (11.5-14.5) % Plt Count (130-400) K/uL MPV (9.4-12.4) fL Immature Gran % (Auto) % Neut % (Auto) % Lymph % (Auto) % Dupage % (Auto) % Eos % (Auto) % Baso % (Auto) % Neut # (Auto) (1.40-6.50) K/uL Lymph # (Auto) (1.20-3.40) K/uL Dupage # (Auto) (0.11-0.59) K/uL Eos # (Auto) (0.00-0.50) K/uL Baso # (Auto) (0.00-0.20) K/uL Immature Gran # (Auto) (0.01-0.20) K/uL Platelet Estimate (Normal) RBC Morphology Echinocytes PT (9.0-12.0) Seconds INR (0.9-1.1) APTT (21-31) Seconds PTT Ratio D-Dimer (0-500) ug/L FEU Sample Site POC pH (7.35-7.45) POC pCO2 (35-46) mmHg POC pO2 (80-95) mmHg POC HCO3 (19-24) lachelle/L POC Total CO2 (24-31) mmol/L POC Base Excess (-9-1.8) lachelle/L ABG pH (7.35-7.45) ABG pH (Temp Correct) (7.35-7.45) ABG pCO2 (35-46) mmHg ABG pCO2 (Temp Corrct (35-46) mmHg ABG pO2 (80-95) mmHg POC ABG pO2 at Pt Temp ABG HCO3 (19-24) mmol/L POC ABG O2 Sat (90-95) % ABG O2 Saturation (90-95) % ABG Base Excess (-9-1.8) mEq/L Mikey Test (Pos) VBG pH (7.36-7.41) VBG pCO2 (38-50) mmHg VBG pO2 mmHg VBG HCO3 mmol/L VBG O2 Saturation % VBG Base Excess mEq/L Oxygen Given O2 Delivery Device POC O2 Rate POC FiO2 % Tidal Volume PEEP POC Sodium (135-144) mmol/L Sodium (136-145) mmol/L POC Potassium (3.3-5.0) mmol/L Potassium (3.5-5.1) mmol/L POC Chloride (101-112) mmol/L Chloride (98-107) mmol/L Carbon Dioxide (21-32) mmol/L Anion Gap (3-11) POC Anion Gap (16-25) mmol/L POC BUN (7-18) mg/dl BUN (6-23) mg/dl Creatinine (0.6-1.4) mg/dl POC Creatinine (0.6-1.3) mg/dl Est Cr Clr Drug Dosing Est GFR ( Amer) ml/min Est GFR (Non-Af Amer) ml/min BUN/Creatinine Ratio (10-20) Glucose (70-99(Fasting)) mg/dl POC Glucose (70-99) mg/dl POC Glucose (other) (70-99) mg/dl Lactate 2.9 H* (0.4-2.0) mmol/L Calcium (8.6-10.3) mg/dl POC Ioniz Calcium José Antonio (1.12-1.32) mmol/l Phosphorus (2.5-4.9) mg/dl Magnesium (1.7-2.4) mg/dl Iron (35-175) mcg/dl TIBC (250-450) mcg/dl Unsaturated IBC (155-355) mcg/dl Transferrin % Sat (20-50) % Ferritin (8-388) ng/ml Total Bilirubin (0.2-1.0) mg/dl Direct Bilirubin (0-0.2) mg/dl AST (13-39) U/L ALT (7-52) U/L Alkaline Phosphatase (34-104) U/L Ammonia (18-72) umol/L Troponin I High Sens 75.8 H* (0-20) pg/ml B-Natriuretic Peptide (0-100) pg/ml Total Protein (6.0-8.3) gm/dl Albumin (3.4-5.0) gm/dl Globulin (2.5-4.0) gm/dl Albumin/Globulin Ratio (0.9-2) Triglycerides (0-150) mg/dl Vitamin B1 (8-30) nmol/L Vitamin B12 (180-914) pg/ml 25-OH Vitamin D Total (30-100) ng/ml Folate (>5.38) ng/ml Procalcitonin (0-0.5) ng/ml TSH (0.300-4.500) uIu/ml Free T4 (0.61-1.60) ng/dl Urine Color Urine Appearance (Clear) Urine pH (4.5-7.5) Ur Specific Pioneer (1.000-1.030) Urine Protein (Negative) Urine Glucose (UA) (Negative) Urine Ketones (Negative) Urine Blood (Negative) Urine Nitrite (Negative) Urine Bilirubin (Negative) Urine Urobilinogen (Negative) Ur Leukocyte Esterase (Negative) Urine WBC (Auto) Urine RBC (Auto) U Hyaline Cast (Auto) U Epithel Cells (Auto) Urine Bacteria (Auto) Ur Renal Epithelial Cell Urine Crystals Calcium Oxalate Crystal Uric Acid Crystals Triple Phos Crystals Other Crystals Amorphous Sediment Granular Casts Waxy Casts RBC Casts WBC Casts Pathogenic Casts Other Casts Urine Mucus Urine Other Urine Trichomonas Urine Yeast Urine Sperm Ur Oval Fat Bodies Ur Culture Indicated? Nasal Screen MRSA (PCR) (Negative) Random Vancomycin (10-20) mcg/ml Adenovirus (PCR) Not Detected (NotDetected) B. pertussis DNA (PCR) Not Detected (NotDetected) B.parapertussis DNA PCR Not Detected (NotDetected) C. pneumoniae DNA (PCR) Not Detected (NotDetected) Coronavirus OC43 (PCR) Not Detected (NotDetected) Coronavirus HKU1 (PCR) Not Detected (NotDetected) Coronavirus 229E (PCR) Not Detected (NotDetected) SARS-CoV-2 (PCR) Not Detected (NotDetected) Coronavirus NL63 (PCR) Not Detected (NotDetected) Human Metapneumovir PCR Not Detected (NotDetected) Influenza Type A (PCR) Not Detected (NotDetected) Influenza Type B (PCR) Not Detected (NotDetected) M. pneumoniae (PCR) Not Detected (NotDetected) Parainfluenza 1 (PCR) Not Detected (NotDetected) Parainfluenza 2 (PCR) Not Detected (NotDetected) Parainfluenza 3 (PCR) Not Detected (NotDetected) Parainfluenza 4 (PCR) Not Detected (NotDetected) RSV (RT-PCR) (Neg) RSV (PCR) Not Detected (NotDetected) Entero/Rhino (PCR) Not Detected (NotDetected) Blood Type Blood Type Recheck Antibody Screen Crossmatch 08/26/23 08/26/23 08/27/23 Range/Units 21:22 21:24 00:07 WBC (4.8-10.8) K/ul RBC (4.70-6.10) M/uL Hgb (14.0-18.0) g/dl POC Hgb (14.0-18.0) g/dl Hct (42.0-52.0) % POC Hct (42-52) % MCV (80.0-100.0) fL MCH (25.0-34.0) pg MCHC (32.0-36.0) g/dL RDW Std Deviation (36.4-46.3) fL RDW Coeff of Jesse (11.5-14.5) % Plt Count (130-400) K/uL MPV (9.4-12.4) fL Immature Gran % (Auto) % Neut % (Auto) % Lymph % (Auto) % Dupage % (Auto) % Eos % (Auto) % Baso % (Auto) % Neut # (Auto) (1.40-6.50) K/uL Lymph # (Auto) (1.20-3.40) K/uL Dupage # (Auto) (0.11-0.59) K/uL Eos # (Auto) (0.00-0.50) K/uL Baso # (Auto) (0.00-0.20) K/uL Immature Gran # (Auto) (0.01-0.20) K/uL Platelet Estimate (Normal) RBC Morphology Echinocytes PT (9.0-12.0) Seconds INR (0.9-1.1) APTT (21-31) Seconds PTT Ratio D-Dimer (0-500) ug/L FEU Sample Site POC pH (7.35-7.45) POC pCO2 (35-46) mmHg POC pO2 (80-95) mmHg POC HCO3 (19-24) lachelle/L POC Total CO2 (24-31) mmol/L POC Base Excess (-9-1.8) lachelle/L ABG pH 7.41 (7.35-7.45) ABG pH (Temp Correct) (7.35-7.45) ABG pCO2 37 (35-46) mmHg ABG pCO2 (Temp Corrct (35-46) mmHg ABG pO2 124 H (80-95) mmHg POC ABG pO2 at Pt Temp ABG HCO3 24 (19-24) mmol/L POC ABG O2 Sat (90-95) % ABG O2 Saturation 98.3 H (90-95) % ABG Base Excess -0.8 (-9-1.8) mEq/L Mikey Test Pos (Pos) VBG pH (7.36-7.41) VBG pCO2 (38-50) mmHg VBG pO2 mmHg VBG HCO3 mmol/L VBG O2 Saturation % VBG Base Excess mEq/L Oxygen Given 55% O2 Delivery Device POC O2 Rate POC FiO2 % Tidal Volume PEEP POC Sodium (135-144) mmol/L Sodium (136-145) mmol/L POC Potassium (3.3-5.0) mmol/L Potassium (3.5-5.1) mmol/L POC Chloride (101-112) mmol/L Chloride (98-107) mmol/L Carbon Dioxide (21-32) mmol/L Anion Gap (3-11) POC Anion Gap (16-25) mmol/L POC BUN (7-18) mg/dl BUN (6-23) mg/dl Creatinine (0.6-1.4) mg/dl POC Creatinine (0.6-1.3) mg/dl Est Cr Clr Drug Dosing Est GFR ( Amer) ml/min Est GFR (Non-Af Amer) ml/min BUN/Creatinine Ratio (10-20) Glucose (70-99(Fasting)) mg/dl POC Glucose (70-99) mg/dl POC Glucose (other) (70-99) mg/dl Lactate 1.1 (0.4-2.0) mmol/L Calcium (8.6-10.3) mg/dl POC Ioniz Calcium José Antonio (1.12-1.32) mmol/l Phosphorus (2.5-4.9) mg/dl Magnesium (1.7-2.4) mg/dl Iron (35-175) mcg/dl TIBC (250-450) mcg/dl Unsaturated IBC (155-355) mcg/dl Transferrin % Sat (20-50) % Ferritin (8-388) ng/ml Total Bilirubin (0.2-1.0) mg/dl Direct Bilirubin (0-0.2) mg/dl AST (13-39) U/L ALT (7-52) U/L Alkaline Phosphatase (34-104) U/L Ammonia (18-72) umol/L Troponin I High Sens (0-20) pg/ml B-Natriuretic Peptide (0-100) pg/ml Total Protein (6.0-8.3) gm/dl Albumin (3.4-5.0) gm/dl Globulin (2.5-4.0) gm/dl Albumin/Globulin Ratio (0.9-2) Triglycerides (0-150) mg/dl Vitamin B1 (8-30) nmol/L Vitamin B12 (180-914) pg/ml 25-OH Vitamin D Total (30-100) ng/ml Folate (>5.38) ng/ml Procalcitonin (0-0.5) ng/ml TSH (0.300-4.500) uIu/ml Free T4 (0.61-1.60) ng/dl Urine Color Yellow Urine Appearance Cloudy A (Clear) Urine pH 5.5 (4.5-7.5) Ur Specific Pioneer >= 1.030 (1.000-1.030) Urine Protein 3+ H (Negative) Urine Glucose (UA) Negative (Negative) Urine Ketones Negative (Negative) Urine Blood 3+ H (Negative) Urine Nitrite Negative (Negative) Urine Bilirubin 1+ H (Negative) Urine Urobilinogen Negative (Negative) Ur Leukocyte Esterase Trace H (Negative) Urine WBC (Auto) Cancelled Urine RBC (Auto) Cancelled U Hyaline Cast (Auto) Cancelled U Epithel Cells (Auto) Cancelled Urine Bacteria (Auto) Cancelled Ur Renal Epithelial Cell Cancelled Urine Crystals Cancelled Calcium Oxalate Crystal Cancelled Uric Acid Crystals Cancelled Triple Phos Crystals Cancelled Other Crystals Cancelled Amorphous Sediment Cancelled Granular Casts Cancelled Waxy Casts Cancelled RBC Casts Cancelled WBC Casts Cancelled Pathogenic Casts Cancelled Other Casts Cancelled Urine Mucus Cancelled Urine Other Cancelled Urine Trichomonas Cancelled Urine Yeast Cancelled Urine Sperm Cancelled Ur Oval Fat Bodies Cancelled Ur Culture Indicated? Cancelled Nasal Screen MRSA (PCR) Negative (Negative) Random Vancomycin (10-20) mcg/ml Adenovirus (PCR) (NotDetected) B. pertussis DNA (PCR) (NotDetected) B.parapertussis DNA PCR (NotDetected) C. pneumoniae DNA (PCR) (NotDetected) Coronavirus OC43 (PCR) (NotDetected) Coronavirus HKU1 (PCR) (NotDetected) Coronavirus 229E (PCR) (NotDetected) SARS-CoV-2 (PCR) (NotDetected) Coronavirus NL63 (PCR) (NotDetected) Human Metapneumovir PCR (NotDetected) Influenza Type A (PCR) (NotDetected) Influenza Type B (PCR) (NotDetected) M. pneumoniae (PCR) (NotDetected) Parainfluenza 1 (PCR) (NotDetected) Parainfluenza 2 (PCR) (NotDetected) Parainfluenza 3 (PCR) (NotDetected) Parainfluenza 4 (PCR) (NotDetected) RSV (RT-PCR) (Neg) RSV (PCR) (NotDetected) Entero/Rhino (PCR) (NotDetected) Blood Type Blood Type Recheck Antibody Screen Crossmatch 08/27/23 08/27/23 08/27/23 Range/Units 01:27 06:04 06:08 WBC 18.54 H (4.8-10.8) K/ul RBC 2.88 L (4.70-6.10) M/uL Hgb 9.0 L (14.0-18.0) g/dl POC Hgb (14.0-18.0) g/dl Hct 27.4 L (42.0-52.0) % POC Hct (42-52) % MCV 95.1 (80.0-100.0) fL MCH 31.3 (25.0-34.0) pg MCHC 32.8 (32.0-36.0) g/dL RDW Std Deviation 46.9 H (36.4-46.3) fL RDW Coeff of Jesse 13.4 (11.5-14.5) % Plt Count 267 (130-400) K/uL MPV 9.5 (9.4-12.4) fL Immature Gran % (Auto) 0.8 % Neut % (Auto) 94.0 % Lymph % (Auto) 2.5 % Dupage % (Auto) 2.5 % Eos % (Auto) 0.0 % Baso % (Auto) 0.2 % Neut # (Auto) 17.43 H (1.40-6.50) K/uL Lymph # (Auto) 0.47 L (1.20-3.40) K/uL Dupage # (Auto) 0.47 (0.11-0.59) K/uL Eos # (Auto) 0.00 (0.00-0.50) K/uL Baso # (Auto) 0.03 (0.00-0.20) K/uL Immature Gran # (Auto) 0.14 (0.01-0.20) K/uL Platelet Estimate (Normal) RBC Morphology Echinocytes PT (9.0-12.0) Seconds INR (0.9-1.1) APTT (21-31) Seconds PTT Ratio D-Dimer (0-500) ug/L FEU Sample Site POC pH (7.35-7.45) POC pCO2 (35-46) mmHg POC pO2 (80-95) mmHg POC HCO3 (19-24) lachelle/L POC Total CO2 (24-31) mmol/L POC Base Excess (-9-1.8) lachelle/L ABG pH 7.42 7.44 (7.35-7.45) ABG pH (Temp Correct) (7.35-7.45) ABG pCO2 36 32 L (35-46) mmHg ABG pCO2 (Temp Corrct (35-46) mmHg ABG pO2 81 86 (80-95) mmHg POC ABG pO2 at Pt Temp ABG HCO3 23 22 (19-24) mmol/L POC ABG O2 Sat (90-95) % ABG O2 Saturation 96.2 H 97.2 H (90-95) % ABG Base Excess -0.7 -1.6 (-9-1.8) mEq/L Mikey Test Pos Pos (Pos) VBG pH (7.36-7.41) VBG pCO2 (38-50) mmHg VBG pO2 mmHg VBG HCO3 mmol/L VBG O2 Saturation % VBG Base Excess mEq/L Oxygen Given 4L 5L O2 Delivery Device POC O2 Rate POC FiO2 % Tidal Volume PEEP POC Sodium (135-144) mmol/L Sodium 142 (136-145) mmol/L POC Potassium (3.3-5.0) mmol/L Potassium 3.8 (3.5-5.1) mmol/L POC Chloride (101-112) mmol/L Chloride 108 H (98-107) mmol/L Carbon Dioxide 22 (21-32) mmol/L Anion Gap 12 H (3-11) POC Anion Gap (16-25) mmol/L POC BUN (7-18) mg/dl BUN 68 H (6-23) mg/dl Creatinine 2.75 H D (0.6-1.4) mg/dl POC Creatinine (0.6-1.3) mg/dl Est Cr Clr Drug Dosing 21.7 Est GFR ( Amer) 25.5 ml/min Est GFR (Non-Af Amer) 22.0 ml/min BUN/Creatinine Ratio 24.7 H (10-20) Glucose 145 H (70-99(Fasting)) mg/dl POC Glucose (70-99) mg/dl POC Glucose (other) (70-99) mg/dl Lactate (0.4-2.0) mmol/L Calcium 8.5 L (8.6-10.3) mg/dl POC Ioniz Calcium José Antonio (1.12-1.32) mmol/l Phosphorus (2.5-4.9) mg/dl Magnesium 1.7 (1.7-2.4) mg/dl Iron (35-175) mcg/dl TIBC (250-450) mcg/dl Unsaturated IBC (155-355) mcg/dl Transferrin % Sat (20-50) % Ferritin (8-388) ng/ml Total Bilirubin (0.2-1.0) mg/dl Direct Bilirubin (0-0.2) mg/dl AST (13-39) U/L ALT (7-52) U/L Alkaline Phosphatase (34-104) U/L Ammonia (18-72) umol/L Troponin I High Sens 76.2 H* (0-20) pg/ml B-Natriuretic Peptide (0-100) pg/ml Total Protein (6.0-8.3) gm/dl Albumin (3.4-5.0) gm/dl Globulin (2.5-4.0) gm/dl Albumin/Globulin Ratio (0.9-2) Triglycerides (0-150) mg/dl Vitamin B1 (8-30) nmol/L Vitamin B12 (180-914) pg/ml 25-OH Vitamin D Total (30-100) ng/ml Folate (>5.38) ng/ml Procalcitonin (0-0.5) ng/ml TSH (0.300-4.500) uIu/ml Free T4 (0.61-1.60) ng/dl Urine Color Urine Appearance (Clear) Urine pH (4.5-7.5) Ur Specific Pioneer (1.000-1.030) Urine Protein (Negative) Urine Glucose (UA) (Negative) Urine Ketones (Negative) Urine Blood (Negative) Urine Nitrite (Negative) Urine Bilirubin (Negative) Urine Urobilinogen (Negative) Ur Leukocyte Esterase (Negative) Urine WBC (Auto) Urine RBC (Auto) U Hyaline Cast (Auto) U Epithel Cells (Auto) Urine Bacteria (Auto) Ur Renal Epithelial Cell Urine Crystals Calcium Oxalate Crystal Uric Acid Crystals Triple Phos Crystals Other Crystals Amorphous Sediment Granular Casts Waxy Casts RBC Casts WBC Casts Pathogenic Casts Other Casts Urine Mucus Urine Other Urine Trichomonas Urine Yeast Urine Sperm Ur Oval Fat Bodies Ur Culture Indicated? Nasal Screen MRSA (PCR) (Negative) Random Vancomycin (10-20) mcg/ml Adenovirus (PCR) (NotDetected) B. pertussis DNA (PCR) (NotDetected) B.parapertussis DNA PCR (NotDetected) C. pneumoniae DNA (PCR) (NotDetected) Coronavirus OC43 (PCR) (NotDetected) Coronavirus HKU1 (PCR) (NotDetected) Coronavirus 229E (PCR) (NotDetected) SARS-CoV-2 (PCR) (NotDetected) Coronavirus NL63 (PCR) (NotDetected) Human Metapneumovir PCR (NotDetected) Influenza Type A (PCR) (NotDetected) Influenza Type B (PCR) (NotDetected) M. pneumoniae (PCR) (NotDetected) Parainfluenza 1 (PCR) (NotDetected) Parainfluenza 2 (PCR) (NotDetected) Parainfluenza 3 (PCR) (NotDetected) Parainfluenza 4 (PCR) (NotDetected) RSV (RT-PCR) (Neg) RSV (PCR) (NotDetected) Entero/Rhino (PCR) (NotDetected) Blood Type Blood Type Recheck Antibody Screen Crossmatch 08/28/23 08/29/23 08/30/23 Range/Units 07:17 05:54 05:39 WBC 14.95 H 13.31 H 16.01 H (4.8-10.8) K/ul RBC 3.01 L 3.03 L 3.31 L (4.70-6.10) M/uL Hgb 9.3 L 9.5 L 10.3 L (14.0-18.0) g/dl POC Hgb (14.0-18.0) g/dl Hct 29.4 L 30.1 L 31.7 L (42.0-52.0) % POC Hct (42-52) % MCV 97.7 99.3 95.8 (80.0-100.0) fL MCH 30.9 31.4 31.1 (25.0-34.0) pg MCHC 31.6 L 31.6 L 32.5 (32.0-36.0) g/dL RDW Std Deviation 48.7 H 48.3 H 47.5 H (36.4-46.3) fL RDW Coeff of Jesse 13.6 13.6 13.6 (11.5-14.5) % Plt Count 252 242 260 (130-400) K/uL MPV 9.3 L 9.6 9.3 L (9.4-12.4) fL Immature Gran % (Auto) 0.7 0.5 0.7 % Neut % (Auto) 93.6 91.4 87.3 % Lymph % (Auto) 2.3 3.6 5.2 % Dupage % (Auto) 3.3 4.4 6.5 % Eos % (Auto) 0.0 0.0 0.2 % Baso % (Auto) 0.1 0.1 0.1 % Neut # (Auto) 14.00 H 12.17 H 13.95 H (1.40-6.50) K/uL Lymph # (Auto) 0.34 L 0.48 L 0.84 L (1.20-3.40) K/uL Dupage # (Auto) 0.49 0.59 1.04 H (0.11-0.59) K/uL Eos # (Auto) 0.00 0.00 0.04 (0.00-0.50) K/uL Baso # (Auto) 0.02 0.01 0.02 (0.00-0.20) K/uL Immature Gran # (Auto) 0.10 0.06 0.12 (0.01-0.20) K/uL Platelet Estimate (Normal) RBC Morphology Unremarkable Unremarkable Echinocytes PT (9.0-12.0) Seconds INR (0.9-1.1) APTT (21-31) Seconds PTT Ratio D-Dimer (0-500) ug/L FEU Sample Site POC pH (7.35-7.45) POC pCO2 (35-46) mmHg POC pO2 (80-95) mmHg POC HCO3 (19-24) lachelle/L POC Total CO2 (24-31) mmol/L POC Base Excess (-9-1.8) lachelle/L ABG pH (7.35-7.45) ABG pH (Temp Correct) (7.35-7.45) ABG pCO2 (35-46) mmHg ABG pCO2 (Temp Corrct (35-46) mmHg ABG pO2 (80-95) mmHg POC ABG pO2 at Pt Temp ABG HCO3 (19-24) mmol/L POC ABG O2 Sat (90-95) % ABG O2 Saturation (90-95) % ABG Base Excess (-9-1.8) mEq/L Mikey Test (Pos) VBG pH (7.36-7.41) VBG pCO2 (38-50) mmHg VBG pO2 mmHg VBG HCO3 mmol/L VBG O2 Saturation % VBG Base Excess mEq/L Oxygen Given O2 Delivery Device POC O2 Rate POC FiO2 % Tidal Volume PEEP POC Sodium (135-144) mmol/L Sodium 141 141 140 (136-145) mmol/L POC Potassium (3.3-5.0) mmol/L Potassium 3.4 L 4.1 D 4.5 (3.5-5.1) mmol/L POC Chloride (101-112) mmol/L Chloride 107 108 H 108 H (98-107) mmol/L Carbon Dioxide 25 27 23 (21-32) mmol/L Anion Gap 9 6 9 (3-11) POC Anion Gap (16-25) mmol/L POC BUN (7-18) mg/dl BUN 53 H 40 H 36 H (6-23) mg/dl Creatinine 2.02 H D 1.67 H D 1.98 H D (0.6-1.4) mg/dl POC Creatinine (0.6-1.3) mg/dl Est Cr Clr Drug Dosing 30.4 36.5 30.8 Est GFR ( Amer) 37.1 46.7 38.0 ml/min Est GFR (Non-Af Amer) 32.0 40.3 32.8 ml/min BUN/Creatinine Ratio 26.2 H 24.0 H 18.2 (10-20) Glucose 126 H 102 H 95 (70-99(Fasting)) mg/dl POC Glucose (70-99) mg/dl POC Glucose (other) (70-99) mg/dl Lactate (0.4-2.0) mmol/L Calcium 9.1 9.0 9.2 (8.6-10.3) mg/dl POC Ioniz Calcium José Antonio (1.12-1.32) mmol/l Phosphorus (2.5-4.9) mg/dl Magnesium 1.7 1.7 (1.7-2.4) mg/dl Iron 31 L (35-175) mcg/dl TIBC 176 L (250-450) mcg/dl Unsaturated IBC 145 L (155-355) mcg/dl Transferrin % Sat 18 L (20-50) % Ferritin 197.8 (8-388) ng/ml Total Bilirubin (0.2-1.0) mg/dl Direct Bilirubin (0-0.2) mg/dl AST (13-39) U/L ALT (7-52) U/L Alkaline Phosphatase (34-104) U/L Ammonia (18-72) umol/L Troponin I High Sens (0-20) pg/ml B-Natriuretic Peptide (0-100) pg/ml Total Protein (6.0-8.3) gm/dl Albumin (3.4-5.0) gm/dl Globulin (2.5-4.0) gm/dl Albumin/Globulin Ratio (0.9-2) Triglycerides (0-150) mg/dl Vitamin B1 582 H (8-30) nmol/L Vitamin B12 851 (180-914) pg/ml 25-OH Vitamin D Total (30-100) ng/ml Folate > 22.30 (>5.38) ng/ml Procalcitonin (0-0.5) ng/ml TSH (0.300-4.500) uIu/ml Free T4 (0.61-1.60) ng/dl Urine Color Urine Appearance (Clear) Urine pH (4.5-7.5) Ur Specific Pioneer (1.000-1.030) Urine Protein (Negative) Urine Glucose (UA) (Negative) Urine Ketones (Negative) Urine Blood (Negative) Urine Nitrite (Negative) Urine Bilirubin (Negative) Urine Urobilinogen (Negative) Ur Leukocyte Esterase (Negative) Urine WBC (Auto) Urine RBC (Auto) U Hyaline Cast (Auto) U Epithel Cells (Auto) Urine Bacteria (Auto) Ur Renal Epithelial Cell Urine Crystals Calcium Oxalate Crystal Uric Acid Crystals Triple Phos Crystals Other Crystals Amorphous Sediment Granular Casts Waxy Casts RBC Casts WBC Casts Pathogenic Casts Other Casts Urine Mucus Urine Other Urine Trichomonas Urine Yeast Urine Sperm Ur Oval Fat Bodies Ur Culture Indicated? Nasal Screen MRSA (PCR) (Negative) Random Vancomycin (10-20) mcg/ml Adenovirus (PCR) (NotDetected) B. pertussis DNA (PCR) (NotDetected) B.parapertussis DNA PCR (NotDetected) C. pneumoniae DNA (PCR) (NotDetected) Coronavirus OC43 (PCR) (NotDetected) Coronavirus HKU1 (PCR) (NotDetected) Coronavirus 229E (PCR) (NotDetected) SARS-CoV-2 (PCR) (NotDetected) Coronavirus NL63 (PCR) (NotDetected) Human Metapneumovir PCR (NotDetected) Influenza Type A (PCR) (NotDetected) Influenza Type B (PCR) (NotDetected) M. pneumoniae (PCR) (NotDetected) Parainfluenza 1 (PCR) (NotDetected) Parainfluenza 2 (PCR) (NotDetected) Parainfluenza 3 (PCR) (NotDetected) Parainfluenza 4 (PCR) (NotDetected) RSV (RT-PCR) (Neg) RSV (PCR) (NotDetected) Entero/Rhino (PCR) (NotDetected) Blood Type Blood Type Recheck B Positive Antibody Screen Crossmatch 08/31/23 08/31/23 08/31/23 Range/Units 04:27 06:21 06:29 WBC 14.19 H (4.8-10.8) K/ul RBC 3.72 L (4.70-6.10) M/uL Hgb 11.6 L (14.0-18.0) g/dl POC Hgb (14.0-18.0) g/dl Hct 35.9 L (42.0-52.0) % POC Hct (42-52) % MCV 96.5 (80.0-100.0) fL MCH 31.2 (25.0-34.0) pg MCHC 32.3 (32.0-36.0) g/dL RDW Std Deviation 48.5 H (36.4-46.3) fL RDW Coeff of Jesse 13.7 (11.5-14.5) % Plt Count 397 D (130-400) K/uL MPV 9.3 L (9.4-12.4) fL Immature Gran % (Auto) % Neut % (Auto) % Lymph % (Auto) % Dupage % (Auto) % Eos % (Auto) % Baso % (Auto) % Neut # (Auto) (1.40-6.50) K/uL Lymph # (Auto) (1.20-3.40) K/uL Dupage # (Auto) (0.11-0.59) K/uL Eos # (Auto) (0.00-0.50) K/uL Baso # (Auto) (0.00-0.20) K/uL Immature Gran # (Auto) (0.01-0.20) K/uL Platelet Estimate (Normal) RBC Morphology Echinocytes PT (9.0-12.0) Seconds INR (0.9-1.1) APTT (21-31) Seconds PTT Ratio D-Dimer 1650 H* (0-500) ug/L FEU Sample Site POC pH (7.35-7.45) POC pCO2 (35-46) mmHg POC pO2 (80-95) mmHg POC HCO3 (19-24) lachelle/L POC Total CO2 (24-31) mmol/L POC Base Excess (-9-1.8) lachelle/L ABG pH (7.35-7.45) ABG pH (Temp Correct) (7.35-7.45) ABG pCO2 (35-46) mmHg ABG pCO2 (Temp Corrct (35-46) mmHg ABG pO2 (80-95) mmHg POC ABG pO2 at Pt Temp ABG HCO3 (19-24) mmol/L POC ABG O2 Sat (90-95) % ABG O2 Saturation (90-95) % ABG Base Excess (-9-1.8) mEq/L Mikey Test (Pos) VBG pH (7.36-7.41) VBG pCO2 (38-50) mmHg VBG pO2 mmHg VBG HCO3 mmol/L VBG O2 Saturation % VBG Base Excess mEq/L Oxygen Given O2 Delivery Device POC O2 Rate POC FiO2 % Tidal Volume PEEP POC Sodium (135-144) mmol/L Sodium 142 (136-145) mmol/L POC Potassium (3.3-5.0) mmol/L Potassium 4.4 (3.5-5.1) mmol/L POC Chloride (101-112) mmol/L Chloride 111 H (98-107) mmol/L Carbon Dioxide 22 (21-32) mmol/L Anion Gap 9 (3-11) POC Anion Gap (16-25) mmol/L POC BUN (7-18) mg/dl BUN 35 H (6-23) mg/dl Creatinine 2.18 H (0.6-1.4) mg/dl POC Creatinine (0.6-1.3) mg/dl Est Cr Clr Drug Dosing 28.0 Est GFR ( Amer) 33.8 ml/min Est GFR (Non-Af Amer) 29.2 ml/min BUN/Creatinine Ratio 16.1 (10-20) Glucose 76 (70-99(Fasting)) mg/dl POC Glucose (70-99) mg/dl POC Glucose (other) (70-99) mg/dl Lactate 2.6 H* 2.7 H* (0.4-2.0) mmol/L Calcium 9.3 (8.6-10.3) mg/dl POC Ioniz Calcium José Antonio (1.12-1.32) mmol/l Phosphorus (2.5-4.9) mg/dl Magnesium (1.7-2.4) mg/dl Iron (35-175) mcg/dl TIBC (250-450) mcg/dl Unsaturated IBC (155-355) mcg/dl Transferrin % Sat (20-50) % Ferritin (8-388) ng/ml Total Bilirubin (0.2-1.0) mg/dl Direct Bilirubin (0-0.2) mg/dl AST (13-39) U/L ALT (7-52) U/L Alkaline Phosphatase (34-104) U/L Ammonia (18-72) umol/L Troponin I High Sens (0-20) pg/ml B-Natriuretic Peptide (0-100) pg/ml Total Protein (6.0-8.3) gm/dl Albumin (3.4-5.0) gm/dl Globulin (2.5-4.0) gm/dl Albumin/Globulin Ratio (0.9-2) Triglycerides (0-150) mg/dl Vitamin B1 (8-30) nmol/L Vitamin B12 (180-914) pg/ml 25-OH Vitamin D Total (30-100) ng/ml Folate (>5.38) ng/ml Procalcitonin 0.62 H (0-0.5) ng/ml TSH (0.300-4.500) uIu/ml Free T4 (0.61-1.60) ng/dl Urine Color Urine Appearance (Clear) Urine pH (4.5-7.5) Ur Specific Pioneer (1.000-1.030) Urine Protein (Negative) Urine Glucose (UA) (Negative) Urine Ketones (Negative) Urine Blood (Negative) Urine Nitrite (Negative) Urine Bilirubin (Negative) Urine Urobilinogen (Negative) Ur Leukocyte Esterase (Negative) Urine WBC (Auto) Urine RBC (Auto) U Hyaline Cast (Auto) U Epithel Cells (Auto) Urine Bacteria (Auto) Ur Renal Epithelial Cell Urine Crystals Calcium Oxalate Crystal Uric Acid Crystals Triple Phos Crystals Other Crystals Amorphous Sediment Granular Casts Waxy Casts RBC Casts WBC Casts Pathogenic Casts Other Casts Urine Mucus Urine Other Urine Trichomonas Urine Yeast Urine Sperm Ur Oval Fat Bodies Ur Culture Indicated? Nasal Screen MRSA (PCR) (Negative) Random Vancomycin (10-20) mcg/ml Adenovirus (PCR) (NotDetected) B. pertussis DNA (PCR) (NotDetected) B.parapertussis DNA PCR (NotDetected) C. pneumoniae DNA (PCR) (NotDetected) Coronavirus OC43 (PCR) (NotDetected) Coronavirus HKU1 (PCR) (NotDetected) Coronavirus 229E (PCR) (NotDetected) SARS-CoV-2 (PCR) (NotDetected) Coronavirus NL63 (PCR) (NotDetected) Human Metapneumovir PCR (NotDetected) Influenza Type A (PCR) (NotDetected) Influenza Type B (PCR) (NotDetected) M. pneumoniae (PCR) (NotDetected) Parainfluenza 1 (PCR) (NotDetected) Parainfluenza 2 (PCR) (NotDetected) Parainfluenza 3 (PCR) (NotDetected) Parainfluenza 4 (PCR) (NotDetected) RSV (RT-PCR) (Neg) RSV (PCR) (NotDetected) Entero/Rhino (PCR) (NotDetected) Blood Type B Positive Blood Type Recheck Antibody Screen NEGATIVE Crossmatch See Detail 08/31/23 08/31/23 08/31/23 Range/Units 07:54 10:30 17:13 WBC (4.8-10.8) K/ul RBC (4.70-6.10) M/uL Hgb (14.0-18.0) g/dl POC Hgb (14.0-18.0) g/dl Hct (42.0-52.0) % POC Hct (42-52) % MCV (80.0-100.0) fL MCH (25.0-34.0) pg MCHC (32.0-36.0) g/dL RDW Std Deviation (36.4-46.3) fL RDW Coeff of Jesse (11.5-14.5) % Plt Count (130-400) K/uL MPV (9.4-12.4) fL Immature Gran % (Auto) % Neut % (Auto) % Lymph % (Auto) % Dupage % (Auto) % Eos % (Auto) % Baso % (Auto) % Neut # (Auto) (1.40-6.50) K/uL Lymph # (Auto) (1.20-3.40) K/uL Dupage # (Auto) (0.11-0.59) K/uL Eos # (Auto) (0.00-0.50) K/uL Baso # (Auto) (0.00-0.20) K/uL Immature Gran # (Auto) (0.01-0.20) K/uL Platelet Estimate (Normal) RBC Morphology Echinocytes PT (9.0-12.0) Seconds INR (0.9-1.1) APTT (21-31) Seconds PTT Ratio D-Dimer (0-500) ug/L FEU Sample Site POC pH (7.35-7.45) POC pCO2 (35-46) mmHg POC pO2 (80-95) mmHg POC HCO3 (19-24) lachelle/L POC Total CO2 (24-31) mmol/L POC Base Excess (-9-1.8) lachelle/L ABG pH (7.35-7.45) ABG pH (Temp Correct) (7.35-7.45) ABG pCO2 (35-46) mmHg ABG pCO2 (Temp Corrct (35-46) mmHg ABG pO2 (80-95) mmHg POC ABG pO2 at Pt Temp ABG HCO3 (19-24) mmol/L POC ABG O2 Sat (90-95) % ABG O2 Saturation (90-95) % ABG Base Excess (-9-1.8) mEq/L Mikey Test (Pos) VBG pH (7.36-7.41) VBG pCO2 (38-50) mmHg VBG pO2 mmHg VBG HCO3 mmol/L VBG O2 Saturation % VBG Base Excess mEq/L Oxygen Given O2 Delivery Device POC O2 Rate POC FiO2 % Tidal Volume PEEP POC Sodium (135-144) mmol/L Sodium (136-145) mmol/L POC Potassium (3.3-5.0) mmol/L Potassium (3.5-5.1) mmol/L POC Chloride (101-112) mmol/L Chloride (98-107) mmol/L Carbon Dioxide (21-32) mmol/L Anion Gap (3-11) POC Anion Gap (16-25) mmol/L POC BUN (7-18) mg/dl BUN (6-23) mg/dl Creatinine (0.6-1.4) mg/dl POC Creatinine (0.6-1.3) mg/dl Est Cr Clr Drug Dosing Est GFR ( Amer) ml/min Est GFR (Non-Af Amer) ml/min BUN/Creatinine Ratio (10-20) Glucose (70-99(Fasting)) mg/dl POC Glucose 90 82 126 H (70-99) mg/dl POC Glucose (other) (70-99) mg/dl Lactate (0.4-2.0) mmol/L Calcium (8.6-10.3) mg/dl POC Ioniz Calcium José Antonio (1.12-1.32) mmol/l Phosphorus (2.5-4.9) mg/dl Magnesium (1.7-2.4) mg/dl Iron (35-175) mcg/dl TIBC (250-450) mcg/dl Unsaturated IBC (155-355) mcg/dl Transferrin % Sat (20-50) % Ferritin (8-388) ng/ml Total Bilirubin (0.2-1.0) mg/dl Direct Bilirubin (0-0.2) mg/dl AST (13-39) U/L ALT (7-52) U/L Alkaline Phosphatase (34-104) U/L Ammonia (18-72) umol/L Troponin I High Sens (0-20) pg/ml B-Natriuretic Peptide (0-100) pg/ml Total Protein (6.0-8.3) gm/dl Albumin (3.4-5.0) gm/dl Globulin (2.5-4.0) gm/dl Albumin/Globulin Ratio (0.9-2) Triglycerides (0-150) mg/dl Vitamin B1 (8-30) nmol/L Vitamin B12 (180-914) pg/ml 25-OH Vitamin D Total (30-100) ng/ml Folate (>5.38) ng/ml Procalcitonin (0-0.5) ng/ml TSH (0.300-4.500) uIu/ml Free T4 (0.61-1.60) ng/dl Urine Color Urine Appearance (Clear) Urine pH (4.5-7.5) Ur Specific Pioneer (1.000-1.030) Urine Protein (Negative) Urine Glucose (UA) (Negative) Urine Ketones (Negative) Urine Blood (Negative) Urine Nitrite (Negative) Urine Bilirubin (Negative) Urine Urobilinogen (Negative) Ur Leukocyte Esterase (Negative) Urine WBC (Auto) Urine RBC (Auto) U Hyaline Cast (Auto) U Epithel Cells (Auto) Urine Bacteria (Auto) Ur Renal Epithelial Cell Urine Crystals Calcium Oxalate Crystal Uric Acid Crystals Triple Phos Crystals Other Crystals Amorphous Sediment Granular Casts Waxy Casts RBC Casts WBC Casts Pathogenic Casts Other Casts Urine Mucus Urine Other Urine Trichomonas Urine Yeast Urine Sperm Ur Oval Fat Bodies Ur Culture Indicated? Nasal Screen MRSA (PCR) (Negative) Random Vancomycin (10-20) mcg/ml Adenovirus (PCR) (NotDetected) B. pertussis DNA (PCR) (NotDetected) B.parapertussis DNA PCR (NotDetected) C. pneumoniae DNA (PCR) (NotDetected) Coronavirus OC43 (PCR) (NotDetected) Coronavirus HKU1 (PCR) (NotDetected) Coronavirus 229E (PCR) (NotDetected) SARS-CoV-2 (PCR) (NotDetected) Coronavirus NL63 (PCR) (NotDetected) Human Metapneumovir PCR (NotDetected) Influenza Type A (PCR) (NotDetected) Influenza Type B (PCR) (NotDetected) M. pneumoniae (PCR) (NotDetected) Parainfluenza 1 (PCR) (NotDetected) Parainfluenza 2 (PCR) (NotDetected) Parainfluenza 3 (PCR) (NotDetected) Parainfluenza 4 (PCR) (NotDetected) RSV (RT-PCR) (Neg) RSV (PCR) (NotDetected) Entero/Rhino (PCR) (NotDetected) Blood Type Blood Type Recheck Antibody Screen Crossmatch 09/01/23 09/01/23 09/01/23 Range/Units 03:51 04:23 08:19 WBC 14.36 H (4.8-10.8) K/ul RBC 2.96 L (4.70-6.10) M/uL Hgb 9.2 L (14.0-18.0) g/dl POC Hgb 8.5 L (14.0-18.0) g/dl Hct 28.7 L (42.0-52.0) % POC Hct 25 L (42-52) % MCV 97.0 (80.0-100.0) fL MCH 31.1 (25.0-34.0) pg MCHC 32.1 (32.0-36.0) g/dL RDW Std Deviation 49.2 H (36.4-46.3) fL RDW Coeff of Jesse 14.2 (11.5-14.5) % Plt Count 190 D (130-400) K/uL MPV 9.5 (9.4-12.4) fL Immature Gran % (Auto) 0.6 % Neut % (Auto) 94.1 % Lymph % (Auto) 2.2 % Dupage % (Auto) 2.9 % Eos % (Auto) 0.0 % Baso % (Auto) 0.2 % Neut # (Auto) 13.51 H (1.40-6.50) K/uL Lymph # (Auto) 0.32 L (1.20-3.40) K/uL Dupage # (Auto) 0.41 (0.11-0.59) K/uL Eos # (Auto) 0.00 (0.00-0.50) K/uL Baso # (Auto) 0.03 (0.00-0.20) K/uL Immature Gran # (Auto) 0.09 (0.01-0.20) K/uL Platelet Estimate Normal (Normal) RBC Morphology Echinocytes PT (9.0-12.0) Seconds INR (0.9-1.1) APTT (21-31) Seconds PTT Ratio D-Dimer (0-500) ug/L FEU Sample Site Art Line POC pH 7.43 (7.35-7.45) POC pCO2 26 L (35-46) mmHg POC pO2 78 L (80-95) mmHg POC HCO3 18 L (19-24) lachelle/L POC Total CO2 18 L (24-31) mmol/L POC Base Excess -7.0 (-9-1.8) lachelle/L ABG pH (7.35-7.45) ABG pH (Temp Correct) 7.417 (7.35-7.45) ABG pCO2 (35-46) mmHg ABG pCO2 (Temp Corrct 28 L (35-46) mmHg ABG pO2 (80-95) mmHg POC ABG pO2 at Pt Temp 84 ABG HCO3 (19-24) mmol/L POC ABG O2 Sat 96.0 H (90-95) % ABG O2 Saturation (90-95) % ABG Base Excess (-9-1.8) mEq/L Mikey Test NA (Pos) VBG pH (7.36-7.41) VBG pCO2 (38-50) mmHg VBG pO2 mmHg VBG HCO3 mmol/L VBG O2 Saturation % VBG Base Excess mEq/L Oxygen Given O2 Delivery Device Ventilator POC O2 Rate 18 POC FiO2 35 % Tidal Volume 400 PEEP 5 POC Sodium 138 (135-144) mmol/L Sodium 137 (136-145) mmol/L POC Potassium 4.4 (3.3-5.0) mmol/L Potassium 4.3 (3.5-5.1) mmol/L POC Chloride (101-112) mmol/L Chloride 109 H (98-107) mmol/L Carbon Dioxide 19 L (21-32) mmol/L Anion Gap 9 (3-11) POC Anion Gap (16-25) mmol/L POC BUN (7-18) mg/dl BUN 36 H (6-23) mg/dl Creatinine 2.24 H (0.6-1.4) mg/dl POC Creatinine (0.6-1.3) mg/dl Est Cr Clr Drug Dosing 27.0 Est GFR ( Amer) 32.7 ml/min Est GFR (Non-Af Amer) 28.2 ml/min BUN/Creatinine Ratio 16.1 (10-20) Glucose 121 H (70-99(Fasting)) mg/dl POC Glucose 140 H (70-99) mg/dl POC Glucose (other) (70-99) mg/dl Lactate (0.4-2.0) mmol/L Calcium 7.6 L (8.6-10.3) mg/dl POC Ioniz Calcium José Antonio (1.12-1.32) mmol/l Phosphorus (2.5-4.9) mg/dl Magnesium (1.7-2.4) mg/dl Iron (35-175) mcg/dl TIBC (250-450) mcg/dl Unsaturated IBC (155-355) mcg/dl Transferrin % Sat (20-50) % Ferritin (8-388) ng/ml Total Bilirubin 0.4 (0.2-1.0) mg/dl Direct Bilirubin (0-0.2) mg/dl AST 15 (13-39) U/L ALT 22 (7-52) U/L Alkaline Phosphatase 107 H (34-104) U/L Ammonia (18-72) umol/L Troponin I High Sens (0-20) pg/ml B-Natriuretic Peptide (0-100) pg/ml Total Protein 4.5 L (6.0-8.3) gm/dl Albumin 2.5 L (3.4-5.0) gm/dl Globulin 2.0 L (2.5-4.0) gm/dl Albumin/Globulin Ratio 1.3 (0.9-2) Triglycerides (0-150) mg/dl Vitamin B1 (8-30) nmol/L Vitamin B12 (180-914) pg/ml 25-OH Vitamin D Total (30-100) ng/ml Folate (>5.38) ng/ml Procalcitonin (0-0.5) ng/ml TSH (0.300-4.500) uIu/ml Free T4 (0.61-1.60) ng/dl Urine Color Urine Appearance (Clear) Urine pH (4.5-7.5) Ur Specific Pioneer (1.000-1.030) Urine Protein (Negative) Urine Glucose (UA) (Negative) Urine Ketones (Negative) Urine Blood (Negative) Urine Nitrite (Negative) Urine Bilirubin (Negative) Urine Urobilinogen (Negative) Ur Leukocyte Esterase (Negative) Urine WBC (Auto) Urine RBC (Auto) U Hyaline Cast (Auto) U Epithel Cells (Auto) Urine Bacteria (Auto) Ur Renal Epithelial Cell Urine Crystals Calcium Oxalate Crystal Uric Acid Crystals Triple Phos Crystals Other Crystals Amorphous Sediment Granular Casts Waxy Casts RBC Casts WBC Casts Pathogenic Casts Other Casts Urine Mucus Urine Other Urine Trichomonas Urine Yeast Urine Sperm Ur Oval Fat Bodies Ur Culture Indicated? Nasal Screen MRSA (PCR) (Negative) Random Vancomycin 10.5 (10-20) mcg/ml Adenovirus (PCR) (NotDetected) B. pertussis DNA (PCR) (NotDetected) B.parapertussis DNA PCR (NotDetected) C. pneumoniae DNA (PCR) (NotDetected) Coronavirus OC43 (PCR) (NotDetected) Coronavirus HKU1 (PCR) (NotDetected) Coronavirus 229E (PCR) (NotDetected) SARS-CoV-2 (PCR) (NotDetected) Coronavirus NL63 (PCR) (NotDetected) Human Metapneumovir PCR (NotDetected) Influenza Type A (PCR) (NotDetected) Influenza Type B (PCR) (NotDetected) M. pneumoniae (PCR) (NotDetected) Parainfluenza 1 (PCR) (NotDetected) Parainfluenza 2 (PCR) (NotDetected) Parainfluenza 3 (PCR) (NotDetected) Parainfluenza 4 (PCR) (NotDetected) RSV (RT-PCR) (Neg) RSV (PCR) (NotDetected) Entero/Rhino (PCR) (NotDetected) Blood Type Blood Type Recheck Antibody Screen Crossmatch 09/01/23 09/01/23 09/01/23 Range/Units 11:31 12:11 16:25 WBC (4.8-10.8) K/ul RBC (4.70-6.10) M/uL Hgb 9.4 L (14.0-18.0) g/dl POC Hgb (14.0-18.0) g/dl Hct 28.4 L (42.0-52.0) % POC Hct (42-52) % MCV (80.0-100.0) fL MCH (25.0-34.0) pg MCHC (32.0-36.0) g/dL RDW Std Deviation (36.4-46.3) fL RDW Coeff of Jesse (11.5-14.5) % Plt Count (130-400) K/uL MPV (9.4-12.4) fL Immature Gran % (Auto) % Neut % (Auto) % Lymph % (Auto) % Dupage % (Auto) % Eos % (Auto) % Baso % (Auto) % Neut # (Auto) (1.40-6.50) K/uL Lymph # (Auto) (1.20-3.40) K/uL Dupage # (Auto) (0.11-0.59) K/uL Eos # (Auto) (0.00-0.50) K/uL Baso # (Auto) (0.00-0.20) K/uL Immature Gran # (Auto) (0.01-0.20) K/uL Platelet Estimate (Normal) RBC Morphology Echinocytes PT (9.0-12.0) Seconds INR (0.9-1.1) APTT (21-31) Seconds PTT Ratio D-Dimer (0-500) ug/L FEU Sample Site POC pH (7.35-7.45) POC pCO2 (35-46) mmHg POC pO2 (80-95) mmHg POC HCO3 (19-24) lachelle/L POC Total CO2 (24-31) mmol/L POC Base Excess (-9-1.8) lachelle/L ABG pH (7.35-7.45) ABG pH (Temp Correct) (7.35-7.45) ABG pCO2 (35-46) mmHg ABG pCO2 (Temp Corrct (35-46) mmHg ABG pO2 (80-95) mmHg POC ABG pO2 at Pt Temp ABG HCO3 (19-24) mmol/L POC ABG O2 Sat (90-95) % ABG O2 Saturation (90-95) % ABG Base Excess (-9-1.8) mEq/L Mikey Test (Pos) VBG pH (7.36-7.41) VBG pCO2 (38-50) mmHg VBG pO2 mmHg VBG HCO3 mmol/L VBG O2 Saturation % VBG Base Excess mEq/L Oxygen Given O2 Delivery Device POC O2 Rate POC FiO2 % Tidal Volume PEEP POC Sodium (135-144) mmol/L Sodium (136-145) mmol/L POC Potassium (3.3-5.0) mmol/L Potassium (3.5-5.1) mmol/L POC Chloride (101-112) mmol/L Chloride (98-107) mmol/L Carbon Dioxide (21-32) mmol/L Anion Gap (3-11) POC Anion Gap (16-25) mmol/L POC BUN (7-18) mg/dl BUN (6-23) mg/dl Creatinine (0.6-1.4) mg/dl POC Creatinine (0.6-1.3) mg/dl Est Cr Clr Drug Dosing Est GFR ( Amer) ml/min Est GFR (Non-Af Amer) ml/min BUN/Creatinine Ratio (10-20) Glucose (70-99(Fasting)) mg/dl POC Glucose 133 H 103 H (70-99) mg/dl POC Glucose (other) (70-99) mg/dl Lactate (0.4-2.0) mmol/L Calcium (8.6-10.3) mg/dl POC Ioniz Calcium José Antonio (1.12-1.32) mmol/l Phosphorus (2.5-4.9) mg/dl Magnesium (1.7-2.4) mg/dl Iron (35-175) mcg/dl TIBC (250-450) mcg/dl Unsaturated IBC (155-355) mcg/dl Transferrin % Sat (20-50) % Ferritin (8-388) ng/ml Total Bilirubin (0.2-1.0) mg/dl Direct Bilirubin (0-0.2) mg/dl AST (13-39) U/L ALT (7-52) U/L Alkaline Phosphatase (34-104) U/L Ammonia (18-72) umol/L Troponin I High Sens (0-20) pg/ml B-Natriuretic Peptide (0-100) pg/ml Total Protein (6.0-8.3) gm/dl Albumin (3.4-5.0) gm/dl Globulin (2.5-4.0) gm/dl Albumin/Globulin Ratio (0.9-2) Triglycerides (0-150) mg/dl Vitamin B1 (8-30) nmol/L Vitamin B12 (180-914) pg/ml 25-OH Vitamin D Total (30-100) ng/ml Folate (>5.38) ng/ml Procalcitonin (0-0.5) ng/ml TSH (0.300-4.500) uIu/ml Free T4 (0.61-1.60) ng/dl Urine Color Urine Appearance (Clear) Urine pH (4.5-7.5) Ur Specific Pioneer (1.000-1.030) Urine Protein (Negative) Urine Glucose (UA) (Negative) Urine Ketones (Negative) Urine Blood (Negative) Urine Nitrite (Negative) Urine Bilirubin (Negative) Urine Urobilinogen (Negative) Ur Leukocyte Esterase (Negative) Urine WBC (Auto) Urine RBC (Auto) U Hyaline Cast (Auto) U Epithel Cells (Auto) Urine Bacteria (Auto) Ur Renal Epithelial Cell Urine Crystals Calcium Oxalate Crystal Uric Acid Crystals Triple Phos Crystals Other Crystals Amorphous Sediment Granular Casts Waxy Casts RBC Casts WBC Casts Pathogenic Casts Other Casts Urine Mucus Urine Other Urine Trichomonas Urine Yeast Urine Sperm Ur Oval Fat Bodies Ur Culture Indicated? Nasal Screen MRSA (PCR) (Negative) Random Vancomycin (10-20) mcg/ml Adenovirus (PCR) (NotDetected) B. pertussis DNA (PCR) (NotDetected) B.parapertussis DNA PCR (NotDetected) C. pneumoniae DNA (PCR) (NotDetected) Coronavirus OC43 (PCR) (NotDetected) Coronavirus HKU1 (PCR) (NotDetected) Coronavirus 229E (PCR) (NotDetected) SARS-CoV-2 (PCR) (NotDetected) Coronavirus NL63 (PCR) (NotDetected) Human Metapneumovir PCR (NotDetected) Influenza Type A (PCR) (NotDetected) Influenza Type B (PCR) (NotDetected) M. pneumoniae (PCR) (NotDetected) Parainfluenza 1 (PCR) (NotDetected) Parainfluenza 2 (PCR) (NotDetected) Parainfluenza 3 (PCR) (NotDetected) Parainfluenza 4 (PCR) (NotDetected) RSV (RT-PCR) (Neg) RSV (PCR) (NotDetected) Entero/Rhino (PCR) (NotDetected) Blood Type Blood Type Recheck Antibody Screen Crossmatch 09/02/23 09/03/23 09/04/23 Range/Units 04:55 10:31 08:07 WBC 20.22 H (4.8-10.8) K/ul RBC 3.05 L (4.70-6.10) M/uL Hgb 9.5 L (14.0-18.0) g/dl POC Hgb (14.0-18.0) g/dl Hct 29.1 L (42.0-52.0) % POC Hct (42-52) % MCV 95.4 (80.0-100.0) fL MCH 31.1 (25.0-34.0) pg MCHC 32.6 (32.0-36.0) g/dL RDW Std Deviation 49.0 H (36.4-46.3) fL RDW Coeff of Jesse 14.1 (11.5-14.5) % Plt Count 194 (130-400) K/uL MPV 9.5 (9.4-12.4) fL Immature Gran % (Auto) 3.3 % Neut % (Auto) 91.6 % Lymph % (Auto) 1.7 % Dupage % (Auto) 3.3 % Eos % (Auto) 0.0 % Baso % (Auto) 0.1 % Neut # (Auto) 18.50 H (1.40-6.50) K/uL Lymph # (Auto) 0.35 L (1.20-3.40) K/uL Dupage # (Auto) 0.67 H (0.11-0.59) K/uL Eos # (Auto) 0.01 (0.00-0.50) K/uL Baso # (Auto) 0.02 (0.00-0.20) K/uL Immature Gran # (Auto) 0.67 H (0.01-0.20) K/uL Platelet Estimate (Normal) RBC Morphology Echinocytes 1+ PT (9.0-12.0) Seconds INR (0.9-1.1) APTT (21-31) Seconds PTT Ratio D-Dimer (0-500) ug/L FEU Sample Site POC pH (7.35-7.45) POC pCO2 (35-46) mmHg POC pO2 (80-95) mmHg POC HCO3 (19-24) lachelle/L POC Total CO2 (24-31) mmol/L POC Base Excess (-9-1.8) lachelle/L ABG pH (7.35-7.45) ABG pH (Temp Correct) (7.35-7.45) ABG pCO2 (35-46) mmHg ABG pCO2 (Temp Corrct (35-46) mmHg ABG pO2 (80-95) mmHg POC ABG pO2 at Pt Temp ABG HCO3 (19-24) mmol/L POC ABG O2 Sat (90-95) % ABG O2 Saturation (90-95) % ABG Base Excess (-9-1.8) mEq/L Mikey Test (Pos) VBG pH 7.30 L (7.36-7.41) VBG pCO2 42 (38-50) mmHg VBG pO2 25 mmHg VBG HCO3 21 mmol/L VBG O2 Saturation < 60.0 % VBG Base Excess -5.5 mEq/L Oxygen Given O2 Delivery Device POC O2 Rate POC FiO2 % Tidal Volume PEEP POC Sodium (135-144) mmol/L Sodium 137 137 143 (136-145) mmol/L POC Potassium (3.3-5.0) mmol/L Potassium 4.7 5.0 4.9 (3.5-5.1) mmol/L POC Chloride (101-112) mmol/L Chloride 110 H 111 H 113 H (98-107) mmol/L Carbon Dioxide 18 L 20 L 23 (21-32) mmol/L Anion Gap 9 6 7 (3-11) POC Anion Gap (16-25) mmol/L POC BUN (7-18) mg/dl BUN 35 H 26 H 26 H (6-23) mg/dl Creatinine 1.93 H D 1.36 D 1.27 (0.6-1.4) mg/dl POC Creatinine (0.6-1.3) mg/dl Est Cr Clr Drug Dosing 32.3 45.9 49.2 Est GFR ( Amer) 39.2 59.8 65.0 ml/min Est GFR (Non-Af Amer) 33.8 51.6 56.1 ml/min BUN/Creatinine Ratio 18.1 19.1 20.5 H (10-20) Glucose 132 H 71 65 L (70-99(Fasting)) mg/dl POC Glucose (70-99) mg/dl POC Glucose (other) (70-99) mg/dl Lactate (0.4-2.0) mmol/L Calcium 7.9 L 8.5 L 8.5 L (8.6-10.3) mg/dl POC Ioniz Calcium José Antonio (1.12-1.32) mmol/l Phosphorus 3.9 3.2 4.5 D (2.5-4.9) mg/dl Magnesium 1.4 L 1.9 1.8 (1.7-2.4) mg/dl Iron (35-175) mcg/dl TIBC (250-450) mcg/dl Unsaturated IBC (155-355) mcg/dl Transferrin % Sat (20-50) % Ferritin (8-388) ng/ml Total Bilirubin (0.2-1.0) mg/dl Direct Bilirubin (0-0.2) mg/dl AST (13-39) U/L ALT (7-52) U/L Alkaline Phosphatase (34-104) U/L Ammonia (18-72) umol/L Troponin I High Sens (0-20) pg/ml B-Natriuretic Peptide (0-100) pg/ml Total Protein (6.0-8.3) gm/dl Albumin (3.4-5.0) gm/dl Globulin (2.5-4.0) gm/dl Albumin/Globulin Ratio (0.9-2) Triglycerides (0-150) mg/dl Vitamin B1 (8-30) nmol/L Vitamin B12 (180-914) pg/ml 25-OH Vitamin D Total (30-100) ng/ml Folate (>5.38) ng/ml Procalcitonin (0-0.5) ng/ml TSH (0.300-4.500) uIu/ml Free T4 (0.61-1.60) ng/dl Urine Color Urine Appearance (Clear) Urine pH (4.5-7.5) Ur Specific Pioneer (1.000-1.030) Urine Protein (Negative) Urine Glucose (UA) (Negative) Urine Ketones (Negative) Urine Blood (Negative) Urine Nitrite (Negative) Urine Bilirubin (Negative) Urine Urobilinogen (Negative) Ur Leukocyte Esterase (Negative) Urine WBC (Auto) Urine RBC (Auto) U Hyaline Cast (Auto) U Epithel Cells (Auto) Urine Bacteria (Auto) Ur Renal Epithelial Cell Urine Crystals Calcium Oxalate Crystal Uric Acid Crystals Triple Phos Crystals Other Crystals Amorphous Sediment Granular Casts Waxy Casts RBC Casts WBC Casts Pathogenic Casts Other Casts Urine Mucus Urine Other Urine Trichomonas Urine Yeast Urine Sperm Ur Oval Fat Bodies Ur Culture Indicated? Nasal Screen MRSA (PCR) (Negative) Random Vancomycin (10-20) mcg/ml Adenovirus (PCR) (NotDetected) B. pertussis DNA (PCR) (NotDetected) B.parapertussis DNA PCR (NotDetected) C. pneumoniae DNA (PCR) (NotDetected) Coronavirus OC43 (PCR) (NotDetected) Coronavirus HKU1 (PCR) (NotDetected) Coronavirus 229E (PCR) (NotDetected) SARS-CoV-2 (PCR) (NotDetected) Coronavirus NL63 (PCR) (NotDetected) Human Metapneumovir PCR (NotDetected) Influenza Type A (PCR) (NotDetected) Influenza Type B (PCR) (NotDetected) M. pneumoniae (PCR) (NotDetected) Parainfluenza 1 (PCR) (NotDetected) Parainfluenza 2 (PCR) (NotDetected) Parainfluenza 3 (PCR) (NotDetected) Parainfluenza 4 (PCR) (NotDetected) RSV (RT-PCR) (Neg) RSV (PCR) (NotDetected) Entero/Rhino (PCR) (NotDetected) Blood Type Blood Type Recheck Antibody Screen Crossmatch 09/05/23 09/05/23 09/06/23 Range/Units 03:20 06:29 05:44 WBC 12.11 H (4.8-10.8) K/ul RBC 2.91 L (4.70-6.10) M/uL Hgb 9.1 L (14.0-18.0) g/dl POC Hgb (14.0-18.0) g/dl Hct 28.5 L (42.0-52.0) % POC Hct (42-52) % MCV 97.9 (80.0-100.0) fL MCH 31.3 (25.0-34.0) pg MCHC 31.9 L (32.0-36.0) g/dL RDW Std Deviation 48.7 H (36.4-46.3) fL RDW Coeff of Jesse 13.6 (11.5-14.5) % Plt Count 138 (130-400) K/uL MPV 9.0 L (9.4-12.4) fL Immature Gran % (Auto) % Neut % (Auto) % Lymph % (Auto) % Dupage % (Auto) % Eos % (Auto) % Baso % (Auto) % Neut # (Auto) (1.40-6.50) K/uL Lymph # (Auto) (1.20-3.40) K/uL Dupage # (Auto) (0.11-0.59) K/uL Eos # (Auto) (0.00-0.50) K/uL Baso # (Auto) (0.00-0.20) K/uL Immature Gran # (Auto) (0.01-0.20) K/uL Platelet Estimate (Normal) RBC Morphology Echinocytes PT (9.0-12.0) Seconds INR (0.9-1.1) APTT (21-31) Seconds PTT Ratio D-Dimer (0-500) ug/L FEU Sample Site POC pH (7.35-7.45) POC pCO2 (35-46) mmHg POC pO2 (80-95) mmHg POC HCO3 (19-24) lachelle/L POC Total CO2 (24-31) mmol/L POC Base Excess (-9-1.8) lachelle/L ABG pH 7.24 L 7.29 L (7.35-7.45) ABG pH (Temp Correct) (7.35-7.45) ABG pCO2 53 H 49 H (35-46) mmHg ABG pCO2 (Temp Corrct (35-46) mmHg ABG pO2 139 H 150 H (80-95) mmHg POC ABG pO2 at Pt Temp ABG HCO3 23 24 (19-24) mmol/L POC ABG O2 Sat (90-95) % ABG O2 Saturation 98.9 H 98.7 H (90-95) % ABG Base Excess -5.2 -3.4 (-9-1.8) mEq/L Mikey Test Pos Pos (Pos) VBG pH (7.36-7.41) VBG pCO2 (38-50) mmHg VBG pO2 mmHg VBG HCO3 mmol/L VBG O2 Saturation % VBG Base Excess mEq/L Oxygen Given 5L 5L O2 Delivery Device POC O2 Rate POC FiO2 % Tidal Volume PEEP POC Sodium (135-144) mmol/L Sodium 139 141 (136-145) mmol/L POC Potassium (3.3-5.0) mmol/L Potassium 4.7 4.5 (3.5-5.1) mmol/L POC Chloride (101-112) mmol/L Chloride 110 H 110 H (98-107) mmol/L Carbon Dioxide 24 26 (21-32) mmol/L Anion Gap 5 5 (3-11) POC Anion Gap (16-25) mmol/L POC BUN (7-18) mg/dl BUN 23 20 (6-23) mg/dl Creatinine 1.09 0.85 (0.6-1.4) mg/dl POC Creatinine (0.6-1.3) mg/dl Est Cr Clr Drug Dosing 57.3 73.4 Est GFR ( Amer) 78.2 100.9 ml/min Est GFR (Non-Af Amer) 67.5 87.1 ml/min BUN/Creatinine Ratio 21.1 H 23.5 H (10-20) Glucose 130 H 76 (70-99(Fasting)) mg/dl POC Glucose (70-99) mg/dl POC Glucose (other) (70-99) mg/dl Lactate (0.4-2.0) mmol/L Calcium 8.3 L 7.8 L (8.6-10.3) mg/dl POC Ioniz Calcium José Antonio (1.12-1.32) mmol/l Phosphorus (2.5-4.9) mg/dl Magnesium 1.5 L 1.6 L (1.7-2.4) mg/dl Iron (35-175) mcg/dl TIBC (250-450) mcg/dl Unsaturated IBC (155-355) mcg/dl Transferrin % Sat (20-50) % Ferritin (8-388) ng/ml Total Bilirubin (0.2-1.0) mg/dl Direct Bilirubin (0-0.2) mg/dl AST (13-39) U/L ALT (7-52) U/L Alkaline Phosphatase (34-104) U/L Ammonia (18-72) umol/L Troponin I High Sens (0-20) pg/ml B-Natriuretic Peptide (0-100) pg/ml Total Protein (6.0-8.3) gm/dl Albumin (3.4-5.0) gm/dl Globulin (2.5-4.0) gm/dl Albumin/Globulin Ratio (0.9-2) Triglycerides (0-150) mg/dl Vitamin B1 (8-30) nmol/L Vitamin B12 (180-914) pg/ml 25-OH Vitamin D Total (30-100) ng/ml Folate (>5.38) ng/ml Procalcitonin (0-0.5) ng/ml TSH (0.300-4.500) uIu/ml Free T4 (0.61-1.60) ng/dl Urine Color Urine Appearance (Clear) Urine pH (4.5-7.5) Ur Specific Pioneer (1.000-1.030) Urine Protein (Negative) Urine Glucose (UA) (Negative) Urine Ketones (Negative) Urine Blood (Negative) Urine Nitrite (Negative) Urine Bilirubin (Negative) Urine Urobilinogen (Negative) Ur Leukocyte Esterase (Negative) Urine WBC (Auto) Urine RBC (Auto) U Hyaline Cast (Auto) U Epithel Cells (Auto) Urine Bacteria (Auto) Ur Renal Epithelial Cell Urine Crystals Calcium Oxalate Crystal Uric Acid Crystals Triple Phos Crystals Other Crystals Amorphous Sediment Granular Casts Waxy Casts RBC Casts WBC Casts Pathogenic Casts Other Casts Urine Mucus Urine Other Urine Trichomonas Urine Yeast Urine Sperm Ur Oval Fat Bodies Ur Culture Indicated? Nasal Screen MRSA (PCR) (Negative) Random Vancomycin (10-20) mcg/ml Adenovirus (PCR) (NotDetected) B. pertussis DNA (PCR) (NotDetected) B.parapertussis DNA PCR (NotDetected) C. pneumoniae DNA (PCR) (NotDetected) Coronavirus OC43 (PCR) (NotDetected) Coronavirus HKU1 (PCR) (NotDetected) Coronavirus 229E (PCR) (NotDetected) SARS-CoV-2 (PCR) (NotDetected) Coronavirus NL63 (PCR) (NotDetected) Human Metapneumovir PCR (NotDetected) Influenza Type A (PCR) (NotDetected) Influenza Type B (PCR) (NotDetected) M. pneumoniae (PCR) (NotDetected) Parainfluenza 1 (PCR) (NotDetected) Parainfluenza 2 (PCR) (NotDetected) Parainfluenza 3 (PCR) (NotDetected) Parainfluenza 4 (PCR) (NotDetected) RSV (RT-PCR) (Neg) RSV (PCR) (NotDetected) Entero/Rhino (PCR) (NotDetected) Blood Type Blood Type Recheck Antibody Screen Crossmatch 09/06/23 09/06/23 09/07/23 Range/Units 08:58 08:58 01:16 WBC 13.30 H (4.8-10.8) K/ul RBC 2.90 L (4.70-6.10) M/uL Hgb 8.9 L (14.0-18.0) g/dl POC Hgb (14.0-18.0) g/dl Hct 28.3 L (42.0-52.0) % POC Hct (42-52) % MCV 97.6 (80.0-100.0) fL MCH 30.7 (25.0-34.0) pg MCHC 31.4 L (32.0-36.0) g/dL RDW Std Deviation 48.6 H (36.4-46.3) fL RDW Coeff of Jesse 13.4 (11.5-14.5) % Plt Count 138 (130-400) K/uL MPV 9.6 (9.4-12.4) fL Immature Gran % (Auto) % Neut % (Auto) % Lymph % (Auto) % Dupage % (Auto) % Eos % (Auto) % Baso % (Auto) % Neut # (Auto) (1.40-6.50) K/uL Lymph # (Auto) (1.20-3.40) K/uL Dupage # (Auto) (0.11-0.59) K/uL Eos # (Auto) (0.00-0.50) K/uL Baso # (Auto) (0.00-0.20) K/uL Immature Gran # (Auto) (0.01-0.20) K/uL Platelet Estimate (Normal) RBC Morphology Echinocytes PT (9.0-12.0) Seconds INR (0.9-1.1) APTT (21-31) Seconds PTT Ratio D-Dimer (0-500) ug/L FEU Sample Site POC pH (7.35-7.45) POC pCO2 (35-46) mmHg POC pO2 (80-95) mmHg POC HCO3 (19-24) lachelle/L POC Total CO2 (24-31) mmol/L POC Base Excess (-9-1.8) lachelle/L ABG pH (7.35-7.45) ABG pH (Temp Correct) (7.35-7.45) ABG pCO2 (35-46) mmHg ABG pCO2 (Temp Corrct (35-46) mmHg ABG pO2 (80-95) mmHg POC ABG pO2 at Pt Temp ABG HCO3 (19-24) mmol/L POC ABG O2 Sat (90-95) % ABG O2 Saturation (90-95) % ABG Base Excess (-9-1.8) mEq/L Mikey Test (Pos) VBG pH (7.36-7.41) VBG pCO2 (38-50) mmHg VBG pO2 mmHg VBG HCO3 mmol/L VBG O2 Saturation % VBG Base Excess mEq/L Oxygen Given O2 Delivery Device POC O2 Rate POC FiO2 % Tidal Volume PEEP POC Sodium (135-144) mmol/L Sodium 141 (136-145) mmol/L POC Potassium (3.3-5.0) mmol/L Potassium 4.1 (3.5-5.1) mmol/L POC Chloride (101-112) mmol/L Chloride 109 H (98-107) mmol/L Carbon Dioxide 27 (21-32) mmol/L Anion Gap 5 (3-11) POC Anion Gap (16-25) mmol/L POC BUN (7-18) mg/dl BUN 20 (6-23) mg/dl Creatinine 0.88 (0.6-1.4) mg/dl POC Creatinine (0.6-1.3) mg/dl Est Cr Clr Drug Dosing 70.9 Est GFR ( Amer) 99.5 ml/min Est GFR (Non-Af Amer) 85.8 ml/min BUN/Creatinine Ratio 22.7 H (10-20) Glucose 77 (70-99(Fasting)) mg/dl POC Glucose 126 H (70-99) mg/dl POC Glucose (other) (70-99) mg/dl Lactate (0.4-2.0) mmol/L Calcium 7.9 L (8.6-10.3) mg/dl POC Ioniz Calcium José Antonio (1.12-1.32) mmol/l Phosphorus 2.1 L 2.1 L (2.5-4.9) mg/dl Magnesium 1.6 L (1.7-2.4) mg/dl Iron (35-175) mcg/dl TIBC (250-450) mcg/dl Unsaturated IBC (155-355) mcg/dl Transferrin % Sat (20-50) % Ferritin (8-388) ng/ml Total Bilirubin 0.4 (0.2-1.0) mg/dl Direct Bilirubin (0-0.2) mg/dl AST 12 L (13-39) U/L ALT (7-52) U/L Alkaline Phosphatase 167 H (34-104) U/L Ammonia (18-72) umol/L Troponin I High Sens (0-20) pg/ml B-Natriuretic Peptide (0-100) pg/ml Total Protein (6.0-8.3) gm/dl Albumin (3.4-5.0) gm/dl Globulin (2.5-4.0) gm/dl Albumin/Globulin Ratio (0.9-2) Triglycerides 137 (0-150) mg/dl Vitamin B1 (8-30) nmol/L Vitamin B12 (180-914) pg/ml 25-OH Vitamin D Total (30-100) ng/ml Folate (>5.38) ng/ml Procalcitonin (0-0.5) ng/ml TSH (0.300-4.500) uIu/ml Free T4 (0.61-1.60) ng/dl Urine Color Urine Appearance (Clear) Urine pH (4.5-7.5) Ur Specific Pioneer (1.000-1.030) Urine Protein (Negative) Urine Glucose (UA) (Negative) Urine Ketones (Negative) Urine Blood (Negative) Urine Nitrite (Negative) Urine Bilirubin (Negative) Urine Urobilinogen (Negative) Ur Leukocyte Esterase (Negative) Urine WBC (Auto) Urine RBC (Auto) U Hyaline Cast (Auto) U Epithel Cells (Auto) Urine Bacteria (Auto) Ur Renal Epithelial Cell Urine Crystals Calcium Oxalate Crystal Uric Acid Crystals Triple Phos Crystals Other Crystals Amorphous Sediment Granular Casts Waxy Casts RBC Casts WBC Casts Pathogenic Casts Other Casts Urine Mucus Urine Other Urine Trichomonas Urine Yeast Urine Sperm Ur Oval Fat Bodies Ur Culture Indicated? Nasal Screen MRSA (PCR) (Negative) Random Vancomycin (10-20) mcg/ml Adenovirus (PCR) (NotDetected) B. pertussis DNA (PCR) (NotDetected) B.parapertussis DNA PCR (NotDetected) C. pneumoniae DNA (PCR) (NotDetected) Coronavirus OC43 (PCR) (NotDetected) Coronavirus HKU1 (PCR) (NotDetected) Coronavirus 229E (PCR) (NotDetected) SARS-CoV-2 (PCR) (NotDetected) Coronavirus NL63 (PCR) (NotDetected) Human Metapneumovir PCR (NotDetected) Influenza Type A (PCR) (NotDetected) Influenza Type B (PCR) (NotDetected) M. pneumoniae (PCR) (NotDetected) Parainfluenza 1 (PCR) (NotDetected) Parainfluenza 2 (PCR) (NotDetected) Parainfluenza 3 (PCR) (NotDetected) Parainfluenza 4 (PCR) (NotDetected) RSV (RT-PCR) (Neg) RSV (PCR) (NotDetected) Entero/Rhino (PCR) (NotDetected) Blood Type Blood Type Recheck Antibody Screen Crossmatch 09/07/23 09/07/23 09/07/23 Range/Units 06:03 11:45 15:55 WBC (4.8-10.8) K/ul RBC (4.70-6.10) M/uL Hgb (14.0-18.0) g/dl POC Hgb (14.0-18.0) g/dl Hct (42.0-52.0) % POC Hct (42-52) % MCV (80.0-100.0) fL MCH (25.0-34.0) pg MCHC (32.0-36.0) g/dL RDW Std Deviation (36.4-46.3) fL RDW Coeff of Jesse (11.5-14.5) % Plt Count (130-400) K/uL MPV (9.4-12.4) fL Immature Gran % (Auto) % Neut % (Auto) % Lymph % (Auto) % Dupage % (Auto) % Eos % (Auto) % Baso % (Auto) % Neut # (Auto) (1.40-6.50) K/uL Lymph # (Auto) (1.20-3.40) K/uL Dupage # (Auto) (0.11-0.59) K/uL Eos # (Auto) (0.00-0.50) K/uL Baso # (Auto) (0.00-0.20) K/uL Immature Gran # (Auto) (0.01-0.20) K/uL Platelet Estimate (Normal) RBC Morphology Echinocytes PT (9.0-12.0) Seconds INR (0.9-1.1) APTT (21-31) Seconds PTT Ratio D-Dimer (0-500) ug/L FEU Sample Site POC pH (7.35-7.45) POC pCO2 (35-46) mmHg POC pO2 (80-95) mmHg POC HCO3 (19-24) lachelle/L POC Total CO2 (24-31) mmol/L POC Base Excess (-9-1.8) lachelle/L ABG pH (7.35-7.45) ABG pH (Temp Correct) (7.35-7.45) ABG pCO2 (35-46) mmHg ABG pCO2 (Temp Corrct (35-46) mmHg ABG pO2 (80-95) mmHg POC ABG pO2 at Pt Temp ABG HCO3 (19-24) mmol/L POC ABG O2 Sat (90-95) % ABG O2 Saturation (90-95) % ABG Base Excess (-9-1.8) mEq/L Mikey Test (Pos) VBG pH 7.23 L (7.36-7.41) VBG pCO2 71 H (38-50) mmHg VBG pO2 30 mmHg VBG HCO3 30 mmol/L VBG O2 Saturation < 60.0 % VBG Base Excess 0.2 mEq/L Oxygen Given O2 Delivery Device POC O2 Rate POC FiO2 % Tidal Volume PEEP POC Sodium (135-144) mmol/L Sodium 139 (136-145) mmol/L POC Potassium (3.3-5.0) mmol/L Potassium 4.0 (3.5-5.1) mmol/L POC Chloride (101-112) mmol/L Chloride 107 (98-107) mmol/L Carbon Dioxide 25 (21-32) mmol/L Anion Gap 7 (3-11) POC Anion Gap (16-25) mmol/L POC BUN (7-18) mg/dl BUN 19 (6-23) mg/dl Creatinine 0.81 (0.6-1.4) mg/dl POC Creatinine (0.6-1.3) mg/dl Est Cr Clr Drug Dosing 77.1 Est GFR ( Amer) 102.9 ml/min Est GFR (Non-Af Amer) 88.8 ml/min BUN/Creatinine Ratio 23.5 H (10-20) Glucose 146 H (70-99(Fasting)) mg/dl POC Glucose 141 H (70-99) mg/dl POC Glucose (other) (70-99) mg/dl Lactate 1.5 (0.4-2.0) mmol/L Calcium 8.1 L (8.6-10.3) mg/dl POC Ioniz Calcium José Antonio (1.12-1.32) mmol/l Phosphorus 2.3 L (2.5-4.9) mg/dl Magnesium 1.8 (1.7-2.4) mg/dl Iron (35-175) mcg/dl TIBC (250-450) mcg/dl Unsaturated IBC (155-355) mcg/dl Transferrin % Sat (20-50) % Ferritin (8-388) ng/ml Total Bilirubin (0.2-1.0) mg/dl Direct Bilirubin (0-0.2) mg/dl AST (13-39) U/L ALT (7-52) U/L Alkaline Phosphatase (34-104) U/L Ammonia 22.0 (18-72) umol/L Troponin I High Sens (0-20) pg/ml B-Natriuretic Peptide (0-100) pg/ml Total Protein (6.0-8.3) gm/dl Albumin (3.4-5.0) gm/dl Globulin (2.5-4.0) gm/dl Albumin/Globulin Ratio (0.9-2) Triglycerides (0-150) mg/dl Vitamin B1 (8-30) nmol/L Vitamin B12 (180-914) pg/ml 25-OH Vitamin D Total (30-100) ng/ml Folate (>5.38) ng/ml Procalcitonin (0-0.5) ng/ml TSH (0.300-4.500) uIu/ml Free T4 (0.61-1.60) ng/dl Urine Color Urine Appearance (Clear) Urine pH (4.5-7.5) Ur Specific Pioneer (1.000-1.030) Urine Protein (Negative) Urine Glucose (UA) (Negative) Urine Ketones (Negative) Urine Blood (Negative) Urine Nitrite (Negative) Urine Bilirubin (Negative) Urine Urobilinogen (Negative) Ur Leukocyte Esterase (Negative) Urine WBC (Auto) Urine RBC (Auto) U Hyaline Cast (Auto) U Epithel Cells (Auto) Urine Bacteria (Auto) Ur Renal Epithelial Cell Urine Crystals Calcium Oxalate Crystal Uric Acid Crystals Triple Phos Crystals Other Crystals Amorphous Sediment Granular Casts Waxy Casts RBC Casts WBC Casts Pathogenic Casts Other Casts Urine Mucus Urine Other Urine Trichomonas Urine Yeast Urine Sperm Ur Oval Fat Bodies Ur Culture Indicated? Nasal Screen MRSA (PCR) (Negative) Random Vancomycin (10-20) mcg/ml Adenovirus (PCR) (NotDetected) B. pertussis DNA (PCR) (NotDetected) B.parapertussis DNA PCR (NotDetected) C. pneumoniae DNA (PCR) (NotDetected) Coronavirus OC43 (PCR) (NotDetected) Coronavirus HKU1 (PCR) (NotDetected) Coronavirus 229E (PCR) (NotDetected) SARS-CoV-2 (PCR) (NotDetected) Coronavirus NL63 (PCR) (NotDetected) Human Metapneumovir PCR (NotDetected) Influenza Type A (PCR) (NotDetected) Influenza Type B (PCR) (NotDetected) M. pneumoniae (PCR) (NotDetected) Parainfluenza 1 (PCR) (NotDetected) Parainfluenza 2 (PCR) (NotDetected) Parainfluenza 3 (PCR) (NotDetected) Parainfluenza 4 (PCR) (NotDetected) RSV (RT-PCR) (Neg) RSV (PCR) (NotDetected) Entero/Rhino (PCR) (NotDetected) Blood Type Blood Type Recheck Antibody Screen Crossmatch 09/07/23 09/07/23 09/07/23 Range/Units 16:13 17:38 20:19 WBC 16.79 H (4.8-10.8) K/ul RBC 3.34 L (4.70-6.10) M/uL Hgb 10.2 L (14.0-18.0) g/dl POC Hgb (14.0-18.0) g/dl Hct 32.0 L (42.0-52.0) % POC Hct (42-52) % MCV 95.8 (80.0-100.0) fL MCH 30.5 (25.0-34.0) pg MCHC 31.9 L (32.0-36.0) g/dL RDW Std Deviation 47.8 H (36.4-46.3) fL RDW Coeff of Jesse 13.5 (11.5-14.5) % Plt Count 224 D (130-400) K/uL MPV 9.5 (9.4-12.4) fL Immature Gran % (Auto) 1.7 % Neut % (Auto) 92.9 % Lymph % (Auto) 2.8 % Dupage % (Auto) 2.4 % Eos % (Auto) 0.1 % Baso % (Auto) 0.1 % Neut # (Auto) 15.59 H (1.40-6.50) K/uL Lymph # (Auto) 0.47 L (1.20-3.40) K/uL Dupage # (Auto) 0.41 (0.11-0.59) K/uL Eos # (Auto) 0.01 (0.00-0.50) K/uL Baso # (Auto) 0.02 (0.00-0.20) K/uL Immature Gran # (Auto) 0.29 H (0.01-0.20) K/uL Platelet Estimate (Normal) RBC Morphology Echinocytes PT (9.0-12.0) Seconds INR (0.9-1.1) APTT (21-31) Seconds PTT Ratio D-Dimer (0-500) ug/L FEU Sample Site POC pH (7.35-7.45) POC pCO2 (35-46) mmHg POC pO2 (80-95) mmHg POC HCO3 (19-24) lachelle/L POC Total CO2 (24-31) mmol/L POC Base Excess (-9-1.8) lachelle/L ABG pH (7.35-7.45) ABG pH (Temp Correct) (7.35-7.45) ABG pCO2 (35-46) mmHg ABG pCO2 (Temp Corrct (35-46) mmHg ABG pO2 (80-95) mmHg POC ABG pO2 at Pt Temp ABG HCO3 (19-24) mmol/L POC ABG O2 Sat (90-95) % ABG O2 Saturation (90-95) % ABG Base Excess (-9-1.8) mEq/L Mikey Test (Pos) VBG pH 7.25 L 7.31 L (7.36-7.41) VBG pCO2 69 H 60 H (38-50) mmHg VBG pO2 30 47 mmHg VBG HCO3 30 30 mmol/L VBG O2 Saturation < 60.0 74.3 % VBG Base Excess 1.2 2.4 mEq/L Oxygen Given O2 Delivery Device POC O2 Rate POC FiO2 % Tidal Volume PEEP POC Sodium (135-144) mmol/L Sodium (136-145) mmol/L POC Potassium (3.3-5.0) mmol/L Potassium (3.5-5.1) mmol/L POC Chloride (101-112) mmol/L Chloride (98-107) mmol/L Carbon Dioxide (21-32) mmol/L Anion Gap (3-11) POC Anion Gap (16-25) mmol/L POC BUN (7-18) mg/dl BUN (6-23) mg/dl Creatinine (0.6-1.4) mg/dl POC Creatinine (0.6-1.3) mg/dl Est Cr Clr Drug Dosing Est GFR ( Amer) ml/min Est GFR (Non-Af Amer) ml/min BUN/Creatinine Ratio (10-20) Glucose (70-99(Fasting)) mg/dl POC Glucose (70-99) mg/dl POC Glucose (other) (70-99) mg/dl Lactate (0.4-2.0) mmol/L Calcium (8.6-10.3) mg/dl POC Ioniz Calcium José Antonio (1.12-1.32) mmol/l Phosphorus (2.5-4.9) mg/dl Magnesium (1.7-2.4) mg/dl Iron (35-175) mcg/dl TIBC (250-450) mcg/dl Unsaturated IBC (155-355) mcg/dl Transferrin % Sat (20-50) % Ferritin (8-388) ng/ml Total Bilirubin 0.4 (0.2-1.0) mg/dl Direct Bilirubin 0.1 (0-0.2) mg/dl AST 18 (13-39) U/L ALT 21 (7-52) U/L Alkaline Phosphatase 171 H (34-104) U/L Ammonia (18-72) umol/L Troponin I High Sens (0-20) pg/ml B-Natriuretic Peptide (0-100) pg/ml Total Protein 5.2 L (6.0-8.3) gm/dl Albumin 2.6 L (3.4-5.0) gm/dl Globulin (2.5-4.0) gm/dl Albumin/Globulin Ratio (0.9-2) Triglycerides (0-150) mg/dl Vitamin B1 (8-30) nmol/L Vitamin B12 (180-914) pg/ml 25-OH Vitamin D Total (30-100) ng/ml Folate (>5.38) ng/ml Procalcitonin 0.76 H (0-0.5) ng/ml TSH 6.604 H (0.300-4.500) uIu/ml Free T4 0.83 (0.61-1.60) ng/dl Urine Color Urine Appearance (Clear) Urine pH (4.5-7.5) Ur Specific Pioneer (1.000-1.030) Urine Protein (Negative) Urine Glucose (UA) (Negative) Urine Ketones (Negative) Urine Blood (Negative) Urine Nitrite (Negative) Urine Bilirubin (Negative) Urine Urobilinogen (Negative) Ur Leukocyte Esterase (Negative) Urine WBC (Auto) Urine RBC (Auto) U Hyaline Cast (Auto) U Epithel Cells (Auto) Urine Bacteria (Auto) Ur Renal Epithelial Cell Urine Crystals Calcium Oxalate Crystal Uric Acid Crystals Triple Phos Crystals Other Crystals Amorphous Sediment Granular Casts Waxy Casts RBC Casts WBC Casts Pathogenic Casts Other Casts Urine Mucus Urine Other Urine Trichomonas Urine Yeast Urine Sperm Ur Oval Fat Bodies Ur Culture Indicated? Nasal Screen MRSA (PCR) (Negative) Random Vancomycin (10-20) mcg/ml Adenovirus (PCR) (NotDetected) B. pertussis DNA (PCR) (NotDetected) B.parapertussis DNA PCR (NotDetected) C. pneumoniae DNA (PCR) (NotDetected) Coronavirus OC43 (PCR) (NotDetected) Coronavirus HKU1 (PCR) (NotDetected) Coronavirus 229E (PCR) (NotDetected) SARS-CoV-2 (PCR) (NotDetected) Coronavirus NL63 (PCR) (NotDetected) Human Metapneumovir PCR (NotDetected) Influenza Type A (PCR) (NotDetected) Influenza Type B (PCR) (NotDetected) M. pneumoniae (PCR) (NotDetected) Parainfluenza 1 (PCR) (NotDetected) Parainfluenza 2 (PCR) (NotDetected) Parainfluenza 3 (PCR) (NotDetected) Parainfluenza 4 (PCR) (NotDetected) RSV (RT-PCR) (Neg) RSV (PCR) (NotDetected) Entero/Rhino (PCR) (NotDetected) Blood Type Blood Type Recheck Antibody Screen Crossmatch 09/08/23 09/08/23 09/08/23 Range/Units 01:13 05:52 08:10 WBC 12.33 H (4.8-10.8) K/ul RBC 3.04 L (4.70-6.10) M/uL Hgb 9.3 L (14.0-18.0) g/dl POC Hgb (14.0-18.0) g/dl Hct 28.7 L (42.0-52.0) % POC Hct (42-52) % MCV 94.4 (80.0-100.0) fL MCH 30.6 (25.0-34.0) pg MCHC 32.4 (32.0-36.0) g/dL RDW Std Deviation 46.8 H (36.4-46.3) fL RDW Coeff of Jesse 13.6 (11.5-14.5) % Plt Count 169 (130-400) K/uL MPV 9.8 (9.4-12.4) fL Immature Gran % (Auto) % Neut % (Auto) % Lymph % (Auto) % Dupage % (Auto) % Eos % (Auto) % Baso % (Auto) % Neut # (Auto) (1.40-6.50) K/uL Lymph # (Auto) (1.20-3.40) K/uL Dupage # (Auto) (0.11-0.59) K/uL Eos # (Auto) (0.00-0.50) K/uL Baso # (Auto) (0.00-0.20) K/uL Immature Gran # (Auto) (0.01-0.20) K/uL Platelet Estimate (Normal) RBC Morphology Echinocytes PT (9.0-12.0) Seconds INR (0.9-1.1) APTT (21-31) Seconds PTT Ratio D-Dimer (0-500) ug/L FEU Sample Site POC pH (7.35-7.45) POC pCO2 (35-46) mmHg POC pO2 (80-95) mmHg POC HCO3 (19-24) lachelle/L POC Total CO2 (24-31) mmol/L POC Base Excess (-9-1.8) lachelle/L ABG pH (7.35-7.45) ABG pH (Temp Correct) (7.35-7.45) ABG pCO2 (35-46) mmHg ABG pCO2 (Temp Corrct (35-46) mmHg ABG pO2 (80-95) mmHg POC ABG pO2 at Pt Temp ABG HCO3 (19-24) mmol/L POC ABG O2 Sat (90-95) % ABG O2 Saturation (90-95) % ABG Base Excess (-9-1.8) mEq/L Mikey Test (Pos) VBG pH 7.36 (7.36-7.41) VBG pCO2 55 H (38-50) mmHg VBG pO2 42 mmHg VBG HCO3 31 mmol/L VBG O2 Saturation 68.6 % VBG Base Excess 4.2 mEq/L Oxygen Given O2 Delivery Device POC O2 Rate POC FiO2 % Tidal Volume PEEP POC Sodium (135-144) mmol/L Sodium 142 (136-145) mmol/L POC Potassium (3.3-5.0) mmol/L Potassium 3.3 L (3.5-5.1) mmol/L POC Chloride (101-112) mmol/L Chloride 107 (98-107) mmol/L Carbon Dioxide 28 (21-32) mmol/L Anion Gap 7 (3-11) POC Anion Gap (16-25) mmol/L POC BUN (7-18) mg/dl BUN 18 (6-23) mg/dl Creatinine 0.77 (0.6-1.4) mg/dl POC Creatinine (0.6-1.3) mg/dl Est Cr Clr Drug Dosing 81.1 Est GFR ( Amer) 105.1 ml/min Est GFR (Non-Af Amer) 90.7 ml/min BUN/Creatinine Ratio 23.4 H (10-20) Glucose 87 (70-99(Fasting)) mg/dl POC Glucose 99 74 (70-99) mg/dl POC Glucose (other) (70-99) mg/dl Lactate (0.4-2.0) mmol/L Calcium 7.9 L (8.6-10.3) mg/dl POC Ioniz Calcium José Antonio (1.12-1.32) mmol/l Phosphorus (2.5-4.9) mg/dl Magnesium 1.5 L (1.7-2.4) mg/dl Iron (35-175) mcg/dl TIBC (250-450) mcg/dl Unsaturated IBC (155-355) mcg/dl Transferrin % Sat (20-50) % Ferritin (8-388) ng/ml Total Bilirubin (0.2-1.0) mg/dl Direct Bilirubin (0-0.2) mg/dl AST (13-39) U/L ALT (7-52) U/L Alkaline Phosphatase (34-104) U/L Ammonia (18-72) umol/L Troponin I High Sens (0-20) pg/ml B-Natriuretic Peptide (0-100) pg/ml Total Protein (6.0-8.3) gm/dl Albumin (3.4-5.0) gm/dl Globulin (2.5-4.0) gm/dl Albumin/Globulin Ratio (0.9-2) Triglycerides (0-150) mg/dl Vitamin B1 (8-30) nmol/L Vitamin B12 (180-914) pg/ml 25-OH Vitamin D Total (30-100) ng/ml Folate (>5.38) ng/ml Procalcitonin (0-0.5) ng/ml TSH (0.300-4.500) uIu/ml Free T4 (0.61-1.60) ng/dl Urine Color Urine Appearance (Clear) Urine pH (4.5-7.5) Ur Specific Pioneer (1.000-1.030) Urine Protein (Negative) Urine Glucose (UA) (Negative) Urine Ketones (Negative) Urine Blood (Negative) Urine Nitrite (Negative) Urine Bilirubin (Negative) Urine Urobilinogen (Negative) Ur Leukocyte Esterase (Negative) Urine WBC (Auto) Urine RBC (Auto) U Hyaline Cast (Auto) U Epithel Cells (Auto) Urine Bacteria (Auto) Ur Renal Epithelial Cell Urine Crystals Calcium Oxalate Crystal Uric Acid Crystals Triple Phos Crystals Other Crystals Amorphous Sediment Granular Casts Waxy Casts RBC Casts WBC Casts Pathogenic Casts Other Casts Urine Mucus Urine Other Urine Trichomonas Urine Yeast Urine Sperm Ur Oval Fat Bodies Ur Culture Indicated? Nasal Screen MRSA (PCR) (Negative) Random Vancomycin (10-20) mcg/ml Adenovirus (PCR) (NotDetected) B. pertussis DNA (PCR) (NotDetected) B.parapertussis DNA PCR (NotDetected) C. pneumoniae DNA (PCR) (NotDetected) Coronavirus OC43 (PCR) (NotDetected) Coronavirus HKU1 (PCR) (NotDetected) Coronavirus 229E (PCR) (NotDetected) SARS-CoV-2 (PCR) (NotDetected) Coronavirus NL63 (PCR) (NotDetected) Human Metapneumovir PCR (NotDetected) Influenza Type A (PCR) (NotDetected) Influenza Type B (PCR) (NotDetected) M. pneumoniae (PCR) (NotDetected) Parainfluenza 1 (PCR) (NotDetected) Parainfluenza 2 (PCR) (NotDetected) Parainfluenza 3 (PCR) (NotDetected) Parainfluenza 4 (PCR) (NotDetected) RSV (RT-PCR) (Neg) RSV (PCR) (NotDetected) Entero/Rhino (PCR) (NotDetected) Blood Type Blood Type Recheck Antibody Screen Crossmatch 09/08/23 09/08/23 09/08/23 Range/Units 11:05 14:00 18:15 WBC (4.8-10.8) K/ul RBC (4.70-6.10) M/uL Hgb (14.0-18.0) g/dl POC Hgb (14.0-18.0) g/dl Hct (42.0-52.0) % POC Hct (42-52) % MCV (80.0-100.0) fL MCH (25.0-34.0) pg MCHC (32.0-36.0) g/dL RDW Std Deviation (36.4-46.3) fL RDW Coeff of Jesse (11.5-14.5) % Plt Count (130-400) K/uL MPV (9.4-12.4) fL Immature Gran % (Auto) % Neut % (Auto) % Lymph % (Auto) % Dupage % (Auto) % Eos % (Auto) % Baso % (Auto) % Neut # (Auto) (1.40-6.50) K/uL Lymph # (Auto) (1.20-3.40) K/uL Dupage # (Auto) (0.11-0.59) K/uL Eos # (Auto) (0.00-0.50) K/uL Baso # (Auto) (0.00-0.20) K/uL Immature Gran # (Auto) (0.01-0.20) K/uL Platelet Estimate (Normal) RBC Morphology Echinocytes PT (9.0-12.0) Seconds INR (0.9-1.1) APTT (21-31) Seconds PTT Ratio D-Dimer (0-500) ug/L FEU Sample Site POC pH (7.35-7.45) POC pCO2 (35-46) mmHg POC pO2 (80-95) mmHg POC HCO3 (19-24) lachelle/L POC Total CO2 (24-31) mmol/L POC Base Excess (-9-1.8) lachelle/L ABG pH (7.35-7.45) ABG pH (Temp Correct) (7.35-7.45) ABG pCO2 (35-46) mmHg ABG pCO2 (Temp Corrct (35-46) mmHg ABG pO2 (80-95) mmHg POC ABG pO2 at Pt Temp ABG HCO3 (19-24) mmol/L POC ABG O2 Sat (90-95) % ABG O2 Saturation (90-95) % ABG Base Excess (-9-1.8) mEq/L Mikey Test (Pos) VBG pH (7.36-7.41) VBG pCO2 (38-50) mmHg VBG pO2 mmHg VBG HCO3 mmol/L VBG O2 Saturation % VBG Base Excess mEq/L Oxygen Given O2 Delivery Device POC O2 Rate POC FiO2 % Tidal Volume PEEP POC Sodium (135-144) mmol/L Sodium (136-145) mmol/L POC Potassium (3.3-5.0) mmol/L Potassium (3.5-5.1) mmol/L POC Chloride (101-112) mmol/L Chloride (98-107) mmol/L Carbon Dioxide (21-32) mmol/L Anion Gap (3-11) POC Anion Gap (16-25) mmol/L POC BUN (7-18) mg/dl BUN (6-23) mg/dl Creatinine (0.6-1.4) mg/dl POC Creatinine (0.6-1.3) mg/dl Est Cr Clr Drug Dosing Est GFR ( Amer) ml/min Est GFR (Non-Af Amer) ml/min BUN/Creatinine Ratio (10-20) Glucose (70-99(Fasting)) mg/dl POC Glucose 81 81 (70-99) mg/dl POC Glucose (other) (70-99) mg/dl Lactate (0.4-2.0) mmol/L Calcium (8.6-10.3) mg/dl POC Ioniz Calcium José Antonio (1.12-1.32) mmol/l Phosphorus (2.5-4.9) mg/dl Magnesium (1.7-2.4) mg/dl Iron (35-175) mcg/dl TIBC (250-450) mcg/dl Unsaturated IBC (155-355) mcg/dl Transferrin % Sat (20-50) % Ferritin (8-388) ng/ml Total Bilirubin (0.2-1.0) mg/dl Direct Bilirubin (0-0.2) mg/dl AST (13-39) U/L ALT (7-52) U/L Alkaline Phosphatase (34-104) U/L Ammonia (18-72) umol/L Troponin I High Sens (0-20) pg/ml B-Natriuretic Peptide (0-100) pg/ml Total Protein (6.0-8.3) gm/dl Albumin (3.4-5.0) gm/dl Globulin (2.5-4.0) gm/dl Albumin/Globulin Ratio (0.9-2) Triglycerides (0-150) mg/dl Vitamin B1 (8-30) nmol/L Vitamin B12 (180-914) pg/ml 25-OH Vitamin D Total (30-100) ng/ml Folate (>5.38) ng/ml Procalcitonin (0-0.5) ng/ml TSH (0.300-4.500) uIu/ml Free T4 (0.61-1.60) ng/dl Urine Color Urine Appearance (Clear) Urine pH (4.5-7.5) Ur Specific Pioneer (1.000-1.030) Urine Protein (Negative) Urine Glucose (UA) (Negative) Urine Ketones (Negative) Urine Blood (Negative) Urine Nitrite (Negative) Urine Bilirubin (Negative) Urine Urobilinogen (Negative) Ur Leukocyte Esterase (Negative) Urine WBC (Auto) Urine RBC (Auto) U Hyaline Cast (Auto) U Epithel Cells (Auto) Urine Bacteria (Auto) Ur Renal Epithelial Cell Urine Crystals Calcium Oxalate Crystal Uric Acid Crystals Triple Phos Crystals Other Crystals Amorphous Sediment Granular Casts Waxy Casts RBC Casts WBC Casts Pathogenic Casts Other Casts Urine Mucus Urine Other Urine Trichomonas Urine Yeast Urine Sperm Ur Oval Fat Bodies Ur Culture Indicated? Nasal Screen MRSA (PCR) Negative (Negative) Random Vancomycin (10-20) mcg/ml Adenovirus (PCR) (NotDetected) B. pertussis DNA (PCR) (NotDetected) B.parapertussis DNA PCR (NotDetected) C. pneumoniae DNA (PCR) (NotDetected) Coronavirus OC43 (PCR) (NotDetected) Coronavirus HKU1 (PCR) (NotDetected) Coronavirus 229E (PCR) (NotDetected) SARS-CoV-2 (PCR) NEGATIVE (NotDetected) Coronavirus NL63 (PCR) (NotDetected) Human Metapneumovir PCR (NotDetected) Influenza Type A (PCR) Negative (NotDetected) Influenza Type B (PCR) Negative (NotDetected) M. pneumoniae (PCR) (NotDetected) Parainfluenza 1 (PCR) (NotDetected) Parainfluenza 2 (PCR) (NotDetected) Parainfluenza 3 (PCR) (NotDetected) Parainfluenza 4 (PCR) (NotDetected) RSV (RT-PCR) Negative (Neg) RSV (PCR) (NotDetected) Entero/Rhino (PCR) (NotDetected) Blood Type Blood Type Recheck Antibody Screen Crossmatch 09/09/23 09/09/23 09/09/23 Range/Units 05:46 06:29 11:59 WBC 9.90 (4.8-10.8) K/ul RBC 2.99 L (4.70-6.10) M/uL Hgb 9.2 L (14.0-18.0) g/dl POC Hgb (14.0-18.0) g/dl Hct 28.6 L (42.0-52.0) % POC Hct (42-52) % MCV 95.7 (80.0-100.0) fL MCH 30.8 (25.0-34.0) pg MCHC 32.2 (32.0-36.0) g/dL RDW Std Deviation 47.2 H (36.4-46.3) fL RDW Coeff of Jesse 13.7 (11.5-14.5) % Plt Count 157 (130-400) K/uL MPV 9.6 (9.4-12.4) fL Immature Gran % (Auto) % Neut % (Auto) % Lymph % (Auto) % Dupage % (Auto) % Eos % (Auto) % Baso % (Auto) % Neut # (Auto) (1.40-6.50) K/uL Lymph # (Auto) (1.20-3.40) K/uL Dupage # (Auto) (0.11-0.59) K/uL Eos # (Auto) (0.00-0.50) K/uL Baso # (Auto) (0.00-0.20) K/uL Immature Gran # (Auto) (0.01-0.20) K/uL Platelet Estimate (Normal) RBC Morphology Echinocytes PT (9.0-12.0) Seconds INR (0.9-1.1) APTT (21-31) Seconds PTT Ratio D-Dimer (0-500) ug/L FEU Sample Site POC pH (7.35-7.45) POC pCO2 (35-46) mmHg POC pO2 (80-95) mmHg POC HCO3 (19-24) lachelle/L POC Total CO2 (24-31) mmol/L POC Base Excess (-9-1.8) lachelle/L ABG pH (7.35-7.45) ABG pH (Temp Correct) (7.35-7.45) ABG pCO2 (35-46) mmHg ABG pCO2 (Temp Corrct (35-46) mmHg ABG pO2 (80-95) mmHg POC ABG pO2 at Pt Temp ABG HCO3 (19-24) mmol/L POC ABG O2 Sat (90-95) % ABG O2 Saturation (90-95) % ABG Base Excess (-9-1.8) mEq/L Mikey Test (Pos) VBG pH (7.36-7.41) VBG pCO2 (38-50) mmHg VBG pO2 mmHg VBG HCO3 mmol/L VBG O2 Saturation % VBG Base Excess mEq/L Oxygen Given O2 Delivery Device POC O2 Rate POC FiO2 % Tidal Volume PEEP POC Sodium (135-144) mmol/L Sodium 144 (136-145) mmol/L POC Potassium (3.3-5.0) mmol/L Potassium 3.3 L (3.5-5.1) mmol/L POC Chloride (101-112) mmol/L Chloride 107 (98-107) mmol/L Carbon Dioxide 29 (21-32) mmol/L Anion Gap 8 (3-11) POC Anion Gap (16-25) mmol/L POC BUN (7-18) mg/dl BUN 17 (6-23) mg/dl Creatinine 0.71 (0.6-1.4) mg/dl POC Creatinine (0.6-1.3) mg/dl Est Cr Clr Drug Dosing 87.9 Est GFR ( Amer) 108.6 ml/min Est GFR (Non-Af Amer) 93.7 ml/min BUN/Creatinine Ratio 23.9 H (10-20) Glucose 83 (70-99(Fasting)) mg/dl POC Glucose 91 101 H (70-99) mg/dl POC Glucose (other) (70-99) mg/dl Lactate (0.4-2.0) mmol/L Calcium 8.0 L (8.6-10.3) mg/dl POC Ioniz Calcium José Antonio (1.12-1.32) mmol/l Phosphorus (2.5-4.9) mg/dl Magnesium 1.7 (1.7-2.4) mg/dl Iron (35-175) mcg/dl TIBC (250-450) mcg/dl Unsaturated IBC (155-355) mcg/dl Transferrin % Sat (20-50) % Ferritin (8-388) ng/ml Total Bilirubin (0.2-1.0) mg/dl Direct Bilirubin (0-0.2) mg/dl AST (13-39) U/L ALT (7-52) U/L Alkaline Phosphatase (34-104) U/L Ammonia (18-72) umol/L Troponin I High Sens (0-20) pg/ml B-Natriuretic Peptide (0-100) pg/ml Total Protein (6.0-8.3) gm/dl Albumin (3.4-5.0) gm/dl Globulin (2.5-4.0) gm/dl Albumin/Globulin Ratio (0.9-2) Triglycerides (0-150) mg/dl Vitamin B1 (8-30) nmol/L Vitamin B12 (180-914) pg/ml 25-OH Vitamin D Total (30-100) ng/ml Folate (>5.38) ng/ml Procalcitonin (0-0.5) ng/ml TSH (0.300-4.500) uIu/ml Free T4 (0.61-1.60) ng/dl Urine Color Urine Appearance (Clear) Urine pH (4.5-7.5) Ur Specific Pioneer (1.000-1.030) Urine Protein (Negative) Urine Glucose (UA) (Negative) Urine Ketones (Negative) Urine Blood (Negative) Urine Nitrite (Negative) Urine Bilirubin (Negative) Urine Urobilinogen (Negative) Ur Leukocyte Esterase (Negative) Urine WBC (Auto) Urine RBC (Auto) U Hyaline Cast (Auto) U Epithel Cells (Auto) Urine Bacteria (Auto) Ur Renal Epithelial Cell Urine Crystals Calcium Oxalate Crystal Uric Acid Crystals Triple Phos Crystals Other Crystals Amorphous Sediment Granular Casts Waxy Casts RBC Casts WBC Casts Pathogenic Casts Other Casts Urine Mucus Urine Other Urine Trichomonas Urine Yeast Urine Sperm Ur Oval Fat Bodies Ur Culture Indicated? Nasal Screen MRSA (PCR) (Negative) Random Vancomycin (10-20) mcg/ml Adenovirus (PCR) (NotDetected) B. pertussis DNA (PCR) (NotDetected) B.parapertussis DNA PCR (NotDetected) C. pneumoniae DNA (PCR) (NotDetected) Coronavirus OC43 (PCR) (NotDetected) Coronavirus HKU1 (PCR) (NotDetected) Coronavirus 229E (PCR) (NotDetected) SARS-CoV-2 (PCR) (NotDetected) Coronavirus NL63 (PCR) (NotDetected) Human Metapneumovir PCR (NotDetected) Influenza Type A (PCR) (NotDetected) Influenza Type B (PCR) (NotDetected) M. pneumoniae (PCR) (NotDetected) Parainfluenza 1 (PCR) (NotDetected) Parainfluenza 2 (PCR) (NotDetected) Parainfluenza 3 (PCR) (NotDetected) Parainfluenza 4 (PCR) (NotDetected) RSV (RT-PCR) (Neg) RSV (PCR) (NotDetected) Entero/Rhino (PCR) (NotDetected) Blood Type Blood Type Recheck Antibody Screen Crossmatch 09/10/23 09/10/23 09/11/23 Range/Units 06:25 09:49 05:30 WBC (4.8-10.8) K/ul RBC (4.70-6.10) M/uL Hgb (14.0-18.0) g/dl POC Hgb (14.0-18.0) g/dl Hct (42.0-52.0) % POC Hct (42-52) % MCV (80.0-100.0) fL MCH (25.0-34.0) pg MCHC (32.0-36.0) g/dL RDW Std Deviation (36.4-46.3) fL RDW Coeff of Jesse (11.5-14.5) % Plt Count (130-400) K/uL MPV (9.4-12.4) fL Immature Gran % (Auto) % Neut % (Auto) % Lymph % (Auto) % Dupage % (Auto) % Eos % (Auto) % Baso % (Auto) % Neut # (Auto) (1.40-6.50) K/uL Lymph # (Auto) (1.20-3.40) K/uL Dupage # (Auto) (0.11-0.59) K/uL Eos # (Auto) (0.00-0.50) K/uL Baso # (Auto) (0.00-0.20) K/uL Immature Gran # (Auto) (0.01-0.20) K/uL Platelet Estimate (Normal) RBC Morphology Echinocytes PT (9.0-12.0) Seconds INR (0.9-1.1) APTT (21-31) Seconds PTT Ratio D-Dimer (0-500) ug/L FEU Sample Site POC pH (7.35-7.45) POC pCO2 (35-46) mmHg POC pO2 (80-95) mmHg POC HCO3 (19-24) lachelle/L POC Total CO2 (24-31) mmol/L POC Base Excess (-9-1.8) lachelle/L ABG pH (7.35-7.45) ABG pH (Temp Correct) (7.35-7.45) ABG pCO2 (35-46) mmHg ABG pCO2 (Temp Corrct (35-46) mmHg ABG pO2 (80-95) mmHg POC ABG pO2 at Pt Temp ABG HCO3 (19-24) mmol/L POC ABG O2 Sat (90-95) % ABG O2 Saturation (90-95) % ABG Base Excess (-9-1.8) mEq/L Mikey Test (Pos) VBG pH 7.51 H (7.36-7.41) VBG pCO2 38 (38-50) mmHg VBG pO2 64 mmHg VBG HCO3 30 mmol/L VBG O2 Saturation 94.4 % VBG Base Excess 6.9 mEq/L Oxygen Given O2 Delivery Device POC O2 Rate POC FiO2 % Tidal Volume PEEP POC Sodium (135-144) mmol/L Sodium 142 145 (136-145) mmol/L POC Potassium (3.3-5.0) mmol/L Potassium 3.5 3.4 L (3.5-5.1) mmol/L POC Chloride (101-112) mmol/L Chloride 107 108 H (98-107) mmol/L Carbon Dioxide 28 31 (21-32) mmol/L Anion Gap 7 6 (3-11) POC Anion Gap (16-25) mmol/L POC BUN (7-18) mg/dl BUN 20 21 (6-23) mg/dl Creatinine 0.79 0.94 (0.6-1.4) mg/dl POC Creatinine (0.6-1.3) mg/dl Est Cr Clr Drug Dosing 79.0 66.4 Est GFR ( Amer) 104.0 93.5 ml/min Est GFR (Non-Af Amer) 89.7 80.7 ml/min BUN/Creatinine Ratio 25.3 H 22.3 H (10-20) Glucose 139 H 102 H (70-99(Fasting)) mg/dl POC Glucose (70-99) mg/dl POC Glucose (other) (70-99) mg/dl Lactate (0.4-2.0) mmol/L Calcium 8.4 L 8.6 (8.6-10.3) mg/dl POC Ioniz Calcium José Antonio (1.12-1.32) mmol/l Phosphorus (2.5-4.9) mg/dl Magnesium 1.7 1.7 (1.7-2.4) mg/dl Iron (35-175) mcg/dl TIBC (250-450) mcg/dl Unsaturated IBC (155-355) mcg/dl Transferrin % Sat (20-50) % Ferritin (8-388) ng/ml Total Bilirubin (0.2-1.0) mg/dl Direct Bilirubin (0-0.2) mg/dl AST (13-39) U/L ALT (7-52) U/L Alkaline Phosphatase (34-104) U/L Ammonia (18-72) umol/L Troponin I High Sens (0-20) pg/ml B-Natriuretic Peptide (0-100) pg/ml Total Protein (6.0-8.3) gm/dl Albumin (3.4-5.0) gm/dl Globulin (2.5-4.0) gm/dl Albumin/Globulin Ratio (0.9-2) Triglycerides (0-150) mg/dl Vitamin B1 (8-30) nmol/L Vitamin B12 (180-914) pg/ml 25-OH Vitamin D Total 43.7 (30-100) ng/ml Folate (>5.38) ng/ml Procalcitonin (0-0.5) ng/ml TSH (0.300-4.500) uIu/ml Free T4 (0.61-1.60) ng/dl Urine Color Urine Appearance (Clear) Urine pH (4.5-7.5) Ur Specific Pioneer (1.000-1.030) Urine Protein (Negative) Urine Glucose (UA) (Negative) Urine Ketones (Negative) Urine Blood (Negative) Urine Nitrite (Negative) Urine Bilirubin (Negative) Urine Urobilinogen (Negative) Ur Leukocyte Esterase (Negative) Urine WBC (Auto) Urine RBC (Auto) U Hyaline Cast (Auto) U Epithel Cells (Auto) Urine Bacteria (Auto) Ur Renal Epithelial Cell Urine Crystals Calcium Oxalate Crystal Uric Acid Crystals Triple Phos Crystals Other Crystals Amorphous Sediment Granular Casts Waxy Casts RBC Casts WBC Casts Pathogenic Casts Other Casts Urine Mucus Urine Other Urine Trichomonas Urine Yeast Urine Sperm Ur Oval Fat Bodies Ur Culture Indicated? Nasal Screen MRSA (PCR) (Negative) Random Vancomycin (10-20) mcg/ml Adenovirus (PCR) (NotDetected) B. pertussis DNA (PCR) (NotDetected) B.parapertussis DNA PCR (NotDetected) C. pneumoniae DNA (PCR) (NotDetected) Coronavirus OC43 (PCR) (NotDetected) Coronavirus HKU1 (PCR) (NotDetected) Coronavirus 229E (PCR) (NotDetected) SARS-CoV-2 (PCR) (NotDetected) Coronavirus NL63 (PCR) (NotDetected) Human Metapneumovir PCR (NotDetected) Influenza Type A (PCR) (NotDetected) Influenza Type B (PCR) (NotDetected) M. pneumoniae (PCR) (NotDetected) Parainfluenza 1 (PCR) (NotDetected) Parainfluenza 2 (PCR) (NotDetected) Parainfluenza 3 (PCR) (NotDetected) Parainfluenza 4 (PCR) (NotDetected) RSV (RT-PCR) (Neg) RSV (PCR) (NotDetected) Entero/Rhino (PCR) (NotDetected) Blood Type Blood Type Recheck Antibody Screen Crossmatch 09/11/23 09/12/23 09/12/23 Range/Units 22:33 07:30 12:55 WBC 13.42 H 15.39 H (4.8-10.8) K/ul RBC 3.39 L 3.26 L (4.70-6.10) M/uL Hgb 10.4 L 10.0 L (14.0-18.0) g/dl POC Hgb (14.0-18.0) g/dl Hct 31.6 L 31.2 L (42.0-52.0) % POC Hct (42-52) % MCV 93.2 95.7 (80.0-100.0) fL MCH 30.7 30.7 (25.0-34.0) pg MCHC 32.9 32.1 (32.0-36.0) g/dL RDW Std Deviation 47.9 H 50.2 H (36.4-46.3) fL RDW Coeff of Jesse 14.8 H 15.2 H (11.5-14.5) % Plt Count 196 210 (130-400) K/uL MPV 10.5 9.9 (9.4-12.4) fL Immature Gran % (Auto) % Neut % (Auto) % Lymph % (Auto) % Dupage % (Auto) % Eos % (Auto) % Baso % (Auto) % Neut # (Auto) (1.40-6.50) K/uL Lymph # (Auto) (1.20-3.40) K/uL Dupage # (Auto) (0.11-0.59) K/uL Eos # (Auto) (0.00-0.50) K/uL Baso # (Auto) (0.00-0.20) K/uL Immature Gran # (Auto) (0.01-0.20) K/uL Platelet Estimate (Normal) RBC Morphology Echinocytes PT (9.0-12.0) Seconds INR (0.9-1.1) APTT (21-31) Seconds PTT Ratio D-Dimer (0-500) ug/L FEU Sample Site POC pH (7.35-7.45) POC pCO2 (35-46) mmHg POC pO2 (80-95) mmHg POC HCO3 (19-24) lachelle/L POC Total CO2 (24-31) mmol/L POC Base Excess (-9-1.8) lachelle/L ABG pH (7.35-7.45) ABG pH (Temp Correct) (7.35-7.45) ABG pCO2 (35-46) mmHg ABG pCO2 (Temp Corrct (35-46) mmHg ABG pO2 (80-95) mmHg POC ABG pO2 at Pt Temp ABG HCO3 (19-24) mmol/L POC ABG O2 Sat (90-95) % ABG O2 Saturation (90-95) % ABG Base Excess (-9-1.8) mEq/L Mikey Test (Pos) VBG pH (7.36-7.41) VBG pCO2 (38-50) mmHg VBG pO2 mmHg VBG HCO3 mmol/L VBG O2 Saturation % VBG Base Excess mEq/L Oxygen Given O2 Delivery Device POC O2 Rate POC FiO2 % Tidal Volume PEEP POC Sodium (135-144) mmol/L Sodium 144 (136-145) mmol/L POC Potassium (3.3-5.0) mmol/L Potassium 3.6 (3.5-5.1) mmol/L POC Chloride (101-112) mmol/L Chloride 110 H (98-107) mmol/L Carbon Dioxide 27 (21-32) mmol/L Anion Gap 7 (3-11) POC Anion Gap (16-25) mmol/L POC BUN (7-18) mg/dl BUN 24 H (6-23) mg/dl Creatinine 0.98 (0.6-1.4) mg/dl POC Creatinine (0.6-1.3) mg/dl Est Cr Clr Drug Dosing 63.7 Est GFR ( Amer) 88.9 ml/min Est GFR (Non-Af Amer) 76.7 ml/min BUN/Creatinine Ratio 24.5 H (10-20) Glucose 102 H (70-99(Fasting)) mg/dl POC Glucose (70-99) mg/dl POC Glucose (other) (70-99) mg/dl Lactate 1.8 (0.4-2.0) mmol/L Calcium 8.7 (8.6-10.3) mg/dl POC Ioniz Calcium José Antonio (1.12-1.32) mmol/l Phosphorus (2.5-4.9) mg/dl Magnesium (1.7-2.4) mg/dl Iron (35-175) mcg/dl TIBC (250-450) mcg/dl Unsaturated IBC (155-355) mcg/dl Transferrin % Sat (20-50) % Ferritin (8-388) ng/ml Total Bilirubin (0.2-1.0) mg/dl Direct Bilirubin (0-0.2) mg/dl AST (13-39) U/L ALT (7-52) U/L Alkaline Phosphatase (34-104) U/L Ammonia (18-72) umol/L Troponin I High Sens (0-20) pg/ml B-Natriuretic Peptide 614 H (0-100) pg/ml Total Protein (6.0-8.3) gm/dl Albumin (3.4-5.0) gm/dl Globulin (2.5-4.0) gm/dl Albumin/Globulin Ratio (0.9-2) Triglycerides (0-150) mg/dl Vitamin B1 (8-30) nmol/L Vitamin B12 (180-914) pg/ml 25-OH Vitamin D Total (30-100) ng/ml Folate (>5.38) ng/ml Procalcitonin (0-0.5) ng/ml TSH (0.300-4.500) uIu/ml Free T4 (0.61-1.60) ng/dl Urine Color Urine Appearance (Clear) Urine pH (4.5-7.5) Ur Specific Pioneer (1.000-1.030) Urine Protein (Negative) Urine Glucose (UA) (Negative) Urine Ketones (Negative) Urine Blood (Negative) Urine Nitrite (Negative) Urine Bilirubin (Negative) Urine Urobilinogen (Negative) Ur Leukocyte Esterase (Negative) Urine WBC (Auto) Urine RBC (Auto) U Hyaline Cast (Auto) U Epithel Cells (Auto) Urine Bacteria (Auto) Ur Renal Epithelial Cell Urine Crystals Calcium Oxalate Crystal Uric Acid Crystals Triple Phos Crystals Other Crystals Amorphous Sediment Granular Casts Waxy Casts RBC Casts WBC Casts Pathogenic Casts Other Casts Urine Mucus Urine Other Urine Trichomonas Urine Yeast Urine Sperm Ur Oval Fat Bodies Ur Culture Indicated? Nasal Screen MRSA (PCR) (Negative) Random Vancomycin (10-20) mcg/ml Adenovirus (PCR) (NotDetected) B. pertussis DNA (PCR) (NotDetected) B.parapertussis DNA PCR (NotDetected) C. pneumoniae DNA (PCR) (NotDetected) Coronavirus OC43 (PCR) (NotDetected) Coronavirus HKU1 (PCR) (NotDetected) Coronavirus 229E (PCR) (NotDetected) SARS-CoV-2 (PCR) (NotDetected) Coronavirus NL63 (PCR) (NotDetected) Human Metapneumovir PCR (NotDetected) Influenza Type A (PCR) (NotDetected) Influenza Type B (PCR) (NotDetected) M. pneumoniae (PCR) (NotDetected) Parainfluenza 1 (PCR) (NotDetected) Parainfluenza 2 (PCR) (NotDetected) Parainfluenza 3 (PCR) (NotDetected) Parainfluenza 4 (PCR) (NotDetected) RSV (RT-PCR) (Neg) RSV (PCR) (NotDetected) Entero/Rhino (PCR) (NotDetected) Blood Type Blood Type Recheck Antibody Screen Crossmatch 09/13/23 09/13/23 Range/Units 07:45 10:34 WBC 14.57 H (4.8-10.8) K/ul RBC 3.35 L (4.70-6.10) M/uL Hgb 10.2 L (14.0-18.0) g/dl POC Hgb (14.0-18.0) g/dl Hct 32.3 L (42.0-52.0) % POC Hct (42-52) % MCV 96.4 (80.0-100.0) fL MCH 30.4 (25.0-34.0) pg MCHC 31.6 L (32.0-36.0) g/dL RDW Std Deviation 53.1 H (36.4-46.3) fL RDW Coeff of Jesse 16.0 H (11.5-14.5) % Plt Count 275 (130-400) K/uL MPV 9.6 (9.4-12.4) fL Immature Gran % (Auto) 1.1 % Neut % (Auto) 84.1 % Lymph % (Auto) 7.2 % Dupage % (Auto) 7.5 % Eos % (Auto) 0.0 % Baso % (Auto) 0.1 % Neut # (Auto) 12.24 H (1.40-6.50) K/uL Lymph # (Auto) 1.05 L (1.20-3.40) K/uL Dupage # (Auto) 1.10 H (0.11-0.59) K/uL Eos # (Auto) 0.00 (0.00-0.50) K/uL Baso # (Auto) 0.02 (0.00-0.20) K/uL Immature Gran # (Auto) 0.16 (0.01-0.20) K/uL Platelet Estimate (Normal) RBC Morphology Echinocytes PT (9.0-12.0) Seconds INR (0.9-1.1) APTT (21-31) Seconds PTT Ratio D-Dimer (0-500) ug/L FEU Sample Site POC pH (7.35-7.45) POC pCO2 (35-46) mmHg POC pO2 (80-95) mmHg POC HCO3 (19-24) lachelle/L POC Total CO2 (24-31) mmol/L POC Base Excess (-9-1.8) lachelle/L ABG pH (7.35-7.45) ABG pH (Temp Correct) (7.35-7.45) ABG pCO2 (35-46) mmHg ABG pCO2 (Temp Corrct (35-46) mmHg ABG pO2 (80-95) mmHg POC ABG pO2 at Pt Temp ABG HCO3 (19-24) mmol/L POC ABG O2 Sat (90-95) % ABG O2 Saturation (90-95) % ABG Base Excess (-9-1.8) mEq/L Mikey Test (Pos) VBG pH (7.36-7.41) VBG pCO2 (38-50) mmHg VBG pO2 mmHg VBG HCO3 mmol/L VBG O2 Saturation % VBG Base Excess mEq/L Oxygen Given O2 Delivery Device POC O2 Rate POC FiO2 % Tidal Volume PEEP POC Sodium (135-144) mmol/L Sodium 147 H (136-145) mmol/L POC Potassium (3.3-5.0) mmol/L Potassium 3.6 (3.5-5.1) mmol/L POC Chloride (101-112) mmol/L Chloride 111 H (98-107) mmol/L Carbon Dioxide 26 (21-32) mmol/L Anion Gap 10 (3-11) POC Anion Gap (16-25) mmol/L POC BUN (7-18) mg/dl BUN 33 H (6-23) mg/dl Creatinine 1.54 H D (0.6-1.4) mg/dl POC Creatinine (0.6-1.3) mg/dl Est Cr Clr Drug Dosing 39.9 Est GFR ( Amer) 51.5 ml/min Est GFR (Non-Af Amer) 44.4 ml/min BUN/Creatinine Ratio 21.4 H (10-20) Glucose 95 (70-99(Fasting)) mg/dl POC Glucose (70-99) mg/dl POC Glucose (other) (70-99) mg/dl Lactate (0.4-2.0) mmol/L Calcium 8.7 (8.6-10.3) mg/dl POC Ioniz Calcium José Antonio (1.12-1.32) mmol/l Phosphorus (2.5-4.9) mg/dl Magnesium (1.7-2.4) mg/dl Iron (35-175) mcg/dl TIBC (250-450) mcg/dl Unsaturated IBC (155-355) mcg/dl Transferrin % Sat (20-50) % Ferritin (8-388) ng/ml Total Bilirubin (0.2-1.0) mg/dl Direct Bilirubin (0-0.2) mg/dl AST (13-39) U/L ALT (7-52) U/L Alkaline Phosphatase (34-104) U/L Ammonia (18-72) umol/L Troponin I High Sens (0-20) pg/ml B-Natriuretic Peptide (0-100) pg/ml Total Protein (6.0-8.3) gm/dl Albumin (3.4-5.0) gm/dl Globulin (2.5-4.0) gm/dl Albumin/Globulin Ratio (0.9-2) Triglycerides (0-150) mg/dl Vitamin B1 (8-30) nmol/L Vitamin B12 (180-914) pg/ml 25-OH Vitamin D Total (30-100) ng/ml Folate (>5.38) ng/ml Procalcitonin 0.34 (0-0.5) ng/ml TSH (0.300-4.500) uIu/ml Free T4 (0.61-1.60) ng/dl Urine Color Urine Appearance (Clear) Urine pH (4.5-7.5) Ur Specific Pioneer (1.000-1.030) Urine Protein (Negative) Urine Glucose (UA) (Negative) Urine Ketones (Negative) Urine Blood (Negative) Urine Nitrite (Negative) Urine Bilirubin (Negative) Urine Urobilinogen (Negative) Ur Leukocyte Esterase (Negative) Urine WBC (Auto) Urine RBC (Auto) U Hyaline Cast (Auto) U Epithel Cells (Auto) Urine Bacteria (Auto) Ur Renal Epithelial Cell Urine Crystals Calcium Oxalate Crystal Uric Acid Crystals Triple Phos Crystals Other Crystals Amorphous Sediment Granular Casts Waxy Casts RBC Casts WBC Casts Pathogenic Casts Other Casts Urine Mucus Urine Other Urine Trichomonas Urine Yeast Urine Sperm Ur Oval Fat Bodies Ur Culture Indicated? Nasal Screen MRSA (PCR) (Negative) Random Vancomycin (10-20) mcg/ml Adenovirus (PCR) (NotDetected) B. pertussis DNA (PCR) (NotDetected) B.parapertussis DNA PCR (NotDetected) C. pneumoniae DNA (PCR) (NotDetected) Coronavirus OC43 (PCR) (NotDetected) Coronavirus HKU1 (PCR) (NotDetected) Coronavirus 229E (PCR) (NotDetected) SARS-CoV-2 (PCR) (NotDetected) Coronavirus NL63 (PCR) (NotDetected) Human Metapneumovir PCR (NotDetected) Influenza Type A (PCR) (NotDetected) Influenza Type B (PCR) (NotDetected) M. pneumoniae (PCR) (NotDetected) Parainfluenza 1 (PCR) (NotDetected) Parainfluenza 2 (PCR) (NotDetected) Parainfluenza 3 (PCR) (NotDetected) Parainfluenza 4 (PCR) (NotDetected) RSV (RT-PCR) (Neg) RSV (PCR) (NotDetected) Entero/Rhino (PCR) (NotDetected) Blood Type Blood Type Recheck Antibody Screen Crossmatch
--- NOTE | 2023-09-13 13:37 | CT Scan Report ---
CT abd pelvis wo con CLINICAL HISTORY: suspected intra-abdominal abscess TECHNIQUE: Helical axial images of the abdomen and pelvis were obtained. Automated dose lowering tech niques and/or adjustment according to patient size were utilized for this exam. This exam was perfor med without intravenous contrast. CT DOSE: 974.88 mGy.cm COMPARISON: Comparison is made to CT abdomen pelvis 09/11/2023 FINDINGS: Lower chest: Moderate right and trace left pleural effusions are seen. There is underlying atelectas is. Cystic and solid lesion in the left lingula is stable to decreased in size from prior exam. Liver: Unremarkable. No focal lesions are seen. Gallbladder and biliary tree: No calcified gallstones. Normal caliber wall. No intra- or extrahepatic biliary ductal dilation. Pancreas: Unremarkable, no focal lesions. Spleen: Unremarkable. Adrenals: Unremarkable. Kidneys and ureters: Nonobstructive nephrolithiasis is seen. Bladder: Unremarkable. Reproductive organs: Unremarkable. Bowel: Inspissated contrast in sigmoid diverticula are seen without evidence of diverticulitis. Lymph nodes Retroperitoneal: Subcentimeter lymph nodes are noted. Pelvic: Unremarkable. Mesenteric: Unremarkable. Peritoneum: Mild fat stranding and pelvic free fluid is seen without acute abnormality. Vessels: Atherosclerotic calcifications are seen. Abdominal wall: Unremarkable. Bones: Degenerative changes in the visualized spine. IMPRESSION: 1. Loculated collection along the superior right hepatic border is similar in size to prior exam but new from 08/31/2023. Abscess cannot be excluded. 2. Pelvic free fluid is seen without a drainable fluid collection. 3. Moderate right and small left pleural effusion. 4. Interval improvement, where visualized, of multifocal pulmonary opacities. ACT 112: Negative or not required by law. Electronically signed by: Brando Yuen M.D. 09/13/2023 1:35 PM
--- NOTE | 2023-09-13 13:47 | XRay Report ---
XR chest 1V portable CLINICAL HISTORY: to R/O lung infection TECHNIQUE: Single frontal radiograph of the chest was obtained. Comparison: Comparison is made to chest radiograph 09/13/2023 FINDINGS: No lines and tubes are seen. The cardiomediastinal silhouette is normal. Interval slight improvement in multifocal airspace opacities. Moderate right pleural effusion. IMPRESSION: Interval slight improvement in multifocal airspace opacities favoring the lower lungs. Moderate right pleural effusion. ACT 112: Negative or not required by law. Electronically signed by: Brando Yuen M.D. 09/13/2023 1:46 PM
--- NOTE | 2023-09-13 14:14 | Hospitalist Progress Note ---
Date of Service September 13, 2023 Assessment & Plan (1) Acute respiratory failure with hypoxia and hypercapnia: Plan: Supplemental oxygen to maintain saturation greater than 90%. Treat suspected underlying atelectasis and possibility of pneumonia. It appears that he does not have congestive heart failure. Serial chest x-ray. Wean off as tolerated. (2) Acute diastolic CHF (congestive heart failure): Plan: Parenteral Lasix has been discontinued. He may have had acute diastolic CHF earlier this admission but not currently. He has received IV fluid bolus and is on continuous IV fluids now. He is NPO. BNP is elevated at 614 but not indicative of acute CHF at this time. Monitor intake and output. Serial chest x-ray. (3) Pneumonia: Plan: Suspected. Possibly bilateral. Cefepime and Flagyl have been switched to intravenous Zosyn, day 1. Serial chest x-ray. Sputum culture if sputum is produced. (4) Perforated viscus: Plan: s/p ex lap 08/31/[address] Sorenson ( POD #[id number]) for perforated cecum. No malignancy seen on pathology report. Intra-peritoneal cultures grew pseudomonas - pansensitive - as well as bacteroides. He had been on zosyn, then briefly meropenem, then changed to cefepime/flagyl . White blood cell count remains elevated. Repeat abdominal pelvic CT scan done today, September 13, reveals fluid around the liver which could be a perihepatic abscess. Dr. Sorenson is aware. He will need transfer to a tertiary care facility for further treatment. Currently NPO. Eliquis is on hold. (5) Intra-abdominal abscess: Plan: as seen on ex lap 08/31/23. Possible recurrence in the perihepatic region on CT scan. He is now on intravenous Zosyn. (6) SBO (small bowel obstruction): Plan: Occurred early July upon presentation to [facility] in [facility] . This was treated conservatively with NG tube and he did not require surgery at that time. Resolved (7) Abnormal CT scan, chest: Plan: nodules also present - concerning for possible underlying malignancy. Appreciate pulm consultation and recs. This will need continued outpatient follow-up. (8) Acute metabolic encephalopathy: Plan: Due to sepsis present on admission. He may have an element of toxic encephalopathy at this time from the Seroquel, which has been discontinued. Supportive care. All FAMILY PRESERVATION OFFICER affecting medications have been discontinued (9) Sepsis: Plan: Present on admission. Initially resolved but appears to have recurred (10) SHEBA (acute kidney injury): Plan: Present on admission. Initially resolved but this has recurred. Parenteral Lasix has been discontinued. He is now on continuous IV fluids. Serial labs. Monitor intake and output (11) Elevated troponin: Plan: No evidence of acute coronary syndrome. Likely myocardial demand ischemia. (12) COPD (chronic obstructive pulmonary disease): Plan: Stable. Continue current medical management (13) Alcohol abuse: Plan: Chronic. Recent alcohol withdrawal treated at [facility] in July. Apparently this course was complicated by withdrawal seizures requiring intubation and ventilator support transiently. Last alcohol intake was over 1 month ago (14) Paroxysmal A-fib: Plan: He is again tachycardic. EKG is pending to evaluate rhythm. Eliquis is on hold. (15) Polymyalgia rheumatica: Plan: Steroid-dependent. Parenteral steroid therapy while NPO. Resume p.o. prednisone when able (16) Severe protein-calorie malnutrition: Plan: Currently n.p.o. status (17) Rheumatoid arthritis: Plan: Stable. Continue parenteral steroid therapy. Hydroxychloroquine is temporarily on hold (18) Anemia: Plan: H/H remain acceptable. B12, folate, Fe studies wnl. Likely anemia of chronic disease from RA, bone marrow suppression from etoh, blood draws, etc. (19) DVT prophylaxis: Plan: Eliquis therapy on hold (20) Hypokalemia: Plan: replaced . Resolved (21) Hypomagnesemia: Plan: replaced. Resolved Plan Transfer to tertiary care center, probably [facility], when arrangements are finalized. Admission and Anticipated Discharge Date Admission Date: August 26, 2023 Subjective Unresponsive and nonverbal. Lasix diuresis did not improve his condition. He does not appear to have CHF. Lasix has been discontinued and he has been given IV fluids including a bolus. Repeat abdominal CT scan reveals fluid in the perihepatic region that could be an abscess. This would account for his clinical condition and a persistently elevated white blood cell count. He did have a cecal perforation repair earlier this admission on August 31. Cefepime and Flagyl have been switched to Zosyn. Blood cultures have been repeated. He received IV fluid bolus and is now on continuous IV fluids. EKG is pending to evaluate the tachycardia. Blood pressure is stable and he does not require pressor support. He needs tertiary care and I have contacted the [facility] transfer center to make arrangements for transfer. The family lives in the [facility] area and has requested transfer to [facility] which is the closest proximity to their home. Review of Systems 2 Review of Systems: The patient is unresponsive and unable to answer any questions related to review of systems at this time Physical Exam 2 Physical Exam: General-unresponsive. No fever HEENT-head atraumatic and normocephalic, pupils equal and reactive to light, extraocular muscles intact. Oral mucosa is dry Neck-no lymphadenopathy or thyromegaly, trachea midline Chest-scattered rhonchi. Diminished breath sounds. No wheezing Cardiac-tachycardic regular rhythm. Normal S1 and S2 Abdomen-hypoactive bowel sounds. No hepatosplenomegaly Extremities-1+ pitting edema bilateral lower extremities below the knees Neuro-unresponsive. Cannot assess Psych-cannot assess Results & Data Results & Data Vital Signs (Past 12 Hours) Vital Signs Temp Pulse Resp BP BP Pulse Ox O2 Del Method 09/13/23 08:17 36.8 C 122 H 27 H 146/93 H 93 Room Air 09/13/23 03:00 36.7 C 125 H 30 H 132/87 91 Room Air Laboratory Results 09/13/23 07:45 09/13/23 07:45 PG Care Time/CCT Total # of Minutes Spent Total Time Spent with Patient: Total time spent is greater than 50% in coordination of care (as documented) at patient's floor/unit and/or counseling patient: Coding Level of Care Code 73920 SUB INP/OBS CARE 3/50MIN Diagnoses Acute respiratory failure with hypoxia and hypercapnia J96.01; J96.02 Acute diastolic CHF (congestive heart failure) I50.31 Pneumonia J18.9 Laterality: left Lung location: unspecified part of lung Pneumonia type: due to unspecified organism Perforated viscus R19.8 Intra-abdominal abscess K65.1 SBO (small bowel obstruction) K56.[address] scan, chest R93.89 Acute metabolic encephalopathy G93.41 Sepsis A41.9 Acute respiratory failure type: with hypoxia Sepsis acute organ dysfunction status: with acute organ dysfunction Sepsis type: sepsis due to unspecified organism Severe sepsis shock status: unspecified SHEBA (acute kidney injury) N17.9 Elevated troponin R79.89 COPD (chronic obstructive pulmonary disease) J44.9 Alcohol abuse F10.10 Paroxysmal A-fib I48.0 Polymyalgia rheumatica M35.3 Severe protein-calorie malnutrition E43 Rheumatoid arthritis M06.9 Anemia D64.9 DVT prophylaxis Z29.9 Hypokalemia E87.6 Hypomagnesemia E83.42 (3) Pneumonia Laterality: left Lung location: unspecified part of lung Pneumonia type: due to unspecified organism Qualified Code(s): J18.9 - Pneumonia, unspecified organism (9) Sepsis Acute respiratory failure type: with hypoxia Sepsis acute organ dysfunction status: with acute organ dysfunction Sepsis type: sepsis due to unspecified organism Severe sepsis shock status: unspecified
--- NOTE | 2023-09-13 15:43 | Discharge Summary ---
Date of Service September 13, 2023 Admission HPI Per Admitting Provider Pipe is a 73-year-old male with PMH of EtOH dependence, alcohol withdrawal seizures, COPD, paroxysmal A-fib, PMR, Hx of DVT, CKD stage III, and chronic lower back pain with opioid dependence. He presented via EMS for hypoxia at 78% on RA from [facility], after recent discharge from [facility] for pneumonia. Patient was admitted to [facility] on 08/03 due to alcohol withdrawal and seizures, and required intubation and mechanical ventilation. Patient was discharged today 08/26 to [facility]hab, where he became hypoxic with EMS. Patient was started on BiPAP in the ED. Nonverbal, lethargic, unable to follow commands, however responds to stimuli and is able to nod when asked questions. Vital stable at time of admission (on BiPAP; FiO2 ratio 55). ED course: NSS 1000 mL x 2 Zosyn 4.5g IV BiPAP Unable to obtain ROS According to documentation from [facility], the patient has a standing order for full resuscitation as of 08/26/2023 at 1307; patient is not currently able to provide a CODE STATUS. Per review of hospitalist progress note on 08/25/2023 patient was A&Ox 3 and conversant. He was nonverbal, lethargic upon arrival in the ED. However, he became oriented to name, birthday, and location (not month) upon initial resuscitation on BiPap. Attempted to contact patient's daughter, Hortencia, but was unable to reach. Principal Diagnosis Suspected recurrent intra-abdominal abscess, cecal perforation, combined metabolic and toxic encephalopathy, acute kidney injury Discharge Exam General-unresponsive. No fever HEENT-head atraumatic and normocephalic, pupils equal and reactive to light, extraocular muscles intact. Oral mucosa is dry Neck-no lymphadenopathy or thyromegaly, trachea midline Chest-scattered rhonchi. Diminished breath sounds. No wheezing Cardiac-tachycardic regular rhythm. Normal S1 and S2 Abdomen-hypoactive bowel sounds. No hepatosplenomegaly Extremities-1+ pitting edema bilateral lower extremities below the knees Neuro-unresponsive. Cannot assess Psych-cannot assess Discharge Data Allergies Allergy/AdvReac Type Severity Reaction Status Date / Time bee venom protein (honey bee) Allergy Severe Anaphylaxis Verified 08/26/23 19:49 lorazepam AdvReac Intermediate Confusion Verified 09/03/23 09:52 ibuprofen [From Motrin] AdvReac Mild Rash Verified 08/26/23 19:13 Consultations 08/26/23 18:36 ED Decision to Admit Stat 08/26/23 23:04 Consult Pulmonology Routine 08/31/23 05:47 Consult Gastroenterology Stat 08/31/23 06:01 Consult General Surgery Stat 08/31/23 06:24 Consult Meal Cooker Stat 09/06/23 16:49 Consult Palliative Care Routine 09/13/23 13:46 Burn CD for patient Stat Procedures Performed Operation Date: 08/31/23 07:00 Actual Procedures p Exploratory Laparotomy and Partial Resection of Cecum with Drainage of Pelvic Abscess - Ken Sorenson MD Ordered Studies 08/26/23 17:22 CT head/brain wo con Stat 08/26/23 17:48 CT chest diagnostic wo con Stat 08/27/23 11:00 FL video swallow Routine 08/31/23 03:58 CT abd pelvis IV con only Stat 08/31/23 04:28 CT angio chest PE protocol Stat 09/09/23 10:30 FL video swallow Routine 09/10/23 13:23 MR brain wo con Routine 09/11/23 21:38 CT Abd and Pelvis [CT abd pelvis IV con only] Stat 09/13/23 10:20 CT abd pelvis wo con Urgent Hospital Course (1) Acute respiratory failure with hypoxia and hypercapnia: Supplemental oxygen to maintain saturation greater than 90%. Treat suspected underlying atelectasis and possibility of pneumonia. It appears that he does not have congestive heart failure. Serial chest x-ray. Wean off as tolerated. (2) Acute diastolic CHF (congestive heart failure): Parenteral Lasix has been discontinued. He may have had acute diastolic CHF earlier this admission but not currently. He has received IV fluid bolus and is on continuous IV fluids now. He is NPO. BNP is elevated at 614 but not indicative of acute CHF at this time. Monitor intake and output. Serial chest x-ray. (3) Pneumonia: Suspected. Possibly bilateral. Cefepime and Flagyl have been switched to intravenous Zosyn, day 1. Serial chest x-ray. Sputum culture if sputum is produced. (4) Perforated viscus: s/p ex lap 08/31/[address] Sorenson ( POD #13) for perforated cecum. No malignancy seen on pathology report. Intra-peritoneal cultures grew pseudomonas - pansensitive - as well as bacteroides. He had been on zosyn, then briefly meropenem, then changed to cefepime/flagyl . White blood cell count remains elevated. Repeat abdominal pelvic CT scan done today, September 13, reveals fluid around the liver which could be a perihepatic abscess. Dr. Sorenson is aware. He will need transfer to a tertiary care facility for further treatment. Currently NPO. Eliquis is on hold. (5) Intra-abdominal abscess: as seen on ex lap 08/31/23. Possible recurrence in the perihepatic region on CT scan. He is now on intravenous Zosyn. (6) SBO (small bowel obstruction): Occurred early July upon presentation to [facility] in [facility] . This was treated conservatively with NG tube and he did not require surgery at that time. Resolved (7) Abnormal CT scan, chest: nodules also present - concerning for possible underlying malignancy. Appreciate pulm consultation and recs. This will need continued outpatient follow-up. (8) Acute metabolic encephalopathy: Due to sepsis present on admission. He may have an element of toxic encephalopathy at this time from the Seroquel, which has been discontinued. Supportive care. All LANDSCAPE SPECIALIST affecting medications have been discontinued (9) Sepsis: Present on admission. Initially resolved but appears to have recurred (10) SHEBA (acute kidney injury): Present on admission. Initially resolved but this has recurred. Parenteral Lasix has been discontinued. He is now on continuous IV fluids. Serial labs. Monitor intake and output (11) Elevated troponin: No evidence of acute coronary syndrome. Likely myocardial demand ischemia. (12) COPD (chronic obstructive pulmonary disease): Stable. Continue current medical management (13) Alcohol abuse: Chronic. Recent alcohol withdrawal treated at [facility] in July. Apparently this course was complicated by withdrawal seizures requiring intubation and ventilator support transiently. Last alcohol intake was over 1 month ago (14) Paroxysmal A-fib: He is again tachycardic. EKG is pending to evaluate rhythm. Eliquis is on hold. (15) Polymyalgia rheumatica: Steroid-dependent. Parenteral steroid therapy while NPO. Resume p.o. prednisone when able (16) Severe protein-calorie malnutrition: Currently n.p.o. status (17) Rheumatoid arthritis: Stable. Continue parenteral steroid therapy. Hydroxychloroquine is temporarily on hold (18) Anemia: H/H remain acceptable. B12, folate, Fe studies wnl. Likely anemia of chronic disease from RA, bone marrow suppression from etoh, blood draws, etc. (19) DVT prophylaxis: Eliquis therapy on hold (20) Hypokalemia: replaced . Resolved (21) Hypomagnesemia: replaced. Resolved Plan He has been accepted to [facility] by critical care Dr. Wang. He will be life flighted to their facility when arrangements are finalized. Total Time Total Time Spent Total Time Spent (In Minutes): 60 minutes Discharge Plan Discharge Items Patient Disposition: Transfer Acute Care Hospital Reason For Visit: RESPIRATORY DISTRESS Discharge Diagnosis: Suspected recurrent intra-abdominal abscess, cecal perforation, combined acute and toxic encephalopathy, acute kidney injury Activity: As commented below Activity Comment: Bedrest Non-emergency contact: Primary Care Provider Call non-emergency contact if: your symptoms worsen Follow-up/Referrals: Marion Jones Sa, MD [Primary Care Provider] - Diet: Nothing by Mouth Addtl Attending Provider Instructions: See primary care provider soon as possible after hospital and rehabilitation discharge Pending Studies at Discharge: No Stand-Alone Forms: [facility] Skilled Items Patient informed of condition?: Yes DNR: Yes Discharge Level of Care: Other Communicable Disease: No Discharge Prognosis: Deteriorating Lines: Peripheral IV Urinary Catheter: Yes Medications and DC Order Prescriptions: New folic acid 1 mg Tablet 1 mg PO QAM Qty: 0 0RF Cerovite Senior 0.4 mg-300 mcg- 250 mcg Tablet 1 tab PO QAM Qty: 0 0RF pantoprazole 40 mg Tablet,Delayed Release (Dr/Ec) 40 mg PO QAM Qty: 0 0RF bacitracin 500 unit/gram Ointment 1 applic EXT QSHIFT Qty: 0 0RF potassium chloride 20 mEq Tablet,Er Particles/Crystals 20 meq PO QAM Qty: 0 0RF thiamine HCl (vitamin B1) 100 mg Tablet 200 mg PO BID Qty: 0 0RF magnesium oxide 400 mg (241.3 mg magnesium) Tablet 400 mg PO BID Qty: 0 0RF olanzapine 10 mg Recon Soln 5 mg IM Q6H PRNQty: 0 0RF Continued acetaminophen [Tylenol] 325 mg Tablet 650 mg PO Q4H PRN (Reason: Pain (Scale Score 1-3)) ipratropium-albuterol 0.5 mg-3 mg(2.5 mg base)/3 mL Solution For Nebulization 3 ml INHALATION Q4H tizanidine 2 mg Tablet 2 mg PO TID PRN (Reason: MUSCLE SPASMS) amiodarone 200 mg Tablet 400 mg PO BID Rx Instructions: START 08/26/23 FOR 14 DAYS, STOP 09/09/23. amiodarone 200 mg Tablet 200 mg PO Q12H Rx Instructions: START 09/09/23, STOP 09/23/23 amiodarone 200 mg Tablet 200 mg PO DAILY Rx Instructions: START 09/24/22, THEN CONTINUE. ondansetron HCl [Zofran] 4 mg Tablet 4 mg PO Q4H PRN (Reason: NAUSEA/VOMITING) prednisone 20 mg Tablet 40 mg PO DAILY Rx Instructions: START 08/27/23 FOR 4 DAYS, STOP 08/31/23. sennosides-docusate sodium [Senokot-S] 8.6-50 mg Tablet 1 tab-cap PO QDL PRN (Reason: Constipation) dextrose [Insta-Glucose] 40 % Gel 1 ea PO DIRECTED PRN (Reason: Hypoglycemia) tramadol 50 mg Tablet 100 mg PO Q6H PRN (Reason: Pain (Scale Score 7-10)) Rx Instructions: LOWER BACK PAIN tramadol 50 mg Tablet 50 mg PO Q6H PRN (Reason: Pain (Scale Score 4-6)) Rx Instructions: LOWER BACK PAIN nortriptyline 25 mg Capsule 50 mg PO DAILY magnesium hydroxide [Milk of Magnesia] 400 mg/5 mL Suspension 30 ml PO DAILY PRN (Reason: Constipation) bisacodyl 10 mg Suppository 10 mg VA DAILY PRN (Reason: Constipation) pantoprazole 40 mg Tablet,Delayed Release (Dr/Ec) 40 mg PO DAILYBB Fleet Enema 19-7 gram/118 mL Enema 118 ml VA DAILY PRN (Reason: Constipation) docusate sodium 100 mg Capsule 100 mg PO BID hydroxychloroquine 200 mg Tablet 200 mg PO Q12H multivitamin with minerals Tablet 1 tab PO DAILY polyethylene glycol 3350 [Miralax] 17 gram/dose Powder 17 g PO QDL PRN (Reason: Constipation) albuterol sulfate 90 mcg/actuation Hfa Aerosol Inhaler 1 puff INHALATION Q6H PRN (Reason: Wheezing) Rx Instructions: CFC FREE metoprolol tartrate 25 mg Tablet 25 mg PO Q12H zinc sulfate 50 mg zinc (220 mg) Capsule 50 mg PO DAILY cholecalciferol (vitamin D3) [Vitamin D3] 50 mcg (2,000 unit) Capsule 50 mcg PO DAILY Eliquis 5 mg Tablet 5 mg PO Q12H Incruse Ellipta 62.5 mcg/actuation Blister With Device 1 inh INHALATION DAILY Discharge Orders: Discharge Order (Routine); Ordered 09/13/23 Ordered By: Davide Pham Admission Data Admit Date/Time: 08/26/23 20:14 Attending Provider: Davide Pham Admit Provider: Emre Navarrete Primary Care Provider: Marion Jones Sa Other Providers: Neal Randall; [facility]; Emre Navarrete; Jamir Crooks; Rian Hassan; Landy Abreu; Klaudia Mcgee; Vanessa Tran; Ira Wagner; Jeovanny Sepulveda; Sarabjit Virk; Suzanna Morgan; Azael Wells; Ramirez Liriano; Regan Green; Charmaine Menjivar; Francine Kelly; Cassie Vidal; Viri Chapin; Maldonado Burnett; Mikey Carter; Rian Aguila; Cherri Viramontes; Verito Petty Jr; Ken Sorenson; Adrien Tejada; Jaquan Chinchilla; Brennen Douglas; Bk Escobar; Mendel Oliveira; Taran Ryan; Jamilah Garcia; Laurence Sierra; Shaun Mary; Rainer Soni; Heather Enriquez; Jacqui Faulkner Coding Level of Care Code 52953 INP/OBS DISCH >30 MIN Diagnoses Acute respiratory failure with hypoxia and hypercapnia J96.01; J96.02 Acute diastolic CHF (congestive heart failure) I50.31 Pneumonia J18.9 Laterality: left Lung location: unspecified part of lung Pneumonia type: due to unspecified organism Perforated viscus R19.8 Intra-abdominal abscess K65.1 SBO (small bowel obstruction) K56.[address] scan, chest R93.89 Acute metabolic encephalopathy G93.41 Sepsis A41.9 Acute respiratory failure type: with hypoxia Sepsis acute organ dysfunction status: with acute organ dysfunction Sepsis type: sepsis due to unspecified organism Severe sepsis shock status: unspecified SHEBA (acute kidney injury) N17.9 Elevated troponin R79.89 COPD (chronic obstructive pulmonary disease) J44.9 Alcohol abuse F10.10 Paroxysmal A-fib I48.0 Polymyalgia rheumatica M35.3 Severe protein-calorie malnutrition E43 Rheumatoid arthritis M06.9 Anemia D64.9 DVT prophylaxis Z29.9 Hypokalemia E87.6 Hypomagnesemia E83.42
[2023-09-13] MEDS: PIPERACILLIN/TAZOBACTAM 4.5 GM in DEXTROSE 5% MINI-B 100 ML IV SCH ×2 (16:44→23:08)
[2023-09-13 17:03] LABS: Appearance Urine Cloudy (Clear); Bacteria Urine Automated Negative (Negative); Bilirubin Urine Negative (Negative); Blood Urine 3+ (Negative); Color Urine Dark Yellow; Epithelial Cell Urine Auto >30 /lpf (0-5); Glucose Urine UA Negative (Negative); Ketones Urine Trace (Negative); Leukocyte Esterase Urine Negative (Negative); Nitrite Urine Positive (Negative); Protein Urine 2+ (Negative); Specific Gravity Urine 1.027 (1.000-1.030); Urobilinogen Urine Negative (Negative); pH Urine 5.5 (4.5-7.5)
[2023-09-13 17:15] LABS: RBC Urine Automated >30 /hpf (0-4)
[2023-09-14 02:05] LABS: A calco-baum cmplx NotReported Not Detected (NotDetected); Bact fragilis Not Reported Not Detected (NotDetected); Blood Culture Id Panel See PCR Comment (NotDetected); C auris Not Reported Not Detected (NotDetected); Calbicans Not Reported Not Detected (NotDetected); Candida glabrata Not Reported Not Detected (NotDetected); Candida krusei Not Reported Not Detected (NotDetected); Cneoformans/gatti Not Reported Not Detected (NotDetected); Cparapsilosis Not Reported Not Detected (NotDetected); E cloacae compx Not Reported Not Detected (NotDetected); Efaecalis Not Reported Not Detected (NotDetected); Efaecium Not Reported DETECTED (NotDetected); Enterobacterales Not Reported Not Detected (NotDetected); Escherichia coli Not Reported Not Detected (NotDetected); H influenzae Not Reported Not Detected (NotDetected); K aerogenes Not Reported Not Detected (NotDetected); Koxytoca Not Reported Not Detected (NotDetected); Kpneumoniae grp Not Reported Not Detected (NotDetected); Lmonocyt Not Reported Not Detected (NotDetected); N meningitidis Not Reported Not Detected (NotDetected); P aeruginosa Not Reported Not Detected (NotDetected); Proteus spp Not Reported Not Detected (NotDetected); Salmonella spp Not Reported Not Detected (NotDetected); Smarcescens Not Reported Not Detected (NotDetected); Staph lugdunensis Not Reported Not Detected (NotDetected); Staph spp. Not Reported Not Detected (NotDetected); Staphaureus Not Reported Not Detected (NotDetected); Staphepi Not Reported Not Detected (NotDetected); Stenmaltophilia Not Reported Not Detected (NotDetected); Strep agal(GrpB) Not Reported Not Detected (NotDetected); Strep pneum Not Reported Not Detected (NotDetected); Strep pyog (GrpA) Not Reported Not Detected (NotDetected); Strep spp Not Reported Not Detected (NotDetected)
[2023-09-14 02:10] LABS: Enterococcus faecium DETECTED (NotDetected); VanAB Resistant Gene VRE DETECTED (NotDetected)
--- NOTE | 2023-09-14 12:06 | Electrocardiogram Report ---
Test Reason : Blood Pressure : / mmHG Vent. Rate : 099 BPM Atrial Rate : 099 BPM P-R Int : 000 ms QRS Dur : 092 ms QT Int : 334 ms P-R-T Axes : 060 -15 -62 degrees QTc Int : 428 ms Poor data quality, interpretation may be adversely affected Sinus rhythm Nonspecific ST abnormality Abnormal ECG Confirmed by Jono Villa ([id number]) on 09/14/2023 12:06:08 PM Referred By: REFERRED SELF Confirmed By:Danie Villa
== END 2023-09-14 01:30 | disposition short-term general hospital (02) | DRG 853 ==
LOC: ED 17:17 → SUATTDRO 20:14 → 2E 20:14 → 1E 08-31 06:44 → 2S 09-02 18:45